=== PATIENT | male | born 1945 | race Caucasian/White ===

== ENCOUNTER 2018-12-15 16:00 | Inpatient (IN) | payer OTHER ==
--- NOTE | 2018-12-15 16:14 | PDOC ---
Rapid Medical Evaluation Chief Complaint: Shortness of Breath Time Seen by Provider: 12/15/18 16:11 Medical Evaluation: Allergies Allergy/AdvReac Type Severity Reaction Status Date / Time No Known Allergies Allergy Verified 03/12/15 18:37 12/15/18 16:11 This patient had a brief in-person evaluation in triage CC: called by pmd for admission and further evaluation PE: appears short of breath decrease lung sound posteriorly o2 via nasal cannula bipedal edema, l>r, + erythematous of left leg orders:ekg, chest xray, labs This patient will proceed to the ED for further evaluation 12/15/18 16:13 Discharge Disposition - Diagnosis Cellulitis of leg - Referrals - Patient Instructions - Post Discharge Activity
[2018-12-15 17:27] LABS: BASO % 0.3 % (0-2.0); EOS % 0.8 % (0-4.5); HEMATOCRIT 36.7 % (35.4-49); LYMPH % 7.2 % (8-40); MCH 33.6 pg (25.7-33.7); MCHC 32.7 g/dl (32.0-35.9); MEAN CELL VOLUME 102.7 fl (80-96); MEAN PLT VOLUME 8.5 fl (7.5-11.1); MONO % 8.8 % (3.8-10.2); NEUT % 82.9 % (42.8-82.8); PLATELET COUNT 190 K/MM3 (134-434); RBC 3.57 M/mm3 (4.00-5.60); RDW 16.1 % (11.9-15.9); WHITE BLOOD COUNT 7.8 K/mm3 (4.0-10.0)
--- NOTE | 2018-12-15 17:47 | PDOC ---
History of Present Illness - General Chief Complaint: Shortness of Breath Stated Complaint: DIFFICULTY BREATHING Time Seen by Provider: 12/15/18 16:11 - History of Present Illness Initial Comments: Thompson Goodman is a 73yo man with a PMH of CHF, pulmonary HTN, severe COPD on home O2 (fev1 at 23% per , 3L at baseline), CAD s/p RCA stent who presents with worsening somnolence, hyoxia w/ increased O2 requirement, and LLE cellulitis. His is at bedside and provides additional evaluation. According to his , Mr Goodman had been doing well at home (recent PFT's, recent cardiac cath showing patent stent) but tripped and cut his left 1st toe about weeks ago. She reports that he was not caring for it very well, and the toe became infected. He went to his PMD and was diagnosed with cellulitis and started on Augmentin a few days ago. The wound continued to worsen, however, and she states that she saw increasing "green pus" draining from the wound, and he went back to the PMD yesterday. He was sent to urgent care for additional management, had cultures sent, and was told he would get new antibiotics when the cultures resulted. Today, he was called by his PMD and told to go to the ED for admission as he would need IV antibiotics. According to Mr Goodman's , he has become increasingly somnolent over the past week, sleeping up to 20 hours a day and falling asleep sitting up. He is normally awake, alert, and oriented; he has no cognitive deficits at baseline but has become confused. She additinoally notes that he has had an increased oxygen requirement, up to 5-6L to maintain sats of 90%. She believes that he was febrile yesterday though does not note fever today. Past History - Past Medical History Allergies/Adverse Reactions: Allergies Allergy/AdvReac Type Severity Reaction Status Date / Time No Known Allergies Allergy Verified 12/15/18 16:12 Home Medications: Ambulatory Orders Advair 500Mcg/50Mcg 01/09/12 Aspirin [ASA] 81 mg PO DAILY 01/09/12 Carvedilol [Coreg] 25 mg PO BID 01/09/12 Clopidogrel Bisulfate [Plavix] 75 mg PO DAILY 01/09/12 Ezetimibe [Zetia] 10 mg PO 01/09/12 Sertraline HCl [Zoloft] 25 mg PO DAILY 01/09/12 Simvastatin [Zocor] 5 mg PO 01/09/12 Asthma: Yes Cardiac Disorders: Yes (STENT) COPD: Yes Hypercholesterolemia: Yes Psychiatric Problems: Yes (DEPRESSION) Other medical history: CAD,PULMUNORY HYPERTESION - Surgical History Cardiac Surgery: Yes (stent) - Suicide/Smoking/Psychosocial Hx Smoking Status: No Smoking History: Never smoked Number of Cigarettes Smoked Daily: 10 Information on smoking cessation initiated: No Hx Alcohol Use: No Drug/Substance Use Hx: No Substance Use Type: None Hx Substance Use Treatment: No Review of Systems - Review of Systems Comments:: General: No fevers, no chills, no weight or appetite change, no malaise HEENT: No changes in vision, no changes in hearing, no congestion, no sore throat CV: No chest pain, no palpitations, +worsening BLE edema Pulm: See HPI - COPD, on home O2 GI: No nausea or vomiting, no change in bowel habits, no melena : No frequency, no urgency, no dysuria Musc: No back pain, no joint swelling, no recent injury Skin: LLE cellulitis, see HPI Endo: No excessive thirst, no heat/cold intolerance Heme: No unusual bruising or bleeding, no swollen glands Neuro: No syncope, no numbness/tingling, no focal weakness Vasc: No claudication Psych: No recent change in mood, no SI or HI *Physical Exam - Vital Signs Last Vital Signs Temp Pulse Resp BP Pulse Ox 98.3 F 75 23 H 105/50 L 83 L 12/15/18 16:05 12/15/18 16:05 12/15/18 16:05 12/15/18 16:05 12/15/18 16:05 - Physical Exam Comments: General: In some distress HEENT: Atraumatic, PERRL, EOMI, MMM, neck w/ full RM Cards: RRR, no murmur appreciated Pulm: Distant breath sounds, very poor air movement, +use of abdominal muscles. No clear wheezing or crackles Abd: Soft, nontender, nondistended Ext: BLE w/ 2-3+ pitting edema. LLE with erythema to anterior conteh with small tense vesicles. Small cut without drainage or bleeding to medial left 1st toe. Sensation to light touch intact over distal foot. Able to move toes. Normal capillary refill Vasc: Extremities WWP. Pedal pulses non-palpable 2/2 edema Skin: Normal color, no rashes or lesions Neuro: Awake, responsive to direct questions but repetitive, forgetful, not able to provide detailed information. CN grossly intact. Motor/sensory grossly intact and symmetric Psych: Mood appropriate to situation ED Treatment Course - LABORATORY CBC & Chemistry Diagram: 12/15/18 17:10 12/15/18 17:10 - ADDITIONAL ORDERS Additional order review: Laboratory Results 12/15/18 12/15/18 17:08 17:02 Anticoagulation Therapy No Result Required. Puncture Site No Result Required. ABG pH 7.33 L ABG pCO2 at Pt Temp 70.0 H ABG pO2 at Pt Temp 56.0 L ABG HCO3 35.5 H ABG O2 Sat (Measured) 86.8 L ABG O2 Content 13.4 L ABG Base Excess 7.8 H Dante Test No Result Required. O2 Delivery Device No Result Required. Oxygen Flow Rate No Result Required. Vent Mode No Result Required. Vent Rate No Result Required. Mechanical Rate No Result Required. Pressure Support Vent No Result Required. Magnesium 2.9 H 12/15/18 17:10 RBC 3.57 L MCV 102.7 H MCHC 32.7 RDW 16.1 H MPV 8.5 Neutrophils % 82.9 H Lymphocytes % 7.2 L D Monocytes % 8.8 Eosinophils % 0.8 Basophils % 0.3 Medical Decision Making - Medical Decision Making 12/15/18 17:46 Thompson Goodman is a 73yo man with a PMH of CHF, pulmonary HTN, severe COPD on home O2 (fev1 at 23% per , 3L at baseline), CAD s/p RCA stent who presents with worsening somnolence and confusion, hypoxia w/ increased O2 requirement, and LLE cellulitis not responsive to outpatient management. - Hypotensive to 96/56 when initially seen, Concern for sepsis secondary to LLE cellulitis. - Sats on 4L in mid 80's, possible CHF or COPD exacerbation, possible hypercapnea. Poor air movement, cannot exclude pneumonia - Septic workup ordered, ABG and BNP added 12/15/18 18:04 - Labs reviewed. Notable for ABG with acidosis to 7.33, hypercapnea to 68, bicarb 35 - c/w respiratory acidosis w/ metabolic compensation - BNP 2865, per was 2400 yesterday - CBC unremarkable - CXR with significant pulmonary edema - Vancomycin, lasix, duonebs, tetanus ordered 12/15/18 19:22 - Spoke to medicine team Dr Leti Crabtree regarding admission. Will be admitted to telemetry on Dr Mckeon's service - Updated pt and regarding results and plan. Both agree w/ admission Discussed with Dr France. Jennifer Livingston PGY2 *DC/Admit/Observation/Transfer Diagnosis at time of Disposition: COPD exacerbation Cellulitis of leg Qualifiers: Laterality: left Qualified Code(s): L03.116 - Cellulitis of left lower limb CHF exacerbation Qualifiers: Heart failure type: unspecified Qualified Code(s): I50.9 - Heart failure, unspecified - Discharge Dispostion Decision to Admit order: Yes - Referrals - Patient Instructions - Post Discharge Activity
[2018-12-15 17:52] LABS: ALBUMIN 3.6 g/dl (3.4-5.0); ALK PHOS 79 U/L (45-117); ANION GAP 1 MMOL/L (8-16); BILIRUBIN,TOTAL 0.7 mg/dL (0.2-1); CALCIUM 8.9 mg/dL (8.5-10.1); CHLORIDE 102 mmol/L (98-107); CO2 38 mmol/L (21-32); GLUCOSE,RANDOM 106 mg/dL (74-106); N-TERMINAL BNP 2865.3 pg/ml (5-125); POTASSIUM 5.1 mmol/L (3.5-5.1); SGOT/AST 29 U/L (15-37); SGPT/ALT 50 U/L (13-61); SODIUM 142 mmol/L (136-145); TOT PROT 7.2 g/dl (6.4-8.2)
[2018-12-15] MEDS ORDERED: DIPHTH,PERTUSS(ACELL),TET 0.5 ML DISP.SYRIN IM ONE ×2 (17:53→18:05)
[2018-12-15] MEDS ORDERED: FUROSEMIDE 40 MG/4 ML INJECTABLE VIAL IVPUSH ONE (17:55)
--- NOTE | 2018-12-15 17:55 | PDOC ---
Documentation entered by Raghu Edmonds SCRIBE, acting as scribe for Nathalia France DO. Nathalia France DO: This documentation has been prepared by the Kendal petty Elijah, SCRIBE, under my direction and personally reviewed by me in its entirety. I confirm that the documentation accurately reflects all work, treatment, procedures, and medical decision making performed by me. Attending Attestation - Resident Resident Name: Jennifer Livingston - ED Attending Attestation I have performed the following: I have examined & evaluated the patient, The case was reviewed & discussed with the resident, I agree w/resident's findings & plan - HPI HPI: 12/15/18 17:07 Patient is a 73 year old male with a significant past medical history of CHF, COPD and pulmonary HTN who presents to the ED with AMS and a wound to the left big toe occurring a week ago. As per at bedside the patient tripped on a chair a scraped his toe along the floor. Since then the patient has not treated the wound until being seen at his PCP at [facility] and was the brought into the ED. Patient denies CP, fever and cough. Allergies: NKA PCP: Dr. Charis Lamas - Physicial Exam PE: 12/15/18 17:12 Constitutional: +Poor Historian. Awake, alert, oriented. Head: Normocephalic. Atraumatic Eyes: PERRL. EOMI. Conjunctivae are not pale. ENT: Mucous membranes are moist and intact. Posterior pharynx without exudates or erythema. Uvula midline. Neck: Supple. Full ROM. No lymphadenopathy. Cardiovascular: Regular rate. Regular rhythm. S1, S2 regular. Distal pulses are 2+ and symmetric. Pulmonary/Chest: +Lungs very diminished with possible rale sounds at base. No wheezing or rhonchi. Abdominal: Soft and non-distended. There is no tenderness. No rebound, guarding or rigidity. No organomegaly. No palpable masses. Good bowel sounds. Back: No CVA tenderness. Musculoskeletal: + 4+ pitting edema to both lower extremities. +Left Big Toe cellulitis. no perineal drainage but warm and redness across forefoot up to tibula with some blistering. Full range of motion in all extremities. Skin: Skin is warm and dry. No petechiae. No purpura. Neurological: Alert and oriented to person, place, and time. Cranial nerves II -XII are grossly intact. Normal speech. Strength is grossly symmetric. No sensory deficits. Psychiatric: Good eye contact. Normal interaction, affect and behavior. - Medical Decision Making 12/15/18 17:51 I, Dr. Nathalia France, DO, attest that this document has been prepared under my direction and personally reviewed by me in its entirety. I further attest, that it accurately reflects all work, treatment, procedures and medical decision -making performed by me. 12/15/18 17:51 a/p: 73yo male with hx of copd/chf with sob and L leg redness and swelling -pt is a poor historian -pt states sob when laying flat, denies cp -denies abd pain -redness and swelling to l leg -b/l pitting edema to LE -low pulse ox upon arrival -concern for copd/chf exacerbation -concern for LE cellulitis from foot wound -will update tetanus -will send labs, ekg, cxr, foot xray, tetanus -cultures -abg -will need admission -PMD [facility] -Cards: Dr. Lawton -pulm at [facility] -recent cath 3 weeks ago R groin that is well healed, no bruit/thrill, minimal ecchymosis 12/15/18 17:57 pt with hypercapnic resp acidosis and also with hypoxia-will dose nebs elevated bnp, sob, orthopnea, LE swelling - will dose lasix 12/15/18 18:36 cxr shows acute pulm edema foot xray does not show signs of osteo on prelim read 12/15/18 18:44 resident discussed the case with KATHY who accepts pt to service Heart Score/ECG Review - ECG Intrepretation Comment:: 12/15/18 17:54 sinus at 75, lvh, t wave inversions with st depression v4-6, i, avl, abnl ekg, pvc
[2018-12-15 17:56] LABS: ARTERIAL BLOOD GAS PCO2 68.3 mmHg (35-45); ARTERIAL BLOOD GAS PO2 64.9 mmHg (80-105)
[2018-12-15] MEDS ORDERED: VANCOMYCIN 1 GM in D5W (PRE-DOCKED) 1,000 MG/250 ML IVPB ONE (17:56)
[2018-12-15] MEDS ORDERED: ALBUTEROL SO4 2.5/IPRATROPIUM 0.5 INH SOL 3 ML VIAL.NEB. NEB ONE ×3 (17:57→18:05)
[2018-12-15 17:58] LABS: ARTERIAL BLD GAS O2 SATURATION 91.6 % (95-98)
[2018-12-15 18:00] LABS: ARTERIAL BLOOD GAS BASE EXCESS 7.5 meq/l (-2-2)
[2018-12-15 18:03] LABS: CARBOXYHEMOGLOBIN 1.9 % (0-2)
[2018-12-15] MEDS ORDERED: VANCOMYCIN 1 GRAM (PRE-DOCKED) 1,000 MG/250 ML BAG IVPB ONE (18:05)
[2018-12-15] MEDS ORDERED: FUROSEMIDE 40 MG/4 ML INJECTABLE VIAL ONE (18:05)
[2018-12-15 18:06] LABS: ARTERIAL BLOOD GAS pH 7.33 (7.35-7.45)
--- NOTE | 2018-12-15 19:18 | HP ---
CHIEF COMPLAINT: weakness and cellulitis PCP: Zoltan cards: Aravind HISTORY OF PRESENT ILLNESS: Mr. Goodman is a 73yo male with COPD, newly diagnosed pulmonary HTN, sleep apnea , NYHA class II CHF, HTN, HLD, CAD s/p RCA stent who presents with weakness that has slowly progressed over the last 2 weeks. His , who was at bedside, reports that since the weather has gotten hotter, he has been worsening. He has become increasingly somnolent and has been sleeping up to 18 hours/day. Yesterday he was sitting at a table at home and got up then fell on the floor. He denies LOC but his reports he did hit his head. She did not witness the fall. He reports recently having a runny nose but no fever, chills, sore throat , or sinus congestion. He denies shortness of breath, cough, and wheezing. He does report chronic pedal edema which has gotten worse in the last week, especially the left foot that was injured. The patient also had a fall 1 week ago that resulted in an abrasion on his left conteh and foot. The leg has since developed vesicles, and his foot has a weeping wound and is more swollen than baseline. He also reports increased pedal edema and mild tenderness of his foot. He began Augmentin 5 days ago and had little improvement, so he went to urgent care yesterday. Cultures were done. He was scheduled to start doxy at home today but was sent by PCP to ED for abx. His reports he was just diagnosed with pulmonary HTN and has not picked up new script yet. She also said he does not allow her to go to doctor's appointments as well. She is concerned for poor medication compliance. He is supposed to use CPAP at night but does she says he does not use it. ER course was notable for: (1) CXR showed vascular congestion (2) 40mg Lasix and dub-neb administered (3) Vancomycin administered, x-ray was unremarkable Recent Travel: no PAST MEDICAL HISTORY: 1. COPD 2. pulm HTN 3. NYHA class II CHF (no recent echo on file) 4. HTN 5. HLD 6. CAD s/p RCA stent PAST SURGICAL HISTORY: knee Social History: Smoking: quit 25 years ago, 1ppd prior Alcohol: socially Drugs: no lives at home with - she reports he does not allow her to go to dr santos and there are concerns for medication compliance as well Family History: father passed from [place] at 76 Allergies No Known Allergies Allergy (Verified 12/15/18 16:12) HOME MEDICATIONS: Home Medications Medication Instructions Recorded Advair 500Mcg/50Mcg 01/09/12 Aspirin [ASA] 81 mg PO DAILY 01/09/12 Carvedilol [Coreg] 25 mg PO BID 01/09/12 Clopidogrel Bisulfate [Plavix] 75 mg PO DAILY 01/09/12 Ezetimibe [Zetia] 10 mg PO 01/09/12 Sertraline HCl [Zoloft] 25 mg PO DAILY 01/09/12 Simvastatin [Zocor] 5 mg PO 01/09/12 REVIEW OF SYSTEMS CONSTITUTIONAL: Present: generalized weakness Absent: fever, chills, diaphoresis, malaise, loss of appetite, weight change HEENT: Present: rhinorrhea Absent: nasal congestion, throat pain, ear pain CARDIOVASCULAR: Present: peripheral edema Absent: chest pain RESPIRATORY: Absent: cough, shortness of breath, dyspnea with exertion, orthopnea, wheezing GASTROINTESTINAL: Absent: abdominal pain, nausea, vomiting, diarrhea GENITOURINARY: Absent: dysuria MUSCULOSKELETAL: Absent: myalgia SKIN: Present: abrasion, blister Absent: rash, itching, pallor HEMATOLOGIC/IMMUNOLOGIC: Absent: easy bleeding, easy bruising, frequent infections ENDOCRINE: Absent: unexplained weight gain, unexplained weight loss, heat intolerance, cold intolerance NEUROLOGIC: Absent: headache, dizziness PSYCHIATRIC: Absent: anxiety, depression, suicidal or homicidal ideation, hallucinations. ROS limited PHYSICAL EXAMINATION Vital Signs - 24 hr 12/15/18 12/15/18 12/15/18 16:05 16:45 19:07 Temperature 98.3 F 97.3 F L Pulse Rate 75 Pulse Rate [ 73 Right Radial] Respiratory 23 H 19 Rate Blood Pressure 105/50 L Blood Pressure 96/56 L [Left Arm] O2 Sat by Pulse 83 L 92 L 93 L Oximetry (%) GENERAL: Awake, alert, and fully oriented, in no acute distress. Pt mildly altered. HEAD: Normal with no signs of trauma. EYES: Pupils equal, round and reactive to light, extraocular movements intact, sclera anicteric, conjunctiva clear. No lid lag. EARS, NOSE, THROAT: Ears normal, nares patent. Moist mucous membranes. NECK: Normal range of motion, supple without lymphadenopathy, JVD, or masses. LUNGS: Crackles heard bilaterally, no wheezing or accessory muscle use, unable to completely inhale HEART: Regular rate and rhythm, systolic murmur ABDOMEN: Soft, nontender, not distended, normoactive bowel sounds, no guarding, no rebound, no masses. MUSCULOSKELETAL: Normal range of motion at all joints. No bony deformities or tenderness. UPPER EXTREMITIES: 2+ pulses, warm, well-perfused. No cyanosis. No clubbing. No peripheral edema. LOWER EXTREMITIES: Dorsalis pulses not appreciated, feet are cold, +1 pitting edema in both feet with left foot sightly more edematous, left steeping press tender to touch. Left dorsal surface small abrasion near base of toes. Lower third of left conteh erythematous with multiple vesicles. NEUROLOGICAL: Cranial nerves II-XII intact. Normal speech. PSYCHIATRIC: Cooperative. Good eye contact. Appropriate mood and affect. SKIN: Warm, dry, normal turgor, no rashes or lesions noted other than listed in LE, normal capillary refill. Laboratory Results - last 24 hr 12/15/18 12/15/18 12/15/18 16:51 17:02 17:08 WBC RBC Hgb Hct MCV MCH MCHC RDW Plt Count MPV Absolute Neuts (auto) Neutrophils % Lymphocytes % Monocytes % Eosinophils % Basophils % Nucleated RBC % Anticoagulation Therapy No Result Required. Puncture Site No Result Required. ABG pH 7.33 L ABG pCO2 at Pt Temp 68.3 H ABG pO2 at Pt Temp 64.9 L ABG HCO3 35.0 H ABG O2 Sat (Measured) 91.6 L ABG O2 Content 14.4 L ABG Base Excess 7.5 H Dante Test No Result Required. Carboxyhemoglobin 1.9 Methemoglobin 0.5 O2 Delivery Device No Result Required. Oxygen Flow Rate No Result Required. Vent Mode No Result Required. Vent Rate No Result Required. Mechanical Rate No Result Required. Pressure Support Vent No Result Required. Sodium Potassium Chloride Carbon Dioxide Anion Gap BUN Creatinine Est GFR (CKD-EPI)AfAm Est GFR (CKD-EPI)NonAf Random Glucose Lactic Acid 2.0 Calcium Magnesium Total Bilirubin AST ALT Alkaline Phosphatase Troponin I B-Natriuretic Peptide Total Protein Albumin 12/15/18 12/15/18 12/15/18 17:08 17:10 17:10 WBC 7.8 RBC 3.57 L Hgb 12.0 Hct 36.7 D MCV 102.7 H MCH 33.6 MCHC 32.7 RDW 16.1 H Plt Count 190 MPV 8.5 Absolute Neuts (auto) 6.4 Neutrophils % 82.9 H Lymphocytes % 7.2 L D Monocytes % 8.8 Eosinophils % 0.8 Basophils % 0.3 Nucleated RBC % 0 Anticoagulation Therapy Puncture Site ABG pH ABG pCO2 at Pt Temp ABG pO2 at Pt Temp ABG HCO3 ABG O2 Sat (Measured) ABG O2 Content ABG Base Excess Dante Test Carboxyhemoglobin Methemoglobin O2 Delivery Device Oxygen Flow Rate Vent Mode Vent Rate Mechanical Rate Pressure Support Vent Sodium 142 Potassium 5.1 Chloride 102 Carbon Dioxide 38 H Anion Gap 1 L BUN 29.0 H Creatinine 1.0 Est GFR (CKD-EPI)AfAm 86.76 Est GFR (CKD-EPI)NonAf 74.86 Random Glucose 106 Lactic Acid Calcium 8.9 Magnesium 2.9 H Total Bilirubin 0.7 AST 29 ALT 50 Alkaline Phosphatase 79 Troponin I < 0.02 B-Natriuretic Peptide 2865.3 H Total Protein 7.2 Albumin 3.6 ASSESSMENT/PLAN: Mr. Goodman is a 73yo male with COPD, newly diagnosed pulmonary HTN, RADHIKA non- compliant on CPAP, NYHA class II CHF, HTN, HLD, CAD s/p RCA stent who presents for gradual increase in weakness over 2 weeks and a fall yesterday. He also has an abrasion from a fall one week ago. 1. weakness 2/2 COPD exacerbation- He denies SOB, but has become increasingly weak over the last couple weeks. Increased O2 at home 3L-->6L. According to his , he may not be compliant on meds. CXR showed vascular congestion which is worse than previous CXR in 2015 on file. UA is negative for infection. Pt is afebrile and has no white count (7.8). Pt BP 107/55. ABG @17:02 pH 7.33, pCO2 68.3. He was on 6L O2 NC in ED sat in low 90s, and received duo-neb. He denies SOB but he is not a good historian. Given the weakness, he likely has a COPD exacerbation. Pt could also have CHF exacerbation vs pulmonary HTN vs unlikely infection. -duo-nebs Q4H PRN SOB -Ventolin 2 puffs Q4H PRN -prednisone 60mg Q daily -BiPAP, but pt may not be compliant -repeat CXR during hospitalization 2. acute on chronic CHF- Pt has increasing weakness and has had recent falls. He is not compliant on meds. CXR showed vascular congestion. BNP 2865 with no comparison on file. Pt BP is 107/55. EKG shows no acute changes. He denies any cardiac or pulmonary symptoms in ROS, so history is limited in diagnosing. He does have crackles bilaterally on auscultation and pitting edema in feet. He does not have an echo on file. This is likely acute on chronic CHF. Per his answers, he is currently NYHA Class II. -Bumex 2mg BID x 1 day, then reevaluate -start home meds- metoprolol succinate, Bumex as above, epilerenone -CXR during hospitalization -CBC -CMP -Mg -telemetry 3. respiratory acidosis- ABG @17:02 pH7.33, pCO2 68.3, pO2 64.9. CMP bicarb 38 so has metabolic compensation. Pt does not use CPAP at home. He does normally use 3L O2 but has been increased in the last couple weeks. -encourage BiPAP use -repeat ABG -repeat CMP 4. left leg cellulitis- Pt had fall with abrasion. He has had erythema, vesicles , and increased edema and tenderness on foot. Augmentin did not improve symptoms. Left foot x-ray is unremarkable. Pt was to start doxy today. He was given Vancomycin 1,000mg in ED. 5. macrocytosis- MCV 102.7. Pt is not anemic (12.0/36.7). -B12 -folate -iron studies 6. hyperlipidemia- no recent lipid panel on file, but pt is on meds at home -ezetimibe and lipitor from home 7. mood disorder- Pt appears to be altered and cannot give good history. He is pleasant during interviewing. He has had suicidal ideations lately though. He likely has bipolar disorder vs MDD vs TARAN. -continue home lamictal, sertraline -psych consult DVT Ppe Lovenox 40mg Q daily FEN PO fluids monitor electrolytes sodium restricted diet Visit type - Emergency Visit Emergency Visit: Yes ED Registration Date: 12/15/18 Care time: The patient presented to the Emergency Department on the above date and was hospitalized for further evaluation of their emergent condition. - New Patient This patient is new to me today: Yes Date on this admission: 12/16/18 - Critical Care Critical Care patient: No ATTENDING PHYSICIAN STATEMENT I saw and evaluated the patient. I reviewed the resident's note and discussed the case with the resident. I agree with the resident's findings and plan as documented. SUBJECTIVE: OBJECTIVE: ASSESSMENT AND PLAN:
--- NOTE | 2018-12-15 20:09 | PN ---
Teaching Attending Note Name of Resident: Pat Yarbrough ATTENDING PHYSICIAN STATEMENT I saw and evaluated the patient. I reviewed the resident's note and discussed the case with the resident. I agree with the resident's findings and plan as documented. Patient presents tot he ER with multiple complaints; LE cellulitis and swelling with elevated BNP with intermittent confusion at home. He is afebrile and hemodynamically stable. 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 He is also noncompliant with CPAP (history of RADHIKA). Some discrepancies between medication lists from pulm and CV med lists. Sounds like he should be on Bumex 2 BID (1:1 IV conversion); given lasix in ER. No prior echoes or BNP in system but recent cath (R and L heart? at [facility] with records pending). Recent in-office spirometry shows diminished FEV1 with some reversibility ( says he actually had asthma hx); scanning into chart. became tearful during our visit and requested social work help due to issues caring for him at home. Foot XR negative for osteo LE venous/arterial dopplers pending ASSESSMENT AND PLAN: Patient with a history of pulmonary HTN (WHO class unknown), COPD/Asthma (with worsening FEV1, on home O2), CHF (LVEF, Diastolic fn unknown but with recent cath/OP studies which are pending); he presents with L-foot wound, intermittent confusion, LE edema (which is somewhat chronic) and noted to have an elevated BNP. tells us he is noncompliant at home and she is requesting psychiatry consult/social work consult. # Chronic Respiratory Acidosis 2/2 Pulmonary HTN/COPD # Toxic Metabolic Encephalopathy 2/2 intermittent CO2 narcosis due to noncompliance # COPD exacerbation # CHF exacerbation (LVEF and type unknown) # Noncompliance # Foot Wound # CKD-III # Depression Patient presents for multiple issues. In terms of the respiratory issues, I believe he is in slight COPD exacerbation and CHF (2/2 pulm HTN? Records pending) exacerbation also due to noncompliance; this combined with his aversion to nightly CPAP is likely contributing to his toxic encephalopathy. We will put him on qHS CPAP, give him his nightly dose of Bumex IV combined with the dose of lasix he got in the ER, and then continue him on 2mg BID ( noncompliance at home so will try with his old home dose with the increased dose given tonight). Obtain OP cath and echo results; can hold off ordering here unless no recent echo. For COPD exacerbation, we will place him on PO prednisone and schedule his duonebs and place him on PRN albuterol. Can consider pulmonary consult. Can also consider CV consult. For his foot, checking ESR and CRP. As no fever or WBC can avoid IV abx for now. Followup blood cultures; wound cultures from a superficial source on the foot are unreliable. Consider wound care. If clinically worsen empiric abx. Given CAD hx is at risk for PAD so will check dopplers. For macrocytosis without anemia, checking B12/Folate and iron studies. Though h/ h wnl, he is chronically hypoxemic which could augment RBC production. Full code
[2018-12-15] MEDS ORDERED: ALBUTEROL SO4 2.5/IPRATROPIUM 0.5 INH SOL 3 ML VIAL.NEB. NEB PRN (20:10)
[2018-12-15] MEDS ORDERED: BUMETANIDE INJECTION 1 MG/4 ML VIAL IVPUSH ONE ×2 (20:54→20:55)
[2018-12-15] MEDS ORDERED: BUMETANIDE 0.25 MG/1 ML INJ. 10ML MULTI-DOSE VIAL IVPUSH ONE (21:00)
[2018-12-15 21:06] LABS: URINE APPEARANCE CLEAR; URINE BILIRUBIN NEGATIVE (NEGATIVE); URINE COLOR YELLOW; URINE GLUCOSE (UA) NEGATIVE (NEGATIVE); URINE KETONE NEGATIVE (NEGATIVE); URINE LEUK ESTERASE NEGATIVE (NEGATIVE); URINE NITRITE NEGATIVE (NEGATIVE); URINE PROTEIN NEGATIVE (NEGATIVE)
[2018-12-15] MEDS: RANOLAZINE E.R. 1,000 MG TABLET (FP) PO SCH (22:37)
[2018-12-15] MEDS: predniSONE 20 MG TABLET (UD) PO SCH (22:37)
[2018-12-15] MEDS: ATORVASTATIN CA 40 MG TABLET (FP) PO SCH (22:37)
[2018-12-15] MEDS: traZODone HCL 50 MG TABLET (FP) PO SCH (22:37)
[2018-12-15] MEDS: ENOXAPARIN NA (PORCINE) 40 MG/0.4 ML DISP.SYRIN SQ SCH (22:47)
[2018-12-16] MEDS: EPLERENONE 25 MG TABLET PO SCH ×2 (05:35→10:40)
[2018-12-16] MEDS ORDERED: BUMETANIDE INJECTION 1 MG/4 ML VIAL IVPUSH SCH (06:00)
[2018-12-16 07:04] LABS: HEMATOCRIT 34.9 % (35.4-49); HEMOGLOBIN 11.3 GM/dL (11.7-16.9); MCH 33.3 pg (25.7-33.7); MCHC 32.5 g/dl (32.0-35.9); MEAN CELL VOLUME 102.6 fl (80-96); MEAN PLT VOLUME 8.9 fl (7.5-11.1); PLATELET COUNT 182 K/MM3 (134-434); RDW 15.6 % (11.9-15.9); WHITE BLOOD COUNT 7.5 K/mm3 (4.0-10.0)
[2018-12-16 07:40] LABS: ALBUMIN 3.3 g/dl (3.4-5.0); BILIRUBIN,TOTAL 0.6 mg/dL (0.2-1); BLOOD UREA NITROGEN 32.5 mg/dL (7-18); CALCIUM 8.3 mg/dL (8.5-10.1); CREATININE 1.1 mg/dL (0.55-1.3); POTASSIUM 5.1 mmol/L (3.5-5.1); TOT PROT 6.4 g/dl (6.4-8.2)
[2018-12-16] MEDS ORDERED: SERTRALINE HCL 25 MG TABLET (FP) PO SCH (10:00)
[2018-12-16] MEDS ORDERED: PT OWN MED DRAWER 7, Y5N ONE ×3 (10:24→22:08)
[2018-12-16] MEDS: ASPIRIN 81 MG CHEWABLE TABLETS PO SCH (10:39)
[2018-12-16] MEDS: predniSONE 20 MG TABLET (UD) PO SCH (10:39)
[2018-12-16] MEDS: RANOLAZINE E.R. 1,000 MG TABLET (FP) PO SCH ×2 (10:40→21:23)
[2018-12-16] MEDS: EZETIMIBE 10 MG TABLET (FP) PO SCH (10:40)
[2018-12-16] MEDS: ENOXAPARIN NA (PORCINE) 40 MG/0.4 ML DISP.SYRIN SQ SCH (10:40)
[2018-12-16] MEDS: lamoTRIgine 25 MG TABLET PO SCH (10:40)
--- NOTE | 2018-12-16 11:33 | CON.CARD ---
Consult Consult Specialty:: Cardiology Referred by:: Hospitalist Medicine Reason for Consultation:: LE edema, MCNAM[place], CAD s/p DAVID, diastolic dysfunction, HTN heart disease, hyperlipidemia, COPD, OSAS and pulm HTN - History of Present Illness Chief Complaint: Confusion and LE edema History of Present Illness: 73 yo male CAD s/p DAVID prox RCA 08/23/2003, DAVID for prox RCA ISR 10/03/2004, POBA prox RCA 12/12/2018, [employer] prox RCA 12/21/2012), diastolic dysfunction with h /o failure, hypertensive cardiovascular disease, hyperlipidemia, COPD on home O2 , OSAS noncompliant with cpap, pulm HTN recent R&LHc 11/12/2018 referred for LE cellulitis and swelling with elevated BNP with intermittent confusion at home. He is afebrile and hemodynamically stable. 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 He is also noncompliant with CPAP (history of RADHIKA). Some discrepancies between medication lists from pulm and CV med lists. Sounds like he should be on Bumex 2 BID (1:1 IV conversion); given lasix in ER. Recent in-office spirometry shows diminished FEV1 with some reversibility ( says he actually had asthma hx); scanning into chart. became tearful during visit and requested social work help due to issues caring for him at home. He continues to report dyspnea with min activity and persistent dependent LE edema, denies chest pain. Foot XR negative for osteo LE venous/arterial dopplers pending - History Source History Provided By: Medical Record Limitations to Obtaining History: Poor Historian - Alcohol/Substance Use Hx Alcohol Use: No - Smoking History Smoking history: Never smoked Aproximately how many cigarettes per day: 10 Home Medications - Allergies Allergies/Adverse Reactions: Allergies Allergy/AdvReac Type Severity Reaction Status Date / Time No Known Allergies Allergy Verified 12/15/18 16:12 - Home Medications Home Medications: Ambulatory Orders Aspirin [ASA] 81 mg PO DAILY 01/09/12 Sertraline HCl [Zoloft] 200 mg PO DAILY 01/09/12 Albuterol Sulfate Inhaler - [Ventolin HFA Inhaler -] 1 - 2 puff IH PRN PRN MDD Q4-6 hours 12/15/18 Atorvastatin Ca [Lipitor] 40 mg PO HS 12/15/18 Bumetanide 2 mg PO BID 12/15/18 Cholecalciferol (Vitamin D3) [Vitamin D3] 1,000 mg PO DAILY 12/15/18 Eplerenone 25 mg PO BID 12/15/18 Ezetimibe 10 mg PO DAILY 12/15/18 Lamotrigine [Lamictal] 25 mg PO DAILY 12/15/18 Metoprolol Succinate [Toprol Xl] 50 mg PO BID 12/15/18 Ranolazine [Ranexa] 1,000 mg PO BID 12/15/18 Umeclidinium [place] [Incruse Ellipta] 1 puff IH DAILY 12/15/18 Review of Systems - Review of Systems Cardiovascular: reports: Edema, Shortness of Breath Respiratory: reports: Exercise Intolerance, SOB on Exertion Vital Signs: Vital Signs Temperature 97.8 F 12/16/18 05:16 Pulse Rate 63 12/16/18 08:44 Respiratory Rate 22 H 12/16/18 08:44 Blood Pressure 107/69 12/16/18 08:44 O2 Sat by Pulse Oximetry (%) 96 12/16/18 08:47 Constitutional: Yes: No Distress, Calm Neck: Yes: Supple Respiratory: Yes: Regular, Diminished, On Nasal O2 Gastrointestinal: Yes: Normal Bowel Sounds, Soft Cardiovascular: Yes: Regular Rate and Rhythm JVD: No Carotid Bruit: No Heart Sounds: Yes: S1, S2 Murmur: Yes: Systolic Murmur, Grade 2 Edema: Yes Edema: LLE: 1+, RLE: 1+ - Other Data Labs, Other Data: CBC, BMP 12/16/18 05:52 12/16/18 05:52 Troponin, BNP 12/15/18 17:10 Troponin I < 0.02 B-Natriuretic Peptide 2865.3 H Troponin, BNP 12/15/18 17:10 Troponin I < 0.02 B-Natriuretic Peptide 2865.3 H 10/25/2018 NSR @ 74 LAD, LVH with repol abnl Ejection Fraction %: LVEF > or = 40 % Imaging - Results Chest X-ray: Report Reviewed (Weak inspratory effort, congestive changes) Problem List - Problems (1) Coronary artery disease Code(s): I25.10 - ATHSCL HEART DISEASE OF [place] CORONARY ARTERY W/O ANG PCTRS Qualifiers: Coronary Disease-Associated Artery/Lesion type: [place] artery [place] vs. transplanted heart: [place] heart Associated angina: without angina Qualified Code(s): I25.10 - Atherosclerotic heart disease of [place] coronary artery without angina pectoris (2) S/P right coronary artery (RCA) stent placement Code(s): Z95.5 - PRESENCE OF CORONARY ANGIOPLASTY IMPLANT AND GRAFT (3) Hyperlipidemia Code(s): E78.5 - HYPERLIPIDEMIA, UNSPECIFIED Qualifiers: Hyperlipidemia type: pure hypercholesterolemia Qualified Code(s): E78.00 - Pure hypercholesterolemia, unspecified; E78.0 - Pure hypercholesterolemia (4) RADHIKA (obstructive sleep apnea) Code(s): G47.33 - OBSTRUCTIVE SLEEP APNEA (ADULT) (PEDIATRIC) (5) Pulmonary hypertension assoc with unclear multi-factorial mechanisms Code(s): I27.29 - OTHER SECONDARY PULMONARY HYPERTENSION (6) Toxic metabolic encephalopathy Code(s): G92 - TOXIC ENCEPHALOPATHY (7) Hypertensive cardiomyopathy Code(s): I11.9 - HYPERTENSIVE HEART DISEASE WITHOUT HEART FAILURE; I43 - CARDIOMYOPATHY IN DISEASES CLASSIFIED ELSEWHERE Qualifiers: Heart failure presence: with heart failure Qualified Code(s): I11.0 - Hypertensive heart disease with heart failure; I43 - Cardiomyopathy in diseases classified elsewhere (8) CHF exacerbation Code(s): I50.9 - HEART FAILURE, UNSPECIFIED Qualifiers: Heart failure type: diastolic Qualified Code(s): I50.33 - Acute on chronic diastolic (congestive) heart failure (9) COPD exacerbation Code(s): J44.1 - CHRONIC OBSTRUCTIVE PULMONARY DISEASE W (ACUTE) EXACERBATION (10) Hypertrophic cardiomyopathy Code(s): I42.2 - OTHER HYPERTROPHIC CARDIOMYOPATHY Assessment/Plan 11/12/2018 R&LHc Elevated right-sided pressures, moderate pulm HTN, normal PVRI , elevated PXWP, elevated LVEDP, decreased cardiac output, 1 vessel CAD with occluded prox RCA filling via bridging collaterals, hyperdynamic systolic function 11/08/2018 Echo: Mod cLVH with normal systolic function LVEF 60-65%, grade II diastolic dysfunction with elevated filling pressures, hyperdynamic mid cavity with obliteration suggestive of mid cavity obstruction, resting left ventricular outflow tract gradient 25 mmHg increasing to 33 mmHg with Valsalva, mild LAE, normal RV size and fxn, mild-mod MR, mild TR RVSP 33 mmHg 09/22/2017 Dobutamine Myoview: Moderate size inferior perfusion defect wth mild ischemia, normal LVEF 88% 1. Acute on chronic hypercapneic, hypoxemic respiratory failure with toxic metabolic encephelopathy and underlying 2. Acute on chronic diastolic heart failure, mod functional MS and mod pulm HTH 3. Acute exacerbation of COPD 4. OSAS not compliant with cpap 5. 1 vessel CAD h/o RCA stents 6. Hypertensive heart disease/HOCM of elderly 7. Hyperlipidemia 8. Abnormal Ha1c P:1. IV diuresis (Bumex 2 bid) with monitor diuretic response, renal fxn and electrolytes 2. BD, steroids, O2 as needed, cpap nightly, observe off abx 3. Cardiac MRI as outpatient to evaluate HOCM of elderly 4. Continue ASA 81 qd, eplerenone 25 bid, Zetia 10 qd, Lipitor 40 qd, Toprol XL 50 bid, Ranexa 1000 bid 5. Check TSH, lipid panel, Ha1c, wound care 6. Thank you for consultative opportunity
--- NOTE | 2018-12-16 14:38 | EKG ---
Test Reason : Blood Pressure : / mmHG Vent. Rate : 075 BPM Atrial Rate : 075 BPM P-R Int : 146 ms QRS Dur : 090 ms QT Int : 406 ms P-R-T Axes : 054 -48 153 degrees QTc Int : 453 ms POOR DATA QUALITY, INTERPRETATION MAY BE ADVERSELY AFFECTED SINUS RHYTHM WITH OCCASIONAL PREMATURE VENTRICULAR COMPLEXES POSSIBLE LEFT ATRIAL ENLARGEMENT LEFT ANTERIOR FASCICULAR BLOCK LEFT VENTRICULAR HYPERTROPHY WITH REPOLARIZATION ABNORMALITY LATERAL INFARCT , AGE UNDETERMINED ABNORMAL ECG WHEN COMPARED WITH ECG OF 12-MAR-2015 18:41, SIGNIFICANT CHANGES HAVE OCCURRED Confirmed by LESLEY ALVAREZ MD ([id number]) on 12/16/2018 2:38:21 PM Referred By: Confirmed By:LESLEY ALVAREZ MD
--- NOTE | 2018-12-16 16:06 | PN ---
Physical Exam: SUBJECTIVE: Patient seen and examined at bedside. pt has no acute complaints. pt denies CP, SOB, palpitations, dizziness. Pt states the redness of his legs is improving since the cellulitis first began OBJECTIVE: Vital Signs Period Temp Pulse Resp BP Sys/Govea Pulse Ox Last 24 Hr 97.3 F-98.6 F 63-73 18-22 90-126/48-69 90-96 GENERAL: The patient is awake, alert, and fully oriented, in no acute distress. HEAD: Normal with no signs of trauma. EYES: PERRL, extraocular movements intact, sclera anicteric, conjunctiva clear. No ptosis. ENT: Ears normal, nares patent, oropharynx clear without exudates, moist mucous membranes. NECK: Trachea midline, full range of motion, supple. LUNGS: Breath sounds equal, clear to auscultation bilaterally, no wheezes, no crackles, no accessory muscle use. HEART: Regular rate and rhythm, S1, S2 without murmur, rub or gallop. ABDOMEN: Soft, nontender, nondistended, normoactive bowel sounds, no guarding, no rebound, no hepatosplenomegaly, no masses. EXTREMITIES: 2+ pulses, warm, well-perfused, no edema. NEUROLOGICAL: Cranial nerves II through XII grossly intact. Normal speech, gait not observed. PSYCH: Normal mood, normal affect. SKIN: Warm, dry, normal turgor, no rashes or lesions noted Laboratory Last Values WBC 7.5 K/mm3 (4.0-10.0) 12/16/18 05:52 RBC 3.40 M/mm3 (4.00-5.60) L 12/16/18 05:52 Hgb 11.3 GM/dL (11.7-16.9) L 12/16/18 05:52 Hct 34.9 % (35.4-49) L 12/16/18 05:52 MCV 102.6 fl (80-96) H 12/16/18 05:52 MCH 33.3 pg (25.7-33.7) 12/16/18 05:52 MCHC 32.5 g/dl (32.0-35.9) 12/16/18 05:52 RDW 15.6 % (11.9-15.9) 12/16/18 05:52 Plt Count 182 K/MM3 (134-434) 12/16/18 05:52 MPV 8.9 fl (7.5-11.1) 12/16/18 05:52 Absolute Neuts (auto) 6.4 K/mm3 (1.5-8.0) 12/15/18 17:10 Neutrophils % 82.9 % (42.8-82.8) H 12/15/18 17:10 Lymphocytes % 7.2 % (8-40) L D 12/15/18 17:10 Monocytes % 8.8 % (3.8-10.2) 12/15/18 17:10 Eosinophils % 0.8 % (0-4.5) 12/15/18 17:10 Basophils % 0.3 % (0-2.0) 12/15/18 17:10 Nucleated RBC % 0 % (0-0) 12/15/18 17:10 ESR 25 mm/hr (0-20) H 12/15/18 21:40 Retic Count 1.69 % (0.5-1.5) H 12/15/18 05:52 Anticoagulation Therapy No Result Required. 12/15/18 17:02 Puncture Site No Result Required. 12/15/18 17:02 ABG pH 7.33 (7.35-7.45) L 12/15/18 17:02 ABG pCO2 at Pt Temp 68.3 mmHg (35-45) H 12/15/18 17:02 ABG pO2 at Pt Temp 64.9 mmHg (80-105) L 12/15/18 17:02 ABG HCO3 35.0 mmol/L (22-27) H 12/15/18 17:02 ABG O2 Sat (Measured) 91.6 % (95-98) L 12/15/18 17:02 ABG O2 Content 14.4 % vol (15-22) L 12/15/18 17:02 ABG Base Excess 7.5 meq/l (-2-2) H 12/15/18 17:02 Dante Test No Result Required. 12/15/18 17:02 Carboxyhemoglobin 1.9 % (0-2) 12/15/18 16:51 Methemoglobin 0.5 % (0-2) 12/15/18 16:51 O2 Delivery Device No Result Required. 12/15/18 17:02 Oxygen Flow Rate No Result Required. 12/15/18 17:02 Vent Mode No Result Required. 12/15/18 17:02 Vent Rate No Result Required. 12/15/18 17:02 Mechanical Rate No Result Required. 12/15/18 17:02 Pressure Support Vent No Result Required. 12/15/18 17:02 Sodium 140 mmol/L (136-145) 12/16/18 05:52 Potassium 5.1 mmol/L (3.5-5.1) 12/16/18 05:52 Chloride 98 mmol/L (98-107) 12/16/18 05:52 Carbon Dioxide 41 mmol/L (21-32) H 12/16/18 05:52 Anion Gap 1 MMOL/L (8-16) L 12/16/18 05:52 BUN 32.5 mg/dL (7-18) H 12/16/18 05:52 Creatinine 1.1 mg/dL (0.55-1.3) 12/16/18 05:52 Est GFR (CKD-EPI)AfAm 77.32 12/16/18 05:52 Est GFR (CKD-EPI)NonAf 66.71 12/16/18 05:52 Random Glucose 156 mg/dL (74-106) H 12/16/18 05:52 Lactic Acid 2.0 mmol/L (0.4-2.0) 12/15/18 17:08 Calcium 8.3 mg/dL (8.5-10.1) L 12/16/18 05:52 Magnesium 3.0 mg/dL (1.8-2.4) H 12/16/18 05:52 Iron 38 ug/dL (50-175) L 12/15/18 21:35 TIBC 359 ug/dL (250-450) 12/15/18 21:35 Iron Saturation 10 % (17.5-39) L 12/15/18 21:35 Unsaturated IBC 321 ug/dL (200-275) H 12/15/18 21:35 Total Bilirubin 0.6 mg/dL (0.2-1) 12/16/18 05:52 AST 23 U/L (15-37) 12/16/18 05:52 ALT 48 U/L (13-61) 12/16/18 05:52 Alkaline Phosphatase 72 U/L (45-117) 12/16/18 05:52 Troponin I < 0.02 ng/ml (0.00-0.05) 12/15/18 17:10 C-Reactive Protein 1.3 MG/DL (0.00-0.3) H 12/15/18 21:35 B-Natriuretic Peptide 2865.3 pg/ml (5-125) H 12/15/18 17:10 Total Protein 6.4 g/dl (6.4-8.2) 12/16/18 05:52 Albumin 3.3 g/dl (3.4-5.0) L 12/16/18 05:52 Vitamin B12 405 pg/ml (193-986) 12/15/18 21:35 Serum Folate 19 ng/mL (3.1-17.5) H 12/15/18 21:35 Urine Color Yellow 12/15/18 20:15 Urine Appearance Clear 12/15/18 20:15 Urine pH 6.0 (5.0-8.0) 12/15/18 20:15 Ur Specific [place] 1.012 (1.010-1.035) 12/15/18 20:15 Urine Protein Negative (NEGATIVE) 12/15/18 20:15 Urine Glucose (UA) Negative (NEGATIVE) 12/15/18 20:15 Urine Ketones Negative (NEGATIVE) 12/15/18 20:15 Urine Blood Negative (NEGATIVE) 12/15/18 20:15 Urine Nitrite Negative (NEGATIVE) 12/15/18 20:15 Urine Bilirubin Negative (NEGATIVE) 12/15/18 20:15 Urine Urobilinogen 1.0 mg/dL (0.2-1.0) 12/15/18 20:15 Ur Leukocyte Esterase Negative (NEGATIVE) 12/15/18 20:15 Current Medications Albuterol Sulfate (Ventolin Hfa Inhaler -) 2 puff IH Q4H PRN PRN Reason: SHORT OF BREATH/WHEEZING Albuterol/Ipratropium (Duoneb -) 1 amp NEB RQID JONH Aspirin (Asa -) 81 mg PO DAILY [facility] Last Admin: 12/16/18 10:39 Dose: 81 mg Atorvastatin Calcium (Lipitor -) 40 mg PO HS [facility] Last Admin: 12/15/18 22:37 Dose: 40 mg Bumetanide (Bumex -) 1 mg PO BIDLASIX [facility] Ezetimibe (Zetia -) 10 mg PO DAILY [facility] Last Admin: 12/16/18 10:40 Dose: 10 mg Enoxaparin Sodium (Lovenox -) 40 mg SQ DAILY [facility] Last Admin: 12/16/18 10:40 Dose: 40 mg Eplerenone (Eplerenone) 25 mg PO BID [facility] Last Admin: 12/16/18 10:40 Dose: 25 mg Ampicillin Sodium/Sulbactam (Sodium 1.5 gm/ Sodium Chloride) 100 mls @ 200 mls/ hr IVPB Q6H-IV JONH Lamotrigine (Lamictal -) 25 mg PO DAILY [facility] Last Admin: 12/16/18 10:40 Dose: 25 mg Metoprolol Succinate (Toprol Xl -) 50 mg PO BID [facility] Last Admin: 12/16/18 10:39 Dose: 50 mg Ranolazine (Ranexa -) 1,000 mg PO BID [facility] Last Admin: 12/16/18 10:40 Dose: 1,000 mg Trazodone HCl (Desyrel -) 50 mg PO HS [facility] Last Admin: 12/15/18 22:37 Dose: 50 mg ASSESSMENT/PLAN: 73 yo M PMH COPD on 4L home O2, pulmonary HTN, RADHIKA, diastolic heart failure, HTN , HLD, CAD s/p RCA DAVID (2003,2004,2018) p/w altered mental status and cellulitis in LLE. Pt was being treated by PMD for cellulitis. Yesterday, pt had claimed suicidal ideation. In ED, pt had ABG showing chronic CO2 retention. Acute Respiratory Failure -possibly 2/2 COPD -ABG showing CO2 retention -pt currently saturating well on 5L O2, titrate down as tolerated -recommending CPAP use -c/w diuresis w/ Bumex po, IV formulation unavailable -cardiology is consulted, they recommend a cardiac MRI as outpt Acute Metabolic encephalopathy -possibly 2/2 hypercapnea -pt Alert and oriented x3 today -denied any thoughts to hurt himself or others. -psych is consulted L LE Cellulitis -XRay negative -pt completed augmentin x5d prior to admission. -start unasyn -Doppler neg for DVT -Doppler indicated B/L arterial pulse Iron def Anemia -no signs of bleeding -iron supplements RADHIKA -recommending CPAP DVT ppx: Lovenox Dispo: monitor on medicine floors Visit type - Emergency Visit Emergency Visit: No - New Patient This patient is new to me today: Yes Date on this admission: 12/16/18 - Critical Care Critical Care patient: No - Discharge Referral Referred to [facility] Med P.C.: No ATTENDING PHYSICIAN STATEMENT I saw and evaluated the patient. I reviewed the resident's note and discussed the case with the resident. I agree with the resident's findings and plan as documented. SUBJECTIVE: OBJECTIVE: ASSESSMENT AND PLAN:
[2018-12-16] MEDS: BUMETANIDE 1 MG TABLET PO SCH (17:28)
[2018-12-16] MEDS: AMPICILLIN NA/SULBACTAM NA 1.5 GM in SODIUM CHLORIDE 100 ML IVPB SCH ×2 (17:28→21:23)
--- NOTE | 2018-12-16 18:20 | PN ---
Teaching Attending Note Name of Resident: Sheron Richey ATTENDING PHYSICIAN STATEMENT I saw and evaluated the patient. I reviewed the resident's note and discussed the case with the resident. I agree with the resident's findings and plan as documented. SUBJECTIVE:states hes feeling fine. denies any symptoms. states his made him come. admits to requiring more home O2 the past few weeks but states he does that on occasion. states his lower extremity cellulitis is much improved. denies any CP, SOB, fever, chills, N/V/C/D, auditory or visual hallucinations. states he had no suicidal ideations and were just being "smart" with the staff yesterday when he stated he wanted to kill himself states dry weight is 202 OBJECTIVE: Last Vital Signs Temp Pulse Resp BP Pulse Ox 98.6 F 73 21 H 90/60 96 12/16/18 14:00 12/16/18 14:00 12/16/18 14:00 12/16/18 14:00 12/16/18 08:47 Intake & Output 12/13/18 12/14/18 12/15/18 12/16/18 23:59 23:59 23:59 23:59 Intake Total 125 450 Balance 125 450 Weight 209 lb 209 lb 5 oz General. mildly dyspnic during conversation CV S1 s2 RRR no murmur/rub/gallop Lungs crackles B/L bases no wheezing Abdomen soft NT/ND Extremities erythema L foot on hallux with skin tear at lateral side. and up on anterior conteh with fluid filled vessicles. area is not tender B/L LE 1+ pitting edema. cool extremities with weak DP pulses in both feet ASSESSMENT AND PLAN: 73yo M wtih PMHG RADHIKA on CPAP, HTN, COPD on 3L Home O2, CHF, CAD s/p stent with current treatment for LE cellulitis brought in by for altered mental status and claimed he had sucidial idealiations 1. acute toxic metabolic encephalopathy- liekly due to hypercapnia. appears more alert and oriented than yesterday however responded to some questioning inappropriately and tangentially. states he does not have any thoughts or plans to hurt himself or others. psych consulted 2. Acute hypoxixc hypercapnic respiratory failure- currently 92% on 4L NC. higher oxygen requirements than baseline. will cont with duiresis. check echo. will d/c steroids as not in COPD exacerbation at this time. cont inhlaers. titrate down oxygen requirement as tolerated. cardio consult. daily weights,. monitor electorlyes. 3. LLE cellulitis- completed augementin x5 days and started on doxy. will start on unasyn at this time. monitor for improvement. doppler neg for DVT. will check arterial dopplers as pulse can not be appreciated which may be from edema. F/u Cx 4. Iron def anemia- no signs of bleeding. no indication for transfusion. start iron supplements 5. RADHIKA on cpap-encourage cpap use 6. CAD s/p stent 7. DVT ppx- lovenox
[2018-12-16] MEDS: ALBUTEROL SO4 2.5/IPRATROPIUM 0.5 INH SOL 3 ML VIAL.NEB. NEB SCH (20:29)
[2018-12-16] MEDS: ATORVASTATIN CA 40 MG TABLET (FP) PO SCH (21:23)
[2018-12-16] MEDS: traZODone HCL 50 MG TABLET (FP) PO SCH (21:23)
[2018-12-17] MEDS: EPLERENONE 25 MG TABLET PO SCH ×3 (00:16→21:09)
[2018-12-17] MEDS: AMPICILLIN NA/SULBACTAM NA 1.5 GM in SODIUM CHLORIDE 100 ML IVPB SCH ×4 (02:00→21:01)
[2018-12-17] MEDS: BUMETANIDE 1 MG TABLET PO SCH (05:55)
[2018-12-17] MEDS: ALBUTEROL SO4 2.5/IPRATROPIUM 0.5 INH SOL 3 ML VIAL.NEB. NEB SCH ×4 (07:40→20:55)
[2018-12-17 08:16] LABS: BLOOD UREA NITROGEN 41.5 mg/dL (7-18); CALCIUM 8.6 mg/dL (8.5-10.1); CREATININE 1.1 mg/dL (0.55-1.3); PHOSPHOROUS 4.3 mg/dL (2.5-4.9); POTASSIUM 5.1 mmol/L (3.5-5.1)
[2018-12-17 08:19] LABS: HEMATOCRIT 33.1 % (35.4-49); MCH 33.7 pg (25.7-33.7); MCHC 33.2 g/dl (32.0-35.9); MEAN CELL VOLUME 101.4 fl (80-96); MEAN PLT VOLUME 9.1 fl (7.5-11.1); PLATELET COUNT 194 K/MM3 (134-434); RBC 3.26 M/mm3 (4.00-5.60); RDW 15.6 % (11.9-15.9); WHITE BLOOD COUNT 9.1 K/mm3 (4.0-10.0)
[2018-12-17] MEDS ORDERED: PT OWN MED DRAWER 7, Y5N ONE (09:18)
[2018-12-17] MEDS ORDERED: AMPICILLIN NA/SULBACTAM NA 1.5 GM VIAL ONE ×3 (09:24→20:31)
[2018-12-17] MEDS ORDERED: SODIUM CHLORIDE 100 ML IVPB ONE ×3 (09:24→20:32)
[2018-12-17] MEDS: FERROUS SO4 325 MG TABLET (FP) PO SCH ×2 (09:28→16:51)
[2018-12-17] MEDS: ASPIRIN 81 MG CHEWABLE TABLETS PO SCH (09:29)
[2018-12-17] MEDS: ENOXAPARIN NA (PORCINE) 40 MG/0.4 ML DISP.SYRIN SQ SCH (09:29)
[2018-12-17] MEDS: EZETIMIBE 10 MG TABLET (FP) PO SCH (09:29)
[2018-12-17] MEDS: RANOLAZINE E.R. 1,000 MG TABLET (FP) PO SCH ×2 (09:30→21:06)
[2018-12-17] MEDS: lamoTRIgine 25 MG TABLET PO SCH (09:30)
--- NOTE | 2018-12-17 12:13 | PN ---
Progress Note, Physician History of Present Illness: Sensorium improved, reports improved [place] and LE edema with diuresis, on bipap overnight. - Current Medication List Current Medications: Active Medications Albuterol Sulfate (Ventolin Hfa Inhaler -) 2 puff IH Q4H PRN PRN Reason: SHORT OF BREATH/WHEEZING Albuterol/Ipratropium (Duoneb -) 1 amp NEB RQID [facility] Last Admin: 12/17/18 11:35 Dose: 1 amp Aspirin (Asa -) 81 mg PO DAILY [facility] Last Admin: 12/17/18 09:29 Dose: 81 mg Atorvastatin Calcium (Lipitor -) 40 mg PO HS [facility] Last Admin: 12/16/18 21:23 Dose: 40 mg Bumetanide (Bumex -) 1 mg PO BIDLASIX [facility] Last Admin: 12/17/18 05:55 Dose: 1 mg Ezetimibe (Zetia -) 10 mg PO DAILY [facility] Last Admin: 12/17/18 09:29 Dose: 10 mg Enoxaparin Sodium (Lovenox -) 40 mg SQ DAILY [facility] Last Admin: 12/17/18 09:29 Dose: 40 mg Eplerenone (Eplerenone) 25 mg PO BID [facility] Last Admin: 12/17/18 09:30 Dose: 25 mg Ferrous Sulfate (Feosol -) 325 mg PO BIDWM [facility] Last Admin: 12/17/18 09:28 Dose: 325 mg Ampicillin Sodium/Sulbactam (Sodium 1.5 gm/ Sodium Chloride) 100 mls @ 200 mls/ hr IVPB Q6H-IV [facility] Last Admin: 12/17/18 09:28 Dose: 200 mls/hr Lamotrigine (Lamictal -) 25 mg PO DAILY [facility] Last Admin: 12/17/18 09:30 Dose: 25 mg Metoprolol Succinate (Toprol Xl -) 50 mg PO BID [facility] Last Admin: 12/17/18 09:29 Dose: 50 mg Ranolazine (Ranexa -) 1,000 mg PO BID [facility] Last Admin: 12/17/18 09:30 Dose: 1,000 mg Trazodone HCl (Desyrel -) 50 mg PO HS [facility] Last Admin: 12/16/18 21:23 Dose: 50 mg - Objective Vital Signs: Vital Signs Temperature 97.6 F 12/17/18 09:27 Pulse Rate 83 12/17/18 09:27 Respiratory Rate 24 H 12/17/18 09:27 Blood Pressure 105/47 L 12/17/18 09:27 O2 Sat by Pulse Oximetry (%) 94 L 12/17/18 09:15 Constitutional: Yes: No Distress, Calm Neck: Yes: Supple Cardiovascular: Yes: Regular Rate and Rhythm Respiratory: Yes: Regular, Diminished, On Nasal O2 Gastrointestinal: Yes: Normal Bowel Sounds, Soft, Abdomen, Obese Extremities: Yes: Erythema Edema: Yes Edema: LLE: 2+, RLE: 2+ Labs: CBC, BMP 12/17/18 05:37 12/17/18 05:37 Problem List - Problems (1) Coronary artery disease Code(s): I25.10 - ATHSCL HEART DISEASE OF [place] CORONARY ARTERY W/O ANG PCTRS Qualifiers: Coronary Disease-Associated Artery/Lesion type: [place] artery [place] vs. transplanted heart: [place] heart Associated angina: without angina Qualified Code(s): I25.10 - Atherosclerotic heart disease of [place] coronary artery without angina pectoris (2) S/P right coronary artery (RCA) stent placement Code(s): Z95.5 - PRESENCE OF CORONARY ANGIOPLASTY IMPLANT AND GRAFT (3) Hyperlipidemia Code(s): E78.5 - HYPERLIPIDEMIA, UNSPECIFIED Qualifiers: Hyperlipidemia type: pure hypercholesterolemia Qualified Code(s): E78.00 - Pure hypercholesterolemia, unspecified; E78.0 - Pure hypercholesterolemia (4) RADHIKA (obstructive sleep apnea) Code(s): G47.33 - OBSTRUCTIVE SLEEP APNEA (ADULT) (PEDIATRIC) (5) Pulmonary hypertension assoc with unclear multi-factorial mechanisms Code(s): I27.29 - OTHER SECONDARY PULMONARY HYPERTENSION (6) Toxic metabolic encephalopathy Code(s): G92 - TOXIC ENCEPHALOPATHY (7) Hypertensive cardiomyopathy Code(s): I11.9 - HYPERTENSIVE HEART DISEASE WITHOUT HEART FAILURE; I43 - CARDIOMYOPATHY IN DISEASES CLASSIFIED ELSEWHERE Qualifiers: Heart failure presence: with heart failure Qualified Code(s): I11.0 - Hypertensive heart disease with heart failure; I43 - Cardiomyopathy in diseases classified elsewhere (8) CHF exacerbation Code(s): I50.9 - HEART FAILURE, UNSPECIFIED Qualifiers: Heart failure type: diastolic Qualified Code(s): I50.33 - Acute on chronic diastolic (congestive) heart failure (9) COPD exacerbation Code(s): J44.1 - CHRONIC OBSTRUCTIVE PULMONARY DISEASE W (ACUTE) EXACERBATION (10) Hypertrophic cardiomyopathy Code(s): I42.2 - OTHER HYPERTROPHIC CARDIOMYOPATHY Assessment/Plan 11/12/2018 R&LHc Elevated right-sided pressures, moderate pulm HTN, normal PVRI , elevated PXWP, elevated LVEDP, decreased cardiac output, 1 vessel CAD with occluded prox RCA filling via bridging collaterals, hyperdynamic systolic function 11/08/2018 Echo: Mod cLVH with normal systolic function LVEF 60-65%, grade II diastolic dysfunction with elevated filling pressures, hyperdynamic mid cavity with obliteration suggestive of mid cavity obstruction, resting left ventricular outflow tract gradient 25 mmHg increasing to 33 mmHg with Valsalva, mild LAE, normal RV size and fxn, mild-mod MR, mild TR RVSP 33 mmHg 09/22/2017 Dobutamine Myoview: Moderate size inferior perfusion defect wth mild ischemia, normal LVEF 88% 12/16/2018 LE US: No DVT bilaterally, moderate atherosclerosis w/o stenosis bilaterally 1. Acute on chronic hypercapneic, hypoxemic respiratory failure with toxic metabolic encephelopathy and underlying 2. Acute on chronic diastolic heart failure, mod functional MS and mod pulm HTH 3. Acute exacerbation of COPD 4. OSAS not compliant with cpap 5. 1 vessel CAD h/o RCA stents 6. Hypertensive heart disease/HOCM of elderly 7. Hyperlipidemia 8. Sick euthyroid 9. LLE cellulitis P:1. Decrease IV diuresis (Bumex 1 bid) with monitor diuretic response, renal fxn and electrolytes 2. BD, steroids, O2 as needed, cpap nightly 3. Cardiac MRI as outpatient to evaluate HOCM of elderly 4. Continue ASA 81 qd, eplerenone 25 bid, Zetia 10 qd, Lipitor 40 qd, Toprol XL 50 bid, Ranexa 1000 bid 5. Wound care, empiric Unasyn course
--- NOTE | 2018-12-17 13:00 | PN ---
Teaching Attending Note Name of Resident: Sheron Richey ATTENDING PHYSICIAN STATEMENT I saw and evaluated the patient. I reviewed the resident's note and discussed the case with the resident. I agree with the resident's findings and plan as documented. SUBJECTIVE:states he feels great. does not understand why he is in the hospital. denies Cp, SOB, fever, chills, cough, N/V/C/D does not like using the cpap machine OBJECTIVE: Last Vital Signs Temp Pulse Resp BP Pulse Ox 97.6 F 83 24 H 105/47 L 94 L 12/17/18 09:27 12/17/18 09:27 12/17/18 09:27 12/17/18 09:27 12/17/18 09:15 Intake & Output 12/14/18 12/15/18 12/16/18 12/17/18 23:59 23:59 23:59 23:59 Intake Total 125 650 400 Balance 125 650 400 Weight 209 lb 209 lb 5 oz 210 lb General. mildly dyspnic during conversation CV S1 s2 RRR no murmur/rub/gallop Lungs diminished B/L bases no wheezing Abdomen soft NT/ND Extremities erythema L foot on hallux with skin tear at lateral side. and up on anterior conteh but appears less red today. vessicles appear more dry. 1+ pitting edema. feet are cool. ASSESSMENT AND PLAN: 73yo M wtih PMH RADHIKA on CPAP, HTN, COPD on 3L Home O2, CHF, CAD s/p stent with current treatment for LE cellulitis brought in by for altered mental status and claimed he had sucidial idealiations 1. acute toxic metabolic encephalopathy- likely due to hypercapnia. remains alert however slightly still confused. as per appears closer to baseline however thought remain tangential and not always responding to questions appropriately which she states he has been progressively doing over the past few months. no suicidal thoughts. psych consulted 2. Acute hypoxixc hypercapnic respiratory failure- due to acute on chronic diastolic CHF. on bumex. monitor I&O. monitor electrolyes. decrease oxygen requirement as tolerated. had recent echo with R&L heart cath earlier this year. will need cardiac MRI as outpatient to further evaluate HOCM. cardio on board 3. LLE cellulitis- failed outpatient therapy. clinically looks improved since yesterday. cont unasyn day 2. arterial u/s negative for acute occlusion. no DVT. Cx pending. 4. Iron def anemia- no signs of bleeding. no indication for transfusion. on iron supplements 5. RADHIKA on cpap-encourage cpap use. discussed in detail benefits of using CPAP machine although not always so apparent right after use. encouraged to use for naps first and once become more accustomed to it can use it for longer stretches overnight 6. CAD s/p stent 7. DVT ppx- lovenox 8. spoke with present at bedside. expressed concern for increasing difficulty to manage him at home. and requesting placement. agree patient would benefit from cardiac rehab. will have PT eval and d/w CM
--- NOTE | 2018-12-17 14:27 | PN ---
Physical Exam: SUBJECTIVE: Patient seen and examined at bedside. pt is not happy about using CPAP machine. pt still demonstrates dyspnea when speaking. states normally he can speak more comfortably, the also states that he is not at baseline for his mental status. OBJECTIVE: Vital Signs Period Temp Pulse Resp BP Sys/Govea Pulse Ox Last 24 Hr 97.5 F-98.3 F 65-83 20-24 105-128/47-83 90-94 GENERAL: The patient is awake, alert, and fully oriented, in no acute distress. LUNGS: Breath sounds equal, b/l crackles, no accessory muscle use. HEART: Regular rate and rhythm, S1, S2 without murmur, rub or gallop. ABDOMEN: Soft, nontender, nondistended, normoactive bowel sounds, no guarding EXTREMITIES:B/L LE cold, edematous. erythema in B/L LE improving PSYCH: tangential thinking. odd thoughts. SKIN: Warm, dry, normal turgor, no rashes or lesions noted Laboratory Results - last 24 hr Laboratory Last Values WBC 9.1 K/mm3 (4.0-10.0) 12/17/18 05:37 RBC 3.26 M/mm3 (4.00-5.60) L 12/17/18 05:37 Hgb 11.0 GM/dL (11.7-16.9) L 12/17/18 05:37 Hct 33.1 % (35.4-49) L 12/17/18 05:37 MCV 101.4 fl (80-96) H 12/17/18 05:37 MCH 33.7 pg (25.7-33.7) 12/17/18 05:37 MCHC 33.2 g/dl (32.0-35.9) 12/17/18 05:37 RDW 15.6 % (11.9-15.9) 12/17/18 05:37 Plt Count 194 K/MM3 (134-434) 12/17/18 05:37 MPV 9.1 fl (7.5-11.1) 12/17/18 05:37 Absolute Neuts (auto) 6.4 K/mm3 (1.5-8.0) 12/15/18 17:10 Neutrophils % 82.9 % (42.8-82.8) H 12/15/18 17:10 Lymphocytes % 7.2 % (8-40) L D 12/15/18 17:10 Monocytes % 8.8 % (3.8-10.2) 12/15/18 17:10 Eosinophils % 0.8 % (0-4.5) 12/15/18 17:10 Basophils % 0.3 % (0-2.0) 12/15/18 17:10 Nucleated RBC % 0 % (0-0) 12/15/18 17:10 ESR 25 mm/hr (0-20) H 12/15/18 21:40 Retic Count 1.69 % (0.5-1.5) H 12/15/18 05:52 Anticoagulation Therapy No Result Required. 12/15/18 17:02 Puncture Site No Result Required. 12/15/18 17:02 ABG pH 7.33 (7.35-7.45) L 12/15/18 17:02 ABG pCO2 at Pt Temp 68.3 mmHg (35-45) H 12/15/18 17:02 ABG pO2 at Pt Temp 64.9 mmHg (80-105) L 12/15/18 17:02 ABG HCO3 35.0 mmol/L (22-27) H 12/15/18 17:02 ABG O2 Sat (Measured) 91.6 % (95-98) L 12/15/18 17:02 ABG O2 Content 14.4 % vol (15-22) L 12/15/18 17:02 ABG Base Excess 7.5 meq/l (-2-2) H 12/15/18 17:02 Dante Test No Result Required. 12/15/18 17:02 Carboxyhemoglobin 1.9 % (0-2) 12/15/18 16:51 Methemoglobin 0.5 % (0-2) 12/15/18 16:51 O2 Delivery Device No Result Required. 12/15/18 17:02 Oxygen Flow Rate No Result Required. 12/15/18 17:02 Vent Mode No Result Required. 12/15/18 17:02 Vent Rate No Result Required. 12/15/18 17:02 Mechanical Rate No Result Required. 12/15/18 17:02 Pressure Support Vent No Result Required. 12/15/18 17:02 Sodium 139 mmol/L (136-145) 12/17/18 05:37 Potassium 5.1 mmol/L (3.5-5.1) 12/17/18 05:37 Chloride 98 mmol/L (98-107) 12/17/18 05:37 Carbon Dioxide 40 mmol/L (21-32) H 12/17/18 05:37 Anion Gap 1 MMOL/L (8-16) L 12/17/18 05:37 BUN 41.5 mg/dL (7-18) H 12/17/18 05:37 Creatinine 1.1 mg/dL (0.55-1.3) 12/17/18 05:37 Est GFR (CKD-EPI)AfAm 77.32 12/17/18 05:37 Est GFR (CKD-EPI)NonAf 66.71 12/17/18 05:37 Random Glucose 124 mg/dL (74-106) H 12/17/18 05:37 Hemoglobin A1c % 4.6 % (4.2-6.3) 12/17/18 07:00 Lactic Acid 2.0 mmol/L (0.4-2.0) 12/15/18 17:08 Calcium 8.6 mg/dL (8.5-10.1) 12/17/18 05:37 Phosphorus 4.3 mg/dL (2.5-4.9) 12/17/18 05:37 Magnesium 3.0 mg/dL (1.8-2.4) H 12/17/18 05:37 Iron 38 ug/dL (50-175) L 12/15/18 21:35 TIBC 359 ug/dL (250-450) 12/15/18 21:35 Iron Saturation 10 % (17.5-39) L 12/15/18 21:35 Unsaturated IBC 321 ug/dL (200-275) H 12/15/18 21:35 Transferrin 256 mg/dL (200-370) 12/15/18 05:52 Total Bilirubin 0.6 mg/dL (0.2-1) 12/16/18 05:52 AST 23 U/L (15-37) 12/16/18 05:52 ALT 48 U/L (13-61) 12/16/18 05:52 Alkaline Phosphatase 72 U/L (45-117) 12/16/18 05:52 Troponin I < 0.02 ng/ml (0.00-0.05) 12/15/18 17:10 C-Reactive Protein 1.3 MG/DL (0.00-0.3) H 12/15/18 21:35 B-Natriuretic Peptide 2865.3 pg/ml (5-125) H 12/15/18 17:10 Total Protein 6.4 g/dl (6.4-8.2) 12/16/18 05:52 Albumin 3.3 g/dl (3.4-5.0) L 12/16/18 05:52 Triglycerides 86 mg/dL (0-150) 12/17/18 05:37 Cholesterol 186 mg/dL (50-200) 12/17/18 05:37 Total LDL Cholesterol 127 mg/dL (5-100) H 12/17/18 05:37 HDL Cholesterol 46 mg/dL (40-60) 12/17/18 05:37 Vitamin B12 405 pg/ml (193-986) 12/15/18 21:35 Serum Folate 19 ng/mL (3.1-17.5) H 12/15/18 21:35 TSH 0.18 uIU/ml (0.358-3.74) L D 12/17/18 05:37 Free T4 0.73 ng/dl (0.76-1.16) L 12/17/18 05:37 Urine Color Yellow 12/15/18 20:15 Urine Appearance Clear 12/15/18 20:15 Urine pH 6.0 (5.0-8.0) 12/15/18 20:15 Ur Specific [place] 1.012 (1.010-1.035) 12/15/18 20:15 Urine Protein Negative (NEGATIVE) 12/15/18 20:15 Urine Glucose (UA) Negative (NEGATIVE) 12/15/18 20:15 Urine Ketones Negative (NEGATIVE) 12/15/18 20:15 Urine Blood Negative (NEGATIVE) 12/15/18 20:15 Urine Nitrite Negative (NEGATIVE) 12/15/18 20:15 Urine Bilirubin Negative (NEGATIVE) 12/15/18 20:15 Urine Urobilinogen 1.0 mg/dL (0.2-1.0) 12/15/18 20:15 Ur Leukocyte Esterase Negative (NEGATIVE) 12/15/18 20:15 Current Medications Albuterol Sulfate (Ventolin Hfa Inhaler -) 2 puff IH Q4H PRN PRN Reason: SHORT OF BREATH/WHEEZING Albuterol/Ipratropium (Duoneb -) 1 amp NEB RQID [facility] Last Admin: 12/17/18 11:35 Dose: 1 amp Aspirin (Asa -) 81 mg PO DAILY [facility] Last Admin: 12/17/18 09:29 Dose: 81 mg Atorvastatin Calcium (Lipitor -) 40 mg PO HS [facility] Last Admin: 12/16/18 21:23 Dose: 40 mg Ezetimibe (Zetia -) 10 mg PO DAILY [facility] Last Admin: 12/17/18 09:29 Dose: 10 mg Enoxaparin Sodium (Lovenox -) 40 mg SQ DAILY [facility] Last Admin: 12/17/18 09:29 Dose: 40 mg Eplerenone (Eplerenone) 25 mg PO BID [facility] Last Admin: 12/17/18 09:30 Dose: 25 mg Ferrous Sulfate (Feosol -) 325 mg PO BIDWM [facility] Last Admin: 12/17/18 09:28 Dose: 325 mg Furosemide (Lasix Injection -) 40 mg IVPUSH BID@0600,1400 [facility] Ampicillin Sodium/Sulbactam (Sodium 1.5 gm/ Sodium Chloride) 100 mls @ 200 mls/ hr IVPB Q6H-IV [facility] Last Admin: 12/17/18 09:28 Dose: 200 mls/hr Lamotrigine (Lamictal -) 25 mg PO DAILY [facility] Last Admin: 12/17/18 09:30 Dose: 25 mg Metoprolol Succinate (Toprol Xl -) 50 mg PO BID [facility] Last Admin: 12/17/18 09:29 Dose: 50 mg Ranolazine (Ranexa -) 1,000 mg PO BID [facility] Last Admin: 12/17/18 09:30 Dose: 1,000 mg Trazodone HCl (Desyrel -) 50 mg PO HS [facility] Last Admin: 12/16/18 21:23 Dose: 50 mg ASSESSMENT/PLAN: 73 yo M PMH COPD on 4L home O2, pulmonary HTN, RADHIKA, diastolic heart failure, HTN , HLD, CAD s/p RCA DAVID (2003,2005,2019) p/w altered mental status and cellulitis in LLE. Pt was being treated by PMD for cellulitis. Yesterday, pt had claimed suicidal ideation. In ED, pt had ABG showing chronic CO2 retention. Acute Respiratory Failure -possibly 2/2 acute on chronic diastolic CHF vs COPD -ABG showing CO2 retention -pt currently saturating well on 5L O2, titrate down as tolerated -recommending CPAP use. Explained that pt should try starting to use it during naps so he can adjust to machine and to use at night. -c/w diuresis w/ IV Lasix 40 BID, no IV Bumex available -cardiology is consulted, they recommend a cardiac MRI as outpt. -Pt had episodes of A.Fib on the tele monitor. Acute Metabolic encephalopathy -possibly 2/2 hypercapnea -recommended use of CPAP at night -pt denied any thoughts to hurt himself or others. -psych is consulted L LE Cellulitis -XRay negative -pt completed augmentin x5d prior to admission. -c/w unasyn (day 2) -erythema improving -Doppler neg for DVT -Doppler indicated B/L arterial pulse Iron def Anemia -no signs of bleeding -iron supplements RADHIKA -recommending CPAP DVT ppx: Lovenox Dispo: monitor on medicine floors until medically optimized. pt may benefit from cardiac rehab Visit type - Emergency Visit Emergency Visit: No - New Patient This patient is new to me today: No - Critical Care Critical Care patient: No - Discharge Referral Referred to [facility] Med [facility].C[facility] No ATTENDING PHYSICIAN STATEMENT I saw and evaluated the patient. I reviewed the resident's note and discussed the case with the resident. I agree with the resident's findings and plan as documented. SUBJECTIVE: OBJECTIVE: ASSESSMENT AND PLAN:
[2018-12-17] MEDS: FUROSEMIDE 40 MG/4 ML INJECTABLE VIAL IVPUSH SCH (14:55)
--- NOTE | 2018-12-17 16:13 | CON.PSY ---
Psychiatry Consult Chief Complaint: 73 Jack old male with significant Cardiac History, s/p cardiac cath about a week ago. apparantly injured his which dot infected. h/o Hypoxia as well. had been on Zoloft 25 mg . on Trazadone 50 mg po hs at this time. Staff report that he has been a bit confused and tends to nake bambastic sratements. reports that there is a change in his behaviour. patient however is agood historian but can be manipulative. Symptoms: reports: Expansive / Elevated Mood, Racing Thoughts - Previous Psychiatric Treatment Outpatient: More than 6 mos ago Inpatient: None - Previous Substance Abuse Treatment Outpatient: None Inpatient: None - Reason for Previous Treatment Reason for Previous Treatment: Major Depression - Current Medications Current Medications: Active Medications Albuterol Sulfate (Ventolin Hfa Inhaler -) 2 puff IH Q4H PRN PRN Reason: SHORT OF BREATH/WHEEZING Albuterol/Ipratropium (Duoneb -) 1 amp NEB RQID [facility] Last Admin: 12/17/18 15:32 Dose: 1 amp Aspirin (Asa -) 81 mg PO DAILY [facility] Last Admin: 12/17/18 09:29 Dose: 81 mg Atorvastatin Calcium (Lipitor -) 40 mg PO HS [facility] Last Admin: 12/16/18 21:23 Dose: 40 mg Ezetimibe (Zetia -) 10 mg PO DAILY [facility] Last Admin: 12/17/18 09:29 Dose: 10 mg Enoxaparin Sodium (Lovenox -) 40 mg SQ DAILY [facility] Last Admin: 12/17/18 09:29 Dose: 40 mg Eplerenone (Eplerenone) 25 mg PO BID [facility] Last Admin: 12/17/18 09:30 Dose: 25 mg Ferrous Sulfate (Feosol -) 325 mg PO BIDWM [facility] Last Admin: 12/17/18 09:28 Dose: 325 mg Furosemide (Lasix Injection -) 40 mg IVPUSH BID@0600,1400 [facility] Last Admin: 12/17/18 14:55 Dose: 40 mg Ampicillin Sodium/Sulbactam (Sodium 1.5 gm/ Sodium Chloride) 100 mls @ 200 mls/ hr IVPB Q6H-IV [facility] Last Admin: 12/17/18 14:55 Dose: 200 mls/hr Lamotrigine (Lamictal -) 25 mg PO DAILY [facility] Last Admin: 12/17/18 09:30 Dose: 25 mg Metoprolol Succinate (Toprol Xl -) 50 mg PO BID [facility] Last Admin: 12/17/18 09:29 Dose: 50 mg Ranolazine (Ranexa -) 1,000 mg PO BID [facility] Last Admin: 12/17/18 09:30 Dose: 1,000 mg Trazodone HCl (Desyrel -) 50 mg PO HS [facility] Last Admin: 12/16/18 21:23 Dose: 50 mg - Allergies Allergies: Allergies Allergy/AdvReac Type Severity Reaction Status Date / Time No Known Allergies Allergy Verified 12/15/18 16:12 - Current Living Status Usual Living Arrangement: With Spouse - Current Mental Status Evaluation Appearance: Well Groomed Attitude: Cooperative - Affect Affect: Expansive - Mood Mood: Irritable - Speech/Language Expressive: Coherent - Psychomotor Activity Psychomotor Activity: Hyperactive - Thought Process Thought Process: Intact - Thought Content Hallucinations: Absent Delusions: Absent - Self Perception Self Perception: No Impairment - Cognition Attention: Alert Orientation: Time Memory, Immediate Recall: Intact Memory, Short Term: 3/3 Memory, Remote with Promptin/3 - Concentration Serial Sevens Intact: Yes Simple Calculations Intact: Yes - Abstraction Proverb Interpretation: Intact Judgement: Minimally Impaired - Insight Insight: Intact - Impulse Control Impulse Control: Minimally Impaired - Suicidal Ideation Suicidal Ideation: No - Homicidal Ideation Homicidal Ideation: No Assessment/Plan 1) d/c Trazadone. 2) Zyprexa 2.5 mg po hs. 3) suggest Neuro Consult.
[2018-12-17] MEDS: OLANZapine 2.5 MG TABLET PO SCH (21:05)
[2018-12-17] MEDS: ATORVASTATIN CA 40 MG TABLET (FP) PO SCH (21:06)
[2018-12-18] MEDS ORDERED: AMPICILLIN NA/SULBACTAM NA 1.5 GM VIAL ONE ×4 (02:38→20:45)
[2018-12-18] MEDS ORDERED: SODIUM CHLORIDE 100 ML IVPB ONE ×4 (02:39→20:45)
[2018-12-18] MEDS: AMPICILLIN NA/SULBACTAM NA 1.5 GM in SODIUM CHLORIDE 100 ML IVPB SCH ×4 (02:43→21:04)
[2018-12-18] MEDS: FUROSEMIDE 40 MG/4 ML INJECTABLE VIAL IVPUSH SCH (06:07)
[2018-12-18 07:02] LABS: BASO % 0.2 % (0-2.0); EOS % 0.3 % (0-4.5); HEMATOCRIT 34.9 % (35.4-49); HEMOGLOBIN 11.5 GM/dL (11.7-16.9); LYMPH % 5.9 % (8-40); MCH 33.3 pg (25.7-33.7); MCHC 32.8 g/dl (32.0-35.9); MEAN CELL VOLUME 101.6 fl (80-96); MONO % 5.8 % (3.8-10.2); NEUT % 87.8 % (42.8-82.8); PLATELET COUNT 204 K/MM3 (134-434); RBC 3.44 M/mm3 (4.00-5.60); RDW 15.7 % (11.9-15.9); WHITE BLOOD COUNT 9.4 K/mm3 (4.0-10.0)
[2018-12-18 07:16] LABS: ALBUMIN 3.5 g/dl (3.4-5.0); BILIRUBIN,TOTAL 0.5 mg/dL (0.2-1); BLOOD UREA NITROGEN 49.8 mg/dL (7-18); CREATININE 1.4 mg/dL (0.55-1.3); MAGNESIUM 2.6 mg/dL (1.8-2.4); PHOSPHOROUS 4.8 mg/dL (2.5-4.9); POTASSIUM 4.9 mmol/L (3.5-5.1); TOT PROT 6.8 g/dl (6.4-8.2)
[2018-12-18] MEDS: ALBUTEROL SO4 2.5/IPRATROPIUM 0.5 INH SOL 3 ML VIAL.NEB. NEB SCH ×4 (08:32→21:30)
[2018-12-18] MEDS: ASPIRIN 81 MG CHEWABLE TABLETS PO SCH (09:34)
[2018-12-18] MEDS: FERROUS SO4 325 MG TABLET (FP) PO SCH ×2 (09:34→16:40)
[2018-12-18] MEDS: EPLERENONE 25 MG TABLET PO SCH ×2 (09:34→21:08)
[2018-12-18] MEDS: lamoTRIgine 25 MG TABLET PO SCH (09:35)
[2018-12-18] MEDS: RANOLAZINE E.R. 1,000 MG TABLET (FP) PO SCH ×2 (09:35→21:08)
[2018-12-18] MEDS: ENOXAPARIN NA (PORCINE) 40 MG/0.4 ML DISP.SYRIN SQ SCH (09:36)
[2018-12-18] MEDS: EZETIMIBE 10 MG TABLET (FP) PO SCH (09:37)
--- NOTE | 2018-12-18 11:46 | CONSULT ---
Consult - text type - Consultation Consultation Note: NEUROLOGY HISTORY OF PRESENT ILLNESS: 73yo male with COPD, newly diagnosed pulmonary HTN, sleep apnea, NYHA class II CHF, HTN, HLD, CAD s/p RCA stent who presented with weakness that has slowly progressed over 2 weeks prior to admission. His , who was at bedside in the ER, reported that since the weather has gotten hotter, he has been worsening. He has become increasingly somnolent and has been sleeping up to 18 hours/day. Day prior to admission, he was sitting at a table at home and got up then fell on the floor. He denied LOC but his reported he did hit his head. She did not witness the fall. He reports recently having a runny nose but no fever, chills, sore throat, or sinus congestion. He denied shortness of breath, cough, and wheezing. He reported chronic pedal edema which has gotten worse in the last week, especially left foot that was injured. The patient also had a fall 1 week ago prior to admission that resulted in an abrasion on his left conteh and foot. The leg has since developed vesicles, and his foot has a weeping wound and is more swollen than baseline. He also reported increased pedal edema and mild tenderness of his foot. His reported he was just diagnosed with pulmonary HTN and has not picked up new script yet. She also said he does not allow her to go to doctor's appointments as well. She is concerned for poor medication compliance. He is supposed to use CPAP at night but does she says he does not use it. During my evaluation, facemask in place and is awake but fatigued appearing. Would benefit from optimization of RADHIKA as this can precipitate his lethargy which likely multifactoral and includes ongoing medical comorbidities described above. Recent Travel: no PAST MEDICAL HISTORY: 1. COPD 2. pulm HTN 3. NYHA class II CHF (no recent echo on file) 4. HTN 5. HLD 6. CAD s/p RCA stent PAST SURGICAL HISTORY: knee Social History: Smoking: quit 25 years ago, 1ppd prior Alcohol: socially Drugs: no lives at home with - she reports he does not allow her to go to dr santos and there are concerns for medication compliance as well Family History: father passed from [place] at 76 Allergies No Known Allergies Allergy (Verified 12/15/18 16:12) Ambulatory Orders Aspirin [ASA] 81 mg PO DAILY 01/09/12 Sertraline HCl [Zoloft] 200 mg PO DAILY 01/09/12 Albuterol Sulfate Inhaler - [Ventolin HFA Inhaler -] 1 - 2 puff IH PRN PRN MDD Q4-6 hours 12/15/18 Atorvastatin Ca [Lipitor] 40 mg PO HS 12/15/18 Bumetanide 2 mg PO BID 12/15/18 Cholecalciferol (Vitamin D3) [Vitamin D3] 1,000 mg PO DAILY 12/15/18 Eplerenone 25 mg PO BID 12/15/18 Ezetimibe 10 mg PO DAILY 12/15/18 Lamotrigine [Lamictal] 25 mg PO DAILY 12/15/18 Metoprolol Succinate [Toprol Xl] 50 mg PO BID 12/15/18 Ranolazine [Ranexa] 1,000 mg PO BID 12/15/18 Umeclidinium Marlette [Incruse Ellipta] 1 puff IH DAILY 12/15/18 Fluticasone/Vilanterol [Breo Ellipta 200-25 Mcg INH] 1 puff IN DAILY 12/16/18 Gabapentin 100 mg PO DAILY 12/16/18 REVIEW OF SYSTEMS CONSTITUTIONAL: Present: generalized weakness Absent: fever, chills, diaphoresis, malaise, loss of appetite, weight change HEENT: Present: rhinorrhea Absent: nasal congestion, throat pain, ear pain CARDIOVASCULAR: Present: peripheral edema Absent: chest pain RESPIRATORY: Absent: cough, shortness of breath, dyspnea with exertion, orthopnea, wheezing GASTROINTESTINAL: Absent: abdominal pain, nausea, vomiting, diarrhea GENITOURINARY: Absent: dysuria MUSCULOSKELETAL: Absent: myalgia SKIN: Present: abrasion, blister Absent: rash, itching, pallor HEMATOLOGIC/IMMUNOLOGIC: Absent: easy bleeding, easy bruising, frequent infections ENDOCRINE: Absent: unexplained weight gain, unexplained weight loss, heat intolerance, cold intolerance NEUROLOGIC: Absent: headache, dizziness PSYCHIATRIC: Absent: anxiety, depression, suicidal or homicidal ideation, hallucinations. ROS limited PHYSICAL EXAMINATION Vital Signs Temperature 98.2 F 12/18/18 05:50 Pulse Rate 63 12/18/18 05:50 Respiratory Rate 21 H 12/18/18 08:06 Blood Pressure 107/52 L 12/18/18 05:50 O2 Sat by Pulse Oximetry (%) 90 L 12/17/18 20:50 GENERAL: Awake, alert, and fully oriented, in no acute distress. Pt mildly altered. HEAD: Normal with no signs of trauma. EYES: Pupils equal, round and reactive to light, extraocular movements intact, sclera anicteric, conjunctiva clear. No lid lag. EARS, NOSE, THROAT: Ears normal, nares patent. Moist mucous membranes. NECK: Normal range of motion, supple without lymphadenopathy, JVD, or masses. LUNGS: Crackles heard bilaterally, no wheezing or accessory muscle use, unable to completely inhale HEART: Regular rate and rhythm, systolic murmur ABDOMEN: Soft, nontender, not distended, normoactive bowel sounds, no guarding, no rebound, no masses. MUSCULOSKELETAL: Normal range of motion at all joints. No bony deformities or tenderness. UPPER EXTREMITIES: 2+ pulses, warm, well-perfused. No cyanosis. No clubbing. No peripheral edema. LOWER EXTREMITIES: Dorsalis pulses not appreciated, feet are cold, +1 pitting edema in both feet with left foot sightly more edematous, left almond cutting machine tender to touch. Left dorsal surface small abrasion near base of toes. Lower third of left conteh erythematous with multiple vesicles. NEUROLOGICAL: Cranial nerves II-XII intact. Normal speech. PSYCHIATRIC: Cooperative. Good eye contact. Appropriate mood and affect. SKIN: Warm, dry, normal turgor, no rashes or lesions noted other than listed in LE, normal capillary refill. CBCD WBC 9.4 K/mm3 (4.0-10.0) 12/18/18 05:38 RBC 3.44 M/mm3 (4.00-5.60) L 12/18/18 05:38 Hgb 11.5 GM/dL (11.7-16.9) L 12/18/18 05:38 Hct 34.9 % (35.4-49) L 12/18/18 05:38 MCV 101.6 fl (80-96) H 12/18/18 05:38 MCHC 32.8 g/dl (32.0-35.9) 12/18/18 05:38 RDW 15.7 % (11.9-15.9) 12/18/18 05:38 Plt Count 204 K/MM3 (134-434) 12/18/18 05:38 MPV 9.0 fl (7.5-11.1) 12/18/18 05:38 CMP Sodium 141 mmol/L (136-145) 12/18/18 05:38 Potassium 4.9 mmol/L (3.5-5.1) 12/18/18 05:38 Chloride 100 mmol/L (98-107) 12/18/18 05:38 Carbon Dioxide 37 mmol/L (21-32) H 12/18/18 05:38 Anion Gap 5 MMOL/L (8-16) L 12/18/18 05:38 BUN 49.8 mg/dL (7-18) H 12/18/18 05:38 Creatinine 1.4 mg/dL (0.55-1.3) H 12/18/18 05:38 Random Glucose 109 mg/dL (74-106) H 12/18/18 05:38 Calcium 9.0 mg/dL (8.5-10.1) 12/18/18 05:38 Total Bilirubin 0.5 mg/dL (0.2-1) 12/18/18 05:38 AST 23 U/L (15-37) 12/18/18 05:38 ALT 53 U/L (13-61) 12/18/18 05:38 Alkaline Phosphatase 72 U/L (45-117) 12/18/18 05:38 Total Protein 6.8 g/dl (6.4-8.2) 12/18/18 05:38 Albumin 3.5 g/dl (3.4-5.0) 12/18/18 05:38 CARDIAC ENZYMES Troponin I < 0.02 ng/ml (0.00-0.05) 12/15/18 17:10 ASSESSMENT/PLAN: 73yo male with COPD, newly diagnosed pulmonary HTN, sleep apnea, NYHA class II CHF, HTN, HLD, CAD s/p RCA stent who presented with weakness that has slowly progressed over 2 weeks prior to admission. His , who was at bedside in the ER, reported that since the weather has gotten hotter, he has been worsening. He has become increasingly somnolent and has been sleeping up to 18 hours/day. Day prior to admission, he was sitting at a table at home and got up then fell on the floor. He denied LOC but his reported he did hit his head. She did not witness the fall. He reports recently having a runny nose but no fever, chills, sore throat, or sinus congestion. He denied shortness of breath, cough, and wheezing. He reported chronic pedal edema which has gotten worse in the last week, especially left foot that was injured. The patient also had a fall 1 week ago prior to admission that resulted in an abrasion on his left conteh and foot. The leg has since developed vesicles, and his foot has a weeping wound and is more swollen than baseline. He also reported increased pedal edema and mild tenderness of his foot. His reported he was just diagnosed with pulmonary HTN and has not picked up new script yet. She also said he does not allow her to go to doctor's appointments as well. She is concerned for poor medication compliance. He is supposed to use CPAP at night but does she says he does not use it. During my evaluation, facemask in place and is awake but fatigued appearing. Would benefit from optimization of RADHIKA as this can precipitate his lethargy which likely multifactoral and includes ongoing medical comorbidities described above. Will order CT head as no imaging on file. Continue treatment for pulmonary etiologies , cardiology follow up. Increased hydration, physical therapy as tolerated. Monitor bp, maintain normotensive range.
--- NOTE | 2018-12-18 13:07 | PN ---
Progress Note (short form) - Note Progress Note: reported by RN that patient fell. got out of bed and felt lightheaded and then slipped reaching for the table currently pt state he has R hip pain. is upset he is unable to get out of bed to ambulate. denies CP, SOB, fever, chills, N/V/C/D Current Medications Generic Name Dose Route Start Last Admin Trade Name Freq PRN Reason Stop Dose Admin Albuterol Sulfate 2 puff 12/15/18 20:10 Ventolin Hfa Inhaler - IH Q4H PRN SHORT OF BREATH/WHEEZING Albuterol/Ipratropium 1 amp 12/16/18 20:30 12/18/18 11:32 Duoneb - NEB 1 amp RQID JONH Administration Aspirin 81 mg 12/16/18 10:00 12/18/18 09:34 Asa - PO 81 mg DAILY JONH Administration Atorvastatin Calcium 40 mg 12/15/18 22:00 12/17/18 21:06 Lipitor - PO 40 mg HS JONH Administration Ezetimibe 10 mg 12/16/18 10:00 12/18/18 09:37 Zetia - PO 10 mg DAILY JONH Administration Enoxaparin Sodium 40 mg 12/15/18 20:15 12/18/18 09:36 Lovenox - SQ 40 mg DAILY JONH Administration Eplerenone 25 mg 12/15/18 22:00 12/18/18 09:34 Eplerenone PO 25 mg BID JONH Administration Ferrous Sulfate 325 mg 12/17/18 08:00 12/18/18 09:34 Feosol - PO 325 mg BIDWM JONH Administration Furosemide 40 mg 12/17/18 14:00 12/18/18 06:07 Lasix Injection - IVPUSH 40 mg BID@0600,1400 JONH Administration Ampicillin Sodium/Sulbactam 100 mls @ 200 mls/hr 12/16/18 15:00 12/18/18 09: 35 Sodium 1.5 gm/ Sodium Chloride IVPB 200 mls/hr Q6H-IV JONH Administration Lamotrigine 25 mg 12/16/18 10:00 12/18/18 09:35 Lamictal - PO 25 mg DAILY JONH Administration Metoprolol Succinate 50 mg 12/15/18 22:00 12/18/18 09:36 Toprol Xl - PO 50 mg BID JONH Administration Olanzapine 2.5 mg 12/17/18 22:00 12/17/18 21:05 Zyprexa - PO 2.5 mg HS JONH Administration Ranolazine 1,000 mg 12/15/18 22:00 12/18/18 09:35 Ranexa - PO 1,000 mg BID JONH Administration Last Vital Signs Temp Pulse Resp BP Pulse Ox 98.1 F 73 20 104/49 L 90 L 12/18/18 11:00 12/18/18 11:00 12/18/18 11:00 12/18/18 11:00 12/17/18 20:50 Intake & Output 12/15/18 12/16/18 12/17/18 12/18/18 23:59 23:59 23:59 23:59 Intake Total 528 840 0387 340 Balance 121 893 7472 340 Weight 209 lb 209 lb 5 oz 210 lb General. mildly dyspnic during conversation CV S1 s2 RRR no murmur/rub/gallop Lungs diminished B/L bases no wheezing Abdomen soft NT/ND Extremities wont allow me to assess the hip. pt laying on R side in the bed CBCD WBC 9.4 K/mm3 (4.0-10.0) 12/18/18 05:38 RBC 3.44 M/mm3 (4.00-5.60) L 12/18/18 05:38 Hgb 11.5 GM/dL (11.7-16.9) L 12/18/18 05:38 Hct 34.9 % (35.4-49) L 12/18/18 05:38 MCV 101.6 fl (80-96) H 12/18/18 05:38 MCHC 32.8 g/dl (32.0-35.9) 12/18/18 05:38 RDW 15.7 % (11.9-15.9) 12/18/18 05:38 Plt Count 204 K/MM3 (134-434) 12/18/18 05:38 MPV 9.0 fl (7.5-11.1) 12/18/18 05:38 CMP Sodium 141 mmol/L (136-145) 12/18/18 05:38 Potassium 4.9 mmol/L (3.5-5.1) 12/18/18 05:38 Chloride 100 mmol/L (98-107) 12/18/18 05:38 Carbon Dioxide 37 mmol/L (21-32) H 12/18/18 05:38 Anion Gap 5 MMOL/L (8-16) L 12/18/18 05:38 BUN 49.8 mg/dL (7-18) H 12/18/18 05:38 Creatinine 1.4 mg/dL (0.55-1.3) H 12/18/18 05:38 Calcium 9.0 mg/dL (8.5-10.1) 12/18/18 05:38 Total Bilirubin 0.5 mg/dL (0.2-1) 12/18/18 05:38 AST 23 U/L (15-37) 12/18/18 05:38 ALT 53 U/L (13-61) 12/18/18 05:38 Alkaline Phosphatase 72 U/L (45-117) 12/18/18 05:38 Total Protein 6.8 g/dl (6.4-8.2) 12/18/18 05:38 Albumin 3.5 g/dl (3.4-5.0) 12/18/18 05:38 Microbiology 12/15/18 17:04 Blood Culture - Preliminary Blood - Peripheral Venous NO GROWTH OBTAINED AFTER 48 HOURS, INCUBATION TO CONTINUE FOR 3 DAYS. 12/15/18 17:04 Blood Culture - Preliminary Blood - Peripheral Venous NO GROWTH OBTAINED AFTER 48 HOURS, INCUBATION TO CONTINUE FOR 3 DAYS. ASSESSMENT AND PLAN: 73yo M [facility] PMH RADHIKA on CPAP, HTN, COPD on 3L Home O2, CHF, CAD s/p stent with current treatment for LE cellulitis brought in by for altered mental status and claimed he had sucidial idealiations 1. acute toxic metabolic encephalopathy- likely due to hypercapnia. remains alert however slightly still confused. will check ABG to assess for CO2. seen by neuro and psych. Head CT ordered. started on zyprexa. as per appears better today then he has for a week now but not at baseline 2. Acute hypoxixc hypercapnic respiratory failure- due to acute on chronic diastolic CHF. still remains volume overloaded however increase in renal function. hold lasix. repeat labs. will restart bumex tomorrow. monitor I&O. monitor electrolyes. decrease oxygen requirement as tolerated. had recent echo with R&L heart cath earlier this year. will need cardiac MRI as outpatient to further evaluate HOCM. cardio on board. would benefit from pulm-cardio rehab 3. LLE cellulitis- failed outpatient therapy. cont unasyn day 3. arterial u/s negative for acute occlusion. no DVT. Cx negative 4. Fall- could be mechanical or in setting of confusion. Head CT was already ordered. will get hip XR as pt wont allow exam at this time. check Co2 4. Iron def anemia- no signs of bleeding. no indication for transfusion. on iron supplements 5. RADHIKA on cpap-encourage cpap use. 6. CAD s/p stent 7. DVT ppx- lovenox 8. spoke with present at bedside. Ambulated only 40Ft. believe patient would benefit from cardio-pulm rehab and strength endurance. in agreement for placement. DESTINY to be sent Visit type - Emergency Visit Emergency Visit: Yes ED Registration Date: 12/15/18 Care time: The patient presented to the Emergency Department on the above date and was hospitalized for further evaluation of their emergent condition. - New Patient This patient is new to me today: No - Critical Care Critical Care patient: No - Discharge Referral Referred to [facility] Med P.C.: No
--- NOTE | 2018-12-18 14:01 | PN ---
Progress Note, Physician History of Present Illness: Sensorium improved, orthopneic while getting left hip xray, placed back on bipap , diuresis resumed. - Current Medication List Current Medications: Active Medications Albuterol Sulfate (Ventolin Hfa Inhaler -) 2 puff IH Q4H PRN PRN Reason: SHORT OF BREATH/WHEEZING Albuterol/Ipratropium (Duoneb -) 1 amp NEB RQID [facility] Last Admin: 12/18/18 11:32 Dose: 1 amp Aspirin (Asa -) 81 mg PO DAILY [facility] Last Admin: 12/18/18 09:34 Dose: 81 mg Atorvastatin Calcium (Lipitor -) 40 mg PO HS [facility] Last Admin: 12/17/18 21:06 Dose: 40 mg Ezetimibe (Zetia -) 10 mg PO DAILY [facility] Last Admin: 12/18/18 09:37 Dose: 10 mg Enoxaparin Sodium (Lovenox -) 40 mg SQ DAILY [facility] Last Admin: 12/18/18 09:36 Dose: 40 mg Eplerenone (Eplerenone) 25 mg PO BID [facility] Last Admin: 12/18/18 09:34 Dose: 25 mg Ferrous Sulfate (Feosol -) 325 mg PO BIDWM [facility] Last Admin: 12/18/18 09:34 Dose: 325 mg Ampicillin Sodium/Sulbactam (Sodium 1.5 gm/ Sodium Chloride) 100 mls @ 200 mls/ hr IVPB Q6H-IV [facility] Last Admin: 12/18/18 09:35 Dose: 200 mls/hr Lamotrigine (Lamictal -) 25 mg PO DAILY [facility] Last Admin: 12/18/18 09:35 Dose: 25 mg Metoprolol Succinate (Toprol Xl -) 50 mg PO BID [facility] Last Admin: 12/18/18 09:36 Dose: 50 mg Olanzapine (Zyprexa -) 2.5 mg PO HS [facility] Last Admin: 12/17/18 21:05 Dose: 2.5 mg Ranolazine (Ranexa -) 1,000 mg PO BID [facility] Last Admin: 12/18/18 09:35 Dose: 1,000 mg - Objective Vital Signs: Vital Signs Temperature 98.1 F 12/18/18 11:00 Pulse Rate 73 12/18/18 11:00 Respiratory Rate 20 12/18/18 11:00 Blood Pressure 104/49 L 12/18/18 11:00 O2 Sat by Pulse Oximetry (%) 90 L 12/17/18 20:50 Constitutional: Yes: No Distress, Calm Neck: Yes: Supple Cardiovascular: Yes: Regular Rate and Rhythm Respiratory: Yes: Regular, Diminished, On BiPap Gastrointestinal: Yes: Normal Bowel Sounds, Soft, Abdomen, Obese Edema: Yes Edema: LLE: 1+, RLE: 1+ Labs: CBC, BMP 12/18/18 05:38 12/18/18 05:38 - ....Imaging Cat Scan: Report Reviewed (HCT Negatove) Problem List - Problems (1) Coronary artery disease Code(s): I25.10 - ATHSCL HEART DISEASE OF [place] CORONARY ARTERY W/O ANG PCTRS Qualifiers: Coronary Disease-Associated Artery/Lesion type: [place] artery [place] vs. transplanted heart: [place] heart Associated angina: without angina Qualified Code(s): I25.10 - Atherosclerotic heart disease of [place] coronary artery without angina pectoris (2) S/P right coronary artery (RCA) stent placement Code(s): Z95.5 - PRESENCE OF CORONARY ANGIOPLASTY IMPLANT AND GRAFT (3) Hyperlipidemia Code(s): E78.5 - HYPERLIPIDEMIA, UNSPECIFIED Qualifiers: Hyperlipidemia type: pure hypercholesterolemia Qualified Code(s): E78.00 - Pure hypercholesterolemia, unspecified; E78.0 - Pure hypercholesterolemia (4) RADHIKA (obstructive sleep apnea) Code(s): G47.33 - OBSTRUCTIVE SLEEP APNEA (ADULT) (PEDIATRIC) (5) Pulmonary hypertension assoc with unclear multi-factorial mechanisms Code(s): I27.29 - OTHER SECONDARY PULMONARY HYPERTENSION (6) Toxic metabolic encephalopathy Code(s): G92 - TOXIC ENCEPHALOPATHY (7) Hypertensive cardiomyopathy Code(s): I11.9 - HYPERTENSIVE HEART DISEASE WITHOUT HEART FAILURE; I43 - CARDIOMYOPATHY IN DISEASES CLASSIFIED ELSEWHERE Qualifiers: Heart failure presence: with heart failure Qualified Code(s): I11.0 - Hypertensive heart disease with heart failure; I43 - Cardiomyopathy in diseases classified elsewhere (8) CHF exacerbation Code(s): I50.9 - HEART FAILURE, UNSPECIFIED Qualifiers: Heart failure type: diastolic Qualified Code(s): I50.33 - Acute on chronic diastolic (congestive) heart failure (9) COPD exacerbation Code(s): J44.1 - CHRONIC OBSTRUCTIVE PULMONARY DISEASE W (ACUTE) EXACERBATION (10) Hypertrophic cardiomyopathy Code(s): I42.2 - OTHER HYPERTROPHIC CARDIOMYOPATHY Assessment/Plan 11/12/2018 R&LHc Elevated right-sided pressures, moderate pulm HTN, normal PVRI , elevated PCWP, elevated LVEDP, decreased cardiac output, 1 vessel CAD with occluded prox RCA filling via bridging collaterals, hyperdynamic systolic function 11/08/2018 Echo: Mod cLVH with normal systolic function LVEF 60-65%, grade II diastolic dysfunction with elevated filling pressures, hyperdynamic mid cavity with obliteration suggestive of mid cavity obstruction, resting left ventricular outflow tract gradient 25 mmHg increasing to 33 mmHg with Valsalva, mild LAE, normal RV size and fxn, mild-mod MR, mild TR RVSP 33 mmHg 09/22/2017 Dobutamine Myoview: Moderate size inferior perfusion defect wth mild ischemia, normal LVEF 88% 12/16/2018 LE US: No DVT bilaterally, moderate atherosclerosis w/o stenosis bilaterally 12/18/2018 HCT: No acute changes 1. Acute on chronic hypercapneic, hypoxemic respiratory failure with toxic metabolic encephelopathy and underlying 2. Acute on chronic diastolic heart failure, mod functional MS and mod pulm HTH 3. Acute exacerbation of COPD 4. OSAS not compliant with cpap 5. 1 vessel CAD h/o RCA stents 6. Hypertensive heart disease/HOCM of elderly 7. Hyperlipidemia 8. Sick euthyroid 9. LLE cellulitis 10. CANDY P:1. Resume IV diuresis with monitor diuretic response, renal fxn and electrolytes 2. BD, steroids, O2 as needed, cpap nightly 3. Cardiac MRI as outpatient to evaluate HOCM of elderly 4. Continue ASA 81 qd, eplerenone 25 bid, Zetia 10 qd, Lipitor 40 qd, Toprol XL 50 bid, Ranexa 1000 bid 5. Wound care, empiric Unasyn course 6. PT->SNF
--- NOTE | 2018-12-18 14:46 | RAPID ---
Physical Examination Vital Signs: Vital Signs Temperature 98.1 F 12/18/18 11:00 Pulse Rate 73 12/18/18 11:00 Respiratory Rate 20 12/18/18 11:00 Blood Pressure 104/49 L 12/18/18 11:00 O2 Sat by Pulse Oximetry (%) 90 L 12/17/18 20:50 Findings/Remarks: Rapid response called for SOB while patient was in radiology to get a left hip X ray done. Symptoms began after he was laid flat, and subsided once he was placed upright. Spoke with patient and after a few minutes of rest he reported feeling better. At that point, we decided to transport the patient back to his room. He was told to remain in an upright position. O2 89% General: Pale, no acute distress Lungs: No accessory muscle use, some crackles at base B/L Plan: - Reschedule X Ray - Keep patient upright in bed with O2 - Will discuss with primary care team. Labs: CBC, BMP 12/18/18 05:38 12/18/18 05:38
[2018-12-18 14:56] LABS: ARTERIAL BLD GAS O2 SATURATION 82.9 % (95-98); ARTERIAL BLOOD GAS PCO2 69.8 mmHg (35-45); ARTERIAL BLOOD GAS PO2 50.5 mmHg (80-105); ARTERIAL BLOOD GAS pH 7.34 (7.35-7.45)
[2018-12-18 14:58] LABS: ALLENS TEST POSITIVE
[2018-12-18] MEDS ORDERED: FUROSEMIDE 40 MG/4 ML INJECTABLE VIAL IVPUSH ONE (15:46)
[2018-12-18] MEDS: ATORVASTATIN CA 40 MG TABLET (FP) PO SCH (21:08)
[2018-12-18] MEDS: OLANZapine 2.5 MG TABLET PO SCH (21:08)
[2018-12-19 00:43] LABS: ALLENS TEST POSITIVE
[2018-12-19 00:47] LABS: ARTERIAL BLD GAS O2 SATURATION 87.8 % (95-98); ARTERIAL BLOOD GAS BASE EXCESS 12.1 meq/l (-2-2); ARTERIAL BLOOD GAS PO2 56.9 mmHg (80-105); ARTERIAL BLOOD GAS pH 7.36 (7.35-7.45)
[2018-12-19 00:51] LABS: ARTERIAL BLOOD GAS PCO2 71.1 mmHg (35-45)
[2018-12-19] MEDS ORDERED: SODIUM CHLORIDE 100 ML IVPB ONE ×4 (02:31→22:12)
[2018-12-19] MEDS ORDERED: AMPICILLIN NA/SULBACTAM NA 1.5 GM VIAL ONE ×4 (02:31→22:12)
[2018-12-19] MEDS: AMPICILLIN NA/SULBACTAM NA 1.5 GM in SODIUM CHLORIDE 100 ML IVPB SCH ×4 (02:33→22:41)
[2018-12-19 07:22] LABS: BLOOD UREA NITROGEN 45.5 mg/dL (7-18); CALCIUM 9.1 mg/dL (8.5-10.1); CREATININE 1.3 mg/dL (0.55-1.3); MAGNESIUM 2.7 mg/dL (1.8-2.4)
[2018-12-19] MEDS: ALBUTEROL SO4 2.5/IPRATROPIUM 0.5 INH SOL 3 ML VIAL.NEB. NEB SCH ×4 (07:30→20:25)
[2018-12-19 07:44] LABS: POTASSIUM 4.7 mmol/L (3.5-5.1)
[2018-12-19] MEDS ORDERED: FUROSEMIDE 40 MG/4 ML INJECTABLE VIAL IVPUSH ONE (07:49)
[2018-12-19] MEDS: ASPIRIN 81 MG CHEWABLE TABLETS PO SCH (10:13)
[2018-12-19] MEDS: FERROUS SO4 325 MG TABLET (FP) PO SCH ×2 (10:13→17:41)
[2018-12-19] MEDS: EPLERENONE 25 MG TABLET PO SCH ×2 (10:14→22:48)
[2018-12-19] MEDS: EZETIMIBE 10 MG TABLET (FP) PO SCH (10:15)
[2018-12-19] MEDS: RANOLAZINE E.R. 1,000 MG TABLET (FP) PO SCH (10:15)
[2018-12-19] MEDS: lamoTRIgine 25 MG TABLET PO SCH (10:18)
[2018-12-19] MEDS: ENOXAPARIN NA (PORCINE) 40 MG/0.4 ML DISP.SYRIN SQ SCH (10:18)
--- NOTE | 2018-12-19 10:34 | EKG ---
Test Reason : Blood Pressure : / mmHG Vent. Rate : 069 BPM Atrial Rate : 276 BPM P-R Int : 000 ms QRS Dur : 094 ms QT Int : 428 ms P-R-T Axes : 230 -49 196 degrees QTc Int : 458 ms ATRIAL FLUTTER WITH 4:1 A-V CONDUCTION LEFT ANTERIOR FASCICULAR BLOCK LEFT VENTRICULAR HYPERTROPHY WITH REPOLARIZATION ABNORMALITY ABNORMAL ECG WHEN COMPARED WITH ECG OF 15-DEC-2018 15:57, ATRIAL FLUTTER HAS REPLACED SINUS RHYTHM Confirmed by MC WESTON MD ([id number]) on 12/19/2018 10:34:11 AM Referred By: Daphne CAMACHO Confirmed By:MC WESTON MD
--- NOTE | 2018-12-19 10:46 | PN ---
Progress Note (short form) - Note Progress Note: NEUROLOGY HISTORY OF PRESENT ILLNESS: 73yo male with COPD, newly diagnosed pulmonary HTN, sleep apnea, NYHA class II CHF, HTN, HLD, CAD s/p RCA stent who presented with weakness that has slowly progressed over 2 weeks prior to admission. His , who was at bedside in the ER, reported that since the weather has gotten hotter, he has been worsening. He has become increasingly somnolent and has been sleeping up to 18 hours/day. Day prior to admission, he was sitting at a table at home and got up then fell on the floor. He denied LOC but his reported he did hit his head. She did not witness the fall. He reports recently having a runny nose but no fever, chills, sore throat, or sinus congestion. He denied shortness of breath, cough, and wheezing. He reported chronic pedal edema which has gotten worse in the last week, especially left foot that was injured. The patient also had a fall 1 week ago prior to admission that resulted in an abrasion on his left conteh and foot. The leg has since developed vesicles, and his foot has a weeping wound and is more swollen than baseline. He also reported increased pedal edema and mild tenderness of his foot. His reported he was just diagnosed with pulmonary HTN and has not picked up new script yet. She also said he does not allow her to go to doctor's appointments as well. She is concerned for poor medication compliance. He is supposed to use CPAP at night but does she says he does not use it. During my evaluation, facemask in place and is awake but fatigued appearing. Would benefit from optimization of RADHIKA as this can precipitate his lethargy which likely multifactoral and includes ongoing medical comorbidities described above. Head CT completed, with no acute changes. Discussed this with the patient and he verbalized hypertension. Is getting ongoing respiratory management and neurologically with no deficits or complaints. Active Medications Albuterol Sulfate (Ventolin Hfa Inhaler -) 2 puff IH Q4H PRN PRN Reason: SHORT OF BREATH/WHEEZING Albuterol/Ipratropium (Duoneb -) 1 amp NEB RQID [facility] Last Admin: 12/19/18 07:30 Dose: 1 amp Aspirin (Asa -) 81 mg PO DAILY [facility] Last Admin: 12/19/18 10:13 Dose: 81 mg Atorvastatin Calcium (Lipitor -) 40 mg PO HS [facility] Last Admin: 12/18/18 21:08 Dose: 40 mg Ezetimibe (Zetia -) 10 mg PO DAILY [facility] Last Admin: 12/19/18 10:15 Dose: 10 mg Enoxaparin Sodium (Lovenox -) 40 mg SQ DAILY [facility] Last Admin: 12/19/18 10:18 Dose: 40 mg Eplerenone (Eplerenone) 25 mg PO BID [facility] Last Admin: 12/19/18 10:14 Dose: 25 mg Ferrous Sulfate (Feosol -) 325 mg PO BIDWM [facility] Last Admin: 12/19/18 10:13 Dose: 325 mg Furosemide (Lasix Injection -) 40 mg IVPUSH BID@0600,1400 [facility] Ampicillin Sodium/Sulbactam (Sodium 1.5 gm/ Sodium Chloride) 100 mls @ 200 mls/ hr IVPB Q6H-IV [facility] Last Admin: 12/19/18 10:13 Dose: 200 mls/hr Lamotrigine (Lamictal -) 25 mg PO DAILY [facility] Last Admin: 12/19/18 10:18 Dose: Not Given Metoprolol Succinate (Toprol Xl -) 50 mg PO BID [facility] Last Admin: 12/19/18 10:15 Dose: 50 mg Olanzapine (Zyprexa -) 2.5 mg PO HS [facility] Last Admin: 12/18/18 21:08 Dose: 2.5 mg Ranolazine (Ranexa -) 1,000 mg PO BID [facility] Last Admin: 12/19/18 10:15 Dose: 1,000 mg PHYSICAL EXAMINATION Vital Signs Temperature 97.9 F 12/19/18 05:21 Pulse Rate 69 12/19/18 05:21 Respiratory Rate 20 12/19/18 07:40 Blood Pressure 137/57 L 12/19/18 05:21 O2 Sat by Pulse Oximetry (%) 94 L 12/19/18 07:39 GENERAL: Awake, alert, and fully oriented, in no acute distress. Pt mildly altered. HEAD: Normal with no signs of trauma. EYES: Pupils equal, round and reactive to light, extraocular movements intact, sclera anicteric, conjunctiva clear. No lid lag. EARS, NOSE, THROAT: Ears normal, nares patent. Moist mucous membranes. NECK: Normal range of motion, supple without lymphadenopathy, JVD, or masses. LUNGS: Crackles heard bilaterally, no wheezing or accessory muscle use, unable to completely inhale HEART: Regular rate and rhythm, systolic murmur ABDOMEN: Soft, nontender, not distended, normoactive bowel sounds, no guarding, no rebound, no masses. MUSCULOSKELETAL: Normal range of motion at all joints. No bony deformities or tenderness. UPPER EXTREMITIES: 2+ pulses, warm, well-perfused. No cyanosis. No clubbing. No peripheral edema. LOWER EXTREMITIES: Dorsalis pulses not appreciated, feet are cold, +1 pitting edema in both feet with left foot sightly more edematous, left paper machine backtender to touch. Left dorsal surface small abrasion near base of toes. Lower third of left conteh erythematous with multiple vesicles. NEUROLOGICAL: Cranial nerves II-XII intact. Normal speech. PSYCHIATRIC: Cooperative. Good eye contact. Appropriate mood and affect. SKIN: Warm, dry, normal turgor, no rashes or lesions noted other than listed in LE, normal capillary refill. CBCD WBC 9.4 K/mm3 (4.0-10.0) 12/18/18 05:38 RBC 3.44 M/mm3 (4.00-5.60) L 12/18/18 05:38 Hgb 11.5 GM/dL (11.7-16.9) L 12/18/18 05:38 Hct 34.9 % (35.4-49) L 12/18/18 05:38 MCV 101.6 fl (80-96) H 12/18/18 05:38 MCHC 32.8 g/dl (32.0-35.9) 12/18/18 05:38 RDW 15.7 % (11.9-15.9) 12/18/18 05:38 Plt Count 204 K/MM3 (134-434) 12/18/18 05:38 MPV 9.0 fl (7.5-11.1) 12/18/18 05:38 CMP Sodium 141 mmol/L (136-145) 12/19/18 05:23 Potassium 4.7 mmol/L (3.5-5.1) 12/19/18 05:23 Chloride 95 mmol/L (98-107) L 12/19/18 05:23 Carbon Dioxide 43 mmol/L (21-32) H 12/19/18 05:23 Anion Gap 2 MMOL/L (8-16) L 12/19/18 05:23 BUN 45.5 mg/dL (7-18) H 12/19/18 05:23 Creatinine 1.3 mg/dL (0.55-1.3) 12/19/18 05:23 Random Glucose 146 mg/dL (74-106) H 12/19/18 05:23 Calcium 9.1 mg/dL (8.5-10.1) 12/19/18 05:23 Total Bilirubin 0.5 mg/dL (0.2-1) 12/18/18 05:38 AST 23 U/L (15-37) 12/18/18 05:38 ALT 53 U/L (13-61) 12/18/18 05:38 Alkaline Phosphatase 72 U/L (45-117) 12/18/18 05:38 Total Protein 6.8 g/dl (6.4-8.2) 12/18/18 05:38 Albumin 3.5 g/dl (3.4-5.0) 12/18/18 05:38 CARDIAC ENZYMES Troponin I < 0.02 ng/ml (0.00-0.05) 12/15/18 17:10 DIAGNOSTICS: Head CT - completed, no acute changes ASSESSMENT/PLAN: 73yo male with COPD, newly diagnosed pulmonary HTN, sleep apnea, NYHA class II CHF, HTN, HLD, CAD s/p RCA stent who presented with weakness that has slowly progressed over 2 weeks prior to admission. His , who was at bedside in the ER, reported that since the weather has gotten hotter, he has been worsening. He has become increasingly somnolent and has been sleeping up to 18 hours/day. Day prior to admission, he was sitting at a table at home and got up then fell on the floor. He denied LOC but his reported he did hit his head. She did not witness the fall. He reports recently having a runny nose but no fever, chills, sore throat, or sinus congestion. He denied shortness of breath, cough, and wheezing. He reported chronic pedal edema which has gotten worse in the last week, especially left foot that was injured. The patient also had a fall 1 week ago prior to admission that resulted in an abrasion on his left conteh and foot. The leg has since developed vesicles, and his foot has a weeping wound and is more swollen than baseline. He also reported increased pedal edema and mild tenderness of his foot. His reported he was just diagnosed with pulmonary HTN and has not picked up new script yet. She also said he does not allow her to go to doctor's appointments as well. She is concerned for poor medication compliance. He is supposed to use CPAP at night but does she says he does not use it. During my evaluation, facemask in place and is awake but fatigued appearing. Would benefit from optimization of RADHIKA as this can precipitate his lethargy which likely multifactoral and includes ongoing medical comorbidities described above. Head CT completed, with no acute changes. Continue treatment for pulmonary etiologies, cardiology follow up. Increased hydration, physical therapy as tolerated. Monitor bp, maintain normotensive range. Call back as needed, neurologically no further recommendations at this time
--- NOTE | 2018-12-19 11:17 | PN ---
Teaching Attending Note Name of Resident: Zoila Mallory ATTENDING PHYSICIAN STATEMENT I saw and evaluated the patient. I reviewed the resident's note and discussed the case with the resident. I agree with the resident's findings and plan as documented. SUBJECTIVE:c/o about being on the bipap. does not want to use it. denies Cp, SOB , fever, chills, cough, [employer] called yesterday for dyspnea when pt went to lie down for XR. was given lasix 40mg x1 with improvement OBJECTIVE: Last Vital Signs Temp Pulse Resp BP Pulse Ox 97.9 F 69 20 137/57 L 94 L 12/19/18 05:21 12/19/18 05:21 12/19/18 07:40 12/19/18 05:21 12/19/18 07:39 Intake & Output 12/16/18 12/17/18 12/18/18 12/19/18 23:59 23:59 23:59 23:59 Intake Total 650 1710 940 520 Output Total 1000 400 Balance 650 1710 -60 120 Weight 209 lb 5 oz 210 lb 213 lb General NAD, speech is tangential CV S1 S2 + Lungs crackles R base >L Extremities 1 + pitting edema B/L LE, erthema to L hallux with skin abrasion. no active oozing. erythema on conteh resolved ASSESSMENT AND PLAN: 73yo M wtih PMH RADHIKA on CPAP, HTN, COPD on 3L Home O2, CHF, CAD s/p stent with current treatment for LE cellulitis brought in by for altered mental status and claimed he had sucidial idealiations 1. acute toxic metabolic encephalopathy- likely due to hypercapnia. remains alert however slightly still confused. still retaining and patient is refusing to wear bipap. encouraged use. will repeat ABG. pulmonary consult. Head CT negative. seen by psych and neuro. started on zyprexa. 2. Acute hypoxixc hypercapnic respiratory failure- due to acute on chronic diastolic CHF. cont lasix 40mg IVP BID. monitor I&O. monitor electrolyes. decrease oxygen requirement as tolerated. had recent echo with R&L heart cath earlier this year. will need cardiac MRI as outpatient to further evaluate HOCM. cardio on board. would benefit from pulm-cardio rehab 3. LLE cellulitis- failed outpatient therapy. clinically improved. cont unasyn day 4. arterial u/s negative for acute occlusion. no DVT. Cx negative 4. Fall- could be mechanical or in setting of confusion. no repeat episode. unable to get hip XR due to [employer]. doesnot seem to have pain. will hold off as pt can not lie flat for imaging. 4. Iron def anemia- no signs of bleeding. no indication for transfusion. on iron supplements 5. RADHIKA on cpap-encourage cpap use. 6. CAD s/p stent 7. DVT ppx- lovenox 8. would benefit from pulm-cardiac rehab when medically optimized
--- NOTE | 2018-12-19 13:01 | PN ---
Progress Note, Physician History of Present Illness: Sensorium improved, dyspnea and orthopnea improved once diuresis resumed, declines bipap assistance. Now in rate-controlled aflutter. - Current Medication List Current Medications: Active Medications Albuterol Sulfate (Ventolin Hfa Inhaler -) 2 puff IH Q4H PRN PRN Reason: SHORT OF BREATH/WHEEZING Albuterol/Ipratropium (Duoneb -) 1 amp NEB RQID [facility] Last Admin: 12/19/18 12:13 Dose: 1 amp Aspirin (Asa -) 81 mg PO DAILY [facility] Last Admin: 12/19/18 10:13 Dose: 81 mg Atorvastatin Calcium (Lipitor -) 40 mg PO HS [facility] Last Admin: 12/18/18 21:08 Dose: 40 mg Ezetimibe (Zetia -) 10 mg PO DAILY [facility] Last Admin: 12/19/18 10:15 Dose: 10 mg Enoxaparin Sodium (Lovenox -) 40 mg SQ DAILY [facility] Last Admin: 12/19/18 10:18 Dose: 40 mg Eplerenone (Eplerenone) 25 mg PO BID [facility] Last Admin: 12/19/18 10:14 Dose: 25 mg Ferrous Sulfate (Feosol -) 325 mg PO BIDWM [facility] Last Admin: 12/19/18 10:13 Dose: 325 mg Furosemide (Lasix Injection -) 40 mg IVPUSH BID@0600,1400 [facility] Ampicillin Sodium/Sulbactam (Sodium 1.5 gm/ Sodium Chloride) 100 mls @ 200 mls/ hr IVPB Q6H-IV [facility] Last Admin: 12/19/18 10:13 Dose: 200 mls/hr Lamotrigine (Lamictal -) 25 mg PO DAILY [facility] Last Admin: 12/19/18 10:18 Dose: Not Given Metoprolol Succinate (Toprol Xl -) 50 mg PO BID [facility] Last Admin: 12/19/18 10:15 Dose: 50 mg Olanzapine (Zyprexa -) 2.5 mg PO HS [facility] Last Admin: 12/18/18 21:08 Dose: 2.5 mg Ranolazine (Ranexa -) 1,000 mg PO BID [facility] Last Admin: 12/19/18 10:15 Dose: 1,000 mg - Objective Vital Signs: Vital Signs Temperature 97.9 F 12/19/18 05:21 Pulse Rate 69 12/19/18 05:21 Respiratory Rate 20 12/19/18 07:40 Blood Pressure 137/57 L 12/19/18 05:21 O2 Sat by Pulse Oximetry (%) 97 12/19/18 12:13 Constitutional: Yes: No Distress, Calm Neck: Yes: Supple Cardiovascular: Yes: Regular Rate and Rhythm Respiratory: Yes: Regular, Diminished, On Nasal O2 Gastrointestinal: Yes: Normal Bowel Sounds, Soft Edema: Yes Edema: LLE: 1+, RLE: 1+ Labs: CBC, BMP 12/18/18 05:38 12/19/18 05:23 - ....Imaging EKG: Report Reviewed (Aflutter 4:1 @ 69 LVH with repol abnl, LAD) Problem List - Problems (1) Coronary artery disease Code(s): I25.10 - ATHSCL HEART DISEASE OF [place] CORONARY ARTERY W/O ANG PCTRS Qualifiers: Coronary Disease-Associated Artery/Lesion type: [place] artery [place] vs. transplanted heart: [place] heart Associated angina: without angina Qualified Code(s): I25.10 - Atherosclerotic heart disease of [place] coronary artery without angina pectoris (2) S/P right coronary artery (RCA) stent placement Code(s): Z95.5 - PRESENCE OF CORONARY ANGIOPLASTY IMPLANT AND GRAFT (3) Hyperlipidemia Code(s): E78.5 - HYPERLIPIDEMIA, UNSPECIFIED Qualifiers: Hyperlipidemia type: pure hypercholesterolemia Qualified Code(s): E78.00 - Pure hypercholesterolemia, unspecified; E78.0 - Pure hypercholesterolemia (4) RADHIKA (obstructive sleep apnea) Code(s): G47.33 - OBSTRUCTIVE SLEEP APNEA (ADULT) (PEDIATRIC) (5) Pulmonary hypertension assoc with unclear multi-factorial mechanisms Code(s): I27.29 - OTHER SECONDARY PULMONARY HYPERTENSION (6) Toxic metabolic encephalopathy Code(s): G92 - TOXIC ENCEPHALOPATHY (7) Hypertensive cardiomyopathy Code(s): I11.9 - HYPERTENSIVE HEART DISEASE WITHOUT HEART FAILURE; I43 - CARDIOMYOPATHY IN DISEASES CLASSIFIED ELSEWHERE Qualifiers: Heart failure presence: with heart failure Qualified Code(s): I11.0 - Hypertensive heart disease with heart failure; I43 - Cardiomyopathy in diseases classified elsewhere (8) CHF exacerbation Code(s): I50.9 - HEART FAILURE, UNSPECIFIED Qualifiers: Heart failure type: diastolic Qualified Code(s): I50.33 - Acute on chronic diastolic (congestive) heart failure (9) COPD exacerbation Code(s): J44.1 - CHRONIC OBSTRUCTIVE PULMONARY DISEASE W (ACUTE) EXACERBATION (10) Hypertrophic cardiomyopathy Code(s): I42.2 - OTHER HYPERTROPHIC CARDIOMYOPATHY (11) Atrial flutter with controlled response Code(s): I48.92 - UNSPECIFIED ATRIAL FLUTTER Assessment/Plan 11/12/2018 R&LHc Elevated right-sided pressures, moderate pulm HTN, normal PVRI , elevated PCWP, elevated LVEDP, decreased cardiac output, 1 vessel CAD with occluded prox RCA filling via bridging collaterals, hyperdynamic systolic function 11/08/2018 Echo: Mod cLVH with normal systolic function LVEF 60-65%, grade II diastolic dysfunction with elevated filling pressures, hyperdynamic mid cavity with obliteration suggestive of mid cavity obstruction, resting left ventricular outflow tract gradient 25 mmHg increasing to 33 mmHg with Valsalva, mild LAE, normal RV size and fxn, mild-mod MR, mild TR RVSP 33 mmHg 09/22/2017 Dobutamine Myoview: Moderate size inferior perfusion defect wth mild ischemia, normal LVEF 88% 12/16/2018 LE US: No DVT bilaterally, moderate atherosclerosis w/o stenosis bilaterally 12/18/2018 HCT: No acute changes 1. Acute on chronic hypercapneic, hypoxemic respiratory failure with toxic metabolic encephelopathy and underlying 2. Acute on chronic diastolic heart failure, mod functional MS and mod pulm HTH 3. Acute exacerbation of COPD 4. OSAS not compliant with cpap 5. 1 vessel CAD h/o RCA stents 6. Hypertensive heart disease/HOCM of elderly 7. Paroxysmal atrial flutter ([id number]) 8. Hyperlipidemia 9. Sick euthyroid 10. LLE cellulitis 11. CANDY improving P:1. Resumed IV diuresis with monitor diuretic response, renal fxn and electrolytes 2. BD, steroids, O2 as needed, bipap nightly if patient allows 3. Cardiac MRI as outpatient to evaluate HOCM of elderly 4. Change ASA 81 qd to Eliquis 5 bid, d/c Lovenox, continue eplerenone 25 bid, Zetia 10 qd, Lipitor 40 qd, Toprol XL 50 bid, Ranexa 1000 bid, recheck ECG 5. Consider cardioversion if compliance with Eliquis is assured, although cpap noncompliance can make it difficult to maintain SR 6. Wound care, empiric Unasyn course 7. PT->SNF
[2018-12-19] MEDS: FUROSEMIDE 40 MG/4 ML INJECTABLE VIAL IVPUSH SCH (14:26)
--- NOTE | 2018-12-19 14:57 | PN ---
Physical Exam: SUBJECTIVE: Patient seen and examined at bedside. Resistant towards using BiPAP overnight. "I don't need to use it, I'm not in extremus." This AM, requesting to go home. OBJECTIVE: Vital Signs Period Temp Pulse Resp BP Sys/Govea Pulse Ox Last 24 Hr 97.1 F-98.8 F 69-81 20-22 101-137/45-60 89-97 GENERAL: The patient is AAO x 3. on 3L NC HEAD: Normal with no signs of trauma. EYES: PERRL, extraocular movements intact, sclera anicteric, conjunctiva clear. NECK: Trachea midline, supple. LUNGS: +bibasilar crackles. HEART: Regular rate and rhythm, S1, S2 without murmur, rub or gallop. ABDOMEN: Soft, nontender, nondistended EXTREMITIES: 2+ pt pulses, warm. +LLE: 1+ pitting edema, with erythema dorsum of foot. +RLE 1 + pitting edema NEUROLOGICAL: Cranial nerves II through XII grossly intact. PSYCH: Normal mood, normal affect. Laboratory Results 12/18/18 12/19/18 12/19/18 14:31 00:40 05:23 Anticoagulation Therapy No Result Required. No Result Required. Puncture Site Left radial Left radial ABG pH 7.34 L 7.36 ABG pCO2 at Pt Temp 69.8 H 71.1 H* ABG pO2 at Pt Temp 50.5 L 56.9 L ABG HCO3 36.5 H 39.5 H ABG O2 Sat (Measured) 82.9 L 87.8 L ABG O2 Content 12.7 L 12.6 L ABG Base Excess 9.0 H 12.1 H Dante Test Positive Positive O2 Delivery Device No Result Required. Bipap Oxygen Flow Rate Yes 40% Vent Mode No Result Required. S/t Vent Rate No Result Required. 12 Mechanical Rate No Result Required. Bipap Pressure Support Vent No Result Required. 10/5 Sodium 141 Potassium 4.7 Chloride 95 L Carbon Dioxide 43 H Anion Gap 2 L BUN 45.5 H Creatinine 1.3 Est GFR (CKD-EPI)AfAm 63.18 Est GFR (CKD-EPI)NonAf 54.51 Random Glucose 146 H Calcium 9.1 Magnesium 2.7 H TSH 0.71 D ASSESSMENT/PLAN: 73 y/o M with PMH RADHIKA on CPAP, HTN, COPD on 3L Home O2, CHF, CAD s/p stent on current treatment for LE cellulitis who was brought in by his for altered mental status and claimed he had suicidal ideation. #Acute toxic metabolic encephalopathy likely 2/2 hypercapnia #Acute hypoxic hypercapnic RF 2/2 acute on chronic diastolic CHF -refusing BiPAP; explained risks of not using, expressed verbal understanding -f/u repeat ABG -c/w lasix IVP 40 BID, eplerenone -wts, i/o -c/w nebs -will need cardio-pulm rehab #paraoxysmal aflutter -started on eliquis 5 mg BID . changed from asa -can consider cardioversion if compliant w eliquis -seen by cardio #HOCM -outpatient cardiac MRI #LLE cellulitis -improving. with decreased edema, erythema -ucx, blood cx (-) -c/w unasyn (Day 4) #s/p fall -without complaint; cannot lay flat for imaging #SHERIDAN -c/w fe sulfate #HTN-controlled -c/w toprol #CAD s/p RCA stents -c/w ranexa, zetia lipitor, toprol #F/E/N no need for IVF at this time continue to follow lytes, zain as restarted diuresis chol/fat/na restricted diet #PPX on eliquis lovenox, asa have been d/c #dispo cont'd monitoring on tele Visit type - Emergency Visit Emergency Visit: No - New Patient This patient is new to me today: Yes Date on this admission: 12/19/18 - Critical Care Critical Care patient: No
[2018-12-19 17:03] LABS: ARTERIAL BLD GAS O2 SATURATION 93.4 % (95-98); ARTERIAL BLOOD GAS BASE EXCESS 12.7 meq/l (-2-2); ARTERIAL BLOOD GAS PO2 73.2 mmHg (80-105); ARTERIAL BLOOD GAS pH 7.35 (7.35-7.45)
[2018-12-19 17:05] LABS: ALLENS TEST POSITIVE; ARTERIAL BLOOD GAS PCO2 75.4 mmHg (35-45)
[2018-12-19] MEDS ORDERED: PROPOFOL 1,000,000 MCG/100 ML VIAL ONE ×2 (18:31→20:02)
[2018-12-19] MEDS: PROPOFOL 1,000,000 MCG/100 ML VIAL IVPB SCH (19:00)
--- NOTE | 2018-12-19 19:41 | RAPID ---
Physical Examination Vital Signs: Vital Signs Temperature 98.4 F 12/19/18 18:15 Pulse Rate 89 12/19/18 18:55 Respiratory Rate 14 12/19/18 18:55 Blood Pressure 126/83 12/19/18 18:15 O2 Sat by Pulse Oximetry (%) 96 12/19/18 18:55 Labs: CBC, BMP 12/18/18 05:38 12/19/18 05:23 Rapid Response - Rapid Response Assessment: Rapid response paged overhead at 6:00PM. Patient was unresponsive. Patient did not have a pulse. ACLS protocol was initiated and followed. Please see code sheet in chart for details. ROSC was achieved. Pt was moved to ICU. Last Vital Signs Temp Pulse Resp BP Pulse Ox 98.4 F 89 14 126/83 96 12/19/18 18:15 12/19/18 18:55 12/19/18 18:55 12/19/18 18:15 12/19/18 18:55
[2018-12-19] MEDS ORDERED: NOREPINEPHRINE BITARTRATE 4 MG/4 ML ML IV ONE (20:01)
--- NOTE | 2018-12-19 20:06 | CONSULT ---
Consultation: CONSULT REQUEST: We have been asked to medically evaluate this patient for s/p cardiac arrest HISTORY OF PRESENT ILLNESS: 73 year old male with a medical history of COPD (on home O2), pulmonary hypertension, sleep apnea, CHFpEF (60-65%), hypertension, hyperlipidemia, CAD s/ p right coronary artery stent presented for weakness and somnolence. Per primary team, reported that he is not compliant with medication and medical recommendation and does not use CPAP at night. He was admitted for the treatment of acute on chronic hypercapnic respiratory failure secondary to combination of COPD and CHF exacerbation. He was treated with steroids, O2, CPAP and diuresis during the early course of his hospitalization. Developed toxic metabolic encephalopathy a couple of days into the admission attributed to hypoxemic/hypercapnic respiratory failure, and patient also developed paroxysmal atrial flutter, for which his aspirin was switched to eliquis 5mg BID. Brandan, a code 99 was called for cardiac arrest. Patient reportedly was given 2 rounds of epinephrine and ROSC was achieved after around 10 minutes. He was intubated and brought to the ICU. A subclavian central venous catheter was placed during the day shift. Patient was noted to be hypotensive with MAPs to the 50s, which improved after 1 fluid bolus. Per day team, patient was responding meaningfully with arms/legs and decision was made not to begin targeted temperature management. REVIEW OF SYSTEMS: Unable to obtain due to mental status. PHYSICAL EXAMINATION Vital Signs - 24 hr 12/18/18 12/18/18 12/18/18 21:00 21:21 21:40 Temperature 98.2 F 98.2 F Pulse Rate 72 72 Respiratory 22 H 22 H Rate Blood Pressure 103/45 L 103/45 L O2 Sat by Pulse 89 L Oximetry (%) 12/18/18 12/18/18 12/19/18 21:45 23:21 00:58 Temperature Pulse Rate 70 Respiratory 21 H Rate Blood Pressure 106/52 L O2 Sat by Pulse 94 L 94 L Oximetry (%) 12/19/18 12/19/18 12/19/18 01:21 02:00 05:21 Temperature 97.9 F Pulse Rate 69 69 69 Respiratory 20 20 21 H Rate Blood Pressure 101/53 L 101/53 L 137/57 L O2 Sat by Pulse Oximetry (%) 12/19/18 12/19/18 12/19/18 07:39 07:40 11:00 Temperature 97.9 F Pulse Rate 83 Respiratory 20 20 Rate Blood Pressure 106/64 O2 Sat by Pulse 94 L Oximetry (%) 12/19/18 12/19/18 12/19/18 12:13 16:29 17:21 Temperature 98.4 F Pulse Rate 66 Respiratory Rate Blood Pressure 97/50 L O2 Sat by Pulse 97 97 Oximetry (%) 12/19/18 12/19/18 18:15 18:55 Temperature 98.4 F Pulse Rate 80 89 Respiratory 16 14 Rate Blood Pressure 126/83 O2 Sat by Pulse 96 Oximetry (%) GENERAL: A&Ox0, intubated and sedated, responds to pain EYES: PERRLA, unable to assess extraoccular eye muscles ENT: Moist mucus membranes NECK: No JVD noted LUNGS: intubated, mechanically ventilated and has mechanical breath sounds HEART: irregularly irregular, soft systolic murmur noted on exam, L sided subclavian central line in place ABDOMEN: Soft, nontender, BS present MUSCULOSKELETAL: No CVA Tenderness EXTREMITIES: 2+ pulses, 2+ pitting edema noted NEUROLOGICAL: Unable to assess based on mental status Laboratory Results - last 24 hr 12/19/18 12/19/18 12/19/18 00:40 05:23 16:51 Anticoagulation Therapy No Result Required. No Result Required. Puncture Site Left radial Left radial ABG pH 7.36 7.35 ABG pCO2 at Pt Temp 71.1 H* 75.4 H* ABG pO2 at Pt Temp 56.9 L 73.2 L ABG HCO3 39.5 H 40.5 H ABG O2 Sat (Measured) 87.8 L 93.4 L ABG O2 Content 12.6 L 13.7 L ABG Base Excess 12.1 H 12.7 H Dante Test Positive Positive O2 Delivery Device Bipap Bipap Oxygen Flow Rate 40% No Result Required. Vent Mode S/t No Result Required. Vent Rate 12 16 Mechanical Rate Bipap No Result Required. Pressure Support Vent 10/5 10/5 Sodium 141 Potassium 4.7 Chloride 95 L Carbon Dioxide 43 H Anion Gap 2 L BUN 45.5 H Creatinine 1.3 Est GFR (CKD-EPI)AfAm 63.18 Est GFR (CKD-EPI)NonAf 54.51 Random Glucose 146 H Calcium 9.1 Magnesium 2.7 H TSH 0.71 D Active Medications Generic Name Dose Route Start Last Admin Trade Name Freq PRN Reason Stop Dose Admin Albuterol Sulfate 2 puff 12/15/18 20:10 Ventolin Hfa Inhaler - IH Q4H PRN SHORT OF BREATH/WHEEZING Albuterol/Ipratropium 1 amp 12/16/18 20:30 12/19/18 16:28 Duoneb - NEB 1 amp RQID JONH Administration Apixaban 5 mg 12/19/18 22:00 Eliquis - PO BID JONH Atorvastatin Calcium 40 mg 12/15/18 22:00 12/18/18 21:08 Lipitor - PO 40 mg HS JONH Administration Ezetimibe 10 mg 12/16/18 10:00 12/19/18 10:15 Zetia - PO 10 mg DAILY JONH Administration Eplerenone 25 mg 12/15/18 22:00 12/19/18 10:14 Eplerenone PO 25 mg BID JONH Administration Ferrous Sulfate 325 mg 12/17/18 08:00 12/19/18 17:41 Feosol - PO 325 mg BIDWM JONH Administration Furosemide 40 mg 12/19/18 14:00 12/19/18 14:26 Lasix Injection - IVPUSH 40 mg BID@0600,1400 JONH Administration Ampicillin Sodium/Sulbactam 100 mls @ 200 mls/hr 12/16/18 15:00 12/19/18 14: 28 Sodium 1.5 gm/ Sodium Chloride IVPB 200 mls/hr Q6H-IV JONH Administration Lamotrigine 25 mg 12/16/18 10:00 12/19/18 10:18 Lamictal - PO Not Given DAILY JONH Metoprolol Succinate 50 mg 12/15/18 22:00 12/19/18 10:15 Toprol Xl - PO 50 mg BID JONH Administration Olanzapine 2.5 mg 12/17/18 22:00 12/18/18 21:08 Zyprexa - PO 2.5 mg HS JONH Administration Ranolazine 1,000 mg 12/15/18 22:00 12/19/18 10:15 Ranexa - PO 1,000 mg BID JONH Administration ASSESSMENT/PLAN: 73 year old male with a medical history of COPD (on home O2), pulmonary hypertension, sleep apnea, CHFpEF (60-65%), hypertension, hyperlipidemia, CAD s/ p right coronary artery stent presented for weakness and somnolence, admitted for treatment of hypoxic, hypercapnic respiratory failure 2/2 COPD/CHF exacerbation is transferred to ICU s/p cardiac arrest Assessments #S/P Cardiac Arrest #COPD exacerbation #CHF exacerbation #Pulmonary hypertension #Sleep Apnea #Hypertension #Hyperlipidemia #CAD #LLE cellulitis Plan Neurological -intubated and sedated on propofol, responds to pain, almost meaningfully - decision was made not to start targeted temperature management -OG tube was inserted -continue zyprexa Cardiovascular -Cardiac Arrest: regained ROSC after 10 minutes and 2 rounds of epinephrine. Most likely cause of arrest is hypoxia/hypercapnia due to non-compliance with non-invasive O2 delivery, however we will evaluate for alternative causes of arrest -chest X ray ordered -post arrest labs ordered, CBC, CMP, mag, phos, trop, lactic acid -EKG ordered - afib with no new ischemic changes from prior EKG -post-arrest ABG ordered -after patient arrested, he became hypotensive with a MAP trough of 50, improved after 1L of normal saline bolus to a MAP of 75 -subclavian line was placed -norepinephrine drip ordered and put on hold in case patient requires pressors -can continue to diurese with lasix/eplerenone as patient's pressure is stabilized and he is fluid overloaded -continue ranolazine -continue ezetimibe and atorvastatin -patient appears to be currently in atrial fibrillation on monitor, will confirm on repeat EKG -continue eliquis -continue beta beatriz in AM if BP is amenable -troponinemia likely 2/2 cardiac arrest and hypoxia -> will trend Pulmonary -intubated and sedated; ventilator settings as follows: TV 500, RR 14, FiO2 100% , PEEP 5 -post arrest ABG ordered -will alter vent settings based on ABG Gastrointestinal -no acute abnormalities Renal -will assess post-arrest renal function on repeat BMP Infectious Diseases -LLE cellulitis, continue unasyn day 4 FEN -s/p 1 L NS, will give maintenance fluids -repeat labs pending -NPO while intubated Prophylaxis -on eliquis Disposition -monitor in ICU ATTENDING PHYSICIAN STATEMENT I saw and evaluated the patient. I reviewed the resident's note and discussed the case with the resident. I agree with the resident's findings and plan as documented. SUBJECTIVE: OBJECTIVE: ASSESSMENT AND PLAN:
[2018-12-19] MEDS ORDERED: PROPOFOL 200 MG/20 ML VIAL IVPUSH STA ×2 (20:09→20:12)
[2018-12-19] MEDS ORDERED: PROPOFOL 200 MG/20 ML VIAL IVPUSH ONE (20:11)
--- NOTE | 2018-12-19 20:13 | PROC ---
Central Line Insertion Indication: CVP Monitoring, Vasopressor Risks and Benefits Explained: Yes Consent on Chart: Yes Central Line: Triple Lumen Catheter Anesthesia: 1% Lidocaine Sterile Technique: Yes Ultrasound Guided Assistance: No Position: Left Subclavian Post Insertion: Yes: Bilateral Breath Sounds, Bilateral Chest Expansion, Chest X-Ray Ordered Sterile Dressing Applied: Yes Remarks: REQUIRED EXPERIENCED ICU PROVIDER.
[2018-12-19] MEDS ORDERED: SODIUM CHLORIDE 1,000 ML IV STA (20:59)
[2018-12-19] MEDS ORDERED: SODIUM CHLORIDE 1,000 ML IV SCH (21:00)
[2018-12-19] MEDS ORDERED: PT OWN MED DRAWER 7, Y5N ONE (22:12)
[2018-12-19 22:55] LABS: ARTERIAL BLD GAS O2 SATURATION 38.8 % (95-98); ARTERIAL BLOOD GAS BASE EXCESS 12.6 meq/l (-2-2); ARTERIAL BLOOD GAS pH 7.33 (7.35-7.45)
[2018-12-19 22:55] LABS: HEMOGLOBIN 9.8 GM/dL (11.7-16.9); MCH 32.9 pg (25.7-33.7); MCHC 32.8 g/dl (32.0-35.9); MEAN CELL VOLUME 100.4 fl (80-96); PLATELET COUNT 151 K/MM3 (134-434); RBC 2.99 M/mm3 (4.00-5.60); RDW 15.7 % (11.9-15.9); WHITE BLOOD COUNT 8.1 K/mm3 (4.0-10.0)
[2018-12-19 22:57] LABS: ALLENS TEST POSITIVE
[2018-12-19 23:01] LABS: ARTERIAL BLOOD GAS PCO2 78.8 mmHg (35-45); ARTERIAL BLOOD GAS PO2 27.4 mmHg (80-105)
[2018-12-19 23:08] LABS: INR 1.21 (0.83-1.09); PROTHROMBIN TIME (PATIENT) 14.3 SEC (9.7-13.0)
[2018-12-19 23:56] LABS: BILIRUBIN,TOTAL 0.6 mg/dL (0.2-1); BLOOD UREA NITROGEN 47.1 mg/dL (7-18); CALCIUM 8.1 mg/dL (8.5-10.1); CREATININE 1.4 mg/dL (0.55-1.3); MAGNESIUM 2.3 mg/dL (1.8-2.4); POTASSIUM 4.4 mmol/L (3.5-5.1); TOT PROT 5.6 g/dl (6.4-8.2)
[2018-12-20] MEDS: ATORVASTATIN CA 40 MG TABLET (FP) PO SCH ×2 (00:53→22:16)
[2018-12-20] MEDS: OLANZapine 2.5 MG TABLET PO SCH ×2 (00:53→22:17)
[2018-12-20] MEDS: APIXABAN 5 MG TABLET PO SCH ×3 (00:53→22:16)
[2018-12-20] MEDS: RANOLAZINE E.R. 1,000 MG TABLET (FP) PO SCH ×3 (00:53→22:17)
[2018-12-20] MEDS: NOREPINEPHRINE BITARTRATE 8,000 MCG in DEXTROSE 5%-WATER - 492 ML IV SCH ×2 (00:55→02:49)
[2018-12-20] MEDS ORDERED: SODIUM CHLORIDE 100 ML IVPB ONE ×4 (03:38→22:10)
[2018-12-20] MEDS ORDERED: AMPICILLIN NA/SULBACTAM NA 1.5 GM VIAL ONE ×4 (03:38→22:10)
[2018-12-20] MEDS: AMPICILLIN NA/SULBACTAM NA 1.5 GM in SODIUM CHLORIDE 100 ML IVPB SCH ×4 (03:42→22:16)
[2018-12-20 04:40] LABS: ALBUMIN 2.9 g/dl (3.4-5.0); BILIRUBIN,TOTAL 0.8 mg/dL (0.2-1); BLOOD UREA NITROGEN 45.3 mg/dL (7-18); CALCIUM 8.2 mg/dL (8.5-10.1); CREATININE 1.2 mg/dL (0.55-1.3); POTASSIUM 4.5 mmol/L (3.5-5.1); TOT PROT 5.5 g/dl (6.4-8.2)
[2018-12-20] MEDS: FUROSEMIDE 40 MG/4 ML INJECTABLE VIAL IVPUSH SCH ×2 (05:53→13:53)
[2018-12-20] MEDS: PROPOFOL 1,000,000 MCG/100 ML VIAL IVPB SCH ×2 (05:55→22:30)
[2018-12-20 06:26] LABS: HEMATOCRIT 28.6 % (35.4-49); HEMOGLOBIN 9.6 GM/dL (11.7-16.9); MCH 33.4 pg (25.7-33.7); MCHC 33.4 g/dl (32.0-35.9); MEAN PLT VOLUME 8.9 fl (7.5-11.1); PLATELET COUNT 164 K/MM3 (134-434); RBC 2.86 M/mm3 (4.00-5.60); RDW 15.6 % (11.9-15.9); WHITE BLOOD COUNT 8.3 K/mm3 (4.0-10.0)
[2018-12-20 07:05] LABS: ARTERIAL BLD GAS O2 SATURATION 96.4 % (95-98); ARTERIAL BLOOD GAS BASE EXCESS 13.9 meq/l (-2-2); ARTERIAL BLOOD GAS PCO2 52.9 mmHg (35-45); ARTERIAL BLOOD GAS PO2 78.1 mmHg (80-105); ARTERIAL BLOOD GAS pH 7.48 (7.35-7.45)
[2018-12-20 07:11] LABS: ALLENS TEST POSITIVE
[2018-12-20] MEDS: ALBUTEROL SO4 2.5/IPRATROPIUM 0.5 INH SOL 3 ML VIAL.NEB. NEB SCH ×4 (07:30→20:49)
[2018-12-20] MEDS: FERROUS SO4 325 MG TABLET (FP) PO SCH ×2 (08:01→17:11)
--- NOTE | 2018-12-20 09:34 | PN ---
Progress Note, Physician History of Present Illness: Overnight events noted, sustained PEA arrest due to hypercapneic, hypoxemic respiratory failure, 10 min ROSC. Now in rate-controlled afib. - Current Medication List Current Medications: Active Medications Albuterol Sulfate (Ventolin Hfa Inhaler -) 2 puff IH Q4H PRN PRN Reason: SHORT OF BREATH/WHEEZING Albuterol/Ipratropium (Duoneb -) 1 amp NEB RQID [facility] Last Admin: 12/20/18 07:30 Dose: 1 amp Apixaban (Eliquis -) 5 mg PO BID [facility] Last Admin: 12/20/18 00:53 Dose: 5 mg Atorvastatin Calcium (Lipitor -) 40 mg PO HS [facility] Last Admin: 12/20/18 00:53 Dose: 40 mg Ezetimibe (Zetia -) 10 mg PO DAILY [facility] Last Admin: 12/19/18 10:15 Dose: 10 mg Eplerenone (Eplerenone) 25 mg PO BID [facility] Last Admin: 12/19/18 22:48 Dose: Not Given Ferrous Sulfate (Feosol -) 325 mg PO BIDWM [facility] Last Admin: 12/20/18 08:01 Dose: 325 mg Furosemide (Lasix Injection -) 40 mg IVPUSH BID@0600,1400 [facility] Last Admin: 12/20/18 05:53 Dose: 40 mg Ampicillin Sodium/Sulbactam (Sodium 1.5 gm/ Sodium Chloride) 100 mls @ 200 mls/ hr IVPB Q6H-IV [facility] Last Admin: 12/20/18 08:01 Dose: 200 mls/hr Norepinephrine Bitartrate 8, (000 mcg/ Dextrose) 500 mls @ 10.84 mls/hr IV ASDIR [facility]; Protocol Last Titration: 12/20/18 06:00 Dose: 0.03 mcg/kg/min, 10.84 mls/hr Propofol (Diprivan -) 1,000,000 mcg in 100 mls @ 2.892 mls/hr IVPB TITR [facility]; Protocol Last Admin: 12/20/18 05:55 Dose: 20 mcg/kg/min, 11.568 mls/hr Lamotrigine (Lamictal -) 25 mg PO DAILY [facility] Last Admin: 12/19/18 10:18 Dose: Not Given Metoprolol Succinate (Toprol Xl -) 50 mg PO BID [facility] Last Admin: 12/19/18 22:47 Dose: Not Given Olanzapine (Zyprexa -) 2.5 mg PO HS [facility] Last Admin: 12/20/18 00:53 Dose: 2.5 mg Ranolazine (Ranexa -) 1,000 mg PO BID [facility] Last Admin: 12/20/18 00:53 Dose: 1,000 mg - Objective Vital Signs: Vital Signs Temperature 98.2 F 12/20/18 06:00 Pulse Rate 73 12/20/18 08:19 Respiratory Rate 23 H 12/20/18 08:19 Blood Pressure 104/64 12/20/18 06:00 O2 Sat by Pulse Oximetry (%) 100 12/20/18 08:19 Constitutional: Yes: No Distress, Calm Neck: Yes: Supple Cardiovascular: Yes: Pulse Irregular Respiratory: Yes: Intubated, Mechanically Ventilated, Rhonchi, SOB Gastrointestinal: Yes: Soft, Hypoactive Bowel Sounds Edema: Yes Edema: LLE: Trace, RLE: Trace Labs: CBC, BMP 12/20/18 05:54 12/20/18 03:50 INR, PTT INR 1.21 (0.83-1.09) H 12/19/18 22:23 - ....Imaging Chest X-ray: Report Reviewed (Congestion with bibasilar effusion, ATX) EKG: Report Reviewed (Afib @ 63 LVH, LAD) Problem List - Problems (1) Coronary artery disease Code(s): I25.10 - ATHSCL HEART DISEASE OF [place] CORONARY ARTERY W/O ANG PCTRS Qualifiers: Coronary Disease-Associated Artery/Lesion type: [place] artery [place] vs. transplanted heart: [place] heart Associated angina: without angina Qualified Code(s): I25.10 - Atherosclerotic heart disease of [place] coronary artery without angina pectoris (2) S/P right coronary artery (RCA) stent placement Code(s): Z95.5 - PRESENCE OF CORONARY ANGIOPLASTY IMPLANT AND GRAFT (3) Hyperlipidemia Code(s): E78.5 - HYPERLIPIDEMIA, UNSPECIFIED Qualifiers: Hyperlipidemia type: pure hypercholesterolemia Qualified Code(s): E78.00 - Pure hypercholesterolemia, unspecified; E78.0 - Pure hypercholesterolemia (4) RADHIKA (obstructive sleep apnea) Code(s): G47.33 - OBSTRUCTIVE SLEEP APNEA (ADULT) (PEDIATRIC) (5) Pulmonary hypertension assoc with unclear multi-factorial mechanisms Code(s): I27.29 - OTHER SECONDARY PULMONARY HYPERTENSION (6) Toxic metabolic encephalopathy Code(s): G92 - TOXIC ENCEPHALOPATHY (7) Hypertensive cardiomyopathy Code(s): I11.9 - HYPERTENSIVE HEART DISEASE WITHOUT HEART FAILURE; I43 - CARDIOMYOPATHY IN DISEASES CLASSIFIED ELSEWHERE Qualifiers: Heart failure presence: with heart failure Qualified Code(s): I11.0 - Hypertensive heart disease with heart failure; I43 - Cardiomyopathy in diseases classified elsewhere (8) CHF exacerbation Code(s): I50.9 - HEART FAILURE, UNSPECIFIED Qualifiers: Heart failure type: diastolic Qualified Code(s): I50.33 - Acute on chronic diastolic (congestive) heart failure (9) COPD exacerbation Code(s): J44.1 - CHRONIC OBSTRUCTIVE PULMONARY DISEASE W (ACUTE) EXACERBATION (10) Hypertrophic cardiomyopathy Code(s): I42.2 - OTHER HYPERTROPHIC CARDIOMYOPATHY (11) Atrial flutter with controlled response Code(s): I48.92 - UNSPECIFIED ATRIAL FLUTTER Assessment/Plan 11/12/2018 R&LHc Elevated right-sided pressures, moderate pulm HTN, normal PVRI , elevated PCWP, elevated LVEDP, decreased cardiac output, 1 vessel CAD with occluded prox RCA filling via bridging collaterals, hyperdynamic systolic function 11/08/2018 Echo: Mod cLVH with normal systolic function LVEF 60-65%, grade II diastolic dysfunction with elevated filling pressures, hyperdynamic mid cavity with obliteration suggestive of mid cavity obstruction, resting left ventricular outflow tract gradient 25 mmHg increasing to 33 mmHg with Valsalva, mild LAE, normal RV size and fxn, mild-mod MR, mild TR RVSP 33 mmHg 09/22/2017 Dobutamine Myoview: Moderate size inferior perfusion defect wth mild ischemia, normal LVEF 88% 12/16/2018 LE US: No DVT bilaterally, moderate atherosclerosis w/o stenosis bilaterally 12/18/2018 HCT: No acute changes 1. s/p PEA arrest referable to 2. Acute on chronic hypercapneic, hypoxemic respiratory failure with toxic metabolic encephelopathy and underlying 3. Acute on chronic diastolic heart failure, mod functional MS and mod pulm HTH 4. Acute exacerbation of COPD 5. OSAS not compliant with cpap 6. 1 vessel CAD h/o RCA stents with demand ischemia 7. Hypertensive heart disease/HOCM of elderly 8. Paroxysmal atrial fib/flutter ([id number]) 9. Hyperlipidemia 10. Sick euthyroid 11. LLE cellulitis 12. CANDY improving P:1. Continue IV diuresis with monitor diuretic response, renal fxn and electrolytes, trops downtrending 2. Vent management per ABG, BD, FIO2 as needed 3. Cardiac MRI as outpatient to evaluate HOCM of elderly 4. Continue Eliquis 5 bid, wean off Levophed for MAP>65 mmHg, resume eplerenone 25 bid, Zetia 10 qd, Lipitor 40 qd, Toprol XL 50 bid, Ranexa 1000 bid, once hemodynamics stabilize 5. Consider cardioversion if compliance with Eliquis is assured, although cpap noncompliance can make it difficult to maintain SR 6. Wound care, empiric Unasyn course
[2018-12-20] MEDS ORDERED: PT OWN MED DRAWER 7, Y5N ONE ×3 (09:57→22:11)
[2018-12-20] MEDS: EPLERENONE 25 MG TABLET PO SCH ×2 (09:57→22:16)
[2018-12-20] MEDS: EZETIMIBE 10 MG TABLET (FP) PO SCH (09:57)
[2018-12-20] MEDS: lamoTRIgine 25 MG TABLET PO SCH (09:58)
--- NOTE | 2018-12-20 10:06 | EKG ---
Test Reason : Blood Pressure : / mmHG Vent. Rate : 062 BPM Atrial Rate : 357 BPM P-R Int : 000 ms QRS Dur : 102 ms QT Int : 454 ms P-R-T Axes : 000 -44 161 degrees QTc Int : 460 ms ATRIAL FIBRILLATION VS, ATRIAL FLUTTER LEFT AXIS DEVIATION VOLTAGE CRITERIA FOR LEFT VENTRICULAR HYPERTROPHY PROLONGED QT ABNORMAL ECG WHEN COMPARED WITH ECG OF 18-DEC-2018 15:20, Confirmed by BRIAN DONG, NETTIE ([id number]) on 12/20/2018 10:06:35 AM Referred By: JEFFREY Confirmed By:NETTIE TORRES MD
--- NOTE | 2018-12-20 10:14 | EKG ---
Test Reason : Blood Pressure : / mmHG Vent. Rate : 073 BPM Atrial Rate : 178 BPM P-R Int : 000 ms QRS Dur : 126 ms QT Int : 454 ms P-R-T Axes : 000 -52 117 degrees QTc Int : 500 ms ATRIAL FIBRILLATION RIGHT BUNDLE BRANCH BLOCK LEFT ANTERIOR FASCICULAR BLOCK BIFASCICULAR BLOCK MINIMAL VOLTAGE CRITERIA FOR LVH, MAY BE NORMAL VARIANT ABNORMAL ECG WHEN COMPARED WITH ECG OF 20-DEC-2018 00:17, (RBBB AND LEFT ANTERIOR FASCICULAR BLOCK) IS NOW PRESENT Confirmed by NETTIE TORRES MD ([id number]) on 12/20/2018 10:14:28 AM [facility] Confirmed By:NETTIE TORRES MD
--- NOTE | 2018-12-20 11:55 | PN ---
Teaching Attending Note Name of Resident: Sheron Richey ATTENDING PHYSICIAN STATEMENT I saw and evaluated the patient. I reviewed the resident's note and discussed the case with the resident. I agree with the resident's findings and plan as documented. SUBJECTIVE:Code 99 called last night. ROSC achieved after 10 mins. was noted to have slow aflutter on monitor prior to code and PEA during the ode. currently intubated OBJECTIVE: Last Vital Signs Temp Pulse Resp BP Pulse Ox 98.2 F 73 16 104/64 100 12/20/18 06:00 12/20/18 08:19 12/20/18 11:42 12/20/18 06:00 12/20/18 08:19 General intubated/sedated, sluggish pupils, +gag reflex CV S1 S2 + Lungs crackles coarse breath sounds anteriorly Abdomen soft NT/ND Extremities 1 + pitting edema B/L LE, erthema to L hallux with skin abrasion. no active oozing. erythema on conteh resolved ASSESSMENT AND PLAN: 73yo M wtih PMH RADHIKA on CPAP, HTN, COPD on 3L Home O2, CHF, CAD s/p stent with current treatment for LE cellulitis brought in by for altered mental status and claimed he had sucidial idealiations. s/p Cardiac arrest and intubated 1. S/p Cardiac arrest- likely results of hypoxia and hypercapnia then cardiac cause. Trop peaked 0.19 after the event. on cardiac monitorin. cardio on board 2. Acute hypoxic hypercapnic respiratory failure- s/p intubation. CO2 now improved. has known severe pulmonary HTN and being treated for acute on chronic diastolic CHF exacerbation. will cont with diuresis. vent management per ICU team. was supposed to start new medication for severe pulm HTN as outpatient. unsure if option at this time during this acute illness. pulmonary on board 3. acute toxic metabolic encephalopathy- likely due to hypercapnia. currently intubated and sedated. 4. Acute on chronic diastolic CHF- remains volume overlaoded. cont with diuresis. monitor electrolytes. keep K >4.5 and Mg >2.5. strict I&O, daily weights. would benefit from cardiac MRI for evaluation of HOCM. cont heart failure regimen 5. LLE cellulitis- failed outpatient therapy. clinically improved. cont unasyn day 5. arterial u/s negative for acute occlusion. no DVT. Cx negative 6. Fall- could be mechanical or in setting of confusion. no repeat episode. 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 doesnot seem to have pain. will hold off as pt can not lie flat for imaging. 7. CANDY- likely pre-renal. improving with diuresis. cont to monitor. avoid nephrotoxic agents 8. afib- currently in aflutter. rate controlled. on eliquis 9. Iron def anemia- no signs of bleeding. no indication for transfusion. on iron supplements 10. RADHIKA on cpap-not compliant at home 11. CAD s/p stent 12. DVT ppx- elqiuis 13. MICU monitoring. spoke with yesterday who wants full code at this time until daughter can arrive from [place]. States her did not want to live on a respirator long term care phlebotomist and interested in trial at this time but does not want trach. will come today to sign MOLST forms The care of this patient involved high complexity decision making to prevent further life threatening deterioration of the patient's condition and/or to evaluate & treat vital organ system(s) failure or risk of failure. 45 mins
--- NOTE | 2018-12-20 13:26 | PN ---
Teaching Attending Note Name of Resident: Ileana Hebert ATTENDING PHYSICIAN STATEMENT I saw and evaluated the patient. I reviewed the resident's note and discussed the case with the resident. I agree with the resident's findings and plan as documented. SUBJECTIVE: Patient seen and examined in the ICU. Intubated and sedated on 100% FiO2. 10mcq NE for hemodynamic support. Intake & Output 12/17/18 12/18/18 12/19/18 12/20/18 23:59 23:59 23:59 23:59 Intake Total 4049 341 3974 Output Total 1000 400 Balance 1710 -60 1420 Weight 210 lb 212 lb 8.41 oz 216 lb 0.848 oz Last Vital Signs Temp Pulse Resp BP Pulse Ox 98.1 F 71 15 89/60 L 100 12/20/18 10:00 12/20/18 12:00 12/20/18 12:00 12/20/18 12:00 12/20/18 08:19 Active Medications Albuterol Sulfate (Ventolin Hfa Inhaler -) 2 puff IH Q4H PRN PRN Reason: SHORT OF BREATH/WHEEZING Albuterol/Ipratropium (Duoneb -) 1 amp NEB RQID [facility] Last Admin: 12/20/18 11:43 Dose: 1 amp Apixaban (Eliquis -) 5 mg PO BID [facility] Last Admin: 12/20/18 09:54 Dose: 5 mg Atorvastatin Calcium (Lipitor -) 40 mg PO HS [facility] Last Admin: 12/20/18 00:53 Dose: 40 mg Ezetimibe (Zetia -) 10 mg PO DAILY [facility] Last Admin: 12/20/18 09:57 Dose: 10 mg Eplerenone (Eplerenone) 25 mg PO BID [facility] Last Admin: 12/20/18 09:57 Dose: 25 mg Ferrous Sulfate (Feosol -) 325 mg PO BIDWM [facility] Last Admin: 12/20/18 08:01 Dose: 325 mg Furosemide (Lasix Injection -) 40 mg IVPUSH BID@0600,1400 [facility] Last Admin: 12/20/18 05:53 Dose: 40 mg Ampicillin Sodium/Sulbactam (Sodium 1.5 gm/ Sodium Chloride) 100 mls @ 200 mls/ hr IVPB Q6H-IV [facility] Last Admin: 12/20/18 08:01 Dose: 200 mls/hr Norepinephrine Bitartrate 8, (000 mcg/ Dextrose) 500 mls @ 10.84 mls/hr IV ASDIR [facility]; Protocol Last Titration: 12/20/18 06:00 Dose: 0.03 mcg/kg/min, 10.84 mls/hr Propofol (Diprivan -) 1,000,000 mcg in 100 mls @ 2.892 mls/hr IVPB TITR [facility]ON[facility]; Protocol Last Admin: 12/20/18 05:55 Dose: 20 mcg/kg/min, 11.568 mls/hr Lamotrigine (Lamictal -) 25 mg PO DAILY [facility] Last Admin: 12/20/18 09:58 Dose: 25 mg Metoprolol Succinate (Toprol Xl -) 50 mg PO BID [facility] Last Admin: 12/20/18 09:54 Dose: 50 mg Olanzapine (Zyprexa -) 2.5 mg PO HS [facility] Last Admin: 12/20/18 00:53 Dose: 2.5 mg Ranolazine (Ranexa -) 1,000 mg PO BID [facility] Last Admin: 12/20/18 09:54 Dose: 1,000 mg GENERAL: A&Ox0, intubated and sedated EYES: PERRLA, (-) Pallor (-) Icterus ENT: Moist mucus membranes NECK: No JVD noted LUNGS: intubated, mechanically ventilated, few rhonchi HEART: irregularly irregular, soft systolic murmur noted on exam, L sided subclavian central line in place ABDOMEN: Soft, nontender, BS present MUSCULOSKELETAL: No CVA Tenderness EXTREMITIES: 2+ pulses, 2+ pitting edema noted NEUROLOGICAL: Sedated Laboratory Results - last 24 hr 12/19/18 12/19/18 12/19/18 16:51 22:23 22:23 WBC 8.1 RBC 2.99 L Hgb 9.8 L Hct 30.0 L MCV 100.4 H MCH 32.9 MCHC 32.8 RDW 15.7 Plt Count 151 D MPV 9.0 PT with INR INR Anticoagulation Therapy No Result Required. Puncture Site Left radial ABG pH 7.35 ABG pCO2 at Pt Temp 75.4 H* ABG pO2 at Pt Temp 73.2 L ABG HCO3 40.5 H ABG O2 Sat (Measured) 93.4 L ABG O2 Content 13.7 L ABG Base Excess 12.7 H Dante Test Positive O2 Delivery Device Bipap Oxygen Flow Rate No Result Required. Vent Mode No Result Required. Vent Rate 16 Mechanical Rate No Result Required. PEEP Pressure Support Vent 10/5 Sodium 142 Potassium 4.4 Chloride 98 Carbon Dioxide 40 H Anion Gap 4 L BUN 47.1 H Creatinine 1.4 H Est GFR (CKD-EPI)AfAm 57.76 Est GFR (CKD-EPI)NonAf 49.84 Random Glucose 118 H Lactic Acid Calcium 8.1 L Phosphorus 3.0 Magnesium 2.3 Total Bilirubin 0.6 AST 34 ALT 56 Alkaline Phosphatase 60 Creatine Kinase 76 Troponin I 0.19 H Total Protein 5.6 L Albumin 3.0 L 12/19/18 12/19/18 12/19/18 22:23 22:23 22:35 WBC RBC Hgb Hct MCV MCH MCHC RDW Plt Count MPV PT with INR 14.30 H INR 1.21 H Anticoagulation Therapy No Result Required. Puncture Site Right radial ABG pH 7.33 L ABG pCO2 at Pt Temp 78.8 H* ABG pO2 at Pt Temp 27.4 L* ABG HCO3 40.7 H ABG O2 Sat (Measured) 38.8 L ABG O2 Content 5.5 L* ABG Base Excess 12.6 H Dante Test Positive O2 Delivery Device Vent Oxygen Flow Rate 100 Vent Mode A/c Vent Rate 14 Mechanical Rate 100 PEEP 5.0 Pressure Support Vent No Result Required. Sodium Potassium Chloride Carbon Dioxide Anion Gap BUN Creatinine Est GFR (CKD-EPI)AfAm Est GFR (CKD-EPI)NonAf Random Glucose Lactic Acid 0.9 Calcium Phosphorus Magnesium Total Bilirubin AST ALT Alkaline Phosphatase Creatine Kinase Troponin I Total Protein Albumin 12/20/18 12/20/18 12/20/18 03:50 05:54 06:30 WBC 8.3 RBC 2.86 L Hgb 9.6 L Hct 28.6 L MCV 100.0 H MCH 33.4 MCHC 33.4 RDW 15.6 Plt Count 164 MPV 8.9 PT with INR INR Anticoagulation Therapy Puncture Site Left brachial ABG pH 7.48 H ABG pCO2 at Pt Temp 52.9 H ABG pO2 at Pt Temp 78.1 L ABG HCO3 39.2 H ABG O2 Sat (Measured) 96.4 ABG O2 Content 13.7 L ABG Base Excess 13.9 H Dante Test Positive O2 Delivery Device Vent Oxygen Flow Rate 60% Vent Mode A/c Vent Rate 16 Mechanical Rate Yes PEEP Pressure Support Vent 500 Sodium 142 Potassium 4.5 Chloride 98 Carbon Dioxide 41 H Anion Gap 3 L BUN 45.3 H Creatinine 1.2 Est GFR (CKD-EPI)AfAm 69.60 Est GFR (CKD-EPI)NonAf 60.05 Random Glucose 111 H Lactic Acid Calcium 8.2 L Phosphorus Magnesium Total Bilirubin 0.8 AST 31 ALT 51 Alkaline Phosphatase 59 Creatine Kinase Troponin I 0.17 H Total Protein 5.5 L Albumin 2.9 L ASSESSMENT/PLAN: Acute CP arrest R/O ROBERT O2 dependent COPD Pulmonary hypertension Sleep apnea CHFpEF (60-65%) Hypertension Hyperlipidemia CAD s/p right coronary artery stent Acute exacerbation of COPD Decompensated CHF LE cellulitis Increase PEEP to 7 cm H2O Wean FiO2 ARDS vent strategy D/C IVF Diuresis with Lasix BID Strict I & O BD TX ECHO Monitor off systemic steroids for now Daily weights Daily sedation vacation to assess mental status Start enteral feeds Requires ICU monitoring Dr Gaming Critical care time spent in reviewing chart, evaluating patient and formulating plan - 36 minutes.
--- NOTE | 2018-12-20 13:41 | PN ---
Physical Exam: SUBJECTIVE: Patient seen and examined at bedside. Overnight the patient had sustained PEA arrest due to hypercapneic, hypoxemic respiratory failure, 10 min ROSC with 2 doses of epinephrine administered. Now in rate-controlled afib. He was intubated and brought to the ICU. A subclavian central venous catheter was placed early this morning. Patient was noted to be hypotensive with MAPs to the 50s, which improved after 1 fluid bolus. Per day team, patient was responding meaningfully with arms/legs and decision was made not to begin targeted temperature management. OBJECTIVE: Vital Signs Period Temp Pulse Resp BP Sys/Govea Pulse Ox Last 24 Hr 98.1 F-98.4 F 56-89 14-25 64-126/41-83 96-100 GENERAL: A&Ox0, intubated and sedated, responds to pain HEAD: Normal with no signs of trauma. EYES: PERRL, unable to assess extraoccular eye movement, sclera anicteric, conjunctiva clear. ENT: moist mucous membranes. NECK: Trachea midline, +gag reflex LUNGS: intubated, mechanically ventilated and has mechanical breath sounds HEART: irregularly irregular rate and rhythm, S1, S2 without murmur, rub or gallop, L sided subclavian central line in place ABDOMEN: Soft, nontender, BS present EXTREMITIES: 2+ pulses, 1 + pitting edema bilateral LE NEUROLOGICAL: unable to assess Laboratory Results - last 24 hr 12/19/18 12/19/18 12/19/18 16:51 22:23 22:23 WBC 8.1 RBC 2.99 L Hgb 9.8 L Hct 30.0 L MCV 100.4 H MCH 32.9 MCHC 32.8 RDW 15.7 Plt Count 151 D MPV 9.0 PT with INR INR Anticoagulation Therapy No Result Required. Puncture Site Left radial ABG pH 7.35 ABG pCO2 at Pt Temp 75.4 H* ABG pO2 at Pt Temp 73.2 L ABG HCO3 40.5 H ABG O2 Sat (Measured) 93.4 L ABG O2 Content 13.7 L ABG Base Excess 12.7 H Dante Test Positive O2 Delivery Device Bipap Oxygen Flow Rate No Result Required. Vent Mode No Result Required. Vent Rate 16 Mechanical Rate No Result Required. PEEP Pressure Support Vent 10/5 Sodium 142 Potassium 4.4 Chloride 98 Carbon Dioxide 40 H Anion Gap 4 L BUN 47.1 H Creatinine 1.4 H Est GFR (CKD-EPI)AfAm 57.76 Est GFR (CKD-EPI)NonAf 49.84 Random Glucose 118 H Lactic Acid Calcium 8.1 L Phosphorus 3.0 Magnesium 2.3 Total Bilirubin 0.6 AST 34 ALT 56 Alkaline Phosphatase 60 Creatine Kinase 76 Troponin I 0.19 H Total Protein 5.6 L Albumin 3.0 L 12/19/18 12/19/18 12/19/18 22:23 22:23 22:35 WBC RBC Hgb Hct MCV MCH MCHC RDW Plt Count MPV PT with INR 14.30 H INR 1.21 H Anticoagulation Therapy No Result Required. Puncture Site Right radial ABG pH 7.33 L ABG pCO2 at Pt Temp 78.8 H* ABG pO2 at Pt Temp 27.4 L* ABG HCO3 40.7 H ABG O2 Sat (Measured) 38.8 L ABG O2 Content 5.5 L* ABG Base Excess 12.6 H Dante Test Positive O2 Delivery Device Vent Oxygen Flow Rate 100 Vent Mode A/c Vent Rate 14 Mechanical Rate 100 PEEP 5.0 Pressure Support Vent No Result Required. Sodium Potassium Chloride Carbon Dioxide Anion Gap BUN Creatinine Est GFR (CKD-EPI)AfAm Est GFR (CKD-EPI)NonAf Random Glucose Lactic Acid 0.9 Calcium Phosphorus Magnesium Total Bilirubin AST ALT Alkaline Phosphatase Creatine Kinase Troponin I Total Protein Albumin 12/20/18 12/20/18 12/20/18 03:50 05:54 06:30 WBC 8.3 RBC 2.86 L Hgb 9.6 L Hct 28.6 L MCV 100.0 H MCH 33.4 MCHC 33.4 RDW 15.6 Plt Count 164 MPV 8.9 PT with INR INR Anticoagulation Therapy Puncture Site Left brachial ABG pH 7.48 H ABG pCO2 at Pt Temp 52.9 H ABG pO2 at Pt Temp 78.1 L ABG HCO3 39.2 H ABG O2 Sat (Measured) 96.4 ABG O2 Content 13.7 L ABG Base Excess 13.9 H Dante Test Positive O2 Delivery Device Vent Oxygen Flow Rate 60% Vent Mode A/c Vent Rate 16 Mechanical Rate Yes PEEP Pressure Support Vent 500 Sodium 142 Potassium 4.5 Chloride 98 Carbon Dioxide 41 H Anion Gap 3 L BUN 45.3 H Creatinine 1.2 Est GFR (CKD-EPI)AfAm 69.60 Est GFR (CKD-EPI)NonAf 60.05 Random Glucose 111 H Lactic Acid Calcium 8.2 L Phosphorus Magnesium Total Bilirubin 0.8 AST 31 ALT 51 Alkaline Phosphatase 59 Creatine Kinase Troponin I 0.17 H Total Protein 5.5 L Albumin 2.9 L Active Medications Generic Name Dose Route Start Last Admin Trade Name Freq PRN Reason Stop Dose Admin Albuterol Sulfate 2 puff 12/15/18 20:10 Ventolin Hfa Inhaler - IH Q4H PRN SHORT OF BREATH/WHEEZING Albuterol/Ipratropium 1 amp 12/16/18 20:30 12/20/18 11:43 Duoneb - NEB 1 amp RQID [facility]ON[facility] Administration Apixaban 5 mg 12/19/18 22:00 12/20/18 09:54 Eliquis - PO 5 mg BID [facility]ON[facility] Administration Atorvastatin Calcium 40 mg 12/15/18 22:00 12/20/18 00:53 Lipitor - PO 40 mg HS [facility]ON[facility] Administration Ezetimibe 10 mg 12/16/18 10:00 12/20/18 09:57 Zetia - PO 10 mg DAILY [facility]ON[facility] Administration Eplerenone 25 mg 12/15/18 22:00 12/20/18 09:57 Eplerenone PO 25 mg BID [facility]ON[facility] Administration Ferrous Sulfate 325 mg 12/17/18 08:00 12/20/18 08:01 Feosol - PO 325 mg BIDWM [facility]ON[facility] Administration Furosemide 40 mg 12/19/18 14:00 12/20/18 05:53 Lasix Injection - IVPUSH 40 mg BID@0600,1400 [facility] Administration Ampicillin Sodium/Sulbactam 100 mls @ 200 mls/hr 12/16/18 15:00 12/20/18 08: 01 Sodium 1.5 gm/ Sodium Chloride IVPB 200 mls/hr Q6H-IV [facility] Administration Norepinephrine Bitartrate 8, 500 mls @ 10.84 mls/hr 12/19/18 21:00 12/20/18 06:00 000 mcg/ Dextrose IV 0.03 mcg/kg/min ASDIR [facility]ON[facility] 10.84 mls/hr Titration Protocol 0.03 MCG/KG/MIN Propofol 1,000,000 mcg in 100 mls @ 2.892 mls/hr 12/19/18 23:30 12/20/18 05: 55 Diprivan - IVPB 20 mcg/kg/min TITR JONH 11.568 mls/hr Administration Protocol 5 MCG/KG/MIN Lamotrigine 25 mg 12/16/18 10:00 12/20/18 09:58 Lamictal - PO 25 mg DAILY [facility]ON[facility] Administration Metoprolol Succinate 50 mg 12/15/18 22:00 12/20/18 09:54 Toprol Xl - PO 50 mg BID [facility]ON[facility] Administration Olanzapine 2.5 mg 12/17/18 22:00 12/20/18 00:53 Zyprexa - PO 2.5 mg HS [facility]ON[facility] Administration Ranolazine 1,000 mg 12/15/18 22:00 12/20/18 09:54 Ranexa - PO 1,000 mg BID [facility]ON[facility] Administration ASSESSMENT/PLAN: 73 year old male with a medical history of COPD (on home O2), pulmonary hypertension, sleep apnea, CHFpEF (60-65%), hypertension, hyperlipidemia, CAD s/ p right coronary artery stent presented for weakness and somnolence, admitted for treatment of hypoxic, hypercapnic respiratory failure 2/2 COPD/CHF exacerbation is transferred to ICU s/p cardiac arrest. Neurological -intubated and sedated on propofol, responds to pain -OG tube was inserted -continue zyprexa -Will attempt to wean sedation to assess mental status today Cardiovascular -Cardiac Arrest: regained ROSC after 10 minutes and 2 rounds of epinephrine. Most likely cause of arrest is hypoxia/hypercapnia due to non-compliance with non-invasive O2 delivery, however we will evaluate for alternative causes of arrest -chest X ray showing congestive changes/ atelectasis -EKG ordered - afib with no new ischemic changes from prior EKG -subclavian line was placed -On norepinephrine drip (10.8) continue to try and wean -Keep MAPS > 65 -continue to diurese with lasix/eplerenone monitor diuretic response, renal fxn and electrolytes -Repeat Echo ordered -continue ranolazine -continue ezetimibe and atorvastatin -patient appears to be currently in atrial fibrillation on monitor, will confirm on repeat EKG -continue eliquis 5 bid -resume eplerenone 25 bid, Zetia 10 qd, Lipitor 40 qd, Toprol XL 50 bid, Ranexa 1000 bid, once hemodynamics stabilize -troponinemia likely 2/2 cardiac arrest and hypoxia -> now down trending -strict I&O -daily weights. -Per Dr. Garvin; Consider cardioversion if compliance with Eliquis is assured, although cpap noncompliance can make it difficult to maintain SR -Dr. Garvin following, appreciate recommendations Pulmonary -intubated and sedated; ventilator settings as follows: TV 500, RR 14, FiO2 100% , PEEP 5 -increased PEEP to 7 -will decrease FiO2 to 44% -F/U CVP -Will wean sedation to assess mental status today Gastrointestinal -no acute changes -stable Renal -CANDY improving -avoid nephrotoxic agents Infectious Diseases -LLE cellulitis, continue unasyn day 5 Wound care FEN -s/p 1 L NS, will give maintenance fluids -replete prn keep K >4.5 and Mg >2.5. -NPO while intubated Prophylaxis -on eliquis Disposition -monitor in ICU Per Dr. Griffin' note, the patient's was spoken to and stated she wants the patient to be full code until her daughter can arrive from [place]. States her did not want to live on a respirator mcc and interested in trial at this time but does not want trach. will sign MOLST forms Visit type - Emergency Visit Emergency Visit: Yes ED Registration Date: 12/15/18 Care time: The patient presented to the Emergency Department on the above date and was hospitalized for further evaluation of their emergent condition. - New Patient This patient is new to me today: Yes Date on this admission: 12/20/18 - Critical Care Critical Care patient: Yes Total Critical Care Time (in minutes): 40 Critical Care Statement: The care of this patient involved high complexity decision making to prevent further life threatening deterioration of the patient 's condition and/or to evaluate & treat vital organ system(s) failure or risk of failure. ATTENDING PHYSICIAN STATEMENT I saw and evaluated the patient. I reviewed the resident's note and discussed the case with the resident. I agree with the resident's findings and plan as documented. SUBJECTIVE: OBJECTIVE: ASSESSMENT AND PLAN:
--- NOTE | 2018-12-20 15:31 | ECHO ---
Name: TRISTA HOOVER Exam:Adult Echocardiogram Study Date: 12/20/2018 01:56 PM Age: 73 yrs Reason For Study: CHF Height: 68 in Weight: 216 lb BSA: 2.1 m2 MMode/2D Measurements & Calculations IVSd: 0.94 cm Ao root diam: 2.5 cm LVIDd: 3.3 cm LA dimension: 3.9 cm LVIDs: 1.8 cm LVPWd: 0.95 cm EDV(Teich): 45.0 ml LVOT diam: 2.0 cm ESV(Teich): 9.7 ml LAV (MOD-bp): 105.0 ml Doppler Measurements & Calculations MV E max aj: 181.0 cm/sec Ao V2 max: 214.0 cm/sec MV A max aj: 41.3 cm/sec Ao max P.3 mmHg MV E/A: 4.4 Ao V2 mean: 145.0 cm/sec MV dec time: 0.35 sec Ao mean P.0 mmHg Ao V2 VTI: 41.5 cm AI P1/2t: 224.4 msec MICHAEL(V,D): 3.0 cm2 AI max aj: 140.0 cm/sec LV V1 max P.8 mmHg AI max P.8 mmHg LV V1 max: 198.5 cm/sec AI dec slope: 182.0 cm/sec2 MR max aj: 491.0 cm/sec PA V2 max: 107.0 cm/sec MR max P.4 mmHg PA max P.6 mmHg Med Peak E' Aj: 3.9 cm/sec PI Vmax: 118.0 cm/sec Med E/e': 46.2 Lat Peak E' Aj: 3.9 cm/sec Lat E/e': 46.2 Procedure A complete two-dimensional transthoracic echocardiogram was performed (2D, M-mode, Doppler and color flow Doppler). Technically limited study. Left Ventricle The left ventricle is normal in size. Mid cavity obliteration is seen. Gradient was not obtained. Lef t ventricular systolic function is normal. Ejection Fraction = 60-65%. No regional wall motion abnormal ities noted. Right Ventricle The right ventricle is normal size. The right ventricular systolic function is normal. Atria The left atrium is severely dilated. LA volume index is 50 ml/m2. Right atrial size is normal. Mitral Valve There is severe mitral annular calcification. There is mild mitral regurgitation. Tricuspid Valve The tricuspid valve is normal in structure and function. There is mild tricuspid regurgitation. Aortic Valve There is moderate aortic sclerosis.;. No aortic regurgitation is present. Pulmonic Valve The pulmonic valve is not well visualized. Great Vessels The aortic root is normal size. Pericardium/Pleura There is no pericardial effusion. Interpretation Summary Technically limited study The left ventricle is normal in size. Left ventricular systolic function is normal. No regional wall motion abnormalities noted. Ejection Fraction = 60-65%. Mid cavity obliteration is seen. Gradient was not obtained The right ventricular systolic function is normal. The left atrium is severely dilated. LA volume index is 50 ml/m2 Right atrial size is normal. There is severe mitral annular calcification. There is mild mitral regurgitation. There is mild tricuspid regurgitation. There is moderate aortic sclerosis.; No aortic regurgitation is present. There is no pericardial effusion. Meliton Garcia MD 12/20/2018 03:31 PM
--- NOTE | 2018-12-20 15:49 | PN ---
Physical Exam: SUBJECTIVE: Patient seen and examined at bedside. pt is intubated and sedated. OBJECTIVE: Vital Signs Period Temp Pulse Resp BP Sys/Govea Pulse Ox Last 24 Hr 98.1 F-98.4 F 56-89 14-25 64-126/41-83 96-100 GENERAL: The patient is intubated and sedated EYES:Pupils reactive to light LUNGS: vent sounds equal b/l HEART: S1, S2 without murmur, rub or gallop. ABDOMEN: Soft, nontender, nondistended, normoactive bowel sounds EXTREMITIES: 2+ pulses, warm, well-perfused, + B/L edema, L LE erythema improving Laboratory Last Values WBC 8.3 K/mm3 (4.0-10.0) 12/20/18 05:54 RBC 2.86 M/mm3 (4.00-5.60) L 12/20/18 05:54 Hgb 9.6 GM/dL (11.7-16.9) L 12/20/18 05:54 Hct 28.6 % (35.4-49) L 12/20/18 05:54 MCV 100.0 fl (80-96) H 12/20/18 05:54 MCH 33.4 pg (25.7-33.7) 12/20/18 05:54 MCHC 33.4 g/dl (32.0-35.9) 12/20/18 05:54 RDW 15.6 % (11.9-15.9) 12/20/18 05:54 Plt Count 164 K/MM3 (134-434) 12/20/18 05:54 MPV 8.9 fl (7.5-11.1) 12/20/18 05:54 Absolute Neuts (auto) 8.2 K/mm3 (1.5-8.0) H 12/18/18 05:38 Neutrophils % 87.8 % (42.8-82.8) H 12/18/18 05:38 Lymphocytes % 5.9 % (8-40) L 12/18/18 05:38 Monocytes % 5.8 % (3.8-10.2) 12/18/18 05:38 Eosinophils % 0.3 % (0-4.5) 12/18/18 05:38 Basophils % 0.2 % (0-2.0) 12/18/18 05:38 Nucleated RBC % 0 % (0-0) 12/18/18 05:38 ESR 25 mm/hr (0-20) H 12/15/18 21:40 Retic Count 1.69 % (0.5-1.5) H 12/15/18 05:52 PT with INR 14.30 SEC (9.7-13.0) H 12/19/18 22:23 INR 1.21 (0.83-1.09) H 12/19/18 22:23 Anticoagulation Therapy No Result Required. 12/19/18 22:35 Puncture Site Left brachial 12/20/18 06:30 ABG pH 7.48 (7.35-7.45) H 12/20/18 06:30 ABG pCO2 at Pt Temp 52.9 mmHg (35-45) H 12/20/18 06:30 ABG pO2 at Pt Temp 78.1 mmHg (80-105) L 12/20/18 06:30 ABG HCO3 39.2 mmol/L (22-27) H 12/20/18 06:30 ABG O2 Sat (Measured) 96.4 % (95-98) 12/20/18 06:30 ABG O2 Content 13.7 % vol (15-22) L 12/20/18 06:30 ABG Base Excess 13.9 meq/l (-2-2) H 12/20/18 06:30 Dante Test Positive 12/20/18 06:30 Carboxyhemoglobin 1.9 % (0-2) 12/15/18 16:51 Methemoglobin 0.5 % (0-2) 12/15/18 16:51 O2 Delivery Device Vent 12/20/18 06:30 Oxygen Flow Rate 60% 12/20/18 06:30 Vent Mode A/c 12/20/18 06:30 Vent Rate 16 12/20/18 06:30 Mechanical Rate Yes 12/20/18 06:30 PEEP 5.0 cmH2O 12/19/18 22:35 Pressure Support Vent 500 12/20/18 06:30 Sodium 142 mmol/L (136-145) 12/20/18 03:50 Potassium 4.5 mmol/L (3.5-5.1) 12/20/18 03:50 Chloride 98 mmol/L (98-107) 12/20/18 03:50 Carbon Dioxide 41 mmol/L (21-32) H 12/20/18 03:50 Anion Gap 3 MMOL/L (8-16) L 12/20/18 03:50 BUN 45.3 mg/dL (7-18) H 12/20/18 03:50 Creatinine 1.2 mg/dL (0.55-1.3) 12/20/18 03:50 Est GFR (CKD-EPI)AfAm 69.60 12/20/18 03:50 Est GFR (CKD-EPI)NonAf 60.05 12/20/18 03:50 Random Glucose 111 mg/dL (74-106) H 12/20/18 03:50 Hemoglobin A1c % 4.6 % (4.2-6.3) 12/17/18 07:00 Lactic Acid 0.9 mmol/L (0.4-2.0) 12/19/18 22:23 Calcium 8.2 mg/dL (8.5-10.1) L 12/20/18 03:50 Phosphorus 3.0 mg/dL (2.5-4.9) 12/19/18 22:23 Magnesium 2.3 mg/dL (1.8-2.4) 12/19/18 22:23 Iron 38 ug/dL (50-175) L 12/15/18 21:35 TIBC 359 ug/dL (250-450) 12/15/18 21:35 Iron Saturation 10 % (17.5-39) L 12/15/18 21:35 Unsaturated IBC 321 ug/dL (200-275) H 12/15/18 21:35 Transferrin 256 mg/dL (200-370) 12/15/18 05:52 Total Bilirubin 0.8 mg/dL (0.2-1) 12/20/18 03:50 AST 31 U/L (15-37) 12/20/18 03:50 ALT 51 U/L (13-61) 12/20/18 03:50 Alkaline Phosphatase 59 U/L (45-117) 12/20/18 03:50 Creatine Kinase 76 U/L (26-308) 12/19/18 22:23 Troponin I 0.17 ng/ml (0.00-0.05) H 12/20/18 03:50 C-Reactive Protein 1.3 MG/DL (0.00-0.3) H 12/15/18 21:35 B-Natriuretic Peptide 2865.3 pg/ml (5-125) H 12/15/18 17:10 Total Protein 5.5 g/dl (6.4-8.2) L 12/20/18 03:50 Albumin 2.9 g/dl (3.4-5.0) L 12/20/18 03:50 Triglycerides 86 mg/dL (0-150) 12/17/18 05:37 Cholesterol 186 mg/dL (50-200) 12/17/18 05:37 Total LDL Cholesterol 127 mg/dL (5-100) H 12/17/18 05:37 HDL Cholesterol 46 mg/dL (40-60) 12/17/18 05:37 Vitamin B12 405 pg/ml (193-986) 12/15/18 21:35 Serum Folate 19 ng/mL (3.1-17.5) H 12/15/18 21:35 TSH 0.71 uIU/ml (0.358-3.74) D 12/19/18 05:23 Free T4 0.73 ng/dl (0.76-1.16) L 12/17/18 05:37 Total T3 52.00 ng/dl (71-180) L 12/17/18 09:00 Urine Color Yellow 12/15/18 20:15 Urine Appearance Clear 12/15/18 20:15 Urine pH 6.0 (5.0-8.0) 12/15/18 20:15 Ur Specific [place] 1.012 (1.010-1.035) 12/15/18 20:15 Urine Protein Negative (NEGATIVE) 12/15/18 20:15 Urine Glucose (UA) Negative (NEGATIVE) 12/15/18 20:15 Urine Ketones Negative (NEGATIVE) 12/15/18 20:15 Urine Blood Negative (NEGATIVE) 12/15/18 20:15 Urine Nitrite Negative (NEGATIVE) 12/15/18 20:15 Urine Bilirubin Negative (NEGATIVE) 12/15/18 20:15 Urine Urobilinogen 1.0 mg/dL (0.2-1.0) 12/15/18 20:15 Ur Leukocyte Esterase Negative (NEGATIVE) 12/15/18 20:15 Active Medications Albuterol Sulfate (Ventolin Hfa Inhaler -) 2 puff IH Q4H PRN PRN Reason: SHORT OF BREATH/WHEEZING Albuterol/Ipratropium (Duoneb -) 1 amp NEB RQID [facility] Last Admin: 12/20/18 11:43 Dose: 1 amp Apixaban (Eliquis -) 5 mg PO BID [facility] Last Admin: 12/20/18 09:54 Dose: 5 mg Atorvastatin Calcium (Lipitor -) 40 mg PO HS [facility] Last Admin: 12/20/18 00:53 Dose: 40 mg Ezetimibe (Zetia -) 10 mg PO DAILY [facility] Last Admin: 12/20/18 09:57 Dose: 10 mg Eplerenone (Eplerenone) 25 mg PO BID [facility] Last Admin: 12/20/18 09:57 Dose: 25 mg Ferrous Sulfate (Feosol -) 325 mg PO BIDWM [facility] Last Admin: 12/20/18 08:01 Dose: 325 mg Furosemide (Lasix Injection -) 40 mg IVPUSH BID@0600,1400 [facility] Last Admin: 12/20/18 13:53 Dose: 40 mg Ampicillin Sodium/Sulbactam (Sodium 1.5 gm/ Sodium Chloride) 100 mls @ 200 mls/ hr IVPB Q6H-IV [facility] Last Admin: 12/20/18 14:06 Dose: 200 mls/hr Norepinephrine Bitartrate 8, (000 mcg/ Dextrose) 500 mls @ 10.84 mls/hr IV ASDIR [facility]; Protocol Last Titration: 12/20/18 06:00 Dose: 0.03 mcg/kg/min, 10.84 mls/hr Propofol (Diprivan -) 1,000,000 mcg in 100 mls @ 2.892 mls/hr IVPB TITR [facility]; Protocol Last Admin: 12/20/18 05:55 Dose: 20 mcg/kg/min, 11.568 mls/hr Lamotrigine (Lamictal -) 25 mg PO DAILY [facility] Last Admin: 12/20/18 09:58 Dose: 25 mg Metoprolol Succinate (Toprol Xl -) 50 mg PO BID [facility] Last Admin: 12/20/18 09:54 Dose: 50 mg Olanzapine (Zyprexa -) 2.5 mg PO HS [facility] Last Admin: 12/20/18 00:53 Dose: 2.5 mg Ranolazine (Ranexa -) 1,000 mg PO BID [facility] Last Admin: 12/20/18 09:54 Dose: 1,000 mg ASSESSMENT/PLAN: 73 yo M PMH COPD on 4L home O2, pulmonary HTN, RADHIKA, diastolic heart failure, HTN , HLD, CAD s/p RCA DAVID (2003,2004,2019) p/w altered mental status and cellulitis in LLE. Pt was being treated by PMD for cellulitis. During the hospital course, pt had claimed suicidal ideation. In ED, pt had ABG showing chronic CO2 retention. Yesterday, code 99 was called. pt was in cardiac arrest for around 10 min x 2 Epi. ROSC was achieved. Pt is now intubated and sedated s/p cardiac arrest -possibly 2/2 acute on chronic diastolic CHF vs COPD -Trop peak to 0.19 -Pt had episodes of A.Fib & a. flutter on the tele monitor. Acute Hypoxic Hypercapmic Respiratory Failure - pt with known severe pulm htn -ABG showing CO2 retention, CO2 improving -pt currently Intubated -Increase PEEP to 7 cm H2O , Wean FiO2 as per ICU recs Acute on chronic heart failure with preserved EF -fluid overload -c/w lasix BID -ECHO : preserved EF, severely dilated LA, severe mitral annular calcification, moderate -monitor I/Os -Daily Weights AFib/ Aflutter - on eliquis -cardio following the case L LE Cellulitis -XRay negative -pt completed augmentin x5d prior to admission. -c/w unasyn (day 5) -erythema improving -Doppler neg for DVT -Doppler indicated B/L arterial pulse Iron def Anemia -no signs of bleeding -iron supplements RADHIKA -recommending CPAP, pt was not compliant at home Acute Metabolic encephalopathy -pt currently sedated -possibly 2/2 hypercapnea -recommended use of CPAP at night -pt denied any thoughts to hurt himself or others. -psych is consulted DVT ppx: Eliquis Dispo: continue ICU monitoring , pt Full Code Visit type - Emergency Visit Emergency Visit: No - New Patient This patient is new to me today: No - Critical Care Critical Care patient: Yes Total Critical Care Time (in minutes): 36 Critical Care Statement: The care of this patient involved high complexity decision making to prevent further life threatening deterioration of the patient 's condition and/or to evaluate & treat vital organ system(s) failure or risk of failure. - Discharge Referral Referred to [facility] Med [facility].: No ATTENDING PHYSICIAN STATEMENT I saw and evaluated the patient. I reviewed the resident's note and discussed the case with the resident. I agree with the resident's findings and plan as documented. SUBJECTIVE: OBJECTIVE: ASSESSMENT AND PLAN:
[2018-12-21] MEDS ORDERED: SODIUM CHLORIDE 100 ML IVPB ONE ×4 (02:37→21:23)
[2018-12-21] MEDS ORDERED: AMPICILLIN NA/SULBACTAM NA 1.5 GM VIAL ONE ×4 (02:37→21:23)
[2018-12-21] MEDS: AMPICILLIN NA/SULBACTAM NA 1.5 GM in SODIUM CHLORIDE 100 ML IVPB SCH ×4 (02:49→21:50)
[2018-12-21] MEDS: FUROSEMIDE 40 MG/4 ML INJECTABLE VIAL IVPUSH SCH ×2 (06:01→13:04)
[2018-12-21] MEDS: PROPOFOL 1,000,000 MCG/100 ML VIAL IVPB SCH (06:15)
[2018-12-21] MEDS ORDERED: PT OWN MED DRAWER 7, Y5N ONE (07:18)
[2018-12-21 07:32] LABS: HEMATOCRIT 30.5 % (35.4-49); HEMOGLOBIN 10.3 GM/dL (11.7-16.9); MCH 33.4 pg (25.7-33.7); MCHC 33.9 g/dl (32.0-35.9); MEAN CELL VOLUME 98.7 fl (80-96); MEAN PLT VOLUME 9.3 fl (7.5-11.1); PLATELET COUNT 179 K/MM3 (134-434); RBC 3.08 M/mm3 (4.00-5.60); RDW 15.8 % (11.9-15.9); WHITE BLOOD COUNT 8.3 K/mm3 (4.0-10.0)
[2018-12-21 07:55] LABS: BILIRUBIN,TOTAL 0.9 mg/dL (0.2-1); BLOOD UREA NITROGEN 33.5 mg/dL (7-18); CALCIUM 8.2 mg/dL (8.5-10.1); CREATININE 1.2 mg/dL (0.55-1.3); MAGNESIUM 2.4 mg/dL (1.8-2.4); PHOSPHOROUS 2.5 mg/dL (2.5-4.9); POTASSIUM 3.6 mmol/L (3.5-5.1); TOT PROT 5.6 g/dl (6.4-8.2)
[2018-12-21] MEDS: FERROUS SO4 325 MG TABLET (FP) PO SCH ×2 (08:01→16:39)
[2018-12-21] MEDS: ALBUTEROL SO4 2.5/IPRATROPIUM 0.5 INH SOL 3 ML VIAL.NEB. NEB SCH ×4 (08:17→20:04)
[2018-12-21] MEDS: lamoTRIgine 25 MG TABLET PO SCH (08:59)
[2018-12-21] MEDS: RANOLAZINE E.R. 1,000 MG TABLET (FP) PO SCH ×2 (08:59→22:50)
[2018-12-21] MEDS: EZETIMIBE 10 MG TABLET (FP) PO SCH (09:00)
[2018-12-21] MEDS: EPLERENONE 25 MG TABLET PO SCH ×2 (09:00→21:52)
[2018-12-21] MEDS: APIXABAN 5 MG TABLET PO SCH ×2 (09:08→21:51)
[2018-12-21] MEDS ORDERED: FUROSEMIDE 40 MG/4 ML INJECTABLE VIAL IVPUSH ONE (10:15)
--- NOTE | 2018-12-21 11:41 | PN ---
Progress Note, Physician Chief Complaint: Events noted Remains intubated Awake History of Present Illness: Patient was seen and examined. Awake. Chart was reviewed Mechanical ventilator await extubation - Current Medication List Current Medications: Active Medications Albuterol Sulfate (Ventolin Hfa Inhaler -) 2 puff IH Q4H PRN PRN Reason: SHORT OF BREATH/WHEEZING Albuterol/Ipratropium (Duoneb -) 1 amp NEB RQID [facility] Last Admin: 12/21/18 08:17 Dose: 1 amp Apixaban (Eliquis -) 5 mg PO BID [facility] Last Admin: 12/21/18 09:08 Dose: 5 mg Atorvastatin Calcium (Lipitor -) 40 mg PO HS [facility] Last Admin: 12/20/18 22:16 Dose: 40 mg Ezetimibe (Zetia -) 10 mg PO DAILY [facility] Last Admin: 12/21/18 09:00 Dose: 10 mg Eplerenone (Eplerenone) 25 mg PO BID [facility] Last Admin: 12/21/18 09:00 Dose: 25 mg Ferrous Sulfate (Feosol -) 325 mg PO BIDWM [facility] Last Admin: 12/21/18 08:01 Dose: 325 mg Furosemide (Lasix Injection -) 40 mg IVPUSH BID@0600,1400 [facility] Last Admin: 12/21/18 06:01 Dose: 40 mg Ampicillin Sodium/Sulbactam (Sodium 1.5 gm/ Sodium Chloride) 100 mls @ 200 mls/ hr IVPB Q6H-IV [facility] Last Admin: 12/21/18 08:01 Dose: 200 mls/hr Norepinephrine Bitartrate 8, (000 mcg/ Dextrose) 500 mls @ 10.84 mls/hr IV ASDIR [facility]; Protocol Last Titration: 12/20/18 06:00 Dose: 0.03 mcg/kg/min, 10.84 mls/hr Propofol (Diprivan -) 1,000,000 mcg in 100 mls @ 2.892 mls/hr IVPB TITR [facility]; Protocol Last Admin: 12/21/18 06:15 Dose: 30 mcg/kg/min, 17.352 mls/hr Lamotrigine (Lamictal -) 25 mg PO DAILY [facility] Last Admin: 12/21/18 08:59 Dose: 25 mg Metoprolol Succinate (Toprol Xl -) 50 mg PO BID [facility] Last Admin: 12/21/18 08:59 Dose: 50 mg Olanzapine (Zyprexa -) 2.5 mg PO HS [facility] Last Admin: 12/20/18 22:17 Dose: 2.5 mg Ranolazine (Ranexa -) 1,000 mg PO BID [facility] Last Admin: 12/21/18 08:59 Dose: 1,000 mg - Objective Vital Signs: Vital Signs Temperature 98.4 F 12/21/18 10:00 Pulse Rate 72 12/21/18 10:00 Respiratory Rate 18 12/21/18 10:00 Blood Pressure 115/57 L 12/21/18 10:00 O2 Sat by Pulse Oximetry (%) 97 12/21/18 09:00 Eyes: Yes: PERRL HENT: Yes: Atraumatic Neck: Yes: Supple Cardiovascular: Yes: Pulse Irregular, S1, S2 Respiratory: Yes: Diminished, Mechanically Ventilated Gastrointestinal: Yes: Normal Bowel Sounds, Soft. No: Tenderness Edema: Yes Edema: LLE: Trace, RLE: Trace Labs: CBC, BMP 12/21/18 05:40 12/21/18 05:40 INR, PTT INR 1.21 (0.83-1.09) H 12/19/18 22:23 Problem List - Problems (1) Atrial flutter with controlled response Code(s): I48.92 - UNSPECIFIED ATRIAL FLUTTER (2) CHF exacerbation Code(s): I50.9 - HEART FAILURE, UNSPECIFIED Qualifiers: Heart failure type: diastolic Qualified Code(s): I50.33 - Acute on chronic diastolic (congestive) heart failure (3) COPD exacerbation Code(s): J44.1 - CHRONIC OBSTRUCTIVE PULMONARY DISEASE W (ACUTE) EXACERBATION (4) Coronary artery disease Code(s): I25.10 - ATHSCL HEART DISEASE OF [place] CORONARY ARTERY W/O ANG PCTRS Qualifiers: Coronary Disease-Associated Artery/Lesion type: [place] artery [place] vs. transplanted heart: [place] heart Associated angina: without angina Qualified Code(s): I25.10 - Atherosclerotic heart disease of [place] coronary artery without angina pectoris (5) Hyperlipidemia Code(s): E78.5 - HYPERLIPIDEMIA, UNSPECIFIED Qualifiers: Hyperlipidemia type: pure hypercholesterolemia Qualified Code(s): E78.00 - Pure hypercholesterolemia, unspecified; E78.0 - Pure hypercholesterolemia (6) Hypertensive cardiomyopathy Code(s): I11.9 - HYPERTENSIVE HEART DISEASE WITHOUT HEART FAILURE; I43 - CARDIOMYOPATHY IN DISEASES CLASSIFIED ELSEWHERE Qualifiers: Heart failure presence: with heart failure Qualified Code(s): I11.0 - Hypertensive heart disease with heart failure; I43 - Cardiomyopathy in diseases classified elsewhere (7) Hypertrophic cardiomyopathy Code(s): I42.2 - OTHER HYPERTROPHIC CARDIOMYOPATHY (8) RADHIKA (obstructive sleep apnea) Code(s): G47.33 - OBSTRUCTIVE SLEEP APNEA (ADULT) (PEDIATRIC) (9) Pulmonary hypertension assoc with unclear multi-factorial mechanisms Code(s): I27.29 - OTHER SECONDARY PULMONARY HYPERTENSION (10) S/P right coronary artery (RCA) stent placement Code(s): Z95.5 - PRESENCE OF CORONARY ANGIOPLASTY IMPLANT AND GRAFT Assessment/Plan 1. Post PEA arrest 2. Acute on chronic hypercapneic, hypoxemic respiratory failure with toxic metabolic encephalopathy 3. Acute on chronic diastolic heart failure, moderate functional MS and moderate pulmonary HTN 4. Acute exacerbation of COPD 5. OSAS 6. 1 vessel CAD h/o RCA stent with demand ischemia 7. Hypertensive heart disease/HOCM of elderly 8. Paroxysmal AF/flutter ([id number]) 9. Hyperlipidemia 10. Sick euthyroid syndrome 11. LLE cellulitis 12. CANDY improving PLAN: 1. Continue IV diuresis with monitoring renal function and electrolytes 2. Trend troponin 3. Vent management and expect extubation 4. Cardiac MRI as outpatient to evaluate HOCM of elderly 5. Continue Eliquis 5 mg BID and wean off Levophed for MAP>65 mmHg, resume Eplerenone 25 BID, Zetia 10 mg QD, Lipitor 40 mg QD, Toprol XL 50 mg BID and Ranexa 1000 mg BID as tolerated 6. Consider cardioversion if compliance with Eliquis is assured and if AF persists 7. Wound care and empiric antibiotic course Meliton Garcia MD
--- NOTE | 2018-12-21 11:52 | PN ---
Physical Exam: SUBJECTIVE: Patient seen and examined at bedside. Awake, intubated and following commands. Pressors turned off at 7am, patients BPs/MAPs remained stable during the morning. Patient has active gag reflex and tolerated CPAP well. Plan to extubate to high flow today. OBJECTIVE: Vital Signs Period Temp Pulse Resp BP Sys/Govea Pulse Ox Last 24 Hr 97.8 F-99.0 F 63-73 14-18 89-159/51-76 97-98 GENERAL: Alert and following commands, able to nod head yes and no, intubated, denies any pain HEAD: Normal with no signs of trauma. EYES: PERRL, EOMI bilaterally, sclera anicteric, conjunctiva clear. ENT: moist mucous membranes. NECK: Trachea midline, +gag reflex LUNGS: intubated, on CPAP and has coarse breath sounds HEART: irregularly irregular rate and rhythm, S1, S2 without murmur, rub or gallop, L sided subclavian central line in place ABDOMEN: Soft, nontender, BS present EXTREMITIES: 2+ pulses, 2+ pitting edema bilateral LE Laboratory Results - last 24 hr 12/21/18 12/21/18 12/21/18 05:40 05:40 05:40 WBC 8.3 RBC 3.08 L Hgb 10.3 L Hct 30.5 L MCV 98.7 H MCH 33.4 MCHC 33.9 RDW 15.8 Plt Count 179 MPV 9.3 Sodium 142 Potassium 3.6 Chloride 99 Carbon Dioxide 38 H Anion Gap 5 L BUN 33.5 H Creatinine 1.2 Est GFR (CKD-EPI)AfAm 69.60 Est GFR (CKD-EPI)NonAf 60.05 Random Glucose 127 H Calcium 8.2 L Phosphorus 2.5 Magnesium 2.4 Total Bilirubin 0.9 AST 24 ALT 44 Alkaline Phosphatase 65 Troponin I 0.09 H Total Protein 5.6 L Albumin 3.0 L Active Medications Generic Name Dose Route Start Last Admin Trade Name Freq PRN Reason Stop Dose Admin Albuterol Sulfate 2 puff 12/15/18 20:10 Ventolin Hfa Inhaler - IH Q4H PRN SHORT OF BREATH/WHEEZING Albuterol/Ipratropium 1 amp 12/16/18 20:30 12/21/18 08:17 Duoneb - NEB 1 amp RQID [facility] Administration Apixaban 5 mg 12/19/18 22:00 12/21/18 09:08 Eliquis - PO 5 mg BID [facility] Administration Atorvastatin Calcium 40 mg 12/15/18 22:00 12/20/18 22:16 Lipitor - PO 40 mg HS [facility] Administration Ezetimibe 10 mg 12/16/18 10:00 12/21/18 09:00 Zetia - PO 10 mg DAILY [facility] Administration Eplerenone 25 mg 12/15/18 22:00 12/21/18 09:00 Eplerenone PO 25 mg BID [facility] Administration Ferrous Sulfate 325 mg 12/17/18 08:00 12/21/18 08:01 Feosol - PO 325 mg BIDWM [facility] Administration Furosemide 40 mg 12/19/18 14:00 12/21/18 06:01 Lasix Injection - IVPUSH 40 mg BID@0600,1400 [facility] Administration Ampicillin Sodium/Sulbactam 100 mls @ 200 mls/hr 12/16/18 15:00 12/21/18 08: 01 Sodium 1.5 gm/ Sodium Chloride IVPB 200 mls/hr Q6H-IV [facility] Administration Norepinephrine Bitartrate 8, 500 mls @ 10.84 mls/hr 12/19/18 21:00 12/20/18 06:00 000 mcg/ Dextrose IV 0.03 mcg/kg/min ASDIR [facility] 10.84 mls/hr Titration Protocol 0.03 MCG/KG/MIN Propofol 1,000,000 mcg in 100 mls @ 2.892 mls/hr 12/19/18 23:30 12/21/18 06: 15 Diprivan - IVPB 30 mcg/kg/min TITR [facility] 17.352 mls/hr Administration Protocol 5 MCG/KG/MIN Lamotrigine 25 mg 12/16/18 10:00 12/21/18 08:59 Lamictal - PO 25 mg DAILY [facility] Administration Metoprolol Succinate 50 mg 12/15/18 22:00 12/21/18 08:59 Toprol Xl - PO 50 mg BID [facility] Administration Olanzapine 2.5 mg 12/17/18 22:00 12/20/18 22:17 Zyprexa - PO 2.5 mg HS [facility] Administration Ranolazine 1,000 mg 12/15/18 22:00 12/21/18 08:59 Ranexa - PO 1,000 mg BID [facility] Administration ASSESSMENT/PLAN: 73 year old male with a medical history of COPD (on home O2), pulmonary hypertension, sleep apnea, CHFpEF (60-65%), hypertension, hyperlipidemia, CAD s/ p right coronary artery stent presented for weakness and somnolence, admitted for treatment of hypoxic, hypercapnic respiratory failure 2/2 COPD/CHF exacerbation is transferred to ICU s/p cardiac arrest. Neurological -intubated no sedated, +gag, tolerating CPAP, off pressors, following commands -Plan to extubate to HFNC today (40lpm/40%FiO2) -continue zyprexa Cardiovascular -Cardiac Arrest: regained ROSC after 10 minutes and 2 rounds of epinephrine. Most likely cause of arrest is hypoxia/hypercapnia due to non-compliance with non-invasive O2 delivery, however we will evaluate for alternative causes of arrest -chest X ray showing congestive changes/ atelectasis -EKG ordered - afib with no new ischemic changes from prior EKG -subclavian line was placed -d/c'd norepinephrine drip at 7am this morning, patient's BPs remained stable -Keep MAPS > 65 -continue to diurese with lasix 40mg IVpush BID -Echo showing no wall motion abnormality, EF 60-65%, LA severely dilated -continue ranolazine -continue ezetimibe and atorvastatin -continue eliquis 5 bid -Per Dr. Garcia/Bharathi, consider cardioversion if compliance with Eliquis is assured and if AF persists -resume eplerenone 25 bid, Zetia 10 qd, Lipitor 40 qd, Toprol XL 50 bid, Ranexa 1000 bid, once hemodynamics stabilize -troponinemia likely 2/2 cardiac arrest and hypoxia -> now down trending -strict I&O -daily weights. -Per Dr. Garcia/ Bharathi cardiac MRI as outpatient to evaluate HOCM of elderly -Dr. Garcia/Bharathi following appreciate recommendations Pulmonary -intubated tolerating CPAP, plan to extubate to HFNC (40Lpm/ 40%FiO2) today -F/U CVP Gastrointestinal -no acute changes -stable Renal -CANDY improving -avoid nephrotoxic agents Infectious Diseases -LLE cellulitis, continue unasyn day 6 Wound care FEN -currently diuresing -replete prn keep K >4.5 and Mg >2.5. -NPO for 24h after extubation,PO meds crushed in apple sauce. Speech/swallow eval and appreciate diet recommendations Prophylaxis -on eliquis Disposition -monitor in ICU Per Dr. Griffin' note, the patient's was spoken to and stated she wants the patient to be full code until her daughter can arrive from [place]. States her did not want to live on a respirator residential and interested in trial at this time but does not want trach. will sign MOLST forms. Will continue to monitor in ICU. Visit type - Emergency Visit Emergency Visit: Yes ED Registration Date: 12/15/18 Care time: The patient presented to the Emergency Department on the above date and was hospitalized for further evaluation of their emergent condition. - New Patient This patient is new to me today: No - Critical Care Critical Care patient: Yes Total Critical Care Time (in minutes): 40 Critical Care Statement: The care of this patient involved high complexity decision making to prevent further life threatening deterioration of the patient 's condition and/or to evaluate & treat vital organ system(s) failure or risk of failure. ATTENDING PHYSICIAN STATEMENT I saw and evaluated the patient. I reviewed the resident's note and discussed the case with the resident. I agree with the resident's findings and plan as documented. SUBJECTIVE: OBJECTIVE: ASSESSMENT AND PLAN:
--- NOTE | 2018-12-21 12:37 | CONSULT ---
Admitting History and Physical - Admission History of Present Illness: Per EMR- 73 year old male with a medical history of COPD (on home O2), pulmonary hypertension, sleep apnea, CHFpEF (60-65%), hypertension, hyperlipidemia, CAD s/ p right coronary artery stent presented for weakness and somnolence. Per primary team, reported that he is not compliant with medication and medical recommendation and does not use CPAP at night. He was admitted for the treatment of acute on chronic hypercapnic respiratory failure secondary to combination of COPD and CHF exacerbation. He was treated with steroids, O2, CPAP and diuresis during the early course of his hospitalization. Developed toxic metabolic encephalopathy a couple of days into the admission attributed to hypoxemic/hypercapnic respiratory failure, and patient also developed paroxysmal atrial flutter, for which his aspirin was switched to eliquis 5mg BID. Brandan, a code 99 was called for cardiac arrest. Patient reportedly was given 2 rounds of epinephrine and ROSC was achieved after around 10 minutes. He was intubated and brought to the ICU. A subclavian central venous catheter was placed during the day shift. Patient was noted to be hypotensive with MAPs to the 50s, which improved after 1 fluid bolus. Per day team, patient was responding meaningfully with arms/legs and decision was made not to begin targeted temperature management. Self extubated this am. Extubation was planned. On highflo. Selected Entries 12/17/18 12/17/18 12/18/18 11:56 20:46 11:48 Breakfast 100% 100% Diet Tolerated Well Fair Well Supper 50% 12/18/18 12/19/18 20:58 11:59 Breakfast 75% Diet Tolerated Fair Well Supper 50% Laboratory Tests 12/18/18 12/19/18 12/20/18 05:38 22:23 05:54 WBC 9.4 8.1 8.3 12/21/18 05:40 WBC 8.3 History Source: Medical Record Limitations to Obtaining History: Clinical Condition - Smoking History Smoking history: Never smoked Aproximately how many cigarettes per day: 10 - Alcohol/Substance Use Hx Alcohol Use: No History - Admission Reason For Visit: ACUTE ON CHRONIC CONGESTIVE HEART FAILURE - Diagnostics X-ray: Report Reviewed - General Mental Status: Alert and Oriented, Awake and Alert, Able to Follow Commands, Forgetful Attention: Intact Ability to Follow Directions: Good Head/Neck Control: Fair - Hearing Hearing: Normal Hearing Aide: No With Patient: No Speech Evaluation - Communication Primary Language: PORTUGUESE Oral Expression Ability: Yes: Mild Impairment - Speech Production Able to Make Needs Known: Yes: WNL Intelligibility: Yes: Mildly Impaired - Speech Characteristics Voice Loudness: Mildly Soft/Quiet Voice Pitch: Yes: Normal Voice Phonatory-based Quality: Yes: Hoarse, Dysphonia Speech Clarity: < 100% Nasal Resonance: Normal Articulation: Yes: Precise Rate of Speech: Intact - Language/Verbal Expression Able to Respond to Simple Queries: Yes: WNL Able to Communicate Wants and Needs: Yes: WNL Functional Communication Status: Yes: WNL - Swallow Evaluation/Bedside Assessment Current Nutritional Intake: NPO Oral Secretions: Yes: WFL Dentition: Yes: Adequate Facial Symmetry on Retraction: Symmetrical Against Resistance Opening: Normal Against Resistance Closing: Normal Pucker Lips: Normal Smile: Normal Lingual Movement: Normal, Symmetric Lingual Speed of Movement: Normal Lingual Movement Strgth Against Opposition: Normal Lingual Movement Characteristics: Normal Laryngeal Movement: Labored,delay initiation Bolus Size: WFL Labial Seal: WFL Chewing: WFL Oral Prep Time: WFL A-P Transit: WFL Pocketing: None Coughing/Throat Clear: Yes (sip of water) Recommendations - Speech Evaluation, Impression/Plan Impression: Extubated this am. Dysphonia/dysphagia post extubated. Cough response elicited with small sips. - Dysphagia Impressions/Plan Swallowing Skills: Impaired Dysphagia Impressions: Suspect Aspiration *Silent aspiration: cannot be R/O at bedside Recommendations: Other (to follow/reassess as vocal quality improves) - Recommendations Diet Consistency: NPO Medication Administration: Crushed with applesauce Liquids: NPO
--- NOTE | 2018-12-21 13:06 | PN ---
Teaching Attending Note Name of Resident: Ileana Hebert ATTENDING PHYSICIAN STATEMENT I saw and evaluated the patient. I reviewed the resident's note and discussed the case with the resident. I agree with the resident's findings and plan as documented. SUBJECTIVE: [facility] *LIVE* Teaching Attending Note Patient Name: TRISTA HOOVER Date of : 1945 Patient Status: Inpatient Attending Provider: Marko Dietrich Date: 12/20/18 13:17 Initialization Date: 12/20/18 13:17 Teaching Attending Note Name of Resident: Ileana Hebert ATTENDING PHYSICIAN STATEMENT I saw and evaluated the patient. I reviewed the resident's note and discussed the case with the resident. I agree with the resident's findings and plan as documented. SUBJECTIVE: Patient seen and examined in the ICU. Intubated and awake on AC Mode of vent. Able to follow all commands. Pressors were stopped this AM. Intake & Output 12/18/18 12/19/18 12/20/18 12/21/18 23:59 23:59 23:59 23:59 Intake Total 940 1820 1266.4 335 Output Total 1000 400 Balance -60 1420 1266.4 335 Weight 212 lb 8.41 oz 216 lb 216 lb 7.903 oz Last Vital Signs Temp Pulse Resp BP Pulse Ox 98.4 F 74 22 H 109/54 L 97 12/21/18 12:00 12/21/18 12:00 12/21/18 12:00 12/21/18 12:00 12/21/18 09:00 Active Medications Albuterol Sulfate (Ventolin Hfa Inhaler -) 2 puff IH Q4H PRN PRN Reason: SHORT OF BREATH/WHEEZING Albuterol/Ipratropium (Duoneb -) 1 amp NEB RQID JON[facility] Last Admin: 12/21/18 12:10 Dose: 1 amp Apixaban (Eliquis -) 5 mg PO BID JON[facility] Last Admin: 12/21/18 09:08 Dose: 5 mg Atorvastatin Calcium (Lipitor -) 40 mg PO HS [facility] Last Admin: 12/20/18 22:16 Dose: 40 mg Ezetimibe (Zetia -) 10 mg PO DAILY [facility] Last Admin: 12/21/18 09:00 Dose: 10 mg Eplerenone (Eplerenone) 25 mg PO BID [facility] Last Admin: 12/21/18 09:00 Dose: 25 mg Ferrous Sulfate (Feosol -) 325 mg PO BIDWM [facility] Last Admin: 12/21/18 08:01 Dose: 325 mg Furosemide (Lasix Injection -) 40 mg IVPUSH BID@0600,1400 [facility] Last Admin: 12/21/18 06:01 Dose: 40 mg Ampicillin Sodium/Sulbactam (Sodium 1.5 gm/ Sodium Chloride) 100 mls @ 200 mls/ hr IVPB Q6H-IV [facility]ON[facility] Last Admin: 12/21/18 08:01 Dose: 200 mls/hr Norepinephrine Bitartrate 8, (000 mcg/ Dextrose) 500 mls @ 10.84 mls/hr IV ASDIR [facility]; Protocol Last Titration: 12/20/18 06:00 Dose: 0.03 mcg/kg/min, 10.84 mls/hr Propofol (Diprivan -) 1,000,000 mcg in 100 mls @ 2.892 mls/hr IVPB TITR [facility]; Protocol Last Admin: 12/21/18 06:15 Dose: 30 mcg/kg/min, 17.352 mls/hr Lamotrigine (Lamictal -) 25 mg PO DAILY [facility] Last Admin: 12/21/18 08:59 Dose: 25 mg Metoprolol Succinate (Toprol Xl -) 50 mg PO BID [facility] Last Admin: 12/21/18 08:59 Dose: 50 mg Olanzapine (Zyprexa -) 2.5 mg PO HS [facility] Last Admin: 12/20/18 22:17 Dose: 2.5 mg Ranolazine (Ranexa -) 1,000 mg PO BID [facility] Last Admin: 12/21/18 08:59 Dose: 1,000 mg GENERAL: Intubated, awake and alert, able to follow commands EYES: PERRLA, (-) Pallor (-) Icterus ENT: Moist mucus membranes NECK: No JVD noted LUNGS: intubated, mechanically ventilated, few rhonchi HEART: irregularly irregular, soft systolic murmur noted on exam, L sided subclavian central line in place ABDOMEN: Soft, nontender, BS present MUSCULOSKELETAL: No CVA Tenderness EXTREMITIES: 2+ pulses, 2+ pitting edema noted NEUROLOGICAL: Awake and alert, non-focal Laboratory Results - last 24 hr 12/21/18 12/21/18 12/21/18 05:40 05:40 05:40 WBC 8.3 RBC 3.08 L Hgb 10.3 L Hct 30.5 L MCV 98.7 H MCH 33.4 MCHC 33.9 RDW 15.8 Plt Count 179 MPV 9.3 Sodium 142 Potassium 3.6 Chloride 99 Carbon Dioxide 38 H Anion Gap 5 L BUN 33.5 H Creatinine 1.2 Est GFR (CKD-EPI)AfAm 69.60 Est GFR (CKD-EPI)NonAf 60.05 Random Glucose 127 H Calcium 8.2 L Phosphorus 2.5 Magnesium 2.4 Total Bilirubin 0.9 AST 24 ALT 44 Alkaline Phosphatase 65 Troponin I 0.09 H Total Protein 5.6 L Albumin 3.0 L ASSESSMENT/PLAN: Acute CP arrest R/O ROBERT O2 dependent COPD Pulmonary hypertension Sleep apnea CHFpEF (60-65%) Hypertension Hyperlipidemia CAD s/p right coronary artery stent Acute exacerbation of COPD Decompensated CHF LE cellulitis Wean with trial of extubation to HFOT Monitor off IVF Diuresis with Lasix BID Strict I & O BD TX Monitor off systemic steroids Daily weights ABX coverage Requires ICU monitoring Dr Gaming Critical care time spent in reviewing chart, evaluating patient and formulating plan - 36 minutes.
--- NOTE | 2018-12-21 16:38 | PN ---
Physical Exam: SUBJECTIVE: Patient seen and examined at bedside. pt extubated today. spoke with pt and his daughter at length about his medical conditions and explained that he had a cardiac arrest. OBJECTIVE: Vital Signs Period Temp Pulse Resp BP Sys/Govea Pulse Ox Last 24 Hr 97.8 F-99.0 F 63-76 14-27 106-159/54-76 97-98 GENERAL: The patient is awake, alert, and oriented, in no acute distress. pt on HFOT LUNGS: anteriorr breath sounds equal, clear to auscultation bilaterally, no accessory muscle use. HEART: irregular rate and rhythm, S1, S2 without murmur, rub or gallop. ABDOMEN: Soft, nontender, nondistended, normoactive bowel sounds, no guarding EXTREMITIES: 2+ pulses, warm, well-perfused, B/L LE edema. SKIN: Warm, dry, normal turgor, no rashes or lesions noted Laboratory Results - last 24 hr 12/21/18 12/21/18 12/21/18 05:40 05:40 05:40 WBC 8.3 RBC 3.08 L Hgb 10.3 L Hct 30.5 L MCV 98.7 H MCH 33.4 MCHC 33.9 RDW 15.8 Plt Count 179 MPV 9.3 Sodium 142 Potassium 3.6 Chloride 99 Carbon Dioxide 38 H Anion Gap 5 L BUN 33.5 H Creatinine 1.2 Est GFR (CKD-EPI)AfAm 69.60 Est GFR (CKD-EPI)NonAf 60.05 Random Glucose 127 H Calcium 8.2 L Phosphorus 2.5 Magnesium 2.4 Total Bilirubin 0.9 AST 24 ALT 44 Alkaline Phosphatase 65 Troponin I 0.09 H Total Protein 5.6 L Albumin 3.0 L Current Medications Albuterol Sulfate (Ventolin Hfa Inhaler -) 2 puff IH Q4H PRN PRN Reason: SHORT OF BREATH/WHEEZING Albuterol/Ipratropium (Duoneb -) 1 amp NEB RQID [facility] Last Admin: 12/21/18 16:31 Dose: 1 amp Apixaban (Eliquis -) 5 mg PO BID [facility] Last Admin: 12/21/18 09:08 Dose: 5 mg Atorvastatin Calcium (Lipitor -) 40 mg PO HS [facility] Last Admin: 12/20/18 22:16 Dose: 40 mg Ezetimibe (Zetia -) 10 mg PO DAILY [facility] Last Admin: 12/21/18 09:00 Dose: 10 mg Eplerenone (Eplerenone) 25 mg PO BID [facility] Last Admin: 12/21/18 09:00 Dose: 25 mg Ferrous Sulfate (Feosol -) 325 mg PO BIDWM [facility] Last Admin: 12/21/18 08:01 Dose: 325 mg Furosemide (Lasix Injection -) 40 mg IVPUSH BID@0600,1400 [facility] Last Admin: 12/21/18 13:04 Dose: Not Given Ampicillin Sodium/Sulbactam (Sodium 1.5 gm/ Sodium Chloride) 100 mls @ 200 mls/ hr IVPB Q6H-IV [facility] Last Admin: 12/21/18 15:20 Dose: 200 mls/hr Norepinephrine Bitartrate 8, (000 mcg/ Dextrose) 500 mls @ 10.84 mls/hr IV ASDIR [facility]; Protocol Last Titration: 12/20/18 06:00 Dose: 0.03 mcg/kg/min, 10.84 mls/hr Propofol (Diprivan -) 1,000,000 mcg in 100 mls @ 2.892 mls/hr IVPB TITR [facility]; Protocol Last Admin: 12/21/18 06:15 Dose: 30 mcg/kg/min, 17.352 mls/hr Lamotrigine (Lamictal -) 25 mg PO DAILY [facility] Last Admin: 12/21/18 08:59 Dose: 25 mg Metoprolol Succinate (Toprol Xl -) 50 mg PO BID [facility] Last Admin: 12/21/18 08:59 Dose: 50 mg Olanzapine (Zyprexa -) 2.5 mg PO HS [facility] Last Admin: 12/20/18 22:17 Dose: 2.5 mg Ranolazine (Ranexa -) 1,000 mg PO BID [facility] Last Admin: 12/21/18 08:59 Dose: 1,000 mg ASSESSMENT/PLAN: 73 yo M PMH COPD on 4L home O2, pulmonary HTN, RADHIKA, diastolic heart failure, HTN , HLD, CAD s/p RCA DAVID (2003,2004,2018) p/w altered mental status and cellulitis in LLE. Pt was being treated by PMD for cellulitis. During the hospital course, pt had claimed suicidal ideation. In ED, pt had ABG showing chronic CO2 retention. Yesterday, code 99 was called. pt was in cardiac arrest for around 10 min x 2 Epi. ROSC was achieved. pt is s/p extubation today. Pt is now awake and oriented. pt is on HFOT. s/p cardiac arrest -possibly 2/2 acute on chronic diastolic CHF vs COPD -Trop peak to 0.19-->0.09 -Pt had episodes of A.Fib & a. flutter on the tele monitor. Acute Hypoxic Hypercapmic Respiratory Failure - pt with known severe pulm htn -ABG showing CO2 retention, CO2 improving -pt currently HFOT saturating well Acute on chronic heart failure with preserved EF -fluid overloaded -c/w lasix BID -ECHO : preserved EF, severely dilated LA, severe mitral annular calcification, moderate -monitor I/Os -Daily Weights Paroxysmal AFib/ Aflutter -new -on eliquis as per cardio recs -cardio following the case L LE Cellulitis -XRay negative -pt completed augmentin x5d prior to admission. -c/w unasyn (day 5) -erythema improving -Doppler neg for DVT -Doppler indicated B/L arterial pulse Iron def Anemia -no signs of bleeding -iron supplements RADHIKA -recommending CPAP, pt was not compliant at home Acute Metabolic encephalopathy -pt currently awake, alert and oriented -possibly 2/2 hypercapnea -recommended use of CPAP at night -pt denied any thoughts to hurt himself or others. -psych is consulted DVT ppx: Eliquis Dispo: continue ICU monitoring , pt Full Code Visit type - Emergency Visit Emergency Visit: No - New Patient This patient is new to me today: No - Critical Care Critical Care patient: Yes Total Critical Care Time (in minutes): 36 Critical Care Statement: The care of this patient involved high complexity decision making to prevent further life threatening deterioration of the patient 's condition and/or to evaluate & treat vital organ system(s) failure or risk of failure. - Discharge Referral Referred to [facility] No ATTENDING PHYSICIAN STATEMENT I saw and evaluated the patient. I reviewed the resident's note and discussed the case with the resident. I agree with the resident's findings and plan as documented. SUBJECTIVE: OBJECTIVE: ASSESSMENT AND PLAN:
--- NOTE | 2018-12-21 19:28 | PN ---
Teaching Attending Note Name of Resident: Sheron Richey ATTENDING PHYSICIAN STATEMENT I saw and evaluated the patient. I reviewed the resident's note and discussed the case with the resident. I agree with the resident's findings and plan as documented. SUBJECTIVE: Day 2 s/p PEA arrest, extubated, feeling well, no complaints. OBJECTIVE: Afebrile, hemodynamically Stable. AAO x 3. S/P Extubation Last Vital Signs Temp Pulse Resp BP Pulse Ox 98.2 F 80 24 H 115/57 L 97 12/21/18 16:00 12/21/18 18:00 12/21/18 18:00 12/21/18 18:00 12/21/18 09:00 HEENT - Atraumatic, Normocephalic Heart - S1, S2, SM Lungs - few basal crackles Abdomen- Soft, non-tender. Extremities - LLE cellulitis much improved, no further erythema/tenderness. Neuro - AAO x 3. Tone/Power normal all 4 extremities. Laboratory Results - last 24 hr 12/21/18 12/21/18 12/21/18 05:40 05:40 05:40 WBC 8.3 RBC 3.08 L Hgb 10.3 L Hct 30.5 L MCV 98.7 H MCH 33.4 MCHC 33.9 RDW 15.8 Plt Count 179 MPV 9.3 Sodium 142 Potassium 3.6 Chloride 99 Carbon Dioxide 38 H Anion Gap 5 L BUN 33.5 H Creatinine 1.2 Est GFR (CKD-EPI)AfAm 69.60 Est GFR (CKD-EPI)NonAf 60.05 Random Glucose 127 H Calcium 8.2 L Phosphorus 2.5 Magnesium 2.4 Total Bilirubin 0.9 AST 24 ALT 44 Alkaline Phosphatase 65 Troponin I 0.09 H Total Protein 5.6 L Albumin 3.0 L Current Medications Generic Name Dose Route Start Last Admin Trade Name Freq PRN Reason Stop Dose Admin Albuterol Sulfate 2 puff 12/15/18 20:10 Ventolin Hfa Inhaler - IH Q4H PRN SHORT OF BREATH/WHEEZING Albuterol/Ipratropium 1 amp 12/16/18 20:30 12/21/18 16:31 Duoneb - NEB 1 amp RQID JONH Administration Apixaban 5 mg 12/19/18 22:00 12/21/18 09:08 Eliquis - PO 5 mg BID JONH Administration Atorvastatin Calcium 40 mg 12/15/18 22:00 12/20/18 22:16 Lipitor - PO 40 mg HS JONH Administration Ezetimibe 10 mg 12/16/18 10:00 12/21/18 09:00 Zetia - PO 10 mg DAILY [facility]ONH Administration Eplerenone 25 mg 12/15/18 22:00 12/21/18 09:00 Eplerenone PO 25 mg BID JONH Administration Ferrous Sulfate 325 mg 12/17/18 08:00 12/21/18 16:39 Feosol - PO Not Given BIDWM [facility]ONH Furosemide 40 mg 12/19/18 14:00 12/21/18 13:04 Lasix Injection - IVPUSH Not Given BID@0600,1400 [facility] Ampicillin Sodium/Sulbactam 100 mls @ 200 mls/hr 12/16/18 15:00 12/21/18 15: 20 Sodium 1.5 gm/ Sodium Chloride IVPB 200 mls/hr Q6H-IV [facility] Administration Norepinephrine Bitartrate 8, 500 mls @ 10.84 mls/hr 12/19/18 21:00 12/20/18 06:00 000 mcg/ Dextrose IV 0.03 mcg/kg/min ASDIR [facility] 10.84 mls/hr Titration Protocol 0.03 MCG/KG/MIN Propofol 1,000,000 mcg in 100 mls @ 2.892 mls/hr 12/19/18 23:30 12/21/18 06: 15 Diprivan - IVPB 30 mcg/kg/min TITR [facility]ON[facility] 17.352 mls/hr Administration Protocol 5 MCG/KG/MIN Lamotrigine 25 mg 12/16/18 10:00 12/21/18 08:59 Lamictal - PO 25 mg DAILY [facility]ON[facility] Administration Metoprolol Succinate 50 mg 12/15/18 22:00 12/21/18 08:59 Toprol Xl - PO 50 mg BID JONH Administration Olanzapine 2.5 mg 12/17/18 22:00 12/20/18 22:17 Zyprexa - PO 2.5 mg HS JONH Administration Ranolazine 1,000 mg 12/15/18 22:00 12/21/18 08:59 Ranexa - PO 1,000 mg BID [facility]ON[facility] Administration Home Medications Medication Instructions Recorded Aspirin [ASA] 81 mg PO DAILY 01/09/12 Sertraline HCl [Zoloft] 200 mg PO DAILY 01/09/12 Albuterol Sulfate Inhaler - 1 - 2 puff IH PRN PRN MDD Q4-6 12/15/18 [Ventolin HFA Inhaler -] hours Atorvastatin Ca [Lipitor] 40 mg PO HS 12/15/18 Bumetanide 2 mg PO BID 12/15/18 Cholecalciferol (Vitamin D3) 1,000 mg PO DAILY 12/15/18 [Vitamin D3] Eplerenone 25 mg PO BID 12/15/18 Ezetimibe 10 mg PO DAILY 12/15/18 Lamotrigine [Lamictal] 25 mg PO DAILY 12/15/18 Metoprolol Succinate [Toprol Xl] 50 mg PO BID 12/15/18 Ranolazine [Ranexa] 1,000 mg PO BID 12/15/18 Umeclidinium [place] [Incruse 1 puff IH DAILY 12/15/18 Ellipta] Fluticasone/Vilanterol [Breo 1 puff IN DAILY 12/16/18 Ellipta 200-25 Mcg INH] Gabapentin 100 mg PO DAILY 12/16/18 ASSESSMENT AND PLAN: 73 year old male with history of RADHIKA on CPAP, HTN, CRF sec to COPD on 3L Home O2 , Pulmonary HTN, CHF, CAD s/p stent, admitted with LLE Cellulitis and AMS, sustained PEA arrest with hypoxic and hypercapneic respiratory failure. 1. S/p PEA Cardiac arrest secondary to Hypoxia and Hypercapnia - Intubated/ Extubated. TropI peaked 0.19. Cardiology following. 2. Acute Hypoxic Hypercapnic respiratory failure - resolved, s/p intubation/ extubation 12/21/18. Now AAO x 3, breathing spontaneously on 50% via NC. 3. Acute on chronic Diastolic CHF- Continue IV Lasix diuresis. monitor electrolytes. I/Os. Daily Weights. 4. LLE cellulitis - failed outpatient therapy. Improving on Unasyn (Day 6). 5. CANDY - improving. 6. Parox Atrial fibrillation/flutter - new - started on Eliquis. Continue Metoprolol. 7. Iron def anemia - no signs of bleeding. Iron supplementation. Work-up as out- patient. 8. CRF sec to COPD - On Home O2 (4-6L via NC), RADHIKA on CPAP - not compliant with BiPAP at home 9. CAD s/p PCI/Stent - demand ischemia and s/p arrest. Continue BB, Statin, Ranexa. Further recommendations as per Cardiology. 10. HTN/HOCM of Elderly - Continue Eplerenone, Toprol XL. For out-patient Cardiac MRI. DVT Px- on Eliquis
[2018-12-21] MEDS: ATORVASTATIN CA 40 MG TABLET (FP) PO SCH (21:52)
[2018-12-21] MEDS: OLANZapine 2.5 MG TABLET PO SCH (21:53)
[2018-12-22] MEDS ORDERED: AMPICILLIN NA/SULBACTAM NA 1.5 GM VIAL ONE ×4 (03:04→20:56)
[2018-12-22] MEDS ORDERED: SODIUM CHLORIDE 100 ML IVPB ONE ×4 (03:04→20:56)
[2018-12-22] MEDS: AMPICILLIN NA/SULBACTAM NA 1.5 GM in SODIUM CHLORIDE 100 ML IVPB SCH ×4 (03:15→21:12)
[2018-12-22] MEDS: FUROSEMIDE 40 MG/4 ML INJECTABLE VIAL IVPUSH SCH ×2 (06:43→14:32)
[2018-12-22 06:49] LABS: HEMATOCRIT 32.4 % (35.4-49); HEMOGLOBIN 10.9 GM/dL (11.7-16.9); MCH 33.3 pg (25.7-33.7); MCHC 33.5 g/dl (32.0-35.9); MEAN CELL VOLUME 99.5 fl (80-96); MEAN PLT VOLUME 9.1 fl (7.5-11.1); PLATELET COUNT 171 K/MM3 (134-434); RBC 3.26 M/mm3 (4.00-5.60); RDW 15.6 % (11.9-15.9)
[2018-12-22 07:28] LABS: BILIRUBIN,TOTAL 0.8 mg/dL (0.2-1); CALCIUM 8.6 mg/dL (8.5-10.1); CREATININE 0.9 mg/dL (0.55-1.3); MAGNESIUM 2.5 mg/dL (1.8-2.4); PHOSPHOROUS 3.1 mg/dL (2.5-4.9); POTASSIUM 3.6 mmol/L (3.5-5.1)
[2018-12-22] MEDS ORDERED: PT OWN MED DRAWER 7, Y5N ONE ×4 (08:35→20:55)
[2018-12-22] MEDS: FERROUS SO4 325 MG TABLET (FP) PO SCH ×2 (08:59→17:58)
[2018-12-22] MEDS: APIXABAN 5 MG TABLET PO SCH ×2 (09:03→21:12)
[2018-12-22] MEDS: EZETIMIBE 10 MG TABLET (FP) PO SCH (09:04)
[2018-12-22] MEDS: EPLERENONE 25 MG TABLET PO SCH ×2 (09:38→22:40)
[2018-12-22] MEDS: lamoTRIgine 25 MG TABLET PO SCH (09:41)
--- NOTE | 2018-12-22 10:50 | PN ---
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 Able to retain "November" after 5 minutes with distraction. Voice improving, less Dysphonic, now Mild to Moderate. Swallow is improving, still reduced in rate and range of laryngeal excursion. Denies stasis. No overt changes in voice or cough response. Silent aspiration can not be r/o at bedside. Still on Highflo. Tongue with thick white patches. Mouth care/r/o thrush Rec: r/o thrush Medication crushed per manufacturers guidelines, given in applesauce Mouth care TID trial of soft, moist, east to chew diet and single sip[s of thin liquids, no straws. If fever, increased congestion or increased effort with respiration, downgrade to nectar/dys chopped and suggest MBS for better reliability to r/o silent aspiration/stasis.
--- NOTE | 2018-12-22 13:41 | PN ---
Progress Note, Physician History of Present Illness: Extubated on HFO2, back in NSR. - Current Medication List Current Medications: Active Medications Albuterol Sulfate (Ventolin Hfa Inhaler -) 2 puff IH Q4H PRN PRN Reason: SHORT OF BREATH/WHEEZING Apixaban (Eliquis -) 5 mg PO BID [facility] Last Admin: 12/22/18 09:03 Dose: 5 mg Atorvastatin Calcium (Lipitor -) 40 mg PO HS [facility] Last Admin: 12/21/18 21:52 Dose: 40 mg Ezetimibe (Zetia -) 10 mg PO DAILY [facility] Last Admin: 12/22/18 09:04 Dose: 10 mg Eplerenone (Eplerenone) 25 mg PO BID [facility] Last Admin: 12/22/18 09:38 Dose: 25 mg Ferrous Sulfate (Feosol -) 325 mg PO BIDWM [facility] Last Admin: 12/22/18 08:59 Dose: 325 mg Furosemide (Lasix Injection -) 40 mg IVPUSH BID@0600,1400 [facility] Last Admin: 12/22/18 06:43 Dose: 40 mg Ampicillin Sodium/Sulbactam (Sodium 1.5 gm/ Sodium Chloride) 100 mls @ 200 mls/ hr IVPB Q6H-IV [facility] Last Admin: 12/22/18 09:37 Dose: 200 mls/hr Norepinephrine Bitartrate 8, (000 mcg/ Dextrose) 500 mls @ 10.84 mls/hr IV ASDIR [facility]; Protocol Last Titration: 12/20/18 06:00 Dose: 0.03 mcg/kg/min, 10.84 mls/hr Propofol (Diprivan -) 1,000,000 mcg in 100 mls @ 2.892 mls/hr IVPB TITR [facility]; Protocol Last Admin: 12/21/18 06:15 Dose: 30 mcg/kg/min, 17.352 mls/hr Lamotrigine (Lamictal -) 25 mg PO DAILY [facility] Last Admin: 12/22/18 09:41 Dose: 25 mg Metoprolol Succinate (Toprol Xl -) 50 mg PO BID [facility] Last Admin: 12/22/18 09:02 Dose: 50 mg Olanzapine (Zyprexa -) 2.5 mg PO HS [facility] Last Admin: 12/21/18 21:53 Dose: 2.5 mg Ranolazine (Ranexa -) 1,000 mg PO BID [facility] Last Admin: 12/21/18 22:50 Dose: 1,000 mg - Objective Vital Signs: Vital Signs Temperature 98.6 F 12/22/18 10:00 Pulse Rate 78 12/22/18 12:00 Respiratory Rate 22 H 12/22/18 12:00 Blood Pressure 143/56 L 12/22/18 12:00 O2 Sat by Pulse Oximetry (%) 93 L 12/22/18 09:00 Constitutional: Yes: No Distress, Calm Neck: Yes: Supple Cardiovascular: Yes: Regular Rate and Rhythm Respiratory: Yes: Regular, Diminished, On Nasal O2 Gastrointestinal: Yes: Soft, Hypoactive Bowel Sounds Edema: Yes Edema: LLE: Trace, RLE: Trace Labs: CBC, BMP 12/22/18 06:00 12/22/18 06:00 INR, PTT INR 1.21 (0.83-1.09) H 12/19/18 22:23 - ....Imaging Chest X-ray: Report Reviewed (Congestion with pleural effusion improving) EKG: Report Reviewed (Tele: PAF->SR) Problem List - Problems (1) Coronary artery disease Code(s): I25.10 - ATHSCL HEART DISEASE OF [place] CORONARY ARTERY W/O ANG PCTRS Qualifiers: Coronary Disease-Associated Artery/Lesion type: [place] artery [place] vs. transplanted heart: [place] heart Associated angina: without angina Qualified Code(s): I25.10 - Atherosclerotic heart disease of [place] coronary artery without angina pectoris (2) S/P right coronary artery (RCA) stent placement Code(s): Z95.5 - PRESENCE OF CORONARY ANGIOPLASTY IMPLANT AND GRAFT (3) Hyperlipidemia Code(s): E78.5 - HYPERLIPIDEMIA, UNSPECIFIED Qualifiers: Hyperlipidemia type: pure hypercholesterolemia Qualified Code(s): E78.00 - Pure hypercholesterolemia, unspecified; E78.0 - Pure hypercholesterolemia (4) RADHIKA (obstructive sleep apnea) Code(s): G47.33 - OBSTRUCTIVE SLEEP APNEA (ADULT) (PEDIATRIC) (5) Pulmonary hypertension assoc with unclear multi-factorial mechanisms Code(s): I27.29 - OTHER SECONDARY PULMONARY HYPERTENSION (6) Toxic metabolic encephalopathy Code(s): G92 - TOXIC ENCEPHALOPATHY (7) Hypertensive cardiomyopathy Code(s): I11.9 - HYPERTENSIVE HEART DISEASE WITHOUT HEART FAILURE; I43 - CARDIOMYOPATHY IN DISEASES CLASSIFIED ELSEWHERE Qualifiers: Heart failure presence: with heart failure Qualified Code(s): I11.0 - Hypertensive heart disease with heart failure; I43 - Cardiomyopathy in diseases classified elsewhere (8) CHF exacerbation Code(s): I50.9 - HEART FAILURE, UNSPECIFIED Qualifiers: Heart failure type: diastolic Qualified Code(s): I50.33 - Acute on chronic diastolic (congestive) heart failure (9) COPD exacerbation Code(s): J44.1 - CHRONIC OBSTRUCTIVE PULMONARY DISEASE W (ACUTE) EXACERBATION (10) Hypertrophic cardiomyopathy Code(s): I42.2 - OTHER HYPERTROPHIC CARDIOMYOPATHY (11) Atrial flutter with controlled response Code(s): I48.92 - UNSPECIFIED ATRIAL FLUTTER Assessment/Plan 11/12/2018 R&LHc Elevated right-sided pressures, moderate pulm HTN, normal PVRI , elevated PCWP, elevated LVEDP, decreased cardiac output, 1 vessel CAD with occluded prox RCA filling via bridging collaterals, hyperdynamic systolic function 11/08/2018 Echo: Mod cLVH with normal systolic function LVEF 60-65%, grade II diastolic dysfunction with elevated filling pressures, hyperdynamic mid cavity with obliteration suggestive of mid cavity obstruction, resting left ventricular outflow tract gradient 25 mmHg increasing to 33 mmHg with Valsalva, mild LAE, normal RV size and fxn, mild-mod MR, mild TR RVSP 33 mmHg 09/22/2017 Dobutamine Myoview: Moderate size inferior perfusion defect wth mild ischemia, normal LVEF 88% 12/16/2018 LE US: No DVT bilaterally, moderate atherosclerosis w/o stenosis bilaterally 12/18/2018 HCT: No acute changes 1. Post PEA arrest 2. Acute on chronic hypercapneic, hypoxemic respiratory failure with toxic metabolic encephalopathy 3. Acute on chronic diastolic heart failure, moderate functional MS and moderate pulmonary HTN 4. Acute exacerbation of COPD 5. OSAS 6. 1 vessel CAD h/o RCA stent with demand ischemia 7. Hypertensive heart disease/HOCM of elderly 8. Paroxysmal AF/flutter->NSR ([id number]) 9. Hyperlipidemia 10. Sick euthyroid syndrome 11. LLE cellulitis 12. CANDY improving PLAN: 1. Continue IV diuresis with monitoring renal function and electrolytes 2. Troponin downtrending 3. Wean FIO2 as tolerated 4. Cardiac MRI as outpatient to evaluate HOCM of elderly 5. Continue Eliquis 5 mg BID, Eplerenone 25 BID, Zetia 10 mg QD, Lipitor 40 mg QD, Toprol XL 50 mg BID and Ranexa 1000 mg BID as tolerated 6. Wound care and empiric antibiotic course
--- NOTE | 2018-12-22 14:01 | PN ---
Physical Exam: SUBJECTIVE: Patient seen and examined at bedside. Pt has no acute complaints. Pt wants to start walking to use the bathroom. OBJECTIVE: Vital Signs Period Temp Pulse Resp BP Sys/Govea Pulse Ox Last 24 Hr 98.2 F-98.6 F 74-80 20-27 109-143/43-84 93-93 GENERAL: The patient is awake, alert, and fully oriented, in no acute distress. LUNGS: Breath sounds equal, clear to auscultation bilaterally, no accessory muscle use. HEART: irregular rate and rhythm, S1, S2 without murmur, rub or gallop. ABDOMEN: Soft, nontender, nondistended, normoactive bowel sounds, no guarding EXTREMITIES: 2+ pulses, warm, well-perfused, B/L LE edema. SKIN: Warm, dry, normal turgor, no rashes or lesions noted Laboratory Results - last 24 hr 12/22/18 12/22/18 06:00 06:00 WBC 8.0 RBC 3.26 L Hgb 10.9 L Hct 32.4 L MCV 99.5 H MCH 33.3 MCHC 33.5 RDW 15.6 Plt Count 171 MPV 9.1 Sodium 143 Potassium 3.6 Chloride 102 Carbon Dioxide 37 H Anion Gap 5 L BUN 24.0 H Creatinine 0.9 Est GFR (CKD-EPI)AfAm 98.55 Est GFR (CKD-EPI)NonAf 85.03 Random Glucose 98 Calcium 8.6 Phosphorus 3.1 Magnesium 2.5 H Total Bilirubin 0.8 AST 26 ALT 42 Alkaline Phosphatase 71 Total Protein 6.0 L Albumin 3.0 L Current Medications Albuterol Sulfate (Ventolin Hfa Inhaler -) 2 puff IH Q4H PRN PRN Reason: SHORT OF BREATH/WHEEZING Apixaban (Eliquis -) 5 mg PO BID [facility] Last Admin: 12/22/18 09:03 Dose: 5 mg Atorvastatin Calcium (Lipitor -) 40 mg PO HS [facility] Last Admin: 12/21/18 21:52 Dose: 40 mg Ezetimibe (Zetia -) 10 mg PO DAILY [facility] Last Admin: 12/22/18 09:04 Dose: 10 mg Eplerenone (Eplerenone) 25 mg PO BID [facility] Last Admin: 12/22/18 09:38 Dose: 25 mg Ferrous Sulfate (Feosol -) 325 mg PO BIDWM [facility] Last Admin: 12/22/18 08:59 Dose: 325 mg Furosemide (Lasix Injection -) 40 mg IVPUSH BID@0600,1400 [facility] Last Admin: 12/22/18 06:43 Dose: 40 mg Ampicillin Sodium/Sulbactam (Sodium 1.5 gm/ Sodium Chloride) 100 mls @ 200 mls/ hr IVPB Q6H-IV [facility] Last Admin: 12/22/18 09:37 Dose: 200 mls/hr Norepinephrine Bitartrate 8, (000 mcg/ Dextrose) 500 mls @ 10.84 mls/hr IV ASDIR [facility]; Protocol Last Titration: 12/20/18 06:00 Dose: 0.03 mcg/kg/min, 10.84 mls/hr Propofol (Diprivan -) 1,000,000 mcg in 100 mls @ 2.892 mls/hr IVPB TITR [facility]; Protocol Last Admin: 12/21/18 06:15 Dose: 30 mcg/kg/min, 17.352 mls/hr Lamotrigine (Lamictal -) 25 mg PO DAILY [facility] Last Admin: 12/22/18 09:41 Dose: 25 mg Metoprolol Succinate (Toprol Xl -) 50 mg PO BID [facility] Last Admin: 12/22/18 09:02 Dose: 50 mg Olanzapine (Zyprexa -) 2.5 mg PO HS [facility] Last Admin: 12/21/18 21:53 Dose: 2.5 mg Ranolazine (Ranexa -) 1,000 mg PO BID [facility] Last Admin: 12/21/18 22:50 Dose: 1,000 mg ASSESSMENT/PLAN: 73 yo M PMH COPD on 4L home O2, pulmonary HTN, RADHIKA, diastolic heart failure, HTN , HLD, CAD s/p RCA DAVID (2003,2004,2018) p/w altered mental status and cellulitis in LLE. Pt was being treated by PMD for cellulitis. During the hospital course, pt had claimed suicidal ideation. In ED, pt had ABG showing chronic CO2 retention. Yesterday, code 99 was called. pt was in cardiac arrest for around 10 min x 2 Epi. ROSC was achieved. pt is s/p extubation yesterday. Pt is now awake and oriented. pt is on HFOT. s/p cardiac arrest -possibly 2/2 acute on chronic diastolic CHF vs COPD -Trop peak to 0.19-->0.09 -Pt had episodes of A.Fib & a. flutter on the tele monitor. Acute Hypoxic Hypercapmic Respiratory Failure - pt with known severe pulm htn -ABG showing CO2 retention, CO2 improving -pt currently HFOT saturating well , wean off back to home O2 ( 4-5 L NC) as tolerated Acute on chronic heart failure with preserved EF -fluid overloaded -c/w lasix BID -ECHO : preserved EF, severely dilated LA, severe mitral annular calcification, moderate -monitor I/Os -Daily Weights Paroxysmal AFib/ Aflutter -new -on eliquis as per cardio recs -cardio following the case L LE Cellulitis -XRay negative -pt completed augmentin x5d prior to admission. -c/w unasyn (day 6) -erythema improving -Doppler neg for DVT -Doppler indicated B/L arterial pulse Iron def Anemia -no signs of bleeding -iron supplements RADHIKA -recommending CPAP, pt was not compliant at home Acute Metabolic encephalopathy -pt currently awake, alert and oriented -possibly 2/2 hypercapnea -recommended use of CPAP at night -pt denied any thoughts to hurt himself or others. -psych is consulted -pt has a hx of depression ( on zoloft from PMD), zoloft has been held -c/w zyprexa as per psych recs F/E/N: -pt advanced to soft diet DVT ppx: Eliquis Dispo: continue ICU monitoring , pt Full Code Visit type - Emergency Visit Emergency Visit: No - New Patient This patient is new to me today: No - Critical Care Critical Care patient: Yes Total Critical Care Time (in minutes): 36 Critical Care Statement: The care of this patient involved high complexity decision making to prevent further life threatening deterioration of the patient 's condition and/or to evaluate & treat vital organ system(s) failure or risk of failure. - Discharge Referral Referred to [facility] Med [facility] No ATTENDING PHYSICIAN STATEMENT I saw and evaluated the patient. I reviewed the resident's note and discussed the case with the resident. I agree with the resident's findings and plan as documented. SUBJECTIVE: OBJECTIVE: ASSESSMENT AND PLAN:
[2018-12-22] MEDS: RANOLAZINE E.R. 1,000 MG TABLET (FP) PO SCH ×2 (14:31→21:12)
--- NOTE | 2018-12-22 14:47 | PN ---
Teaching Attending Note Name of Resident: Ileana Hebert ATTENDING PHYSICIAN STATEMENT I saw and evaluated the patient. I reviewed the resident's note and discussed the case with the resident. I agree with the resident's findings and plan as documented. SUBJECTIVE: Pt seen and examined in the ICU. Remains on HFOT. Denies shortness of breath. Mental status appears to be at baseline. OBJECTIVE: Vital Signs Period Temp Pulse Resp BP Sys/Govea Pulse Ox Last 24 Hr 98.2 F-98.6 F 74-80 20-26 109-143/43-84 93-93 Intake & Output 12/19/18 12/20/18 12/21/18 12/22/18 23:59 23:59 23:59 23:59 Intake Total 1820 1266.4 535 100 Output Total 400 Balance 1420 1266.4 535 100 Weight 96.4 kg 97.976 kg 98.2 kg 91.2 kg Gen: NAD on HFOT Heart: RRR Lung: decreased breath sounds at the bases Abd: soft, nontender Ext: trace edema CBC, BMP 12/22/18 06:00 12/22/18 06:00 Active Medications Albuterol Sulfate (Ventolin Hfa Inhaler -) 2 puff IH Q4H PRN PRN Reason: SHORT OF BREATH/WHEEZING Apixaban (Eliquis -) 5 mg PO BID [facility] Last Admin: 12/22/18 09:03 Dose: 5 mg Atorvastatin Calcium (Lipitor -) 40 mg PO HS [facility] Last Admin: 12/21/18 21:52 Dose: 40 mg Ezetimibe (Zetia -) 10 mg PO DAILY [facility] Last Admin: 12/22/18 09:04 Dose: 10 mg Eplerenone (Eplerenone) 25 mg PO BID [facility] Last Admin: 12/22/18 09:38 Dose: 25 mg Ferrous Sulfate (Feosol -) 325 mg PO BIDWM [facility] Last Admin: 12/22/18 08:59 Dose: 325 mg Furosemide (Lasix Injection -) 40 mg IVPUSH BID@0600,1400 [facility] Last Admin: 12/22/18 14:32 Dose: 40 mg Ampicillin Sodium/Sulbactam (Sodium 1.5 gm/ Sodium Chloride) 100 mls @ 200 mls/ hr IVPB Q6H-IV [facility] Last Admin: 12/22/18 14:38 Dose: 200 mls/hr Norepinephrine Bitartrate 8, (000 mcg/ Dextrose) 500 mls @ 10.84 mls/hr IV ASDIR [facility]; Protocol Last Titration: 12/20/18 06:00 Dose: 0.03 mcg/kg/min, 10.84 mls/hr Propofol (Diprivan -) 1,000,000 mcg in 100 mls @ 2.892 mls/hr IVPB TITR [facility]; Protocol Last Admin: 12/21/18 06:15 Dose: 30 mcg/kg/min, 17.352 mls/hr Lamotrigine (Lamictal -) 25 mg PO DAILY [facility] Last Admin: 12/22/18 09:41 Dose: 25 mg Metoprolol Succinate (Toprol Xl -) 50 mg PO BID [facility] Last Admin: 12/22/18 09:02 Dose: 50 mg Olanzapine (Zyprexa -) 2.5 mg PO HS [facility] Last Admin: 12/21/18 21:53 Dose: 2.5 mg Ranolazine (Ranexa -) 1,000 mg PO BID [facility] Last Admin: 12/22/18 14:31 Dose: 1,000 mg ASSESSMENT AND PLAN: s/p Cardiopulmonary Arrest Acute on Chronic Hypoxic and Hypercapneic Respiratory Failure Acute COPD Exacerbation Acute on Chronic Diastolic Heart Failure Pulmonary HTN CAD Paroxysmal Atrial Fibrillation HTN Cellulitis - continue antibiotics - continue lasix - monitor urine output, creatinine - rate control - continue anticoagulation - transition to nasal cannula - PO as tolerated - can monitor on telemetry if tolerating nasal cannula critical care time spent in reviewing chart, evaluating patient and formulating plan 35 min
--- NOTE | 2018-12-22 15:14 | PN ---
Physical Exam: SUBJECTIVE: Patient seen and examined at bedside. No acute events overnight. Still on HFNC, plan to wean down to home O2. OBJECTIVE: Vital Signs Period Temp Pulse Resp BP Sys/Govea Pulse Ox Last 24 Hr 98.2 F-98.6 F 74-80 20-26 109-143/43-84 93-93 GENERAL: The patient is awake, alert, and fully oriented, in no acute distress. LUNGS: Breath sounds equal, clear to auscultation bilaterally, no accessory muscle use. HEART: irregular rate and rhythm, S1, S2 without murmur, rub or gallop. ABDOMEN: Soft, nontender, nondistended, normoactive bowel sounds, no guarding EXTREMITIES: 2+ pulses, warm, well-perfused, 2+ B/L LE edema. SKIN: Warm, dry, normal turgor, no rashes or lesions noted Laboratory Results - last 24 hr 12/22/18 12/22/18 06:00 06:00 WBC 8.0 RBC 3.26 L Hgb 10.9 L Hct 32.4 L MCV 99.5 H MCH 33.3 MCHC 33.5 RDW 15.6 Plt Count 171 MPV 9.1 Sodium 143 Potassium 3.6 Chloride 102 Carbon Dioxide 37 H Anion Gap 5 L BUN 24.0 H Creatinine 0.9 Est GFR (CKD-EPI)AfAm 98.55 Est GFR (CKD-EPI)NonAf 85.03 Random Glucose 98 Calcium 8.6 Phosphorus 3.1 Magnesium 2.5 H Total Bilirubin 0.8 AST 26 ALT 42 Alkaline Phosphatase 71 Total Protein 6.0 L Albumin 3.0 L Active Medications Generic Name Dose Route Start Last Admin Trade Name Freq PRN Reason Stop Dose Admin Albuterol Sulfate 2 puff 12/15/18 20:10 Ventolin Hfa Inhaler - IH Q4H PRN SHORT OF BREATH/WHEEZING Apixaban 5 mg 12/19/18 22:00 12/22/18 09:03 Eliquis - PO 5 mg BID [facility] Administration Atorvastatin Calcium 40 mg 12/15/18 22:00 12/21/18 21:52 Lipitor - PO 40 mg HS [facility] Administration Ezetimibe 10 mg 12/16/18 10:00 12/22/18 09:04 Zetia - PO 10 mg DAILY [facility] Administration Eplerenone 25 mg 12/15/18 22:00 12/22/18 09:38 Eplerenone PO 25 mg BID [facility] Administration Ferrous Sulfate 325 mg 12/17/18 08:00 12/22/18 08:59 Feosol - PO 325 mg BIDWM [facility] Administration Furosemide 40 mg 12/19/18 14:00 12/22/18 14:32 Lasix Injection - IVPUSH 40 mg BID@0600,1400 [facility] Administration Ampicillin Sodium/Sulbactam 100 mls @ 200 mls/hr 12/16/18 15:00 12/22/18 14: 38 Sodium 1.5 gm/ Sodium Chloride IVPB 200 mls/hr Q6H-IV [facility] Administration Norepinephrine Bitartrate 8, 500 mls @ 10.84 mls/hr 12/19/18 21:00 12/20/18 06:00 000 mcg/ Dextrose IV 0.03 mcg/kg/min ASDIR [facility] 10.84 mls/hr Titration Protocol 0.03 MCG/KG/MIN Propofol 1,000,000 mcg in 100 mls @ 2.892 mls/hr 12/19/18 23:30 12/21/18 06: 15 Diprivan - IVPB 30 mcg/kg/min TITR [facility] 17.352 mls/hr Administration Protocol 5 MCG/KG/MIN Lamotrigine 25 mg 12/16/18 10:00 12/22/18 09:41 Lamictal - PO 25 mg DAILY [facility] Administration Metoprolol Succinate 50 mg 12/15/18 22:00 12/22/18 09:02 Toprol Xl - PO 50 mg BID [facility] Administration Olanzapine 2.5 mg 12/17/18 22:00 12/21/18 21:53 Zyprexa - PO 2.5 mg HS [facility] Administration Ranolazine 1,000 mg 12/15/18 22:00 12/22/18 14:31 Ranexa - PO 1,000 mg BID [facility] Administration ASSESSMENT/PLAN: 73 year old male with a medical history of COPD (on home O2), pulmonary hypertension, sleep apnea, CHFpEF (60-65%), hypertension, hyperlipidemia, CAD s/ p right coronary artery stent presented for weakness and somnolence, admitted for treatment of hypoxic, hypercapnic respiratory failure 2/2 COPD/CHF exacerbation is transferred to ICU s/p cardiac arrest. Neurological/MSK -AO to self and location. Patient confused about why he is in the hospital and how long he has been here. -continue zyprexa -Patient up and out of bed, physical therapy today Cardiovascular -Cardiac Arrest: regained ROSC after 10 minutes and 2 rounds of epinephrine. Most likely cause of arrest is hypoxia/hypercapnia due to non-compliance with non-invasive O2 delivery, however we will evaluate for alternative causes of arrest -chest X ray showing congestive changes/ atelectasis -EKG ordered - afib with no new ischemic changes from prior EKG -Echo showing no wall motion abnormality, EF 60-65%, LA severely dilated -troponinemia likely 2/2 cardiac arrest and hypoxia -> now down trending -subclavian line was placed> plan to remove today -continue to diurese with lasix 40mg IVpush BID -continue eliquis 5 bid -Per Dr. Garcia/Bharathi, consider cardioversion if compliance with Eliquis is assured and if AF persists -continue eplerenone 25 bid, Zetia 10 qd, Lipitor 40 qd, Toprol XL 50 bid, Ranexa 1000 bid -strict I&O -daily weights. -Per Dr. Garcia/ Bharathi cardiac MRI as outpatient to evaluate HOCM of elderly -Dr. Garcia/Bharathi following appreciate recommendations Pulmonary -HFNC (40Lpm/ 40%FiO2), wean to NC as tolerated Gastrointestinal -no acute changes -stable Renal -CANDY improving -avoid nephrotoxic agents Infectious Diseases -LLE cellulitis, continue unasyn day 6 Wound care FEN -currently diuresing -replete prn keep K >4.5 and Mg >2.5. -Soft/moist/ easy to chew diet Prophylaxis -on eliquis Disposition -monitor in ICU once HFNC weaned off patient can be transferred to telemetry. Visit type - Emergency Visit Emergency Visit: Yes ED Registration Date: 12/15/18 Care time: The patient presented to the Emergency Department on the above date and was hospitalized for further evaluation of their emergent condition. - New Patient This patient is new to me today: No - Critical Care Critical Care patient: Yes Total Critical Care Time (in minutes): 40 Critical Care Statement: The care of this patient involved high complexity decision making to prevent further life threatening deterioration of the patient 's condition and/or to evaluate & treat vital organ system(s) failure or risk of failure. ATTENDING PHYSICIAN STATEMENT I saw and evaluated the patient. I reviewed the resident's note and discussed the case with the resident. I agree with the resident's findings and plan as documented. SUBJECTIVE: OBJECTIVE: ASSESSMENT AND PLAN:
--- NOTE | 2018-12-22 15:47 | PN ---
Teaching Attending Note Name of Resident: Sheron Richey ATTENDING PHYSICIAN STATEMENT I saw and evaluated the patient. I reviewed the resident's note and discussed the case with the resident. I agree with the resident's findings and plan as documented. SUBJECTIVE: Day 3 s/p PEA arrest, extubated, feeling well, no complaints. OBJECTIVE: Afebrile, hemodynamically Stable. AAO x 3. S/P Extubation - on high flow oxygen therapy via NC Last Vital Signs Temp Pulse Resp BP Pulse Ox 98.6 F 78 22 H 143/56 L 93 L 12/22/18 10:00 12/22/18 12:00 12/22/18 12:00 12/22/18 12:00 12/22/18 09:00 Heart - S1, S2, SM Lungs - few basal crackles Abdomen- Soft, non-tender. Extremities - LLE cellulitis much improved, no further erythema/tenderness. Neuro - AAO x 3. Tone/Power normal all 4 extremities. Laboratory Results - last 24 hr 12/22/18 12/22/18 06:00 06:00 WBC 8.0 RBC 3.26 L Hgb 10.9 L Hct 32.4 L MCV 99.5 H MCH 33.3 MCHC 33.5 RDW 15.6 Plt Count 171 MPV 9.1 Sodium 143 Potassium 3.6 Chloride 102 Carbon Dioxide 37 H Anion Gap 5 L BUN 24.0 H Creatinine 0.9 Est GFR (CKD-EPI)AfAm 98.55 Est GFR (CKD-EPI)NonAf 85.03 Random Glucose 98 Calcium 8.6 Phosphorus 3.1 Magnesium 2.5 H Total Bilirubin 0.8 AST 26 ALT 42 Alkaline Phosphatase 71 Total Protein 6.0 L Albumin 3.0 L Current Medications Generic Name Dose Route Start Last Admin Trade Name Freq PRN Reason Stop Dose Admin Albuterol Sulfate 2 puff 12/15/18 20:10 Ventolin Hfa Inhaler - IH Q4H PRN SHORT OF BREATH/WHEEZING Apixaban 5 mg 12/19/18 22:00 12/22/18 09:03 Eliquis - PO 5 mg BID JONH Administration Atorvastatin Calcium 40 mg 12/15/18 22:00 12/21/18 21:52 Lipitor - PO 40 mg HS JONH Administration Ezetimibe 10 mg 12/16/18 10:00 12/22/18 09:04 Zetia - PO 10 mg DAILY JONH Administration Eplerenone 25 mg 12/15/18 22:00 12/22/18 09:38 Eplerenone PO 25 mg BID JONH Administration Ferrous Sulfate 325 mg 12/17/18 08:00 12/22/18 08:59 Feosol - PO 325 mg BIDWM JONH Administration Furosemide 40 mg 12/19/18 14:00 12/22/18 14:32 Lasix Injection - IVPUSH 40 mg BID@0600,1400 JONH Administration Ampicillin Sodium/Sulbactam 100 mls @ 200 mls/hr 12/16/18 15:00 12/22/18 14: 38 Sodium 1.5 gm/ Sodium Chloride IVPB 200 mls/hr Q6H-IV JONH Administration Norepinephrine Bitartrate 8, 500 mls @ 10.84 mls/hr 12/19/18 21:00 12/20/18 06:00 000 mcg/ Dextrose IV 0.03 mcg/kg/min ASDIR JONH 10.84 mls/hr Titration Protocol 0.03 MCG/KG/MIN Propofol 1,000,000 mcg in 100 mls @ 2.892 mls/hr 12/19/18 23:30 12/21/18 06: 15 Diprivan - IVPB 30 mcg/kg/min TITR JONH 17.352 mls/hr Administration Protocol 5 MCG/KG/MIN Lamotrigine 25 mg 12/16/18 10:00 12/22/18 09:41 Lamictal - PO 25 mg DAILY JONH Administration Metoprolol Succinate 50 mg 12/15/18 22:00 12/22/18 09:02 Toprol Xl - PO 50 mg BID JONH Administration Olanzapine 2.5 mg 12/17/18 22:00 12/21/18 21:53 Zyprexa - PO 2.5 mg HS JONH Administration Ranolazine 1,000 mg 12/15/18 22:00 12/22/18 14:31 Ranexa - PO 1,000 mg BID JONH Administration Home Medications Medication Instructions Recorded Aspirin [ASA] 81 mg PO DAILY 01/09/12 Sertraline HCl [Zoloft] 200 mg PO DAILY 01/09/12 Albuterol Sulfate Inhaler - 1 - 2 puff IH PRN PRN MDD Q4-6 12/15/18 [Ventolin HFA Inhaler -] hours Atorvastatin Ca [Lipitor] 40 mg PO HS 12/15/18 Bumetanide 2 mg PO BID 12/15/18 Cholecalciferol (Vitamin D3) 1,000 mg PO DAILY 12/15/18 [Vitamin D3] Eplerenone 25 mg PO BID 12/15/18 Ezetimibe 10 mg PO DAILY 12/15/18 Lamotrigine [Lamictal] 25 mg PO DAILY 12/15/18 Metoprolol Succinate [Toprol Xl] 50 mg PO BID 12/15/18 Ranolazine [Ranexa] 1,000 mg PO BID 12/15/18 Umeclidinium [place] [Incruse 1 puff IH DAILY 12/15/18 Ellipta] Fluticasone/Vilanterol [Breo 1 puff IN DAILY 12/16/18 Ellipta 200-25 Mcg INH] Gabapentin 100 mg PO DAILY 12/16/18 ASSESSMENT AND PLAN: 73 year old male with history of RADHIKA on CPAP, HTN, CRF sec to COPD on 3L Home O2 , Pulmonary HTN, CHF, CAD s/p stent, admitted with LLE Cellulitis and AMS, sustained PEA arrest with hypoxic and hypercapneic respiratory failure. 1. S/p PEA Cardiac arrest secondary to Hypoxia and Hypercapnia - Intubated/ Extubated. TropI peaked 0.19. Cardiology following. 2. Acute Hypoxic Hypercapnic respiratory failure - resolved, s/p intubation/ extubation 12/21/18. Now AAO x 3, breathing spontaneously on 50% via NC. for weaning to NC 4-6L. 3. Acute on chronic Diastolic CHF - CXR - congestive changes with pleural fluid/ atelectasis at bases. Continue IV Lasix diuresis. Monitor electrolytes. I/Os. Daily Weights. 4. LLE cellulitis - failed outpatient therapy. Improving on Unasyn (Day 7). 5. CANDY - improving. 6. Parox Atrial fibrillation/flutter - new - started on Eliquis. Continue Metoprolol. 7. Iron def anemia - no signs of bleeding. Iron supplementation. Work-up as out- patient. 8. CRF sec to COPD/Pulmonary HTN - On Home O2 (4-6L via NC), RADHIKA on CPAP - not compliant with BiPAP at home 9. CAD s/p PCI/Stent - demand ischemia and s/p arrest. Continue BB, Statin, Ranexa. Further recommendations as per Cardiology. 10. HTN - Continue Eplerenone, Toprol XL. For out-patient Cardiac MRI for HOCM of Elderly. 11. Depression/Anxiety - Continue Zyprexa DVT Px - on Eliquis
[2018-12-22] MEDS ORDERED: SODIUM CHLORIDE 1,000 ML IV STA (16:07)
[2018-12-22] MEDS: ALBUTEROL SO4 8 GM HFA INHALER IH PRN (19:57)
[2018-12-22] MEDS: ATORVASTATIN CA 40 MG TABLET (FP) PO SCH (21:12)
[2018-12-22] MEDS: OLANZapine 2.5 MG TABLET PO SCH (21:12)
[2018-12-23] MEDS ORDERED: SODIUM CHLORIDE 100 ML IVPB ONE ×4 (02:53→21:30)
[2018-12-23] MEDS ORDERED: AMPICILLIN NA/SULBACTAM NA 1.5 GM VIAL ONE ×4 (02:53→21:29)
[2018-12-23] MEDS: AMPICILLIN NA/SULBACTAM NA 1.5 GM in SODIUM CHLORIDE 100 ML IVPB SCH ×4 (03:01→21:42)
[2018-12-23] MEDS: FUROSEMIDE 40 MG/4 ML INJECTABLE VIAL IVPUSH SCH ×2 (06:24→13:44)
[2018-12-23 06:54] LABS: HEMATOCRIT 32.9 % (35.4-49); HEMOGLOBIN 10.9 GM/dL (11.7-16.9); MCH 33.3 pg (25.7-33.7); MCHC 33.2 g/dl (32.0-35.9); MEAN CELL VOLUME 100.2 fl (80-96); PLATELET COUNT 181 K/MM3 (134-434); RBC 3.28 M/mm3 (4.00-5.60); RDW 15.2 % (11.9-15.9); WHITE BLOOD COUNT 9.6 K/mm3 (4.0-10.0)
[2018-12-23 07:05] LABS: CALCIUM 8.2 mg/dL (8.5-10.1); CREATININE 0.9 mg/dL (0.55-1.3); MAGNESIUM 2.4 mg/dL (1.8-2.4); PHOSPHOROUS 3.9 mg/dL (2.5-4.9); POTASSIUM 3.7 mmol/L (3.5-5.1)
[2018-12-23] MEDS: FERROUS SO4 325 MG TABLET (FP) PO SCH ×2 (08:46→17:27)
[2018-12-23] MEDS: EZETIMIBE 10 MG TABLET (FP) PO SCH (09:27)
[2018-12-23] MEDS: EPLERENONE 25 MG TABLET PO SCH ×2 (09:27→21:44)
[2018-12-23] MEDS: RANOLAZINE E.R. 1,000 MG TABLET (FP) PO SCH ×2 (09:27→21:42)
[2018-12-23] MEDS: lamoTRIgine 25 MG TABLET PO SCH (09:27)
[2018-12-23] MEDS: APIXABAN 5 MG TABLET PO SCH ×2 (09:27→21:42)
[2018-12-23] MEDS: ALBUTEROL SO4 8 GM HFA INHALER IH PRN (09:48)
--- NOTE | 2018-12-23 10:41 | PN ---
Progress Note, Physician History of Present Illness: Remains on HFO2, remains in NSR. - Current Medication List Current Medications: Active Medications Albuterol Sulfate (Ventolin Hfa Inhaler -) 2 puff IH Q4H PRN PRN Reason: SHORT OF BREATH/WHEEZING Last Admin: 12/23/18 09:48 Dose: 2 puff Apixaban (Eliquis -) 5 mg PO BID [facility] Last Admin: 12/23/18 09:27 Dose: 5 mg Atorvastatin Calcium (Lipitor -) 40 mg PO HS [facility] Last Admin: 12/22/18 21:12 Dose: 40 mg Budesonide/Formoterol Fumarate (Symbicort 80/4.5mcg -) 2 puff IH DAILY [facility] Ezetimibe (Zetia -) 10 mg PO DAILY [facility] Last Admin: 12/23/18 09:27 Dose: 10 mg Eplerenone (Eplerenone) 25 mg PO BID [facility] Last Admin: 12/23/18 09:27 Dose: 25 mg Ferrous Sulfate (Feosol -) 325 mg PO BIDWM [facility] Last Admin: 12/23/18 08:46 Dose: 325 mg Furosemide (Lasix Injection -) 40 mg IVPUSH BID@0600,1400 [facility] Last Admin: 12/23/18 06:24 Dose: 40 mg Ampicillin Sodium/Sulbactam (Sodium 1.5 gm/ Sodium Chloride) 100 mls @ 200 mls/ hr IVPB Q6H-IV [facility] Last Admin: 12/23/18 08:56 Dose: 200 mls/hr Lamotrigine (Lamictal -) 25 mg PO DAILY [facility] Last Admin: 12/23/18 09:27 Dose: 25 mg Metoprolol Succinate (Toprol Xl -) 50 mg PO BID [facility] Last Admin: 12/23/18 09:27 Dose: 50 mg Olanzapine (Zyprexa -) 2.5 mg PO HS [facility] Last Admin: 12/22/18 21:12 Dose: 2.5 mg Ranolazine (Ranexa -) 1,000 mg PO BID [facility] Last Admin: 12/23/18 09:27 Dose: 1,000 mg - Objective Vital Signs: Vital Signs Temperature 98.4 F 12/23/18 10:21 Pulse Rate 75 12/23/18 10:00 Respiratory Rate 27 H 12/23/18 10:00 Blood Pressure 102/68 12/23/18 10:00 O2 Sat by Pulse Oximetry (%) 96 12/23/18 08:49 Constitutional: Yes: No Distress, Calm Neck: Yes: Supple Cardiovascular: Yes: Regular Rate and Rhythm Respiratory: Yes: Regular, Diminished, Other (HFO2) Gastrointestinal: Yes: Normal Bowel Sounds, Soft, Abdomen, Obese Edema: Yes Edema: LLE: 2+, RLE: 2+ Labs: CBC, BMP 12/23/18 05:30 12/23/18 05:30 INR, PTT INR 1.21 (0.83-1.09) H 12/19/18 22:23 - ....Imaging Chest X-ray: Report Reviewed (Congestion and pleural effusions improving) EKG: Report Reviewed (Tele: NSR, no PAF recurrence) Problem List - Problems (1) Coronary artery disease Code(s): I25.10 - ATHSCL HEART DISEASE OF [place] CORONARY ARTERY W/O ANG PCTRS Qualifiers: Coronary Disease-Associated Artery/Lesion type: [place] artery [place] vs. transplanted heart: [place] heart Associated angina: without angina Qualified Code(s): I25.10 - Atherosclerotic heart disease of [place] coronary artery without angina pectoris (2) S/P right coronary artery (RCA) stent placement Code(s): Z95.5 - PRESENCE OF CORONARY ANGIOPLASTY IMPLANT AND GRAFT (3) Hyperlipidemia Code(s): E78.5 - HYPERLIPIDEMIA, UNSPECIFIED Qualifiers: Hyperlipidemia type: pure hypercholesterolemia Qualified Code(s): E78.00 - Pure hypercholesterolemia, unspecified; E78.0 - Pure hypercholesterolemia (4) RADHIKA (obstructive sleep apnea) Code(s): G47.33 - OBSTRUCTIVE SLEEP APNEA (ADULT) (PEDIATRIC) (5) Pulmonary hypertension assoc with unclear multi-factorial mechanisms Code(s): I27.29 - OTHER SECONDARY PULMONARY HYPERTENSION (6) Toxic metabolic encephalopathy Code(s): G92 - TOXIC ENCEPHALOPATHY (7) Hypertensive cardiomyopathy Code(s): I11.9 - HYPERTENSIVE HEART DISEASE WITHOUT HEART FAILURE; I43 - CARDIOMYOPATHY IN DISEASES CLASSIFIED ELSEWHERE Qualifiers: Heart failure presence: with heart failure Qualified Code(s): I11.0 - Hypertensive heart disease with heart failure; I43 - Cardiomyopathy in diseases classified elsewhere (8) CHF exacerbation Code(s): I50.9 - HEART FAILURE, UNSPECIFIED Qualifiers: Heart failure type: diastolic Qualified Code(s): I50.33 - Acute on chronic diastolic (congestive) heart failure (9) COPD exacerbation Code(s): J44.1 - CHRONIC OBSTRUCTIVE PULMONARY DISEASE W (ACUTE) EXACERBATION (10) Hypertrophic cardiomyopathy Code(s): I42.2 - OTHER HYPERTROPHIC CARDIOMYOPATHY (11) Atrial flutter with controlled response Code(s): I48.92 - UNSPECIFIED ATRIAL FLUTTER Assessment/Plan 11/12/2018 R&LHc Elevated right-sided pressures, moderate pulm HTN, normal PVRI , elevated PCWP, elevated LVEDP, decreased cardiac output, 1 vessel CAD with occluded prox RCA filling via bridging collaterals, hyperdynamic systolic function 11/08/2018 Echo: Mod cLVH with normal systolic function LVEF 60-65%, grade II diastolic dysfunction with elevated filling pressures, hyperdynamic mid cavity with obliteration suggestive of mid cavity obstruction, resting left ventricular outflow tract gradient 25 mmHg increasing to 33 mmHg with Valsalva, mild LAE, normal RV size and fxn, mild-mod MR, mild TR RVSP 33 mmHg 09/22/2017 Dobutamine Myoview: Moderate size inferior perfusion defect wth mild ischemia, normal LVEF 88% 12/16/2018 LE US: No DVT bilaterally, moderate atherosclerosis w/o stenosis bilaterally 12/18/2018 HCT: No acute changes 1. Post PEA arrest 2. Acute on chronic hypercapneic, hypoxemic respiratory failure with toxic metabolic encephalopathy 3. Acute on chronic diastolic heart failure, moderate functional MS and moderate pulmonary HTN 4. Acute exacerbation of COPD 5. OSAS 6. 1 vessel CAD h/o RCA stent with demand ischemia 7. Hypertensive heart disease/HOCM of elderly 8. Paroxysmal AF/flutter->NSR ([id number]) 9. Hyperlipidemia 10. Sick euthyroid syndrome 11. LLE cellulitis 12. CANDY improving PLAN: 1. Continue IV diuresis with monitoring renal function and electrolytes 2. Troponin downtrending 3. Wean FIO2 as tolerated, BD as needed 4. Cardiac MRI as outpatient to evaluate HOCM of elderly 5. Continue Eliquis 5 mg BID, Eplerenone 25 BID, Zetia 10 mg QD, Lipitor 40 mg QD, Toprol XL 50 mg BID and Ranexa 1000 mg BID as tolerated 6. Wound care and empiric antibiotic course
--- NOTE | 2018-12-23 10:45 | PN ---
Progress Note, RO[facility] - Note Progress Note: Selected Entries 12/22/18 12/23/18 12/23/18 10:17 02:00 06:00 Breakfast Lunch NPO Temperature 98.2 F 98.7 F 12/23/18 12/23/18 08:00 10:21 Breakfast 100% Lunch Temperature 98.1 F 98.4 F Laboratory Tests 12/23/18 05:30 WBC 9.6 Started on soft diet/thin liquids yesterday with reported good tolerance and fair appetite. On [place]. OOB.Drinking sips of water without overt difficulty. Voice still dysphonic. Still forgetful. No signs of white patches on tongue today. Monitor for signs/symptoms of aspiration post extubation with Dysphonia.
[2018-12-23] MEDS: BUDESONIDE/FORMETEROL FUMARATE 80/4.5 mcg INHALER IH SCH (10:49)
[2018-12-23 11:52] VITALS: BMI 30.5
--- NOTE | 2018-12-23 12:19 | PN ---
Teaching Attending Note Name of Resident: Sheron Richey ATTENDING PHYSICIAN STATEMENT I saw and evaluated the patient. I reviewed the resident's note and discussed the case with the resident. I agree with the resident's findings and plan as documented. SUBJECTIVE: Day 4 s/p PEA arrest, extubated, feeling well, no complaints. OBJECTIVE: Afebrile, hemodynamically Stable. AAO x 3. S/P Extubation - on high flow oxygen therapy via NC FiO2 50% Last Vital Signs Temp Pulse Resp BP Pulse Ox 98.4 F 75 25 H 102/68 96 12/23/18 10:21 12/23/18 10:00 12/23/18 11:54 12/23/18 11:54 12/23/18 08:49 Heart - S1, S2, SM Lungs - few basal crackles Abdomen- Soft, non-tender. Extremities - LLE cellulitis much improved, no further erythema/tenderness. Neuro - AAO x 3. Tone/Power normal all 4 extremities. Laboratory Results - last 24 hr 12/23/18 12/23/18 05:30 05:30 WBC 9.6 RBC 3.28 L Hgb 10.9 L Hct 32.9 L MCV 100.2 H MCH 33.3 MCHC 33.2 RDW 15.2 Plt Count 181 MPV 9.0 Sodium 143 Potassium 3.7 Chloride 101 Carbon Dioxide 37 H Anion Gap 5 L BUN 27.0 H Creatinine 0.9 Est GFR (CKD-EPI)AfAm 98.55 Est GFR (CKD-EPI)NonAf 85.03 Random Glucose 101 Calcium 8.2 L Phosphorus 3.9 Magnesium 2.4 Current Medications Generic Name Dose Route Start Last Admin Trade Name Freq PRN Reason Stop Dose Admin Albuterol Sulfate 2 puff 12/15/18 20:10 12/23/18 09:48 Ventolin Hfa Inhaler - IH 2 puff Q4H PRN Administration SHORT OF BREATH/WHEEZING Apixaban 5 mg 12/19/18 22:00 12/23/18 09:27 Eliquis - PO 5 mg BID JONH Administration Atorvastatin Calcium 40 mg 12/15/18 22:00 12/22/18 21:12 Lipitor - PO 40 mg HS JONH Administration Budesonide/Formoterol Fumarate 2 puff 12/23/18 10:00 12/23/18 10:49 Symbicort 80/4.5mcg - IH 2 puff DAILY JONH Administration Ezetimibe 10 mg 12/16/18 10:00 12/23/18 09:27 Zetia - PO 10 mg DAILY JONH Administration Eplerenone 25 mg 12/15/18 22:00 12/23/18 09:27 Eplerenone PO 25 mg BID JONH Administration Ferrous Sulfate 325 mg 12/17/18 08:00 12/23/18 08:46 Feosol - PO 325 mg BIDWM JONH Administration Furosemide 40 mg 12/19/18 14:00 12/23/18 06:24 Lasix Injection - IVPUSH 40 mg BID@0600,1400 JONH Administration Ampicillin Sodium/Sulbactam 100 mls @ 200 mls/hr 12/16/18 15:00 12/23/18 08: 56 Sodium 1.5 gm/ Sodium Chloride IVPB 200 mls/hr Q6H-IV JONH Administration Lamotrigine 25 mg 12/16/18 10:00 12/23/18 09:27 Lamictal - PO 25 mg DAILY JONH Administration Metoprolol Succinate 50 mg 12/15/18 22:00 12/23/18 09:27 Toprol Xl - PO 50 mg BID JONH Administration Olanzapine 2.5 mg 12/17/18 22:00 12/22/18 21:12 Zyprexa - PO 2.5 mg HS JONH Administration Ranolazine 1,000 mg 12/15/18 22:00 12/23/18 09:27 Ranexa - PO 1,000 mg BID JONH Administration ASSESSMENT AND PLAN: 73 year old male with history of RADHIKA on CPAP, HTN, CRF sec to COPD on 3L Home O2 , Pulmonary HTN, CHF, CAD s/p stent, admitted with LLE Cellulitis and AMS, sustained PEA arrest with hypoxic and hypercapneic respiratory failure. 1. Acute Hypoxic Hypercapnic respiratory failure s/p PEA Cardiac arrest secondary to Hypoxia and Hypercapnia - resolved, s/p intubation/extubation . Now AAO x 3, breathing spontaneously on 50% via NC. for weaning to NC 4-6L. 2. Acute on Chronic Diastolic CHF - CXR - congestive changes with pleural fluid/ atelectasis at bases. Continue IV Lasix diuresis. Monitor electrolytes. I/Os. Daily Weights. 3. LLE cellulitis - failed outpatient therapy. Improving on Unasyn (Day 8). To complete 10 day course. 4. CANDY - improved. 5. Parox Atrial fibrillation/flutter - new - started on Eliquis. Continue Metoprolol. Cardiology following. 6. Iron def anemia - no signs of bleeding. Iron supplementation. Work-up as out- patient. 7. CRF sec to COPD/Pulmonary HTN - On Home O2 (4-6L via NC), RADHIKA on CPAP - not compliant with BiPAP at home 8. CAD s/p PCI/Stent - demand ischemia and s/p arrest with mild TropI rise. Continue BB, Statin, Ranexa. Further recommendations as per Cardiology. 9. HTN - Continue Eplerenone, Toprol XL. For out-patient Cardiac MRI for HOCM of Elderly as per Cardio. 10. Depression/Anxiety - Continue Zyprexa. For re-eval by Psychiatry as patient wants to revert to home med Zoloft. Denies suicidal ideation. DVT Px - on Eliquis
--- NOTE | 2018-12-23 12:36 | PN ---
Physical Exam: SUBJECTIVE: Patient seen and examined at bedside. pt has no acute complaints. OBJECTIVE: Vital Signs Period Temp Pulse Resp BP Sys/[place] Pulse Ox Last 24 Hr 98.1 F-98.7 F 68-81 17-27 99-123/47-68 92-96 GENERAL: The patient is awake, alert, and fully oriented, in no acute distress. LUNGS: Breath sounds equal, clear to auscultation bilaterally, no wheezes, no crackles, no accessory muscle use. HEART: irregular rate and rhythm, S1, S2 without murmur, rub or gallop. ABDOMEN: Soft, nontender, nondistended, normoactive bowel sounds, no guarding EXTREMITIES: 2+ pulses, warm, well-perfused, b/l LE edema. SKIN: Warm, dry, normal turgor, no rashes or lesions noted Laboratory Results - last 24 hr 12/23/18 12/23/18 05:30 05:30 WBC 9.6 RBC 3.28 L Hgb 10.9 L Hct 32.9 L MCV 100.2 H MCH 33.3 MCHC 33.2 RDW 15.2 Plt Count 181 MPV 9.0 Sodium 143 Potassium 3.7 Chloride 101 Carbon Dioxide 37 H Anion Gap 5 L BUN 27.0 H Creatinine 0.9 Est GFR (CKD-EPI)AfAm 98.55 Est GFR (CKD-EPI)NonAf 85.03 Random Glucose 101 Calcium 8.2 L Phosphorus 3.9 Magnesium 2.4 Current Medications Albuterol Sulfate (Ventolin Hfa Inhaler -) 2 puff IH Q4H PRN PRN Reason: SHORT OF BREATH/WHEEZING Last Admin: 12/23/18 09:48 Dose: 2 puff Apixaban (Eliquis -) 5 mg PO BID [facility] Last Admin: 12/23/18 09:27 Dose: 5 mg Atorvastatin Calcium (Lipitor -) 40 mg PO HS [facility] Last Admin: 12/22/18 21:12 Dose: 40 mg Budesonide/Formoterol Fumarate (Symbicort 80/4.5mcg -) 2 puff IH DAILY [facility] Last Admin: 12/23/18 10:49 Dose: 2 puff Ezetimibe (Zetia -) 10 mg PO DAILY [facility] Last Admin: 12/23/18 09:27 Dose: 10 mg Eplerenone (Eplerenone) 25 mg PO BID [facility] Last Admin: 12/23/18 09:27 Dose: 25 mg Ferrous Sulfate (Feosol -) 325 mg PO BIDWM [facility] Last Admin: 12/23/18 08:46 Dose: 325 mg Furosemide (Lasix Injection -) 40 mg IVPUSH BID@0600,1400 [facility] Last Admin: 12/23/18 06:24 Dose: 40 mg Ampicillin Sodium/Sulbactam (Sodium 1.5 gm/ Sodium Chloride) 100 mls @ 200 mls/ hr IVPB Q6H-IV [facility] Last Admin: 12/23/18 08:56 Dose: 200 mls/hr Lamotrigine (Lamictal -) 25 mg PO DAILY [facility] Last Admin: 12/23/18 09:27 Dose: 25 mg Metoprolol Succinate (Toprol Xl -) 50 mg PO BID [facility] Last Admin: 12/23/18 09:27 Dose: 50 mg Olanzapine (Zyprexa -) 2.5 mg PO HS [facility] Last Admin: 12/22/18 21:12 Dose: 2.5 mg Ranolazine (Ranexa -) 1,000 mg PO BID [facility] Last Admin: 12/23/18 09:27 Dose: 1,000 mg ASSESSMENT/PLAN: 73 yo M PMH COPD on 4L home O2, pulmonary HTN, RADHIKA, diastolic heart failure, HTN , HLD, CAD s/p RCA DAVID (2003,2004,2018) p/w altered mental status and cellulitis in LLE. Pt was being treated by PMD for cellulitis. During the hospital course, pt had claimed suicidal ideation. In ED, pt had ABG showing chronic CO2 retention. Yesterday, code 99 was called. pt was in cardiac arrest for around 10 min x 2 Epi. ROSC was achieved. pt is s/p intubation and extubation. Pt is now awake and oriented. pt is on HFOT. s/p cardiac arrest -possibly 2/2 acute on chronic diastolic CHF vs COPD -Trop peak to 0.19-->0.09 -Pt had episodes of A.Fib & a. flutter on the tele monitor. Acute Hypoxic Hypercapmic Respiratory Failure - pt with known severe pulm htn -ABG showing CO2 retention, CO2 improving -pt currently HFOT saturating well , wean off back to home O2 ( 4-5 L NC) as tolerated Acute on chronic heart failure with preserved EF -fluid overloaded -c/w lasix BID -ECHO : preserved EF, severely dilated LA, severe mitral annular calcification, moderate -monitor I/Os -Daily Weights Paroxysmal AFib/ Aflutter -new -on eliquis as per cardio recs -cardio following the case -pt is now rate controlled L LE Cellulitis -XRay negative -pt completed augmentin x5d prior to admission. -c/w unasyn (day 6) -erythema improving -Doppler neg for DVT -Doppler indicated B/L arterial pulse Iron def Anemia -no signs of bleeding -iron supplements RADHIKA -recommending CPAP, pt was not compliant at home Acute Metabolic encephalopathy -pt currently awake, alert and oriented -possibly 2/2 hypercapnea -recommended use of CPAP at night -pt denied any thoughts to hurt himself or others. -psych is consulted -pt has a hx of mood disorder ( on zoloft from PMD), zoloft has been held -c/w zyprexa as per psych recs F/E/N: -pt advanced to soft diet DVT ppx: Eliquis Dispo: continue ICU monitoring , pt Full Code Visit type - Emergency Visit Emergency Visit: No - New Patient This patient is new to me today: No - Critical Care Critical Care patient: Yes Total Critical Care Time (in minutes): 36 Critical Care Statement: The care of this patient involved high complexity decision making to prevent further life threatening deterioration of the patient 's condition and/or to evaluate & treat vital organ system(s) failure or risk of failure. - Discharge Referral Referred to [facility] Med P.C.: No ATTENDING PHYSICIAN STATEMENT I saw and evaluated the patient. I reviewed the resident's note and discussed the case with the resident. I agree with the resident's findings and plan as documented. SUBJECTIVE: OBJECTIVE: ASSESSMENT AND PLAN:
--- NOTE | 2018-12-23 15:06 | PN ---
Teaching Attending Note Name of Resident: Thompson Cruz ATTENDING PHYSICIAN STATEMENT I saw and evaluated the patient. I reviewed the resident's note and discussed the case with the resident. I agree with the resident's findings and plan as documented. SUBJECTIVE: Patient seen and examined in the ICU. Remains on HFOT. Wean support is weaned he develops significant hypoxemia. Reports breathing is overall better. No CP. Intake & Output 12/20/18 12/21/18 12/22/18 12/23/18 23:59 23:59 23:59 23:59 Intake Total 1266.4 535 360 500 Output Total 1100 925 Balance 1266.4 535 -740 -425 Weight 216 lb 216 lb 7.903 oz 201 lb 0.985 oz 201 lb 8.04 oz Last Vital Signs Temp Pulse Resp BP Pulse Ox 98.3 F 77 26 H 117/59 L 96 12/23/18 13:44 12/23/18 14:02 12/23/18 14:02 12/23/18 14:02 12/23/18 08:49 Active Medications Albuterol Sulfate (Ventolin Hfa Inhaler -) 2 puff IH Q4H PRN PRN Reason: SHORT OF BREATH/WHEEZING Last Admin: 12/23/18 09:48 Dose: 2 puff Apixaban (Eliquis -) 5 mg PO BID [facility] Last Admin: 12/23/18 09:27 Dose: 5 mg Atorvastatin Calcium (Lipitor -) 40 mg PO HS [facility] Last Admin: 12/22/18 21:12 Dose: 40 mg Budesonide/Formoterol Fumarate (Symbicort 80/4.5mcg -) 2 puff IH DAILY [facility] Last Admin: 12/23/18 10:49 Dose: 2 puff Ezetimibe (Zetia -) 10 mg PO DAILY [facility] Last Admin: 12/23/18 09:27 Dose: 10 mg Eplerenone (Eplerenone) 25 mg PO BID [facility] Last Admin: 12/23/18 09:27 Dose: 25 mg Ferrous Sulfate (Feosol -) 325 mg PO BIDWM [facility] Last Admin: 12/23/18 08:46 Dose: 325 mg Furosemide (Lasix Injection -) 40 mg IVPUSH BID@0600,1400 [facility] Last Admin: 12/23/18 13:44 Dose: 40 mg Ampicillin Sodium/Sulbactam (Sodium 1.5 gm/ Sodium Chloride) 100 mls @ 200 mls/ hr IVPB Q6H-IV [facility] Last Admin: 12/23/18 14:07 Dose: 200 mls/hr Lamotrigine (Lamictal -) 25 mg PO DAILY [facility] Last Admin: 12/23/18 09:27 Dose: 25 mg Metoprolol Succinate (Toprol Xl -) 50 mg PO BID [facility] Last Admin: 12/23/18 09:27 Dose: 50 mg Olanzapine (Zyprexa -) 2.5 mg PO [facility] Last Admin: 12/22/18 21:12 Dose: 2.5 mg Ranolazine (Ranexa -) 1,000 mg PO BID [facility] Last Admin: 12/23/18 09:27 Dose: 1,000 mg Gen: NAD on HFOT Heart: RRR Lung: decreased breath sounds at the bases Abd: soft, nontender Ext: trace edema Intake & Output 12/20/18 12/21/18 12/22/18 12/23/18 23:59 23:59 23:59 23:59 Intake Total 1266.4 535 360 500 Output Total 1100 925 Balance 1266.4 535 -740 -425 Weight 216 lb 216 lb 7.903 oz 201 lb 0.985 oz 201 lb 8.04 oz Last Vital Signs Temp Pulse Resp BP Pulse Ox 98.3 F 77 26 H 117/59 L 96 12/23/18 13:44 12/23/18 14:02 12/23/18 14:02 12/23/18 14:02 12/23/18 08:49 Active Medications Albuterol Sulfate (Ventolin Hfa Inhaler -) 2 puff IH Q4H PRN PRN Reason: SHORT OF BREATH/WHEEZING Last Admin: 12/23/18 09:48 Dose: 2 puff Apixaban (Eliquis -) 5 mg PO BID [facility] Last Admin: 12/23/18 09:27 Dose: 5 mg Atorvastatin Calcium (Lipitor -) 40 mg PO [facility] Last Admin: 12/22/18 21:12 Dose: 40 mg Budesonide/Formoterol Fumarate (Symbicort 80/4.5mcg -) 2 puff IH DAILY [facility] Last Admin: 12/23/18 10:49 Dose: 2 puff Ezetimibe (Zetia -) 10 mg PO DAILY [facility] Last Admin: 12/23/18 09:27 Dose: 10 mg Eplerenone (Eplerenone) 25 mg PO BID [facility] Last Admin: 12/23/18 09:27 Dose: 25 mg Ferrous Sulfate (Feosol -) 325 mg PO BIDWM [facility] Last Admin: 12/23/18 08:46 Dose: 325 mg Furosemide (Lasix Injection -) 40 mg IVPUSH BID@0600,1400 [facility] Last Admin: 12/23/18 13:44 Dose: 40 mg Ampicillin Sodium/Sulbactam (Sodium 1.5 gm/ Sodium Chloride) 100 mls @ 200 mls/ hr IVPB Q6H-IV [facility] Last Admin: 12/23/18 14:07 Dose: 200 mls/hr Lamotrigine (Lamictal -) 25 mg PO DAILY [facility] Last Admin: 12/23/18 09:27 Dose: 25 mg Metoprolol Succinate (Toprol Xl -) 50 mg PO BID [facility] Last Admin: 12/23/18 09:27 Dose: 50 mg Olanzapine (Zyprexa -) 2.5 mg PO HS [facility] Last Admin: 12/22/18 21:12 Dose: 2.5 mg Ranolazine (Ranexa -) 1,000 mg PO BID [facility] Last Admin: 12/23/18 09:27 Dose: 1,000 mg Laboratory Results - last 24 hr 12/23/18 12/23/18 05:30 05:30 WBC 9.6 RBC 3.28 L Hgb 10.9 L Hct 32.9 L MCV 100.2 H MCH 33.3 MCHC 33.2 RDW 15.2 Plt Count 181 MPV 9.0 Sodium 143 Potassium 3.7 Chloride 101 Carbon Dioxide 37 H Anion Gap 5 L BUN 27.0 H Creatinine 0.9 Est GFR (CKD-EPI)AfAm 98.55 Est GFR (CKD-EPI)NonAf 85.03 Random Glucose 101 Calcium 8.2 L Phosphorus 3.9 Magnesium 2.4 ASSESSMENT AND PLAN: s/p Cardiopulmonary Arrest Acute on Chronic Hypoxic and Hypercapneic Respiratory Failure Acute COPD Exacerbation Acute on Chronic Diastolic Heart Failure Pulmonary HTN CAD Paroxysmal Atrial Fibrillation HTN Cellulitis - ABX - continue lasix - monitor urine output, creatinine - rate control - continue anticoagulation - PO as tolerated - Wean O2 support as tolerated, can attempt trial of NIPPV if transfer to [facility] is anticipated Dr Gaming Critical care time spent in reviewing chart, evaluating patient and formulating plan 35 min
--- NOTE | 2018-12-23 16:38 | PN ---
Progress Note (short form) - Note Progress Note: Psych follow up: patient seen for Psych re dereck. Spoke to his who is a Physician and obtained Psych History. patient had seen a Psych for some time and been on Zoloft up to 200mg per day since 2012. No reports of any suicidal behaviour from Depression or from Zoloft. reports along with Patient tha5t ZOloft has been helpful for his mood. Patient is not Psychotic or suicidal at this time. Cognition intact. REC: will restart Zoloft 100mg po od. 2) Patient will follow up with his PVT PHYsician.
--- NOTE | 2018-12-23 17:08 | PN ---
Physical Exam: SUBJECTIVE: Patient seen and examined at the bedside. Patient doing well, denies any cp, sob, abd pain, n/v, dizziness, lightheadedness, numbness, tingling, weakness. States that his breathing is good on the hiflow. Was asking to eat. Family was spoken to at bedside and stated that once insurance issues are resolved, patient will be transfered to [facility] under the care of Dr. Palencia specializing in pulmonary HTN. Patient weaning down off hiflow and if stable can be trialed on Venti-mask. Questions of family were answered at bedside. OBJECTIVE: Vital Signs Period Temp Pulse Resp BP Sys/Govea Pulse Ox Last 24 Hr 98.1 F-98.7 F 68-81 17-27 99-123/43-68 92-96 GENERAL: The patient is awake, alert, and fully oriented, in no acute distress. HEAD: Normal with no signs of trauma. EYES: PERRL, extraocular movements intact, sclera anicteric, conjunctiva clear. NECK: Trachea midline, full range of motion, supple. LUNGS: Breath sounds equal, clear to auscultation bilaterally, decreased breath sounds at the bases bilaterally. HEART: Regular rate and rhythm, S1, S2 without murmur, rub or gallop. ABDOMEN: Soft, nontender, nondistended, normoactive bowel sounds, no guarding, no rebound, no masses. EXTREMITIES: 1+ pulses, warm, well-perfused, 1+ edema. NEUROLOGICAL: Cranial nerves II through XII grossly intact. 5/5 muscle strength bilaterally upper and lower extremities. PSYCH: Normal mood, normal affect. SKIN: Warm, dry, normal turgor, no rashes or lesions noted Laboratory Results - last 24 hr 12/23/18 12/23/18 05:30 05:30 WBC 9.6 RBC 3.28 L Hgb 10.9 L Hct 32.9 L MCV 100.2 H MCH 33.3 MCHC 33.2 RDW 15.2 Plt Count 181 MPV 9.0 Sodium 143 Potassium 3.7 Chloride 101 Carbon Dioxide 37 H Anion Gap 5 L BUN 27.0 H Creatinine 0.9 Est GFR (CKD-EPI)AfAm 98.55 Est GFR (CKD-EPI)NonAf 85.03 Random Glucose 101 Calcium 8.2 L Phosphorus 3.9 Magnesium 2.4 Active Medications Generic Name Dose Route Start Last Admin Trade Name Freq PRN Reason Stop Dose Admin Albuterol Sulfate 2 puff 12/15/18 20:10 12/23/18 09:48 Ventolin Hfa Inhaler - IH 2 puff Q4H PRN Administration SHORT OF BREATH/WHEEZING Apixaban 5 mg 12/19/18 22:00 12/23/18 09:27 Eliquis - PO 5 mg BID [facility] Administration Atorvastatin Calcium 40 mg 12/15/18 22:00 12/22/18 21:12 Lipitor - PO 40 mg HS [facility] Administration Budesonide/Formoterol Fumarate 2 puff 12/23/18 10:00 12/23/18 10:49 Symbicort 80/4.5mcg - IH 2 puff DAILY [facility] Administration Ezetimibe 10 mg 12/16/18 10:00 12/23/18 09:27 Zetia - PO 10 mg DAILY [facility] Administration Eplerenone 25 mg 12/15/18 22:00 12/23/18 09:27 Eplerenone PO 25 mg BID [facility] Administration Ferrous Sulfate 325 mg 12/17/18 08:00 12/23/18 08:46 Feosol - PO 325 mg BIDWM [facility] Administration Furosemide 40 mg 12/19/18 14:00 12/23/18 13:44 Lasix Injection - IVPUSH 40 mg BID@0600,1400 [facility] Administration Ampicillin Sodium/Sulbactam 100 mls @ 200 mls/hr 12/16/18 15:00 12/23/18 14: 07 Sodium 1.5 gm/ Sodium Chloride IVPB 200 mls/hr Q6H-IV [facility] Administration Lamotrigine 25 mg 12/16/18 10:00 12/23/18 09:27 Lamictal - PO 25 mg DAILY [facility] Administration Metoprolol Succinate 50 mg 12/15/18 22:00 12/23/18 09:27 Toprol Xl - PO 50 mg BID [facility] Administration Ranolazine 1,000 mg 12/15/18 22:00 12/23/18 09:27 Ranexa - PO 1,000 mg BID [facility] Administration Sertraline HCl 100 mg 12/24/18 10:00 Zoloft - PO DAILY [facility] ASSESSMENT/PLAN: 73 year old male with a medical history of COPD (on home O2), pulmonary hypertension, sleep apnea, CHFpEF (60-65%), hypertension, hyperlipidemia, CAD s/ p right coronary artery stent presented for weakness and somnolence, admitted for treatment of hypoxic, hypercapnic respiratory failure 2/2 COPD/CHF exacerbation is transferred to ICU s/p cardiac arrest. Neurological/MSK -AO to self and location, aware of current medical situation. -continue zyprexa -Patient up and out of bed, physical therapy today, encouraged to continue with PT -Dr. Jackson consulted, recs appreciated Cardiovascular -Cardiac Arrest: regained ROSC after 10 minutes and 2 rounds of epinephrine. Most likely cause of arrest is hypoxia/hypercapnia due to non-compliance with non-invasive O2 delivery, however we will evaluate for alternative causes of arrest -chest X ray showing congestive changes/ atelectasis -EKG ordered - afib with no new ischemic changes from prior EKG -Echo showing no wall motion abnormality, EF 60-65%, LA severely dilated -troponinemia likely 2/2 cardiac arrest and hypoxia -> now down trending -continue to diurese with lasix 40mg IVpush BID -continue eliquis 5 bid -Per Dr. Garcia/Bharathi, consider cardioversion if compliance with Eliquis is assured and if AF persists -continue eplerenone 25 bid, Zetia 10 qd, Lipitor 40 qd, Toprol XL 50 bid, Ranexa 1000 bid -strict I&O -daily weights. -Per Dr. Garcia/ Bharathi cardiac MRI as outpatient to evaluate HOCM of elderly -Dr. Garcia/Bharathi following appreciate recommendations Pulmonary -HFNC (40Lpm/30%FiO2), wean to NC or Venti-mask as tolerated - hx of pulmonary HTN, transfer to [facility] when insurance issues resolved to the service of Dr. Palencia Gastrointestinal -no acute changes Renal -CANDY improving, CRE 0.9 today -avoid nephrotoxic agents -Lasix drip 5mls/hr Infectious Diseases -LLE cellulitis, continue unasyn day 8 -Wound care FEN -no standing fluids -continue to monitor electrolytes and replete as necessary -Soft diet Prophylaxis -on eliquis Disposition -monitor in ICU once HFNC weaned off patient can be transferred to telemetry. -once insurance issues resolved, may transfer to [facility] Visit type - Emergency Visit Emergency Visit: No - New Patient This patient is new to me today: Yes Date on this admission: 12/23/18 - Critical Care Critical Care patient: Yes Total Critical Care Time (in minutes): 35 Critical Care Statement: The care of this patient involved high complexity decision making to prevent further life threatening deterioration of the patient 's condition and/or to evaluate & treat vital organ system(s) failure or risk of failure.
[2018-12-23] MEDS ORDERED: PT OWN MED DRAWER 7, Y5N ONE ×2 (18:28→22:37)
[2018-12-23] MEDS: FUROSEMIDE INJECTION 100 MG in DEXTROSE 5%-WATER - 90 ML IVPB SCH (20:01)
[2018-12-23] MEDS: ATORVASTATIN CA 40 MG TABLET (FP) PO SCH (21:42)
[2018-12-23] MEDS: INCRUSE ELLIPTA 62.5 MCG PO SCH (22:36)
[2018-12-24] MEDS ORDERED: SODIUM CHLORIDE 100 ML IVPB ONE ×3 (02:44→15:11)
[2018-12-24] MEDS ORDERED: AMPICILLIN NA/SULBACTAM NA 1.5 GM VIAL ONE ×3 (02:44→15:11)
[2018-12-24] MEDS: AMPICILLIN NA/SULBACTAM NA 1.5 GM in SODIUM CHLORIDE 100 ML IVPB SCH ×3 (02:56→15:13)
[2018-12-24 06:32] LABS: CALCIUM 7.9 mg/dL (8.5-10.1); CREATININE 1.2 mg/dL (0.55-1.3); MAGNESIUM 2.4 mg/dL (1.8-2.4); PHOSPHOROUS 3.9 mg/dL (2.5-4.9); POTASSIUM 3.7 mmol/L (3.5-5.1)
[2018-12-24 06:50] LABS: HEMATOCRIT 32.1 % (35.4-49); HEMOGLOBIN 10.8 GM/dL (11.7-16.9); MCH 33.1 pg (25.7-33.7); MCHC 33.6 g/dl (32.0-35.9); MEAN CELL VOLUME 98.5 fl (80-96); MEAN PLT VOLUME 8.7 fl (7.5-11.1); RBC 3.26 M/mm3 (4.00-5.60); WHITE BLOOD COUNT 8.8 K/mm3 (4.0-10.0)
[2018-12-24] MEDS: FERROUS SO4 325 MG TABLET (FP) PO SCH ×2 (08:39→17:49)
[2018-12-24 08:56] LABS: PLATELET COUNT 177 K/MM3 (134-434)
--- NOTE | 2018-12-24 09:57 | PN ---
Progress Note, Physician History of Present Illness: Remains on HFO2, remains in NSR, placed on Lasix gtt to facilitate diuresis. - Current Medication List Current Medications: Active Medications Albuterol Sulfate (Ventolin Hfa Inhaler -) 2 puff IH Q4H PRN PRN Reason: SHORT OF BREATH/WHEEZING Last Admin: 12/23/18 09:48 Dose: 2 puff Apixaban (Eliquis -) 5 mg PO BID [facility] Last Admin: 12/23/18 21:42 Dose: 5 mg Atorvastatin Calcium (Lipitor -) 40 mg PO HS [facility] Last Admin: 12/23/18 21:42 Dose: 40 mg Budesonide/Formoterol Fumarate (Symbicort 80/4.5mcg -) 2 puff IH DAILY [facility] Last Admin: 12/23/18 10:49 Dose: 2 puff Ezetimibe (Zetia -) 10 mg PO DAILY [facility] Last Admin: 12/23/18 09:27 Dose: 10 mg Eplerenone (Eplerenone) 25 mg PO BID [facility] Last Admin: 12/23/18 21:44 Dose: 25 mg Ferrous Sulfate (Feosol -) 325 mg PO BIDWM [facility] Last Admin: 12/24/18 08:39 Dose: 325 mg Ampicillin Sodium/Sulbactam (Sodium 1.5 gm/ Sodium Chloride) 100 mls @ 200 mls/ hr IVPB Q6H-IV [facility] Last Admin: 12/24/18 08:39 Dose: 200 mls/hr Furosemide 100 mg/ Dextrose 100 mls @ 5 mls/hr IVPB TITR [facility]; Protocol Last Admin: 12/23/18 20:01 Dose: 5 mg/hr, 5 mls/hr Lamotrigine (Lamictal -) 25 mg PO DAILY [facility] Last Admin: 12/23/18 09:27 Dose: 25 mg Metoprolol Succinate (Toprol Xl -) 50 mg PO BID [facility] Last Admin: 12/23/18 21:42 Dose: 50 mg Patient's Own Med( Incruse Ellipta 62.5 Mcg) 1 each PO DAILY [facility] Last Admin: 12/23/18 22:36 Dose: Not Given Ranolazine (Ranexa -) 1,000 mg PO BID [facility] Last Admin: 12/23/18 21:42 Dose: 1,000 mg Sertraline HCl (Zoloft -) 100 mg PO DAILY [facility] - Objective Vital Signs: Vital Signs Temperature 99.3 F 12/24/18 02:00 Pulse Rate 67 12/24/18 08:00 Respiratory Rate 22 H 12/24/18 08:00 Blood Pressure 99/47 L 12/24/18 08:00 O2 Sat by Pulse Oximetry (%) 94 L 12/24/18 09:00 Constitutional: Yes: No Distress, Calm Neck: Yes: Supple Cardiovascular: Yes: Regular Rate and Rhythm Respiratory: Yes: Regular, Diminished, Other (HFO2) Gastrointestinal: Yes: Soft, Hypoactive Bowel Sounds Edema: Yes Edema: LLE: 1+, RLE: 1+ Labs: CBC, BMP 12/24/18 05:10 12/24/18 05:10 INR, PTT INR 1.21 (0.83-1.09) H 12/19/18 22:23 - ....Imaging Chest X-ray: Report Reviewed (Congestion and bilateral pleural effusion) EKG: Report Reviewed (Tele: NSR) Problem List - Problems (1) Coronary artery disease Code(s): I25.10 - ATHSCL HEART DISEASE OF [place] CORONARY ARTERY W/O ANG PCTRS Qualifiers: Coronary Disease-Associated Artery/Lesion type: [place] artery [place] vs. transplanted heart: [place] heart Associated angina: without angina Qualified Code(s): I25.10 - Atherosclerotic heart disease of [place] coronary artery without angina pectoris (2) S/P right coronary artery (RCA) stent placement Code(s): Z95.5 - PRESENCE OF CORONARY ANGIOPLASTY IMPLANT AND GRAFT (3) Hyperlipidemia Code(s): E78.5 - HYPERLIPIDEMIA, UNSPECIFIED Qualifiers: Hyperlipidemia type: pure hypercholesterolemia Qualified Code(s): E78.00 - Pure hypercholesterolemia, unspecified; E78.0 - Pure hypercholesterolemia (4) RADHIKA (obstructive sleep apnea) Code(s): G47.33 - OBSTRUCTIVE SLEEP APNEA (ADULT) (PEDIATRIC) (5) Pulmonary hypertension assoc with unclear multi-factorial mechanisms Code(s): I27.29 - OTHER SECONDARY PULMONARY HYPERTENSION (6) Toxic metabolic encephalopathy Code(s): G92 - TOXIC ENCEPHALOPATHY (7) Hypertensive cardiomyopathy Code(s): I11.9 - HYPERTENSIVE HEART DISEASE WITHOUT HEART FAILURE; I43 - CARDIOMYOPATHY IN DISEASES CLASSIFIED ELSEWHERE Qualifiers: Heart failure presence: with heart failure Qualified Code(s): I11.0 - Hypertensive heart disease with heart failure; I43 - Cardiomyopathy in diseases classified elsewhere (8) CHF exacerbation Code(s): I50.9 - HEART FAILURE, UNSPECIFIED Qualifiers: Heart failure type: diastolic Qualified Code(s): I50.33 - Acute on chronic diastolic (congestive) heart failure (9) COPD exacerbation Code(s): J44.1 - CHRONIC OBSTRUCTIVE PULMONARY DISEASE W (ACUTE) EXACERBATION (10) Hypertrophic cardiomyopathy Code(s): I42.2 - OTHER HYPERTROPHIC CARDIOMYOPATHY (11) Atrial flutter with controlled response Code(s): I48.92 - UNSPECIFIED ATRIAL FLUTTER Assessment/Plan 11/12/2018 R&LHc Elevated right-sided pressures, moderate pulm HTN, normal PVRI , elevated PCWP, elevated LVEDP, decreased cardiac output, 1 vessel CAD with occluded prox RCA filling via bridging collaterals, hyperdynamic systolic function 11/08/2018 Echo: Mod cLVH with normal systolic function LVEF 60-65%, grade II diastolic dysfunction with elevated filling pressures, hyperdynamic mid cavity with obliteration suggestive of mid cavity obstruction, resting left ventricular outflow tract gradient 25 mmHg increasing to 33 mmHg with Valsalva, mild LAE, normal RV size and fxn, mild-mod MR, mild TR RVSP 33 mmHg 09/22/2017 Dobutamine Myoview: Moderate size inferior perfusion defect wth mild ischemia, normal LVEF 88% 12/16/2018 LE US: No DVT bilaterally, moderate atherosclerosis w/o stenosis bilaterally 12/18/2018 HCT: No acute changes 1. Post PEA arrest 2. Acute on chronic hypercapneic, hypoxemic respiratory failure with toxic metabolic encephalopathy 3. Acute on chronic diastolic heart failure, moderate functional MS and moderate pulmonary HTN 4. Acute exacerbation of COPD 5. OSAS 6. 1 vessel CAD h/o RCA stent with demand ischemia 7. Hypertensive heart disease/HOCM of elderly 8. Paroxysmal AF/flutter->NSR ([id number]) on Eliquis 9. Hyperlipidemia 10. Sick euthyroid syndrome 11. LLE cellulitis 12. CANDY improving PLAN: 1. Continue Lasix gtt with monitoring diuretic response, renal function and electrolytes 2. Troponin downtrending 3. Wean FIO2 as tolerated, BD as needed 4. Cardiac MRI as outpatient to evaluate HOCM of elderly 5. Continue Eliquis 5 mg BID, Eplerenone 25 BID, Zetia 10 mg QD, Lipitor 40 mg QD, Toprol XL 50 mg BID and Ranexa 1000 mg BID as tolerated 6. Wound care and empiric antibiotic course 7. Awaiting transfer to [facility] once FIO2 requirements decrease
[2018-12-24] MEDS ORDERED: SERTRALINE HCL 50 MG TABLET (FP) PO SCH (10:00)
[2018-12-24] MEDS: EZETIMIBE 10 MG TABLET (FP) PO SCH (10:39)
[2018-12-24] MEDS: APIXABAN 5 MG TABLET PO SCH (10:39)
[2018-12-24] MEDS: RANOLAZINE E.R. 1,000 MG TABLET (FP) PO SCH (10:39)
[2018-12-24] MEDS: EPLERENONE 25 MG TABLET PO SCH (10:40)
[2018-12-24] MEDS: lamoTRIgine 25 MG TABLET PO SCH (10:40)
[2018-12-24] MEDS: INCRUSE ELLIPTA 62.5 MCG PO SCH (10:44)
[2018-12-24] MEDS: BUDESONIDE/FORMETEROL FUMARATE 80/4.5 mcg INHALER IH SCH (10:45)
--- NOTE | 2018-12-24 11:25 | PN ---
Physical Exam: SUBJECTIVE: Patient seen and examined at the bedside. Attempted to wean off the high flow but was unsuccessful. Patient expressed that he still had some discomfort in his ribs from CPR but overall felt he was doing better. The patient stated he wanted to be transferred to [place] as soon as possible. Plan for today is to trial the patient on BiPAP to make sure his oxygen saturations remain stable during transport. Spoke with Mr. Goodman's Kinza today who was concerned about errors in the medical record affecting his future care. On admission notes it stated that the patient was non-compliant with his home medications and BiPAP. The patient's wanted to clarify that his has been fully compliant with his medications since 2012 however he does, on the rare occasion, drop his pills which she finds later. She states that he has also been fully compliant with his nasal oxygen and that he has not had a BiPAP at home for 5 years. The patient's clarified that the reason the patient does not have a BiPAP at home is because he used to get recurrent sinus infections when he used it which worsened his COPD, additionally she stated that he often would pull off the BiPAP in his sleep. OBJECTIVE: Vital Signs Period Temp Pulse Resp BP Sys/Govea Pulse Ox Last 24 Hr 98.0 F-99.3 F 66-77 14-26 81-121/37-73 93-97 GENERAL: The patient is awake, alert, and fully oriented, in no acute distress. HEAD: Normal with no signs of trauma. EYES: PERRL, extraocular movements intact, sclera anicteric, conjunctiva clear. NECK: Trachea midline, full range of motion, supple. LUNGS: Breath sounds equal, clear to auscultation bilaterally, decreased breath sounds at the bases bilaterally. HEART: Regular rate and rhythm, S1, S2 without murmur, rub or gallop. ABDOMEN: Soft, nontender, nondistended, normoactive bowel sounds, no guarding, no rebound, no masses. EXTREMITIES: 1+ pulses, warm, well-perfused, 1+ edema. NEUROLOGICAL: Cranial nerves II through XII grossly intact. 5/5 muscle strength bilaterally upper and lower extremities. PSYCH: Normal mood, normal affect. SKIN: Warm, dry, normal turgor, no rashes or lesions noted Laboratory Results - last 24 hr 12/24/18 12/24/18 05:10 05:10 WBC 8.8 RBC 3.26 L Hgb 10.8 L Hct 32.1 L MCV 98.5 H MCH 33.1 MCHC 33.6 RDW 15.0 Plt Count 177 MPV 8.7 Sodium 142 Potassium 3.7 Chloride 98 Carbon Dioxide 41 H Anion Gap 4 L BUN 31.0 H Creatinine 1.2 Est GFR (CKD-EPI)AfAm 69.60 Est GFR (CKD-EPI)NonAf 60.05 Random Glucose 100 Calcium 7.9 L Phosphorus 3.9 Magnesium 2.4 Active Medications Generic Name Dose Route Start Last Admin Trade Name Freq PRN Reason Stop Dose Admin Albuterol Sulfate 2 puff 12/15/18 20:10 12/23/18 09:48 Ventolin Hfa Inhaler - IH 2 puff Q4H PRN Administration SHORT OF BREATH/WHEEZING Apixaban 5 mg 12/19/18 22:00 12/24/18 10:39 Eliquis - PO 5 mg BID JONH Administration Atorvastatin Calcium 40 mg 12/15/18 22:00 12/23/18 21:42 Lipitor - PO 40 mg HS JONH Administration Budesonide/Formoterol Fumarate 2 puff 12/23/18 10:00 12/24/18 10:45 Symbicort 80/4.5mcg - IH 2 puff DAILY JONH Administration Ezetimibe 10 mg 12/16/18 10:00 12/24/18 10:39 Zetia - PO 10 mg DAILY JONH Administration Eplerenone 25 mg 12/15/18 22:00 12/24/18 10:40 Eplerenone PO 25 mg BID JONH Administration Ferrous Sulfate 325 mg 12/17/18 08:00 12/24/18 08:39 Feosol - PO 325 mg BIDWM JONH Administration Ampicillin Sodium/Sulbactam 100 mls @ 200 mls/hr 12/16/18 15:00 12/24/18 08: 39 Sodium 1.5 gm/ Sodium Chloride IVPB 200 mls/hr Q6H-IV JONH Administration Furosemide 100 mg/ Dextrose 100 mls @ 5 mls/hr 12/23/18 17:15 12/23/18 20:01 IVPB 5 mg/hr TITR JONH 5 mls/hr Administration Protocol 5 MG/HR Lamotrigine 25 mg 12/16/18 10:00 12/24/18 10:40 Lamictal - PO 25 mg DAILY JONH Administration Metoprolol Succinate 50 mg 12/15/18 22:00 12/24/18 10:44 Toprol Xl - PO 50 mg BID JONH Administration Patient's Own Med( 1 each 12/23/18 21:30 12/24/18 10:44 Incruse Ellipta 62.5 PO Not Given Mcg) DAILY JONH Ranolazine 1,000 mg 12/15/18 22:00 12/24/18 10:39 Ranexa - PO 1,000 mg BID JONH Administration Sertraline HCl 100 mg 12/24/18 10:00 12/24/18 10:36 Zoloft - PO 100 mg DAILY JONH Administration ASSESSMENT/PLAN: 73 year old male with a medical history of COPD (on home O2), pulmonary hypertension, sleep apnea, CHFpEF (60-65%), hypertension, hyperlipidemia, CAD s/ p right coronary artery stent presented for weakness and somnolence, admitted for treatment of hypoxic, hypercapnic respiratory failure 2/2 COPD/CHF exacerbation is transferred to ICU s/p cardiac arrest. Neurological/MSK -AO to self and location, aware of current medical situation. -continue zyprexa -Patient up and out of bed encouraged to continue with PT -Dr. Jackson consulted, recs appreciated Cardiovascular -Cardiac Arrest: regained ROSC after 10 minutes and 2 rounds of epinephrine. Most likely cause of arrest is hypoxia/hypercapnia due to non-compliance with non-invasive O2 delivery, however we will evaluate for alternative causes of arrest -chest X ray showing congestive changes/ atelectasis -EKG ordered - afib with no new ischemic changes from prior EKG -Echo showing no wall motion abnormality, EF 60-65%, LA severely dilated -troponinemia likely 2/2 cardiac arrest and hypoxia -> now down trending -continue to diurese with lasix 40mg IVpush BID -continue eliquis 5 bid -Per Dr. Garcia/Bharathi, consider cardioversion if compliance with Eliquis is assured and if AF persists -continue eplerenone 25 bid, Zetia 10 qd, Lipitor 40 qd, Toprol XL 50 bid, Ranexa 1000 bid -strict I&O -daily weights. -Per Dr. Garcia/ Bharathi cardiac MRI as outpatient to evaluate HOCM of elderly -Dr. Garcia/Bharathi following appreciate recommendations Pulmonary -BiPAP / - hx of pulmonary HTN, transfer to [facility] to the service of Dr. Palencia Gastrointestinal -no acute changes Renal -CANDY improving, CRE 1.2 today -avoid nephrotoxic agents -Lasix drip 5mls/hr Infectious Diseases -LLE cellulitis, continue unasyn day 9 -Wound care FEN -no standing fluids, actively diuresing -continue to monitor electrolytes and replete as necessary -Soft diet Prophylaxis -on eliquis Disposition -Off HFNC, patient can be transferred to telemetry if he continues to tolerate his BiPAP well and no loner requires HFNC. -Will contact Dr. Palencia to coordinate transfer to [facility] Visit type - Emergency Visit Emergency Visit: Yes ED Registration Date: 12/15/18 Care time: The patient presented to the Emergency Department on the above date and was hospitalized for further evaluation of their emergent condition. - New Patient This patient is new to me today: No - Critical Care Critical Care patient: Yes Total Critical Care Time (in minutes): 40 Critical Care Statement: The care of this patient involved high complexity decision making to prevent further life threatening deterioration of the patient 's condition and/or to evaluate & treat vital organ system(s) failure or risk of failure. ATTENDING PHYSICIAN STATEMENT I saw and evaluated the patient. I reviewed the resident's note and discussed the case with the resident. I agree with the resident's findings and plan as documented. SUBJECTIVE: OBJECTIVE: ASSESSMENT AND PLAN:
[2018-12-24] MEDS ORDERED: FUROSEMIDE 40 MG/4 ML INJECTABLE VIAL ONE (11:37)
--- NOTE | 2018-12-24 12:41 | PN ---
Teaching Attending Note Name of Resident: Ileana Hebert ATTENDING PHYSICIAN STATEMENT I saw and evaluated the patient. I reviewed the resident's note and discussed the case with the resident. I agree with the resident's findings and plan as documented. SUBJECTIVE: Patient seen and examined in the ICU. Remains on HFOT. Reports breathing is overall better. No CP. Intake & Output 12/21/18 12/22/18 12/23/18 12/24/18 23:59 23:59 23:59 23:59 Intake Total 716 201 4455 295 Output Total 1100 2025 400 Balance 535 -740 -750 -105 Weight 216 lb 7.903 oz 201 lb 0.985 oz 201 lb 8.04 oz 200 lb 9.93 oz Last Vital Signs Temp Pulse Resp BP Pulse Ox 99 F 67 20 101/56 L 97 12/24/18 10:00 12/24/18 11:00 12/24/18 11:00 12/24/18 11:00 12/24/18 10:00 Active Medications Albuterol Sulfate (Ventolin Hfa Inhaler -) 2 puff IH Q4H PRN PRN Reason: SHORT OF BREATH/WHEEZING Last Admin: 12/23/18 09:48 Dose: 2 puff Apixaban (Eliquis -) 5 mg PO BID [facility] Last Admin: 12/24/18 10:39 Dose: 5 mg Atorvastatin Calcium (Lipitor -) 40 mg PO HS [facility] Last Admin: 12/23/18 21:42 Dose: 40 mg Budesonide/Formoterol Fumarate (Symbicort 80/4.5mcg -) 2 puff IH DAILY [facility] Last Admin: 12/24/18 10:45 Dose: 2 puff Ezetimibe (Zetia -) 10 mg PO DAILY [facility] Last Admin: 12/24/18 10:39 Dose: 10 mg Eplerenone (Eplerenone) 25 mg PO BID [facility] Last Admin: 12/24/18 10:40 Dose: 25 mg Ferrous Sulfate (Feosol -) 325 mg PO BIDWM [facility] Last Admin: 12/24/18 08:39 Dose: 325 mg Ampicillin Sodium/Sulbactam (Sodium 1.5 gm/ Sodium Chloride) 100 mls @ 200 mls/ hr IVPB Q6H-IV JONH Last Admin: 12/24/18 08:39 Dose: 200 mls/hr Furosemide 100 mg/ Dextrose 100 mls @ 5 mls/hr IVPB TITR [facility]; Protocol Last Admin: 12/23/18 20:01 Dose: 5 mg/hr, 5 mls/hr Lamotrigine (Lamictal -) 25 mg PO DAILY [facility] Last Admin: 12/24/18 10:40 Dose: 25 mg Metoprolol Succinate (Toprol Xl -) 50 mg PO BID [facility] Last Admin: 12/24/18 10:44 Dose: 50 mg Patient's Own Med( Incruse Ellipta 62.5 Mcg) 1 each PO DAILY [facility] Last Admin: 12/24/18 10:44 Dose: Not Given Ranolazine (Ranexa -) 1,000 mg PO BID [facility] Last Admin: 12/24/18 10:39 Dose: 1,000 mg Sertraline HCl (Zoloft -) 100 mg PO DAILY [facility] Last Admin: 12/24/18 10:36 Dose: 100 mg Gen: NAD on HFOT Heart: RRR Lung: decreased breath sounds at the bases Abd: soft, nontender Ext: trace edema ASSESSMENT AND PLAN: s/p Cardiopulmonary Arrest Acute on Chronic Hypoxic and Hypercapneic Respiratory Failure Acute COPD Exacerbation Acute on Chronic Diastolic Heart Failure Pulmonary HTN CAD Paroxysmal Atrial Fibrillation HTN Cellulitis Laboratory Results - last 24 hr 12/24/18 12/24/18 05:10 05:10 WBC 8.8 RBC 3.26 L Hgb 10.8 L Hct 32.1 L MCV 98.5 H MCH 33.1 MCHC 33.6 RDW 15.0 Plt Count 177 MPV 8.7 Sodium 142 Potassium 3.7 Chloride 98 Carbon Dioxide 41 H Anion Gap 4 L BUN 31.0 H Creatinine 1.2 Est GFR (CKD-EPI)AfAm 69.60 Est GFR (CKD-EPI)NonAf 60.05 Random Glucose 100 Calcium 7.9 L Phosphorus 3.9 Magnesium 2.4 - Trial of NIPPV support - ABX - continue lasix - monitor urine output, creatinine - rate control - continue anticoagulation - PO as tolerated - For transfer to [facility] for further cardiac / pulmonary Dr Gaming Critical care time spent in reviewing chart, evaluating patient and formulating plan 35 min
--- NOTE | 2018-12-24 15:05 | PN ---
Progress Note, [employer] - Note Progress Note: CXR noted. Pending transfer to [facility] once stable on BIPAP. Reportedly tolerated lunch. Monitor PO tolerance.
--- NOTE | 2018-12-24 16:21 | PN ---
Teaching Attending Note Name of Resident: Sheron Richey ATTENDING PHYSICIAN STATEMENT I saw and evaluated the patient. I reviewed the resident's note and discussed the case with the resident. I agree with the resident's findings and plan as documented. SUBJECTIVE: Day 5 s/p PEA arrest, extubated, feeling okay, still on high flow via nasal prongs. OBJECTIVE: Afebrile, hemodynamically Stable. AAO x 3. S/P Extubation - on high flow oxygen therapy via NC FiO2 50% Last Vital Signs Temp Pulse Resp BP Pulse Ox 97.6 F 63 20 136/96 97 12/24/18 13:00 12/24/18 14:00 12/24/18 14:00 12/24/18 14:00 12/24/18 13:00 Heart - S1, S2, SM Lungs - basal crackles, L SC line. Abdomen - Soft, non-tender. Extremities - LLE cellulitis much improved, no further erythema/tenderness. Neuro - AAO x 3. Tone/Power normal all 4 extremities. Laboratory Results - last 24 hr 12/24/18 12/24/18 05:10 05:10 WBC 8.8 RBC 3.26 L Hgb 10.8 L Hct 32.1 L MCV 98.5 H MCH 33.1 MCHC 33.6 RDW 15.0 Plt Count 177 MPV 8.7 Sodium 142 Potassium 3.7 Chloride 98 Carbon Dioxide 41 H Anion Gap 4 L BUN 31.0 H Creatinine 1.2 Est GFR (CKD-EPI)AfAm 69.60 Est GFR (CKD-EPI)NonAf 60.05 Random Glucose 100 Calcium 7.9 L Phosphorus 3.9 Magnesium 2.4 Current Medications Generic Name Dose Route Start Last Admin Trade Name Freq PRN Reason Stop Dose Admin Albuterol Sulfate 2 puff 12/15/18 20:10 12/23/18 09:48 Ventolin Hfa Inhaler - IH 2 puff Q4H PRN Administration SHORT OF BREATH/WHEEZING Apixaban 5 mg 12/19/18 22:00 12/24/18 10:39 Eliquis - PO 5 mg BID JONH Administration Atorvastatin Calcium 40 mg 12/15/18 22:00 12/23/18 21:42 Lipitor - PO 40 mg HS JONH Administration Budesonide/Formoterol Fumarate 2 puff 12/23/18 10:00 12/24/18 10:45 Symbicort 80/4.5mcg - IH 2 puff DAILY JONH Administration Ezetimibe 10 mg 12/16/18 10:00 12/24/18 10:39 Zetia - PO 10 mg DAILY JONH Administration Eplerenone 25 mg 12/15/18 22:00 12/24/18 10:40 Eplerenone PO 25 mg BID JONH Administration Ferrous Sulfate 325 mg 12/17/18 08:00 12/24/18 08:39 Feosol - PO 325 mg BIDWM JONH Administration Ampicillin Sodium/Sulbactam 100 mls @ 200 mls/hr 12/16/18 15:00 12/24/18 15: 13 Sodium 1.5 gm/ Sodium Chloride IVPB 200 mls/hr Q6H-IV JONH Administration Furosemide 100 mg/ Dextrose 100 mls @ 5 mls/hr 12/23/18 17:15 12/23/18 20:01 IVPB 5 mg/hr TITR JONH 5 mls/hr Administration Protocol 5 MG/HR Lamotrigine 25 mg 12/16/18 10:00 12/24/18 10:40 Lamictal - PO 25 mg DAILY JONH Administration Metoprolol Succinate 50 mg 12/15/18 22:00 12/24/18 10:44 Toprol Xl - PO 50 mg BID JONH Administration Patient's Own Med( 1 each 12/23/18 21:30 12/24/18 10:44 Incruse Ellipta 62.5 PO Not Given Mcg) DAILY [facility] Ranolazine 1,000 mg 12/15/18 22:00 12/24/18 10:39 Ranexa - PO 1,000 mg BID JONH Administration Sertraline HCl 100 mg 12/24/18 10:00 12/24/18 10:36 Zoloft - PO 100 mg DAILY JONH Administration Home Medications Medication Instructions Recorded Aspirin [ASA] 81 mg PO DAILY 01/09/12 Sertraline HCl [Zoloft] 200 mg PO DAILY 01/09/12 Albuterol Sulfate Inhaler - 1 - 2 puff IH PRN PRN MDD Q4-6 12/15/18 [Ventolin HFA Inhaler -] hours Atorvastatin Ca [Lipitor] 40 mg PO HS 12/15/18 Bumetanide 2 mg PO BID 12/15/18 Cholecalciferol (Vitamin D3) 1,000 mg PO DAILY 12/15/18 [Vitamin D3] Eplerenone 25 mg PO BID 12/15/18 Ezetimibe 10 mg PO DAILY 12/15/18 Lamotrigine [Lamictal] 25 mg PO DAILY 12/15/18 Metoprolol Succinate [Toprol Xl] 50 mg PO BID 12/15/18 Ranolazine [Ranexa] 1,000 mg PO BID 12/15/18 Umeclidinium [place] [Incruse 1 puff IH DAILY 12/15/18 Ellipta] Fluticasone/Vilanterol [Breo 1 puff IN DAILY 12/16/18 Ellipta 200-25 Mcg INH] Gabapentin 100 mg PO DAILY 12/16/18 ASSESSMENT AND PLAN: 73 year old male with history of RADHIKA on CPAP, HTN, CRF sec to COPD on 3L Home O2 , Pulmonary HTN, CHF, CAD s/p stent, admitted with LLE Cellulitis and AMS, sustained PEA arrest with hypoxic and hypercapneic respiratory failure. 1. Acute on Chronic Hypoxic Hypercapnic respiratory failure s/p PEA Cardiac arrest secondary to Hypoxia and Hypercapnia - resolved, s/p intubation/ extubation 12/21/18. Now AAO x 3, breathing spontaneously on 50% via NC. For continued attempts at weaning to NC 4-6L. 2. Acute on Chronic Diastolic CHF - CXR - congestive changes with pleural fluid/ atelectasis at bases. Transitioned to lasix drip. Monitor electrolytes. I/Os. Daily Weights. 3. LLE cellulitis - failed outpatient therapy. Improving on Unasyn (Day 9). To complete 10 day course. 4. CANDY - improved. Creatinine trending back up - will monitor zain given Lasix drip. 5. Parox Atrial fibrillation/flutter - new - started on Eliquis. Continue Metoprolol. Cardiology following. 6. Iron def anemia - no signs of bleeding. Iron supplementation. Work-up as out- patient. 7. CRF sec to COPD/Pulmonary HTN - On Home O2 (4-6L via NC), RADHIKA on CPAP - not compliant with BiPAP at home 8. CAD s/p PCI/Stent - demand ischemia and s/p arrest with mild TropI rise. Continue BB, Statin, Ranexa. Further recommendations as per Cardiology. 9. HTN - Continue Eplerenone, Toprol XL. For out-patient Cardiac MRI for HOCM of Elderly as per Cardio. 10. Depression/Anxiety - Zyprexa re-transitioned back to Zoloft. Denies suicidal ideation. 11. Pulmonary HTN - follows with specialist at [facility], currently awaiting transfer to [facility] as per patient request. DVT Px - on Eliquis
--- NOTE | 2018-12-24 16:30 | PN ---
Physical Exam: SUBJECTIVE: Patient seen and examined at bedside. pt has no acute complaints. Pt states he would like to be transferred to another facility. OBJECTIVE: Vital Signs Period Temp Pulse Resp BP Sys/Govea Pulse Ox Last 24 Hr 97.6 F-99.3 F 63-73 14-24 81-136/37-96 93-97 GENERAL: The patient is awake, alert, and fully oriented, in no acute distress. LUNGS: Breath sounds equal, clear to auscultation bilaterally, no wheezes, no crackles, no accessory muscle use. HEART: irregular rate and rhythm, S1, S2 without murmur, rub or gallop. ABDOMEN: Soft, nontender, nondistended, normoactive bowel sounds, no guarding EXTREMITIES: 2+ pulses, warm, well-perfused, no edema. SKIN: Warm, dry, normal turgor, no rashes or lesions noted Laboratory Results - last 24 hr 12/24/18 12/24/18 05:10 05:10 WBC 8.8 RBC 3.26 L Hgb 10.8 L Hct 32.1 L MCV 98.5 H MCH 33.1 MCHC 33.6 RDW 15.0 Plt Count 177 MPV 8.7 Sodium 142 Potassium 3.7 Chloride 98 Carbon Dioxide 41 H Anion Gap 4 L BUN 31.0 H Creatinine 1.2 Est GFR (CKD-EPI)AfAm 69.60 Est GFR (CKD-EPI)NonAf 60.05 Random Glucose 100 Calcium 7.9 L Phosphorus 3.9 Magnesium 2.4 Current Medications Albuterol Sulfate (Ventolin Hfa Inhaler -) 2 puff IH Q4H PRN PRN Reason: SHORT OF BREATH/WHEEZING Last Admin: 12/23/18 09:48 Dose: 2 puff Apixaban (Eliquis -) 5 mg PO BID [facility] Last Admin: 12/24/18 10:39 Dose: 5 mg Atorvastatin Calcium (Lipitor -) 40 mg PO HS [facility] Last Admin: 12/23/18 21:42 Dose: 40 mg Budesonide/Formoterol Fumarate (Symbicort 80/4.5mcg -) 2 puff IH DAILY [facility] Last Admin: 12/24/18 10:45 Dose: 2 puff Ezetimibe (Zetia -) 10 mg PO DAILY [facility] Last Admin: 12/24/18 10:39 Dose: 10 mg Eplerenone (Eplerenone) 25 mg PO BID [facility] Last Admin: 12/24/18 10:40 Dose: 25 mg Ferrous Sulfate (Feosol -) 325 mg PO BIDWM [facility] Last Admin: 12/24/18 08:39 Dose: 325 mg Ampicillin Sodium/Sulbactam (Sodium 1.5 gm/ Sodium Chloride) 100 mls @ 200 mls/ hr IVPB Q6H-IV [facility] Last Admin: 12/24/18 15:13 Dose: 200 mls/hr Furosemide 100 mg/ Dextrose 100 mls @ 5 mls/hr IVPB TITR [facility]; Protocol Last Admin: 12/23/18 20:01 Dose: 5 mg/hr, 5 mls/hr Lamotrigine (Lamictal -) 25 mg PO DAILY [facility] Last Admin: 12/24/18 10:40 Dose: 25 mg Metoprolol Succinate (Toprol Xl -) 50 mg PO BID [facility] Last Admin: 12/24/18 10:44 Dose: 50 mg Patient's Own Med( Incruse Ellipta 62.5 Mcg) 1 each PO DAILY [facility] Last Admin: 12/24/18 10:44 Dose: Not Given Ranolazine (Ranexa -) 1,000 mg PO BID [facility] Last Admin: 12/24/18 10:39 Dose: 1,000 mg Sertraline HCl (Zoloft -) 100 mg PO DAILY [facility] Last Admin: 12/24/18 10:36 Dose: 100 mg ASSESSMENT/PLAN: 73 yo M PMH COPD on 4L home O2, pulmonary HTN, RADHIKA, diastolic heart failure, HTN , HLD, CAD s/p RCA DAVID (2003,2004,2018) p/w altered mental status and cellulitis in LLE. Pt was being treated by PMD for cellulitis. During the hospital course, pt had claimed suicidal ideation. In ED, pt had ABG showing chronic CO2 retention. during the hospital course, pt had a cardiac arrest for around 10 min x 2 Epi. ROSC was achieved. pt is s/p intubation and extubation. Pt is now awake and oriented. pt is on HFOT. s/p cardiac arrest -possibly 2/2 acute on chronic diastolic CHF vs COPD -Trop peak to 0.19-->0.09 -Pt had episodes of A.Fib & a. flutter on the tele monitor. Acute Hypoxic Hypercapmic Respiratory Failure - pt with known severe pulm htn -ABG showing CO2 retention, CO2 improving -pt currently HFOT saturating well , wean off back to home O2 ( 4-5 L NC) as tolerated -pt keeps desaturating when HFOT is reduced. Acute on chronic heart failure with preserved EF -fluid overloaded -c/w lasix BID -ECHO : preserved EF, severely dilated LA, severe mitral annular calcification, moderate -monitor I/Os -Daily Weights Paroxysmal AFib/ Aflutter -new -on eliquis as per cardio recs -cardio following the case -pt is now rate controlled L LE Cellulitis -XRay negative -pt completed augmentin x5d prior to admission. -c/w unasyn (day 6) -erythema improving -Doppler neg for DVT -Doppler indicated B/L arterial pulse Iron def Anemia -no signs of bleeding -iron supplements RADHIKA -recommending CPAP, pt was not compliant at home Acute Metabolic encephalopathy -pt currently awake, alert and oriented -possibly 2/2 hypercapnea -recommended use of CPAP at night -pt denied any thoughts to hurt himself or others. -psych is consulted -pt has a hx of mood disorder ( on zoloft from PMD) -zyprexa was discontinued and zoloft restarted as per psych F/E/N: -pt advanced to soft diet DVT ppx: Eliquis DISPO: continued ICU monitoring , possible transfer to [facility] Visit type - Emergency Visit Emergency Visit: No - New Patient This patient is new to me today: No - Critical Care Critical Care patient: Yes Total Critical Care Time (in minutes): 36 Critical Care Statement: The care of this patient involved high complexity decision making to prevent further life threatening deterioration of the patient 's condition and/or to evaluate & treat vital organ system(s) failure or risk of failure. - Discharge Referral Referred to [facility] Med [facility] No ATTENDING PHYSICIAN STATEMENT I saw and evaluated the patient. I reviewed the resident's note and discussed the case with the resident. I agree with the resident's findings and plan as documented. SUBJECTIVE: OBJECTIVE: ASSESSMENT AND PLAN:
--- NOTE | 2018-12-24 16:40 | PN ---
Progress Note (short form) - Note Progress Note: 16:30 PM, nurse found patient down on the ground on his knees with small amount of blood coming from an IV site that was pulled out. Patient stated that he was reaching down to plug in his electronics into the socket when he tripped and fell down. Denies any prodromal events, dizziness, lightheadedness, palpitations , chest pain, shortness of breath, nausea, vomiting. Stated did not lose consciousness. He denies any head hit. Currently denies any pain. No events noted on the monitor. Currently normotensive, regular rate, sinus rhythm, saturating well. Patent placed back into bed from floor and remains comfortable. Head CT, EKG ordered. On continuous cardiac monitoring. EKG unchanged from previous EKG, now in sinus rhythm. Patient is refusing head CT, risks and benefits explained especially in context of patient transfer to [facility]. Patient understanding of risks of not receiving head CT including head bleed which may lead to further decompensation. Patient continued to refuse and acknowledged risks. Physical Exam: General: alert, awake and oriented x3 Neuro: CN II-XII intact, muscle strength 5/5 equal bilaterally upper and lower extremities. Heel to conteh intact, finger to nose intact. No focal neurological deficits. Cardiac: regular rate and rhythm, S1, S2, no murmurs or rubs appreciated Respiratory: Decreased breath sounds at bases, no wheezes appreciated. Skin: bleeding noted on IV site that was pulled from arm
[2018-12-24] MEDS: FUROSEMIDE INJECTION 100 MG in DEXTROSE 5%-WATER - 90 ML IVPB SCH (17:48)
[2018-12-24 20:21] VITALS: BP 108/54; PULSE 71
[2018-12-24 21:57] VITALS: TEMP 98.3
--- NOTE | 2018-12-25 08:52 | DS ---
Physical Exam: SUBJECTIVE: Patient discharged yesterday. pt states he has some superficial sternal pain. pt states he is improving. OBJECTIVE: Vital Signs Period Temp Pulse Resp BP Sys/Govea Pulse Ox Last 24 Hr 97.6 F-99 F 63-71 15-24 81-136/36-96 94-97 PHYSICAL EXAM 12/24/18 GENERAL: The patient is awake, alert, and fully oriented, in no acute distress. LUNGS: Breath sounds equal, clear to auscultation bilaterally, no wheezes, no crackles, no accessory muscle use. pt on HFOT HEART: irregular rate and rhythm, S1, S2 without murmur, rub or gallop. ABDOMEN: Soft, nontender, nondistended, normoactive bowel sounds, no guarding, no rebound EXTREMITIES: 2+ pulses, warm, well-perfused, no edema. SKIN: Warm, dry, normal turgor, no rashes or lesions noted. LABS Laboratory Results - last 24 hr 12/24/18 05:10 WBC 8.8 RBC 3.26 L Hgb 10.8 L Hct 32.1 L MCV 98.5 H MCH 33.1 MCHC 33.6 RDW 15.0 Plt Count 177 MPV 8.7 HOSPITAL COURSE: Date of Admission:12/15/18 73 yo M PMH COPD on 4L home O2, pulmonary HTN, RADHIKA, diastolic heart failure, HTN , HLD, CAD s/p RCA DAVID (2003,2004,2018) p/w altered mental status and cellulitis in LLE. Pt was being treated by PMD for cellulitis. In ED, pt had ABG showing chronic CO2 retention. during the hospital course, pt had episodes of new paroxysmal Afib. Pt had episode of Afib/ Aflutter and then noted to have a cardiac arrest for around 10 min x 2 Epi on 12/18. ROSC was achieved. pt is s/p intubation and extubation. Pt is now awake and oriented. pt is on HFOT. The likely cause of cardiac arrest is likely hypoxic and hypercapnic respiratory failure. Throughout the hospital course, pt would not use BIPAP, PCO2 on ABG was elevated, but trended down once pt was on HFOT. Echo was performed showing preserved EF, severely dilated LA, severe mitral annular calcification, moderate . The pt was recieving Lasix for fluid overload 2/2 HFpEF. Cardiology evaluated the pt and added Eliquis for new Afib. pt was continued on HF regimen. Pt O2 saturation kept decreasing when attempted to wean down from HFOT. For the cellulitis the pt is continued on unasyn, cellulitis improved and was less erythematous. Pt was seen by psych while inpatient. Pt was discontinued from zoloft bc of suicidal ideations and switched to zyprexa. Pt transferred to [facility]. Date of Discharge: 12/25/18 Minutes to complete discharge: 37 Discharge Summary Reason For Visit: ACUTE ON CHRONIC CONGESTIVE HEART FAILURE Condition: Stable - Instructions Diet, Activity, Other Instructions: 73M admitted and treated for pulmonary HTN. Per family, pt requesting to be transferred to [facility] for higher level of care. Transfer initiated by pt's family and accepted by physician at facility. Please continue all meds as directed per tertiary facility. Disposition: TRANSFER ACUTE CARE/OTHER HOSP - Home Medications Comprehensive Discharge Medication List: Ambulatory Orders Aspirin [ASA] 81 mg PO DAILY 01/09/12 Sertraline HCl [Zoloft] 200 mg PO DAILY 01/09/12 Albuterol Sulfate Inhaler - [Ventolin HFA Inhaler -] 1 - 2 puff IH PRN PRN MDD Q4-6 hours 12/15/18 Atorvastatin Ca [Lipitor] 40 mg PO HS 12/15/18 Bumetanide 2 mg PO BID 12/15/18 Cholecalciferol (Vitamin D3) [Vitamin D3] 1,000 mg PO DAILY 12/15/18 Eplerenone 25 mg PO BID 12/15/18 Ezetimibe 10 mg PO DAILY 12/15/18 Lamotrigine [Lamictal] 25 mg PO DAILY 12/15/18 Metoprolol Succinate [Toprol Xl] 50 mg PO BID 12/15/18 Ranolazine [Ranexa] 1,000 mg PO BID 12/15/18 Umeclidinium [place] [Incruse Ellipta] 1 puff IH DAILY 12/15/18 Fluticasone/Vilanterol [Breo Ellipta 200-25 Mcg INH] 1 puff IN DAILY 12/16/18 Gabapentin 100 mg PO DAILY 12/16/18 This patient is new to me today: No Emergency Visit: No Critical Care patient: No - Discharge Referral Referred to [facility] No ATTENDING PHYSICIAN STATEMENT I saw and evaluated the patient. I reviewed the resident's note and discussed the case with the resident. I agree with the resident's findings and plan as documented. SUBJECTIVE: OBJECTIVE: ASSESSMENT AND PLAN:
--- NOTE | 2018-12-26 09:11 | EKG ---
Test Reason : Blood Pressure : / mmHG Vent. Rate : 066 BPM Atrial Rate : 066 BPM P-R Int : 176 ms QRS Dur : 132 ms QT Int : 492 ms P-R-T Axes : 043 -61 102 degrees QTc Int : 515 ms NORMAL SINUS RHYTHM POSSIBLE LEFT ATRIAL ENLARGEMENT RIGHT BUNDLE BRANCH BLOCK LEFT ANTERIOR FASCICULAR BLOCK BIFASCICULAR BLOCK LEFT VENTRICULAR HYPERTROPHY WITH REPOLARIZATION ABNORMALITY LATERAL INFARCT , AGE UNDETERMINED ABNORMAL ECG WHEN COMPARED WITH ECG OF 20-DEC-2018 09:45, SINUS RHYTHM HAS REPLACED ATRIAL FIBRILLATION Confirmed by MC WESTON MD ([id number]) on 12/26/2018 9:11:02 AM Referred By: Confirmed By:MC WESTON MD
== END 2018-12-24 22:19 | disposition short-term general hospital (02) | DRG 208 ==
LOC: JER 16:00 → JERBED 18:40 → J4W 21:02 → JICU 12-19 18:45
PROVIDERS: ADMIT Internal Medicine
PROC: 05H633Z Insertion of Infusion Device into Left Subclavian Vein, Percutaneous Approach (ICD-10-PCS; principal; 2018-12-19)
PROC: 5A1935Z Respiratory Ventilation, Less than 24 Consecutive Hours (ICD-10-PCS; 2018-12-19)
PROC: B517ZZA Fluoroscopy of Left Subclavian Vein, Guidance (ICD-10-PCS; 2018-12-19)
PROC: 0BH17EZ Insertion of Endotracheal Airway into Trachea, Via Natural or Artificial Opening (ICD-10-PCS; 2018-12-19)
DX: J96.02 Acute respiratory failure with hypercapnia (principal); G93.41 Metabolic encephalopathy; I50.33 Acute on chronic diastolic (congestive) heart failure; I46.9 Cardiac arrest, cause unspecified; L03.116 Cellulitis of left lower limb; R45.851 Suicidal ideations; I48.92 Unspecified atrial flutter; J44.1 Chronic obstructive pulmonary disease with (acute) exacerbation; E87.2 Acidosis; I13.0 Hypertensive heart and chronic kidney disease with heart failure and stage 1 through stage 4 chronic kidney disease, or unspecified chronic kidney disease; I43 Cardiomyopathy in diseases classified elsewhere; N17.9 Acute kidney failure, unspecified; J98.11 Atelectasis; I48.0 Paroxysmal atrial fibrillation; J44.9 Chronic obstructive pulmonary disease, unspecified; I27.20 Pulmonary hypertension, unspecified; I25.10 Atherosclerotic heart disease of native coronary artery without angina pectoris; E78.5 Hyperlipidemia, unspecified; F32.9 Major depressive disorder, single episode, unspecified; D50.9 Iron deficiency anemia, unspecified; G47.33 Obstructive sleep apnea (adult) (pediatric); D75.89 Other specified diseases of blood and blood-forming organs; F39 Unspecified mood [affective] disorder; N18.3 Chronic kidney disease, stage 3 (moderate); W18.39XA Other fall on same level, initial encounter; Y92.238 Other place in hospital as the place of occurrence of the external cause; Z87.891 Personal history of nicotine dependence; Z91.14 Patient's other noncompliance with medication regimen; Z99.81 Dependence on supplemental oxygen; Z95.5 Presence of coronary angioplasty implant and graft; Z72.89 Other problems related to lifestyle
CPT/HCPCS: 31500; 36415; 36600; 70450-TC; 71045-TC-FY; 73502-TC-RT-FY; 73630-TC-LT; 80048; 80053; 80061; 81003; 82375; 82550; 82607; 82746; 82803; 83036; 83050; 83540; 83550; 83605; 83721; 83735; 83880; 84100; 84439; 84443; 84466; 84480; 84484; 85025; 85027; 85044; 85610; 85651; 86140; 87040; 87086; 90715; 93005; 93010; 93306-TC; 93925-TC; 93970-TC; 94002; 94640; 94660; 97116-GP; 97161-GP; 99283-25; J7030

== ENCOUNTER 2019-05-29 11:04 | Emergency (ER) | payer OTHER ==
[2019-05-29 11:13] VITALS: BMI 25.4
[2019-05-29 12:45] VITALS: PULSE 66
[2019-05-29 13:02] LABS: BASO % 0.8 % (0-2.0); EOS % 3.6 % (0-4.5); HEMATOCRIT 35.5 % (35.4-49); HEMOGLOBIN 11.5 GM/dL (11.7-16.9); LYMPH % 8.1 % (8-40); MCHC 32.3 g/dl (32.0-35.9); MEAN CELL VOLUME 95.9 fl (80-96); MEAN PLT VOLUME 8.3 fl (7.5-11.1); MONO % 8.5 % (3.8-10.2); PLATELET COUNT 238 K/MM3 (134-434); RDW 14.5 % (11.9-15.9); WHITE BLOOD COUNT 7.4 K/mm3 (4.0-10.0)
[2019-05-29 13:08] LABS: PH,URINE 7.5 (5.0-8.0); URINE APPEARANCE CLEAR; URINE BILIRUBIN NEGATIVE (NEGATIVE); URINE COLOR YELLOW; URINE GLUCOSE (UA) NEGATIVE (NEGATIVE); URINE KETONE NEGATIVE (NEGATIVE); URINE LEUK ESTERASE NEGATIVE (NEGATIVE); URINE NITRITE NEGATIVE (NEGATIVE); URINE PROTEIN NEGATIVE (NEGATIVE); URINE UROBILINOGEN 0.2 mg/dL (0.2-1.0)
[2019-05-29 13:16] LABS: INR 1.59 (0.83-1.09); PROTHROMBIN TIME (PATIENT) 18.8 SEC (9.7-13.0)
--- NOTE | 2019-05-29 13:17 | PDOC ---
History of Present Illness - General Chief Complaint: Pain Stated Complaint: SENT BY PCP Time Seen by Provider: 05/29/19 11:17 History Source: Patient Exam Limitations: No Limitations - History of Present Illness Initial Comments: 05/29/19 13:07 73M with a PMH of COPD on 4L home O2, pulmonary HTN, RADHIKA, diastolic heart failure, HTN, HLD, CAD s/p RCA DAVID (2003,2004,2018) who presents to the ER from for evaluation of pain. The patient states that he's had 1-2 weeks of worsening, atraumatic, RUQ and R lower back pain which radiates to his groin. Denies testicular pain or discharge but admits to "some" dysuria. Denies fever, chills, nausea, vomiting, diarrhea, hematuria, hematochezia, h/o nephrolithiasis. Pt states he was sent by his PCP to "get labs". Past History - Past Medical History Allergies/Adverse Reactions: Allergies Allergy/AdvReac Type Severity Reaction Status Date / Time No Known Allergies Allergy Verified 05/29/19 11:12 Home Medications: Ambulatory Orders Sertraline HCl [Zoloft] 100 mg PO DAILY 01/09/12 Albuterol Sulfate Inhaler - [Ventolin HFA Inhaler -] 1 - 2 puff IH PRN PRN MDD Q4-6 hours 12/15/18 Atorvastatin Ca [Lipitor] 40 mg PO HS 12/15/18 Eplerenone 25 mg PO DAILY 12/15/18 Ezetimibe 10 mg PO DAILY 12/15/18 Lamotrigine [Lamictal] 25 mg PO DAILY 12/15/18 Metoprolol Succinate [Toprol Xl] 12.5 mg PO BID 12/15/18 Ranolazine [Ranexa] 1,000 mg PO BID 12/15/18 Fluticasone/Vilanterol [Breo Ellipta 200-25 Mcg INH] 1 puff IN DAILY 12/16/18 Amiodarone HCl 200 mg PO DAILY 05/29/19 Apixaban [Eliquis] 5 mg PO BID 05/29/19 Bumetanide [Bumex -] 1 mg PO BID 05/29/19 Asthma: Yes Cardiac Disorders: Yes (stent, pulmonary HTN, s/p RCA stent) COPD: Yes (home o2) CHF: Yes HTN: Yes Hypercholesterolemia: Yes Psychiatric Problems: Yes (DEPRESSION) - Surgical History Cardiac Surgery: Yes (stent) - Psycho Social/Smoking Cessation Hx Smoking Status: No Smoking History: Former smoker Have you smoked in the past 12 months: No Number of Cigarettes Smoked Daily: 10 Information on smoking cessation initiated: No Hx Alcohol Use: No Drug/Substance Use Hx: No Substance Use Type: None Hx Substance Use Treatment: No Review of Systems - Review of Systems Able to Perform ROS?: Yes Comments:: 05/29/19 13:40 GENERAL/CONSTITUTIONAL: No fever or chills. No weakness. HEAD, EYES, EARS, NOSE AND THROAT: No change in vision. No ear pain or discharge. No sore throat. CARDIOVASCULAR: No chest pain, palpitations, or lightheadedness. RESPIRATORY: No cough, wheezing, shortness of breath, or hemoptysis. GASTROINTESTINAL: + for abdominal pain. No nausea, vomiting, diarrhea, or constipation. GENITOURINARY: + for groin pain. No dysuria, frequency, hematuria, or change in urination. MUSCULOSKELETAL: + for low back pain. No joint or muscle swelling or pain. No neck pain. SKIN: No rash or lesions. NEUROLOGIC: No headache, numbness, tingling, focal weakness, loss of consciousness, or change in strength/sensation. Is the patient limited Gabonese proficient: No *Physical Exam - Vital Signs Last Vital Signs Temp Pulse Resp BP Pulse Ox 97.6 F 66 18 114/46 L 100 05/29/19 12:45 05/29/19 12:45 05/29/19 12:45 05/29/19 11:08 05/29/19 12:45 - Physical Exam 05/29/19 13:41 GENERAL: Well developed, well nourished. Awake and alert. No acute distress. HEENT: Normocephalic, atraumatic. Abrasion on forehead. Hearing grossly normal. Moist mucous membranes. PERRLA, EOMI. No conjunctival pallor. Sclera are non- icteric. NECK: Supple. Full ROM. No JVD. CARDIOVASCULAR: Regular rate and rhythm. No murmurs, rubs, or gallops. Distal pulses are 2+ and symmetric. PULMONARY: No evidence of respiratory distress. Lungs clear to auscultation bilaterally. No wheezing, rales or rhonchi. ABDOMINAL: Soft. TTP on R side. + Tobar's. Non-distended. No rebound or guarding. GENITOURINARY: No CVA tenderness bilaterally. No testicular tenderness. No inguinal hernia noted. MUSCULOSKELETAL: Abrasion on L elbow. Normal range of motion at all joints. No bony deformities or tenderness. EXTREMITIES: No cyanosis. No clubbing. No edema. No calf tenderness or swelling. SKIN: Warm and dry. Normal capillary refill. No rashes. No jaundice. NEUROLOGICAL: Alert, awake, appropriate. Cranial nerves 2-12 grossly intact. Normal speech. Gait is normal without ataxia. PSYCHIATRIC: Cooperative. Good eye contact. Appropriate mood and affect. ED Treatment Course - LABORATORY CBC & Chemistry Diagram: 05/29/19 12:30 05/29/19 12:30 - RADIOLOGY Radiology Studies Ordered: Category Date Time Status CHEST X-RAY PORTABLE* [RAD] Stat Radiology 05/29/19 11:34 Completed Medical Decision Making - Medical Decision Making 05/29/19 13:42 73M with MMP who presents for evaluation of 2 weeks of abdominal pain radiating to his back and groin. Pt states he had an US 2 days ago that showed a gallstone. POCUS reveals possible AGBW thickening. Will obtain formal US and CTAP to evaluate for abd pain. 05/29/19 13:44 No WBC. Hgb WNL. Cr 1.0. UA negative. Pt not complaining of pain at the present time but states that the pain is exacerbated when he sits up. 05/29/19 14:34 Right upper abdomen ultrasound. The liver measures 12 cm in sagittal length with a slightly coarse and dense echotexture. Gallbladder is adequately distended without intraluminal stones or thickening of its wall. No intra or extrahepatic bile duct dilatation is seen. The right kidney measures 10 cm sagittal length and appears unremarkable. Visualized portion of the pancreatic head and body appear unremarkable. Visualized portion of the proximal abdominal aorta and inferior vena cava appear unremarkable. Normal flow in the main portal vein. IMPRESSION: Mild fatty infiltration of the liver versus hepatocellular disease. No gallstones are identified. Discharge - Follow up/Referral Referrals: Charis Robles [Primary Care Provider] - - Patient Discharge Instructions - Post Discharge Activity
[2019-05-29 13:27] LABS: ALBUMIN 3.5 g/dl (3.4-5.0); BILIRUBIN,TOTAL 0.6 mg/dL (0.2-1); BLOOD UREA NITROGEN 26.6 mg/dL (7-18); CALCIUM 9.2 mg/dL (8.5-10.1); POTASSIUM 4.6 mmol/L (3.5-5.1); TOT PROT 7.8 g/dl (6.4-8.2)
[2019-05-29 16:03] VITALS: BP 106/52; TEMP 97.8
--- NOTE | 2019-05-29 16:57 | EKG ---
Test Reason : Blood Pressure : / mmHG Vent. Rate : 064 BPM Atrial Rate : 064 BPM P-R Int : 180 ms QRS Dur : 138 ms QT Int : 502 ms P-R-T Axes : 046 -62 084 degrees QTc Int : 517 ms NORMAL SINUS RHYTHM POSSIBLE LEFT ATRIAL ENLARGEMENT RIGHT BUNDLE BRANCH BLOCK LEFT ANTERIOR FASCICULAR BLOCK BIFASCICULAR BLOCK LEFT VENTRICULAR HYPERTROPHY CANNOT RULE OUT SEPTAL INFARCT , AGE UNDETERMINED LATERAL INFARCT (CITED ON OR BEFORE 24-DEC-2018) ABNORMAL ECG WHEN COMPARED WITH ECG OF 24-DEC-2018 16:49, NO SIGNIFICANT CHANGE WAS FOUND Confirmed by BRIAN DONG, NETTIE ([id number]) on 05/29/2019 4:56:51 PM Referred By: Confirmed By:NETTIE TORRES MD
--- NOTE | 2019-05-29 17:05 | PDOC ---
Documentation entered by Mariama Zazueta SCRIBE, acting as scribe for Shelia Nicholas MD. Shelia Nicholas MD: This documentation has been prepared by the Marbin petty Joy, SCRIBE, under my direction and personally reviewed by me in its entirety. I confirm that the documentation accurately reflects all work, treatment, procedures, and medical decision making performed by me. Attending Attestation - Resident Resident Name: TimValdemar - ED Attending Attestation I have performed the following: I have examined & evaluated the patient, The case was reviewed & discussed with the resident, I agree w/resident's findings & plan, Exceptions are as noted - HPI HPI: 05/29/19 15:44 The patient is a 73 year old male with significant past medical history of COPD on 4L home O2, pulmonary HTN, RADHIKA, diastolic heart failure, HTN, HLD, CAD s/p RCA DAVID (2003,2004,2018) who presents to the ED with RUQ, R lower back pain, radiating around to RLQ for 2 weeks. As per patient, he describes his pain as sharp and sore, is associated with dysuria, and states it is very positional, worse with moving or sitting up straight. Pt saw his PMD for the sxs on Thursday, had an US that may have shown a gallstone but he does not recall. He also adds he was advised by his PMD to get labs for which he presented to urgent care today and was advised to come to the ED for further evaluation. Denies associated fevers, chills, dizziness, headache, focal weakness/numbness, N/V, CP /SOB, LE edema, testicular or penile pain. Denies change in food intake and is currently hungry. He does report some constipation for the last 2 weeks, reports last BM was 2 days ago. He has been drinking prune juice for this. The patient denies urinary frequency, urgency and hematuria. Denies dark or bloody stools. Denies any other symptoms. Allergies: NKA \ - Physicial Exam PE: 05/29/19 12:16 GENERAL: Awake, alert, and fully oriented, in no acute distress. Very pleasant. EYES: PERRLA, EOMI, sclera anicteric, conjunctiva clear ENT: Auricles normal inspection, hearing grossly normal, nasal cannula in place , oropharynx clear without exudates. Moist mucosa NECK: Normal ROM, supple, no lymphadenopathy, JVD, or masses LUNGS: Breath sounds equal, clear to auscultation bilaterally. No wheezes, and no crackles HEART: Regular rate and rhythm, normal S1 and S2, no murmurs, rubs or gallops ABDOMEN: Soft, +RUQ ttp with no murphys sign, normoactive bowel sounds. No guarding, no rebound. No masses EXTREMITIES: Normal range of motion, no edema. No clubbing or cyanosis. No cords , erythema, or tenderness. WWP. 2+ peripheral pulses x4 BACK: No midline spinal tenderness in cervical/thoracic/lumbar region. No paraspinal ttp. No CVAT. NEUROLOGICAL: Normal speech, cranial nerves intact, equal strength and sensation b/l SKIN: Warm, Dry, normal turgor, no rashes or lesions noted. - Medical Decision Making 05/29/19 16:59 73-year-old male presents emergency department with 2 weeks of right upper quadrant pain radiating to the right lower quadrant as well as to the right flank. Differential includes cholecystitis versus biliary colic versus colitis versus enteritis versus renal colic versus musculoskeletal pain versus renal artery/ aortic dissection. Labs are unremarkable. Urinalysis is unremarkable. Right upper quadrant ultrasound is negative for acute pathology. CT scan of the abdomen and pelvis reveals COPD changes in the lungs as well as constipation. Patient was offered a rectal exam by Dr. Dumont to rule out fecal impaction but declined. Patient symptoms are likely musculoskeletal (positional, intermittent) versus due to constipation. Unlikely renal artery or aortic dissection given normal caliber of the aorta on the ultrasound as well as a CAT scan. Furthermore the patient's intermittent positional pain speaks against this, as well as his normal vitals and equal pulses in all extremities. Patient is well-appearing and clinically stable for discharge home. All reports and labs have been explained to and provided to patient. He will follow -up tomorrow with his primary care doctor at [facility]. Return precautions have been discussed. I discussed the physical exam findings, ancillary test results and final diagnoses with the patient. I answered all of the patient's questions. The patient was satisfied with the care received and felt comfortable with the discharge plan and treatment plan. The patient will call their primary care physician within 24 hours to arrange follow-up and will return to the Emergency Department with any new, persistent or worsening symptoms. Discharge - Discharge Information Problems reviewed: Yes Clinical Impression/Diagnosis: Flank pain, RUQ pain, Abdominal pain Condition: Stable Disposition: HOME - Follow up/Referral Referrals: Charis Robles [Primary Care Provider] - - Patient Discharge Instructions Patient Printed Discharge Instructions: DI for Abdominal Pain-Adult Additional Instructions: Follow up with Dr. Robles tomorrow as scheduled. Please take the provided reports and lab results tomorrow to the appointment. Take over the counter magnesium citrate to help move your bowels as you appeared constipated on the CT scan. Return to the emergency department if you have any new, worsening, or concerning symptoms. It was a pleasure to take care of you today, we hope you feel better soon! Dr. Nicholas and Dr. Dumont - Post Discharge Activity Heart Score/ECG Review #1 05/29/19 17:02 Twelve-lead EKG was performed and reviewed by me. Normal sinus rhythm, rate 64. Left axis deviation. Bifascicular block. No ST elevations.
== END 2019-05-29 16:27 | disposition home or self-care (01) ==
LOC: JER 11:04
DX: R10.9 Unspecified abdominal pain (principal); I25.10 Atherosclerotic heart disease of native coronary artery without angina pectoris; I11.0 Hypertensive heart disease with heart failure; Z95.5 Presence of coronary angioplasty implant and graft; I50.30 Unspecified diastolic (congestive) heart failure; I27.29 Other secondary pulmonary hypertension; E78.5 Hyperlipidemia, unspecified; J44.9 Chronic obstructive pulmonary disease, unspecified; Z99.81 Dependence on supplemental oxygen; G47.33 Obstructive sleep apnea (adult) (pediatric); F32.9 Major depressive disorder, single episode, unspecified; Z79.01 Long term (current) use of anticoagulants
CPT/HCPCS: 36415; 71045-TC-FY; 74177-TC; 76705-TC; 80053; 81003; 82550; 83690; 84484; 85025; 85610; 87086; 93005; 93010; 99283-25

== ENCOUNTER 2019-07-15 00:34 | Inpatient (IN) | payer OTHER ==
[2019-07-15] MEDS ORDERED: SODIUM BICARBONATE 4.2% 5 MEQ/10 ML DISP.SYRIN IVPUSH ONE (00:44)
[2019-07-15] MEDS: NOREPINEPHRINE BITARTRATE 8,000 MCG in DEXTROSE 5%-WATER - 492 ML IV SCH (00:57)
[2019-07-15] MEDS: AMIODARONE IN DEXTROSE,ISO-OSM 360 MG/200 ML BAG IVPB SCH ×2 (01:03→14:19)
[2019-07-15] MEDS ORDERED: AMIODARONE HCL 150 MG/3 ML VIAL ONE (01:04)
[2019-07-15] MEDS ORDERED: MAGNESIUM SULF 50% (8.12 MEQ/2 ML-1 GM VIAL) IVPB ONE (01:08)
[2019-07-15] MEDS ORDERED: AMIODARONE IN DEXTROSE,ISO-OSM 150 MG/100 ML BAG IVPB ONE (01:08)
[2019-07-15] MEDS ORDERED: AMIODARONE IN DEXTROSE,ISO-OSM 360 MG/200 ML BAG ONE (01:09)
--- NOTE | 2019-07-15 01:52 | PDOC ---
History of Present Illness <Chacho Smith - Last Filed: 07/15/19 10:28> - General History Source: Family () Exam Limitations: Intubated - History of Present Illness Initial Comments: 07/15/19 02:46 74 yo male pmh COPD on 4L home O2, pulmonary HTN, RADHIKA, diastolic heart failure, HTN, HLD, CAD s/p RCA DAVID (2003,2004,2019) on blood thinners presents to the ED in cardiac arrest. EMS report 3 pushes of EPI with continuos CPR on the TRACY, L tibial IO placed, attempted intubation but were unsuccessful. Total down time unknown, (HCP) states she heard a loud bang, found her face down on the floor unconscious, called EMS and initially told EMS pt is DNR/DNI but later changed her mind and ACLS was started. <Polo Song - Last Filed: 07/20/19 13:50> - General Chief Complaint: Cardiac Arrest Stated Complaint: CARDIAC ARREST Past History <Chacho Smith - Last Filed: 07/15/19 10:28> - Past Medical History Asthma: Yes Cardiac Disorders: Yes (stent, pulmonary HTN, s/p RCA stent) COPD: Yes (home o2) CHF: Yes HTN: Yes Hypercholesterolemia: Yes Psychiatric Problems: Yes (DEPRESSION) - Surgical History Cardiac Surgery: Yes (stent) - Psycho Social/Smoking Cessation Hx Smoking Status: No Smoking History: Former smoker Have you smoked in the past 12 months: No Number of Cigarettes Smoked Daily: 10 Hx Alcohol Use: No Drug/Substance Use Hx: No Substance Use Type: None Hx Substance Use Treatment: No <Polo Song - Last Filed: 07/20/19 13:50> - Past Medical History Allergies/Adverse Reactions: Allergies Allergy/AdvReac Type Severity Reaction Status Date / Time No Known Allergies Allergy Verified 05/29/19 11:12 Home Medications: Ambulatory Orders Sertraline HCl [Zoloft] 100 mg PO DAILY 01/09/12 Albuterol Sulfate Inhaler - [Ventolin HFA Inhaler -] 1 - 2 puff IH PRN PRN MDD Q4-6 hours 12/15/18 Atorvastatin Ca [Lipitor] 40 mg PO HS 12/15/18 Eplerenone 25 mg PO DAILY 12/15/18 Ezetimibe 10 mg PO DAILY 12/15/18 Lamotrigine [Lamictal] 25 mg PO DAILY 12/15/18 Metoprolol Succinate [Toprol Xl] 12.5 mg PO BID 12/15/18 Ranolazine [Ranexa] 1,000 mg PO BID 12/15/18 Fluticasone/Vilanterol [Breo Ellipta 200-25 Mcg INH] 1 puff IN DAILY 12/16/18 Amiodarone HCl 200 mg PO DAILY 05/29/19 Apixaban [Eliquis] 5 mg PO BID 05/29/19 Bumetanide [Bumex -] 1 mg PO BID 05/29/19 Review of Systems - Review of Systems Able to Perform ROS?: No (unresponsive) <Polo Song - Last Filed: 07/20/19 13:50> *Physical Exam - Vital Signs Last Vital Signs Temp Pulse Resp BP Pulse Ox 99.4 F 54 L 18 120/54 L 100 07/15/19 09:50 07/15/19 09:50 07/15/19 09:50 07/15/19 09:50 07/15/19 09:27 <Chacho Smith - Last Filed: 07/15/19 10:28> - Vital Signs Last Vital Signs Temp Pulse Resp BP Pulse Ox 13 07/15/19 01:10 - Physical Exam General Appearance: Yes: Severe Distress HEENT: positive: Other (pt intubated). negative: EOMI, NANCI Neck: negative: Carotid bruit Respiratory/Chest: negative: Crackles, Rales, Rhonchi, Stridor, Wheezing Cardiovascular: positive: Regular Rhythm, Bradycardia Vascular Pulses: Femoral (R): 3+, Femoral (L): 3+, Dorsalis-Pedis (R): 2+, Doralis-Pedis (L): 2+ Gastrointestinal/Abdominal: positive: Flat, Soft. negative: Pulsatile Mass Musculoskeletal: positive: Other (no vertebral step offs ) Extremity: positive: Normal Capillary Refill, Normal Inspection, Normal Range of Motion Integumentary: positive: Normal Color Neurologic: positive: Other (no blink to threat reflex, pupils respon sluggishly ). negative: monitor technician II-XII NML intact <Polo Song - Last Filed: 07/20/19 13:50> Procedures - Central Line Central Line Lumen: triple Central Line Position: femoral (R) Anesthesia: 1% Lidocaine Amount of anesthesia (ccs): 1 Complications: none Post Central Line Insertion: sutured, good blood return Progress: crash femoral line for resuscitation efforts due to unstable hemodynamics. <Chacho Smith - Last Filed: 07/15/19 10:28> ED Treatment Course - LABORATORY CBC & Chemistry Diagram: 07/15/19 01:20 07/15/19 01:20 - ADDITIONAL ORDERS Additional order review: Laboratory Results 07/15/19 07/15/19 07/15/19 01:20 01:20 01:20 PT with INR 19.30 H INR 1.63 H PTT (Actin FS) VBG pH 7.08 L* POC VBG pCO2 98.9 H* POC VBG pO2 < 49 H VBG HCO3 28.0 VBG O2 Sat (Roya) 46.7 L VBG Base Excess -2.7 L Sodium Potassium Chloride Carbon Dioxide Anion Gap BUN Creatinine Est GFR (CKD-EPI)AfAm Est GFR (CKD-EPI)NonAf Random Glucose Lactic Acid Calcium Magnesium Total Bilirubin AST ALT Alkaline Phosphatase Creatine Kinase Creatine Kinase Index CK-MB (CK-2) Troponin I B-Natriuretic Peptide 1166.3 H Total Protein Albumin 07/15/19 07/15/19 07/15/19 01:20 01:20 01:20 PT with INR INR PTT (Actin FS) 32.5 VBG pH POC VBG pCO2 POC VBG pO2 VBG HCO3 VBG O2 Sat (Roya) VBG Base Excess Sodium 135 L Potassium 4.5 Chloride 94 L Carbon Dioxide 29 Anion Gap 12 BUN 38.3 H Creatinine 1.6 H Est GFR (CKD-EPI)AfAm 48.81 Est GFR (CKD-EPI)NonAf 42.11 Random Glucose 333 H Lactic Acid 8.3 H* Calcium 9.0 Magnesium 6.2 H Total Bilirubin 0.7 AST 167 H ALT 117 H Alkaline Phosphatase 169 H Creatine Kinase 154 Creatine Kinase Index 2.7 CK-MB (CK-2) 4.3 H Troponin I < 0.02 B-Natriuretic Peptide Total Protein 6.1 L Albumin 2.7 L 07/15/19 01:20 RBC 2.63 L MCV 102.9 H MCHC 30.9 L RDW 15.8 MPV 8.7 Neutrophils % 69.8 Lymphocytes % 21.1 D Monocytes % 5.5 Eosinophils % 2.5 Basophils % 1.1 - Medications Given in the ED: ED Medications Discontinued Medications Generic Name Dose Route Start Last Admin Trade Name Skylar PRN Reason Stop Dose Admin Amiodarone HCl/Dextrose 150 mg in 100 mls @ 600 mls/hr 07/15/19 01:08 01:03 Nexterone 150 Mg/100 Ml Bag IVPB 07/15/19 01:17 600 mls/hr ONCE ONE Administration Protocol Propofol 1,000,000 mcg in 100 mls @ 4.763 mls/hr 07/15/19 03:30 07/15/19 04: 07 Diprivan - IVPB Not Given TITR JONH Protocol 10 MCG/KG/MIN Cefepime HCl 2 gm in 50 mls @ 100 mls/hr 07/15/19 04:03 07/15/19 05:15 Maxipime 2gm Ivpb (Premix) IVPB 07/15/19 04:32 100 mls/hr ONCE ONE Administration Protocol Sodium Chloride 1,000 mls @ 1,000 mls/hr 07/15/19 06:09 07/15/19 08:08 Normal Saline - IV 07/15/19 07:08 1,000 mls/hr ASDIR STA Administration Magnesium Sulfate 1 gm 07/15/19 01:08 07/15/19 01:04 Magnesium Sulfate IVPB 07/15/19 01:09 1 gm ONCE ONE Administration Midazolam HCl 2 mg 07/15/19 03:55 07/15/19 04:00 Versed - IVPUSH 2 mg Q2H PRN Administration SHIVERING Midazolam HCl 5 mg 07/15/19 08:09 07/15/19 08:05 Versed - IVPUSH 07/15/19 08:10 5 mg ONCE ONE Administration Vancomycin HCl 1,000 mg 07/15/19 04:02 07/15/19 05:15 Vancomycin (Pre-Docked) IVPB 07/15/19 04:03 1,000 mg ONCE ONE Administration Protocol <Chacho Smiht - Last Filed: 07/15/19 10:28> - LABORATORY CBC & Chemistry Diagram: 07/20/19 05:00 07/20/19 05:00 <Polo Song - Last Filed: 07/20/19 13:50> Medical Decision Making - Medical Decision Making 07/15/19 02:46 74 yo male pmh COPD on 4L home O2, pulmonary HTN, RADHIKA, diastolic heart failure, HTN, HLD, CAD s/p RCA DAVID (2003,2004,2018) on blood thinners presents to the ED in cardiac arrest. EMS report 3 pushes of EPI with continuos CPR on the TRACY, L tibial IO placed, attempted intubation but were unsuccessful. Total down time unknown, (HCP) states she heard a loud bang, found her face down on the floor unconscious, called EMS and initially told EMS pt is DNR/DNI but later changed her mind and ACLS was started. Continued to run ACLS as pt arrived, after total of 5 epi pushes and continued CPR with intubation, pt attained ROSC. Pt given calcium, bicarb. Atropine ( bradicardic) and an amio drip and Nor epi drip after crash femoral line placed FAST neg Organized contractility noted on bedside echo Rectal temp after ROSC 95, retal thermometer placed and will monitor for target cooling states until pt daughter arrives, he will be full code ICU and hospitalist consulted and accept pt, no ICU beds currently available Pt stable vitals for approx 1.5 hours, head CT done, no acute changes noted ED day team will continue to monitor pt until transported to ICU <Polo Song - Last Filed: 07/20/19 13:50> Discharge <Chacho Smith - Last Filed: 07/15/19 10:28> - Discharge Information Problems reviewed: Yes - Admission Yes <Polo Song - Last Filed: 07/20/19 13:50> - Discharge Information Clinical Impression/Diagnosis: Cardiac arrest Condition: Critical
[2019-07-15 02:08] LABS: VENOUS PO2 < 49 mmHg (28-48)
[2019-07-15 02:12] LABS: VENOUS PC02 98.9 mmHg (38-52); VENOUS PH 7.08 (7.31-7.41)
[2019-07-15 02:14] LABS: BASO % 1.1 % (0-2.0); EOS % 2.5 % (0-4.5); HEMATOCRIT 27.1 % (35.4-49); HEMOGLOBIN 8.4 GM/dL (11.7-16.9); LYMPH % 21.1 % (8-40); MCH 31.8 pg (25.7-33.7); MCHC 30.9 g/dl (32.0-35.9); MEAN CELL VOLUME 102.9 fl (80-96); MEAN PLT VOLUME 8.7 fl (7.5-11.1); MONO % 5.5 % (3.8-10.2); NEUT % 69.8 % (42.8-82.8); PLATELET COUNT 206 K/MM3 (134-434); RBC 2.63 M/mm3 (4.00-5.60); RDW 15.8 % (11.9-15.9); WHITE BLOOD COUNT 4.4 K/mm3 (4.0-10.0)
[2019-07-15 02:24] LABS: INR 1.63 (0.83-1.09); PROTHROMBIN TIME (PATIENT) 19.3 SEC (9.7-13.0)
[2019-07-15 02:44] LABS: ALBUMIN 2.7 g/dl (3.4-5.0); ALK PHOS 169 U/L (45-117); ANION GAP 12 MMOL/L (8-16); BILIRUBIN,TOTAL 0.7 mg/dL (0.2-1); BLOOD UREA NITROGEN 38.3 mg/dL (7-18); CHLORIDE 94 mmol/L (98-107); CO2 29 mmol/L (21-32); CREATININE 1.6 mg/dL (0.55-1.3); GLUCOSE,RANDOM 333 mg/dL (74-106); MAGNESIUM 6.2 mg/dL (1.8-2.4); POTASSIUM 4.5 mmol/L (3.5-5.1); SGOT/AST 167 U/L (15-37); SGPT/ALT 117 U/L (13-61); SODIUM 135 mmol/L (136-145); TOT PROT 6.1 g/dl (6.4-8.2)
[2019-07-15] MEDS ORDERED: PROPOFOL 0 MCG/0 ML VIAL ONE (03:14)
[2019-07-15] MEDS ORDERED: PROPOFOL 1,000,000 MCG/100 ML VIAL IVPB SCH (03:30)
--- NOTE | 2019-07-15 03:34 | CONSULT ---
Consultation: REQUESTING PROVIDER: CONSULT REQUEST: We have been asked to medically evaluate this patient for care s/p cardiac arrest in the field. HISTORY OF PRESENT ILLNESS: 73 yo M PMH COPD(4L O2), pulmonary HTN, RADHIKA, HFpEF(LVEF 60-65%, 12/20/18), moderate Aortic Stenosis, HTN, HLD, CAD s/p RCA DAVID (2003,2004,2018), pAFib(Eliquis), cardiac arrest(, November 2018) BIBA after being found down and pulseless in his home. Pts heard a loud thump and found her facedown, blood pooling from head, absence of palpable pulse. EMS arrived in ~10mins. was equivocal about resuscitation but ultimately decided to pursue it. EMS was unsuccessful at intubation in the field. Started LUCUS compression system. Upon [facility]-ED arrival, pt was found to be in asystole then PEA. ED sp Epi x5, bicarb; achieved ROSC. Intubated, Right Fem line placed. Started Levophed gtt, amiodarone gtt, MgSO4. at bedside is the HCP, states that she would like to learn about the [facility] results before making a decision on making the patient DNR. She expresses interest in obtaining a meaningful recovery REVIEW OF SYSTEMS: unable to obtain as pt is intubated and not responding to questioning PHYSICAL EXAMINATION Vital Signs - 24 hr 07/15/19 07/15/19 07/15/19 00:40 00:57 01:10 Temperature 95.3 F L Pulse Rate 0 L 34 L Respiratory 0 L 13 Rate Blood Pressure 79/66 L 77/47 L O2 Sat by Pulse 70 L Oximetry (%) 07/15/19 01:57 Temperature Pulse Rate 56 L Respiratory Rate Blood Pressure 78/47 L O2 Sat by Pulse Oximetry (%) GENERAL: not following commands. Intubated, not sedated HEAD: NC. Left periorbital soft tissue swelling w/ ecchymosis, no active bleeding EYES: Pupils ~3mm, nonreactive to light, sclera anicteric, conjunctiva clear. EARS, NOSE, THROAT: Ears normal, nares patent. NECK: supple without lymphadenopathy, JVD, or masses. LUNGS: Mild coarse BS bilaterally. Vent 500, 12, 5, 100%. ETT @24cm at the lips HEART: Regular rate and rhythm, normal S1 and S2 without murmur, rub or gallop. ABDOMEN: Soft, nontender, not distended, normoactive bowel sounds, no guarding, no rebound. MUSCULOSKELETAL: No bony deformities UPPER EXTREMITIES: 2+ pulses, cool, well-perfused. No cyanosis. No clubbing. LOWER EXTREMITIES: 2+ pulses, cool, well-perfused. No calf tenderness. No peripheral edema. NEUROLOGICAL: Not responding to questioning or sternal rub. Pupils are fixed at ~3mm SKIN: cool, dry, normal turgor, no rashes or lesions noted. Laboratory Results - last 24 hr 07/15/19 07/15/19 07/15/19 01:20 01:20 01:20 WBC 4.4 RBC 2.63 L Hgb 8.4 L Hct 27.1 L D MCV 102.9 H MCH 31.8 MCHC 30.9 L RDW 15.8 Plt Count 206 MPV 8.7 Absolute Neuts (auto) 3.0 Neutrophils % 69.8 Lymphocytes % 21.1 D Monocytes % 5.5 Eosinophils % 2.5 Basophils % 1.1 Nucleated RBC % 0 PT with INR INR PTT (Actin FS) 32.5 VBG pH POC VBG pCO2 POC VBG pO2 VBG HCO3 VBG O2 Sat (Roya) VBG Base Excess Sodium 135 L Potassium 4.5 Chloride 94 L Carbon Dioxide 29 Anion Gap 12 BUN 38.3 H Creatinine 1.6 H Est GFR (CKD-EPI)AfAm 48.81 Est GFR (CKD-EPI)NonAf 42.11 Random Glucose 333 H Calcium 9.0 Magnesium 6.2 H Total Bilirubin 0.7 AST 167 H ALT 117 H Alkaline Phosphatase 169 H Creatine Kinase 154 Creatine Kinase Index 2.7 CK-MB (CK-2) 4.3 H Troponin I < 0.02 B-Natriuretic Peptide Total Protein 6.1 L Albumin 2.7 L 07/15/19 07/15/19 07/15/19 01:20 01:20 01:20 WBC RBC Hgb Hct MCV MCH MCHC RDW Plt Count MPV Absolute Neuts (auto) Neutrophils % Lymphocytes % Monocytes % Eosinophils % Basophils % Nucleated RBC % PT with INR 19.30 H INR 1.63 H PTT (Actin FS) VBG pH 7.08 L* POC VBG pCO2 98.9 H* POC VBG pO2 < 49 H VBG HCO3 28.0 VBG O2 Sat (Roya) 46.7 L VBG Base Excess -2.7 L Sodium Potassium Chloride Carbon Dioxide Anion Gap BUN Creatinine Est GFR (CKD-EPI)AfAm Est GFR (CKD-EPI)NonAf Random Glucose Calcium Magnesium Total Bilirubin AST ALT Alkaline Phosphatase Creatine Kinase Creatine Kinase Index CK-MB (CK-2) Troponin I B-Natriuretic Peptide 1166.3 H Total Protein Albumin Active Medications Generic Name Dose Route Start Last Admin Trade Name Freq PRN Reason Stop Dose Admin Chlorhexidine Gluconate 1 applic 07/15/19 22:00 Hibiclens For Decolonization - TP HS JONH Heparin Sodium (Porcine) 5,000 unit 07/15/19 10:00 Heparin - SQ Q8H-IV JONH Norepinephrine Bitartrate 8, 500 mls @ 18.75 mls/hr 07/15/19 01:15 07/15/19 01:57 000 mcg/ Dextrose IV 10 mcg/min TITR JONH 37.5 mls/hr Titration Protocol 5 MCG/MIN Amiodarone HCl/Dextrose 360 mg in 200 mls @ 16.667 mls/hr 07/15/19 01:30 01:03 Nexterone 360 Mg/200 Ml Bag IVPB 16.667 mls/hr ASDIR JONH Administration Protocol 0.5 MG/MIN Propofol 1,000,000 mcg in 100 mls @ 4.763 mls/hr 07/15/19 03:30 Diprivan - IVPB TITR JONH Protocol 10 MCG/KG/MIN Sodium Chloride 1,000 mls @ 83 mls/hr 07/15/19 03:15 Normal Saline - IV ASDIR JONH Insulin Aspart 0 vial 07/15/19 07:00 Novolog Vial Sliding Scale - SQ ACHS JONH Protocol Mupirocin 1 applic 07/15/19 10:00 Bactroban Ointment (For Decolonization) - NS 07/20/19 09:59 BID JONH ASSESSMENT/PLAN: 73 yo M PMH COPD(4L O2), pulmonary HTN, RADHIKA, HFpEF(LVEF 60-65%, 12/20/18), moderate Aortic Stenosis, HTN, HLD, CAD s/p RCA DAVID (2003,2004,2018), pAFib(Eliquis), cardiac arrest(hn, November 2018) BIBA after being found down and pulseless in his home. Upon [facility]-ED arrival, pt was found to be in asystole then PEA. ED sp Epi x5, bicarb; achieved ROSC. Intubated, Right Fem line placed. Started Levophed gtt, amiodarone gtt, MgSO4. Admitted to ICU for oqtr-[id number]-bkmhwu care. NEURO # metabolic encephalopathy --possibly 2/2 in-field hypoxia > CTH(07/15/19): IMAGING PROGRAMMER -- neg intracranial abn; no hemorrhage, no infarct, no fx. Left frontal/periorbital scalp injury -not on sedation, pt unable to participate on neuro exam -nonresponsive pupils RESPIR # Respiratory Failure --now intubated # chronic COPD > VBG(07/15/19): 7.08/98.9/<49/28.0/46.7 > CXR --fu read -rpt ABG -holding home Trelegy Ellipta CARDIO # Post-Cardiac Arrest(ROSC after epi x5, bicarb) # hypotension # chronic pAF # chronic dyslipidemia # CAD > troponin neg x1, fu repeats > BNP 1166 -Targeted Temperature Mgmt: goal Temp <36C for at least 24hs --ice packs and cooling blanket PRN -Pressors: Levophed -Sedation: propfol -amiodarone gtt -MAP goal >65 -HOLD home Eliquis, Bumex, Metoprolol, Amiodarone PO, Eplerenone, Ezetimibe, Atorvastatin -fu repeat troponin GI # transaminitis --likely 2/2 to shock -OGT in place -NPO -trend LFTs RENAL # CANDY --2/2 to hypotension # lactic acidemia > lactic acid: 8.3 > Cr(baseline ~1.0): 1.6 > UA: neg LE, neg nitrite -gentle IVF -fu repeat lactic acid HEME/ID # macrocytic anemia -monitor H/H > UCX --pending > BCX --pending FEN -NS @83 -NPO PPX -SQH LINES -ETT @24cm -OGT -R Femoral line -Shah CODE STATUS: FULL CODE, to be further discussed with patients and patients daughter. Now DNR Dispo: We will continue to follow the patient. Thank you for this consultative opportunity. Visit type - Emergency Visit Emergency Visit: Yes ED Registration Date: 07/15/19 Care time: The patient presented to the Emergency Department on the above date and was hospitalized for further evaluation of their emergent condition. - New Patient This patient is new to me today: Yes Date on this admission: 07/15/19 - Critical Care Critical Care patient: Yes Total Critical Care Time (in minutes): 36 Critical Care Statement: The care of this patient involved high complexity decision making to prevent further life threatening deterioration of the patient's condition and/or to evaluate & treat vital organ system(s) failure or risk of failure. ATTENDING PHYSICIAN STATEMENT I saw and evaluated the patient. I reviewed the resident's note and discussed the case with the resident. I agree with the resident's findings and plan as documented. SUBJECTIVE: OBJECTIVE: ASSESSMENT AND PLAN:
[2019-07-15] MEDS ORDERED: MIDAZOLAM HCL 2 MG/2 ML SINGLE DOSE VIAL IVPUSH PRN (03:55)
[2019-07-15] MEDS ORDERED: MIDAZOLAM HCL 2 MG/2 ML SINGLE DOSE VIAL ONE ×3 (03:56→08:13)
--- NOTE | 2019-07-15 04:00 | HP ---
CHIEF COMPLAINT: cardiac arrest PCP: dr. rodriguez HISTORY OF PRESENT ILLNESS: 74 y.o. M PMH prior cardiac arrest 11/2018, COPD on 4L home o2, a-flutter, pulm HTN, RADHIKA, HFpEF, HTN, HLD, CAD s/p RCA stent, medication noncompliance presenting for cardiac arrest. According to , present at bedside, the patient was found down at home in a small pool of blood. is a doctor, noted the patient did not have a pulse and called EMS. EMS arrived within 10 mins and began resuscitative efforts w/ TRACY system but could not intubate in the field. On arrival to patient was in asystole, then PEA; patient received a total of 5 pushes epi, 1 x bicarb, ROSC achieved. Patient was hypotensive in ED, fem line placed, levo & amio gtt initiated. Intubated in ED. Spoke with patients regarding future resuscitative efforts, now signed DNR paperwork, in chart. ER course was notable for: (1) cardiac arrest-- acls protocol-- rosc achieved (2) levo. amio gtt initiated (3) CT head done pending final read Recent Travel: no PAST MEDICAL HISTORY: as per hpi PAST SURGICAL HISTORY: Social History: Smoking: quit 25 yrs ago Alcohol: social Drugs: no Allergies No Known Allergies Allergy (Verified 05/29/19 11:12) HOME MEDICATIONS: Home Medications Medication Instructions Recorded Sertraline HCl [Zoloft] 100 mg PO DAILY 01/09/12 Albuterol Sulfate Inhaler - 1 - 2 puff IH PRN PRN MDD Q4-6 12/15/18 [Ventolin HFA Inhaler -] hours Atorvastatin Ca [Lipitor] 40 mg PO HS 12/15/18 Eplerenone 25 mg PO DAILY 12/15/18 Ezetimibe 10 mg PO DAILY 12/15/18 Lamotrigine [Lamictal] 25 mg PO DAILY 12/15/18 Metoprolol Succinate [Toprol Xl] 12.5 mg PO BID 12/15/18 Ranolazine [Ranexa] 1,000 mg PO BID 12/15/18 Fluticasone/Vilanterol [Breo 1 puff IN DAILY 12/16/18 Ellipta 200-25 Mcg INH] Amiodarone HCl 200 mg PO DAILY 05/29/19 Apixaban [Eliquis] 5 mg PO BID 05/29/19 Bumetanide [Bumex -] 1 mg PO BID 05/29/19 PHYSICAL EXAMINATION Vital Signs - 24 hr 07/15/19 07/15/19 07/15/19 00:40 00:57 01:10 Temperature 95.3 F L Pulse Rate 0 L 34 L Respiratory 0 L 13 Rate Blood Pressure 79/66 L 77/47 L O2 Sat by Pulse 70 L Oximetry (%) 07/15/19 07/15/19 07/15/19 01:57 03:10 03:20 Temperature Pulse Rate 56 L 47 L 50 L Respiratory Rate Blood Pressure 78/47 L 55/40 L 87/47 L O2 Sat by Pulse Oximetry (%) GENERAL: intubated HEENT: Pupils ~2mm, fixed b/l. LUNGS: + vent sounds b/l HEART: RRR S1S2 no murmurs ABDOMEN: Soft NTND +BS. R fem line in place EXTREMITIES: 1+ radial & DP pulses palpated b/l. Left IO line in place. No peripheral edema. NEUROLOGICAL: + myoclonal jerking Laboratory Results - last 24 hr Laboratory Last Values WBC 4.4 K/mm3 (4.0-10.0) 07/15/19 01:20 RBC 2.63 M/mm3 (4.00-5.60) L 07/15/19 01:20 Hgb 8.4 GM/dL (11.7-16.9) L 07/15/19 01:20 Hct 27.1 % (35.4-49) L D 07/15/19 01:20 MCV 102.9 fl (80-96) H 07/15/19 01:20 MCH 31.8 pg (25.7-33.7) 07/15/19 01:20 MCHC 30.9 g/dl (32.0-35.9) L 07/15/19 01:20 RDW 15.8 % (11.9-15.9) 07/15/19 01:20 Plt Count 206 K/MM3 (134-434) 07/15/19 01:20 MPV 8.7 fl (7.5-11.1) 07/15/19 01:20 Absolute Neuts (auto) 3.0 K/mm3 (1.5-8.0) 02/21/20 01:20 Neutrophils % 69.8 % (42.8-82.8) 07/15/19 01:20 Lymphocytes % 21.1 % (8-40) D 07/15/19 01:20 Monocytes % 5.5 % (3.8-10.2) 07/15/19 01:20 Eosinophils % 2.5 % (0-4.5) 07/15/19 01:20 Basophils % 1.1 % (0-2.0) 07/15/19 01:20 Nucleated RBC % 0 % (0-0) 07/15/19 01:20 PT with INR 19.30 SEC (9.7-13.0) H 07/15/19 01:20 INR 1.63 (0.83-1.09) H 07/15/19 01:20 PTT (Actin FS) 32.5 SECONDS (25.2-36.5) 07/15/19 01:20 VBG pH 7.08 (7.31-7.41) L* 07/15/19 01:20 POC VBG pCO2 98.9 mmHg (38-52) H* 07/15/19 01:20 POC VBG pO2 < 49 mmHg (28-48) H 07/15/19 01:20 VBG HCO3 28.0 mmol/L (23-29) 07/15/19 01:20 VBG O2 Sat (Roya) 46.7 % (70-80) L 07/15/19 01:20 VBG Base Excess -2.7 meq/l (-2-2) L 07/15/19 01:20 Sodium 135 mmol/L (136-145) L 07/15/19 01:20 Potassium 4.5 mmol/L (3.5-5.1) 07/15/19 01:20 Chloride 94 mmol/L (98-107) L 07/15/19 01:20 Carbon Dioxide 29 mmol/L (21-32) 07/15/19 01:20 Anion Gap 12 MMOL/L (8-16) 07/15/19 01:20 BUN 38.3 mg/dL (7-18) H 07/15/19 01:20 Creatinine 1.6 mg/dL (0.55-1.3) H 07/15/19 01:20 Est GFR (CKD-EPI)AfAm 48.81 07/15/19 01:20 Est GFR (CKD-EPI)NonAf 42.11 07/15/19 01:20 Random Glucose 333 mg/dL (74-106) H 07/15/19 01:20 Calcium 9.0 mg/dL (8.5-10.1) 07/15/19 01:20 Magnesium 6.2 mg/dL (1.8-2.4) H 07/15/19 01:20 Total Bilirubin 0.7 mg/dL (0.2-1) 07/15/19 01:20 AST 167 U/L (15-37) H 07/15/19 01:20 ALT 117 U/L (13-61) H 07/15/19 01:20 Alkaline Phosphatase 169 U/L (45-117) H 07/15/19 01:20 Creatine Kinase 154 U/L (26-308) 07/15/19 01:20 Creatine Kinase Index 2.7 % (0.0-5.0) 07/15/19 01:20 CK-MB (CK-2) 4.3 ng/mL (0.5-3.6) H 07/15/19 01:20 Troponin I < 0.02 ng/ml (0.00-0.05) 07/15/19 01:20 B-Natriuretic Peptide 1166.3 pg/ml (5-125) H 07/15/19 01:20 Total Protein 6.1 g/dl (6.4-8.2) L 07/15/19 01:20 Albumin 2.7 g/dl (3.4-5.0) L 07/15/19 01:20 ASSESSMENT/PLAN: 74 y.o. M PMH prior cardiac arrest 11/2018, a-flutter on eliquis, COPD on 4L home o2, pulm HTN, RADHIKA, HFpEF, HTN, HLD, CAD s/p RCA stent, medication noncompliance presenting for cardiac arrest. #Cardiac arrest -ROSC achieved s/p 5x epi, 1x bicarb -EKG on arrival showing junctional bradycardia -soft BPs & HR holding home anti htn meds -on amio, levo gtt -trop negative x1; f/u repeat -f/u ABG, echo -targeted temperature management initiated; maintain temp <36C -CT head; imaging software validation engineer report showing no acute IC abnormalities, no hemorrhage, no visible infarct or mass. L frontal/ periorbital scalp injury -giving 1 dose vanc, cefepime -f/u blood, urine cx's, UA #Myoclonal jerks -holding sedative drips 2/2 hypotension/ bradycardia -giving 2mg IV push versed -continue to monitor #Hx a-flutter -holding eliquis in setting of acute blood loss -f/u ct head final read -f/u repeat ekg #Acute blood loss anemia -hgb drop from 11.5 to 8.4 on this visit -f/u ct head final read -macrocytosis -f/u AM cbc #CANDY -Cr 1.6 -trend renal labs -continue IVF -f/u UA #Transaminitis -shock liver -trend lft's -continue to monitor #Hyperglycemia -no hx of diabetes -continue BGMs -may initate insulin ss if glucose remains uncontrolled #FENLTD -hydrating w/ NS @75mL/hr -hypermagnesemia-- f/u AM mag -npo -R femoral line, left IO -rosenberg in place -OGT, ETT in place #PPX -DVT: hold eliquis in setting of bleeding; scds -GI: protonix 40mg IV daily #Dispo ICU Visit type - Emergency Visit Emergency Visit: Yes ED Registration Date: 07/15/19 Care time: The patient presented to the Emergency Department on the above date and was hospitalized for further evaluation of their emergent condition. - New Patient This patient is new to me today: Yes Date on this admission: 07/15/19 - Critical Care Critical Care patient: Yes Total Critical Care Time (in minutes): 45 Critical Care Statement: The care of this patient involved high complexity decision making to prevent further life threatening deterioration of the patient 's condition and/or to evaluate & treat vital organ system(s) failure or risk of failure. ATTENDING PHYSICIAN STATEMENT I saw and evaluated the patient. I reviewed the resident's note and discussed the case with the resident. I agree with the resident's findings and plan as documented. SUBJECTIVE: OBJECTIVE: ASSESSMENT AND PLAN:
[2019-07-15] MEDS ORDERED: VANCOMYCIN 1 GM in D5W (PRE-DOCKED) 1,000 MG/250 ML IVPB ONE (04:02)
[2019-07-15] MEDS ORDERED: CEFEPIME HCL/D5W 2 GM/50 ML BAG IVPB ONE (04:03)
--- NOTE | 2019-07-15 04:11 | PDOC ---
Attending Attestation - Resident Resident Name: NohemiPolo - ED Attending Attestation I have performed the following: I have examined & evaluated the patient, The case was reviewed & discussed with the resident, I agree w/resident's findings & plan, Exceptions are as noted - HPI HPI: 07/21/19 22:06 See resident HPI - Physicial Exam PE: 07/21/19 22:06 Agree with documented exam - Medical Decision Making 07/21/19 22:06 74M HTN, HLD, COPD, dCHF, CAD s/p RCA mayte, on AC presented in cardiact arrest ROSC in ED, intubated, femoral CVC placed, on amio and levo gtt admit to icu
[2019-07-15] MEDS ORDERED: VANCOMYCIN 1 GRAM (PRE-DOCKED) 1,000 MG/250 ML BAG IVPB ONE (04:59)
[2019-07-15] MEDS ORDERED: CEFEPIME 2 GM/100 ML BAG IVPB ONE (05:00)
[2019-07-15] MEDS: SODIUM CHLORIDE 1,000 ML IV SCH ×2 (05:29→18:03)
[2019-07-15 05:36] LABS: EPI CELLS 6.3 /HPF (0-5/HPF); HYALINE CASTS 34 /lpf (0-8); PH,URINE 6.5 (5.0-8.0); URINE APPEARANCE CLOUDY; URINE BACTERIA 64.5 /hpf (NEGATIVE); URINE BILIRUBIN NEGATIVE (NEGATIVE); URINE COLOR YELLOW; URINE GLUCOSE (UA) NEGATIVE (NEGATIVE); URINE KETONE NEGATIVE (NEGATIVE); URINE LEUK ESTERASE NEGATIVE (NEGATIVE); URINE NITRITE NEGATIVE (NEGATIVE); URINE PROTEIN 2+ (NEGATIVE); URINE RBC 2 /hpf (0-4)
--- NOTE | 2019-07-15 05:48 | PN ---
Teaching Attending Note Name of Resident: Niki Alva ATTENDING PHYSICIAN STATEMENT I saw and evaluated the patient. I reviewed the resident's note and discussed the case with the resident. I agree with the resident's findings and plan as documented. SUBJECTIVE: 74-year-old male status post cardiac arrest on 12/10, COPD, a flutter, pulmonary hypertension, CAD status post stent presenting status post cardiac arrest just prior to arrival to the emergency room. heard patient fall to the ground and was unresponsive, EMS was summoned and patient was brought in immediately. Patient was initially in asystole, Rosc was achieved after uncertain time. Right groin central line was placed, patient was intubated in the emergency room. Norepinephrine and amiodarone drip were initiated in the emergency room. As per discussion with patient's , she agrees for patient to be DNR. OBJECTIVE: Last Vital Signs Temp Pulse Resp BP Pulse Ox 96.2 F L 44 L 16 104/58 L 100 07/15/19 04:50 07/15/19 04:50 07/15/19 05:15 07/15/19 04:50 07/15/19 04:50 Patient is intubated, pupils are mid dilated and very sluggish to light bilaterally, minimal corneal reflex, ET tube in place, NG tube in place bilateral air entry sounds, mechanical ventilation sounds appreciated. Abdomen is soft, nontender. No rashes appreciated right groin central line, Shah catheter inplace putting out copious urine Abnormal Lab Results 07/15/19 07/15/19 07/15/19 01:20 01:20 01:20 RBC 2.63 L Hgb 8.4 L Hct 27.1 L D MCV 102.9 H MCHC 30.9 L PT with INR INR VBG pH POC VBG pCO2 POC VBG pO2 VBG O2 Sat (Roya) VBG Base Excess Sodium 135 L Chloride 94 L BUN 38.3 H Creatinine 1.6 H Random Glucose 333 H Lactic Acid 8.3 H* Magnesium 6.2 H AST 167 H ALT 117 H Alkaline Phosphatase 169 H CK-MB (CK-2) 4.3 H B-Natriuretic Peptide Total Protein 6.1 L Albumin 2.7 L Urine Protein 07/15/19 07/15/19 07/15/19 01:20 01:20 01:20 RBC Hgb Hct MCV MCHC PT with INR 19.30 H INR 1.63 H VBG pH 7.08 L* POC VBG pCO2 98.9 H* POC VBG pO2 < 49 H VBG O2 Sat (Roya) 46.7 L VBG Base Excess -2.7 L Sodium Chloride BUN Creatinine Random Glucose Lactic Acid Magnesium AST ALT Alkaline Phosphatase CK-MB (CK-2) B-Natriuretic Peptide 1166.3 H Total Protein Albumin Urine Protein 07/15/19 05:00 RBC Hgb Hct MCV MCHC PT with INR INR VBG pH POC VBG pCO2 POC VBG pO2 VBG O2 Sat (Roya) VBG Base Excess Sodium Chloride BUN Creatinine Random Glucose Lactic Acid Magnesium AST ALT Alkaline Phosphatase CK-MB (CK-2) B-Natriuretic Peptide Total Protein Albumin Urine Protein 2+ H Imaging studies reviewed ASSESSMENT AND PLAN: Critically ill 74-year-old male status post cardiac arrest with ROSC after uncertain time. Appears to be in shocklikely cardiogenic versus septic as patient had infiltrates on his chest x-ray and cannot rule out underlying pneumonia. High anion gap metabolic acidosis, severe lactic acidosis, multiorgan dysfunction, respiratory failure, possible sepsis, hypoalbuminemia, Admit to ICU Continue mechanical ventilation Obtain arterial blood gas and adjust vent settings accordingly BGM's Once NG tube is confirmed on chest x-ray may start feedings Repeat chemistry Check electrolytes and replete PRN Transthoracic echo Continue with vasopressors for hemodynamic support Avoid antihypertensive medications at this time Blood cultures x2 Infectious disease consultation Vancomycin and cefepime empirically Trend lactic acid Continue with Shah catheter and monitor urine output closely Avoid nephrotoxic medications Protonix IV for GI prophylaxis Critical care follow-up DVT prophylaxis with heparin subcutaneously Poor prognosis 40 minutes spent evaluating and treating for this critically ill patient
[2019-07-15] MEDS ORDERED: SODIUM CHLORIDE 1,000 ML IV STA (06:09)
[2019-07-15 06:24] LABS: URINE WBC 1.5 /hpf (0-5)
[2019-07-15] MEDS ORDERED: MIDAZOLAM HCL 5 MG/1 ML Single Dose Vial IVPUSH ONE (08:09)
[2019-07-15] MEDS: MIDAZOLAM 100 MG in SODIUM CHLORIDE 100 ML IVPB SCH (08:30)
[2019-07-15 09:09] LABS: ANISOCYTOSIS 1+; MACROCYTOSIS 1+; PLATELET ESTIMATE NORMAL
--- NOTE | 2019-07-15 09:16 | CON.CARD ---
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 PEA arrest from hypoxic and hypercapnic respiratory failure, noncompliant with BIPAP , PCO2 on ABG was elevated, but trended down once pt was on HFOT. Echo was performed showing preserved EF, severely dilated LA, severe mitral annular calcification, moderate . The pt was recieving Lasix for fluid overload 2/2 HFpEF. Cardiology evaluated the pt and added Eliquis for new Afib. pt was continued on HF regimen, weaning FIO2 and transferred to [facility]. Last office visit with Dr. Nguyen 06/07/2019. He presents again status post cardiac arrest just prior to arrival to the emergency room. heard patient fall to the ground and was unresponsive, EMS was summoned and patient was brought in immediately. Patient was initially in asystole, prolonged ROSC time (estimated at 30 minutes). Right groin central line was placed, patient was intubated in the emergency room and placed on cooling blanket. Norepinephrine and amiodarone drip were initiated in the emergency room. As per discussion with patient's , she agrees for patient to be DNR, currently sedated and intubated. - History Source History Provided By: Medical Record Limitations to Obtaining History: Clinical Condition - Alcohol/Substance Use Hx Alcohol Use: No - Smoking History Smoking history: Former smoker Have you smoked in the past 12 months: No Aproximately how many cigarettes per day: 10 - Social History Usual Living Arrangement: With Spouse Home Medications - Allergies Allergies/Adverse Reactions: Allergies Allergy/AdvReac Type Severity Reaction Status Date / Time No Known Allergies Allergy Verified 05/29/19 11:12 - Home Medications Home Medications: Ambulatory Orders Sertraline HCl [Zoloft] 100 mg PO DAILY 01/09/12 Albuterol Sulfate Inhaler - [Ventolin HFA Inhaler -] 1 - 2 puff IH PRN PRN MDD Q4-6 hours 12/15/18 Atorvastatin Ca [Lipitor] 40 mg PO HS 12/15/18 Eplerenone 25 mg PO DAILY 12/15/18 Ezetimibe 10 mg PO DAILY 12/15/18 Lamotrigine [Lamictal] 25 mg PO DAILY 12/15/18 Metoprolol Succinate [Toprol Xl] 12.5 mg PO BID 12/15/18 Ranolazine [Ranexa] 1,000 mg PO BID 12/15/18 Fluticasone/Vilanterol [Breo Ellipta 200-25 Mcg INH] 1 puff IN DAILY 12/16/18 Amiodarone HCl 200 mg PO DAILY 05/29/19 Apixaban [Eliquis] 5 mg PO BID 05/29/19 Bumetanide [Bumex -] 1 mg PO BID 05/29/19 Review of Systems Unable to obtain ROS, reason: Clinical condition post a Vital Signs: Vital Signs Temperature 99.4 F 07/15/19 08:30 Pulse Rate 50 L 07/15/19 09:13 Respiratory Rate 18 07/15/19 08:09 Blood Pressure 122/50 L 07/15/19 09:13 O2 Sat by Pulse Oximetry (%) 100 07/15/19 08:30 Neck: Yes: Supple Respiratory: Yes: Intubated, Mechanically Ventilated, Rhonchi Gastrointestinal: Yes: Soft, Hypoactive Bowel Sounds Cardiovascular: Yes: Regular Rate and Rhythm JVD: No Carotid Bruit: No Heart Sounds: Yes: S1, S2 Murmur: Yes: Systolic Murmur, Grade 2 Edema: Yes Edema: LLE: Trace, RLE: Trace - Other Data Labs, Other Data: CBC, BMP 07/15/19 01:20 07/15/19 01:20 INR, PTT INR 1.63 (0.83-1.09) H 07/15/19 01:20 Troponin, BNP 07/15/19 07/15/19 01:20 01:20 Troponin I < 0.02 B-Natriuretic Peptide 1166.3 H Troponin, BNP 07/15/19 07/15/19 01:20 01:20 Troponin I < 0.02 B-Natriuretic Peptide 1166.3 H Slow afib @ 49 PVC IRBBB Ejection Fraction %: LVEF > or = 40 % Imaging - Results Chest X-ray: Report Reviewed (Weak inspiratory effort) Cat Scan: Report Reviewed (HCT: No acute stroke or bleed) Problem List - Problems (1) Cardiac arrest Code(s): I46.9 - CARDIAC ARREST, CAUSE UNSPECIFIED (2) CHF exacerbation Code(s): I50.9 - HEART FAILURE, UNSPECIFIED Qualifiers: Heart failure type: diastolic Qualified Code(s): I50.33 - Acute on chronic diastolic (congestive) heart failure (3) Coronary artery disease Code(s): I25.10 - ATHSCL HEART DISEASE OF [place] CORONARY ARTERY W/O ANG PCTRS Qualifiers: Coronary Disease-Associated Artery/Lesion type: [place] artery [place] vs. transplanted heart: [place] heart Associated angina: without angina Qualified Code(s): I25.10 - Atherosclerotic heart disease of [place] coronary artery without angina pectoris (4) Hypertrophic cardiomyopathy Code(s): I42.2 - OTHER HYPERTROPHIC CARDIOMYOPATHY (5) RADHIKA (obstructive sleep apnea) Code(s): G47.33 - OBSTRUCTIVE SLEEP APNEA (ADULT) (PEDIATRIC) (6) Pulmonary hypertension assoc with unclear multi-factorial mechanisms Code(s): I27.29 - OTHER SECONDARY PULMONARY HYPERTENSION (7) S/P right coronary artery (RCA) stent placement Code(s): Z95.5 - PRESENCE OF CORONARY ANGIOPLASTY IMPLANT AND GRAFT Assessment/Plan 07/15/2019 EchoL Normal LV sie with mild cLVG and normal LV fxn LVEF 60-65%, Grade I diastolic dysfunction, mid cavity obliteration w/o gradient, functional MS 2.2 MAD, mild MR, TR, MG 11 mmHg, no pericardial effusion 12/20/2018 Normal LV size and fn LVEF 60-65%, mid cavity obliteration with no gradient obtained, normal RV size and fxn, severe LAE, mild MR, TR 11/12/2018 R&LHc Elevated right-sided pressures, moderate pulm HTN, normal PVRI , elevated PCWP, elevated LVEDP, decreased cardiac output, 1 vessel CAD with occluded prox RCA filling via bridging collaterals, hyperdynamic systolic function 11/08/2018 Echo: Mod cLVH with normal systolic function LVEF 60-65%, grade II diastolic dysfunction with elevated filling pressures, hyperdynamic mid cavity with obliteration suggestive of mid cavity obstruction, resting left ventricular outflow tract gradient 25 mmHg increasing to 33 mmHg with Valsalva, mild LAE, normal RV size and fxn, mild-mod MR, mild TR RVSP 33 mmHg 09/22/2017 Dobutamine Myoview: Moderate size inferior perfusion defect wth mild ischemia, normal LVEF 88% 12/16/2018 LE US: No DVT bilaterally, moderate atherosclerosis w/o stenosis bilaterally 12/18/2018 HCT: No acute changes 1. Post asystolic arrest, previous h/o PEA arrest 2. Acute on chronic hypercapneic, hypoxemic respiratory failure with toxic metabolic encephalopathy 3. Acute on chronic diastolic heart failure, moderate functional MS and moderate pulmonary HTN 4. COPD on home O2 5. OSAS noncompliant with cpap 6. 1 vessel CAD h/o RCA stent with h/o demand ischemia 7. Hypertensive heart disease/HOCM of elderly 8. Paroxysmal AF/flutter->NSR ([id number]) on Eliquis 9. Hyperlipidemia 10. Sick euthyroid syndrome 11. CANDY 12. Abnl LFTs 2/2 shock liver 13. R/o anoxic encephelopathy PLAN: 1. Ventilator support per ABG, BD as needed, hypothermia protocol 2. Wean pressors to maintain MAP>65 mmHg, amio gtt with monitor LFTs 3. Observe off empiric abx course 4. Hold Bumex. Eplerenone, Toprol XL, Lipitor pending hemodynamic, renal fxn and LFT stability 5. Troponin negative for [place] 6. AC held for possible UGI bleed, stress-induced ulcers place on empiric IV PPI , observe for neurologic recovery 7. Thank you for consultative opportunity
[2019-07-15] MEDS: INSULIN SLIDING SCALE (NOVOLOG) 1 VIAL SQ SCH ×2 (09:22→17:03)
[2019-07-15] MEDS ORDERED: NOREPINEPHRINE BITARTRATE 4 MG/4 ML ML IV ONE (10:57)
[2019-07-15] MEDS: PANTOPRAZOLE SODIUM 40 MG VIAL IVPUSH SCH (11:00)
--- NOTE | 2019-07-15 11:00 | EKG ---
Test Reason : Blood Pressure : / mmHG Vent. Rate : 049 BPM Atrial Rate : 023 BPM P-R Int : 000 ms QRS Dur : 128 ms QT Int : 558 ms P-R-T Axes : 000 -54 108 degrees QTc Int : 504 ms ATRIAL FIBRILLATION WITH SLOW VENTRICULAR RESPONSE WITH PREMATURE VENTRICULAR OR ABERRANTLY CONDUCTED COMPLEXES LEFT AXIS DEVIATION NON-SPECIFIC INTRA-VENTRICULAR CONDUCTION BLOCK LATERAL INFARCT (CITED ON OR BEFORE 24-DEC-2018) NONSPECIFIC ST ABNORMALITY ABNORMAL ECG WHEN COMPARED WITH ECG OF 29-MAY-2019 13:12, ATRIAL FIBRILLATION HAS REPLACED SINUS RHYTHM Confirmed by SAMMY SAAVEDRA MD ([id number]) on 07/15/2019 11:00:29 AM Referred By: Confirmed By:SAMMY SAAVEDRA MD
[2019-07-15] MEDS: HEPARIN NA (PORCINE) 5,000 UNITS/ML 1ML VIAL SQ SCH ×2 (11:23→13:40)
[2019-07-15] MEDS ORDERED: PANTOPRAZOLE SODIUM 40 MG VIAL ONE ×2 (11:32→11:33)
[2019-07-15] MEDS ORDERED: PT OWN MED DRAWER 7, Y5N ONE (11:32)
--- NOTE | 2019-07-15 11:37 | PN ---
Physical Exam: SUBJECTIVE: Patient seen and examined at bedside. Intubated and sedated. OBJECTIVE: Vital Signs Period Temp Pulse Resp BP Sys/[place] Pulse Ox Last 24 Hr 95 F-99.5 F 0-56 0-52 55-133/30-66 70-100 GENERAL: Intubated and sedated. Patient having rhythmic twitching of arms, head and eyes on tactile or auditory stimulation HEAD: Normal with no signs of trauma. EYES: Pupils equal, sluggishly reactive to light b/l NECK: Trachea midline, full range of motion, supple. LUNGS: Breath sounds equal, clear to auscultation bilaterally, no wheezes, no crackles, no accessory muscle use. HEART: Regular rate and rhythm, S1, S2 without murmur, rub or gallop. ABDOMEN: Soft, nontender, nondistended, normoactive bowel sounds, no guarding, no rebound, no hepatosplenomegaly, no masses. EXTREMITIES: 2+ pulses, warm, well-perfused, no edema. Contusions noted on the knees bilaterally. NEUROLOGICAL: Unable to perform as patient sedated Laboratory Results - last 24 hr 07/15/19 07/15/19 07/15/19 01:20 01:20 01:20 WBC 4.4 RBC 2.63 L Hgb 8.4 L Hct 27.1 L D MCV 102.9 H MCH 31.8 MCHC 30.9 L RDW 15.8 Plt Count 206 MPV 8.7 Absolute Neuts (auto) 3.0 Neutrophils % 69.8 Neutrophils % (Manual) 67.3 Band Neutrophils % 2.0 Lymphocytes % 21.1 D Lymphocytes % (Manual) 22.8 Monocytes % 5.5 Monocytes % (Manual) 3 L Eosinophils % 2.5 Eosinophils % (Manual) 2.0 Basophils % 1.1 Basophils % (Manual) 0.0 Myelocytes % (Man) 1 Promyelocytes % (Man) 0 Blast Cells % (Manual) 0 Nucleated RBC % 0 Metamyelocytes 2 Hypochromia 0 Platelet Estimate Normal Polychromasia 1+ Poikilocytosis 0 Anisocytosis 1+ Microcytosis 0 Macrocytosis 1+ PT with INR INR PTT (Actin FS) 32.5 VBG pH POC VBG pCO2 POC VBG pO2 VBG HCO3 VBG O2 Sat (Roya) VBG Base Excess Sodium 135 L Potassium 4.5 Chloride 94 L Carbon Dioxide 29 Anion Gap 12 BUN 38.3 H Creatinine 1.6 H Est GFR (CKD-EPI)AfAm 48.81 Est GFR (CKD-EPI)NonAf 42.11 POC Glucometer Random Glucose 333 H Lactic Acid Calcium 9.0 Magnesium 6.2 H Total Bilirubin 0.7 AST 167 H ALT 117 H Alkaline Phosphatase 169 H Creatine Kinase 154 Creatine Kinase Index 2.7 CK-MB (CK-2) 4.3 H Troponin I < 0.02 B-Natriuretic Peptide Total Protein 6.1 L Albumin 2.7 L Urine Color Urine Appearance Urine pH Ur Specific [place] Urine Protein Urine Glucose (UA) Urine Ketones Urine Blood Urine Nitrite Urine Bilirubin Urine Urobilinogen Ur Leukocyte Esterase Urine WBC (Auto) Urine RBC (Auto) Urine Casts (Auto) U Pathogenic Cast Auto U Epithel Cells (Auto) Urine Bacteria (Auto) Blood Type Antibody Screen 07/15/19 07/15/19 07/15/19 01:20 01:20 01:20 WBC RBC Hgb Hct MCV MCH MCHC RDW Plt Count MPV Absolute Neuts (auto) Neutrophils % Neutrophils % (Manual) Band Neutrophils % Lymphocytes % Lymphocytes % (Manual) Monocytes % Monocytes % (Manual) Eosinophils % Eosinophils % (Manual) Basophils % Basophils % (Manual) Myelocytes % (Man) Promyelocytes % (Man) Blast Cells % (Manual) Nucleated RBC % Metamyelocytes Hypochromia Platelet Estimate Polychromasia Poikilocytosis Anisocytosis Microcytosis Macrocytosis PT with INR 19.30 H INR 1.63 H PTT (Actin FS) VBG pH POC VBG pCO2 POC VBG pO2 VBG HCO3 VBG O2 Sat (Roya) VBG Base Excess Sodium Potassium Chloride Carbon Dioxide Anion Gap BUN Creatinine Est GFR (CKD-EPI)AfAm Est GFR (CKD-EPI)NonAf POC Glucometer Random Glucose Lactic Acid 8.3 H* Calcium Magnesium Total Bilirubin AST ALT Alkaline Phosphatase Creatine Kinase Creatine Kinase Index CK-MB (CK-2) Troponin I B-Natriuretic Peptide 1166.3 H Total Protein Albumin Urine Color Urine Appearance Urine pH Ur Specific [place] Urine Protein Urine Glucose (UA) Urine Ketones Urine Blood Urine Nitrite Urine Bilirubin Urine Urobilinogen Ur Leukocyte Esterase Urine WBC (Auto) Urine RBC (Auto) Urine Casts (Auto) U Pathogenic Cast Auto U Epithel Cells (Auto) Urine Bacteria (Auto) Blood Type Antibody Screen 07/15/19 07/15/19 07/15/19 01:20 05:00 05:40 WBC RBC Hgb Hct MCV MCH MCHC RDW Plt Count MPV Absolute Neuts (auto) Neutrophils % Neutrophils % (Manual) Band Neutrophils % Lymphocytes % Lymphocytes % (Manual) Monocytes % Monocytes % (Manual) Eosinophils % Eosinophils % (Manual) Basophils % Basophils % (Manual) Myelocytes % (Man) Promyelocytes % (Man) Blast Cells % (Manual) Nucleated RBC % Metamyelocytes Hypochromia Platelet Estimate Polychromasia Poikilocytosis Anisocytosis Microcytosis Macrocytosis PT with INR INR PTT (Actin FS) VBG pH 7.08 L* POC VBG pCO2 98.9 H* POC VBG pO2 < 49 H VBG HCO3 28.0 VBG O2 Sat (Roya) 46.7 L VBG Base Excess -2.7 L Sodium Potassium Chloride Carbon Dioxide Anion Gap BUN Creatinine Est GFR (CKD-EPI)AfAm Est GFR (CKD-EPI)NonAf POC Glucometer Random Glucose Lactic Acid Calcium Magnesium Total Bilirubin AST ALT Alkaline Phosphatase Creatine Kinase Creatine Kinase Index CK-MB (CK-2) Troponin I B-Natriuretic Peptide Total Protein Albumin Urine Color Yellow Urine Appearance Cloudy Urine pH 6.5 Ur Specific [place] 1.010 Urine Protein 2+ H Urine Glucose (UA) Negative Urine Ketones Negative Urine Blood Trace Urine Nitrite Negative Urine Bilirubin Negative Urine Urobilinogen 1.0 Ur Leukocyte Esterase Negative Urine WBC (Auto) 1.5 Urine RBC (Auto) 2 Urine Casts (Auto) 34 U Pathogenic Cast Auto None seen U Epithel Cells (Auto) 6.3 Urine Bacteria (Auto) 64.5 Blood Type A POSITIVE Antibody Screen Negative 07/15/19 07/15/19 07/15/19 06:00 06:10 09:12 WBC RBC Hgb Hct MCV MCH MCHC RDW Plt Count MPV Absolute Neuts (auto) Neutrophils % Neutrophils % (Manual) Band Neutrophils % Lymphocytes % Lymphocytes % (Manual) Monocytes % Monocytes % (Manual) Eosinophils % Eosinophils % (Manual) Basophils % Basophils % (Manual) Myelocytes % (Man) Promyelocytes % (Man) Blast Cells % (Manual) Nucleated RBC % Metamyelocytes Hypochromia Platelet Estimate Polychromasia Poikilocytosis Anisocytosis Microcytosis Macrocytosis PT with INR INR PTT (Actin FS) VBG pH POC VBG pCO2 POC VBG pO2 VBG HCO3 VBG O2 Sat (Roya) VBG Base Excess Sodium Potassium Chloride Carbon Dioxide Anion Gap BUN Creatinine Est GFR (CKD-EPI)AfAm Est GFR (CKD-EPI)NonAf POC Glucometer 117 Random Glucose Lactic Acid 2.9 H* Calcium Magnesium Total Bilirubin AST ALT Alkaline Phosphatase Creatine Kinase Creatine Kinase Index CK-MB (CK-2) Troponin I 0.03 B-Natriuretic Peptide Total Protein Albumin Urine Color Urine Appearance Urine pH Ur Specific [place] Urine Protein Urine Glucose (UA) Urine Ketones Urine Blood Urine Nitrite Urine Bilirubin Urine Urobilinogen Ur Leukocyte Esterase Urine WBC (Auto) Urine RBC (Auto) Urine Casts (Auto) U Pathogenic Cast Auto U Epithel Cells (Auto) Urine Bacteria (Auto) Blood Type Antibody Screen Active Medications Generic Name Dose Route Start Last Admin Trade Name Freq PRN Reason Stop Dose Admin Chlorhexidine Gluconate 1 applic 07/15/19 22:00 Hibiclens For Decolonization - TP HS JONH Heparin Sodium (Porcine) 5,000 unit 07/15/19 06:00 07/15/19 11:23 Heparin - SQ 5,000 unit TID JONH Administration Norepinephrine Bitartrate 8, 500 mls @ 18.75 mls/hr 07/15/19 01:15 07/15/19 09:13 000 mcg/ Dextrose IV 12 mcg/min TITR JONH 45 mls/hr Titration Protocol 5 MCG/MIN Amiodarone HCl/Dextrose 360 mg in 200 mls @ 16.667 mls/hr 07/15/19 01:30 01:03 Nexterone 360 Mg/200 Ml Bag IVPB 16.667 mls/hr ASDIR JONH Administration Protocol 0.5 MG/MIN Sodium Chloride 1,000 mls @ 83 mls/hr 07/15/19 03:15 07/15/19 05:29 Normal Saline - IV 83 mls/hr ASDIR JONH Administration Midazolam HCl 100 mg/ Sodium 100 mls @ 1 mls/hr 07/15/19 08:00 07/15/19 09:50 Chloride IVPB 2 mg/hr TITR JONH 2 mls/hr Titration Protocol 1 MG/HR Insulin Aspart 1 vial 07/15/19 07:00 07/15/19 09:22 Novolog Vial Sliding Scale - SQ Not Given ACHS JONH Protocol Mupirocin 1 applic 07/15/19 10:00 Bactroban Ointment (For Decolonization) - NS 07/20/19 09:59 BID JONH Pantoprazole Sodium 40 mg 07/15/19 10:00 Protonix Iv IVPUSH DAILY JONH ASSESSMENT/PLAN: 74 y.o. M PMH prior cardiac arrest 11/2018, COPD on 4L home o2, a-flutter, pulm HTN, RADHIKA, HFpEF, HTN, HLD, CAD s/p RCA stent, medication noncompliance presenting for cardiac arrest. #Neuro -sedated on versed GTT -pupils reactive to light -Patient having myoclonic jerks on stimulation; likely 2/2 anoxic brain injury -Neuro following #cardiac -BP supported on levophed GTT -s/p cardiac arrest; down time ~30-40mins -targeted temperature management initiated -cardiology following -EKG w/ junctional bradycardia; patient had bifascicular block on previous EKGs -holding home AC -Amiodarone GTT after PEA arrest #Pulmonary -intubated & sedated #renal -lactic acidosis trending down #GI -elevated transaminases likely 2/2 hypotension #FEN -NS @ 83 -replete lytes PRN -NPO #Prophy -holding AC while on TTM -protonix 40 daily IV #dispo -admit ICU -DNR per patient's Visit type - Emergency Visit Emergency Visit: Yes ED Registration Date: 07/15/19 Care time: The patient presented to the Emergency Department on the above date and was hospitalized for further evaluation of their emergent condition. - New Patient This patient is new to me today: Yes Date on this admission: 07/15/19 - Critical Care Critical Care patient: Yes Total Critical Care Time (in minutes): 50 Critical Care Statement: The care of this patient involved high complexity decision making to prevent further life threatening deterioration of the patient 's condition and/or to evaluate & treat vital organ system(s) failure or risk of failure. ATTENDING PHYSICIAN STATEMENT I saw and evaluated the patient. I reviewed the resident's note and discussed the case with the resident. I agree with the resident's findings and plan as documented. SUBJECTIVE: OBJECTIVE: ASSESSMENT AND PLAN:
[2019-07-15] MEDS ORDERED: PNEUMOC 13-VAL CONJ-DIP CRM/PF 0.5 ML DISP.SYRIN IM ONE (13:30)
[2019-07-15 13:50] LABS: BASO % 0.4 % (0-2.0); EOS % 0.1 % (0-4.5); HEMATOCRIT 27.4 % (35.4-49); LYMPH % 4.6 % (8-40); MCH 31.7 pg (25.7-33.7); MCHC 32.9 g/dl (32.0-35.9); MEAN CELL VOLUME 96.4 fl (80-96); MONO % 8.7 % (3.8-10.2); NEUT % 86.2 % (42.8-82.8); PLATELET COUNT 233 K/MM3 (134-434); RBC 2.84 M/mm3 (4.00-5.60); RDW 15.4 % (11.9-15.9); WHITE BLOOD COUNT 10.8 K/mm3 (4.0-10.0)
[2019-07-15 14:04] LABS: INR 1.67 (0.83-1.09); PROTHROMBIN TIME (PATIENT) 19.8 SEC (9.7-13.0)
--- NOTE | 2019-07-15 14:07 | PN ---
Physical Exam: SUBJECTIVE: Patient seen and examined at bedside, moving limbs/opening eyes spontaneously not exhibiting any meaningful movements, ?myoclonic jerks/ posturing. AC held due to drop in H/H and suspected GIB. Patient made DNR by . OBJECTIVE: Vital Signs Period Temp Pulse Resp BP Sys/[place] Pulse Ox Last 24 Hr 95 F-99.5 F 0-60 0-52 55-133/30-68 70-100 GA intubated and mechanically ventilated, sedated but occasionally/ spontaneously jerking upper limbs and twitching his eyes, not tracking, not following commands, no cough/gag appreciated. HEENT NC, L eye hematoma from fall, L pupil reactive but sluggish, R pupil moderately dilated and non-reactive to light, neck supple, no midline masses, dark/?bloody secretions expressing from NGT Chest coarse b/l BS CVS S1, S2+, RRR Abd soft, decreased BS, ND Ext No LE edema, spontaneously moves UE no babinski appreciated on stroking soles, pedal pulses non-palpable Neuro: doesnt follow commands, no cough or gag appreciated, sluggish L pupil, no meaningful pupil reaction on R side, ?myoclonic jerks/posturing seen at bedside by myself and staff software engineer. Laboratory Results - last 24 hr 07/15/19 07/15/19 07/15/19 01:20 01:20 01:20 WBC 4.4 RBC 2.63 L Hgb 8.4 L Hct 27.1 L D MCV 102.9 H MCH 31.8 MCHC 30.9 L RDW 15.8 Plt Count 206 MPV 8.7 Absolute Neuts (auto) 3.0 Neutrophils % 69.8 Neutrophils % (Manual) 67.3 Band Neutrophils % 2.0 Lymphocytes % 21.1 D Lymphocytes % (Manual) 22.8 Monocytes % 5.5 Monocytes % (Manual) 3 L Eosinophils % 2.5 Eosinophils % (Manual) 2.0 Basophils % 1.1 Basophils % (Manual) 0.0 Myelocytes % (Man) 1 Promyelocytes % (Man) 0 Blast Cells % (Manual) 0 Nucleated RBC % 0 Metamyelocytes 2 Hypochromia 0 Platelet Estimate Normal Polychromasia 1+ Poikilocytosis 0 Anisocytosis 1+ Microcytosis 0 Macrocytosis 1+ PT with INR INR PTT (Actin FS) 32.5 VBG pH POC VBG pCO2 POC VBG pO2 VBG HCO3 VBG O2 Sat (Roya) VBG Base Excess Sodium 135 L Potassium 4.5 Chloride 94 L Carbon Dioxide 29 Anion Gap 12 BUN 38.3 H Creatinine 1.6 H Est GFR (CKD-EPI)AfAm 48.81 Est GFR (CKD-EPI)NonAf 42.11 POC Glucometer Random Glucose 333 H Lactic Acid Calcium 9.0 Magnesium 6.2 H Total Bilirubin 0.7 AST 167 H ALT 117 H Alkaline Phosphatase 169 H Creatine Kinase 154 Creatine Kinase Index 2.7 CK-MB (CK-2) 4.3 H Troponin I < 0.02 B-Natriuretic Peptide Total Protein 6.1 L Albumin 2.7 L Urine Color Urine Appearance Urine pH Ur Specific [place] Urine Protein Urine Glucose (UA) Urine Ketones Urine Blood Urine Nitrite Urine Bilirubin Urine Urobilinogen Ur Leukocyte Esterase Urine WBC (Auto) Urine RBC (Auto) Urine Casts (Auto) U Pathogenic Cast Auto U Epithel Cells (Auto) Urine Bacteria (Auto) Blood Type Antibody Screen 07/15/19 07/15/19 07/15/19 01:20 01:20 01:20 WBC RBC Hgb Hct MCV MCH MCHC RDW Plt Count MPV Absolute Neuts (auto) Neutrophils % Neutrophils % (Manual) Band Neutrophils % Lymphocytes % Lymphocytes % (Manual) Monocytes % Monocytes % (Manual) Eosinophils % Eosinophils % (Manual) Basophils % Basophils % (Manual) Myelocytes % (Man) Promyelocytes % (Man) Blast Cells % (Manual) Nucleated RBC % Metamyelocytes Hypochromia Platelet Estimate Polychromasia Poikilocytosis Anisocytosis Microcytosis Macrocytosis PT with INR 19.30 H INR 1.63 H PTT (Actin FS) VBG pH POC VBG pCO2 POC VBG pO2 VBG HCO3 VBG O2 Sat (Roya) VBG Base Excess Sodium Potassium Chloride Carbon Dioxide Anion Gap BUN Creatinine Est GFR (CKD-EPI)AfAm Est GFR (CKD-EPI)NonAf POC Glucometer Random Glucose Lactic Acid 8.3 H* Calcium Magnesium Total Bilirubin AST ALT Alkaline Phosphatase Creatine Kinase Creatine Kinase Index CK-MB (CK-2) Troponin I B-Natriuretic Peptide 1166.3 H Total Protein Albumin Urine Color Urine Appearance Urine pH Ur Specific [place] Urine Protein Urine Glucose (UA) Urine Ketones Urine Blood Urine Nitrite Urine Bilirubin Urine Urobilinogen Ur Leukocyte Esterase Urine WBC (Auto) Urine RBC (Auto) Urine Casts (Auto) U Pathogenic Cast Auto U Epithel Cells (Auto) Urine Bacteria (Auto) Blood Type Antibody Screen 07/15/19 07/15/19 07/15/19 01:20 05:00 05:40 WBC RBC Hgb Hct MCV MCH MCHC RDW Plt Count MPV Absolute Neuts (auto) Neutrophils % Neutrophils % (Manual) Band Neutrophils % Lymphocytes % Lymphocytes % (Manual) Monocytes % Monocytes % (Manual) Eosinophils % Eosinophils % (Manual) Basophils % Basophils % (Manual) Myelocytes % (Man) Promyelocytes % (Man) Blast Cells % (Manual) Nucleated RBC % Metamyelocytes Hypochromia Platelet Estimate Polychromasia Poikilocytosis Anisocytosis Microcytosis Macrocytosis PT with INR INR PTT (Actin FS) VBG pH 7.08 L* POC VBG pCO2 98.9 H* POC VBG pO2 < 49 H VBG HCO3 28.0 VBG O2 Sat (Roya) 46.7 L VBG Base Excess -2.7 L Sodium Potassium Chloride Carbon Dioxide Anion Gap BUN Creatinine Est GFR (CKD-EPI)AfAm Est GFR (CKD-EPI)NonAf POC Glucometer Random Glucose Lactic Acid Calcium Magnesium Total Bilirubin AST ALT Alkaline Phosphatase Creatine Kinase Creatine Kinase Index CK-MB (CK-2) Troponin I B-Natriuretic Peptide Total Protein Albumin Urine Color Yellow Urine Appearance Cloudy Urine pH 6.5 Ur Specific [place] 1.010 Urine Protein 2+ H Urine Glucose (UA) Negative Urine Ketones Negative Urine Blood Trace Urine Nitrite Negative Urine Bilirubin Negative Urine Urobilinogen 1.0 Ur Leukocyte Esterase Negative Urine WBC (Auto) 1.5 Urine RBC (Auto) 2 Urine Casts (Auto) 34 U Pathogenic Cast Auto None seen U Epithel Cells (Auto) 6.3 Urine Bacteria (Auto) 64.5 Blood Type A POSITIVE Antibody Screen Negative 07/15/19 07/15/19 07/15/19 06:00 06:10 09:12 WBC RBC Hgb Hct MCV MCH MCHC RDW Plt Count MPV Absolute Neuts (auto) Neutrophils % Neutrophils % (Manual) Band Neutrophils % Lymphocytes % Lymphocytes % (Manual) Monocytes % Monocytes % (Manual) Eosinophils % Eosinophils % (Manual) Basophils % Basophils % (Manual) Myelocytes % (Man) Promyelocytes % (Man) Blast Cells % (Manual) Nucleated RBC % Metamyelocytes Hypochromia Platelet Estimate Polychromasia Poikilocytosis Anisocytosis Microcytosis Macrocytosis PT with INR INR PTT (Actin FS) VBG pH POC VBG pCO2 POC VBG pO2 VBG HCO3 VBG O2 Sat (Roya) VBG Base Excess Sodium Potassium Chloride Carbon Dioxide Anion Gap BUN Creatinine Est GFR (CKD-EPI)AfAm Est GFR (CKD-EPI)NonAf POC Glucometer 117 Random Glucose Lactic Acid 2.9 H* Calcium Magnesium Total Bilirubin AST ALT Alkaline Phosphatase Creatine Kinase Creatine Kinase Index CK-MB (CK-2) Troponin I 0.03 B-Natriuretic Peptide Total Protein Albumin Urine Color Urine Appearance Urine pH Ur Specific [place] Urine Protein Urine Glucose (UA) Urine Ketones Urine Blood Urine Nitrite Urine Bilirubin Urine Urobilinogen Ur Leukocyte Esterase Urine WBC (Auto) Urine RBC (Auto) Urine Casts (Auto) U Pathogenic Cast Auto U Epithel Cells (Auto) Urine Bacteria (Auto) Blood Type Antibody Screen 07/15/19 13:18 WBC RBC Hgb Hct MCV MCH MCHC RDW Plt Count MPV Absolute Neuts (auto) Neutrophils % Neutrophils % (Manual) Band Neutrophils % Lymphocytes % Lymphocytes % (Manual) Monocytes % Monocytes % (Manual) Eosinophils % Eosinophils % (Manual) Basophils % Basophils % (Manual) Myelocytes % (Man) Promyelocytes % (Man) Blast Cells % (Manual) Nucleated RBC % Metamyelocytes Hypochromia Platelet Estimate Polychromasia Poikilocytosis Anisocytosis Microcytosis Macrocytosis PT with INR INR PTT (Actin FS) VBG pH POC VBG pCO2 POC VBG pO2 VBG HCO3 VBG O2 Sat (Roya) VBG Base Excess Sodium Potassium Chloride Carbon Dioxide Anion Gap BUN Creatinine Est GFR (CKD-EPI)AfAm Est GFR (CKD-EPI)NonAf POC Glucometer 105 Random Glucose Lactic Acid Calcium Magnesium Total Bilirubin AST ALT Alkaline Phosphatase Creatine Kinase Creatine Kinase Index CK-MB (CK-2) Troponin I B-Natriuretic Peptide Total Protein Albumin Urine Color Urine Appearance Urine pH Ur Specific [place] Urine Protein Urine Glucose (UA) Urine Ketones Urine Blood Urine Nitrite Urine Bilirubin Urine Urobilinogen Ur Leukocyte Esterase Urine WBC (Auto) Urine RBC (Auto) Urine Casts (Auto) U Pathogenic Cast Auto U Epithel Cells (Auto) Urine Bacteria (Auto) Blood Type Antibody Screen Active Medications Generic Name Dose Route Start Last Admin Trade Name Freq PRN Reason Stop Dose Admin Chlorhexidine Gluconate 1 applic 07/15/19 22:00 Hibiclens For Decolonization - TP HS JONH Heparin Sodium (Porcine) 5,000 unit 07/15/19 06:00 07/15/19 13:40 Heparin - SQ Not Given TID JONH Norepinephrine Bitartrate 8, 500 mls @ 18.75 mls/hr 07/15/19 01:15 07/15/19 09:13 000 mcg/ Dextrose IV 12 mcg/min TITR JONH 45 mls/hr Titration Protocol 5 MCG/MIN Amiodarone HCl/Dextrose 360 mg in 200 mls @ 16.667 mls/hr 07/15/19 01:30 01:03 Nexterone 360 Mg/200 Ml Bag IVPB 16.667 mls/hr ASDIR JONH Administration Protocol 0.5 MG/MIN Sodium Chloride 1,000 mls @ 83 mls/hr 07/15/19 03:15 07/15/19 05:29 Normal Saline - IV 83 mls/hr ASDIR JONH Administration Midazolam HCl 100 mg/ Sodium 100 mls @ 1 mls/hr 07/15/19 08:00 07/15/19 09:50 Chloride IVPB 2 mg/hr TITR JONH 2 mls/hr Titration Protocol 1 MG/HR Insulin Aspart 1 vial 07/15/19 07:00 07/15/19 09:22 Novolog Vial Sliding Scale - SQ Not Given [facility] Protocol Mupirocin 1 applic 07/15/19 22:00 Bactroban Ointment (For Decolonization) - NS 07/20/19 21:59 BID JONH Pantoprazole Sodium 40 mg 07/15/19 10:00 07/15/19 11:00 Protonix Iv IVPUSH 40 mg DAILY JONH Administration ASSESSMENT/PLAN: 74 M h/o multiple cardiac arrests, Afib on AC, HTn, CAD, HLD, T2DM, obesity, depression presents s/p cardiac arrest with unknown downtime, currently being cooled as per hypothermia protocol. Patient made DNR, overall prognosis poor. CAD s/p cardiac arrest w/ unknown downtime, asystole on initial evaluation Afib on Eliquis HTN HLD DM Obesity Depression history of cardiac arrest Plan: Continue mechanical ventilation, decrease sedation to assess mental status, would recommend Neurology evaluation to assess degree of possible brain damage as if outcome is poor hypothermia protocol should be terminated Continue pressors to target MAP >65 IV PPI GI ppx Hold AC in view of suspected GIB? drop in H/H noted, dark secretions in NGT, send for FOBT, obtain T/S, CBC, transfuse PRN overall prognosis poor DNR Visit type - Emergency Visit Emergency Visit: Yes ED Registration Date: 07/15/19 Care time: The patient presented to the Emergency Department on the above date and was hospitalized for further evaluation of their emergent condition. - New Patient This patient is new to me today: Yes Date on this admission: 07/15/19 - Critical Care Critical Care patient: Yes Total Critical Care Time (in minutes): 40 Critical Care Statement: The care of this patient involved high complexity decision making to prevent further life threatening deterioration of the patient 's condition and/or to evaluate & treat vital organ system(s) failure or risk of failure. - Discharge Referral Referred to [facility] No
[2019-07-15 14:26] LABS: ALBUMIN 2.9 g/dl (3.4-5.0); BLOOD UREA NITROGEN 41.2 mg/dL (7-18); CALCIUM 8.1 mg/dL (8.5-10.1); CREATININE 1.5 mg/dL (0.55-1.3); MAGNESIUM 2.3 mg/dL (1.8-2.4); PHOSPHOROUS 2.8 mg/dL (2.5-4.9); POTASSIUM 4.9 mmol/L (3.5-5.1); TOT PROT 6.3 g/dl (6.4-8.2)
--- NOTE | 2019-07-15 15:47 | ECHO ---
Name: TRISTA HOOVER Exam:Adult Echocardiogram Study Date: 07/15/2019 02:33 PM Age: 74 yrs Height: 68 in Weight: 175 lb BSA: 1.9 m2 MMode/2D Measurements & Calculations LVOT diam: 2.0 cm LVLd ap4: 7.2 cm EDV(MOD-sp4): 67.7 ml LVLs ap4: 7.4 cm ESV(MOD-sp4): 30.1 ml SV(MOD-sp4): 37.6 ml RV S Aj: 11.6 cm/sec Doppler Measurements & Calculations MV E max aj: 181.0 cm/sec MVA(VTI): 1.4 cm2 MV A max aj: 143.8 cm/sec MV V2 max: 185.4 cm/sec MV E/A: 1.3 MV max P.0 mmHg MV dec time: 0.27 sec MV V2 mean: 110.8 cm/sec MV mean P.9 mmHg MV V2 VTI: 75.0 cm Ao V2 max: 215.3 cm/sec LV V1 max P.6 mmHg Ao max P.7 mmHg LV V1 mean P.8 mmHg Ao V2 mean: 150.3 cm/sec LV V1 max: 154.9 cm/sec Ao mean P.6 mmHg LV V1 mean: 111.1 cm/sec Ao V2 VTI: 48.5 cm LV V1 VTI: 33.6 cm MICHAEL(I,D): 2.2 cm2 MICHAEL(V,D): 2.3 cm2 MR max aj: 467.8 cm/sec SV(LVOT): 107.4 ml MR max P.5 mmHg Med Peak E' Aj: 4.8 cm/sec Med E/e': 37.8 Lat Peak E' Aj: 5.2 cm/sec Lat E/e': 34.7 Left Ventricle There is mild concentric left ventricular hypertrophy. As on the previous study, mid LV cavity oblite ration is noted. No significant gradient is obtained. Left ventricular systolic function is normal. Ejection Fr action = 60-65%. The transmitral spectral Doppler flow pattern is suggestive of pseudonormalization. Right Ventricle The right ventricle is normal in size and function. Atria The left atrium is severely dilated. Right atrial size is normal. Mitral Valve There is severe mitral annular calcification. 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 Ther e is mild mitral regurgitation. Tricuspid Valve The tricuspid valve is normal in structure and function. There is mild tricuspid regurgitation. Aortic Valve There is moderate to severe aortic valve thickening. Mild valvular aortic stenosis. No aortic regurgi tation is present. Pulmonic Valve The pulmonic valve is not well seen, but is grossly normal. There is no pulmonic valvular stenosis. T here is no pulmonic valvular regurgitation. Great Vessels The aortic root is not well visualized. Pericardium/Pleura There is no pericardial effusion. Interpretation Summary There is mild concentric left ventricular hypertrophy. The transmitral spectral Doppler flow pattern is suggestive of pseudonormalization. Left ventricular systolic function is normal. Ejection Fraction = 60-65%. The left atrium is severely dilated. There is severe mitral annular calcification. 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 There is mild tricuspid regurgitation. Mild valvular aortic stenosis. MD Flores *Otto 07/15/2019 03:46 PM
--- NOTE | 2019-07-15 15:55 | PN ---
Teaching Attending Note Name of Resident: Herbie Hansen ATTENDING PHYSICIAN STATEMENT I saw and evaluated the patient. I reviewed the resident's note and discussed the case with the resident. I agree with the resident's findings and plan as documented. SUBJECTIVE: 73 M, CAD, diastolic dysfunction, CHF, hypertensive cardiovascular disease, hyperlipidemia, previous CP arrest 12/2018, chronic hypercapneic respiratory failure due to COPD on home 4L O2, OSAS noncompliant with CPAP, Pulmonary HTN, Paroxysmal Afib on Eliquis. Admitted via the ER due to cardiac arrest at home. Rhythm on initial presentation was asystole. Appears to have a Prolonged ROSC time (estimated at 30 minutes). Emergency TLC inserted for access in the right femoral vein. Placed on norepinephrine and amiodarone drips. His has made him DNR. Intake & Output 07/12/19 07/13/19 07/14/19 07/15/19 23:59 23:59 23:59 23:59 Intake Total 731 Output Total 550 Balance 181 Weight 189 lb 9.561 oz Last Vital Signs Temp Pulse Resp BP Pulse Ox 92.2 F L 54 L 27 H 125/41 L 100 07/15/19 15:36 07/15/19 15:37 07/15/19 15:37 07/15/19 15:35 07/15/19 12:28 Active Medications Chlorhexidine Gluconate (Hibiclens For Decolonization -) 1 applic TP HS JONH Norepinephrine Bitartrate 8, (000 mcg/ Dextrose) 500 mls @ 18.75 mls/hr IV TITR JONH; Protocol Last Titration: 07/15/19 15:35 Dose: 10 mcg/min, 37.5 mls/hr Amiodarone HCl/Dextrose (Nexterone 360 Mg/200 Ml Bag) 360 mg in 200 mls @ 16.667 mls/hr IVPB ASDIR JONH; Protocol Last Admin: 07/15/19 14:19 Dose: 16.667 mls/hr Sodium Chloride (Normal Saline -) 1,000 mls @ 83 mls/hr IV ASDIR JONH Last Admin: 07/15/19 05:29 Dose: 83 mls/hr Midazolam HCl 100 mg/ Sodium (Chloride) 100 mls @ 1 mls/hr IVPB TITR JONH; Protocol Last Titration: 07/15/19 09:50 Dose: 2 mg/hr, 2 mls/hr Insulin Aspart (Novolog Vial Sliding Scale -) 1 vial SQ ACHS PENDING SALE TO [facility]; Protocol Last Admin: 07/15/19 09:22 Dose: Not Given Mupirocin (Bactroban Ointment (For Decolonization) -) 1 applic NS BID PENDING SALE TO [facility] Stop: 07/20/19 21:59 Pantoprazole Sodium (Protonix Iv) 40 mg IVPUSH DAILY PENDING SALE TO [facility] Last Admin: 07/15/19 11:00 Dose: 40 mg Gen: Intubated and sedated Neck: Yes: Supple Respiratory: Yes: Intubated, Mechanically Ventilated Gastrointestinal: Yes: Soft, Hypoactive Bowel Sounds Cardiovascular: Yes: S1S2, Bradycardia JVD: No Carotid Bruit: No Heart Sounds: Yes: S1, S2 Edema: No Laboratory Results - last 24 hr 07/15/19 07/15/19 07/15/19 01:20 01:20 01:20 WBC 4.4 RBC 2.63 L Hgb 8.4 L Hct 27.1 L D MCV 102.9 H MCH 31.8 MCHC 30.9 L RDW 15.8 Plt Count 206 MPV 8.7 Absolute Neuts (auto) 3.0 Neutrophils % 69.8 Neutrophils % (Manual) 67.3 Band Neutrophils % 2.0 Lymphocytes % 21.1 D Lymphocytes % (Manual) 22.8 Monocytes % 5.5 Monocytes % (Manual) 3 L Eosinophils % 2.5 Eosinophils % (Manual) 2.0 Basophils % 1.1 Basophils % (Manual) 0.0 Myelocytes % (Man) 1 Promyelocytes % (Man) 0 Blast Cells % (Manual) 0 Nucleated RBC % 0 Metamyelocytes 2 Hypochromia 0 Platelet Estimate Normal Polychromasia 1+ Poikilocytosis 0 Anisocytosis 1+ Microcytosis 0 Macrocytosis 1+ PT with INR INR PTT (Actin FS) 32.5 VBG pH POC VBG pCO2 POC VBG pO2 VBG HCO3 VBG O2 Sat (Roya) VBG Base Excess Sodium 135 L Potassium 4.5 Chloride 94 L Carbon Dioxide 29 Anion Gap 12 BUN 38.3 H Creatinine 1.6 H Est GFR (CKD-EPI)AfAm 48.81 Est GFR (CKD-EPI)NonAf 42.11 POC Glucometer Random Glucose 333 H Lactic Acid Calcium 9.0 Phosphorus Magnesium 6.2 H Total Bilirubin 0.7 AST 167 H ALT 117 H Alkaline Phosphatase 169 H Creatine Kinase 154 Creatine Kinase Index 2.7 CK-MB (CK-2) 4.3 H Troponin I < 0.02 B-Natriuretic Peptide Total Protein 6.1 L Albumin 2.7 L Urine Color Urine Appearance Urine pH Ur Specific [place] Urine Protein Urine Glucose (UA) Urine Ketones Urine Blood Urine Nitrite Urine Bilirubin Urine Urobilinogen Ur Leukocyte Esterase Urine WBC (Auto) Urine RBC (Auto) Urine Casts (Auto) U Pathogenic Cast Auto U Epithel Cells (Auto) Urine Bacteria (Auto) Blood Type Antibody Screen 07/15/19 07/15/19 07/15/19 01:20 01:20 01:20 WBC RBC Hgb Hct MCV MCH MCHC RDW Plt Count MPV Absolute Neuts (auto) Neutrophils % Neutrophils % (Manual) Band Neutrophils % Lymphocytes % Lymphocytes % (Manual) Monocytes % Monocytes % (Manual) Eosinophils % Eosinophils % (Manual) Basophils % Basophils % (Manual) Myelocytes % (Man) Promyelocytes % (Man) Blast Cells % (Manual) Nucleated RBC % Metamyelocytes Hypochromia Platelet Estimate Polychromasia Poikilocytosis Anisocytosis Microcytosis Macrocytosis PT with INR 19.30 H INR 1.63 H PTT (Actin FS) VBG pH POC VBG pCO2 POC VBG pO2 VBG HCO3 VBG O2 Sat (Roya) VBG Base Excess Sodium Potassium Chloride Carbon Dioxide Anion Gap BUN Creatinine Est GFR (CKD-EPI)AfAm Est GFR (CKD-EPI)NonAf POC Glucometer Random Glucose Lactic Acid 8.3 H* Calcium Phosphorus Magnesium Total Bilirubin AST ALT Alkaline Phosphatase Creatine Kinase Creatine Kinase Index CK-MB (CK-2) Troponin I B-Natriuretic Peptide 1166.3 H Total Protein Albumin Urine Color Urine Appearance Urine pH Ur Specific [place] Urine Protein Urine Glucose (UA) Urine Ketones Urine Blood Urine Nitrite Urine Bilirubin Urine Urobilinogen Ur Leukocyte Esterase Urine WBC (Auto) Urine RBC (Auto) Urine Casts (Auto) U Pathogenic Cast Auto U Epithel Cells (Auto) Urine Bacteria (Auto) Blood Type Antibody Screen 07/15/19 07/15/19 07/15/19 01:20 05:00 05:40 WBC RBC Hgb Hct MCV MCH MCHC RDW Plt Count MPV Absolute Neuts (auto) Neutrophils % Neutrophils % (Manual) Band Neutrophils % Lymphocytes % Lymphocytes % (Manual) Monocytes % Monocytes % (Manual) Eosinophils % Eosinophils % (Manual) Basophils % Basophils % (Manual) Myelocytes % (Man) Promyelocytes % (Man) Blast Cells % (Manual) Nucleated RBC % Metamyelocytes Hypochromia Platelet Estimate Polychromasia Poikilocytosis Anisocytosis Microcytosis Macrocytosis PT with INR INR PTT (Actin FS) VBG pH 7.08 L* POC VBG pCO2 98.9 H* POC VBG pO2 < 49 H VBG HCO3 28.0 VBG O2 Sat (Roya) 46.7 L VBG Base Excess -2.7 L Sodium Potassium Chloride Carbon Dioxide Anion Gap BUN Creatinine Est GFR (CKD-EPI)AfAm Est GFR (CKD-EPI)NonAf POC Glucometer Random Glucose Lactic Acid Calcium Phosphorus Magnesium Total Bilirubin AST ALT Alkaline Phosphatase Creatine Kinase Creatine Kinase Index CK-MB (CK-2) Troponin I B-Natriuretic Peptide Total Protein Albumin Urine Color Yellow Urine Appearance Cloudy Urine pH 6.5 Ur Specific [place] 1.010 Urine Protein 2+ H Urine Glucose (UA) Negative Urine Ketones Negative Urine Blood Trace Urine Nitrite Negative Urine Bilirubin Negative Urine Urobilinogen 1.0 Ur Leukocyte Esterase Negative Urine WBC (Auto) 1.5 Urine RBC (Auto) 2 Urine Casts (Auto) 34 U Pathogenic Cast Auto None seen U Epithel Cells (Auto) 6.3 Urine Bacteria (Auto) 64.5 Blood Type A POSITIVE Antibody Screen Negative 07/15/19 07/15/19 07/15/19 06:00 06:10 09:12 WBC RBC Hgb Hct MCV MCH MCHC RDW Plt Count MPV Absolute Neuts (auto) Neutrophils % Neutrophils % (Manual) Band Neutrophils % Lymphocytes % Lymphocytes % (Manual) Monocytes % Monocytes % (Manual) Eosinophils % Eosinophils % (Manual) Basophils % Basophils % (Manual) Myelocytes % (Man) Promyelocytes % (Man) Blast Cells % (Manual) Nucleated RBC % Metamyelocytes Hypochromia Platelet Estimate Polychromasia Poikilocytosis Anisocytosis Microcytosis Macrocytosis PT with INR INR PTT (Actin FS) VBG pH POC VBG pCO2 POC VBG pO2 VBG HCO3 VBG O2 Sat (Roya) VBG Base Excess Sodium Potassium Chloride Carbon Dioxide Anion Gap BUN Creatinine Est GFR (CKD-EPI)AfAm Est GFR (CKD-EPI)NonAf POC Glucometer 117 Random Glucose Lactic Acid 2.9 H* Calcium Phosphorus Magnesium Total Bilirubin AST ALT Alkaline Phosphatase Creatine Kinase Creatine Kinase Index CK-MB (CK-2) Troponin I 0.03 B-Natriuretic Peptide Total Protein Albumin Urine Color Urine Appearance Urine pH Ur Specific [place] Urine Protein Urine Glucose (UA) Urine Ketones Urine Blood Urine Nitrite Urine Bilirubin Urine Urobilinogen Ur Leukocyte Esterase Urine WBC (Auto) Urine RBC (Auto) Urine Casts (Auto) U Pathogenic Cast Auto U Epithel Cells (Auto) Urine Bacteria (Auto) Blood Type Antibody Screen 07/15/19 07/15/19 07/15/19 13:18 13:36 13:36 WBC 10.8 H RBC 2.84 L Hgb 9.0 L Hct 27.4 L MCV 96.4 H D MCH 31.7 MCHC 32.9 RDW 15.4 Plt Count 233 MPV 8.0 Absolute Neuts (auto) 9.3 H Neutrophils % 86.2 H D Neutrophils % (Manual) Band Neutrophils % Lymphocytes % 4.6 L D Lymphocytes % (Manual) Monocytes % 8.7 Monocytes % (Manual) Eosinophils % 0.1 D Eosinophils % (Manual) Basophils % 0.4 Basophils % (Manual) Myelocytes % (Man) Promyelocytes % (Man) Blast Cells % (Manual) Nucleated RBC % 0 Metamyelocytes Hypochromia Platelet Estimate Polychromasia Poikilocytosis Anisocytosis Microcytosis Macrocytosis PT with INR 19.80 H INR 1.67 H PTT (Actin FS) VBG pH POC VBG pCO2 POC VBG pO2 VBG HCO3 VBG O2 Sat (Roya) VBG Base Excess Sodium Potassium Chloride Carbon Dioxide Anion Gap BUN Creatinine Est GFR (CKD-EPI)AfAm Est GFR (CKD-EPI)NonAf POC Glucometer 105 Random Glucose Lactic Acid Calcium Phosphorus Magnesium Total Bilirubin AST ALT Alkaline Phosphatase Creatine Kinase Creatine Kinase Index CK-MB (CK-2) Troponin I B-Natriuretic Peptide Total Protein Albumin Urine Color Urine Appearance Urine pH Ur Specific [place] Urine Protein Urine Glucose (UA) Urine Ketones Urine Blood Urine Nitrite Urine Bilirubin Urine Urobilinogen Ur Leukocyte Esterase Urine WBC (Auto) Urine RBC (Auto) Urine Casts (Auto) U Pathogenic Cast Auto U Epithel Cells (Auto) Urine Bacteria (Auto) Blood Type Antibody Screen 07/15/19 07/15/19 13:36 13:36 WBC RBC Hgb Hct MCV MCH MCHC RDW Plt Count MPV Absolute Neuts (auto) Neutrophils % Neutrophils % (Manual) Band Neutrophils % Lymphocytes % Lymphocytes % (Manual) Monocytes % Monocytes % (Manual) Eosinophils % Eosinophils % (Manual) Basophils % Basophils % (Manual) Myelocytes % (Man) Promyelocytes % (Man) Blast Cells % (Manual) Nucleated RBC % Metamyelocytes Hypochromia Platelet Estimate Polychromasia Poikilocytosis Anisocytosis Microcytosis Macrocytosis PT with INR INR PTT (Actin FS) VBG pH POC VBG pCO2 POC VBG pO2 VBG HCO3 VBG O2 Sat (Roya) VBG Base Excess Sodium 135 L Potassium 4.9 Chloride 98 Carbon Dioxide 34 H Anion Gap 3 L BUN 41.2 H Creatinine 1.5 H Est GFR (CKD-EPI)AfAm 52.77 Est GFR (CKD-EPI)NonAf 45.53 POC Glucometer Random Glucose 161 H Lactic Acid Calcium 8.1 L Phosphorus 2.8 Magnesium 2.3 Total Bilirubin 1.0 AST 192 H ALT 179 H Alkaline Phosphatase 177 H Creatine Kinase Creatine Kinase Index CK-MB (CK-2) Troponin I B-Natriuretic Peptide Total Protein 6.3 L Albumin 2.9 L Urine Color Urine Appearance Urine pH Ur Specific [place] Urine Protein Urine Glucose (UA) Urine Ketones Urine Blood Urine Nitrite Urine Bilirubin Urine Urobilinogen Ur Leukocyte Esterase Urine WBC (Auto) Urine RBC (Auto) Urine Casts (Auto) U Pathogenic Cast Auto U Epithel Cells (Auto) Urine Bacteria (Auto) Blood Type A POSITIVE Antibody Screen Negative Imaging - Results Chest X-ray: Report Reviewed (Weak inspiratory effort/increased lung markings) Cat Scan: Report Reviewed (HCT: No acute stroke or bleed) Assessment/Plan S/P CP Arrest with likely ROBERT Previous history of PEA arrest Acute on chronic hypercapneic and hypoxemic respiratory failure Acute on chronic diastolic heart failure COPD OSAS CAD Paroxysmal AF/flutter HPL CANDY AC Mode of vent Pressors to maintain MAP > 65 Empiric ABX Panculture Check ABG Follow CXR Strict I & O IVF resuscitation VTE prophylaxis BD TX PRN Would monitor off systemic steroids DNR Requires ICU monitoring Dr Gaming Critical care time spent in reviewing chart, evaluating patient and formulating plan - 36 minutes.
[2019-07-15 16:31] LABS: ARTERIAL BLD GAS O2 SATURATION 86.8 % (95-98); ARTERIAL BLOOD GAS BASE EXCESS 2.9 meq/l (-2-2); ARTERIAL BLOOD GAS PCO2 62.6 mmHg (35-45); ARTERIAL BLOOD GAS PO2 62.4 mmHg (80-100); ARTERIAL BLOOD GAS pH 7.31 (7.35-7.45)
[2019-07-15 16:40] LABS: ALLENS TEST POSITIVE
[2019-07-15 18:11] LABS: ARTERIAL BLD GAS O2 SATURATION 90.3 % (95-98); ARTERIAL BLOOD GAS BASE EXCESS 3.9 meq/l (-2-2); ARTERIAL BLOOD GAS PCO2 53.8 mmHg (35-45); ARTERIAL BLOOD GAS PO2 63.9 mmHg (80-100); ARTERIAL BLOOD GAS pH 7.36 (7.35-7.45)
[2019-07-15 18:14] LABS: ALLENS TEST POSITIVE
--- NOTE | 2019-07-15 20:17 | CONSULT ---
Consult - text type - Consultation Consultation Note: NEUROLOGY CONSULTATION is greatly appreciated: Events reviewed and discussed with ICU residents. Patient examined. This 74 yo man with h/o HTN, Chol, COPD, and severe ASHD is s/p Multiple stents. CHF and AFib. Maintained on: Sertraline 100; Albuterol; Atorvastatin; Eplerenone; Ezetimibe; Lamotrigine 25; Metoprolol 12.5 mg PO BID; ranexa; Fluticasone/Vilanterol; Amiodarone HCl 200 mg PO; Apixaban 5 mg PO BID; and Bumetanide 1 mg PO BID. Today, was alerted by crash and found patient face down, unresponsive and pulseless. He could not be intubated by EMS due to facial trauma. Intubated in ED and resuscitated. Approx downtime 30-[address] of head (reviewed): Mild atrophy and microvascular changes. Now: Intubated in ICU. On Versed, cooling blanket. Off Propofol. SANDY: Orbital ecchymoses (L>R). B/L Knee abrasions. Intubated. + Shah. Cor reg ( ?). Chest burn. NEURO: No response to name. Possible decorticate posturing to sternal pressure Robust spontaneous respirations. Both pupils react. + Horizontal Doll's head Corneals - OD, trace OS Spontaneous chewing mandibular mov'ts Spontaneous decorticate posturing R arm > Left but also: episodic tonic and Clonic mov'ts of right arm or both arms (synchronously) Areflexic. Plantars silent No response to pinch all 4's. IMP: Severe, B/L cerebral dysfunction c/w anoxic encephalopathy. Exam limited by Midazolam infusion. However, spontaneous limb and facial mov'ts are more suggestive of seizures than decorticate posturing. SUGGEST: Continue current Rx. Load with levetircetam 1000 mg IV over 1 hr and observe the spontaneous arm movements. Then continue levetiracetam 500 mg q 12 hrs. Can also increase midazolam drip if seizures continue. Thank you very much, Kelton Moreno MD
[2019-07-15] MEDS ORDERED: levETIRAcetam 500 MG/5 ML INJECTION VIAL IVPB ONE (20:18)
[2019-07-15] MEDS: MUPIROCIN 2% TOPICAL OINTMENT FOR DECOLONIZATION NS SCH (21:46)
[2019-07-15] MEDS: CHLORHEXIDINE GLUCONATE 4% CLEANSER FOR DECOLONIZATION TP SCH (21:49)
[2019-07-16] MEDS: NOREPINEPHRINE BITARTRATE 8,000 MCG in DEXTROSE 5%-WATER - 492 ML IV SCH (00:55)
[2019-07-16] MEDS: AMIODARONE IN DEXTROSE,ISO-OSM 360 MG/200 ML BAG IVPB SCH ×2 (05:24→19:00)
[2019-07-16] MEDS: levETIRAcetam 500 MG/5 ML INJECTION VIAL IVPB SCH ×2 (06:12→18:07)
[2019-07-16 06:43] LABS: BASO % 0.3 % (0-2.0); EOS % 0.1 % (0-4.5); HEMATOCRIT 27.4 % (35.4-49); HEMOGLOBIN 9.1 GM/dL (11.7-16.9); LYMPH % 5.2 % (8-40); MCH 31.5 pg (25.7-33.7); MEAN CELL VOLUME 95.2 fl (80-96); MEAN PLT VOLUME 8.4 fl (7.5-11.1); MONO % 7.3 % (3.8-10.2); NEUT % 87.1 % (42.8-82.8); PLATELET COUNT 231 K/MM3 (134-434); RBC 2.88 M/mm3 (4.00-5.60); RDW 15.5 % (11.9-15.9); WHITE BLOOD COUNT 11.3 K/mm3 (4.0-10.0)
[2019-07-16 06:57] LABS: INR 1.56 (0.83-1.09); PROTHROMBIN TIME (PATIENT) 18.5 SEC (9.7-13.0)
[2019-07-16 06:59] LABS: ACTIVATED PTT 40.2 SECONDS (25.2-36.5)
[2019-07-16 07:20] LABS: ALLENS TEST POSITIVE; ARTERIAL BLD GAS O2 SATURATION 92.6 % (95-98); ARTERIAL BLOOD GAS BASE EXCESS 3.1 meq/l (-2-2); ARTERIAL BLOOD GAS PCO2 50.4 mmHg (35-45); ARTERIAL BLOOD GAS PO2 70.2 mmHg (80-100); ARTERIAL BLOOD GAS pH 7.37 (7.35-7.45)
[2019-07-16 07:48] LABS: ALBUMIN 2.9 g/dl (3.4-5.0); ALK PHOS 165 U/L (45-117); ANION GAP 6 MMOL/L (8-16); BILIRUBIN,TOTAL 0.8 mg/dL (0.2-1); BLOOD UREA NITROGEN 42.6 mg/dL (7-18); CALCIUM 8.4 mg/dL (8.5-10.1); CHLORIDE 97 mmol/L (98-107); CO2 30 mmol/L (21-32); CREATININE 1.4 mg/dL (0.55-1.3); GLUCOSE,RANDOM 122 mg/dL (74-106); MAGNESIUM 2.4 mg/dL (1.8-2.4); POTASSIUM 4.3 mmol/L (3.5-5.1); SGOT/AST 164 U/L (15-37); SGPT/ALT 156 U/L (13-61); SODIUM 133 mmol/L (136-145); TOT PROT 6.2 g/dl (6.4-8.2)
[2019-07-16] MEDS: INSULIN SLIDING SCALE (NOVOLOG) 1 VIAL SQ SCH ×4 (07:55→17:19)
--- NOTE | 2019-07-16 08:56 | PN ---
Progress Note (short form) - Note Progress Note: Pulm/CCM Pt seen and examined in ICU 24HR: -loaded with keppra by neuro -on midaz gtt, still with some jerking mvt, no overt sz, possibly decorticate -s/p hypothermia, rewarming on going -GPC in blood 1/2 Current Medications Chlorhexidine Gluconate (Hibiclens For Decolonization -) 1 applic TP HS JONH Last Admin: 07/15/19 21:49 Dose: 1 applic Norepinephrine Bitartrate 8, (000 mcg/ Dextrose) 500 mls @ 18.75 mls/hr IV TITR JONH; Protocol Last Admin: 07/16/19 00:55 Dose: 9 mcg/min, 33.75 mls/hr Amiodarone HCl/Dextrose (Nexterone 360 Mg/200 Ml Bag) 360 mg in 200 mls @ 16.667 mls/hr IVPB ASDIR JONH; Protocol Last Admin: 07/16/19 05:24 Dose: 16.667 mls/hr Sodium Chloride (Normal Saline -) 1,000 mls @ 83 mls/hr IV ASDIR JONH Last Admin: 07/15/19 18:03 Dose: 83 mls/hr Midazolam HCl 100 mg/ Sodium (Chloride) 100 mls @ 1 mls/hr IVPB TITR JONH; Protocol Last Titration: 07/16/19 06:12 Dose: 3 mg/hr, 3 mls/hr Insulin Aspart (Novolog Vial Sliding Scale -) 1 vial SQ TIDAC JONH; Protocol Last Admin: 07/16/19 07:55 Dose: Not Given Levetiracetam (Keppra Injection -) 500 mg IVPB 0600,[facility] Last Admin: 07/16/19 06:12 Dose: 500 mg Mupirocin (Bactroban Ointment (For Decolonization) -) 1 applic NS BID JONH Stop: 07/20/19 21:59 Last Admin: 07/15/19 21:46 Dose: 1 applic Pantoprazole Sodium (Protonix Iv) 40 mg IVPUSH DAILY JONH Last Admin: 07/15/19 11:00 Dose: 40 mg Vital Signs Temp 92.3 F L 07/16/19 07:50 Pulse 54 L 07/16/19 08:26 Resp 30 H 07/16/19 08:26 BP 135/53 L 07/16/19 07:50 Pulse Ox 95 07/16/19 08:26 Intake & Output 07/15/19 07/15/19 07/16/19 11:59 23:59 11:59 Intake Total 1273 949 Output Total 150 400 350 Balance -150 873 599 Weight 79.379 kg 86 kg 84.867 kg Intake: IV 1156 949 Normal Saline - 1,000 ml 1134 935 @ 1000 mls/hr IV ASDIR STA Rx#:[id number] Versed - 100 mg In Normal 22 14 Saline - 100 ml @ 1 MG/ HR 1 mls/hr IVPB TITR JONH Rx#:[id number] IVPB 117 Output: Urine 150 400 350 Shah 150 400 350 Other: Voiding Method Indwelling Catheter Indwelling Catheter Indwelling Catheter Bowel Movement No No Height 5 ft 8 in 5 ft 8 in Body Mass Index (BMI) 26.6 28.8 Weight Measurement Method Built in [facility] Weight Measurement Method Estimated by Staff CBC, BMP 07/16/19 05:15 07/16/19 05:15 Microbiology 07/15/19 01:20 Blood - Arterial Blood Culture - Preliminary Pending Organism---GPC 07/15/19 01:20 Blood - Arterial Blood Culture - Preliminary NO GROWTH OBTAINED AFTER 24 HOURS, INCUBATION TO CONTINUE FOR 4 DAYS. CXR with worsening L basilar infiltrate PE: Gen: Intubated and sedated Neck: Yes: Supple Head: ecchymosis L>R orbit Respiratory: Yes: Intubated, Mechanically Ventilated, coarse bilat Gastrointestinal: Yes: Soft, Hypoactive Bowel Sounds Cardiovascular: Yes: S1S2, Bradycardia JVD: No Heart Sounds: Yes: S1, S2, reg Edema: No ext: distal mottling, 1+ DP pulses Neuro: possible decort posturing with sternal rub, pupils reactive at 4mm bilaterally S/P CP Arrest with likely ROBERT Previous history of PEA arrest Acute on chronic hypercapneic and hypoxemic respiratory failure Acute on chronic diastolic heart failure Anoxic encephalopathy, s/p therapeutic hypothermia COPD OSAS CAD Paroxysmal AF/flutter HPL CANDY AC Mode of vent Pressors to maintain MAP > 65 Broad coverage, repeat bcxl today Panculture Follow CXR Strict I & O IVF resuscitation VTE prophylaxis BD TX PRN Would monitor off systemic steroids DNR Requires ICU monitoring [place] ACNP
[2019-07-16] MEDS ORDERED: VANCOMYCIN 1 GRAM (PRE-DOCKED) 1,000 MG/250 ML BAG IVPB ONE (09:23)
[2019-07-16] MEDS ORDERED: cefTRIAXone SODIUM 1 GM VIAL ONE (09:42)
[2019-07-16] MEDS ORDERED: DEXTROSE 5%-WATER - 50 ML IVPB ONE (09:42)
[2019-07-16] MEDS: SODIUM CHLORIDE 1,000 ML IV SCH ×2 (09:48→22:00)
[2019-07-16] MEDS: MIDAZOLAM 100 MG in SODIUM CHLORIDE 100 ML IVPB SCH ×2 (09:49→12:31)
[2019-07-16] MEDS: CEFTRIAXONE 1 GM in DEXTROSE 5%-WATER - 50 ML IVPB SCH (09:54)
[2019-07-16] MEDS: PANTOPRAZOLE SODIUM 40 MG VIAL IVPUSH SCH (09:54)
[2019-07-16] MEDS: MUPIROCIN 2% TOPICAL OINTMENT FOR DECOLONIZATION NS SCH ×2 (10:20→21:25)
--- NOTE | 2019-07-16 10:29 | PN ---
Progress Note, Physician Chief Complaint: Events noted Remains intubated Made DNR by family yesterday History of Present Illness: Patient seen in ICU. Chart was reviewed Mechanical ventilator Unresponsive post cardiac arrest - Current Medication List Current Medications: Active Medications Chlorhexidine Gluconate (Hibiclens For Decolonization -) 1 applic TP HS JONH Last Admin: 07/15/19 21:49 Dose: 1 applic Norepinephrine Bitartrate 8, (000 mcg/ Dextrose) 500 mls @ 18.75 mls/hr IV TITR JONH; Protocol Last Admin: 07/16/19 00:55 Dose: 9 mcg/min, 33.75 mls/hr Amiodarone HCl/Dextrose (Nexterone 360 Mg/200 Ml Bag) 360 mg in 200 mls @ 16.667 mls/hr IVPB ASDIR JONH; Protocol Last Admin: 07/16/19 05:24 Dose: 16.667 mls/hr Sodium Chloride (Normal Saline -) 1,000 mls @ 83 mls/hr IV ASDIR JONH Last Admin: 07/16/19 09:48 Dose: Not Given Midazolam HCl 100 mg/ Sodium (Chloride) 100 mls @ 1 mls/hr IVPB TITR JONH; Protocol Last Admin: 07/16/19 09:49 Dose: Not Given Ceftriaxone Sodium 1 gm/ (Dextrose) 50 mls @ 100 mls/hr IVPB DAILY JONH; Protocol Last Admin: 07/16/19 09:54 Dose: 100 mls/hr Vancomycin HCl (Vancomycin (Pre-Docked)) 1,000 mg in 250 mls @ 166.667 mls/hr IVPB ONCE ONE; Protocol Stop: 07/16/19 10:52 Last Admin: 07/16/19 09:53 Dose: 166.667 mls/hr Insulin Aspart (Novolog Vial Sliding Scale -) 1 vial SQ TIDAC JONH; Protocol Last Admin: 07/16/19 07:55 Dose: Not Given Levetiracetam (Keppra Injection -) 500 mg IVPB 0600,1800 [facility] Last Admin: 07/16/19 06:12 Dose: 500 mg Mupirocin (Bactroban Ointment (For Decolonization) -) 1 applic NS BID JONH Stop: 07/20/19 21:59 Last Admin: 07/16/19 10:20 Dose: 1 applic Pantoprazole Sodium (Protonix Iv) 40 mg IVPUSH DAILY JONH Last Admin: 07/16/19 09:54 Dose: 40 mg - Objective Vital Signs: Vital Signs Temperature 94.4 F L 07/16/19 09:00 Pulse Rate 55 L 07/16/19 09:00 Respiratory Rate 28 H 07/16/19 09:00 Blood Pressure 145/50 L 07/16/19 09:00 O2 Sat by Pulse Oximetry (%) 95 07/16/19 08:26 Cardiovascular: Yes: Regular Rate and Rhythm, Murmur (2/6 SM), S1, S2 Respiratory: Yes: Diminished, Mechanically Ventilated Gastrointestinal: Yes: Normal Bowel Sounds, Soft. No: Tenderness Edema: Yes Edema: LLE: Trace, RLE: Trace Labs: CBC, BMP 07/16/19 05:15 07/16/19 05:15 INR, PTT INR 1.56 (0.83-1.09) H 07/16/19 05:15 Problem List - Problems (1) Cardiac arrest Code(s): I46.9 - CARDIAC ARREST, CAUSE UNSPECIFIED (2) Atrial flutter with controlled response Code(s): I48.92 - UNSPECIFIED ATRIAL FLUTTER (3) Coronary artery disease Code(s): I25.10 - ATHSCL HEART DISEASE OF [place] CORONARY ARTERY W/O ANG PCTRS Qualifiers: Coronary Disease-Associated Artery/Lesion type: [place] artery [place] vs. transplanted heart: [place] heart Associated angina: without angina Qualified Code(s): I25.10 - Atherosclerotic heart disease of [place] coronary artery without angina pectoris (4) Hyperlipidemia Code(s): E78.5 - HYPERLIPIDEMIA, UNSPECIFIED Qualifiers: Hyperlipidemia type: pure hypercholesterolemia Qualified Code(s): E78.00 - Pure hypercholesterolemia, unspecified; E78.0 - Pure hypercholesterolemia (5) Hypertensive cardiomyopathy Code(s): I11.9 - HYPERTENSIVE HEART DISEASE WITHOUT HEART FAILURE; I43 - CARDIOMYOPATHY IN DISEASES CLASSIFIED ELSEWHERE Qualifiers: Heart failure presence: with heart failure Qualified Code(s): I11.0 - Hypertensive heart disease with heart failure; I43 - Cardiomyopathy in diseases classified elsewhere (6) Hypertrophic cardiomyopathy Code(s): I42.2 - OTHER HYPERTROPHIC CARDIOMYOPATHY (7) RADHIKA (obstructive sleep apnea) Code(s): G47.33 - OBSTRUCTIVE SLEEP APNEA (ADULT) (PEDIATRIC) (8) Pulmonary hypertension assoc with unclear multi-factorial mechanisms Code(s): I27.29 - OTHER SECONDARY PULMONARY HYPERTENSION (9) S/P right coronary artery (RCA) stent placement Code(s): Z95.5 - PRESENCE OF CORONARY ANGIOPLASTY IMPLANT AND GRAFT (10) Toxic metabolic encephalopathy Code(s): G92 - TOXIC ENCEPHALOPATHY Assessment/Plan 1. Post asystolic arrest, previous h/o PEA arrest currently on mechanical ventilator 2. Acute on chronic hypercapneic, hypoxemic respiratory failure with toxic metabolic encephalopathy 3. Acute on chronic diastolic heart failure, moderate functional MS and moderate pulmonary HTN 4. COPD on home O2 5. OSAS noncompliant with CPAP 6. 1 vessel CAD history of RCA stent with h/o demand ischemia 7. Hypertensive heart disease/HOCM of elderly 8. Paroxysmal AF/flutter ([id number]) on Eliquis 9. Hyperlipidemia 10. Sick euthyroid syndrome 11. CANDY 12. Abnl LFTs 2/2 shock liver 13. Rule out anoxic encephalopathy PLAN: 1. Ventilator support per ABG and hypothermia protocol 2. Wean pressors to maintain MAP>65 mmHg and Amiodarone gtt with monitor LFTs 3. Hold Bumex. Eplerenone, Toprol XL, Lipitor pending hemodynamic, renal function and LFT stability 4. Anticoagulation held until when able to be restarted. 5. Empiric IV PPI (GI prophylaxis) 6. Observe for neurologic recovery Meliton Garcia MD
[2019-07-16] MEDS ORDERED: MIDAZOLAM IN 0.9 % SOD.CHLORID 1 MG/1 ML PLAST..BAG ONE (12:28)
--- NOTE | 2019-07-16 15:11 | PN ---
Physical Exam: SUBJECTIVE: Patient seen and examined; reaching out to family Cannot obtain ROS due to clinical picture OBJECTIVE: Vital Signs Period Temp Pulse Resp BP Sys/[place] Pulse Ox Last 24 Hr 92.2 F-94.5 F 50-69 24-31 96-145/36-107 95-99 Intubated and sedated Decorticate posturing Vent associared breath sounds, NT ND ET Tube in place IV access in place as documented CN2-12 wnl, +reflexes Laboratory Results - last 24 hr 07/15/19 07/15/19 07/15/19 15:59 17:01 17:50 WBC RBC Hgb Hct MCV MCH MCHC RDW Plt Count MPV Absolute Neuts (auto) Neutrophils % Lymphocytes % Monocytes % Eosinophils % Basophils % Nucleated RBC % PT with INR INR PTT (Actin FS) Anticoagulation Therapy No Result Required. No Result Required. Puncture Site Right brachial Left radial ABG pH 7.31 L 7.36 ABG pCO2 at Pt Temp 62.6 H 53.8 H ABG pO2 at Pt Temp 62.4 L 63.9 L ABG HCO3 30.2 H 29.7 H ABG O2 Sat (Measured) 86.8 L 90.3 L ABG O2 Content 15.1 13.3 ABG Base Excess 2.9 H 3.9 H Dante Test Positive Positive O2 Delivery Device No Result Required. No Result Required. Oxygen Flow Rate Yes Yes Vent Mode No Result Required. No Result Required. Vent Rate No Result Required. No Result Required. Mechanical Rate No Result Required. No Result Required. PEEP 5.0 5.0 Pressure Support Vent No Result Required. No Result Required. Sodium Potassium Chloride Carbon Dioxide Anion Gap BUN Creatinine Est GFR (CKD-EPI)AfAm Est GFR (CKD-EPI)NonAf POC Glucometer 126 Random Glucose Calcium Phosphorus Magnesium Total Bilirubin AST ALT Alkaline Phosphatase Creatine Kinase Creatine Kinase Index CK-MB (CK-2) Troponin I Total Protein Albumin 07/16/19 07/16/19 07/16/19 05:15 05:15 05:15 WBC 11.3 H RBC 2.88 L Hgb 9.1 L Hct 27.4 L MCV 95.2 MCH 31.5 MCHC 33.0 RDW 15.5 Plt Count 231 MPV 8.4 Absolute Neuts (auto) 9.8 H Neutrophils % 87.1 H Lymphocytes % 5.2 L Monocytes % 7.3 Eosinophils % 0.1 Basophils % 0.3 Nucleated RBC % 0 PT with INR 18.50 H INR 1.56 H PTT (Actin FS) 40.2 H Anticoagulation Therapy Puncture Site ABG pH ABG pCO2 at Pt Temp ABG pO2 at Pt Temp ABG HCO3 ABG O2 Sat (Measured) ABG O2 Content ABG Base Excess Dante Test O2 Delivery Device Oxygen Flow Rate Vent Mode Vent Rate Mechanical Rate PEEP Pressure Support Vent Sodium 133 L Potassium 4.3 Chloride 97 L Carbon Dioxide 30 Anion Gap 6 L BUN 42.6 H Creatinine 1.4 H Est GFR (CKD-EPI)AfAm 57.36 Est GFR (CKD-EPI)NonAf 49.49 POC Glucometer Random Glucose 122 H Calcium 8.4 L Phosphorus 3.0 Magnesium 2.4 Total Bilirubin 0.8 AST 164 H ALT 156 H Alkaline Phosphatase 165 H Creatine Kinase 363 H Creatine Kinase Index 3.0 CK-MB (CK-2) 11.1 H Troponin I < 0.02 Total Protein 6.2 L Albumin 2.9 L 07/16/19 07/16/19 07:02 10:27 WBC RBC Hgb Hct MCV MCH MCHC RDW Plt Count MPV Absolute Neuts (auto) Neutrophils % Lymphocytes % Monocytes % Eosinophils % Basophils % Nucleated RBC % PT with INR INR PTT (Actin FS) Anticoagulation Therapy No Result Required. Puncture Site Left radial ABG pH 7.37 ABG pCO2 at Pt Temp 50.4 H ABG pO2 at Pt Temp 70.2 L ABG HCO3 28.4 H ABG O2 Sat (Measured) 92.6 L ABG O2 Content 11.7 ABG Base Excess 3.1 H Dante Test Positive O2 Delivery Device No Result Required. Oxygen Flow Rate 80 Vent Mode No Result Required. Vent Rate No Result Required. Mechanical Rate No Result Required. PEEP 5.0 Pressure Support Vent 500 Sodium Potassium Chloride Carbon Dioxide Anion Gap BUN Creatinine Est GFR (CKD-EPI)AfAm Est GFR (CKD-EPI)NonAf POC Glucometer 113 Random Glucose Calcium Phosphorus Magnesium Total Bilirubin AST ALT Alkaline Phosphatase Creatine Kinase Creatine Kinase Index CK-MB (CK-2) Troponin I Total Protein Albumin Active Medications Generic Name Dose Route Start Last Admin Trade Name Freq PRN Reason Stop Dose Admin Chlorhexidine Gluconate 1 applic 07/15/19 22:00 07/15/19 21:49 Hibiclens For Decolonization - TP 1 applic HS JONH Administration Norepinephrine Bitartrate 8, 500 mls @ 18.75 mls/hr 07/15/19 01:15 07/16/19 00:55 000 mcg/ Dextrose IV 9 mcg/min TITR JONH 33.75 mls/hr Administration Protocol 5 MCG/MIN Amiodarone HCl/Dextrose 360 mg in 200 mls @ 16.667 mls/hr 07/15/19 01:30 05:24 Nexterone 360 Mg/200 Ml Bag IVPB 16.667 mls/hr ASDIR JONH Administration Protocol 0.5 MG/MIN Sodium Chloride 1,000 mls @ 83 mls/hr 07/15/19 03:15 07/16/19 09:48 Normal Saline - IV Not Given ASDIR JONH Midazolam HCl 100 mg/ Sodium 100 mls @ 1 mls/hr 07/15/19 08:00 07/16/19 12:31 Chloride IVPB 4 mg/hr TITR JONH 4 mls/hr Administration Protocol 1 MG/HR Ceftriaxone Sodium 1 gm/ 50 mls @ 100 mls/hr 07/16/19 10:00 07/16/19 09:54 Dextrose IVPB 100 mls/hr DAILY JONH Administration Protocol Insulin Aspart 1 vial 07/16/19 07:00 07/16/19 11:32 Novolog Vial Sliding Scale - SQ Not Given TIDAC JONH Protocol Levetiracetam 500 mg 07/16/19 06:00 07/16/19 06:12 Keppra Injection - IVPB 500 mg 0600,1800 JONH Administration Mupirocin 1 applic 07/15/19 22:00 07/16/19 10:20 Bactroban Ointment (For Decolonization) - NS 07/20/19 21:59 1 applic BID JONH Administration Pantoprazole Sodium 40 mg 07/15/19 10:00 07/16/19 09:54 Protonix Iv IVPUSH 40 mg DAILY JONH Administration ASSESSMENT/PLAN: Critical prognosis; in ICU s/p arrest -S/P cardiac arrest (asystole, PEA) -Acute on chronic resp failure (COPD, CHF) -Diastolic CHF, likely acute on chronic -RADHIKA/likely [place] with noncompliance -CANDY on CKD -R/O anoxic brain injury -Hx CAD -Hx HTN -Hx HLD -Hx Hypothyroid -Shock liver Critical prognosis. Limited role of hospital medicine in management. Defer to ICU team and subspecialists. Reaching out to family, confirming home meds. Visit type - Emergency Visit Emergency Visit: Yes ED Registration Date: 07/15/19 Care time: The patient presented to the Emergency Department on the above date and was hospitalized for further evaluation of their emergent condition. - New Patient This patient is new to me today: Yes Date on this admission: 07/15/19 - Critical Care Critical Care patient: No
[2019-07-16] MEDS ORDERED: SUCCINYLCHOLINE CHLORIDE 200 MG/10 ML SYRINGE ONE (17:38)
[2019-07-16] MEDS ORDERED: NOREPINEPHRINE BITARTRATE 4 MG/4 ML ML IV ONE (17:44)
[2019-07-16] MEDS ORDERED: SUCCINYLCHOLINE CHLORIDE 200 MG/10 ML VIAL IVPUSH ONE (17:49)
[2019-07-16] MEDS: CHLORHEXIDINE GLUCONATE 4% CLEANSER FOR DECOLONIZATION TP SCH (21:24)
[2019-07-17] MEDS: NOREPINEPHRINE BITARTRATE 8,000 MCG in DEXTROSE 5%-WATER - 492 ML IV SCH ×2 (03:03→18:25)
[2019-07-17] MEDS: levETIRAcetam 500 MG/5 ML INJECTION VIAL IVPB SCH ×2 (05:50→17:55)
[2019-07-17] MEDS: SODIUM CHLORIDE 1,000 ML IV SCH ×3 (06:05→22:07)
[2019-07-17] MEDS: AMIODARONE IN DEXTROSE,ISO-OSM 360 MG/200 ML BAG IVPB SCH ×2 (06:05→10:07)
[2019-07-17] MEDS: INSULIN SLIDING SCALE (NOVOLOG) 1 VIAL SQ SCH ×3 (06:06→17:49)
[2019-07-17 07:55] LABS: HEMATOCRIT 24.3 % (35.4-49); HEMOGLOBIN 8.2 GM/dL (11.7-16.9); MCH 31.8 pg (25.7-33.7); MCHC 33.8 g/dl (32.0-35.9); MEAN PLT VOLUME 8.3 fl (7.5-11.1); PLATELET COUNT 186 K/MM3 (134-434); RBC 2.59 M/mm3 (4.00-5.60); RDW 15.4 % (11.9-15.9); WHITE BLOOD COUNT 6.2 K/mm3 (4.0-10.0)
[2019-07-17 08:00] LABS: ALBUMIN 2.3 g/dl (3.4-5.0); BILIRUBIN,TOTAL 0.6 mg/dL (0.2-1); BLOOD UREA NITROGEN 29.7 mg/dL (7-18); CALCIUM 8.1 mg/dL (8.5-10.1); CREATININE 0.9 mg/dL (0.55-1.3); POTASSIUM 3.7 mmol/L (3.5-5.1); TOT PROT 5.2 g/dl (6.4-8.2)
--- NOTE | 2019-07-17 09:02 | PN ---
Progress Note (short form) - Note Progress Note: Pulm/CCM Pt seen and examined in ICU 24HR: -loaded with keppra by neuro -on midaz gtt, still with some jerking mvt, no overt sz, possibly decorticate -s/p hypothermia, rewarming on going -GPC in blood 1/2 Current Medications Chlorhexidine Gluconate (Hibiclens For Decolonization -) 1 applic TP HS JONH Last Admin: 07/15/19 21:49 Dose: 1 applic Norepinephrine Bitartrate 8, (000 mcg/ Dextrose) 500 mls @ 18.75 mls/hr IV TITR JONH; Protocol Last Admin: 07/16/19 00:55 Dose: 9 mcg/min, 33.75 mls/hr Amiodarone HCl/Dextrose (Nexterone 360 Mg/200 Ml Bag) 360 mg in 200 mls @ 16.667 mls/hr IVPB ASDIR JONH; Protocol Last Admin: 07/16/19 05:24 Dose: 16.667 mls/hr Sodium Chloride (Normal Saline -) 1,000 mls @ 83 mls/hr IV ASDIR JONH Last Admin: 07/15/19 18:03 Dose: 83 mls/hr Midazolam HCl 100 mg/ Sodium (Chloride) 100 mls @ 1 mls/hr IVPB TITR JONH; Protocol Last Titration: 07/16/19 06:12 Dose: 3 mg/hr, 3 mls/hr Insulin Aspart (Novolog Vial Sliding Scale -) 1 vial SQ TIDAC JONH; Protocol Last Admin: 07/16/19 07:55 Dose: Not Given Levetiracetam (Keppra Injection -) 500 mg IVPB 0600,1800 [facility] Last Admin: 07/16/19 06:12 Dose: 500 mg Mupirocin (Bactroban Ointment (For Decolonization) -) 1 applic NS BID JONH Stop: 07/20/19 21:59 Last Admin: 07/15/19 21:46 Dose: 1 applic Pantoprazole Sodium (Protonix Iv) 40 mg IVPUSH DAILY JONH Last Admin: 07/15/19 11:00 Dose: 40 mg Vital Signs Temp 92.3 F L 07/16/19 07:50 Pulse 54 L 07/16/19 08:26 Resp 30 H 07/16/19 08:26 BP 135/53 L 07/16/19 07:50 Pulse Ox 95 07/16/19 08:26 Intake & Output 07/15/19 07/15/19 07/16/19 11:59 23:59 11:59 Intake Total 1273 949 Output Total 150 400 350 Balance -150 873 599 Weight 79.379 kg 86 kg 84.867 kg Intake: IV 1156 949 Normal Saline - 1,000 ml 1134 935 @ 1000 mls/hr IV ASDIR STA Rx#:[id number] Versed - 100 mg In Normal 22 14 Saline - 100 ml @ 1 MG/ HR 1 mls/hr IVPB TITR JONH Rx#:[id number] IVPB 117 Output: Urine 150 400 350 Shah 150 400 350 Other: Voiding Method Indwelling Catheter Indwelling Catheter Indwelling Catheter Bowel Movement No No Height 5 ft 8 in 5 ft 8 in Body Mass Index (BMI) 26.6 28.8 Weight Measurement Method Built in [facility] Weight Measurement Method Estimated by Staff RUBINA, BERT 07/17/19 07:00 07/17/19 07:00 PE: Gen: Intubated and sedated Neck: Yes: Supple Head: ecchymosis L>R orbit Respiratory: Yes: Intubated, Mechanically Ventilated, coarse bilat Gastrointestinal: Yes: Soft, Hypoactive Bowel Sounds Cardiovascular: Yes: S1S2, Bradycardia JVD: No Heart Sounds: Yes: S1, S2, reg Edema: No ext: distal mottling, 1+ DP pulses Neuro: pupils equal reactive, overbreathing vent, slight decort posturing to noxious stimuli S/P CP Arrest with likely ROBERT Previous history of PEA arrest Acute on chronic hypercapneic and hypoxemic respiratory failure Acute on chronic diastolic heart failure Anoxic encephalopathy, s/p therapeutic hypothermia COPD OSAS CAD Paroxysmal AF/flutter HPL CANDY AC Mode of vent Pressors to maintain MAP > 65 hold sedation now continue AE's, monitor for sz activity Panculture , blcxl with coag neg staff, stop vanco Strict I & O VTE prophylaxis BD TX PRN DNR , ongoing discussions with and family Requires ICU monitoring [place] ACNP
[2019-07-17] MEDS: MIDAZOLAM 100 MG in SODIUM CHLORIDE 100 ML IVPB SCH ×2 (09:47→18:23)
[2019-07-17] MEDS ORDERED: cefTRIAXone SODIUM 1 GM VIAL ONE (09:48)
[2019-07-17] MEDS ORDERED: DEXTROSE 5%-WATER - 50 ML IVPB ONE (09:49)
[2019-07-17] MEDS: CEFTRIAXONE 1 GM in DEXTROSE 5%-WATER - 50 ML IVPB SCH (09:50)
[2019-07-17] MEDS: PANTOPRAZOLE SODIUM 40 MG VIAL IVPUSH SCH (09:52)
[2019-07-17] MEDS: MUPIROCIN 2% TOPICAL OINTMENT FOR DECOLONIZATION NS SCH ×2 (09:54→22:00)
--- NOTE | 2019-07-17 10:04 | PN ---
Progress Note, Physician Chief Complaint: Events noted Remains intubated Sedated History of Present Illness: Patient seen in ICU. Chart was reviewed Mechanical ventilator Post cardiac arrest - Current Medication List Current Medications: Active Medications Chlorhexidine Gluconate (Hibiclens For Decolonization -) 1 applic TP HS JONH Last Admin: 07/16/19 21:24 Dose: 1 applic Norepinephrine Bitartrate 8, (000 mcg/ Dextrose) 500 mls @ 18.75 mls/hr IV TITR JONH; Protocol Last Titration: 07/17/19 09:55 Dose: 4 mcg/min, 15 mls/hr Amiodarone HCl/Dextrose (Nexterone 360 Mg/200 Ml Bag) 360 mg in 200 mls @ 16.667 mls/hr IVPB ASDIR JONH; Protocol Last Admin: 07/17/19 06:05 Dose: Not Given Sodium Chloride (Normal Saline -) 1,000 mls @ 83 mls/hr IV ASDIR JONH Last Admin: 07/17/19 09:41 Dose: 83 mls/hr Midazolam HCl 100 mg/ Sodium (Chloride) 100 mls @ 1 mls/hr IVPB TITR JONH; Protocol Last Admin: 07/17/19 09:47 Dose: Not Given Ceftriaxone Sodium 1 gm/ (Dextrose) 50 mls @ 100 mls/hr IVPB DAILY JONH; Protocol Last Admin: 07/17/19 09:50 Dose: 100 mls/hr Insulin Aspart (Novolog Vial Sliding Scale -) 1 vial SQ TIDAC JONH; Protocol Last Admin: 07/17/19 06:06 Dose: Not Given Levetiracetam (Keppra Injection -) 500 mg IVPB 0600,1800 JONH Last Admin: 07/17/19 05:50 Dose: 500 mg Mupirocin (Bactroban Ointment (For Decolonization) -) 1 applic NS BID JONH Stop: 07/20/19 21:59 Last Admin: 07/17/19 09:54 Dose: 1 applic Pantoprazole Sodium (Protonix Iv) 40 mg IVPUSH DAILY JONH Last Admin: 07/17/19 09:52 Dose: 40 mg - Objective Vital Signs: Vital Signs Temperature 96.3 F L 07/17/19 06:00 Pulse Rate 76 07/17/19 09:55 Respiratory Rate 18 07/17/19 08:38 Blood Pressure 166/55 L 07/17/19 09:55 O2 Sat by Pulse Oximetry (%) 100 07/17/19 08:21 Neck: Yes: Supple Cardiovascular: Yes: Regular Rate and Rhythm, Murmur (SM), S1, S2 Respiratory: Yes: Intubated, Mechanically Ventilated Gastrointestinal: Yes: Normal Bowel Sounds, Soft. No: Tenderness Edema: No Labs: CBC, BMP 07/17/19 07:00 07/17/19 07:00 INR, PTT INR 1.56 (0.83-1.09) H 07/16/19 05:15 Problem List - Problems (1) Cardiac arrest Code(s): I46.9 - CARDIAC ARREST, CAUSE UNSPECIFIED (2) Atrial flutter with controlled response Code(s): I48.92 - UNSPECIFIED ATRIAL FLUTTER (3) Coronary artery disease Code(s): I25.10 - ATHSCL HEART DISEASE OF [place] CORONARY ARTERY W/O ANG PCTRS Qualifiers: Coronary Disease-Associated Artery/Lesion type: [place] artery [place] vs. transplanted heart: [place] heart Associated angina: without angina Qualified Code(s): I25.10 - Atherosclerotic heart disease of [place] coronary artery without angina pectoris (4) Hyperlipidemia Code(s): E78.5 - HYPERLIPIDEMIA, UNSPECIFIED Qualifiers: Hyperlipidemia type: pure hypercholesterolemia Qualified Code(s): E78.00 - Pure hypercholesterolemia, unspecified; E78.0 - Pure hypercholesterolemia (5) Hypertensive cardiomyopathy Code(s): I11.9 - HYPERTENSIVE HEART DISEASE WITHOUT HEART FAILURE; I43 - CARDIOMYOPATHY IN DISEASES CLASSIFIED ELSEWHERE Qualifiers: Heart failure presence: with heart failure Qualified Code(s): I11.0 - Hypertensive heart disease with heart failure; I43 - Cardiomyopathy in diseases classified elsewhere (6) Hypertrophic cardiomyopathy Code(s): I42.2 - OTHER HYPERTROPHIC CARDIOMYOPATHY (7) RADHIKA (obstructive sleep apnea) Code(s): G47.33 - OBSTRUCTIVE SLEEP APNEA (ADULT) (PEDIATRIC) (8) Pulmonary hypertension assoc with unclear multi-factorial mechanisms Code(s): I27.29 - OTHER SECONDARY PULMONARY HYPERTENSION (9) S/P right coronary artery (RCA) stent placement Code(s): Z95.5 - PRESENCE OF CORONARY ANGIOPLASTY IMPLANT AND GRAFT (10) Toxic metabolic encephalopathy Code(s): G92 - TOXIC ENCEPHALOPATHY Assessment/Plan 1. Post asystolic arrest, previous h/o PEA arrest currently on mechanical ventilator 2. Acute on chronic hypercapneic, hypoxemic respiratory failure with toxic metabolic encephalopathy 3. Acute on chronic diastolic heart failure, moderate functional MS and moderate pulmonary HTN 4. COPD on home O2 5. OSAS noncompliant with CPAP 6. 1 vessel CAD history of RCA stent with h/o demand ischemia 7. Hypertensive heart disease/HOCM of elderly 8. Paroxysmal AF/flutter ([id number]) on Eliquis 9. Hyperlipidemia 10. Sick euthyroid syndrome 11. CANDY 12. Abnl LFTs 2/2 shock liver 13. Rule out anoxic encephalopathy PLAN: 1. Ventilator support 2. Wean pressors to maintain MAP>65 mmHg and Amiodarone gtt with monitor LFTs 3. Hold Bumex. Eplerenone, Toprol XL, Lipitor pending hemodynamic, renal function and LFT stability 4. Anticoagulation held until when able to be restarted. 5. Empiric IV PPI (GI prophylaxis) 6. Monitor Neuro status Meliton Garcia MD
[2019-07-17] MEDS ORDERED: PT OWN MED DRAWER 7, Y5N ONE (15:03)
--- NOTE | 2019-07-17 17:19 | PROC ---
Central Line Insertion Indication: Poor Venous Access, Sepsis, Vasopressor Risks and Benefits Explained: Yes Consent on Chart: Yes Central Line: Triple Lumen Catheter Anesthesia: 1% Lidocaine Sterile Technique: Yes Ultrasound Guided Assistance: Yes Position: Right Internal Jugular Post Insertion: Yes: Bilateral Breath Sounds, Bilateral Chest Expansion, Chest X-Ray Ordered Sterile Dressing Applied: Yes
[2019-07-17] MEDS: ACETAMINOPHEN 650 MG/20.3 ML ORAL SOLUTION (CUPS) GT PRN (17:22)
[2019-07-17] MEDS ORDERED: MIDAZOLAM IN 0.9 % SOD.CHLORID 1 MG/1 ML PLAST..BAG ONE (18:16)
--- NOTE | 2019-07-17 19:30 | PN ---
Physical Exam: SUBJECTIVE: Patient seen and examined. Intubated, taken off sedation this morning. OBJECTIVE: Vital Signs Temperature 99.3 F 07/18/19 06:00 Pulse Rate 81 07/18/19 08:04 Respiratory Rate 22 H 07/18/19 08:04 Blood Pressure 111/59 L 07/18/19 06:00 O2 Sat by Pulse Oximetry (%) 98 07/18/19 08:04 GENERAL: Intubated, sedated. Does not withdraw to pain. HEAD: Normal with no signs of trauma. EYES: L eye hematoma from fall, L pupil reactive but sluggish, R pupil moderately dilated and non-reactive to light LUNGS: COarse breath sound bilaterally HEART: Regular rate and rhythm, S1, S2 ABDOMEN: Soft, decreased bowel sounds, nondistended. EXTREMITIES: No LE edema, spontaneously moves UE no babinski appreciated on stroking soles, pedal pulses non-palpable NEURO: Intubated, sedated. Does not withdraw to pain.no cough or gag appreciated Laboratory Results - last 24 hr 07/17/19 07/17/19 07/17/19 06:04 07:00 07:00 WBC 6.2 RBC 2.59 L Hgb 8.2 L Hct 24.3 L MCV 94.0 MCH 31.8 MCHC 33.8 RDW 15.4 Plt Count 186 MPV 8.3 Sodium 134 L Potassium 3.7 Chloride 100 Carbon Dioxide 30 Anion Gap 5 L BUN 29.7 H Creatinine 0.9 Est GFR (CKD-EPI)AfAm 97.86 Est GFR (CKD-EPI)NonAf 84.43 POC Glucometer 97 Random Glucose 116 H Calcium 8.1 L Total Bilirubin 0.6 AST 144 H ALT 130 H Alkaline Phosphatase 135 H Total Protein 5.2 L Albumin 2.3 L 07/17/19 07/17/19 11:48 17:44 WBC RBC Hgb Hct MCV MCH MCHC RDW Plt Count MPV Sodium Potassium Chloride Carbon Dioxide Anion Gap BUN Creatinine Est GFR (CKD-EPI)AfAm Est GFR (CKD-EPI)NonAf POC Glucometer 98 145 Random Glucose Calcium Total Bilirubin AST ALT Alkaline Phosphatase Total Protein Albumin Active Medications Generic Name Dose Route Start Last Admin Trade Name Freq PRN Reason Stop Dose Admin Acetaminophen 650 mg 07/17/19 17:04 07/17/19 17:22 Tylenol Oral Solution - GT 650 mg Q6H PRN Administration FEVER Chlorhexidine Gluconate 15 ml 07/17/19 22:00 Peridex - MM BID JONH Norepinephrine Bitartrate 8, 500 mls @ 18.75 mls/hr 07/15/19 01:15 07/17/19 18:25 000 mcg/ Dextrose IV 4 mcg/min TITR JONH 15 mls/hr Administration Protocol 5 MCG/MIN Amiodarone HCl/Dextrose 360 mg in 200 mls @ 16.667 mls/hr 07/15/19 01:30 10:07 Nexterone 360 Mg/200 Ml Bag IVPB 16.667 mls/hr ASDIR JONH Administration Protocol 0.5 MG/MIN Sodium Chloride 1,000 mls @ 83 mls/hr 07/15/19 03:15 07/17/19 09:41 Normal Saline - IV 83 mls/hr ASDIR JONH Administration Midazolam HCl 100 mg/ Sodium 100 mls @ 1 mls/hr 07/15/19 08:00 07/17/19 18:23 Chloride IVPB 2 mg/hr TITR JONH 2 mls/hr Administration Protocol 1 MG/HR Ceftriaxone Sodium 1 gm/ 50 mls @ 100 mls/hr 07/16/19 10:00 07/17/19 09:50 Dextrose IVPB 100 mls/hr DAILY JONH Administration Protocol Insulin Aspart 1 vial 07/16/19 07:00 07/17/19 17:49 Novolog Vial Sliding Scale - SQ Not Given TIDAC JONH Protocol Levetiracetam 500 mg 07/16/19 06:00 07/17/19 17:55 Keppra Injection - IVPB 500 mg 0600,1800 JONH Administration Mupirocin 1 applic 07/15/19 22:00 07/17/19 09:54 Bactroban Ointment (For Decolonization) - NS 07/20/19 21:59 1 applic BID JONH Administration Pantoprazole Sodium 40 mg 07/15/19 10:00 07/17/19 09:52 Protonix Iv IVPUSH 40 mg DAILY JONH Administration ASSESSMENT/PLAN: 74 y.o. M PMH prior cardiac arrest 11/2018, a-flutter on eliquis, COPD on 4L home o2, pulm HTN, RADHIKA, HFpEF, HTN, HLD, CAD s/p RCA stent, medication noncompliance presenting for cardiac arrest. #s/p Cardiac arrest -s/p targeted temperature management -on pressors to maintain MAP >65 -AC mode of vent -Blood cultures growing Staph coag neg -repeat blood cultures pending -On Ceftriaxone 1 g daily -IVF -I&O #Anoxic encephalopathy -Neuro consulted. Recommendations appreciated -Load Levetircetam 1000 mg IV over 1 hr and observe the spontaneous arm movements. -Then continue levetiracetam 500 mg q 12 hrs. -Can also increase midazolam drip if seizures continue. #Hx a-flutter -holding eliquis in setting of acute blood loss -on amiodarone drip #Anemia #CANDY -now resolved #Transaminitis -likely shock liver -LFTs trending down -continue to monitor #Hyperglycemia -no hx of diabetes -continue BGMs -Insulin sliding scale implemented #FEN -IV NS @83cc/hr -routine bmp monitoring -NPO #PPX -DVT: SCDs -GI: protonix 40mg IV daily #Dispo -ICU -DNR Visit type - Emergency Visit Emergency Visit: Yes ED Registration Date: 07/15/19 Care time: The patient presented to the Emergency Department on the above date and was hospitalized for further evaluation of their emergent condition. - New Patient This patient is new to me today: Yes Date on this admission: 07/17/19 - Critical Care Critical Care patient: Yes Total Critical Care Time (in minutes): 35 Critical Care Statement: The care of this patient involved high complexity decision making to prevent further life threatening deterioration of the patient 's condition and/or to evaluate & treat vital organ system(s) failure or risk of failure. ATTENDING PHYSICIAN STATEMENT I saw and evaluated the patient. I reviewed the resident's note and discussed the case with the resident. I agree with the resident's findings and plan as documented. SUBJECTIVE: OBJECTIVE: ASSESSMENT AND PLAN:
[2019-07-17] MEDS: CHLORHEXIDINE GLUCONATE 0.12% 15ML CUP MM SCH (22:00)
[2019-07-18] MEDS: AMIODARONE IN DEXTROSE,ISO-OSM 360 MG/200 ML BAG IVPB SCH ×2 (03:39→16:22)
[2019-07-18] MEDS ORDERED: CEFTRIAXONE 1,000 MG in DEXTROSE 5%-WATER - 50 ML IVPB ONE (05:33)
[2019-07-18] MEDS: HEPARIN NA (PORCINE) 5,000 UNITS/ML 1ML VIAL SQ SCH ×3 (06:07→22:16)
[2019-07-18] MEDS: levETIRAcetam 500 MG/5 ML INJECTION VIAL IVPB SCH ×2 (06:07→18:00)
[2019-07-18] MEDS: INSULIN SLIDING SCALE (NOVOLOG) 1 VIAL SQ SCH ×3 (06:11→18:14)
[2019-07-18 07:15] LABS: BASO % 0.5 % (0-2.0); EOS % 1.6 % (0-4.5); HEMATOCRIT 23.5 % (35.4-49); HEMOGLOBIN 7.8 GM/dL (11.7-16.9); LYMPH % 5.9 % (8-40); MCH 31.6 pg (25.7-33.7); MCHC 33.3 g/dl (32.0-35.9); MEAN CELL VOLUME 94.9 fl (80-96); MEAN PLT VOLUME 8.1 fl (7.5-11.1); MONO % 8.3 % (3.8-10.2); NEUT % 83.7 % (42.8-82.8); PLATELET COUNT 192 K/MM3 (134-434); RBC 2.48 M/mm3 (4.00-5.60); RDW 15.7 % (11.9-15.9); WHITE BLOOD COUNT 5.6 K/mm3 (4.0-10.0)
[2019-07-18 07:42] LABS: ALBUMIN 2.1 g/dl (3.4-5.0); BILIRUBIN,TOTAL 0.4 mg/dL (0.2-1); CALCIUM 7.8 mg/dL (8.5-10.1); CREATININE 0.9 mg/dL (0.55-1.3); MAGNESIUM 2.3 mg/dL (1.8-2.4); POTASSIUM 3.8 mmol/L (3.5-5.1); TOT PROT 5.1 g/dl (6.4-8.2)
[2019-07-18] MEDS: MIDAZOLAM 100 MG in SODIUM CHLORIDE 100 ML IVPB SCH (08:30)
--- NOTE | 2019-07-18 08:54 | CONSULT ---
Consult - text type - Consultation Consultation Note: Neurology CHIEF COMPLAINT: cardiac arrest PCP: dr. rodriguez HISTORY OF PRESENT ILLNESS: 74 y.o. M PMH prior cardiac arrest 11/2018, COPD on 4L home o2, a-flutter, pulm HTN, RADHIKA, HFpEF, HTN, HLD, CAD s/p RCA stent, medication noncompliance presented for cardiac arrest. According to , present at bedside, the patient was found down at home in a small pool of blood. is a doctor, noted the patient did not have a pulse and called EMS. EMS arrived within 10 mins and began resuscitative efforts w/ TRACY system but could not intubate in the field. On arrival to patient was in asystole, then PEA; patient received a total of 5 pushes epi, 1 x bicarb, ROSC achieved. Patient was hypotensive in ED, fem line placed, levo & amio gtt initiated. Intubated in ED. Spoke with patient's regarding future resuscitative efforts, now signed DNR paperwork , in chart. Head CT reviewed and showed no acute pathology. Neurology consulted due to concern regarding abnormal movements and possible decorticate positioning. Appreciate initial evaluation by Dr. Moreno, note reviewed. Patient remains on Keppra 500mg twice daily. During my evaluation, patient does demonstrate brainstem reflexes including pupillary response and per nurse is overbreathing the vent, on nailbed pressure movement is more consistent with withdrawal to painful stimuli, no abnormal movements noted during my evaluation. Discussed case with the resident and recommended repeat noncontrast head CT to evaluate for evidence of anoxic brain injury. Recent Travel: no PAST MEDICAL HISTORY: as per hpi Family History: HTN Social History: Smoking: quit 25 yrs ago Alcohol: social Drugs: no REVIEW OF SYSTEMS CONSTITUTIONAL: Absent: fever, chills, diaphoresis, + generalized weakness, malaise HEENT: Absent: rhinorrhea, nasal congestion, throat pain, throat swelling, difficulty swallowing, mouth swelling, ear pain, eye pain, visual changes CARDIOVASCULAR: Absent: chest pain, syncope, palpitations, irregular heart rate, lightheadedness , peripheral edema RESPIRATORY: Absent: cough, shortness of breath, dyspnea with exertion, orthopnea, wheezing, stridor, hemoptysis GASTROINTESTINAL: Absent: abdominal pain, abdominal distension, nausea GENITOURINARY: Absent: dysuria, frequency, urgency, MUSCULOSKELETAL: Absent: myalgia, SKIN: Absent: rash, itching, pallor HEMATOLOGIC/IMMUNOLOGIC: Absent: easy bleeding, easy bruising, lymphadenopathy, frequent infections ENDOCRINE: Absent: unexplained weight gain, unexplained weight loss, heat intolerance, cold intolerance NEUROLOGIC: Absent: headache, focal weakness or paresthesias, dizziness, seizure, PSYCHIATRIC: Absent: anxiety, depression, suicidal or homicidal ideation, hallucinations. Allergies No Known Allergies Allergy (Verified 05/29/19 11:12) HOME MEDICATIONS: Home Medications Medication Instructions Recorded Sertraline HCl [Zoloft] 100 mg PO DAILY 01/09/12 Albuterol Sulfate Inhaler - 1 - 2 puff IH PRN PRN MDD Q4-6 12/15/18 [Ventolin HFA Inhaler -] hours Atorvastatin Ca [Lipitor] 40 mg PO HS 12/15/18 Eplerenone 25 mg PO DAILY 12/15/18 Ezetimibe 10 mg PO DAILY 12/15/18 Lamotrigine [Lamictal] 25 mg PO DAILY 12/15/18 Metoprolol Succinate [Toprol Xl] 12.5 mg PO BID 12/15/18 Ranolazine [Ranexa] 1,000 mg PO BID 12/15/18 Fluticasone/Vilanterol [Breo 1 puff IN DAILY 12/16/18 Ellipta 200-25 Mcg INH] Amiodarone HCl 200 mg PO DAILY 05/29/19 Apixaban [Eliquis] 5 mg PO BID 05/29/19 Bumetanide [Bumex -] 1 mg PO BID 05/29/19 Active Medications Acetaminophen (Tylenol Oral Solution -) 650 mg GT Q6H PRN PRN Reason: FEVER Last Admin: 07/17/19 17:22 Dose: 650 mg Chlorhexidine Gluconate (Peridex -) 15 ml MM BID JONH Last Admin: 07/17/19 22:00 Dose: 15 ml Heparin Sodium (Porcine) (Heparin -) 5,000 unit SQ TID JONH Last Admin: 07/18/19 06:07 Dose: 5,000 unit Norepinephrine Bitartrate 8, (000 mcg/ Dextrose) 500 mls @ 18.75 mls/hr IV TITR JONH; Protocol Last Admin: 07/17/19 18:25 Dose: 4 mcg/min, 15 mls/hr Amiodarone HCl/Dextrose (Nexterone 360 Mg/200 Ml Bag) 360 mg in 200 mls @ 16.667 mls/hr IVPB ASDIR JONH; Protocol Last Admin: 07/18/19 03:39 Dose: 16.667 mls/hr Sodium Chloride (Normal Saline -) 1,000 mls @ 83 mls/hr IV ASDIR JONH Last Admin: 07/17/19 22:07 Dose: 83 mls/hr Midazolam HCl 100 mg/ Sodium (Chloride) 100 mls @ 1 mls/hr IVPB TITR JONH; Protocol Last Titration: 07/18/19 08:30 Dose: 0 mg/hr, 0 mls/hr Ceftriaxone Sodium 1 gm/ (Dextrose) 50 mls @ 100 mls/hr IVPB DAILY JONH; Protocol Last Admin: 07/17/19 09:50 Dose: 100 mls/hr Insulin Aspart (Novolog Vial Sliding Scale -) 1 vial SQ TIDAC JONH; Protocol Last Admin: 07/18/19 06:11 Dose: Not Given Levetiracetam (Keppra Injection -) 500 mg IVPB 0600,1800 JONH Last Admin: 07/18/19 06:07 Dose: 500 mg Mupirocin (Bactroban Ointment (For Decolonization) -) 1 applic NS BID JONH Stop: 07/20/19 21:59 Last Admin: 07/17/19 22:00 Dose: 1 applic Pantoprazole Sodium (Protonix Iv) 40 mg IVPUSH DAILY JONH Last Admin: 07/17/19 09:52 Dose: 40 mg PHYSICAL EXAMINATION Vital Signs Period Temp Pulse Resp BP Sys/Govea Pulse Ox Last 24 Hr 97.4 F-99.8 F 71-88 16-32 101-166/46-60 98-100 GENERAL: intubated HEENT: Pupils ~2mm,rresponsive LUNGS: + vent sounds b/l HEART: RRR S1S2 no murmurs ABDOMEN: Soft NTND +BS. R fem line in place EXTREMITIES: 1+ radial & DP pulses palpated b/l. Left IO line in place. No peripheral edema. NEUROLOGICAL: Not arousable, pupils responsive to light with constriction equal and symmetric, response to painful stimuli,, no abnormal movements noted CBCD WBC 5.6 K/mm3 (4.0-10.0) 07/18/19 06:28 RBC 2.48 M/mm3 (4.00-5.60) L 07/18/19 06:28 Hgb 7.8 GM/dL (11.7-16.9) L 07/18/19 06:28 Hct 23.5 % (35.4-49) L 07/18/19 06:28 MCV 94.9 fl (80-96) 07/18/19 06:28 MCHC 33.3 g/dl (32.0-35.9) 07/18/19 06:28 RDW 15.7 % (11.9-15.9) 07/18/19 06:28 Plt Count 192 K/MM3 (134-434) 07/18/19 06:28 MPV 8.1 fl (7.5-11.1) 07/18/19 06:28 CMP Sodium 135 mmol/L (136-145) L 07/18/19 06:28 Potassium 3.8 mmol/L (3.5-5.1) 07/18/19 06:28 Chloride 103 mmol/L (98-107) 07/18/19 06:28 Carbon Dioxide 28 mmol/L (21-32) 07/18/19 06:28 Anion Gap 4 MMOL/L (8-16) L 07/18/19 06:28 BUN 25.0 mg/dL (7-18) H 07/18/19 06:28 Creatinine 0.9 mg/dL (0.55-1.3) 07/18/19 06:28 Random Glucose 104 mg/dL (74-106) 07/18/19 06:28 Calcium 7.8 mg/dL (8.5-10.1) L 07/18/19 06:28 Total Bilirubin 0.4 mg/dL (0.2-1) 07/18/19 06:28 AST 120 U/L (15-37) H 07/18/19 06:28 ALT 86 U/L (13-61) H 07/18/19 06:28 Alkaline Phosphatase 115 U/L (45-117) 07/18/19 06:28 Total Protein 5.1 g/dl (6.4-8.2) L 07/18/19 06:28 Albumin 2.1 g/dl (3.4-5.0) L 07/18/19 06:28 CARDIAC ENZYMES Creatine Kinase 363 U/L (26-308) H 07/16/19 05:15 Troponin I < 0.02 ng/ml (0.00-0.05) 07/16/19 05:15 ASSESSMENT/PLAN: 74 y.o. M PMH prior cardiac arrest 11/2018, COPD on 4L home o2, a-flutter, pulm HTN, RADHIKA, HFpEF, HTN, HLD, CAD s/p RCA stent, medication noncompliance presented for cardiac arrest. According to , present at bedside, the patient was found down at home in a small pool of blood. is a doctor, noted the patient did not have a pulse and called EMS. EMS arrived within 10 mins and began resuscitative efforts w/ TRACY system but could not intubate in the field. On arrival to patient was in asystole, then PEA; patient received a total of 5 pushes epi, 1 x bicarb, ROSC achieved. Patient was hypotensive in ED, fem line placed, levo & amio gtt initiated. Intubated in ED. Spoke with patient's regarding future resuscitative efforts, now signed DNR paperwork , in chart. Head CT reviewed and showed no acute pathology. Neurology consulted due to concern regarding abnormal movements and possible decorticate positioning. Appreciate initial evaluation by Dr. Moreno, note reviewed. Patient remains on Keppra 500mg twice daily. During my evaluation, patient does demonstrate brainstem reflexes including pupillary response and per nurse is overbreathing the vent, on nailbed pressure movement is more consistent with withdrawal to painful stimuli, no abnormal movements noted during my evaluation. Discussed case with the resident and recommended repeat noncontrast head CT to evaluate for evidence of anoxic brain injury. Wean went as able, continued close monitoring in ICU. Neuro checks should be continued. Monitor cardiac status, remains on pressors. Critical care time 35 mins.
[2019-07-18] MEDS: SODIUM CHLORIDE 1,000 ML IV SCH (09:33)
--- NOTE | 2019-07-18 09:41 | PN ---
Progress Note, Physician Chief Complaint: Events noted Remains intubated History of Present Illness: Patient seen in ICU. Chart was reviewed Mechanical ventilator Post cardiac arrest - Current Medication List Current Medications: Active Medications Acetaminophen (Tylenol Oral Solution -) 650 mg GT Q6H PRN PRN Reason: FEVER Last Admin: 07/17/19 17:22 Dose: 650 mg Chlorhexidine Gluconate (Peridex -) 15 ml MM BID JONH Last Admin: 07/17/19 22:00 Dose: 15 ml Heparin Sodium (Porcine) (Heparin -) 5,000 unit SQ TID JONH Last Admin: 07/18/19 06:07 Dose: 5,000 unit Norepinephrine Bitartrate 8, (000 mcg/ Dextrose) 500 mls @ 18.75 mls/hr IV TITR JONH; Protocol Last Admin: 07/17/19 18:25 Dose: 4 mcg/min, 15 mls/hr Amiodarone HCl/Dextrose (Nexterone 360 Mg/200 Ml Bag) 360 mg in 200 mls @ 16.667 mls/hr IVPB ASDIR JONH; Protocol Last Admin: 07/18/19 03:39 Dose: 16.667 mls/hr Sodium Chloride (Normal Saline -) 1,000 mls @ 83 mls/hr IV ASDIR JONH Last Admin: 07/18/19 09:33 Dose: 83 mls/hr Midazolam HCl 100 mg/ Sodium (Chloride) 100 mls @ 1 mls/hr IVPB TITR JONH; Protocol Last Titration: 07/18/19 08:30 Dose: 0 mg/hr, 0 mls/hr Ceftriaxone Sodium 1 gm/ (Dextrose) 50 mls @ 100 mls/hr IVPB DAILY JONH; Protocol Last Admin: 07/17/19 09:50 Dose: 100 mls/hr Insulin Aspart (Novolog Vial Sliding Scale -) 1 vial SQ TIDAC JONH; Protocol Last Admin: 07/18/19 06:11 Dose: Not Given Levetiracetam (Keppra Injection -) 500 mg IVPB 0600,1800 JONH Last Admin: 07/18/19 06:07 Dose: 500 mg Mupirocin (Bactroban Ointment (For Decolonization) -) 1 applic NS BID JONH Stop: 07/20/19 21:59 Last Admin: 07/17/19 22:00 Dose: 1 applic Pantoprazole Sodium (Protonix Iv) 40 mg IVPUSH DAILY JONH Last Admin: 07/17/19 09:52 Dose: 40 mg - Objective Vital Signs: Vital Signs Temperature 99.2 F 07/18/19 09:00 Pulse Rate 76 07/18/19 09:00 Respiratory Rate 18 07/18/19 09:00 Blood Pressure 117/53 L 07/18/19 09:00 O2 Sat by Pulse Oximetry (%) 98 07/18/19 08:04 Cardiovascular: Yes: Regular Rate and Rhythm, Murmur (SM), S1, S2 Respiratory: Yes: Intubated, Mechanically Ventilated Gastrointestinal: Yes: Normal Bowel Sounds, Soft. No: Tenderness Edema: Yes Edema: LLE: Trace, RLE: Trace Labs: CBC, BMP 07/18/19 06:28 07/18/19 06:28 INR, PTT INR 1.56 (0.83-1.09) H 07/16/19 05:15 Problem List - Problems (1) Cardiac arrest Code(s): I46.9 - CARDIAC ARREST, CAUSE UNSPECIFIED (2) Atrial flutter with controlled response Code(s): I48.92 - UNSPECIFIED ATRIAL FLUTTER (3) Coronary artery disease Code(s): I25.10 - ATHSCL HEART DISEASE OF [place] CORONARY ARTERY W/O ANG PCTRS Qualifiers: Qualified Code(s): I25.10 - Atherosclerotic heart disease of [place] coronary artery without angina pectoris (4) Hyperlipidemia Code(s): E78.5 - HYPERLIPIDEMIA, UNSPECIFIED Qualifiers: Qualified Code(s): E78.00 - Pure hypercholesterolemia, unspecified; E78.0 - Pure hypercholesterolemia (5) Hypertensive cardiomyopathy Code(s): I11.9 - HYPERTENSIVE HEART DISEASE WITHOUT HEART FAILURE; I43 - CARDIOMYOPATHY IN DISEASES CLASSIFIED ELSEWHERE Qualifiers: Qualified Code(s): I11.0 - Hypertensive heart disease with heart failure; I43 - Cardiomyopathy in diseases classified elsewhere (6) Hypertrophic cardiomyopathy Code(s): I42.2 - OTHER HYPERTROPHIC CARDIOMYOPATHY (7) RADHIKA (obstructive sleep apnea) Code(s): G47.33 - OBSTRUCTIVE SLEEP APNEA (ADULT) (PEDIATRIC) (8) Pulmonary hypertension assoc with unclear multi-factorial mechanisms Code(s): I27.29 - OTHER SECONDARY PULMONARY HYPERTENSION (9) S/P right coronary artery (RCA) stent placement Code(s): Z95.5 - PRESENCE OF CORONARY ANGIOPLASTY IMPLANT AND GRAFT (10) Toxic metabolic encephalopathy Code(s): G92 - TOXIC ENCEPHALOPATHY Assessment/Plan 1. Post asystolic arrest, previous h/o PEA arrest currently on mechanical ventilator 2. Acute on chronic hypercapneic, hypoxemic respiratory failure with toxic metabolic encephalopathy 3. Acute on chronic diastolic heart failure, moderate functional MS and moderate pulmonary HTN 4. COPD on home O2 5. OSAS noncompliant with CPAP 6. 1 vessel CAD history of RCA stent with h/o demand ischemia 7. Hypertensive heart disease/HOCM of elderly 8. Paroxysmal AF/flutter ([id number]) on Eliquis 9. Hyperlipidemia 10. Sick euthyroid syndrome 11. CANDY 12. Abnl LFTs 2/2 shock liver 13. Rule out anoxic encephalopathy PLAN: 1. Ventilator support 2. Wean pressors to maintain MAP>65 mmHg and Amiodarone gtt with monitor LFTs 3. Hold Bumex. Eplerenone, Toprol XL, Lipitor pending hemodynamic, renal function and LFT stability 4. Anticoagulation held until when able to be restarted. 5. Empiric IV PPI (GI prophylaxis). DVT prophylaxis 6. Monitor Neuro status. Neuro input noted [id number] supportive care Meliton Garcia MD
[2019-07-18] MEDS ORDERED: cefTRIAXone SODIUM 1 GM VIAL ONE (10:11)
[2019-07-18] MEDS ORDERED: DEXTROSE 5%-WATER - 50 ML IVPB ONE (10:11)
[2019-07-18] MEDS: NOREPINEPHRINE BITARTRATE 8,000 MCG in DEXTROSE 5%-WATER - 492 ML IV SCH (10:14)
[2019-07-18] MEDS: CEFTRIAXONE 1 GM in DEXTROSE 5%-WATER - 50 ML IVPB SCH (10:15)
[2019-07-18] MEDS: PANTOPRAZOLE SODIUM 40 MG VIAL IVPUSH SCH (10:15)
[2019-07-18] MEDS: CHLORHEXIDINE GLUCONATE 0.12% 15ML CUP MM SCH ×2 (10:16→22:16)
[2019-07-18] MEDS: MUPIROCIN 2% TOPICAL OINTMENT FOR DECOLONIZATION NS SCH ×2 (10:17→22:16)
--- NOTE | 2019-07-18 12:46 | PN ---
Teaching Attending Note Name of Resident: Luis Daniel Hayward ATTENDING PHYSICIAN STATEMENT I saw and evaluated the patient. I reviewed the resident's note and discussed the case with the resident. I agree with the resident's findings and plan as documented. SUBJECTIVE: Patient seen and examined in the ICU. Poorly responsive off sedation. Posturing. AC Mode of vent. CT Head: cerebral edema. Gen: Intubated, minimally responsive Neck: Yes: Supple Respiratory: Yes: Intubated, Mechanically Ventilated Gastrointestinal: Yes: Soft, Hypoactive Bowel Sounds Cardiovascular: Yes: S1S2 JVD: No Carotid Bruit: No Heart Sounds: Yes: S1, S2 Edema: No Laboratory Results - last 24 hr 07/17/19 07/18/19 07/18/19 17:44 06:10 06:28 WBC 5.6 RBC 2.48 L Hgb 7.8 L Hct 23.5 L MCV 94.9 MCH 31.6 MCHC 33.3 RDW 15.7 Plt Count 192 MPV 8.1 Absolute Neuts (auto) 4.7 Neutrophils % 83.7 H Lymphocytes % 5.9 L Monocytes % 8.3 Eosinophils % 1.6 D Basophils % 0.5 Nucleated RBC % 0 Sodium Potassium Chloride Carbon Dioxide Anion Gap BUN Creatinine Est GFR (CKD-EPI)AfAm Est GFR (CKD-EPI)NonAf POC Glucometer 145 98 Random Glucose Calcium Magnesium Total Bilirubin AST ALT Alkaline Phosphatase Total Protein Albumin 07/18/19 06:28 WBC RBC Hgb Hct MCV MCH MCHC RDW Plt Count MPV Absolute Neuts (auto) Neutrophils % Lymphocytes % Monocytes % Eosinophils % Basophils % Nucleated RBC % Sodium 135 L Potassium 3.8 Chloride 103 Carbon Dioxide 28 Anion Gap 4 L BUN 25.0 H Creatinine 0.9 Est GFR (CKD-EPI)AfAm 97.86 Est GFR (CKD-EPI)NonAf 84.43 POC Glucometer Random Glucose 104 Calcium 7.8 L Magnesium 2.3 Total Bilirubin 0.4 AST 120 H ALT 86 H Alkaline Phosphatase 115 Total Protein 5.1 L Albumin 2.1 L Assessment/Plan S/P CP Arrest with ROBERT Previous history of PEA arrest Acute on chronic hypercapneic and hypoxemic respiratory failure Acute on chronic diastolic heart failure COPD OSAS CAD Paroxysmal AF/flutter HPL CANDY AC Mode of vent ABX Follow CXR Strict I & O VTE prophylaxis BD TX PRN Monitor off systemic steroids DNR Requires ICU monitoring Family discussions for further GOC Dr Gaming Critical care time spent in reviewing chart, evaluating patient and formulating plan - 36 minutes.
--- NOTE | 2019-07-18 13:09 | PN ---
Physical Exam: SUBJECTIVE: Patient seen and examined O/N: low grade fever(Tmax 99) prompted cooling blanket Tends to have myoclonic jerks off sedation OBJECTIVE: Vital Signs Period Temp Pulse Resp BP Sys/Govea Pulse Ox Last 24 Hr 97.4 F-99.8 F 71-88 16-32 101-141/46-60 98-100 GENERAL: not following commands. Intubated, not sedated HEAD: NC. Left periorbital soft tissue swelling w/ ecchymosis, no active bleeding EYES: Pupils ~3mm, sluggish accomodation to light of Right pupil, sclera anicteric, conjunctiva clear. EARS, NOSE, THROAT: Ears normal, nares patent. NECK: supple without lymphadenopathy, JVD, or masses. LUNGS: Mild coarse BS bilaterally. Vent 500, 16, 5, 60% HEART: Regular rate and rhythm, normal S1 and S2 without murmur, rub or gallop. ABDOMEN: Soft, nontender, not distended, normoactive bowel sounds, no guarding, no rebound. MUSCULOSKELETAL: No bony deformities UPPER EXTREMITIES: 2+ pulses, cool, well-perfused. No cyanosis. No clubbing. LOWER EXTREMITIES: 2+ pulses, cool, well-perfused. No calf tenderness. No peripheral edema. NEUROLOGICAL: Not responding to questioning or sternal rub. BUE posturing with pinching SKIN: cool, dry, normal turgor, no rashes or lesions noted. Laboratory Results - last 24 hr 07/17/19 07/18/19 07/18/19 17:44 06:10 06:28 WBC 5.6 RBC 2.48 L Hgb 7.8 L Hct 23.5 L MCV 94.9 MCH 31.6 MCHC 33.3 RDW 15.7 Plt Count 192 MPV 8.1 Absolute Neuts (auto) 4.7 Neutrophils % 83.7 H Lymphocytes % 5.9 L Monocytes % 8.3 Eosinophils % 1.6 D Basophils % 0.5 Nucleated RBC % 0 Sodium Potassium Chloride Carbon Dioxide Anion Gap BUN Creatinine Est GFR (CKD-EPI)AfAm Est GFR (CKD-EPI)NonAf POC Glucometer 145 98 Random Glucose Calcium Magnesium Total Bilirubin AST ALT Alkaline Phosphatase Total Protein Albumin 07/18/19 06:28 WBC RBC Hgb Hct MCV MCH MCHC RDW Plt Count MPV Absolute Neuts (auto) Neutrophils % Lymphocytes % Monocytes % Eosinophils % Basophils % Nucleated RBC % Sodium 135 L Potassium 3.8 Chloride 103 Carbon Dioxide 28 Anion Gap 4 L BUN 25.0 H Creatinine 0.9 Est GFR (CKD-EPI)AfAm 97.86 Est GFR (CKD-EPI)NonAf 84.43 POC Glucometer Random Glucose 104 Calcium 7.8 L Magnesium 2.3 Total Bilirubin 0.4 AST 120 H ALT 86 H Alkaline Phosphatase 115 Total Protein 5.1 L Albumin 2.1 L Active Medications Generic Name Dose Route Start Last Admin Trade Name Freq PRN Reason Stop Dose Admin Acetaminophen 650 mg 07/17/19 17:04 07/17/19 17:22 Tylenol Oral Solution - GT 650 mg Q6H PRN Administration FEVER Chlorhexidine Gluconate 15 ml 07/17/19 22:00 07/18/19 10:16 Peridex - MM 15 ml BID JONH Administration Heparin Sodium (Porcine) 5,000 unit 07/18/19 06:00 07/18/19 06:07 Heparin - SQ 5,000 unit TID JONH Administration Norepinephrine Bitartrate 8, 500 mls @ 18.75 mls/hr 07/15/19 01:15 07/18/19 10:14 000 mcg/ Dextrose IV Not Given TITR JONH Protocol 5 MCG/MIN Amiodarone HCl/Dextrose 360 mg in 200 mls @ 16.667 mls/hr 07/15/19 01:30 03:39 Nexterone 360 Mg/200 Ml Bag IVPB 16.667 mls/hr ASDIR JONH Administration Protocol 0.5 MG/MIN Sodium Chloride 1,000 mls @ 83 mls/hr 07/15/19 03:15 07/18/19 09:33 Normal Saline - IV 83 mls/hr ASDIR JONH Administration Midazolam HCl 100 mg/ Sodium 100 mls @ 1 mls/hr 07/15/19 08:00 07/18/19 08:30 Chloride IVPB 0 mg/hr TITR JONH 0 mls/hr Titration Protocol 1 MG/HR Ceftriaxone Sodium 1 gm/ 50 mls @ 100 mls/hr 07/16/19 10:00 07/18/19 10:15 Dextrose IVPB 100 mls/hr DAILY JONH Administration Protocol Insulin Aspart 1 vial 07/16/19 07:00 07/18/19 06:11 Novolog Vial Sliding Scale - SQ Not Given TIDAC JONH Protocol Levetiracetam 500 mg 07/16/19 06:00 07/18/19 06:07 Keppra Injection - IVPB 500 mg 0600,1800 JONH Administration Mupirocin 1 applic 07/15/19 22:00 07/18/19 10:17 Bactroban Ointment (For Decolonization) - NS 07/20/19 21:59 1 applic BID JONH Administration Pantoprazole Sodium 40 mg 07/15/19 10:00 07/18/19 10:15 Protonix Iv IVPUSH 40 mg DAILY JONH Administration ASSESSMENT/PLAN: 73 yo M PMH COPD(4L O2), pulmonary HTN, RADHIKA, HFpEF(LVEF 60-65%, 12/20/18), moderate Aortic Stenosis, HTN, HLD, CAD s/p RCA DAVID (2003,2004,2018), pAFib( Eliquis), cardiac arrest([facility], November 2018) BIBA after being found down and pulseless in his home. Upon [facility]-ED arrival, pt was found to be in asystole then PEA. ED sp Epi x5, bicarb; achieved ROSC. Intubated. Getting Levophed gtt, amiodarone gtt, MgSO4. Admitted to ICU for [id number] care. NEURO # metabolic encephalopathy --possibly 2/2 in-field hypoxia > CTH(07/15/19): neg intracranial abn; no hemorrhage, no infarct, no fx. Left frontal/periorbital scalp injury > CTH(07/18/19): brain edema w/o herniation. Left forehead w/ scalp hematoma - not on sedation, pt unable to participate on neuro exam - Neuro(Eloina) consult: --rpt CTH to eval for anoxic brain injury --keppra --mannitol to reduce brain edema --fu PM electrolyte shifts RESPIR # Respiratory Failure --intubated # chronic COPD > VBG(07/15/19): 7.08/98.9/<49/28.0/46.7 > CXR(07/18/19): prominent mediastinum w/ enlarged heart. Left lung bas w/ infiltrate vs atelectasis - cw ventilator - daily sedation vacations CARDIO # Post-Cardiac Arrest(ROSC after epi x5, bicarb) # hypotension # chronic pAF # chronic dyslipidemia # CAD > troponin neg x1, fu repeats > BNP 1166 -Targeted Temperature Mgmt: goal Temp <36C for at least 24hs and to keep pt afeb --ice packs and cooling blanket PRN -Pressors: Levophed -Sedation: midazolam -amiodarone gtt -MAP goal >65 -HOLD home Eliquis, Bumex, Metoprolol, Amiodarone PO, Eplerenone, Ezetimibe, Atorvastatin GI # transaminitis --likely 2/2 to shock ---improving > 144/130 -->120/86 -OGT in place -NPO -trend LFTs RENAL # CANDY --2/2 to hypotension ---resolved # lactic acidemia ---resolved > lactic acid: 8.3 -->2.9 > Cr(baseline ~1.0): 1.6 --> 0.9 > UA: neg LE, neg nitrite -gentle IVF HEME/ID # macrocytic anemia -monitor H/H > UCX --pending > BCX(07/15/19): 1 of 2 bottle growing staphylococus Simulans > BCX(07/18/19) --pending - ID(Hernando) consult: --BCX likley contaminant --cw empiric ceftriaxone --start vancomycin FEN -NS @83 -NPO PPX -SQH LINES -ETT -OGT -SHERLEY -Pablo CODE STATUS: DNR Dispo: We will continue to follow the patient. Thank you for this consultative opportunity. Visit type - Emergency Visit Emergency Visit: No - New Patient This patient is new to me today: No - Critical Care Critical Care patient: Yes Total Critical Care Time (in minutes): 35 Critical Care Statement: The care of this patient involved high complexity decision making to prevent further life threatening deterioration of the patient 's condition and/or to evaluate & treat vital organ system(s) failure or risk of failure. ATTENDING PHYSICIAN STATEMENT I saw and evaluated the patient. I reviewed the resident's note and discussed the case with the resident. I agree with the resident's findings and plan as documented. SUBJECTIVE: OBJECTIVE: ASSESSMENT AND PLAN:
[2019-07-18] MEDS ORDERED: POTASSIUM CHLORIDE 20 MEQ PREMIX IVPB 100 ML IVPB SCH (13:15)
[2019-07-18] MEDS ORDERED: POTASSIUM CHLORIDE 20 MEQ PREMIX IVPB 100 ML IVPB ONE (13:30)
--- NOTE | 2019-07-18 15:17 | PN ---
Physical Exam: SUBJECTIVE: Patient seen and examined. Pt Intubated, sedated. Does not withdraw to pain. Unresponsive, currently on pressors. Afebrile. OBJECTIVE: Vital Signs Period Temp Pulse Resp BP Sys/Govea Pulse Ox Last 24 Hr 97.4 F-99.8 F 71-88 16-32 101-137/46-60 98-100 GENERAL: Intubated, sedated. Does not withdraw to pain. Unresponsive, currently on pressors HEAD: Normal with no signs of trauma. EYES: L eye hematoma from fall, L pupil reactive but sluggish, R pupil reactive but sluggish LUNGS: Coarse breath sound bilaterally, ET intact + ventilated HEART: Regular rate and rhythm, S1, S2 ABDOMEN: Soft, decreased bowel sounds, nondistended. EXTREMITIES: No LE edema, NEURO: Intubated, sedated. Does not withdraw to pain. no cough or gag appreciated Laboratory Results - last 24 hr 07/17/19 07/18/19 07/18/19 17:44 06:10 06:28 WBC 5.6 RBC 2.48 L Hgb 7.8 L Hct 23.5 L MCV 94.9 MCH 31.6 MCHC 33.3 RDW 15.7 Plt Count 192 MPV 8.1 Absolute Neuts (auto) 4.7 Neutrophils % 83.7 H Lymphocytes % 5.9 L Monocytes % 8.3 Eosinophils % 1.6 D Basophils % 0.5 Nucleated RBC % 0 Sodium Potassium Chloride Carbon Dioxide Anion Gap BUN Creatinine Est GFR (CKD-EPI)AfAm Est GFR (CKD-EPI)NonAf POC Glucometer 145 98 Random Glucose Calcium Magnesium Total Bilirubin AST ALT Alkaline Phosphatase Total Protein Albumin 07/18/19 07/18/19 06:28 14:51 WBC RBC Hgb Hct MCV MCH MCHC RDW Plt Count MPV Absolute Neuts (auto) Neutrophils % Lymphocytes % Monocytes % Eosinophils % Basophils % Nucleated RBC % Sodium 135 L Potassium 3.8 Chloride 103 Carbon Dioxide 28 Anion Gap 4 L BUN 25.0 H Creatinine 0.9 Est GFR (CKD-EPI)AfAm 97.86 Est GFR (CKD-EPI)NonAf 84.43 POC Glucometer 101 Random Glucose 104 Calcium 7.8 L Magnesium 2.3 Total Bilirubin 0.4 AST 120 H ALT 86 H Alkaline Phosphatase 115 Total Protein 5.1 L Albumin 2.1 L Active Medications Generic Name Dose Route Start Last Admin Trade Name Freq PRN Reason Stop Dose Admin Acetaminophen 650 mg 07/17/19 17:04 07/17/19 17:22 Tylenol Oral Solution - GT 650 mg Q6H PRN Administration FEVER Chlorhexidine Gluconate 15 ml 07/17/19 22:00 07/18/19 10:16 Peridex - MM 15 ml BID JONH Administration Heparin Sodium (Porcine) 5,000 unit 07/18/19 06:00 07/18/19 06:07 Heparin - SQ 5,000 unit TID JONH Administration Norepinephrine Bitartrate 8, 500 mls @ 18.75 mls/hr 07/15/19 01:15 07/18/19 10:14 000 mcg/ Dextrose IV Not Given TITR JONH Protocol 5 MCG/MIN Amiodarone HCl/Dextrose 360 mg in 200 mls @ 16.667 mls/hr 07/15/19 01:30 03:39 Nexterone 360 Mg/200 Ml Bag IVPB 16.667 mls/hr ASDIR JONH Administration Protocol 0.5 MG/MIN Sodium Chloride 1,000 mls @ 83 mls/hr 07/15/19 03:15 07/18/19 09:33 Normal Saline - IV 83 mls/hr ASDIR JONH Administration Midazolam HCl 100 mg/ Sodium 100 mls @ 1 mls/hr 07/15/19 08:00 07/18/19 08:30 Chloride IVPB 0 mg/hr TITR JONH 0 mls/hr Titration Protocol 1 MG/HR Ceftriaxone Sodium 1 gm/ 50 mls @ 100 mls/hr 07/16/19 10:00 07/18/19 10:15 Dextrose IVPB 100 mls/hr DAILY JONH Administration Protocol Insulin Aspart 1 vial 07/16/19 07:00 07/18/19 15:00 Novolog Vial Sliding Scale - SQ Not Given TIDAC JONH Protocol Levetiracetam 500 mg 07/16/19 06:00 07/18/19 06:07 Keppra Injection - IVPB 500 mg 0600,1800 JONH Administration Mupirocin 1 applic 07/15/19 22:00 07/18/19 10:17 Bactroban Ointment (For Decolonization) - NS 07/20/19 21:59 1 applic BID JONH Administration Pantoprazole Sodium 40 mg 07/15/19 10:00 07/18/19 10:15 Protonix Iv IVPUSH 40 mg DAILY JONH Administration ASSESSMENT/PLAN: 74 y/o M PMH cardiac arrest 11/2018, a-flutter on eliquis, COPD on 4L home o2, pulm HTN, RADHIKA, HFpEF, HTN, HLD, CAD s/p RCA stent, medication noncompliance presented s/p cardiac arrest #s/p Cardiac arrest s/p targeted temperature management on pressors to maintain MAP >65 AC mode of vent Blood cultures growing Staph coag neg repeat blood cultures pending Ceftriaxone 1 g IVF I&O Pt is DNR #Anoxic encephalopathy Then continue levetiracetam 500 mg q 12 hrs. Midazolam drip NE 8000mcg CT head for evaluation of anoxic Brain injury- brain edema w/out evidence of subfalcine or inferior herniation, no intracranial hemorrhage or gross focal acute infract, no shift of midline structure. Residual mild soft tissue swelling /hematoma of the scalp over the left forehead. #Hx a-flutter holding eliquis in setting of acute blood loss on amiodarone drip Hold Bumetanide, Eplerenone, Toprol XL, Lipitor pending renal function and LFT stability #Anemia cont to monitor #CANDY now resolved #Transaminitis likely shock liver LFTs trending down continue to monitor #Hyperglycemia now resolved continue BGMs Insulin sliding scale #FEN IV NS @83cc/hr monitor lytes NPO #DVT ppx SCDs #GI ppx Protonix 40mg IV daily #Dispo: Pending Neuro recom, Pending family decision on compassionate extubation , will f/u Visit type - Emergency Visit Emergency Visit: Yes ED Registration Date: 07/15/19 Care time: The patient presented to the Emergency Department on the above date and was hospitalized for further evaluation of their emergent condition. - New Patient This patient is new to me today: Yes Date on this admission: 07/18/19 - Critical Care Critical Care patient: No - Discharge Referral Referred to [facility] Med P.C.: No ATTENDING PHYSICIAN STATEMENT I saw and evaluated the patient. I reviewed the resident's note and discussed the case with the resident. I agree with the resident's findings and plan as documented. SUBJECTIVE: OBJECTIVE: ASSESSMENT AND PLAN:
--- NOTE | 2019-07-18 16:21 | PN ---
Progress Note (short form) - Note Progress Note: id consult dictated imp/reccd 74 yo man found unresponsive by his at home- no pulse, ems arrived , brought to ED, was asystolic , intubated and resuscitated in ED rosc estimated at 30 minutes now unresponsive intubated s/p arrest history of prior arrest in November 2018 bacteremia asked to see for bacteremia staph simulans one bottle, now second blood culture positive and repeat blood cultures pending suspect blood culture isolate is contaminant but would continue vancomycin until cultures are back continue rocephin for possible pneumonia ocverall prognosis is guarded Problem List - Problems (1) Cardiac arrest Code(s): I46.9 - CARDIAC ARREST, CAUSE UNSPECIFIED (2) Bacteremia Code(s): R78.81 - BACTEREMIA
[2019-07-18] MEDS ORDERED: PT OWN MED DRAWER 7, Y5N ONE (16:27)
[2019-07-18] MEDS ORDERED: MANNITOL 25% 12.5 GM/50 ML VIAL IVPB ONE (17:00)
--- NOTE | 2019-07-18 17:11 | CONS ---
DATE OF CONSULTATION: 07/18/2019 INFECTIOUS DISEASE CONSULTATION HISTORY OF PRESENT ILLNESS: This is a 73-year-old man who presents status post cardiac arrest. He was and the heard a thump. She found the patient on the floor. He was head down in a small pool of blood and unresponsive. EMS was summoned. He was brought to the emergency room. They were unable to intubate him in the field due to facial trauma. He was initially asystolic in the ER. He had an estimated ROSC time of 30 minutes. He was intubated and placed on a cooling protocol. This all happened on July 15. He was placed on a cooling blanket. He was started on pressors for blood pressure support and amiodarone. PAST MEDICAL HISTORY: Significant for coronary artery disease. He has a history of prior PEA arrest in November 2018. Per the chart, the patient was independent well prior to this. There was no history of any prior fevers or chills. His past medical history is notable for coronary artery disease. He had multiple stents. He has diastolic dysfunction with history of heart failure, hypertensive cardiovascular disease, hyperlipidemia, chronic hypercapnic respiratory failure. He is supposed to be on 4 L oxygen at home, obstructive sleep apnea, supposed to be on CPAP at home, pulmonary hypertension. He has a history of left lower extremity cellulitis, paroxysmal atrial fibrillation on Eliquis, the PEA arrest. SOCIAL HISTORY: He stopped smoking 25 years ago. Social alcohol. No substance use. He lives with his . ALLERGIES: No known drug allergies. MEDICATION: His medications at home include sertraline, Ranexa, metoprolol, Lamictal, fluticasone, Vilanterol inhaler, Zetia, , Bumex, Lipitor, Eliquis, amiodarone, and . He is followed by Dr. Nguyen as an outpatient for cardiology. REVIEW OF SYSTEMS: Not obtainable. PHYSICAL EXAMINATION: General: He is unresponsive on the ventilator. Vital Signs: Temperature is 99.7 rectally. He is intubated. His blood pressure is 116/50, respiratory rate 27, he is saturating 100% on 60%. He is no longer on any pressors, but he remains on amiodarone. HEENT: He has roving eye movements. He is orally intubated. Lungs: Diminished breath sounds at the bases. Heart: Regular rate and rhythm. Abdomen: Soft, nontender. Extremities: Warm without edema. Chest: His chest, his area of superficial skin breakdown probably at the site of his chest compressions. Skin: He has no sacral ulcers or skin breakdown or heel breakdown. LABORATORY: His white count is 5.6, on admission it was 4.4 and then 10.8. Hemoglobin is 7.8. BUN and creatinine are 25 and 0.9. LFTs have improved. AST is 120 today with ALT of 86, alkaline phosphatase of 115. His blood cultures, 1 bottle from July 15 is growing Staphylococcus simulans, a 2nd bottle has just turned positive today from a different set that has grown positive cocci in clusters, and urine culture is negative with repeat blood cultures sent this morning. Chest x-ray reveals congestion. Head CT reveals diffuse brain edema without any shift. IMPRESSION: In summary, this is a 74-year-old man admitted status post cardiac arrest, a history of prior arrest in November. I am asked to see him for bacteremia, gram positive, suspect contamination but would continue vancomycin until the other cultures are back. Would continue Rocephin for possible pneumonia. Overall prognosis is quite guarded given the prolonged ROSC time and his current mental status. FRANSISCO GALLAGHER M.D. [id number]
[2019-07-18] MEDS: ACETAMINOPHEN 650 MG/20.3 ML ORAL SOLUTION (CUPS) GT PRN (18:00)
[2019-07-18] MEDS: VANCOMYCIN 1 GRAM (PRE-DOCKED) 1,000 MG/250 ML BAG IVPB SCH (18:02)
--- NOTE | 2019-07-18 19:14 | PN ---
Teaching Attending Note Name of Resident: Taz Hernández ATTENDING PHYSICIAN STATEMENT I saw and evaluated the patient. I reviewed the resident's note and discussed the case with the resident. I agree with the resident's findings and plan as documented. SUBJECTIVE: Patient unresponsive on vent. OBJECTIVE: Vital Signs Period Temp Pulse Resp BP Sys/Govea Pulse Ox Last 24 Hr 97.4 F-99.7 F 71-82 16-32 101-127/46-59 98-100 GENERAL: Intubated, unresponsive HEART: S1S2, RRR LUNGS: Ventilated BS ABDOMEN: Soft, non-distended, hypoactive BS EXTREMITIES: No edema Laboratory Results - last 24 hr 07/18/19 07/18/19 07/18/19 06:10 06:28 06:28 WBC 5.6 RBC 2.48 L Hgb 7.8 L Hct 23.5 L MCV 94.9 MCH 31.6 MCHC 33.3 RDW 15.7 Plt Count 192 MPV 8.1 Absolute Neuts (auto) 4.7 Neutrophils % 83.7 H Lymphocytes % 5.9 L Monocytes % 8.3 Eosinophils % 1.6 D Basophils % 0.5 Nucleated RBC % 0 Sodium 135 L Potassium 3.8 Chloride 103 Carbon Dioxide 28 Anion Gap 4 L BUN 25.0 H Creatinine 0.9 Est GFR (CKD-EPI)AfAm 97.86 Est GFR (CKD-EPI)NonAf 84.43 POC Glucometer 98 Random Glucose 104 Calcium 7.8 L Magnesium 2.3 Total Bilirubin 0.4 AST 120 H ALT 86 H Alkaline Phosphatase 115 Total Protein 5.1 L Albumin 2.1 L 07/18/19 07/18/19 14:51 18:12 WBC RBC Hgb Hct MCV MCH MCHC RDW Plt Count MPV Absolute Neuts (auto) Neutrophils % Lymphocytes % Monocytes % Eosinophils % Basophils % Nucleated RBC % Sodium Potassium Chloride Carbon Dioxide Anion Gap BUN Creatinine Est GFR (CKD-EPI)AfAm Est GFR (CKD-EPI)NonAf POC Glucometer 101 108 Random Glucose Calcium Magnesium Total Bilirubin AST ALT Alkaline Phosphatase Total Protein Albumin Current Medications Generic Name Dose Route Start Last Admin Trade Name Freq PRN Reason Stop Dose Admin Acetaminophen 650 mg 07/17/19 17:04 07/18/19 18:00 Tylenol Oral Solution - GT 650 mg Q6H PRN Administration FEVER Chlorhexidine Gluconate 15 ml 07/17/19 22:00 07/18/19 10:16 Peridex - MM 15 ml BID JONH Administration Heparin Sodium (Porcine) 5,000 unit 07/18/19 06:00 07/18/19 15:05 Heparin - SQ 5,000 unit TID JONH Administration Norepinephrine Bitartrate 8, 500 mls @ 18.75 mls/hr 07/15/19 01:15 07/18/19 10:14 000 mcg/ Dextrose IV Not Given TITR JONH Protocol 5 MCG/MIN Amiodarone HCl/Dextrose 360 mg in 200 mls @ 16.667 mls/hr 07/15/19 01:30 16:22 Nexterone 360 Mg/200 Ml Bag IVPB 16.667 mls/hr ASDIR JONH Administration Protocol 0.5 MG/MIN Sodium Chloride 1,000 mls @ 83 mls/hr 07/15/19 03:15 07/18/19 09:33 Normal Saline - IV 83 mls/hr ASDIR JONH Administration Midazolam HCl 100 mg/ Sodium 100 mls @ 1 mls/hr 07/15/19 08:00 07/18/19 08:30 Chloride IVPB 0 mg/hr TITR JONH 0 mls/hr Titration Protocol 1 MG/HR Ceftriaxone Sodium 1 gm/ 50 mls @ 100 mls/hr 07/16/19 10:00 07/18/19 10:15 Dextrose IVPB 100 mls/hr DAILY JONH Administration Protocol Vancomycin HCl 1,000 mg in 250 mls @ 166.667 mls/hr 07/18/19 17:00 07/18/19 18:02 Vancomycin (Pre-Docked) IVPB 166.667 mls/hr Q12H JONH Administration Protocol Insulin Aspart 1 vial 07/16/19 07:00 07/18/19 18:14 Novolog Vial Sliding Scale - SQ Not Given TIDAC JONH Protocol Levetiracetam 500 mg 07/16/19 06:00 07/18/19 18:00 Keppra Injection - IVPB 500 mg 0600,1800 JONH Administration Mupirocin 1 applic 07/15/19 22:00 07/18/19 10:17 Bactroban Ointment (For Decolonization) - NS 07/20/19 21:59 1 applic BID JONH Administration Pantoprazole Sodium 40 mg 07/15/19 10:00 07/18/19 10:15 Protonix Iv IVPUSH 40 mg DAILY JONH Administration ASSESSMENT AND PLAN: This is a 74 year old man with a history of HTN, hyperlipidemia, cardiac arrest , CAD with stent, atrial flutter, chronic diastolic heart failure, chronic hypoxic respiratory failure, COPD, pulm HTN, RADHIKA who presented to the ED after a cardiac arrest at home. 1. s/p cardiac arrest 2. Acute on chronic hypoxic and hypercapneic respiratory failure - Vent management as per ICU team - Continue Levophed for BP support - Continue Versed for sedation 3. Possible pneumonia, Staph bacteremia - Continue ceftriaxone, vancomycin - Blood cultures growing Staph simulans in 1 bottle, pending organism in 1 bottle - Repeat blood cultures pending 4. Possible anoxic encephalopathy 5. Possible seizures - Continue Keppra - On Versed 6. Acute on chronic diastolic heart failure - Diuretics held secondary to hypotension 7. Paroxysmal atrial flutter - Continue amiodarone - Anticoagulation held secondary to anemia 8. HTN - Antihypertensives held secondary to hypotension 9. Hyperlipidemia 10. CAD 11. Anemia - Continue to monitor hgb 12. Acute kidney injury - Improved 13. Hepatic transaminitis - Secondary to hypotension, congestion - AST, ALT improving 14. COPD 15. Pulmonary HTN 16. RADHIKA 17. DVT prophylaxis - Continue heparin subq 18. Stress ulcer prophylaxis - Continue Protonix 19. Disposition - Family aware of grave prognosis, considering terminal extubation
[2019-07-18] MEDS ORDERED: ACETAMINOPHEN 1000 MG/100 ML VIAL (NON FORMULARY) IVPB ONE (19:40)
[2019-07-18 22:04] LABS: BLOOD UREA NITROGEN 19.6 mg/dL (7-18); CALCIUM 7.7 mg/dL (8.5-10.1); MAGNESIUM 2.3 mg/dL (1.8-2.4); PHOSPHOROUS 2.7 mg/dL (2.5-4.9); POTASSIUM 3.9 mmol/L (3.5-5.1)
[2019-07-19] MEDS: SODIUM CHLORIDE 1,000 ML IV SCH ×2 (01:39→05:26)
[2019-07-19] MEDS: AMIODARONE IN DEXTROSE,ISO-OSM 360 MG/200 ML BAG IVPB SCH ×2 (01:39→17:56)
[2019-07-19] MEDS: NOREPINEPHRINE BITARTRATE 8,000 MCG in DEXTROSE 5%-WATER - 492 ML IV SCH (01:41)
[2019-07-19] MEDS ORDERED: ACETAMINOPHEN 1000 MG/100 ML VIAL (NON FORMULARY) IVPB ONE ×2 (04:45→11:59)
[2019-07-19] MEDS: levETIRAcetam 500 MG/5 ML INJECTION VIAL IVPB SCH ×2 (06:08→17:56)
[2019-07-19] MEDS: VANCOMYCIN 1 GRAM (PRE-DOCKED) 1,000 MG/250 ML BAG IVPB SCH (06:08)
[2019-07-19] MEDS: HEPARIN NA (PORCINE) 5,000 UNITS/ML 1ML VIAL SQ SCH ×3 (06:08→21:20)
[2019-07-19 06:14] LABS: ALLENS TEST POSITIVE
[2019-07-19 06:20] LABS: ARTERIAL BLD GAS O2 SATURATION 98.8 % (95-98); ARTERIAL BLOOD GAS BASE EXCESS 1.3 meq/l (-2-2); ARTERIAL BLOOD GAS PO2 138 mmHg (80-100); ARTERIAL BLOOD GAS pH 7.36 (7.35-7.45)
[2019-07-19] MEDS: INSULIN SLIDING SCALE (NOVOLOG) 1 VIAL SQ SCH ×3 (06:21→16:51)
--- NOTE | 2019-07-19 06:34 | PN ---
Progress Note (short form) - Note Progress Note: Chief Complaint: Events noted, notes reviewed, off of sedation remains unresponsive and intubated, on pressors and Amiodarone drip but no A/C History of Present Illness: Seen and examined in the ICU. Events noted, notes reviewed, off of sedation remains unresponsive and intubated, on pressors and Amiodarone drip but no A/C - Current Medication List Current Medications Acetaminophen (Tylenol Oral Solution -) 650 mg GT Q6H PRN PRN Reason: FEVER Last Admin: 07/18/19 18:00 Dose: 650 mg Chlorhexidine Gluconate (Peridex -) 15 ml MM BID JONH Last Admin: 07/18/19 22:16 Dose: 15 ml Heparin Sodium (Porcine) (Heparin -) 5,000 unit SQ TID JONH Last Admin: 07/19/19 06:08 Dose: 5,000 unit Norepinephrine Bitartrate 8, (000 mcg/ Dextrose) 500 mls @ 18.75 mls/hr IV TITR JONH; Protocol Last Titration: 07/19/19 06:22 Dose: 5 mcg/min, 18.75 mls/hr Amiodarone HCl/Dextrose (Nexterone 360 Mg/200 Ml Bag) 360 mg in 200 mls @ 16.667 mls/hr IVPB ASDIR JONH; Protocol Last Admin: 07/19/19 01:39 Dose: 16.667 mls/hr Sodium Chloride (Normal Saline -) 1,000 mls @ 83 mls/hr IV ASDIR JONH Last Admin: 07/19/19 05:26 Dose: Not Given Ceftriaxone Sodium 1 gm/ (Dextrose) 50 mls @ 100 mls/hr IVPB DAILY JONH; Protocol Last Admin: 07/18/19 10:15 Dose: 100 mls/hr Vancomycin HCl (Vancomycin (Pre-Docked)) 1,000 mg in 250 mls @ 166.667 mls/hr IVPB Q12H JONH; Protocol Last Admin: 07/19/19 06:08 Dose: 166.667 mls/hr Insulin Aspart (Novolog Vial Sliding Scale -) 1 vial SQ TIDAC JONH; Protocol Last Admin: 07/19/19 06:21 Dose: Not Given Levetiracetam (Keppra Injection -) 500 mg IVPB 0600,1800 JONH Last Admin: 07/19/19 06:08 Dose: 500 mg Mupirocin (Bactroban Ointment (For Decolonization) -) 1 applic NS BID JONH Stop: 07/20/19 21:59 Last Admin: 07/18/19 22:16 Dose: 1 applic Pantoprazole Sodium (Protonix Iv) 40 mg IVPUSH DAILY [facility] Last Admin: 07/18/19 10:15 Dose: 40 mg Review of Systems Unable to obtain - Objective Vital Signs: Last Vital Signs Temp Pulse Resp BP Pulse Ox 100.3 F H 74 24 H 126/51 L 100 07/19/19 05:18 07/19/19 05:18 07/19/19 05:18 07/19/19 05:18 07/18/19 21:29 Intake & Output 07/16/19 07/17/19 07/18/19 07/19/19 23:59 23:59 23:59 23:59 Intake Total 2257 2796.6 3580 1464 Output Total 791 248 0636 700 Balance 1632 2626.6 1530 764 Weight 187 lb 1.6 oz 185 lb 193 lb 11.2 oz 196 lb 3.2 oz Neck: Supple Negative JVD No Bruit Respiratory: Scattered Rhonchi Bilaterally Cardiovascular: S1 S2 Regular Rate Rhythm Gastrointestinal: Soft Benign Normal Bowel Sounds Ext: Edema Labs: CBC, BMP 07/19/19 05:55 07/19/19 05:55 Hepatic Panel Total Bilirubin 0.4 mg/dL (0.2-1) 07/19/19 05:55 AST 98 U/L (15-37) H 07/19/19 05:55 ALT 68 U/L (13-61) H 07/19/19 05:55 Alkaline Phosphatase 122 U/L (45-117) H 07/19/19 05:55 Albumin 2.0 g/dl (3.4-5.0) L 07/19/19 05:55 INR, PTT INR 1.56 (0.83-1.09) H 07/16/19 05:15 ABG Results ABG pH 7.36 (7.35-7.45) 07/19/19 06:00 ABG pCO2 at Pt Temp 48.0 mmHg (35-45) H 07/19/19 06:00 ABG pO2 at Pt Temp 138 mmHg (80-100) H 07/19/19 06:00 ABG HCO3 26.1 mmol/L (22-27) 07/19/19 06:00 ABG O2 Sat (Measured) 98.8 % (95-98) H 07/19/19 06:00 ABG O2 Content 10.7 % vol 07/19/19 06:00 ABG Base Excess 1.3 meq/l (-2-2) 07/19/19 06:00 Assessment/Plan ASSESSMENT: 1. Post asystolic cardiac arrest/prior history of PEA arrest- respiratory arrest currently on mechanical ventilator 2. Acute respiratory failure related to above- with probable toxic metabolic encephalopathy- highly suspected 3. CAD post PCI/stent/[employer] RCA with evidence of demand ischemia angina pectoris 4. Chronic class I-II NYHA classification diastolic heart failure with moderate to severe pulmonary HTN 5. Paroxysmal atrial fibrillation/paroxysmal atrial flutter [id number] score of 4 currently off of A/C was on on Eliquis therapy 6. Hypertrophic cardiomypathy of the elderly with no evidence of outflow tract obstruction 7. HTN 8. Hypercholesterolemia 9. Sick euthyroid syndrome 10. Advanced COPD on home O2 11. OSAS 12. Acute on chronic renal insufficiency 13. Abnormal LFT's/shock liver, resolving 14. Anemia PLAN: 1. Ventilator management as per the ICU team 2. Attempt to wean off pressors titrate to maintain MAP>65 mmHg 3. Continue Amiodarone drip but once oral intake switch to Amiodarone 200 mg daily 4. Resume Bumex and Eplerenone as need hemodynamics permitting 5. Resume B-Blockers, hemodynamics permitting 6. Recommend resumption of anticoagulation considering the above noted [id number] score of 4 unless it is absolutely contraindicated with close monitoring of Hg level maintaining Hg equal or > 8.0 7. Neurology F/U Nilton Nguyen M.D.
[2019-07-19 06:35] LABS: HEMATOCRIT 23.6 % (35.4-49); HEMOGLOBIN 7.8 GM/dL (11.7-16.9); MCH 31.8 pg (25.7-33.7); MCHC 33.3 g/dl (32.0-35.9); MEAN CELL VOLUME 95.4 fl (80-96); MEAN PLT VOLUME 7.7 fl (7.5-11.1); PLATELET COUNT 221 K/MM3 (134-434); RBC 2.47 M/mm3 (4.00-5.60); RDW 15.4 % (11.9-15.9)
[2019-07-19 06:44] LABS: BILIRUBIN,TOTAL 0.4 mg/dL (0.2-1); BLOOD UREA NITROGEN 20.1 mg/dL (7-18); CALCIUM 8.1 mg/dL (8.5-10.1); CREATININE 0.9 mg/dL (0.55-1.3); POTASSIUM 3.6 mmol/L (3.5-5.1); TOT PROT 5.4 g/dl (6.4-8.2)
--- NOTE | 2019-07-19 08:37 | PN ---
Progress Note (short form) - Note Progress Note: Neurology CHIEF COMPLAINT: cardiac arrest PCP: dr. rodriguez HISTORY OF PRESENT ILLNESS: 74 y.o. M PMH prior cardiac arrest 11/2018, COPD on 4L home o2, a-flutter, pulm HTN, RADHIKA, HFpEF, HTN, HLD, CAD s/p RCA stent, medication noncompliance presented for cardiac arrest. According to , present at bedside, the patient was found down at home in a small pool of blood. is a doctor, noted the patient did not have a pulse and called EMS. EMS arrived within 10 mins and began resuscitative efforts w/ TRACY system but could not intubate in the field. On arrival to patient was in asystole, then PEA; patient received a total of 5 pushes epi, 1 x bicarb, ROSC achieved. Patient was hypotensive in ED, fem line placed, levo & amio gtt initiated. Intubated in ED. Spoke with patient's regarding future resuscitative efforts, now signed DNR paperwork , in chart. Head CT completed and showed no acute pathology. Neurology consulted due to concern regarding abnormal movements and possible decorticate positioning. Appreciate initial evaluation by Dr. Moreno, note reviewed. Patient remains on Keppra 500mg twice daily. During my evaluation, not on sedation, patient does demonstrate brainstem reflexes including pupillary response and per nurse is overbreathing the vent, on nailbed pressure movement is more consistent with withdrawal to painful stimuli, no abnormal movements noted during my evaluation. Repeated Head CT reviewed and demonstrated brain edema w/o evidence of subfalcine or inferior herniation. No hemorrhage or gross focal acute infarct. Residual mild soft tissue swelling/hematoma of scalp over L. forehead. Mentioned to resident possibility of mannitol, ordered entered but then discontinued. Active Medications Acetaminophen (Tylenol Oral Solution -) 650 mg GT Q6H PRN PRN Reason: FEVER Last Admin: 07/18/19 18:00 Dose: 650 mg Chlorhexidine Gluconate (Peridex -) 15 ml MM BID [facility] Last Admin: 07/18/19 22:16 Dose: 15 ml Heparin Sodium (Porcine) (Heparin -) 5,000 unit SQ TID [facility] Last Admin: 07/19/19 06:08 Dose: 5,000 unit Norepinephrine Bitartrate 8, (000 mcg/ Dextrose) 500 mls @ 18.75 mls/hr IV TITR JONH; Protocol Last Titration: 07/19/19 06:22 Dose: 5 mcg/min, 18.75 mls/hr Amiodarone HCl/Dextrose (Nexterone 360 Mg/200 Ml Bag) 360 mg in 200 mls @ 16.667 mls/hr IVPB ASDIR JONH; Protocol Last Admin: 07/19/19 01:39 Dose: 16.667 mls/hr Sodium Chloride (Normal Saline -) 1,000 mls @ 83 mls/hr IV ASDIR JONH Last Admin: 07/19/19 05:26 Dose: Not Given Midazolam HCl 100 mg/ Sodium (Chloride) 100 mls @ 1 mls/hr IVPB TITR JONH; Protocol Last Titration: 07/18/19 08:30 Dose: 0 mg/hr, 0 mls/hr Ceftriaxone Sodium 1 gm/ (Dextrose) 50 mls @ 100 mls/hr IVPB DAILY JONH; Protocol Last Admin: 07/18/19 10:15 Dose: 100 mls/hr Vancomycin HCl (Vancomycin (Pre-Docked)) 1,000 mg in 250 mls @ 166.667 mls/hr IVPB Q12H JONH; Protocol Last Admin: 07/19/19 06:08 Dose: 166.667 mls/hr Insulin Aspart (Novolog Vial Sliding Scale -) 1 vial SQ TIDAC JONH; Protocol Last Admin: 07/19/19 06:21 Dose: Not Given Levetiracetam (Keppra Injection -) 500 mg IVPB 0600,1800 JONH Last Admin: 07/19/19 06:08 Dose: 500 mg Mupirocin (Bactroban Ointment (For Decolonization) -) 1 applic NS BID JONH Stop: 07/20/19 21:59 Last Admin: 07/18/19 22:16 Dose: 1 applic Pantoprazole Sodium (Protonix Iv) 40 mg IVPUSH DAILY JONH Last Admin: 07/18/19 10:15 Dose: 40 mg PHYSICAL EXAMINATION Vital Signs Period Temp Pulse Resp BP Sys/Govea Pulse Ox Last 24 Hr 98.7 F-100.5 F 71-80 16-29 96-129/42-53 100-100 GENERAL: intubated HEENT: Pupils ~2mm,rresponsive LUNGS: + vent sounds b/l HEART: RRR S1S2 no murmurs ABDOMEN: Soft NTND +BS. R fem line in place EXTREMITIES: 1+ radial & DP pulses palpated b/l. Left IO line in place. No peripheral edema. NEUROLOGICAL: Not arousable, pupils responsive to light with constriction equal and symmetric, response to painful stimuli,, no abnormal movements noted CBCD WBC 6.0 K/mm3 (4.0-10.0) 07/19/19 05:55 RBC 2.47 M/mm3 (4.00-5.60) L 07/19/19 05:55 Hgb 7.8 GM/dL (11.7-16.9) L 07/19/19 05:55 Hct 23.6 % (35.4-49) L 07/19/19 05:55 MCV 95.4 fl (80-96) 07/19/19 05:55 MCHC 33.3 g/dl (32.0-35.9) 07/19/19 05:55 RDW 15.4 % (11.9-15.9) 07/19/19 05:55 Plt Count 221 K/MM3 (134-434) 07/19/19 05:55 MPV 7.7 fl (7.5-11.1) 07/19/19 05:55 CMP Sodium 135 mmol/L (136-145) L 07/19/19 05:55 Potassium 3.6 mmol/L (3.5-5.1) 07/19/19 05:55 Chloride 103 mmol/L (98-107) 07/19/19 05:55 Carbon Dioxide 27 mmol/L (21-32) 07/19/19 05:55 Anion Gap 5 MMOL/L (8-16) L 07/19/19 05:55 BUN 20.1 mg/dL (7-18) H 07/19/19 05:55 Creatinine 0.9 mg/dL (0.55-1.3) 07/19/19 05:55 Random Glucose 115 mg/dL (74-106) H 07/19/19 05:55 Calcium 8.1 mg/dL (8.5-10.1) L 07/19/19 05:55 Total Bilirubin 0.4 mg/dL (0.2-1) 07/19/19 05:55 AST 98 U/L (15-37) H 07/19/19 05:55 ALT 68 U/L (13-61) H 07/19/19 05:55 Alkaline Phosphatase 122 U/L (45-117) H 07/19/19 05:55 Total Protein 5.4 g/dl (6.4-8.2) L 07/19/19 05:55 Albumin 2.0 g/dl (3.4-5.0) L 07/19/19 05:55 CARDIAC ENZYMES Creatine Kinase 363 U/L (26-308) H 07/16/19 05:15 Troponin I < 0.02 ng/ml (0.00-0.05) 07/16/19 05:15 ASSESSMENT/PLAN: 74 y.o. M PMH prior cardiac arrest 11/2018, COPD on 4L home o2, a-flutter, pulm HTN, RADHIKA, HFpEF, HTN, HLD, CAD s/p RCA stent, medication noncompliance presented for cardiac arrest. According to , present at bedside, the patient was found down at home in a small pool of blood. is a doctor, noted the patient did not have a pulse and called EMS. EMS arrived within 10 mins and began resuscitative efforts w/ TRACY system but could not intubate in the field. On arrival to patient was in asystole, then PEA; patient received a total of 5 pushes epi, 1 x bicarb, ROSC achieved. Patient was hypotensive in ED, fem line placed, levo & amio gtt initiated. Intubated in ED. Spoke with patient's regarding future resuscitative efforts, now signed DNR paperwork , in chart. Head CT reviewed and showed no acute pathology. Neurology consulted due to concern regarding abnormal movements and possible decorticate positioning. Appreciate initial evaluation by Dr. Moreno, note reviewed. Patient remains on Keppra 500mg twice daily. During my evaluation, not on sedation, patient does demonstrate brainstem reflexes including pupillary response and per nurse is overbreathing the vent, on nailbed pressure movement is more consistent with withdrawal to painful stimuli, no abnormal movements noted during my evaluation. Repeated Head CT reviewed and demonstrated brain edema w/o evidence of subfalcine or inferior herniation. No hemorrhage or gross focal acute infarct. Residual mild soft tissue swelling/hematoma of scalp over L. forehead. Mentioned to resident possibility of mannitol, ordered entered but then discontinued. Not on sedation but still not making spontaneous or purposeful movements at this time. Wean went if able, continued. Neurologically without significant improvement thus far. Continued close monitoring in ICU. Neuro checks should be continued. Monitor cardiac status, remains on pressors. Critical care time 35 mins.
[2019-07-19] MEDS: KCL 10 MEQ IVPB 10 MEQ/100 ML INFUS.BAG IVPB SCH ×3 (08:52→11:25)
[2019-07-19] MEDS: MIDAZOLAM 100 MG in SODIUM CHLORIDE 100 ML IVPB SCH (08:53)
[2019-07-19] MEDS ORDERED: cefTRIAXone SODIUM 1 GM VIAL ONE (09:19)
[2019-07-19] MEDS ORDERED: DEXTROSE 5%-WATER - 50 ML IVPB ONE (09:19)
[2019-07-19] MEDS: PANTOPRAZOLE SODIUM 40 MG VIAL IVPUSH SCH (09:21)
[2019-07-19] MEDS: CHLORHEXIDINE GLUCONATE 0.12% 15ML CUP MM SCH ×2 (09:21→21:20)
[2019-07-19] MEDS: CEFTRIAXONE 1 GM in DEXTROSE 5%-WATER - 50 ML IVPB SCH (09:21)
[2019-07-19] MEDS: MUPIROCIN 2% TOPICAL OINTMENT FOR DECOLONIZATION NS SCH ×2 (09:21→21:20)
[2019-07-19] MEDS ORDERED: MANNITOL 25% 12.5 GM/50 ML VIAL IVPB ONE (10:47)
[2019-07-19 10:51] LABS: MAGNESIUM 2.4 mg/dL (1.8-2.4); PHOSPHOROUS 2.5 mg/dL (2.5-4.9)
[2019-07-19] MEDS ORDERED: MANNITOL 25% 12.5 GM/50 ML VIAL IVPB SCH (11:14)
--- NOTE | 2019-07-19 11:21 | PN ---
Physical Exam: SUBJECTIVE: Patient seen and examined O/N: Tmax 100.3F, no cx done b/c recent BCX drawn -off sedation, not moving spontaneously OBJECTIVE: Vital Signs Period Temp Pulse Resp BP Sys/Govea Pulse Ox Last 24 Hr 98.7 F-100.8 F 71-80 16-28 96-132/42-53 100-100 GENERAL: not following commands. Intubated, not sedated HEAD: NC. Left periorbital soft tissue swelling w/ ecchymosis, no active bleeding EYES: Pupils ~3mm, sluggish accomodation to light of Right pupil, slow horizontal nystagmus, sclera anicteric, conjunctiva clear. EARS, NOSE, THROAT: Ears normal, nares patent. NECK: supple without lymphadenopathy, JVD, or masses. LUNGS: Mild coarse BS bilaterally. Vent 500, 16, 5, 50% HEART: Regular rate and rhythm, normal S1 and S2 without murmur, rub or gallop. ABDOMEN: Soft, nontender, not distended, normoactive bowel sounds, no guarding, no rebound. MUSCULOSKELETAL: No bony deformities UPPER EXTREMITIES: 2+ pulses, cool, well-perfused. No cyanosis. No clubbing. LOWER EXTREMITIES: 2+ pulses, cool, well-perfused. No calf tenderness. No peripheral edema. NEUROLOGICAL: Not responding to questioning or sternal rub. BUE posturing with pinching. Up-going toes with sharp stroking to plantar surfaces SKIN: cool, dry, normal turgor, no rashes or lesions noted. Laboratory Results - last 24 hr 07/18/19 07/18/19 07/18/19 14:51 18:12 21:00 WBC RBC Hgb Hct MCV MCH MCHC RDW Plt Count MPV Anticoagulation Therapy Puncture Site Patient Temperature ABG pH ABG pCO2 at Pt Temp ABG pO2 at Pt Temp ABG HCO3 ABG O2 Sat (Measured) ABG O2 Content ABG Base Excess Dante Test O2 Delivery Device Oxygen Flow Rate Vent Mode Vent Rate Mechanical Rate PEEP Pressure Support Vent Sodium 134 L Potassium 3.9 Chloride 101 Carbon Dioxide 29 Anion Gap 4 L BUN 19.6 H Creatinine 1.0 Est GFR (CKD-EPI)AfAm 86.15 Est GFR (CKD-EPI)NonAf 74.34 POC Glucometer 101 108 Random Glucose 127 H Calcium 7.7 L Phosphorus 2.7 Magnesium 2.3 Total Bilirubin AST ALT Alkaline Phosphatase Total Protein Albumin 07/19/19 07/19/19 07/19/19 05:55 05:55 06:00 WBC 6.0 RBC 2.47 L Hgb 7.8 L Hct 23.6 L MCV 95.4 MCH 31.8 MCHC 33.3 RDW 15.4 Plt Count 221 MPV 7.7 Anticoagulation Therapy No Result Required. Puncture Site Right radial Patient Temperature 100.4 ABG pH 7.36 ABG pCO2 at Pt Temp 48.0 H ABG pO2 at Pt Temp 138 H ABG HCO3 26.1 ABG O2 Sat (Measured) 98.8 H ABG O2 Content 10.7 ABG Base Excess 1.3 Dante Test Positive O2 Delivery Device Vent Oxygen Flow Rate 60% Vent Mode A/c Vent Rate 16 Mechanical Rate Yes PEEP 5.0 Pressure Support Vent 500 Sodium 135 L Potassium 3.6 Chloride 103 Carbon Dioxide 27 Anion Gap 5 L BUN 20.1 H Creatinine 0.9 Est GFR (CKD-EPI)AfAm 97.86 Est GFR (CKD-EPI)NonAf 84.43 POC Glucometer Random Glucose 115 H Calcium 8.1 L Phosphorus 2.5 Magnesium 2.4 Total Bilirubin 0.4 AST 98 H ALT 68 H Alkaline Phosphatase 122 H Total Protein 5.4 L Albumin 2.0 L 07/19/19 06:20 WBC RBC Hgb Hct MCV MCH MCHC RDW Plt Count MPV Anticoagulation Therapy Puncture Site Patient Temperature ABG pH ABG pCO2 at Pt Temp ABG pO2 at Pt Temp ABG HCO3 ABG O2 Sat (Measured) ABG O2 Content ABG Base Excess Dante Test O2 Delivery Device Oxygen Flow Rate Vent Mode Vent Rate Mechanical Rate PEEP Pressure Support Vent Sodium Potassium Chloride Carbon Dioxide Anion Gap BUN Creatinine Est GFR (CKD-EPI)AfAm Est GFR (CKD-EPI)NonAf POC Glucometer 120 Random Glucose Calcium Phosphorus Magnesium Total Bilirubin AST ALT Alkaline Phosphatase Total Protein Albumin Active Medications Generic Name Dose Route Start Last Admin Trade Name Freq PRN Reason Stop Dose Admin Acetaminophen 650 mg 07/17/19 17:04 07/18/19 18:00 Tylenol Oral Solution - GT 650 mg Q6H PRN Administration FEVER Chlorhexidine Gluconate 15 ml 07/17/19 22:00 07/19/19 09:21 Peridex - MM 15 ml BID JONH Administration Heparin Sodium (Porcine) 5,000 unit 07/18/19 06:00 07/19/19 06:08 Heparin - SQ 5,000 unit TID JONH Administration Norepinephrine Bitartrate 8, 500 mls @ 18.75 mls/hr 07/15/19 01:15 07/19/19 09:15 000 mcg/ Dextrose IV 5 mcg/min TITR JONH 18.75 mls/hr Titration Protocol 5 MCG/MIN Amiodarone HCl/Dextrose 360 mg in 200 mls @ 16.667 mls/hr 07/15/19 01:30 01:39 Nexterone 360 Mg/200 Ml Bag IVPB 16.667 mls/hr ASDIR JONH Administration Protocol 0.5 MG/MIN Sodium Chloride 1,000 mls @ 83 mls/hr 07/15/19 03:15 07/19/19 05:26 Normal Saline - IV Not Given ASDIR JONH Midazolam HCl 100 mg/ Sodium 100 mls @ 1 mls/hr 07/15/19 08:00 07/19/19 08:53 Chloride IVPB Not Given TITR JONH Protocol 1 MG/HR Ceftriaxone Sodium 1 gm/ 50 mls @ 100 mls/hr 07/16/19 10:00 07/19/19 09:21 Dextrose IVPB 100 mls/hr DAILY JONH Administration Protocol Vancomycin HCl 1,000 mg in 250 mls @ 166.667 mls/hr 07/18/19 17:00 07/19/19 06:08 Vancomycin (Pre-Docked) IVPB 166.667 mls/hr Q12H JONH Administration Protocol Potassium Chloride 10 meq in 100 mls @ 100 mls/hr 07/19/19 08:45 07/19/19 10: 00 Potassium Chloride 10 Meq Premix Ivpb - IVPB 07/19/19 11:44 100 mls/hr Q60M JONH Administration Insulin Aspart 1 vial 07/16/19 07:00 07/19/19 06:21 Novolog Vial Sliding Scale - SQ Not Given TIDAC JONH Protocol Levetiracetam 500 mg 07/16/19 06:00 07/19/19 06:08 Keppra Injection - IVPB 500 mg 0600,1800 JONH Administration Mannitol 50 gm 07/19/19 11:14 Osmitrol - IVPB Q8H-IV JONH Mupirocin 1 applic 07/15/19 22:00 07/19/19 09:21 Bactroban Ointment (For Decolonization) - NS 07/20/19 21:59 1 applic BID JONH Administration Pantoprazole Sodium 40 mg 07/15/19 10:00 07/19/19 09:21 Protonix Iv IVPUSH 40 mg DAILY JONH Administration ASSESSMENT/PLAN: 73 yo M PMH COPD(4L O2), pulmonary HTN, RADHIKA, HFpEF(LVEF 60-65%, 12/20/18), moderate Aortic Stenosis, HTN, HLD, CAD s/p RCA DAVID (2003,2004,2018), pAFib( Eliquis), cardiac arrest([facility], November 2018) BIBA after being found down and pulseless in his home. Upon [facility]-ED arrival, pt was found to be in asystole then PEA. ED sp Epi x5, bicarb; achieved ROSC. Intubated. Getting Levophed gtt, amiodarone gtt, MgSO4. Admitted to ICU for [id number]-[id number] care. NEURO # metabolic encephalopathy --possibly 2/2 in-field hypoxia # possible anoxic brain injury > CTH(07/15/19): neg intracranial abn; no hemorrhage, no infarct, no fx. Left frontal/periorbital scalp injury > CTH(07/18/19): brain edema w/o herniation. Left forehead w/ scalp hematoma - not on sedation, pt unable to participate on neuro exam - Neuro(Jennini) consult: --rpt CTH notable for brain edema --keppra --mannitol to reduce brain edema --fu PM electrolyte shifts RESPIR # Respiratory Failure --intubated # chronic COPD > VBG(07/15/19): 7.08/98.9/<49/28.0/46.7 > CXR(07/18/19): prominent mediastinum w/ enlarged heart. Left lung base w/ infiltrate vs atelectasis - cw ventilator - holding sedation CARDIO # Post-Cardiac Arrest(ROSC after epi x5, bicarb) # hypotension # chronic pAF # chronic dyslipidemia # CAD > troponin neg x1, fu repeats > BNP 1166 -Targeted Temperature Mgmt: goal Temp <36C for at least 24hs and to keep pt afeb --ice packs and cooling blanket PRN -Pressors: Levophed -Sedation: midazolam -amiodarone gtt -MAP goal >65 -HOLD home Eliquis, Bumex, Metoprolol, Amiodarone PO, Eplerenone, Ezetimibe, Atorvastatin GI # transaminitis --likely 2/2 to shock ---improving > AST/ALT: 144/130 -->98/68 -OGT in place -Tube feeds -NPO -trend LFTs RENAL # CANDY --2/2 to hypotension ---resolved # lactic acidemia ---resolving > lactic acid: 8.3 -->2.9 > Cr(baseline ~1.0): 1.6 --> 0.9 > UA: neg LE, neg nitrite -gentle IVF HEME/ID # macrocytic anemia -monitor H/H > UCX(07/15/19): NGTD > BCX(07/15/19): 1 of 2 bottle growing staphylococus Simulans > BCX(07/18/19) --pending - ID(Hernando) consult: --BCX likley contaminant --cw empiric ceftriaxone --stopped vancomycin --possibly neurogenic fevers FEN -NS @83 -TF: Osmolit PPX -SQH LINES -ETT -OGT -RIJ -Shah CODE STATUS: DNR Dispo: We will continue to follow the patient. Thank you for this consultative opportunity. Visit type - Emergency Visit Emergency Visit: No - New Patient This patient is new to me today: No - Critical Care Critical Care patient: Yes Total Critical Care Time (in minutes): 36 Critical Care Statement: The care of this patient involved high complexity decision making to prevent further life threatening deterioration of the patient 's condition and/or to evaluate & treat vital organ system(s) failure or risk of failure. ATTENDING PHYSICIAN STATEMENT I saw and evaluated the patient. I reviewed the resident's note and discussed the case with the resident. I agree with the resident's findings and plan as documented. SUBJECTIVE: OBJECTIVE: ASSESSMENT AND PLAN:
--- NOTE | 2019-07-19 11:54 | PN ---
Teaching Attending Note Name of Resident: Luis Daniel Hayward ATTENDING PHYSICIAN STATEMENT I saw and evaluated the patient. I reviewed the resident's note and discussed the case with the resident. I agree with the resident's findings and plan as documented. SUBJECTIVE: Patient seen and examined in the ICU. Remains poorly responsive off sedation. AC Mode of vent. No gross changein Neuro exam. Intake & Output 07/16/19 07/17/19 07/18/19 07/19/19 23:59 23:59 23:59 23:59 Intake Total 2257 2796.6 3580 1464 Output Total 029 089 4549 700 Balance 1632 2626.6 1530 764 Weight 187 lb 1.6 oz 185 lb 193 lb 11.2 oz 196 lb 3.2 oz Last Vital Signs Temp Pulse Resp BP Pulse Ox 100.8 F H 73 25 H 125/49 L 100 07/19/19 10:00 07/19/19 10:00 07/19/19 10:00 07/19/19 10:00 07/19/19 08:24 Active Medications Acetaminophen (Tylenol Oral Solution -) 650 mg GT Q6H PRN PRN Reason: FEVER Last Admin: 07/18/19 18:00 Dose: 650 mg Chlorhexidine Gluconate (Peridex -) 15 ml MM BID JONH Last Admin: 07/19/19 09:21 Dose: 15 ml Heparin Sodium (Porcine) (Heparin -) 5,000 unit SQ TID JONH Last Admin: 07/19/19 06:08 Dose: 5,000 unit Norepinephrine Bitartrate 8, (000 mcg/ Dextrose) 500 mls @ 18.75 mls/hr IV TITR JONH; Protocol Last Titration: 07/19/19 09:15 Dose: 5 mcg/min, 18.75 mls/hr Amiodarone HCl/Dextrose (Nexterone 360 Mg/200 Ml Bag) 360 mg in 200 mls @ 16.667 mls/hr IVPB ASDIR JONH; Protocol Last Admin: 07/19/19 01:39 Dose: 16.667 mls/hr Sodium Chloride (Normal Saline -) 1,000 mls @ 83 mls/hr IV ASDIR JONH Last Admin: 07/19/19 05:26 Dose: Not Given Midazolam HCl 100 mg/ Sodium (Chloride) 100 mls @ 1 mls/hr IVPB TITR JONH; Protocol Last Admin: 07/19/19 08:53 Dose: Not Given Ceftriaxone Sodium 1 gm/ (Dextrose) 50 mls @ 100 mls/hr IVPB DAILY JONH; Protocol Last Admin: 07/19/19 09:21 Dose: 100 mls/hr Vancomycin HCl (Vancomycin (Pre-Docked)) 1,000 mg in 250 mls @ 166.667 mls/hr IVPB Q12H JONH; Protocol Last Admin: 07/19/19 06:08 Dose: 166.667 mls/hr Mannitol 50 gm/ Dextrose 333 mls @ 333 mls/hr IVPB Q8H-IV JONH Insulin Aspart (Novolog Vial Sliding Scale -) 1 vial SQ TIDAC [facility]; Protocol Last Admin: 07/19/19 11:43 Dose: Not Given Levetiracetam (Keppra Injection -) 500 mg IVPB 0600,1800 [facility] Last Admin: 07/19/19 06:08 Dose: 500 mg Mupirocin (Bactroban Ointment (For Decolonization) -) 1 applic NS BID [facility] Stop: 07/20/19 21:59 Last Admin: 07/19/19 09:21 Dose: 1 applic Pantoprazole Sodium (Protonix Iv) 40 mg IVPUSH DAILY [facility] Last Admin: 07/19/19 09:21 Dose: 40 mg Gen: Intubated, minimally responsive Neck: Yes: Supple Respiratory: Yes: Intubated, Mechanically Ventilated Gastrointestinal: Yes: Soft, Hypoactive Bowel Sounds Cardiovascular: Yes: S1S2 JVD: No Carotid Bruit: No Heart Sounds: Yes: S1, S2 Edema: No Laboratory Results - last 24 hr 07/18/19 07/18/19 07/18/19 14:51 18:12 21:00 WBC RBC Hgb Hct MCV MCH MCHC RDW Plt Count MPV Anticoagulation Therapy Puncture Site Patient Temperature ABG pH ABG pCO2 at Pt Temp ABG pO2 at Pt Temp ABG HCO3 ABG O2 Sat (Measured) ABG O2 Content ABG Base Excess Dante Test O2 Delivery Device Oxygen Flow Rate Vent Mode Vent Rate Mechanical Rate PEEP Pressure Support Vent Sodium 134 L Potassium 3.9 Chloride 101 Carbon Dioxide 29 Anion Gap 4 L BUN 19.6 H Creatinine 1.0 Est GFR (CKD-EPI)AfAm 86.15 Est GFR (CKD-EPI)NonAf 74.34 POC Glucometer 101 108 Random Glucose 127 H Calcium 7.7 L Phosphorus 2.7 Magnesium 2.3 Total Bilirubin AST ALT Alkaline Phosphatase Total Protein Albumin 07/19/19 07/19/19 07/19/19 05:55 05:55 06:00 WBC 6.0 RBC 2.47 L Hgb 7.8 L Hct 23.6 L MCV 95.4 MCH 31.8 MCHC 33.3 RDW 15.4 Plt Count 221 MPV 7.7 Anticoagulation Therapy No Result Required. Puncture Site Right radial Patient Temperature 100.4 ABG pH 7.36 ABG pCO2 at Pt Temp 48.0 H ABG pO2 at Pt Temp 138 H ABG HCO3 26.1 ABG O2 Sat (Measured) 98.8 H ABG O2 Content 10.7 ABG Base Excess 1.3 Dante Test Positive O2 Delivery Device Vent Oxygen Flow Rate 60% Vent Mode A/c Vent Rate 16 Mechanical Rate Yes PEEP 5.0 Pressure Support Vent 500 Sodium 135 L Potassium 3.6 Chloride 103 Carbon Dioxide 27 Anion Gap 5 L BUN 20.1 H Creatinine 0.9 Est GFR (CKD-EPI)AfAm 97.86 Est GFR (CKD-EPI)NonAf 84.43 POC Glucometer Random Glucose 115 H Calcium 8.1 L Phosphorus 2.5 Magnesium 2.4 Total Bilirubin 0.4 AST 98 H ALT 68 H Alkaline Phosphatase 122 H Total Protein 5.4 L Albumin 2.0 L 07/19/19 07/19/19 06:20 11:41 WBC RBC Hgb Hct MCV MCH MCHC RDW Plt Count MPV Anticoagulation Therapy Puncture Site Patient Temperature ABG pH ABG pCO2 at Pt Temp ABG pO2 at Pt Temp ABG HCO3 ABG O2 Sat (Measured) ABG O2 Content ABG Base Excess Dante Test O2 Delivery Device Oxygen Flow Rate Vent Mode Vent Rate Mechanical Rate PEEP Pressure Support Vent Sodium Potassium Chloride Carbon Dioxide Anion Gap BUN Creatinine Est GFR (CKD-EPI)AfAm Est GFR (CKD-EPI)NonAf POC Glucometer 120 122 Random Glucose Calcium Phosphorus Magnesium Total Bilirubin AST ALT Alkaline Phosphatase Total Protein Albumin Assessment/Plan S/P CP Arrest with ROBERT Previous history of PEA arrest Acute on chronic hypercapneic and hypoxemic respiratory failure Acute on chronic diastolic heart failure COPD OSAS CAD Paroxysmal AF/flutter HPL CANDY AC Mode of vent ABX Strict I & O VTE prophylaxis BD TX PRN Monitor off systemic steroids DNR Requires ICU monitoring Family discussions for further GOC Dr Gaming Critical care time spent in reviewing chart, evaluating patient and formulating plan - 36 minutes.
--- NOTE | 2019-07-19 12:05 | PN ---
Physical Exam: SUBJECTIVE: Patient seen and examined. Pt Intubated, sedated. Does withdraw to pain. Unresponsive, currently on pressors. Afebrile. OBJECTIVE: Vital Signs Period Temp Pulse Resp BP Sys/Govea Pulse Ox Last 24 Hr 99.7 F-100.8 F 71-80 16-27 96-132/42-53 100-100 GENERAL: Intubated, sedated. Does withdraw to pain. Unresponsive, currently on pressors HEAD: Normal with no signs of trauma. EYES: L eye hematoma from fall, L pupil reactive but sluggish, R pupil reactive but sluggish. Horizontal nystagmus seen LUNGS: Coarse breath sound bilaterally, ET intact + ventilated HEART: Regular rate and rhythm, S1, S2 ABDOMEN: Soft, decreased bowel sounds, nondistended. EXTREMITIES: No LE edema, Babinski sign positive b/l LE NEURO: Intubated, sedated. Does withdraw to pain. no cough or gag appreciated Laboratory Results - last 24 hr 07/18/19 07/18/19 07/18/19 14:51 18:12 21:00 WBC RBC Hgb Hct MCV MCH MCHC RDW Plt Count MPV Anticoagulation Therapy Puncture Site Patient Temperature ABG pH ABG pCO2 at Pt Temp ABG pO2 at Pt Temp ABG HCO3 ABG O2 Sat (Measured) ABG O2 Content ABG Base Excess Dante Test O2 Delivery Device Oxygen Flow Rate Vent Mode Vent Rate Mechanical Rate PEEP Pressure Support Vent Sodium 134 L Potassium 3.9 Chloride 101 Carbon Dioxide 29 Anion Gap 4 L BUN 19.6 H Creatinine 1.0 Est GFR (CKD-EPI)AfAm 86.15 Est GFR (CKD-EPI)NonAf 74.34 POC Glucometer 101 108 Random Glucose 127 H Calcium 7.7 L Phosphorus 2.7 Magnesium 2.3 Total Bilirubin AST ALT Alkaline Phosphatase Total Protein Albumin 07/19/19 07/19/19 07/19/19 05:55 05:55 06:00 WBC 6.0 RBC 2.47 L Hgb 7.8 L Hct 23.6 L MCV 95.4 MCH 31.8 MCHC 33.3 RDW 15.4 Plt Count 221 MPV 7.7 Anticoagulation Therapy No Result Required. Puncture Site Right radial Patient Temperature 100.4 ABG pH 7.36 ABG pCO2 at Pt Temp 48.0 H ABG pO2 at Pt Temp 138 H ABG HCO3 26.1 ABG O2 Sat (Measured) 98.8 H ABG O2 Content 10.7 ABG Base Excess 1.3 Dante Test Positive O2 Delivery Device Vent Oxygen Flow Rate 60% Vent Mode A/c Vent Rate 16 Mechanical Rate Yes PEEP 5.0 Pressure Support Vent 500 Sodium 135 L Potassium 3.6 Chloride 103 Carbon Dioxide 27 Anion Gap 5 L BUN 20.1 H Creatinine 0.9 Est GFR (CKD-EPI)AfAm 97.86 Est GFR (CKD-EPI)NonAf 84.43 POC Glucometer Random Glucose 115 H Calcium 8.1 L Phosphorus 2.5 Magnesium 2.4 Total Bilirubin 0.4 AST 98 H ALT 68 H Alkaline Phosphatase 122 H Total Protein 5.4 L Albumin 2.0 L 07/19/19 07/19/19 06:20 11:41 WBC RBC Hgb Hct MCV MCH MCHC RDW Plt Count MPV Anticoagulation Therapy Puncture Site Patient Temperature ABG pH ABG pCO2 at Pt Temp ABG pO2 at Pt Temp ABG HCO3 ABG O2 Sat (Measured) ABG O2 Content ABG Base Excess Dante Test O2 Delivery Device Oxygen Flow Rate Vent Mode Vent Rate Mechanical Rate PEEP Pressure Support Vent Sodium Potassium Chloride Carbon Dioxide Anion Gap BUN Creatinine Est GFR (CKD-EPI)AfAm Est GFR (CKD-EPI)NonAf POC Glucometer 120 122 Random Glucose Calcium Phosphorus Magnesium Total Bilirubin AST ALT Alkaline Phosphatase Total Protein Albumin Active Medications Current Medications Acetaminophen (Tylenol Oral Solution -) 650 mg GT Q6H PRN PRN Reason: FEVER Last Admin: 07/18/19 18:00 Dose: 650 mg Chlorhexidine Gluconate (Peridex -) 15 ml MM BID JONH Last Admin: 07/19/19 09:21 Dose: 15 ml Heparin Sodium (Porcine) (Heparin -) 5,000 unit SQ TID JONH Last Admin: 07/19/19 06:08 Dose: 5,000 unit Norepinephrine Bitartrate 8, (000 mcg/ Dextrose) 500 mls @ 18.75 mls/hr IV TITR [facility]; Protocol Last Titration: 07/19/19 09:15 Dose: 5 mcg/min, 18.75 mls/hr Amiodarone HCl/Dextrose (Nexterone 360 Mg/200 Ml Bag) 360 mg in 200 mls @ 16.667 mls/hr IVPB ASDIR [facility]; Protocol Last Admin: 07/19/19 01:39 Dose: 16.667 mls/hr Sodium Chloride (Normal Saline -) 1,000 mls @ 83 mls/hr IV ASDIR JONH Last Admin: 07/19/19 05:26 Dose: Not Given Midazolam HCl 100 mg/ Sodium (Chloride) 100 mls @ 1 mls/hr IVPB TITR JONH; Protocol Last Admin: 07/19/19 08:53 Dose: Not Given Ceftriaxone Sodium 1 gm/ (Dextrose) 50 mls @ 100 mls/hr IVPB DAILY JONH; Protocol Last Admin: 07/19/19 09:21 Dose: 100 mls/hr Vancomycin HCl (Vancomycin (Pre-Docked)) 1,000 mg in 250 mls @ 166.667 mls/hr IVPB Q12H [facility]; Protocol Last Admin: 07/19/19 06:08 Dose: 166.667 mls/hr Mannitol 50 gm/ Dextrose 333 mls @ 333 mls/hr IVPB Q8H-IV JONH Insulin Aspart (Novolog Vial Sliding Scale -) 1 vial SQ TIDAC [facility]; Protocol Last Admin: 07/19/19 11:43 Dose: Not Given Levetiracetam (Keppra Injection -) 500 mg IVPB 0600,1800 [facility] Last Admin: 07/19/19 06:08 Dose: 500 mg Mupirocin (Bactroban Ointment (For Decolonization) -) 1 applic NS BID [facility] Stop: 07/20/19 21:59 Last Admin: 07/19/19 09:21 Dose: 1 applic Pantoprazole Sodium (Protonix Iv) 40 mg IVPUSH DAILY [facility] Last Admin: 07/19/19 09:21 Dose: 40 mg Home Medications Medication Instructions Recorded Sertraline HCl [Zoloft] 100 mg PO DAILY 01/09/12 Albuterol Sulfate Inhaler - 1 - 2 puff IH PRN PRN MDD Q4-6 12/15/18 [Ventolin HFA Inhaler -] hours Atorvastatin Ca [Lipitor] 40 mg PO HS 12/15/18 Eplerenone 25 mg PO DAILY 12/15/18 Ezetimibe 10 mg PO DAILY 12/15/18 Lamotrigine [Lamictal] 25 mg PO DAILY 12/15/18 Metoprolol Succinate [Toprol Xl] 12.5 mg PO BID 12/15/18 Ranolazine [Ranexa] 1,000 mg PO BID 12/15/18 Fluticasone/Vilanterol [Breo 1 puff IN DAILY 12/16/18 Ellipta 200-25 Mcg INH] Amiodarone HCl 200 mg PO DAILY 05/29/19 Apixaban [Eliquis] 5 mg PO BID 05/29/19 Bumetanide [Bumex -] 1 mg PO BID 05/29/19 Microbiology 07/15/19 01:20 Blood - Arterial Blood Culture - Final Staphylococcus Coagulase Neg 07/18/19 05:34 Blood - Peripheral Venous Blood Culture - Preliminary NO GROWTH OBTAINED AFTER 24 HOURS, INCUBATION TO CONTINUE FOR 4 DAYS. 07/18/19 06:45 Blood - Peripheral Venous Blood Culture - Preliminary NO GROWTH OBTAINED AFTER 24 HOURS, INCUBATION TO CONTINUE FOR 4 DAYS. 07/15/19 01:20 Blood - Arterial Blood Culture - Final Staphylococcus Simulans 07/15/19 05:00 Urine - Urine Shah Urine Culture - Final NO GROWTH OBTAINED ASSESSMENT/PLAN: 74 y/o M PMH cardiac arrest 11/2018, a-flutter on eliquis, COPD on 4L home o2, pulm HTN, RADHIKA, HFpEF, HTN, HLD, CAD s/p RCA stent, medication noncompliance presented s/p cardiac arrest #s/p Cardiac arrest s/p targeted temperature management on pressors to maintain MAP >65 AC mode of vent Blood cultures growing Staph coag neg- could be contaminated- pending r/p Cx Ceftriaxone 1 g IVF I&O Pt is DNR Pending Family to make decision #Anoxic encephalopathy Then continue levetiracetam 500 mg q 12 hrs. Midazolam d/just[place] 8000mcg CT head for evaluation of anoxic Brain injury- brain edema w/out evidence of subfalcine or inferior herniation, no intracranial hemorrhage or gross focal acute infract, no shift of midline structure. Residual mild soft tissue swelling /hematoma of the scalp over the left forehead. Mannitol administered #Hx a-flutter holding eliquis in setting of acute blood loss- Cardio recom to cont eliquis/AC on amiodarone drip Cardio recom to continue Bumetanide, Eplerenone, Toprol XL, Lipitor #Anemia cont to monitor #CANDY now resolved #Transaminitis likely shock liver LFTs trending down continue to monitor #Hyperglycemia now resolved continue BGMs Insulin sliding scale #FEN IV NS @83cc/hr monitor lytes NPO #DVT ppx SCDs #GI ppx Protonix 40mg IV daily #Dispo: Pending family decision on compassionate extubation, will f/u Visit type - Emergency Visit Emergency Visit: Yes ED Registration Date: 07/15/19 Care time: The patient presented to the Emergency Department on the above date and was hospitalized for further evaluation of their emergent condition. - New Patient This patient is new to me today: Yes Date on this admission: 07/20/19 - Critical Care Critical Care patient: No - Discharge Referral Referred to [facility] No ATTENDING PHYSICIAN STATEMENT I saw and evaluated the patient. I reviewed the resident's note and discussed the case with the resident. I agree with the resident's findings and plan as documented. SUBJECTIVE: OBJECTIVE: ASSESSMENT AND PLAN:
[2019-07-19] MEDS: WATER IVPB SCH ×2 (12:31→21:20)
[2019-07-19] MEDS: MANNITOL IVPB SCH ×2 (12:31→21:20)
[2019-07-19] MEDS: DEXTROSE 5% IVPB SCH ×2 (12:31→21:20)
[2019-07-19] MEDS ORDERED: WATER IVPB SCH (13:00)
[2019-07-19] MEDS ORDERED: DEXTROSE 5% IVPB SCH (13:00)
[2019-07-19] MEDS ORDERED: MANNITOL IVPB SCH (13:00)
--- NOTE | 2019-07-19 15:00 | PN ---
Progress Note (short form) - Note Progress Note: remains unresponsive off sedation Vital Signs Period Temp Pulse Resp BP Sys/Govea Pulse Ox Last 24 Hr 99.7 F-100.9 F 71-80 16-27 96-132/42-53 100-100 cor-rrr lungs decreased bs at bases abd soft,nt ext no edema CBC, BMP 07/19/19 05:55 07/19/19 05:55 Microbiology 07/15/19 01:20 Blood - Arterial Blood Culture - Final Staphylococcus Coagulase Neg 07/18/19 05:34 Blood - Peripheral Venous Blood Culture - Preliminary NO GROWTH OBTAINED AFTER 24 HOURS, INCUBATION TO CONTINUE FOR 4 DAYS. 07/18/19 06:45 Blood - Peripheral Venous Blood Culture - Preliminary NO GROWTH OBTAINED AFTER 24 HOURS, INCUBATION TO CONTINUE FOR 4 DAYS. 07/15/19 01:20 Blood - Arterial Blood Culture - Final Staphylococcus Simulans 07/15/19 05:00 Urine - Urine Shah Urine Culture - Final NO GROWTH OBTAINED a/p s/p arrest history of prior arrest in November 2018 bacteremia d/c vancomycin continue rocephin, ?pneumonia suspect low grade temps in the setting of normal wbc may represent central fevers Problem List - Problems (1) Cardiac arrest Code(s): I46.9 - CARDIAC ARREST, CAUSE UNSPECIFIED (2) Bacteremia Code(s): R78.81 - BACTEREMIA
[2019-07-19] MEDS ORDERED: BENZOIN/ALOE VERA/STORAX/TOLU 58 ML BOTTLE ONE (16:59)
--- NOTE | 2019-07-19 17:11 | PN ---
Teaching Attending Note Name of Resident: Taz Hernández ATTENDING PHYSICIAN STATEMENT I saw and evaluated the patient. I reviewed the resident's note and discussed the case with the resident. I agree with the resident's findings and plan as documented. SUBJECTIVE: Intubated/Mechanically Ventilated, unable to participate in medical interview. No fever/chills. OBJECTIVE: Febrile, BP maintained on Levophed. Off versed for now. Poorly responsive, withdraws from pain. NANCI. Last Vital Signs Temp Pulse Resp BP Pulse Ox 100.4 F H 75 26 H 126/49 L 100 07/19/19 14:00 07/19/19 16:00 07/19/19 16:00 07/19/19 16:00 07/19/19 08:24 HEART: S1S2, RRR LUNGS: Intubated/Ventilated - good air entry bilaterally ABDOMEN: Soft, non-distended, hypoactive BS EXTREMITIES: Trace edema Laboratory Results - last 24 hr 07/18/19 07/18/19 07/19/19 18:12 21:00 05:55 WBC 6.0 RBC 2.47 L Hgb 7.8 L Hct 23.6 L MCV 95.4 MCH 31.8 MCHC 33.3 RDW 15.4 Plt Count 221 MPV 7.7 Anticoagulation Therapy Puncture Site Patient Temperature ABG pH ABG pCO2 at Pt Temp ABG pO2 at Pt Temp ABG HCO3 ABG O2 Sat (Measured) ABG O2 Content ABG Base Excess Dante Test O2 Delivery Device Oxygen Flow Rate Vent Mode Vent Rate Mechanical Rate PEEP Pressure Support Vent Sodium 134 L Potassium 3.9 Chloride 101 Carbon Dioxide 29 Anion Gap 4 L BUN 19.6 H Creatinine 1.0 Est GFR (CKD-EPI)AfAm 86.15 Est GFR (CKD-EPI)NonAf 74.34 POC Glucometer 108 Random Glucose 127 H Calcium 7.7 L Phosphorus 2.7 Magnesium 2.3 Total Bilirubin AST ALT Alkaline Phosphatase Total Protein Albumin 07/19/19 07/19/19 07/19/19 05:55 06:00 06:20 WBC RBC Hgb Hct MCV MCH MCHC RDW Plt Count MPV Anticoagulation Therapy No Result Required. Puncture Site Right radial Patient Temperature 100.4 ABG pH 7.36 ABG pCO2 at Pt Temp 48.0 H ABG pO2 at Pt Temp 138 H ABG HCO3 26.1 ABG O2 Sat (Measured) 98.8 H ABG O2 Content 10.7 ABG Base Excess 1.3 Dante Test Positive O2 Delivery Device Vent Oxygen Flow Rate 60% Vent Mode A/c Vent Rate 16 Mechanical Rate Yes PEEP 5.0 Pressure Support Vent 500 Sodium 135 L Potassium 3.6 Chloride 103 Carbon Dioxide 27 Anion Gap 5 L BUN 20.1 H Creatinine 0.9 Est GFR (CKD-EPI)AfAm 97.86 Est GFR (CKD-EPI)NonAf 84.43 POC Glucometer 120 Random Glucose 115 H Calcium 8.1 L Phosphorus 2.5 Magnesium 2.4 Total Bilirubin 0.4 AST 98 H ALT 68 H Alkaline Phosphatase 122 H Total Protein 5.4 L Albumin 2.0 L 07/19/19 07/19/19 11:41 16:48 WBC RBC Hgb Hct MCV MCH MCHC RDW Plt Count MPV Anticoagulation Therapy Puncture Site Patient Temperature ABG pH ABG pCO2 at Pt Temp ABG pO2 at Pt Temp ABG HCO3 ABG O2 Sat (Measured) ABG O2 Content ABG Base Excess Dante Test O2 Delivery Device Oxygen Flow Rate Vent Mode Vent Rate Mechanical Rate PEEP Pressure Support Vent Sodium Potassium Chloride Carbon Dioxide Anion Gap BUN Creatinine Est GFR (CKD-EPI)AfAm Est GFR (CKD-EPI)NonAf POC Glucometer 122 118 Random Glucose Calcium Phosphorus Magnesium Total Bilirubin AST ALT Alkaline Phosphatase Total Protein Albumin Current Medications Generic Name Dose Route Start Last Admin Trade Name Freq PRN Reason Stop Dose Admin Acetaminophen 650 mg 07/17/19 17:04 07/18/19 18:00 Tylenol Oral Solution - GT 650 mg Q6H PRN Administration FEVER Chlorhexidine Gluconate 15 ml 07/17/19 22:00 07/19/19 09:21 Peridex - MM 15 ml BID JONH Administration Heparin Sodium (Porcine) 5,000 unit 07/18/19 06:00 07/19/19 15:30 Heparin - SQ 5,000 unit TID JONH Administration Norepinephrine Bitartrate 8, 500 mls @ 18.75 mls/hr 07/15/19 01:15 07/19/19 09:15 000 mcg/ Dextrose IV 5 mcg/min TITR JONH 18.75 mls/hr Titration Protocol 5 MCG/MIN Amiodarone HCl/Dextrose 360 mg in 200 mls @ 16.667 mls/hr 07/15/19 01:30 01:39 Nexterone 360 Mg/200 Ml Bag IVPB 16.667 mls/hr ASDIR JONH Administration Protocol 0.5 MG/MIN Sodium Chloride 1,000 mls @ 83 mls/hr 07/15/19 03:15 07/19/19 05:26 Normal Saline - IV Not Given ASDIR JONH Midazolam HCl 100 mg/ Sodium 100 mls @ 1 mls/hr 07/15/19 08:00 07/19/19 08:53 Chloride IVPB Not Given TITR JONH Protocol 1 MG/HR Ceftriaxone Sodium 1 gm/ 50 mls @ 100 mls/hr 07/16/19 10:00 07/19/19 09:21 Dextrose IVPB 100 mls/hr DAILY JONH Administration Protocol Mannitol 50 gm/ Dextrose 333 mls @ 333 mls/hr 07/19/19 12:00 07/19/19 12:31 IVPB 333 mls/hr Q8H-IV JONH Administration Insulin Aspart 1 vial 07/16/19 07:00 07/19/19 16:51 Novolog Vial Sliding Scale - SQ Not Given TIDAC [facility] Protocol Levetiracetam 500 mg 07/16/19 06:00 07/19/19 06:08 Keppra Injection - IVPB 500 mg 0600,1800 JONH Administration Mupirocin 1 applic 07/15/19 22:00 07/19/19 09:21 Bactroban Ointment (For Decolonization) - NS 07/20/19 21:59 1 applic BID JONH Administration Pantoprazole Sodium 40 mg 07/15/19 10:00 07/19/19 09:21 Protonix Iv IVPUSH 40 mg DAILY JONH Administration Home Medications Medication Instructions Recorded Sertraline HCl [Zoloft] 100 mg PO DAILY 01/09/12 Albuterol Sulfate Inhaler - 1 - 2 puff IH PRN PRN MDD Q4-6 12/15/18 [Ventolin HFA Inhaler -] hours Atorvastatin Ca [Lipitor] 40 mg PO HS 12/15/18 Eplerenone 25 mg PO DAILY 12/15/18 Ezetimibe 10 mg PO DAILY 12/15/18 Lamotrigine [Lamictal] 25 mg PO DAILY 12/15/18 Metoprolol Succinate [Toprol Xl] 12.5 mg PO BID 12/15/18 Ranolazine [Ranexa] 1,000 mg PO BID 12/15/18 Fluticasone/Vilanterol [Breo 1 puff IN DAILY 12/16/18 Ellipta 200-25 Mcg INH] Amiodarone HCl 200 mg PO DAILY 05/29/19 Apixaban [Eliquis] 5 mg PO BID 05/29/19 Bumetanide [Bumex -] 1 mg PO BID 05/29/19 ASSESSMENT AND PLAN: 74 year old male with history of HTN, HLD, s/p cardiac arrest, CAD with stent, Atrial Flutter, chronic diastolic heart failure, chronic hypoxic respiratory failure, COPD, pulm HTN, RADHIKA who was brought to the ED after a cardiac arrest at home. 1. Acute on chronic hypoxic and hypercapneic respiratory failure s/p Cardiac Arrest with prolonged down-time Intubated/Ventilated. Management as per Marketing Sales Manager. Hx of PEA arrest. 2. Septic ? Cardiogenic Shock s/p arrest Sec to Pneumonia, Staph simulans bacteremia Repeat Blood Cx pending. Vancomycin stopped. Continue Ceftriaxone. ID following. Ongoing fevers possibly central. 3. Acute Anoxic Encephalopathy, possible, with Seizures Poorly responsive off Versed Sedation Appears to withdraw to painful stimuli LEs. Started on Keppra. 4. Paroxysmal atrial flutter - Continue Amiodarone drip. Anticoagulation held secondary to anemia. Previously on Eliquis. 5. HTN - Antihypertensives held secondary to shock. On Levophed. 6. Hx CAD s/p PCI/stent/[employer] RCA 7. CANDY - improved. 8. Hepatic Transaminitis - secondary to shock, improving. 9. CRF sec to COPD/Pul HTN - continue mechanical ventilation - no evidence of acute exacerbation COPD. DVT Px - Heparin SQ GI Px - PPI Family aware of poor prognosis, consideration being given to terminal extubation. Currently DNR.
[2019-07-19] MEDS ORDERED: PT OWN MED DRAWER 7, Y5N ONE (18:36)
[2019-07-20] MEDS: ACETAMINOPHEN 650 MG/20.3 ML ORAL SOLUTION (CUPS) GT PRN (01:43)
[2019-07-20] MEDS: AMIODARONE IN DEXTROSE,ISO-OSM 360 MG/200 ML BAG IVPB SCH ×2 (02:08→16:57)
[2019-07-20] MEDS: HEPARIN NA (PORCINE) 5,000 UNITS/ML 1ML VIAL SQ SCH ×3 (05:37→21:16)
[2019-07-20] MEDS: levETIRAcetam 500 MG/5 ML INJECTION VIAL IVPB SCH ×2 (05:37→17:02)
[2019-07-20] MEDS: SODIUM CHLORIDE 1,000 ML IV SCH ×2 (05:38→13:23)
[2019-07-20] MEDS: NOREPINEPHRINE BITARTRATE 8,000 MCG in DEXTROSE 5%-WATER - 492 ML IV SCH ×2 (05:38→13:53)
[2019-07-20 05:54] LABS: HEMATOCRIT 22.6 % (35.4-49); HEMOGLOBIN 7.6 GM/dL (11.7-16.9); MCH 31.8 pg (25.7-33.7); MCHC 33.4 g/dl (32.0-35.9); MEAN CELL VOLUME 95.3 fl (80-96); MEAN PLT VOLUME 7.6 fl (7.5-11.1); PLATELET COUNT 205 K/MM3 (134-434); RBC 2.37 M/mm3 (4.00-5.60); RDW 15.7 % (11.9-15.9); WHITE BLOOD COUNT 6.1 K/mm3 (4.0-10.0)
[2019-07-20] MEDS ORDERED: ACETAMINOPHEN 1000 MG/100 ML VIAL (NON FORMULARY) IVPB ONE (06:00)
[2019-07-20] MEDS: INSULIN SLIDING SCALE (NOVOLOG) 1 VIAL SQ SCH ×3 (06:02→17:08)
[2019-07-20] MEDS: MANNITOL IVPB SCH ×3 (06:03→18:17)
[2019-07-20] MEDS: DEXTROSE 5% IVPB SCH ×3 (06:03→18:17)
[2019-07-20] MEDS: WATER IVPB SCH ×3 (06:03→18:17)
[2019-07-20 06:43] LABS: ALBUMIN 1.9 g/dl (3.4-5.0); BILIRUBIN,TOTAL 0.4 mg/dL (0.2-1); CALCIUM 7.7 mg/dL (8.5-10.1); CREATININE 0.9 mg/dL (0.55-1.3); MAGNESIUM 2.2 mg/dL (1.8-2.4); POTASSIUM 3.8 mmol/L (3.5-5.1); TOT PROT 5.1 g/dl (6.4-8.2)
[2019-07-20] MEDS ORDERED: cefTRIAXone SODIUM 1 GM VIAL ONE (07:49)
[2019-07-20] MEDS ORDERED: DEXTROSE 5%-WATER - 50 ML IVPB ONE (07:50)
[2019-07-20] MEDS: MIDAZOLAM 100 MG in SODIUM CHLORIDE 100 ML IVPB SCH ×2 (08:00→23:00)
--- NOTE | 2019-07-20 08:31 | PN ---
Progress Note (short form) - Note Progress Note: Neurology CHIEF COMPLAINT: cardiac arrest PCP: dr. rodriguez HISTORY OF PRESENT ILLNESS: 74 y.o. M PMH prior cardiac arrest 11/2018, COPD on 4L home o2, a-flutter, pulm HTN, RADHIKA, HFpEF, HTN, HLD, CAD s/p RCA stent, medication noncompliance presented for cardiac arrest. According to , present at bedside, the patient was found down at home in a small pool of blood. is a doctor, noted the patient did not have a pulse and called EMS. EMS arrived within 10 mins and began resuscitative efforts w/ TRACY system but could not intubate in the field. On arrival to patient was in asystole, then PEA; patient received a total of 5 pushes epi, 1 x bicarb, ROSC achieved. Patient was hypotensive in ED, fem line placed, levo & amio gtt initiated. Intubated in ED. Spoke with patient's regarding future resuscitative efforts, now signed DNR paperwork , in chart. Head CT completed and showed no acute pathology. Neurology consulted due to concern regarding abnormal movements and possible decorticate positioning. Appreciate initial evaluation by Dr. Moreno, note reviewed. Patient remains on Keppra 500mg twice daily. During my evaluation, not on sedation, patient does demonstrate brainstem reflexes including pupillary response and per nurse is overbreathing the vent, no abnormal movements noted during my evaluation, not following commands or performing any purposeful movements. Repeated Head CT reviewed and demonstrated brain edema w/o evidence of subfalcine or inferior herniation. No hemorrhage or gross focal acute infarct. Residual mild soft tissue swelling/ hematoma of scalp over L. forehead. Mentioned to resident possibility of mannitol, restarted. neurologically, no significant improvement thus far and not able to be extubated as of yet. If this continues, prognosis would be poor but will need to continue evaluate for the next few days. Active Medications Acetaminophen (Tylenol Oral Solution -) 650 mg GT Q6H PRN PRN Reason: FEVER Last Admin: 07/20/19 01:43 Dose: 650 mg Chlorhexidine Gluconate (Peridex -) 15 ml MM BID [facility] Last Admin: 07/19/19 21:20 Dose: 15 ml Heparin Sodium (Porcine) (Heparin -) 5,000 unit SQ TID [facility] Last Admin: 07/20/19 05:37 Dose: 5,000 unit Norepinephrine Bitartrate 8, (000 mcg/ Dextrose) 500 mls @ 18.75 mls/hr IV TITR JONH; Protocol Last Admin: 07/20/19 05:38 Dose: 3 mcg/min, 11.25 mls/hr Amiodarone HCl/Dextrose (Nexterone 360 Mg/200 Ml Bag) 360 mg in 200 mls @ 16.667 mls/hr IVPB ASDIR JON[facility]; Protocol Last Admin: 07/20/19 02:08 Dose: 16.667 mls/hr Sodium Chloride (Normal Saline -) 1,000 mls @ 83 mls/hr IV ASDIR JONH Last Admin: 07/20/19 05:38 Dose: 83 mls/hr Midazolam HCl 100 mg/ Sodium (Chloride) 100 mls @ 1 mls/hr IVPB TITR JONH; Protocol Last Admin: 07/19/19 08:53 Dose: Not Given Ceftriaxone Sodium 1 gm/ (Dextrose) 50 mls @ 100 mls/hr IVPB DAILY JON[facility]; Protocol Last Admin: 07/19/19 09:21 Dose: 100 mls/hr Mannitol 50 gm/ Dextrose 333 mls @ 333 mls/hr IVPB Q8H-IV [facility]ON[facility] Last Admin: 07/20/19 06:03 Dose: 333 mls/hr Sodium Phosphate 15 mm/ Sodium (Chloride) 255 mls @ 62.5 mls/hr IVPB ONCE ONE Stop: 07/20/19 13:34 Insulin Aspart (Novolog Vial Sliding Scale -) 1 vial SQ TIDAC [facility]; Protocol Last Admin: 07/20/19 06:02 Dose: Not Given Levetiracetam (Keppra Injection -) 500 mg IVPB 0600,1800 [facility] Last Admin: 07/20/19 05:37 Dose: 500 mg Mupirocin (Bactroban Ointment (For Decolonization) -) 1 applic NS BID JONH Stop: 07/20/19 21:59 Last Admin: 07/19/19 21:20 Dose: 1 applic Pantoprazole Sodium (Protonix Iv) 40 mg IVPUSH DAILY JONH Last Admin: 07/19/19 09:21 Dose: 40 mg PHYSICAL EXAMINATION Vital Signs Period Temp Pulse Resp BP Sys/Govea Pulse Ox Last 24 Hr 99.8 F-101.2 F 68-75 17-29 114-147/48-56 99-100 GENERAL: intubated HEENT: Pupils ~2mm,rresponsive LUNGS: + vent sounds b/l HEART: RRR S1S2 no murmurs ABDOMEN: Soft NTND +BS. R fem line in place EXTREMITIES: 1+ radial & DP pulses palpated b/l. Left IO line in place. No peripheral edema. NEUROLOGICAL: Not arousable, pupils responsive to light with constriction equal and symmetric, response to painful stimuli,, no abnormal movements noted CBCD WBC 6.1 K/mm3 (4.0-10.0) 07/20/19 05:00 RBC 2.37 M/mm3 (4.00-5.60) L 07/20/19 05:00 Hgb 7.6 GM/dL (11.7-16.9) L 07/20/19 05:00 Hct 22.6 % (35.4-49) L 07/20/19 05:00 MCV 95.3 fl (80-96) 07/20/19 05:00 MCHC 33.4 g/dl (32.0-35.9) 07/20/19 05:00 RDW 15.7 % (11.9-15.9) 07/20/19 05:00 Plt Count 205 K/MM3 (134-434) 07/20/19 05:00 MPV 7.6 fl (7.5-11.1) 07/20/19 05:00 CMP Sodium 137 mmol/L (136-145) 07/20/19 05:00 Potassium 3.8 mmol/L (3.5-5.1) 07/20/19 05:00 Chloride 104 mmol/L (98-107) 07/20/19 05:00 Carbon Dioxide 27 mmol/L (21-32) 07/20/19 05:00 Anion Gap 5 MMOL/L (8-16) L 07/20/19 05:00 BUN 17.0 mg/dL (7-18) 07/20/19 05:00 Creatinine 0.9 mg/dL (0.55-1.3) 07/20/19 05:00 Random Glucose 127 mg/dL (74-106) H 07/20/19 05:00 Calcium 7.7 mg/dL (8.5-10.1) L 07/20/19 05:00 Total Bilirubin 0.4 mg/dL (0.2-1) 07/20/19 05:00 AST 76 U/L (15-37) H 07/20/19 05:00 ALT 52 U/L (13-61) 07/20/19 05:00 Alkaline Phosphatase 133 U/L (45-117) H 07/20/19 05:00 Total Protein 5.1 g/dl (6.4-8.2) L 07/20/19 05:00 Albumin 1.9 g/dl (3.4-5.0) L 07/20/19 05:00 CARDIAC ENZYMES Creatine Kinase 363 U/L (26-308) H 07/16/19 05:15 Troponin I < 0.02 ng/ml (0.00-0.05) 07/16/19 05:15 ASSESSMENT/PLAN: 74 y.o. M PMH prior cardiac arrest 11/2018, COPD on 4L home o2, a-flutter, pulm HTN, RADHIKA, HFpEF, HTN, HLD, CAD s/p RCA stent, medication noncompliance presented for cardiac arrest. According to , present at bedside, the patient was found down at home in a small pool of blood. is a doctor, noted the patient did not have a pulse and called EMS. EMS arrived within 10 mins and began resuscitative efforts w/ TRACY system but could not intubate in the field. On arrival to patient was in asystole, then PEA; patient received a total of 5 pushes epi, 1 x bicarb, ROSC achieved. Patient was hypotensive in ED, fem line placed, levo & amio gtt initiated. Intubated in ED. Spoke with patient's regarding future resuscitative efforts, now signed DNR paperwork , in chart. Head CT reviewed and showed no acute pathology. Neurology consulted due to concern regarding abnormal movements and possible decorticate positioning. Appreciate initial evaluation by Dr. Moreno, note reviewed. Patient remains on Keppra 500mg twice daily. During my evaluation, not on sedation, patient does demonstrate brainstem reflexes including pupillary response and per nurse is overbreathing the vent, on nailbed pressure movement is more consistent with withdrawal to painful stimuli, no abnormal movements noted during my evaluation. Repeated Head CT reviewed and demonstrated brain edema w/o evidence of subfalcine or inferior herniation. No hemorrhage or gross focal acute infarct. Residual mild soft tissue swelling/hematoma of scalp over L. forehead. Mentioned to resident possibility of mannitol, restarted. neurologically, no significant improvement thus far and not able to be extubated as of yet. If this continues, prognosis would be poor but will need to continue evaluate for the next few days. Wean went if able, continued. Neurologically without significant improvement thus far. Continued close monitoring in ICU. Neuro checks should be continued. Monitor cardiac status, remains on pressors, reduce as able. Critical care time 35 mins.
[2019-07-20] MEDS: PANTOPRAZOLE SODIUM 40 MG VIAL IVPUSH SCH (09:16)
[2019-07-20] MEDS: CEFTRIAXONE 1 GM in DEXTROSE 5%-WATER - 50 ML IVPB SCH (09:16)
[2019-07-20] MEDS: MUPIROCIN 2% TOPICAL OINTMENT FOR DECOLONIZATION NS SCH (09:17)
[2019-07-20] MEDS ORDERED: PT OWN MED DRAWER 7, Y5N ONE ×4 (09:27→20:57)
[2019-07-20] MEDS: CHLORHEXIDINE GLUCONATE 0.12% 15ML CUP MM SCH ×2 (09:28→21:16)
[2019-07-20] MEDS ORDERED: SODIUM PHOSPHATE - 15 MM in SODIUM CHLORIDE 250 ML IVPB ONE (09:30)
--- NOTE | 2019-07-20 12:34 | PN ---
Teaching Attending Note Name of Resident: Elsie Marinelli ATTENDING PHYSICIAN STATEMENT I saw and evaluated the patient. I reviewed the resident's note and discussed the case with the resident. I agree with the resident's findings and plan as documented. SUBJECTIVE: Pt seen and examined in the ICU. Remains intubated, unresponsive off sedation. On levophed and amiodarone gtts. Taking spontaneous breaths. Febrile overnight. Postures with noxious stimuli. OBJECTIVE: Vital Signs Period Temp Pulse Resp BP Sys/Govea Pulse Ox Last 24 Hr 99.8 F-101.2 F 68-75 17-29 114-147/48-60 99-100 Intake & Output 07/17/19 07/18/19 07/19/19 07/20/19 23:59 23:59 23:59 23:59 Intake Total 2796.6 3580 3075.2 1266 Output Total 170 2050 1400 1400 Balance 2626.6 1530 1675.2 -134 Weight 83.915 kg 87.861 kg 88.995 kg 88.768 kg Gen: intubated, unresponsive Heart: RRR Lung: decreased breath sounds at the bases Abd: soft, nontender Ext: no edema CBC, BMP 07/20/19 05:00 07/20/19 05:00 ABG Results ABG pH 7.36 (7.35-7.45) 07/19/19 06:00 ABG pCO2 at Pt Temp 48.0 mmHg (35-45) H 07/19/19 06:00 ABG pO2 at Pt Temp 138 mmHg (80-100) H 07/19/19 06:00 ABG HCO3 26.1 mmol/L (22-27) 07/19/19 06:00 ABG O2 Sat (Measured) 98.8 % (95-98) H 07/19/19 06:00 ABG O2 Content 10.7 % vol 07/19/19 06:00 ABG Base Excess 1.3 meq/l (-2-2) 07/19/19 06:00 Hepatic Panel Total Bilirubin 0.4 mg/dL (0.2-1) 07/20/19 05:00 AST 76 U/L (15-37) H 07/20/19 05:00 ALT 52 U/L (13-61) 07/20/19 05:00 Alkaline Phosphatase 133 U/L (45-117) H 07/20/19 05:00 Albumin 1.9 g/dl (3.4-5.0) L 07/20/19 05:00 Active Medications Acetaminophen (Tylenol Oral Solution -) 650 mg GT Q6H PRN PRN Reason: FEVER Last Admin: 07/20/19 01:43 Dose: 650 mg Chlorhexidine Gluconate (Peridex -) 15 ml MM BID JONH Last Admin: 07/20/19 09:28 Dose: 15 ml Heparin Sodium (Porcine) (Heparin -) 5,000 unit SQ TID JONH Last Admin: 07/20/19 05:37 Dose: 5,000 unit Norepinephrine Bitartrate 8, (000 mcg/ Dextrose) 500 mls @ 18.75 mls/hr IV TITR JONH; Protocol Last Admin: 07/20/19 05:38 Dose: 3 mcg/min, 11.25 mls/hr Amiodarone HCl/Dextrose (Nexterone 360 Mg/200 Ml Bag) 360 mg in 200 mls @ 16.667 mls/hr IVPB ASDIR JONH; Protocol Last Admin: 07/20/19 02:08 Dose: 16.667 mls/hr Sodium Chloride (Normal Saline -) 1,000 mls @ 83 mls/hr IV ASDIR JONH Last Admin: 07/20/19 05:38 Dose: 83 mls/hr Midazolam HCl 100 mg/ Sodium (Chloride) 100 mls @ 1 mls/hr IVPB TITR JONH; Protocol Last Admin: 07/20/19 08:00 Dose: Not Given Ceftriaxone Sodium 1 gm/ (Dextrose) 50 mls @ 100 mls/hr IVPB DAILY JONH; Protocol Last Admin: 07/20/19 09:16 Dose: 100 mls/hr Mannitol 50 gm/ Dextrose 333 mls @ 333 mls/hr IVPB Q8H-IV JONH Last Admin: 07/20/19 11:03 Dose: 333 mls/hr Sodium Phosphate 15 mm/ Sodium (Chloride) 255 mls @ 62.5 mls/hr IVPB ONCE ONE Stop: 07/20/19 13:34 Last Admin: 07/20/19 09:28 Dose: 62.5 mls/hr Insulin Aspart (Novolog Vial Sliding Scale -) 1 vial SQ TIDAC JONH; Protocol Last Admin: 07/20/19 11:03 Dose: Not Given Levetiracetam (Keppra Injection -) 500 mg IVPB 0600,1800 [facility] Last Admin: 07/20/19 05:37 Dose: 500 mg Mupirocin (Bactroban Ointment (For Decolonization) -) 1 applic NS BID [facility] Stop: 07/20/19 21:59 Last Admin: 07/20/19 09:17 Dose: 1 applic Pantoprazole Sodium (Protonix Iv) 40 mg IVPUSH DAILY [facility] Last Admin: 07/20/19 09:16 Dose: 40 mg ASSESSMENT AND PLAN: s/p Cardiopulmonary Arrest Likely Anoxic Encephalopathy Shock - r/o Septic r/o Pneumonia Bacteremia CAD LV Diastolic Dysfunction Pulmonary HTN Paroxysmal Atrial Fibrilation COPD Chronic Hypoxic Respiratory Failure HTN Hypercholesterolemia Obstructive Sleep Apnea Anemia - continue antibiotics - f/u cultures - hold all sedation to assess mental status - monitor neuro exam - continue amiodarone gtt - taper pressors to maintain MAP >65 - continue empiric antieplieptics - IVF - trend LFTs - enteral feeds - DVT/GI prophylaxis - prognosis guarded critical care time spent in reviewing chart, evaluating patient and formulating plan 35 min
--- NOTE | 2019-07-20 12:42 | PN ---
Progress Note, Physician History of Present Illness: Remains intubated, unresponsive off sedation. On levophed and amiodarone gtts remains in NSR. Taking spontaneous breaths. Febrile overnight. Postures with noxious stimuli. Started on mannitol. FIO2 50% PEEP 5. - Current Medication List Current Medications: Active Medications Acetaminophen (Tylenol Oral Solution -) 650 mg GT Q6H PRN PRN Reason: FEVER Last Admin: 07/20/19 01:43 Dose: 650 mg Chlorhexidine Gluconate (Peridex -) 15 ml MM BID JONH Last Admin: 07/20/19 09:28 Dose: 15 ml Heparin Sodium (Porcine) (Heparin -) 5,000 unit SQ TID JONH Last Admin: 07/20/19 05:37 Dose: 5,000 unit Norepinephrine Bitartrate 8, (000 mcg/ Dextrose) 500 mls @ 18.75 mls/hr IV TITR JONH; Protocol Last Admin: 07/20/19 05:38 Dose: 3 mcg/min, 11.25 mls/hr Amiodarone HCl/Dextrose (Nexterone 360 Mg/200 Ml Bag) 360 mg in 200 mls @ 16.667 mls/hr IVPB ASDIR JONH; Protocol Last Admin: 07/20/19 02:08 Dose: 16.667 mls/hr Sodium Chloride (Normal Saline -) 1,000 mls @ 83 mls/hr IV ASDIR JONH Last Admin: 07/20/19 05:38 Dose: 83 mls/hr Midazolam HCl 100 mg/ Sodium (Chloride) 100 mls @ 1 mls/hr IVPB TITR JONH; Protocol Last Admin: 07/20/19 08:00 Dose: Not Given Ceftriaxone Sodium 1 gm/ (Dextrose) 50 mls @ 100 mls/hr IVPB DAILY JONH; Protocol Last Admin: 07/20/19 09:16 Dose: 100 mls/hr Mannitol 50 gm/ Dextrose 333 mls @ 333 mls/hr IVPB Q8H-IV JONH Last Admin: 07/20/19 11:03 Dose: 333 mls/hr Sodium Phosphate 15 mm/ Sodium (Chloride) 255 mls @ 62.5 mls/hr IVPB ONCE ONE Stop: 07/20/19 13:34 Last Admin: 07/20/19 09:28 Dose: 62.5 mls/hr Insulin Aspart (Novolog Vial Sliding Scale -) 1 vial SQ TIDAC [facility]; Protocol Last Admin: 07/20/19 11:03 Dose: Not Given Levetiracetam (Keppra Injection -) 500 mg IVPB 0600,1800 [facility] Last Admin: 07/20/19 05:37 Dose: 500 mg Mupirocin (Bactroban Ointment (For Decolonization) -) 1 applic NS BID [facility] Stop: 07/20/19 21:59 Last Admin: 07/20/19 09:17 Dose: 1 applic Pantoprazole Sodium (Protonix Iv) 40 mg IVPUSH DAILY [facility] Last Admin: 07/20/19 09:16 Dose: 40 mg - Objective Vital Signs: Vital Signs Temperature 99.8 F H 07/20/19 12:00 Pulse Rate 69 07/20/19 12:00 Respiratory Rate 07/20/19 12:27 Blood Pressure 121/51 L 07/20/19 12:00 O2 Sat by Pulse Oximetry (%) 99 07/20/19 08:00 Cardiovascular: Yes: Regular Rate and Rhythm Respiratory: Yes: Mechanically Ventilated, Rhonchi Gastrointestinal: Yes: Normal Bowel Sounds, Soft, Abdomen, Obese Genitourinary: Yes: Shah Present Edema: Yes Edema: LLE: Trace, RLE: Trace Labs: CBC, BMP 07/20/19 05:00 07/20/19 05:00 INR, PTT INR 1.56 (0.83-1.09) H 07/16/19 05:15 - ....Imaging Chest X-ray: Report Reviewed (Increased congestion and effusions) Problem List - Problems (1) Cardiac arrest Code(s): I46.9 - CARDIAC ARREST, CAUSE UNSPECIFIED (2) CHF exacerbation Code(s): I50.9 - HEART FAILURE, UNSPECIFIED Qualifiers: Heart failure type: diastolic Qualified Code(s): I50.33 - Acute on chronic diastolic (congestive) heart failure (3) Coronary artery disease Code(s): I25.10 - ATHSCL HEART DISEASE OF [place] CORONARY ARTERY W/O ANG PCTRS Qualifiers: Coronary Disease-Associated Artery/Lesion type: redding artery [place] vs. transplanted heart: redding heart Associated angina: without angina Qualified Code(s): I25.10 - Atherosclerotic heart disease of [place] coronary artery without angina pectoris (4) Hypertrophic cardiomyopathy Code(s): I42.2 - OTHER HYPERTROPHIC CARDIOMYOPATHY (5) RADHIKA (obstructive sleep apnea) Code(s): G47.33 - OBSTRUCTIVE SLEEP APNEA (ADULT) (PEDIATRIC) (6) Pulmonary hypertension assoc with unclear multi-factorial mechanisms Code(s): I27.29 - OTHER SECONDARY PULMONARY HYPERTENSION (7) S/P right coronary artery (RCA) stent placement Code(s): Z95.5 - PRESENCE OF CORONARY ANGIOPLASTY IMPLANT AND GRAFT Assessment/Plan 07/15/2019 EchoL Normal LV sie with mild cLVG and normal LV fxn LVEF 60-65%, Grade I diastolic dysfunction, mid cavity obliteration w/o gradient, functional MS 2.2 MAD, mild MR, TR, MG 11 mmHg, no pericardial effusion 12/20/2018 Normal LV size and fn LVEF 60-65%, mid cavity obliteration with no gradient obtained, normal RV size and fxn, severe LAE, mild MR, TR 11/12/2018 R&LHc Elevated right-sided pressures, moderate pulm HTN, normal PVRI , elevated PCWP, elevated LVEDP, decreased cardiac output, 1 vessel CAD with occluded prox RCA filling via bridging collaterals, hyperdynamic systolic function 11/08/2018 Echo: Mod cLVH with normal systolic function LVEF 60-65%, grade II diastolic dysfunction with elevated filling pressures, hyperdynamic mid cavity with obliteration suggestive of mid cavity obstruction, resting left ventricular outflow tract gradient 25 mmHg increasing to 33 mmHg with Valsalva, mild LAE, normal RV size and fxn, mild-mod MR, mild TR RVSP 33 mmHg 09/22/2017 Dobutamine Myoview: Moderate size inferior perfusion defect wth mild ischemia, normal LVEF 88% 12/16/2018 LE US: No DVT bilaterally, moderate atherosclerosis w/o stenosis bilaterally 12/18/2018 HCT: No acute changes 1. Post asystolic arrest, previous h/o PEA arrest 2. Acute on chronic hypercapneic, hypoxemic respiratory failure with toxic metabolic encephalopathy 3. Acute on chronic diastolic heart failure, moderate functional MS and moderate pulmonary HTN 4. COPD on home O2 5. OSAS noncompliant with cpap 6. 1 vessel CAD h/o RCA stent with h/o demand ischemia 7. Hypertensive heart disease/HOCM of elderly 8. Paroxysmal AF/flutter->NSR ([id number]) off Eliquis 9. Hyperlipidemia 10. Sick euthyroid syndrome 11. CANDY resolved 12. Abnl LFTs 2/2 shock liver improved 13. R/o anoxic encephelopathy 14. Anemia PLAN: 1. Ventilator support per ABG, BD as needed, observe for neurologic recovery 2. Wean pressors to maintain MAP>65 mmHg, amio gtt with monitor LFTs 3. Empiric abx course f/u C&S 4. Diuresis as needed. Eplerenone, Toprol XL, Bumex, Lipitor pending hemodynamic and LFT stability 5. AC held for possible UGI bleed, stress-induced ulcers place on empiric IV PPI , enteral feeds
--- NOTE | 2019-07-20 12:48 | PN ---
Physical Exam: SUBJECTIVE: Patient seen and examined. No acute events overnight. OBJECTIVE: Vital Signs Period Temp Pulse Resp BP Sys/Govea Pulse Ox Last 24 Hr 99.8 F-101.2 F 68-75 17-29 114-147/48-60 99-100 GENERAL: not following commands. Intubated, not sedated HEAD: NC. Left periorbital soft tissue swelling w/ ecchymosis, no active bleeding EYES: Pupils ~3mm, sluggish accomodation to light of Right pupil, slow horizontal nystagmus, sclera anicteric, conjunctiva clear. EARS, NOSE, THROAT: Ears normal, nares patent. NECK: supple without lymphadenopathy, JVD, or masses. LUNGS: Mild coarse BS bilaterally. Vent 500, 16, 5, 50% HEART: Regular rate and rhythm, normal S1 and S2 without murmur, rub or gallop. ABDOMEN: Soft, nontender, not distended, normoactive bowel sounds, no guarding, no rebound. MUSCULOSKELETAL: No bony deformities UPPER EXTREMITIES: 2+ pulses, cool, well-perfused. No cyanosis. No clubbing. LOWER EXTREMITIES: 2+ pulses, cool, well-perfused. No calf tenderness. No peripheral edema. NEUROLOGICAL: Not responding to questioning or sternal rub. BUE posturing with pinching. Up-going toes with sharp stroking to plantar surfaces SKIN: cool, dry, normal turgor, no rashes or lesions noted. Laboratory Results - last 24 hr CBC, BMP 07/20/19 05:00 07/20/19 05:00 Active Medications Acetaminophen (Tylenol Oral Solution -) 650 mg GT Q6H PRN PRN Reason: FEVER Last Admin: 07/20/19 01:43 Dose: 650 mg Chlorhexidine Gluconate (Peridex -) 15 ml MM BID JONH Last Admin: 07/20/19 09:28 Dose: 15 ml Heparin Sodium (Porcine) (Heparin -) 5,000 unit SQ TID JONH Last Admin: 07/20/19 05:37 Dose: 5,000 unit Norepinephrine Bitartrate 8, (000 mcg/ Dextrose) 500 mls @ 18.75 mls/hr IV TITR JONH; Protocol Last Admin: 07/20/19 05:38 Dose: 3 mcg/min, 11.25 mls/hr Amiodarone HCl/Dextrose (Nexterone 360 Mg/200 Ml Bag) 360 mg in 200 mls @ 16.667 mls/hr IVPB ASDIR JON[facility]; Protocol Last Admin: 07/20/19 02:08 Dose: 16.667 mls/hr Sodium Chloride (Normal Saline -) 1,000 mls @ 83 mls/hr IV ASDIR JONH Last Admin: 07/20/19 05:38 Dose: 83 mls/hr Midazolam HCl 100 mg/ Sodium (Chloride) 100 mls @ 1 mls/hr IVPB TITR JONH; Protocol Last Admin: 07/20/19 08:00 Dose: Not Given Ceftriaxone Sodium 1 gm/ (Dextrose) 50 mls @ 100 mls/hr IVPB DAILY [facility]ON[facility]; Protocol Last Admin: 07/20/19 09:16 Dose: 100 mls/hr Mannitol 50 gm/ Dextrose 333 mls @ 333 mls/hr IVPB Q8H-IV JONH Last Admin: 07/20/19 11:03 Dose: 333 mls/hr Sodium Phosphate 15 mm/ Sodium (Chloride) 255 mls @ 62.5 mls/hr IVPB ONCE ONE Stop: 07/20/19 13:34 Last Admin: 07/20/19 09:28 Dose: 62.5 mls/hr Insulin Aspart (Novolog Vial Sliding Scale -) 1 vial SQ TIDAC [facility]; Protocol Last Admin: 07/20/19 11:03 Dose: Not Given Levetiracetam (Keppra Injection -) 500 mg IVPB 0600,1800 [facility] Last Admin: 07/20/19 05:37 Dose: 500 mg Mupirocin (Bactroban Ointment (For Decolonization) -) 1 applic NS BID [facility] Stop: 07/20/19 21:59 Last Admin: 07/20/19 09:17 Dose: 1 applic Pantoprazole Sodium (Protonix Iv) 40 mg IVPUSH DAILY [facility] Last Admin: 07/20/19 09:16 Dose: 40 mg ASSESSMENT/PLAN: Patient is a 73 year old M with PMH of COPD (4L O2), pulmonary HTN, RADHIKA, HFpEF(LVEF 60-65%, 12/20/18), moderate Aortic Stenosis, HTN, HLD, CAD s/p RCA DAVID (2003,2004,2018), pAFib(Eliquis), cardiac arrest(, November 2018) BIBA after being found down and pulseless in his home. Upon [facility]ED arrival, pt was found to be in asystole then PEA. ED sp Epi x5, bicarb; achieved ROSC. Intubated. Getting Levophed gtt, amiodarone gtt, MgSO4. Admitted to ICU for [id number]-[id number] care. Neuro -Metabolic encephalopathy --possibly 2/2 in-field hypoxia -Possible anoxic brain injury -CT Head (07/18/19): brain edema w/o herniation. Left forehead w/ scalp hematoma -Off sedation, pt unable to participate on neuro exam -Neuro (Dr. Duvall) consult: -Keppra BID -Mannitol to reduce brain edema Pulmonary -Respiratory Failure -- intubated -Chronic COPD -VBG (07/15/19): 7.08/98.9/<49/28.0/46.7 -CXR (07/18/19): progressive pulmonary and congestive findings -IV lasix 40mg once and decrease fluids Cardiovascular -Post-Cardiac Arrest(ROSC after epi x5, bicarb) -Troponin neg x1, fu repeats -BNP 1166 -Targeted Temperature Mgmt: goal Temp <36C for at least 24hs and to keep pt afeb -ice packs and cooling blanket PRN -Pressors: Levophed 3mg -Amiodarone gtt -Off sedation -MAP goal >65 -HOLD home Eliquis, Bumex, Metoprolol, Amiodarone PO, Eplerenone, Ezetimibe, Atorvastatin GI -Transaminitis --likely 2/2 to shock ---improving -AST/ALT: 144/130 -->98/68 -OGT in place -Tube feeds -NPO -Trend LFTs Renal -CANDY --2/2 to hypotension, resolved -Lactic acidemia, resolving -UA: neg LE, neg nitrite -Gentle IVF Heme/ID -Macrocytic anemia -Monitor H/H -Urine cx (07/15/19): NGTD -Blood cx (07/15/19): 1 of 2 bottle growing staphylococus Simulans -Blood cx (07/18/19): NGTD -ID([place]) consult: --First blood cx likley contaminant --cont empiric ceftriaxone --D/c'ed vancomycin --Likely neurogenic fevers FEN -NS @ 42ml/hr -TF: Osmolit DVT ppx -SQH LINES -ETT -OGT -RIJ -Shah CODE STATUS: DNR Dispo: We will continue to follow the patient. Thank you for this consultative opportunity. Visit type - Emergency Visit Emergency Visit: No - New Patient This patient is new to me today: No - Critical Care Critical Care patient: Yes Total Critical Care Time (in minutes): 45 Critical Care Statement: The care of this patient involved high complexity decision making to prevent further life threatening deterioration of the patient's condition and/or to evaluate & treat vital organ system(s) failure or risk of failure. ATTENDING PHYSICIAN STATEMENT I saw and evaluated the patient. I reviewed the resident's note and discussed the case with the resident. I agree with the resident's findings and plan as documented. SUBJECTIVE: OBJECTIVE: ASSESSMENT AND PLAN:
[2019-07-20] MEDS ORDERED: FUROSEMIDE 40 MG/4 ML INJECTABLE VIAL IVPUSH ONE (13:22)
[2019-07-20] MEDS ORDERED: FUROSEMIDE 40 MG/4 ML INJECTABLE VIAL ONE (13:25)
--- NOTE | 2019-07-20 14:28 | PN ---
Physical Exam: SUBJECTIVE: Patient seen and examined. Pt Intubated, sedated. Does withdraw to pain. Unresponsive, currently on pressors. Afebrile. OBJECTIVE: Vital Signs Period Temp Pulse Resp BP Sys/Govea Pulse Ox Last 24 Hr 99.6 F-101.2 F 68-75 17-29 114-147/48-60 99-100 GENERAL: Intubated, sedated. Does withdraw to pain. Unresponsive, currently on pressors HEAD: Normal with no signs of trauma. EYES: L eye hematoma from fall, L pupil reactive but sluggish, R pupil reactive but sluggish. Horizontal nystagmus seen LUNGS: Coarse breath sound bilaterally, ET intact + ventilated HEART: Regular rate and rhythm, S1, S2 ABDOMEN: Soft, decreased bowel sounds, nondistended. EXTREMITIES: No LE edema, Babinski sign positive b/l LE NEURO: Intubated, sedated. Does withdraw to pain. no cough or gag appreciated Laboratory Results - last 24 hr 07/19/19 07/20/19 07/20/19 16:48 05:00 05:00 WBC 6.1 RBC 2.37 L Hgb 7.6 L Hct 22.6 L MCV 95.3 MCH 31.8 MCHC 33.4 RDW 15.7 Plt Count 205 MPV 7.6 Sodium 137 Potassium 3.8 Chloride 104 Carbon Dioxide 27 Anion Gap 5 L BUN 17.0 Creatinine 0.9 Est GFR (CKD-EPI)AfAm 97.86 Est GFR (CKD-EPI)NonAf 84.43 POC Glucometer 118 Random Glucose 127 H Calcium 7.7 L Phosphorus 2.0 L Magnesium 2.2 Total Bilirubin 0.4 AST 76 H ALT 52 Alkaline Phosphatase 133 H Total Protein 5.1 L Albumin 1.9 L 07/20/19 07/20/19 05:54 11:01 WBC RBC Hgb Hct MCV MCH MCHC RDW Plt Count MPV Sodium Potassium Chloride Carbon Dioxide Anion Gap BUN Creatinine Est GFR (CKD-EPI)AfAm Est GFR (CKD-EPI)NonAf POC Glucometer 127 134 Random Glucose Calcium Phosphorus Magnesium Total Bilirubin AST ALT Alkaline Phosphatase Total Protein Albumin Active Medications Generic Name Dose Route Start Last Admin Trade Name Freq PRN Reason Stop Dose Admin Acetaminophen 650 mg 07/17/19 17:04 07/20/19 01:43 Tylenol Oral Solution - GT 650 mg Q6H PRN Administration FEVER Chlorhexidine Gluconate 15 ml 07/17/19 22:00 07/20/19 09:28 Peridex - MM 15 ml BID JONH Administration Heparin Sodium (Porcine) 5,000 unit 07/18/19 06:00 07/20/19 13:28 Heparin - SQ 5,000 unit TID JONH Administration Norepinephrine Bitartrate 8, 500 mls @ 18.75 mls/hr 07/15/19 01:15 07/20/19 13:53 000 mcg/ Dextrose IV 3 mcg/min TITR JONH 11.25 mls/hr Administration Protocol 5 MCG/MIN Amiodarone HCl/Dextrose 360 mg in 200 mls @ 16.667 mls/hr 07/15/19 01:30 02:08 Nexterone 360 Mg/200 Ml Bag IVPB 16.667 mls/hr ASDIR JONH Administration Protocol 0.5 MG/MIN Midazolam HCl 100 mg/ Sodium 100 mls @ 1 mls/hr 07/15/19 08:00 07/20/19 08:00 Chloride IVPB Not Given TITR JONH Protocol 1 MG/HR Ceftriaxone Sodium 1 gm/ 50 mls @ 100 mls/hr 07/16/19 10:00 07/20/19 09:16 Dextrose IVPB 100 mls/hr DAILY JONH Administration Protocol Mannitol 50 gm/ Dextrose 333 mls @ 333 mls/hr 07/20/19 05:00 07/20/19 11:03 IVPB 333 mls/hr Q8H-IV JONH Administration Sodium Chloride 1,000 mls @ 42 mls/hr 07/20/19 13:20 07/20/19 13:23 Normal Saline - IV 42 mls/hr ASDIR JONH Administration Insulin Aspart 1 vial 07/16/19 07:00 07/20/19 11:03 Novolog Vial Sliding Scale - SQ Not Given TIDAC JONH Protocol Levetiracetam 500 mg 07/16/19 06:00 07/20/19 05:37 Keppra Injection - IVPB 500 mg 0600,1800 JONH Administration Mupirocin 1 applic 07/15/19 22:00 07/20/19 09:17 Bactroban Ointment (For Decolonization) - NS 07/20/19 21:59 1 applic BID JONH Administration Pantoprazole Sodium 40 mg 07/15/19 10:00 07/20/19 09:16 Protonix Iv IVPUSH 40 mg DAILY JONH Administration ASSESSMENT/PLAN: 74 y/o M PMH cardiac arrest 11/2018, a-flutter on eliquis, COPD on 4L home o2, pulm HTN, RADHIKA, HFpEF, HTN, HLD, CAD s/p RCA stent, medication noncompliance presented s/p cardiac arrest #s/p Cardiac arrest s/p targeted temperature management on pressors to maintain MAP >65 AC mode of vent Blood cultures growing Staph coag neg- could be contaminated- pending r/p Cx Ceftriaxone 1 g Versed d/justen- all sedation held- to assess for mental status Extubated + on mannitol, if continues like this, prognosis is poor as per neuro Eliquis held due to suspected UGIB, stress ulcer ppx with PPI On Jevity enteral feeds Phosphorus repletion pending IVF I&O Pt is DNR Pending Family to make decision #Anoxic encephalopathy Then continue levetiracetam 500 mg q [address] [place] [address] CT head for evaluation of anoxic Brain injury- brain edema w/out evidence of subfalcine or inferior herniation, no intracranial hemorrhage or gross focal acute infract, no shift of midline structure. Residual mild soft tissue swelling /hematoma of the scalp over the left forehead. #Hx a-flutter on amiodarone drip Cardio recom holding Bumetanide, Eplerenone, Toprol XL, Lipitor #Anemia cont to monitor #CANDY now resolved #Transaminitis likely shock liver LFTs trending down continue to monitor #Hyperglycemia now resolved continue BGMs Insulin sliding scale #FEN IV NS @83cc/hr monitor lytes NPO #DVT ppx SCDs #GI ppx Protonix 40mg IV daily #Dispo: Pending family decision on compassionate extubation, will f/u Visit type - Emergency Visit Emergency Visit: Yes ED Registration Date: 07/15/19 Care time: The patient presented to the Emergency Department on the above date and was hospitalized for further evaluation of their emergent condition. - New Patient This patient is new to me today: Yes Date on this admission: 07/21/19 - Critical Care Critical Care patient: No - Discharge Referral Referred to [facility] Med [facility] No ATTENDING PHYSICIAN STATEMENT I saw and evaluated the patient. I reviewed the resident's note and discussed the case with the resident. I agree with the resident's findings and plan as documented. SUBJECTIVE: OBJECTIVE: ASSESSMENT AND PLAN:
--- NOTE | 2019-07-20 16:15 | PN ---
Teaching Attending Note Name of Resident: Taz Hernández ATTENDING PHYSICIAN STATEMENT I saw and evaluated the patient. I reviewed the resident's note and discussed the case with the resident. I agree with the resident's findings and plan as documented. SUBJECTIVE: Intubated/Mechanically Ventilated, unable to participate in medical interview. No fever/chills. OBJECTIVE: Still Febrile, BP maintained on Levophed. Off versed for now. Poorly responsive, withdraws from pain. Pupils equal and reactive but sluggish. Last Vital Signs Temp Pulse Resp BP Pulse Ox 99.6 F 69 24 H 130/55 L 99 07/20/19 14:00 07/20/19 14:00 07/20/19 14:00 07/20/19 14:00 07/20/19 08:00 HEART: S1, S2, RRR LUNGS: Intubated/Ventilated - good air entry bilaterally ABDOMEN: Soft, non-distended, hypoactive BS EXTREMITIES: Mild edema Laboratory Results - last 24 hr 07/19/19 07/20/19 07/20/19 16:48 05:00 05:00 WBC 6.1 RBC 2.37 L Hgb 7.6 L Hct 22.6 L MCV 95.3 MCH 31.8 MCHC 33.4 RDW 15.7 Plt Count 205 MPV 7.6 Sodium 137 Potassium 3.8 Chloride 104 Carbon Dioxide 27 Anion Gap 5 L BUN 17.0 Creatinine 0.9 Est GFR (CKD-EPI)AfAm 97.86 Est GFR (CKD-EPI)NonAf 84.43 POC Glucometer 118 Random Glucose 127 H Calcium 7.7 L Phosphorus 2.0 L Magnesium 2.2 Total Bilirubin 0.4 AST 76 H ALT 52 Alkaline Phosphatase 133 H Total Protein 5.1 L Albumin 1.9 L 07/20/19 07/20/19 05:54 11:01 WBC RBC Hgb Hct MCV MCH MCHC RDW Plt Count MPV Sodium Potassium Chloride Carbon Dioxide Anion Gap BUN Creatinine Est GFR (CKD-EPI)AfAm Est GFR (CKD-EPI)NonAf POC Glucometer 127 134 Random Glucose Calcium Phosphorus Magnesium Total Bilirubin AST ALT Alkaline Phosphatase Total Protein Albumin Current Medications Generic Name Dose Route Start Last Admin Trade Name Freq PRN Reason Stop Dose Admin Acetaminophen 650 mg 07/17/19 17:04 07/20/19 01:43 Tylenol Oral Solution - GT 650 mg Q6H PRN Administration FEVER Chlorhexidine Gluconate 15 ml 07/17/19 22:00 07/20/19 09:28 Peridex - MM 15 ml BID JONH Administration Heparin Sodium (Porcine) 5,000 unit 07/18/19 06:00 07/20/19 13:28 Heparin - SQ 5,000 unit TID JONH Administration Norepinephrine Bitartrate 8, 500 mls @ 18.75 mls/hr 07/15/19 01:15 07/20/19 13:53 000 mcg/ Dextrose IV 3 mcg/min TITR JONH 11.25 mls/hr Administration Protocol 5 MCG/MIN Amiodarone HCl/Dextrose 360 mg in 200 mls @ 16.667 mls/hr 07/15/19 01:30 02:08 Nexterone 360 Mg/200 Ml Bag IVPB 16.667 mls/hr ASDIR JONH Administration Protocol 0.5 MG/MIN Midazolam HCl 100 mg/ Sodium 100 mls @ 1 mls/hr 07/15/19 08:00 07/20/19 08:00 Chloride IVPB Not Given TITR JONH Protocol 1 MG/HR Ceftriaxone Sodium 1 gm/ 50 mls @ 100 mls/hr 07/16/19 10:00 07/20/19 09:16 Dextrose IVPB 100 mls/hr DAILY JONH Administration Protocol Mannitol 50 gm/ Dextrose 333 mls @ 333 mls/hr 07/20/19 05:00 07/20/19 11:03 IVPB 333 mls/hr Q8H-IV JONH Administration Sodium Chloride 1,000 mls @ 42 mls/hr 07/20/19 13:20 07/20/19 13:23 Normal Saline - IV 42 mls/hr ASDIR JONH Administration Insulin Aspart 1 vial 07/16/19 07:00 07/20/19 11:03 Novolog Vial Sliding Scale - SQ Not Given TIDAC JONH Protocol Levetiracetam 500 mg 07/16/19 06:00 07/20/19 05:37 Keppra Injection - IVPB 500 mg 0600,1800 JONH Administration Mupirocin 1 applic 07/15/19 22:00 07/20/19 09:17 Bactroban Ointment (For Decolonization) - NS 07/20/19 21:59 1 applic BID JONH Administration Pantoprazole Sodium 40 mg 07/15/19 10:00 07/20/19 09:16 Protonix Iv IVPUSH 40 mg DAILY JONH Administration Home Medications Medication Instructions Recorded Sertraline HCl [Zoloft] 100 mg PO DAILY 01/09/12 Albuterol Sulfate Inhaler - 1 - 2 puff IH PRN PRN MDD Q4-6 12/15/18 [Ventolin HFA Inhaler -] hours Atorvastatin Ca [Lipitor] 40 mg PO HS 12/15/18 Eplerenone 25 mg PO DAILY 12/15/18 Ezetimibe 10 mg PO DAILY 12/15/18 Lamotrigine [Lamictal] 25 mg PO DAILY 12/15/18 Metoprolol Succinate [Toprol Xl] 12.5 mg PO BID 12/15/18 Ranolazine [Ranexa] 1,000 mg PO BID 12/15/18 Fluticasone/Vilanterol [Breo 1 puff IN DAILY 12/16/18 Ellipta 200-25 Mcg INH] Amiodarone HCl 200 mg PO DAILY 05/29/19 Apixaban [Eliquis] 5 mg PO BID 05/29/19 Bumetanide [Bumex -] 1 mg PO BID 05/29/19 ASSESSMENT AND PLAN: 74 year old male with history of HTN, HLD, s/p cardiac arrest, CAD with stent, Atrial Flutter, chronic diastolic heart failure, chronic hypoxic respiratory failure, COPD, pulm HTN, RADHIKA who was brought to the ED after a cardiac arrest at home. 1. Acute on chronic hypoxic and hypercapneic respiratory failure s/p Cardiac Arrest with prolonged down-time Intubated/Ventilated. Management as per Head Silverman. Hx of PEA arrest. Unable to wean/extubate. 2. Septic ? Cardiogenic Shock s/p arrest Sec to Pneumonia, Staph simulans bacteremia Repeat Blood Cx negative. Vancomycin stopped. Continue Ceftriaxone. ID following. Ongoing fevers, possibly central. 3. Acute Anoxic Encephalopathy Poorly responsive off Versed Sedation Appears to withdraw to painful stimuli LEs. Cerebral edema on brain imaging, on Mannitol. Started on Keppra for seizure prophylaxis. 4. Paroxysmal atrial flutter - Continue Amiodarone drip. Anticoagulation held secondary to anemia. Previously on Eliquis. 5. HTN - Antihypertensives held secondary to shock. On Levophed. 6. Hx CAD s/p PCI/stent 7. CANDY - improved. 8. Hepatic Transaminitis - secondary to shock, improving. 9. CRF sec to COPD/Pul HTN - continue mechanical ventilation - no evidence of acute exacerbation COPD. 10. Hypophosphatemia - repleted. DVT Px - Heparin SQ GI Px - PPI Family aware of poor prognosis, consideration being given to terminal extubation. Currently DNR.
[2019-07-20] MEDS ORDERED: MIDAZOLAM IN 0.9 % SOD.CHLORID 1 MG/1 ML PLAST..BAG ONE (23:00)
[2019-07-21] MEDS: NOREPINEPHRINE BITARTRATE 8,000 MCG in DEXTROSE 5%-WATER - 492 ML IV SCH (01:50)
[2019-07-21] MEDS: MANNITOL IVPB SCH ×2 (01:50→10:54)
[2019-07-21] MEDS: WATER IVPB SCH ×2 (01:50→10:54)
[2019-07-21] MEDS: AMIODARONE IN DEXTROSE,ISO-OSM 360 MG/200 ML BAG IVPB SCH (01:50)
[2019-07-21] MEDS: DEXTROSE 5% IVPB SCH ×2 (01:50→10:54)
[2019-07-21] MEDS: HEPARIN NA (PORCINE) 5,000 UNITS/ML 1ML VIAL SQ SCH ×3 (05:22→22:04)
[2019-07-21] MEDS: levETIRAcetam 500 MG/5 ML INJECTION VIAL IVPB SCH ×2 (05:22→17:00)
[2019-07-21] MEDS: INSULIN SLIDING SCALE (NOVOLOG) 1 VIAL SQ SCH ×3 (06:03→16:49)
[2019-07-21 06:55] LABS: HEMATOCRIT 24.1 % (35.4-49); MCH 31.9 pg (25.7-33.7); MCHC 33.3 g/dl (32.0-35.9); MEAN CELL VOLUME 95.7 fl (80-96); MEAN PLT VOLUME 7.4 fl (7.5-11.1); PLATELET COUNT 200 K/MM3 (134-434); RBC 2.52 M/mm3 (4.00-5.60); WHITE BLOOD COUNT 7.9 K/mm3 (4.0-10.0)
[2019-07-21 07:57] LABS: ALBUMIN 1.9 g/dl (3.4-5.0); BILIRUBIN,TOTAL 0.5 mg/dL (0.2-1); BLOOD UREA NITROGEN 21.5 mg/dL (7-18); CALCIUM 7.9 mg/dL (8.5-10.1); CREATININE 1.2 mg/dL (0.55-1.3); MAGNESIUM 2.2 mg/dL (1.8-2.4); PHOSPHOROUS 3.2 mg/dL (2.5-4.9); POTASSIUM 3.9 mmol/L (3.5-5.1); TOT PROT 5.4 g/dl (6.4-8.2)
[2019-07-21] MEDS: MIDAZOLAM 100 MG in SODIUM CHLORIDE 100 ML IVPB SCH (08:00)
[2019-07-21] MEDS ORDERED: cefTRIAXone SODIUM 1 GM VIAL ONE (08:04)
[2019-07-21] MEDS ORDERED: DEXTROSE 5%-WATER - 50 ML IVPB ONE (08:04)
--- NOTE | 2019-07-21 08:22 | PN ---
Progress Note (short form) - Note Progress Note: Neurology CHIEF COMPLAINT: cardiac arrest PCP: dr. rodriguez HISTORY OF PRESENT ILLNESS: 74 y.o. M PMH prior cardiac arrest 11/2018, COPD on 4L home o2, a-flutter, pulm HTN, RADHIKA, HFpEF, HTN, HLD, CAD s/p RCA stent, medication noncompliance presented for cardiac arrest. According to , present at bedside, the patient was found down at home in a small pool of blood. is a doctor, noted the patient did not have a pulse and called EMS. EMS arrived within 10 mins and began resuscitative efforts w/ TRACY system but could not intubate in the field. On arrival to patient was in asystole, then PEA; patient received a total of 5 pushes epi, 1 x bicarb, ROSC achieved. Patient was hypotensive in ED, fem line placed, levo & amio gtt initiated. Intubated in ED. Spoke with patient's regarding future resuscitative efforts, now signed DNR paperwork , in chart. Head CT completed and showed no acute pathology. Neurology consulted due to concern regarding abnormal movements and possible decorticate positioning. Appreciate initial evaluation by Dr. Moreno, note reviewed. Patient remains on Keppra 500mg twice daily. During my evaluation, not on sedation, patient does demonstrate brainstem reflexes including pupillary response and per nurse is overbreathing the vent, no abnormal movements noted during my evaluation, not following commands or performing any purposeful movements. Repeated Head CT reviewed and demonstrated brain edema w/o evidence of subfalcine or inferior herniation. No hemorrhage or gross focal acute infarct. Residual mild soft tissue swelling/ hematoma of scalp over L. forehead. Mentioned to resident possibility of mannitol, restarted. neurologically, no significant improvement thus far and not able to be extubated as of yet. Discused with ICU attending who spoke with family and likely for compassionate extubation given lack of improvement or progress. Patient with previous cardiac arrest but this event was prolonged and seems devastating. Active Medications Acetaminophen (Tylenol Oral Solution -) 650 mg GT Q6H PRN PRN Reason: FEVER Last Admin: 07/20/19 01:43 Dose: 650 mg Chlorhexidine Gluconate (Peridex -) 15 ml MM BID JONH Last Admin: 07/20/19 21:16 Dose: 15 ml Heparin Sodium (Porcine) (Heparin -) 5,000 unit SQ TID JONH Last Admin: 07/21/19 05:22 Dose: 5,000 unit Norepinephrine Bitartrate 8, (000 mcg/ Dextrose) 500 mls @ 18.75 mls/hr IV TITR JONH; Protocol Last Titration: 07/21/19 06:20 Dose: 0 mcg/min, 0 mls/hr Amiodarone HCl/Dextrose (Nexterone 360 Mg/200 Ml Bag) 360 mg in 200 mls @ 16.667 mls/hr IVPB ASDIR JONH; Protocol Last Admin: 07/21/19 01:50 Dose: Not Given Midazolam HCl 100 mg/ Sodium (Chloride) 100 mls @ 1 mls/hr IVPB TITR JONH; Protocol Last Admin: 07/20/19 23:00 Dose: 2 mg/hr, 2 mls/hr Ceftriaxone Sodium 1 gm/ (Dextrose) 50 mls @ 100 mls/hr IVPB DAILY JONH; Protocol Last Admin: 07/20/19 09:16 Dose: 100 mls/hr Mannitol 50 gm/ Dextrose 333 mls @ 333 mls/hr IVPB Q8H-IV JONH Last Admin: 07/21/19 01:50 Dose: 333 mls/hr Sodium Chloride (Normal Saline -) 1,000 mls @ 42 mls/hr IV ASDIR JONH Last Admin: 07/21/19 00:00 Dose: 42 mls/hr Insulin Aspart (Novolog Vial Sliding Scale -) 1 vial SQ TIDAC JONH; Protocol Last Admin: 07/21/19 06:03 Dose: Not Given Levetiracetam (Keppra Injection -) 500 mg IVPB 0600,1800 JONH Last Admin: 07/21/19 05:22 Dose: 500 mg Pantoprazole Sodium (Protonix Iv) 40 mg IVPUSH DAILY JONH Last Admin: 07/20/19 09:16 Dose: 40 mg PHYSICAL EXAMINATION Vital Signs Period Temp Pulse Resp BP Sys/Govea Pulse Ox Last 24 Hr 98.5 F-100.2 F 69-75 13-25 121-148/51-70 92-95 GENERAL: intubated HEENT: Pupils ~2mm,rresponsive LUNGS: + vent sounds b/l HEART: RRR S1S2 no murmurs ABDOMEN: Soft NTND +BS. R fem line in place EXTREMITIES: 1+ radial & DP pulses palpated b/l. Left IO line in place. No peripheral edema. NEUROLOGICAL: Not arousable, pupils responsive to light with constriction equal and symmetric, response to painful stimuli,, no abnormal movements noted CBCD WBC 7.9 K/mm3 (4.0-10.0) 07/21/19 05:00 RBC 2.52 M/mm3 (4.00-5.60) L 07/21/19 05:00 Hgb 8.0 GM/dL (11.7-16.9) L 07/21/19 05:00 Hct 24.1 % (35.4-49) L 07/21/19 05:00 MCV 95.7 fl (80-96) 07/21/19 05:00 MCHC 33.3 g/dl (32.0-35.9) 07/21/19 05:00 RDW 16.0 % (11.9-15.9) H 07/21/19 05:00 Plt Count 200 K/MM3 (134-434) 07/21/19 05:00 MPV 7.4 fl (7.5-11.1) L 07/21/19 05:00 CMP Sodium 135 mmol/L (136-145) L 07/21/19 05:00 Potassium 3.9 mmol/L (3.5-5.1) 07/21/19 05:00 Chloride 102 mmol/L (98-107) 07/21/19 05:00 Carbon Dioxide 24 mmol/L (21-32) 07/21/19 05:00 Anion Gap 8 MMOL/L (8-16) 07/21/19 05:00 BUN 21.5 mg/dL (7-18) H 07/21/19 05:00 Creatinine 1.2 mg/dL (0.55-1.3) 07/21/19 05:00 Random Glucose 162 mg/dL (74-106) H 07/21/19 05:00 Calcium 7.9 mg/dL (8.5-10.1) L 07/21/19 05:00 Total Bilirubin 0.5 mg/dL (0.2-1) 07/21/19 05:00 AST 54 U/L (15-37) H 07/21/19 05:00 ALT 47 U/L (13-61) 07/21/19 05:00 Alkaline Phosphatase 164 U/L (45-117) H 07/21/19 05:00 Total Protein 5.4 g/dl (6.4-8.2) L 07/21/19 05:00 Albumin 1.9 g/dl (3.4-5.0) L 07/21/19 05:00 CARDIAC ENZYMES Creatine Kinase 363 U/L (26-308) H 07/16/19 05:15 Troponin I < 0.02 ng/ml (0.00-0.05) 07/16/19 05:15 ASSESSMENT/PLAN: 74 y.o. M PMH prior cardiac arrest 11/2018, COPD on 4L home o2, a-flutter, pulm HTN, RADHIKA, HFpEF, HTN, HLD, CAD s/p RCA stent, medication noncompliance presented for cardiac arrest. According to , present at bedside, the patient was found down at home in a small pool of blood. is a doctor, noted the patient did not have a pulse and called EMS. EMS arrived within 10 mins and began resuscitative efforts w/ TRACY system but could not intubate in the field. On arrival to patient was in asystole, then PEA; patient received a total of 5 pushes epi, 1 x bicarb, ROSC achieved. Patient was hypotensive in ED, fem line placed, levo & amio gtt initiated. Intubated in ED. Spoke with patient's regarding future resuscitative efforts, now signed DNR paperwork , in chart. Head CT reviewed and showed no acute pathology. Neurology consulted due to concern regarding abnormal movements and possible decorticate positioning. Appreciate initial evaluation by Dr. Moreno, note reviewed. Patient remains on Keppra 500mg twice daily. During my evaluation, not on sedation, patient does demonstrate brainstem reflexes including pupillary response and per nurse is overbreathing the vent, on nailbed pressure movement is more consistent with withdrawal to painful stimuli, no abnormal movements noted during my evaluation. Repeated Head CT reviewed and demonstrated brain edema w/o evidence of subfalcine or inferior herniation. No hemorrhage or gross focal acute infarct. Residual mild soft tissue swelling/hematoma of scalp over L. forehead. Mentioned to resident possibility of mannitol, restarted. neurologically, no significant improvement thus far and not able to be extubated as of yet. Discused with ICU attending who spoke with family and likely for compassionate extubation given lack of improvement or progress. Patient with previous cardiac arrest but this event was prolonged and seems devastating. Continued close monitoring in ICU. Neuro checks should be continued. Monitor cardiac status, remains on pressors, reduce as able. No objection to compassionate extubation if family decides this. Critical care time 35 mins.
[2019-07-21] MEDS: PANTOPRAZOLE SODIUM 40 MG VIAL IVPUSH SCH (09:18)
[2019-07-21] MEDS: CEFTRIAXONE 1 GM in DEXTROSE 5%-WATER - 50 ML IVPB SCH (09:18)
[2019-07-21] MEDS ORDERED: PT OWN MED DRAWER 7, Y5N ONE ×3 (09:42→22:02)
[2019-07-21] MEDS: CHLORHEXIDINE GLUCONATE 0.12% 15ML CUP MM SCH ×2 (09:45→22:05)
--- NOTE | 2019-07-21 10:19 | PN ---
Physical Exam: SUBJECTIVE: Patient seen and examined. Pt became tachypneic w/deep labored breathing overnight. Desatting in 80s. Pt was placed back on versed and increased FiO2 from 50 to 60%. OBJECTIVE: Vital Signs Period Temp Pulse Resp BP Sys/Govea Pulse Ox Last 24 Hr 98.3 F-99.9 F 69-75 13-25 121-148/51-70 92-99 GENERAL: not following commands. Intubated, sedated HEAD: NC. Left periorbital soft tissue swelling w/ ecchymosis, no active bleeding EYES: Pupils ~3mm, sluggish accomodation to light of Right pupil, slow horizontal nystagmus, sclera anicteric, conjunctiva clear. EARS, NOSE, THROAT: Ears normal, nares patent. NECK: supple without lymphadenopathy, JVD, or masses. LUNGS: Mild coarse BS bilaterally. Vent 500, 16, 5, 60% HEART: Regular rate and rhythm, normal S1 and S2 without murmur, rub or gallop. ABDOMEN: Soft, nontender, not distended, normoactive bowel sounds, no guarding, no rebound. MUSCULOSKELETAL: No bony deformities UPPER EXTREMITIES: 2+ pulses, cool, well-perfused. No cyanosis. No clubbing. LOWER EXTREMITIES: 2+ pulses, cool, well-perfused. No calf tenderness. No peripheral edema. NEUROLOGICAL: Not responding to questioning or sternal rub. BUE posturing with pinching. Up-going toes with sharp stroking to plantar surfaces SKIN: cool, dry, normal turgor, no rashes or lesions noted. Laboratory Results - last 24 hr CBC, BMP 07/21/19 05:00 07/21/19 05:00 Active Medications Acetaminophen (Tylenol Oral Solution -) 650 mg GT Q6H PRN PRN Reason: FEVER Last Admin: 07/20/19 01:43 Dose: 650 mg Chlorhexidine Gluconate (Peridex -) 15 ml MM BID JONH Last Admin: 07/21/19 09:45 Dose: 15 ml Heparin Sodium (Porcine) (Heparin -) 5,000 unit SQ TID JONH Last Admin: 07/21/19 05:22 Dose: 5,000 unit Norepinephrine Bitartrate 8, (000 mcg/ Dextrose) 500 mls @ 18.75 mls/hr IV TITR JONH; Protocol Last Titration: 07/21/19 06:20 Dose: 0 mcg/min, 0 mls/hr Amiodarone HCl/Dextrose (Nexterone 360 Mg/200 Ml Bag) 360 mg in 200 mls @ 16.667 mls/hr IVPB ASDIR JONH; Protocol Last Admin: 07/21/19 01:50 Dose: Not Given Midazolam HCl 100 mg/ Sodium (Chloride) 100 mls @ 1 mls/hr IVPB TITR JONH; Protocol Last Titration: 07/21/19 09:47 Dose: 0 mg/hr, 0 mls/hr Ceftriaxone Sodium 1 gm/ (Dextrose) 50 mls @ 100 mls/hr IVPB DAILY JONH; Protocol Last Admin: 07/21/19 09:18 Dose: 100 mls/hr Mannitol 50 gm/ Dextrose 333 mls @ 333 mls/hr IVPB Q8H-IV JONH Last Admin: 07/21/19 01:50 Dose: 333 mls/hr Sodium Chloride (Normal Saline -) 1,000 mls @ 42 mls/hr IV ASDIR JONH Last Admin: 07/21/19 00:00 Dose: 42 mls/hr Insulin Aspart (Novolog Vial Sliding Scale -) 1 vial SQ TIDAC JONH; Protocol Last Admin: 07/21/19 06:03 Dose: Not Given Levetiracetam (Keppra Injection -) 500 mg IVPB 0600,1800 JONH Last Admin: 07/21/19 05:22 Dose: 500 mg Pantoprazole Sodium (Protonix Iv) 40 mg IVPUSH DAILY JONH Last Admin: 07/21/19 09:18 Dose: 40 mg ASSESSMENT/PLAN: Patient is a 73 year old M with PMH of COPD (4L O2), pulmonary HTN, RADHIKA, HFpEF( LVEF 60-65%, 12/20/18), moderate Aortic Stenosis, HTN, HLD, CAD s/p RCA DAVID (2003 ,2004,2018), pAFib(Eliquis), cardiac arrest(, November 2018) BIBA after being found down and pulseless in his home. Upon [facility]-ED arrival, pt was found to be in asystole then PEA. ED sp Epi x5, bicarb; achieved ROSC. Intubated. Getting Levophed gtt, amiodarone gtt, MgSO4. Admitted to ICU for post-cardiac- arrest care. Neuro -Metabolic encephalopathy --possibly 2/2 in-field hypoxia -Possible anoxic brain injury -CT Head (07/18/19): brain edema w/o herniation. Left forehead w/ scalp hematoma -Placed on sedation overnight, will monitor off today. -Neuro (Dr. Duvall) consult: -Keppra BID -Mannitol to reduce brain edema Pulmonary -Respiratory Failure -- intubated -Chronic COPD -VBG (07/15/19): 7.08/98.9/<49/28.0/46.7 -CXR (07/18/19): progressive pulmonary and congestive findings -Pt desatting overnight likely 2/2 mucous plug -IV lasix 40mg once and decreased fluids Cardiovascular -Post-Cardiac Arrest(ROSC after epi x5, bicarb) -Troponin neg x1, fu repeats -BNP 1166 -Targeted Temperature Mgmt: goal Temp <36C for at least 24hs and to keep pt afeb -ice packs and cooling blanket PRN -Wean off levophed -Amiodarone gtt -Off sedation -MAP goal >65 -HOLD home Eliquis, Bumex, Metoprolol, Amiodarone PO, Eplerenone, Ezetimibe, Atorvastatin GI -Transaminitis --likely 2/2 to shock ---improving -AST/ALT: 144/130 -->98/68 -OGT in place -Tube feeds -NPO -Trend LFTs Renal -CANDY --2/2 to hypotension, resolved -Lactic acidemia, resolving -UA: neg LE, neg nitrite -Gentle IVF Heme/ID -Macrocytic anemia -Monitor H/H -Urine cx (07/15/19): NGTD -Blood cx (07/15/19): 1 of 2 bottle growing staphylococus Simulans -Blood cx (07/18/19): NGTD -ID([facility]) consult: --First blood cx likley contaminant --cont empiric ceftriaxone --D/c'ed vancomycin --Likely neurogenic fevers FEN -NS @ 42ml/hr -TF: Osmolit DVT ppx -SQH LINES -ETT -OGT -RIJ -Shah CODE STATUS: DNR Dispo: We will continue to follow the patient. Thank you for this consultative opportunity. Visit type - Emergency Visit Emergency Visit: No - New Patient This patient is new to me today: No - Critical Care Critical Care patient: Yes Total Critical Care Time (in minutes): 45 Critical Care Statement: The care of this patient involved high complexity decision making to prevent further life threatening deterioration of the patient 's condition and/or to evaluate & treat vital organ system(s) failure or risk of failure. ATTENDING PHYSICIAN STATEMENT I saw and evaluated the patient. I reviewed the resident's note and discussed the case with the resident. I agree with the resident's findings and plan as documented. SUBJECTIVE: OBJECTIVE: ASSESSMENT AND PLAN:
[2019-07-21] MEDS ORDERED: FUROSEMIDE 40 MG/4 ML INJECTABLE VIAL IVPUSH ONE (10:47)
--- NOTE | 2019-07-21 10:47 | PN ---
Progress Note, Physician History of Present Illness: Remains intubated, unresponsive off sedation. Off levophed, remains on amiodarone gtts remains in NSR. Taking spontaneous breaths. Low grade fevers overnight. Postures with noxious stimuli. Started on mannitol. FIO2 60% PEEP 5. - Current Medication List Current Medications: Active Medications Acetaminophen (Tylenol Oral Solution -) 650 mg GT Q6H PRN PRN Reason: FEVER Last Admin: 07/20/19 01:43 Dose: 650 mg Chlorhexidine Gluconate (Peridex -) 15 ml MM BID JONH Last Admin: 07/21/19 09:45 Dose: 15 ml Heparin Sodium (Porcine) (Heparin -) 5,000 unit SQ TID JONH Last Admin: 07/21/19 05:22 Dose: 5,000 unit Norepinephrine Bitartrate 8, (000 mcg/ Dextrose) 500 mls @ 18.75 mls/hr IV TITR JONH; Protocol Last Titration: 07/21/19 06:20 Dose: 0 mcg/min, 0 mls/hr Amiodarone HCl/Dextrose (Nexterone 360 Mg/200 Ml Bag) 360 mg in 200 mls @ 16.667 mls/hr IVPB ASDIR JONH; Protocol Last Admin: 07/21/19 01:50 Dose: Not Given Midazolam HCl 100 mg/ Sodium (Chloride) 100 mls @ 1 mls/hr IVPB TITR JONH; Protocol Last Titration: 07/21/19 09:47 Dose: 0 mg/hr, 0 mls/hr Ceftriaxone Sodium 1 gm/ (Dextrose) 50 mls @ 100 mls/hr IVPB DAILY JONH; Protocol Last Admin: 07/21/19 09:18 Dose: 100 mls/hr Mannitol 50 gm/ Dextrose 333 mls @ 333 mls/hr IVPB Q8H-IV JONH Last Admin: 07/21/19 01:50 Dose: 333 mls/hr Sodium Chloride (Normal Saline -) 1,000 mls @ 42 mls/hr IV ASDIR JONH Last Admin: 07/21/19 00:00 Dose: 42 mls/hr Insulin Aspart (Novolog Vial Sliding Scale -) 1 vial SQ TIDAC JONH; Protocol Last Admin: 07/21/19 06:03 Dose: Not Given Levetiracetam (Keppra Injection -) 500 mg IVPB 0600,1800 JONH Last Admin: 07/21/19 05:22 Dose: 500 mg Pantoprazole Sodium (Protonix Iv) 40 mg IVPUSH DAILY ON LICENSE OF [facility] Last Admin: 07/21/19 09:18 Dose: 40 mg - Objective Vital Signs: Vital Signs Temperature 98.3 F 07/21/19 10:00 Pulse Rate 69 07/21/19 10:00 Respiratory Rate 19 07/21/19 10:00 Blood Pressure 126/54 L 07/21/19 10:00 O2 Sat by Pulse Oximetry (%) 93 L 07/21/19 08:21 Constitutional: Yes: No Distress, Calm Neck: Yes: Supple Cardiovascular: Yes: Regular Rate and Rhythm Respiratory: Yes: Intubated, Mechanically Ventilated, Rhonchi Gastrointestinal: Yes: Normal Bowel Sounds, Soft, Abdomen, Obese Genitourinary: Yes: Shah Present Edema: Yes Edema: LLE: Trace, RLE: Trace Peripheral Pulses WNL: No Labs: CBC, BMP 07/21/19 05:00 07/21/19 05:00 INR, PTT INR 1.56 (0.83-1.09) H 07/16/19 05:15 - ....Imaging Chest X-ray: Report Reviewed (CHF and pleural effusion L>R) EKG: Report Reviewed (Tele: NSR) Problem List - Problems (1) Cardiac arrest Code(s): I46.9 - CARDIAC ARREST, CAUSE UNSPECIFIED (2) CHF exacerbation Code(s): I50.9 - HEART FAILURE, UNSPECIFIED Qualifiers: Heart failure type: diastolic Qualified Code(s): I50.33 - Acute on chronic diastolic (congestive) heart failure (3) Coronary artery disease Code(s): I25.10 - ATHSCL HEART DISEASE OF [place] CORONARY ARTERY W/O ANG PCTRS Qualifiers: Coronary Disease-Associated Artery/Lesion type: [place] artery [place] vs. transplanted heart: [place] heart Associated angina: without angina Qualified Code(s): I25.10 - Atherosclerotic heart disease of [place] coronary artery without angina pectoris (4) Hypertrophic cardiomyopathy Code(s): I42.2 - OTHER HYPERTROPHIC CARDIOMYOPATHY (5) RADHIKA (obstructive sleep apnea) Code(s): G47.33 - OBSTRUCTIVE SLEEP APNEA (ADULT) (PEDIATRIC) (6) Pulmonary hypertension assoc with unclear multi-factorial mechanisms Code(s): I27.29 - OTHER SECONDARY PULMONARY HYPERTENSION (7) S/P right coronary artery (RCA) stent placement Code(s): Z95.5 - PRESENCE OF CORONARY ANGIOPLASTY IMPLANT AND GRAFT Assessment/Plan 07/15/2019 EchoL Normal LV sie with mild cLVG and normal LV fxn LVEF 60-65%, Grade I diastolic dysfunction, mid cavity obliteration w/o gradient, functional MS 2.2 MAD, mild MR, TR, MG 11 mmHg, no pericardial effusion 12/20/2018 Normal LV size and fn LVEF 60-65%, mid cavity obliteration with no gradient obtained, normal RV size and fxn, severe LAE, mild MR, TR 11/12/2018 R&LHc Elevated right-sided pressures, moderate pulm HTN, normal PVRI , elevated PCWP, elevated LVEDP, decreased cardiac output, 1 vessel CAD with occluded prox RCA filling via bridging collaterals, hyperdynamic systolic function 11/08/2018 Echo: Mod cLVH with normal systolic function LVEF 60-65%, grade II diastolic dysfunction with elevated filling pressures, hyperdynamic mid cavity with obliteration suggestive of mid cavity obstruction, resting left ventricular outflow tract gradient 25 mmHg increasing to 33 mmHg with Valsalva, mild LAE, normal RV size and fxn, mild-mod MR, mild TR RVSP 33 mmHg 09/22/2017 Dobutamine Myoview: Moderate size inferior perfusion defect wth mild ischemia, normal LVEF 88% 12/16/2018 LE US: No DVT bilaterally, moderate atherosclerosis w/o stenosis bilaterally 12/18/2018 HCT: No acute changes 1. Post asystolic arrest, previous h/o PEA arrest 2. Acute on chronic hypercapneic, hypoxemic respiratory failure with toxic metabolic encephalopathy 3. Acute on chronic diastolic heart failure, moderate functional MS and moderate pulmonary HTN 4. COPD on home O2 5. OSAS noncompliant with cpap 6. 1 vessel CAD h/o RCA stent with h/o demand ischemia 7. Hypertensive heart disease/HOCM of elderly 8. Paroxysmal AF/flutter->NSR ([id number]) off Eliquis 9. Hyperlipidemia 10. Sick euthyroid syndrome 11. CANDY resolved 12. Abnl LFTs 2/2 shock liver improved 13. R/o anoxic encephelopathy 14. Anemia PLAN: 1. Ventilator support per ABG, BD as needed, observe for neurologic recovery 2. Wean pressors to maintain MAP>65 mmHg, change amio 200 qd with monitor LFTs 3. Empiric abx course f/u C&S 4. Diuresis as needed. Resume Eplerenone, Toprol XL, Bumex, Lipitor pending hemodynamic and LFT stability 5. AC held for possible UGI bleed, placed on sq heparin for DVT prophylaxis, stress-induced ulcers place on empiric IV PPI, enteral feeds
[2019-07-21] MEDS: METOPROLOL TARTRATE 25 MG TABLET (FP) PO SCH ×2 (11:52→22:05)
--- NOTE | 2019-07-21 11:52 | PN ---
Physical Exam: SUBJECTIVE: Patient seen and examined. Pt Intubated, sedated. Does withdraw to pain. Unresponsive, currently on pressors. Afebrile. OBJECTIVE: Vital Signs Period Temp Pulse Resp BP Sys/Govea Pulse Ox Last 24 Hr 98.3 F-99.9 F 69-75 13-25 121-148/51-70 92-99 GENERAL: Intubated, sedated. Does withdraw to pain. Unresponsive, currently on pressors HEAD: Normal with no signs of trauma. EYES: L eye hematoma from fall, L pupil reactive but sluggish, R pupil reactive but sluggish. Horizontal nystagmus seen LUNGS: Coarse breath sound bilaterally, ET intact + ventilated HEART: Regular rate and rhythm, S1, S2 ABDOMEN: Soft, decreased bowel sounds, nondistended. EXTREMITIES: No LE edema, Babinski sign positive b/l LE NEURO: Intubated, sedated. Does withdraw to pain. no cough or gag appreciated Laboratory Results - last 24 hr 07/20/19 07/20/19 07/21/19 16:51 20:54 05:00 WBC 7.9 RBC 2.52 L Hgb 8.0 L Hct 24.1 L MCV 95.7 MCH 31.9 MCHC 33.3 RDW 16.0 H Plt Count 200 MPV 7.4 L Sodium Potassium Chloride Carbon Dioxide Anion Gap BUN Creatinine Est GFR (CKD-EPI)AfAm Est GFR (CKD-EPI)NonAf POC Glucometer 152 139 Random Glucose Calcium Phosphorus Magnesium Total Bilirubin AST ALT Alkaline Phosphatase Total Protein Albumin 07/21/19 07/21/19 07/21/19 05:00 06:02 10:56 WBC RBC Hgb Hct MCV MCH MCHC RDW Plt Count MPV Sodium 135 L Potassium 3.9 Chloride 102 Carbon Dioxide 24 Anion Gap 8 BUN 21.5 H Creatinine 1.2 Est GFR (CKD-EPI)AfAm 69.11 Est GFR (CKD-EPI)NonAf 59.63 POC Glucometer 132 129 Random Glucose 162 H Calcium 7.9 L Phosphorus 3.2 Magnesium 2.2 Total Bilirubin 0.5 AST 54 H ALT 47 Alkaline Phosphatase 164 H Total Protein 5.4 L Albumin 1.9 L Active Medications Generic Name Dose Route Start Last Admin Trade Name Freq PRN Reason Stop Dose Admin Acetaminophen 650 mg 07/17/19 17:04 07/20/19 01:43 Tylenol Oral Solution - GT 650 mg Q6H PRN Administration FEVER Amiodarone HCl 200 mg 07/22/19 10:00 Cordarone - NGT DAILY [facility] Chlorhexidine Gluconate 15 ml 07/17/19 22:00 07/21/19 09:45 Peridex - MM 15 ml BID JONH Administration Heparin Sodium (Porcine) 5,000 unit 07/18/19 06:00 07/21/19 05:22 Heparin - SQ 5,000 unit TID JONH Administration Norepinephrine Bitartrate 8, 500 mls @ 18.75 mls/hr 07/15/19 01:15 07/21/19 06:20 000 mcg/ Dextrose IV 0 mcg/min TITR JONH 0 mls/hr Titration Protocol 5 MCG/MIN Midazolam HCl 100 mg/ Sodium 100 mls @ 1 mls/hr 07/15/19 08:00 07/21/19 09:47 Chloride IVPB 0 mg/hr TITR JONH 0 mls/hr Titration Protocol 1 MG/HR Ceftriaxone Sodium 1 gm/ 50 mls @ 100 mls/hr 07/16/19 10:00 07/21/19 09:18 Dextrose IVPB 100 mls/hr DAILY JONH Administration Protocol Sodium Chloride 1,000 mls @ 42 mls/hr 07/20/19 13:20 07/21/19 00:00 Normal Saline - IV 42 mls/hr ASDIR JONH Administration Insulin Aspart 1 vial 07/16/19 07:00 07/21/19 10:57 Novolog Vial Sliding Scale - SQ Not Given TIDAC [facility] Protocol Levetiracetam 500 mg 07/16/19 06:00 07/21/19 05:22 Keppra Injection - IVPB 500 mg 0600,1800 JONH Administration Metoprolol Tartrate 12.5 mg 07/21/19 11:30 Lopressor - PO BID JONH Pantoprazole Sodium 40 mg 07/15/19 10:00 07/21/19 09:18 Protonix Iv IVPUSH 40 mg DAILY JONH Administration ASSESSMENT/PLAN: 74 y/o M PMH cardiac arrest 11/2018, a-flutter on eliquis, COPD on 4L home o2, pulm HTN, RADHIKA, HFpEF, HTN, HLD, CAD s/p RCA stent, medication noncompliance presented s/p cardiac arrest #s/p Cardiac arrest s/p targeted temperature management on pressors to maintain MAP >65 AC mode of vent Blood cultures growing Staph coag neg- could be contaminated- r/p Cx neg Ceftriaxone 1 g Versed back on intubated + on mannitol, if continues like this, prognosis is poor as per neuro Eliquis held due to suspected UGIB, stress ulcer ppx with PPI On Jevity enteral feeds Phosphorus repletion IVF I&O Pt is DNR Pending Family to make decision, will contact #Anoxic encephalopathy Then continue levetiracetam 500 mg q [address] [place] [address] CT head for evaluation of anoxic Brain injury- brain edema w/out evidence of subfalcine or inferior herniation, no intracranial hemorrhage or gross focal acute infract, no shift of midline structure. Residual mild soft tissue swelling /hematoma of the scalp over the left forehead. #Hx a-flutter on amiodarone drip 200 Cardio recom holding Bumetanide, Eplerenone, Toprol XL, Lipitor #Anemia cont to monitor #CANDY now resolved #Transaminitis likely shock liver LFTs trending down continue to monitor #Hyperglycemia now resolved continue BGMs Insulin sliding scale #FEN IV NS @83cc/hr monitor lytes NPO #DVT ppx SCDs #GI ppx Protonix 40mg IV daily #Dispo: discussed with Dr. Gaming, as per family, plan for compassionate extubation tomorrow/ this weekend Visit type - Emergency Visit Emergency Visit: Yes ED Registration Date: 07/15/19 Care time: The patient presented to the Emergency Department on the above date and was hospitalized for further evaluation of their emergent condition. - New Patient This patient is new to me today: Yes Date on this admission: 07/22/19 - Critical Care Critical Care patient: No - Discharge Referral Referred to [facility] Med P.C.: No ATTENDING PHYSICIAN STATEMENT I saw and evaluated the patient. I reviewed the resident's note and discussed the case with the resident. I agree with the resident's findings and plan as documented. SUBJECTIVE: OBJECTIVE: ASSESSMENT AND PLAN:
--- NOTE | 2019-07-21 12:26 | PN ---
Teaching Attending Note Name of Resident: Elsie Marinelli ATTENDING PHYSICIAN STATEMENT I saw and evaluated the patient. I reviewed the resident's note and discussed the case with the resident. I agree with the resident's findings and plan as documented. SUBJECTIVE: Patient seen and examined in the ICU. Remains intubated, now on Versed drip. Started for tachypnea. OBJECTIVE: Intake & Output 07/18/19 07/19/19 07/20/19 07/21/19 23:59 23:59 23:59 23:59 Intake Total 3580 3075.2 4276.1 1699.3 Output Total 2050 1400 3275 750 Balance 1530 1675.2 1001.1 949.3 Weight 193 lb 11.2 oz 196 lb 3.2 oz 195 lb 11.2 oz 199 lb 5 oz Last Vital Signs Temp Pulse Resp BP Pulse Ox 98.0 F 71 19 137/59 L 93 L 07/21/19 12:00 07/21/19 12:00 07/21/19 12:00 07/21/19 12:00 07/21/19 08:21 Active Medications Acetaminophen (Tylenol Oral Solution -) 650 mg GT Q6H PRN PRN Reason: FEVER Last Admin: 07/20/19 01:43 Dose: 650 mg Amiodarone HCl (Cordarone -) 200 mg NGT DAILY [facility] Chlorhexidine Gluconate (Peridex -) 15 ml MM BID JONH Last Admin: 07/21/19 09:45 Dose: 15 ml Heparin Sodium (Porcine) (Heparin -) 5,000 unit SQ TID JONH Last Admin: 07/21/19 05:22 Dose: 5,000 unit Norepinephrine Bitartrate 8, (000 mcg/ Dextrose) 500 mls @ 18.75 mls/hr IV TITR JONH; Protocol Last Titration: 07/21/19 06:20 Dose: 0 mcg/min, 0 mls/hr Midazolam HCl 100 mg/ Sodium (Chloride) 100 mls @ 1 mls/hr IVPB TITR JONH; Protocol Last Titration: 07/21/19 09:47 Dose: 0 mg/hr, 0 mls/hr Ceftriaxone Sodium 1 gm/ (Dextrose) 50 mls @ 100 mls/hr IVPB DAILY [facility]; Protocol Last Admin: 07/21/19 09:18 Dose: 100 mls/hr Sodium Chloride (Normal Saline -) 1,000 mls @ 42 mls/hr IV ASDIR [facility] Last Admin: 07/21/19 00:00 Dose: 42 mls/hr Insulin Aspart (Novolog Vial Sliding Scale -) 1 vial SQ TIDAC [facility]; Protocol Last Admin: 07/21/19 10:57 Dose: Not Given Levetiracetam (Keppra Injection -) 500 mg IVPB 0600,1800 [facility] Last Admin: 07/21/19 05:22 Dose: 500 mg Metoprolol Tartrate (Lopressor -) 12.5 mg PO BID [facility] Last Admin: 07/21/19 11:52 Dose: 12.5 mg Pantoprazole Sodium (Protonix Iv) 40 mg IVPUSH DAILY [facility] Last Admin: 07/21/19 09:18 Dose: 40 mg Gen: intubated, unresponsive Heart: RRR Lung: decreased breath sounds at the bases Abd: soft, nontender Ext: no edema Laboratory Results - last 24 hr 07/20/19 07/20/19 07/21/19 16:51 20:54 05:00 WBC 7.9 RBC 2.52 L Hgb 8.0 L Hct 24.1 L MCV 95.7 MCH 31.9 MCHC 33.3 RDW 16.0 H Plt Count 200 MPV 7.4 L Sodium Potassium Chloride Carbon Dioxide Anion Gap BUN Creatinine Est GFR (CKD-EPI)AfAm Est GFR (CKD-EPI)NonAf POC Glucometer 152 139 Random Glucose Calcium Phosphorus Magnesium Total Bilirubin AST ALT Alkaline Phosphatase Total Protein Albumin 07/21/19 07/21/19 07/21/19 05:00 06:02 10:56 WBC RBC Hgb Hct MCV MCH MCHC RDW Plt Count MPV Sodium 135 L Potassium 3.9 Chloride 102 Carbon Dioxide 24 Anion Gap 8 BUN 21.5 H Creatinine 1.2 Est GFR (CKD-EPI)AfAm 69.11 Est GFR (CKD-EPI)NonAf 59.63 POC Glucometer 132 129 Random Glucose 162 H Calcium 7.9 L Phosphorus 3.2 Magnesium 2.2 Total Bilirubin 0.5 AST 54 H ALT 47 Alkaline Phosphatase 164 H Total Protein 5.4 L Albumin 1.9 L ASSESSMENT AND PLAN: s/p Cardiopulmonary Arrest Likely Anoxic Encephalopathy Shock - r/o Septic r/o Pneumonia Bacteremia CAD LV Diastolic Dysfunction Pulmonary HTN Paroxysmal Atrial Fibrilation COPD Chronic Hypoxic Respiratory Failure HTN Hypercholesterolemia Obstructive Sleep Apnea Anemia - continue antibiotics - hold all sedation to assess mental status - monitor neuro exam - continue amiodarone gtt - taper pressors to maintain MAP >65 - continue empiric antieplieptics - IVF - trend LFTs - enteral feeds - DVT/GI prophylaxis - prognosis guarded Spoke with . Likely for compassionate extubation this weekend. Dr Gaming Critical care time spent in reviewing chart, evaluating patient and formulating plan 36 min
[2019-07-21] MEDS: SODIUM CHLORIDE 1,000 ML IV SCH ×2 (13:20)
[2019-07-21] MEDS ORDERED: ARTIFICIAL TEARS (POLYVINYL ALCOHOL) OPTH DROPS OU SCH (14:15)
[2019-07-21] MEDS: ARTIFICIAL TEARS (POLYVINYL ALCOHOL) OPTH DROPS OU PRN ×2 (15:30→17:30)
--- NOTE | 2019-07-21 15:31 | PN ---
Teaching Attending Note Name of Resident: Taz Hernández ATTENDING PHYSICIAN STATEMENT I saw and evaluated the patient. I reviewed the resident's note and discussed the case with the resident. I agree with the resident's findings and plan as documented. SUBJECTIVE: Intubated/Mechanically Ventilated, unable to participate in medical interview. No fever/chills. OBJECTIVE: Fevers resolved overnight, Levophed weaned off. Placed back on Levophed. Poorly responsive, withdraws from pain. Pupils equal and reactive. Brainstem reflexes intact. No abnormal posturing. Last Vital Signs Temp Pulse Resp BP Pulse Ox 98.3 F 72 24 H 130/57 L 93 L 07/21/19 14:00 07/21/19 14:00 07/21/19 14:00 07/21/19 14:00 07/21/19 08:21 HEART: S1, S2, RRR LUNGS: Intubated/Ventilated - good air entry bilaterally ABDOMEN: Soft, non-distended, hypoactive BS EXTREMITIES: Mild edema Laboratory Results - last 24 hr 07/20/19 07/20/19 07/21/19 16:51 20:54 05:00 WBC 7.9 RBC 2.52 L Hgb 8.0 L Hct 24.1 L MCV 95.7 MCH 31.9 MCHC 33.3 RDW 16.0 H Plt Count 200 MPV 7.4 L Sodium Potassium Chloride Carbon Dioxide Anion Gap BUN Creatinine Est GFR (CKD-EPI)AfAm Est GFR (CKD-EPI)NonAf POC Glucometer 152 139 Random Glucose Calcium Phosphorus Magnesium Total Bilirubin AST ALT Alkaline Phosphatase Total Protein Albumin 07/21/19 07/21/19 07/21/19 05:00 06:02 10:56 WBC RBC Hgb Hct MCV MCH MCHC RDW Plt Count MPV Sodium 135 L Potassium 3.9 Chloride 102 Carbon Dioxide 24 Anion Gap 8 BUN 21.5 H Creatinine 1.2 Est GFR (CKD-EPI)AfAm 69.11 Est GFR (CKD-EPI)NonAf 59.63 POC Glucometer 132 129 Random Glucose 162 H Calcium 7.9 L Phosphorus 3.2 Magnesium 2.2 Total Bilirubin 0.5 AST 54 H ALT 47 Alkaline Phosphatase 164 H Total Protein 5.4 L Albumin 1.9 L Current Medications Generic Name Dose Route Start Last Admin Trade Name Freq PRN Reason Stop Dose Admin Acetaminophen 650 mg 07/17/19 17:04 07/20/19 01:43 Tylenol Oral Solution - GT 650 mg Q6H PRN Administration FEVER Amiodarone HCl 200 mg 07/22/19 10:00 Cordarone - NGT DAILY JONH Artificial Tears 1 drop 07/21/19 15:14 Artificial Tears OU Q2H PRN DRY EYES Chlorhexidine Gluconate 15 ml 07/17/19 22:00 07/21/19 09:45 Peridex - MM 15 ml BID JONH Administration Heparin Sodium (Porcine) 5,000 unit 07/18/19 06:00 07/21/19 13:22 Heparin - SQ 5,000 unit TID JONH Administration Norepinephrine Bitartrate 8, 500 mls @ 18.75 mls/hr 07/15/19 01:15 07/21/19 06:20 000 mcg/ Dextrose IV 0 mcg/min TITR JONH 0 mls/hr Titration Protocol 5 MCG/MIN Midazolam HCl 100 mg/ Sodium 100 mls @ 1 mls/hr 07/15/19 08:00 07/21/19 09:47 Chloride IVPB 0 mg/hr TITR JONH 0 mls/hr Titration Protocol 1 MG/HR Ceftriaxone Sodium 1 gm/ 50 mls @ 100 mls/hr 07/16/19 10:00 07/21/19 09:18 Dextrose IVPB 100 mls/hr DAILY JONH Administration Protocol Sodium Chloride 1,000 mls @ 42 mls/hr 07/20/19 13:20 07/21/19 13:20 Normal Saline - IV 42 mls/hr ASDIR JONH Administration Insulin Aspart 1 vial 07/16/19 07:00 07/21/19 10:57 Novolog Vial Sliding Scale - SQ Not Given TIDAC [facility] Protocol Levetiracetam 500 mg 07/16/19 06:00 07/21/19 05:22 Keppra Injection - IVPB 500 mg 0600,1800 JONH Administration Metoprolol Tartrate 12.5 mg 07/21/19 11:30 07/21/19 11:52 Lopressor - PO 12.5 mg BID JONH Administration Pantoprazole Sodium 40 mg 07/15/19 10:00 07/21/19 09:18 Protonix Iv IVPUSH 40 mg DAILY JONH Administration Home Medications Medication Instructions Recorded Sertraline HCl [Zoloft] 100 mg PO DAILY 01/09/12 Albuterol Sulfate Inhaler - 1 - 2 puff IH PRN PRN MDD Q4-6 12/15/18 [Ventolin HFA Inhaler -] hours Atorvastatin Ca [Lipitor] 40 mg PO HS 12/15/18 Eplerenone 25 mg PO DAILY 12/15/18 Ezetimibe 10 mg PO DAILY 12/15/18 Lamotrigine [Lamictal] 25 mg PO DAILY 12/15/18 Metoprolol Succinate [Toprol Xl] 12.5 mg PO BID 12/15/18 Ranolazine [Ranexa] 1,000 mg PO BID 12/15/18 Fluticasone/Vilanterol [Breo 1 puff IN DAILY 12/16/18 Ellipta 200-25 Mcg INH] Amiodarone HCl 200 mg PO DAILY 05/29/19 Apixaban [Eliquis] 5 mg PO BID 05/29/19 Bumetanide [Bumex -] 1 mg PO BID 05/29/19 ASSESSMENT AND PLAN: 74 year old male with history of HTN, HLD, s/p cardiac arrest, CAD with stent, Atrial Flutter, chronic diastolic heart failure, chronic hypoxic respiratory failure, COPD, pulm HTN, RADHIKA who was brought to the ED after a cardiac arrest at home. 1. Acute on chronic Hypoxic and Hypercapneic Respiratory Failure s/p Cardiac Arrest with prolonged down-time Intubated/Ventilated. Management as per Wilderness Guide. Hx of PEA arrest. Unable to wean/extubate. For consideration for compassionate extubation 2. Septic ? Cardiogenic Shock s/p arrest Sec to Pneumonia, Staph simulans bacteremia Repeat Blood Cx negative. Vancomycin stopped. Continue Ceftriaxone. ID following. Fevers resolving ?central due to cerebral edema. 3. Acute Anoxic Encephalopathy Poorly responsive off Versed Sedation Appears to withdraw to painful stimuli LEs. Brainstem reflexes intact. Cerebral edema on brain imaging, no herniation. On Mannitol. Started on Keppra for seizure prophylaxis. 4. Paroxysmal atrial flutter - Amiodarone drip transitioned to 200mg via NGT. Anticoagulation held secondary to anemia. Previously on Eliquis. 5. HTN - Antihypertensives held secondary to shock. Just weaned off Levophed. 6. Hx CAD s/p PCI/stent 7. CANDY - improved. 8. Hepatic Transaminitis - secondary to shock, improving. 9. CRF sec to COPD/Pul HTN - continue mechanical ventilation - no evidence of acute exacerbation COPD. 10. Hypophosphatemia - repleted. DVT Px - Heparin SQ GI Px - PPI Nutrition - via NGT Family aware of poor prognosis, consideration being given to terminal extubation. Wilderness Guide in discussion with family. Currently DNR.
[2019-07-22] MEDS: ACETAMINOPHEN 650 MG/20.3 ML ORAL SOLUTION (CUPS) GT PRN ×3 (03:32→21:02)
[2019-07-22] MEDS: levETIRAcetam 500 MG/5 ML INJECTION VIAL IVPB SCH ×2 (06:17→18:27)
[2019-07-22] MEDS: HEPARIN NA (PORCINE) 5,000 UNITS/ML 1ML VIAL SQ SCH ×3 (06:17→23:04)
[2019-07-22] MEDS: INSULIN SLIDING SCALE (NOVOLOG) 1 VIAL SQ SCH ×3 (06:26→17:00)
[2019-07-22 06:35] LABS: BASO % 0.5 % (0-2.0); EOS % 2.3 % (0-4.5); HEMATOCRIT 23.5 % (35.4-49); HEMOGLOBIN 7.8 GM/dL (11.7-16.9); LYMPH % 3.7 % (8-40); MCH 31.9 pg (25.7-33.7); MEAN CELL VOLUME 96.6 fl (80-96); MEAN PLT VOLUME 8.2 fl (7.5-11.1); MONO % 8.9 % (3.8-10.2); NEUT % 84.6 % (42.8-82.8); PLATELET COUNT 215 K/MM3 (134-434); RBC 2.43 M/mm3 (4.00-5.60); RDW 15.6 % (11.9-15.9); WHITE BLOOD COUNT 7.9 K/mm3 (4.0-10.0)
[2019-07-22 06:53] LABS: ALBUMIN 1.8 g/dl (3.4-5.0); BILIRUBIN,TOTAL 0.3 mg/dL (0.2-1); BLOOD UREA NITROGEN 35.5 mg/dL (7-18); CALCIUM 7.6 mg/dL (8.5-10.1); CREATININE 2.4 mg/dL (0.55-1.3); MAGNESIUM 2.2 mg/dL (1.8-2.4); PHOSPHOROUS 4.2 mg/dL (2.5-4.9); POTASSIUM 4.5 mmol/L (3.5-5.1); TOT PROT 5.2 g/dl (6.4-8.2)
--- NOTE | 2019-07-22 08:27 | PN ---
Progress Note (short form) - Note Progress Note: Neurology CHIEF COMPLAINT: cardiac arrest PCP: dr. rodriguez HISTORY OF PRESENT ILLNESS: 74 y.o. M PMH prior cardiac arrest 11/2018, COPD on 4L home o2, a-flutter, pulm HTN, RADHIKA, HFpEF, HTN, HLD, CAD s/p RCA stent, medication noncompliance presented for cardiac arrest. According to , present at bedside, the patient was found down at home in a small pool of blood. is a doctor, noted the patient did not have a pulse and called EMS. EMS arrived within 10 mins and began resuscitative efforts w/ TRACY system but could not intubate in the field. On arrival to patient was in asystole, then PEA; patient received a total of 5 pushes epi, 1 x bicarb, ROSC achieved. Patient was hypotensive in ED, fem line placed, levo & amio gtt initiated. Intubated in ED. Spoke with patient's regarding future resuscitative efforts, now signed DNR paperwork , in chart. Head CT completed and showed no acute pathology. Neurology consulted due to concern regarding abnormal movements and possible decorticate positioning. Appreciate initial evaluation by Dr. Moreno, note reviewed. Patient remains on Keppra 500mg twice daily. During my evaluation, not on sedation, patient does demonstrate brainstem reflexes including pupillary response and per nurse is overbreathing the vent, no abnormal movements noted during my evaluation, not following commands or performing any purposeful movements. Repeated Head CT reviewed and demonstrated brain edema w/o evidence of subfalcine or inferior herniation. No hemorrhage or gross focal acute infarct. Residual mild soft tissue swelling/ hematoma of scalp over L. forehead. Remains on mannito but no significant improvement thus far and not able to be extubated as of yet. Patient likely for compassionate extubation in light of his lack of improvement despite all measures above. I would not be in objection of thisand defer to ICU attending and family for ultimate goals of care. Active Medications Acetaminophen (Tylenol Oral Solution -) 650 mg GT Q6H PRN PRN Reason: FEVER Last Admin: 07/22/19 03:32 Dose: 650 mg Amiodarone HCl (Cordarone -) 200 mg NGT DAILY [facility] Artificial Tears (Artificial Tears) 1 drop OU Q2H PRN PRN Reason: DRY EYES Last Admin: 07/21/19 17:30 Dose: 1 drop Chlorhexidine Gluconate (Peridex -) 15 ml MM BID [facility] Last Admin: 07/21/19 22:05 Dose: 15 ml Heparin Sodium (Porcine) (Heparin -) 5,000 unit SQ TID [facility] Last Admin: 07/22/19 06:17 Dose: 5,000 unit Ceftriaxone Sodium 1 gm/ (Dextrose) 50 mls @ 100 mls/hr IVPB DAILY [facility]; Protocol Last Admin: 07/21/19 09:18 Dose: 100 mls/hr Sodium Chloride (Normal Saline -) 1,000 mls @ 42 mls/hr IV ASDIR [facility] Last Admin: 07/21/19 13:20 Dose: 42 mls/hr Insulin Aspart (Novolog Vial Sliding Scale -) 1 vial SQ TIDAC [facility]; Protocol Last Admin: 07/22/19 06:26 Dose: Not Given Levetiracetam (Keppra Injection -) 500 mg IVPB 0600,1800 [facility] Last Admin: 07/22/19 06:17 Dose: 500 mg Metoprolol Tartrate (Lopressor -) 12.5 mg PO BID [facility] Last Admin: 07/21/19 22:05 Dose: 12.5 mg Pantoprazole Sodium (Protonix Iv) 40 mg IVPUSH DAILY [facility] Last Admin: 07/21/19 09:18 Dose: 40 mg PHYSICAL EXAMINATION Vital Signs Period Temp Pulse Resp BP Sys/Govea Pulse Ox Last 24 Hr 98.0 F-100.9 F 66-72 19-29 113-137/49-60 90-91 GENERAL: intubated HEENT: Pupils ~2mm,rresponsive LUNGS: + vent sounds b/l HEART: RRR S1S2 no murmurs ABDOMEN: Soft NTND +BS. R fem line in place EXTREMITIES: 1+ radial & DP pulses palpated b/l. Left IO line in place. No peripheral edema. NEUROLOGICAL: Not arousable, pupils responsive to light with constriction equal and symmetric, response to painful stimuli,, no abnormal movements noted CBCD WBC 7.9 K/mm3 (4.0-10.0) 07/22/19 05:00 RBC 2.43 M/mm3 (4.00-5.60) L 07/22/19 05:00 Hgb 7.8 GM/dL (11.7-16.9) L 07/22/19 05:00 Hct 23.5 % (35.4-49) L 07/22/19 05:00 MCV 96.6 fl (80-96) H 07/22/19 05:00 MCHC 33.0 g/dl (32.0-35.9) 07/22/19 05:00 RDW 15.6 % (11.9-15.9) 07/22/19 05:00 Plt Count 215 K/MM3 (134-434) 07/22/19 05:00 MPV 8.2 fl (7.5-11.1) D 07/22/19 05:00 CMP Sodium 133 mmol/L (136-145) L 07/22/19 05:00 Potassium 4.5 mmol/L (3.5-5.1) 07/22/19 05:00 Chloride 101 mmol/L (98-107) 07/22/19 05:00 Carbon Dioxide 26 mmol/L (21-32) 07/22/19 05:00 Anion Gap 7 MMOL/L (8-16) L 07/22/19 05:00 BUN 35.5 mg/dL (7-18) H 07/22/19 05:00 Creatinine 2.4 mg/dL (0.55-1.3) H 07/22/19 05:00 Random Glucose 149 mg/dL (74-106) H 07/22/19 05:00 Calcium 7.6 mg/dL (8.5-10.1) L 07/22/19 05:00 Total Bilirubin 0.3 mg/dL (0.2-1) 07/22/19 05:00 AST 44 U/L (15-37) H 07/22/19 05:00 ALT 40 U/L (13-61) 07/22/19 05:00 Alkaline Phosphatase 169 U/L (45-117) H 07/22/19 05:00 Total Protein 5.2 g/dl (6.4-8.2) L 07/22/19 05:00 Albumin 1.8 g/dl (3.4-5.0) L 07/22/19 05:00 CARDIAC ENZYMES Creatine Kinase 363 U/L (26-308) H 07/16/19 05:15 Troponin I < 0.02 ng/ml (0.00-0.05) 07/16/19 05:15 ASSESSMENT/PLAN: 74 y.o. M PMH prior cardiac arrest 11/2018, COPD on 4L home o2, a-flutter, pulm HTN, RADHIKA, HFpEF, HTN, HLD, CAD s/p RCA stent, medication noncompliance presented for cardiac arrest. According to , present at bedside, the patient was found down at home in a small pool of blood. is a doctor, noted the patient did not have a pulse and called EMS. EMS arrived within 10 mins and began resuscitative efforts w/ TRACY system but could not intubate in the field. On arrival to patient was in asystole, then PEA; patient received a total of 5 pushes epi, 1 x bicarb, ROSC achieved. Patient was hypotensive in ED, fem line placed, levo & amio gtt initiated. Intubated in ED. Spoke with patient's regarding future resuscitative efforts, now signed DNR paperwork , in chart. Head CT reviewed and showed no acute pathology. Neurology consulted due to concern regarding abnormal movements and possible decorticate positioning. Appreciate initial evaluation by Dr. Moreno, note reviewed. Patient remains on Keppra 500mg twice daily. During my evaluation, not on sedation, patient does demonstrate brainstem reflexes including pupillary response and per nurse is overbreathing the vent, on nailbed pressure movement is more consistent with withdrawal to painful stimuli, no abnormal movements noted during my evaluation. Repeated Head CT reviewed and demonstrated brain edema w/o evidence of subfalcine or inferior herniation. No hemorrhage or gross focal acute infarct. Residual mild soft tissue swelling/hematoma of scalp over L. forehead. Remains on mannito but no significant improvement thus far and not able to be extubated as of yet. Patient likely for compassionate extubation in light of his lack of improvement despite all measures above. I would not be in objection of thisand defer to ICU attending and family for ultimate goals of care. Continued close monitoring in ICU. Critical care time 35 mins.
[2019-07-22] MEDS ORDERED: DEXTROSE 5%-WATER - 50 ML IVPB ONE (08:51)
[2019-07-22] MEDS ORDERED: cefTRIAXone SODIUM 1 GM VIAL ONE (08:51)
--- NOTE | 2019-07-22 09:14 | PN ---
Progress Note (short form) - Note Progress Note: Remains intubated, no changes clinically;No cardiac issues NSR CBC WBC 7.9 K/mm3 (4.0-10.0) 07/22/19 05:00 RBC 2.43 M/mm3 (4.00-5.60) L 07/22/19 05:00 Hgb 7.8 GM/dL (11.7-16.9) L 07/22/19 05:00 Hct 23.5 % (35.4-49) L 07/22/19 05:00 MCV 96.6 fl (80-96) H 07/22/19 05:00 MCH 31.9 pg (25.7-33.7) 07/22/19 05:00 MCHC 33.0 g/dl (32.0-35.9) 07/22/19 05:00 RDW 15.6 % (11.9-15.9) 07/22/19 05:00 Plt Count 215 K/MM3 (134-434) 07/22/19 05:00 MPV 8.2 fl (7.5-11.1) D 07/22/19 05:00 Absolute Neuts (auto) 6.7 K/mm3 (1.5-8.0) 07/22/19 05:00 Neutrophils % 84.6 % (42.8-82.8) H 07/22/19 05:00 Neutrophils % (Manual) 67.3 % (42.8-82.8) 07/15/19 01:20 Band Neutrophils % 2.0 % 07/15/19 01:20 Lymphocytes % 3.7 % (8-40) L D 07/22/19 05:00 Lymphocytes % (Manual) 22.8 % (8-40) 07/15/19 01:20 Monocytes % 8.9 % (3.8-10.2) 07/22/19 05:00 Monocytes % (Manual) 3 % (3.8-10.2) L 07/15/19 01:20 Eosinophils % 2.3 % (0-4.5) 07/22/19 05:00 Eosinophils % (Manual) 2.0 % (0-4.5) 07/15/19 01:20 Basophils % 0.5 % (0-2.0) 07/22/19 05:00 Basophils % (Manual) 0.0 % (0-2.0) 07/15/19 01:20 Myelocytes % (Man) 1 % (0-2) 07/15/19 01:20 Promyelocytes % (Man) 0 % (0-2) 07/15/19 01:20 Blast Cells % (Manual) 0 % (0-0) 07/15/19 01:20 Nucleated RBC % 0 % (0-0) 07/22/19 05:00 Metamyelocytes 2 % (0-2) 07/15/19 01:20 Hypochromia 0 07/15/19 01:20 Platelet Estimate Normal 07/15/19 01:20 Polychromasia 1+ 07/15/19 01:20 Poikilocytosis 0 07/15/19 01:20 Anisocytosis 1+ 07/15/19 01:20 Microcytosis 0 07/15/19 01:20 Macrocytosis 1+ 07/15/19 01:20 CMP Sodium 133 mmol/L (136-145) L 07/22/19 05:00 Potassium 4.5 mmol/L (3.5-5.1) 07/22/19 05:00 Chloride 101 mmol/L (98-107) 07/22/19 05:00 Carbon Dioxide 26 mmol/L (21-32) 07/22/19 05:00 Anion Gap 7 MMOL/L (8-16) L 07/22/19 05:00 BUN 35.5 mg/dL (7-18) H 07/22/19 05:00 Creatinine 2.4 mg/dL (0.55-1.3) H 07/22/19 05:00 Est GFR (CKD-EPI)AfAm 29.89 07/22/19 05:00 Est GFR (CKD-EPI)NonAf 25.79 07/22/19 05:00 POC Glucometer 146 UNITS (80-120) 07/22/19 06:25 Random Glucose 149 mg/dL (74-106) H 07/22/19 05:00 Lactic Acid 2.9 mmol/L (0.4-2.0) H* 07/15/19 06:10 Calcium 7.6 mg/dL (8.5-10.1) L 07/22/19 05:00 Phosphorus 4.2 mg/dL (2.5-4.9) 07/22/19 05:00 Magnesium 2.2 mg/dL (1.8-2.4) 07/22/19 05:00 Total Bilirubin 0.3 mg/dL (0.2-1) 07/22/19 05:00 AST 44 U/L (15-37) H 07/22/19 05:00 ALT 40 U/L (13-61) 07/22/19 05:00 Alkaline Phosphatase 169 U/L (45-117) H 07/22/19 05:00 Creatine Kinase 363 U/L (26-308) H 07/16/19 05:15 Creatine Kinase Index 3.0 % (0.0-5.0) 07/16/19 05:15 CK-MB (CK-2) 11.1 ng/mL (0.5-3.6) H 07/16/19 05:15 Troponin I < 0.02 ng/ml (0.00-0.05) 07/16/19 05:15 B-Natriuretic Peptide 1166.3 pg/ml (5-125) H 07/15/19 01:20 Total Protein 5.2 g/dl (6.4-8.2) L 07/22/19 05:00 Albumin 1.8 g/dl (3.4-5.0) L 07/22/19 05:00 Current Medications Acetaminophen (Tylenol Oral Solution -) 650 mg GT Q6H PRN PRN Reason: FEVER Last Admin: 07/22/19 09:33 Dose: 650 mg Amiodarone HCl (Cordarone -) 200 mg NGT DAILY [facility] Last Admin: 07/22/19 09:33 Dose: 200 mg Artificial Tears (Artificial Tears) 1 drop OU Q2H PRN PRN Reason: DRY EYES Last Admin: 07/21/19 17:30 Dose: 1 drop Chlorhexidine Gluconate (Peridex -) 15 ml MM BID [facility] Last Admin: 07/22/19 09:33 Dose: 15 ml Heparin Sodium (Porcine) (Heparin -) 5,000 unit SQ TID [facility] Last Admin: 07/22/19 06:17 Dose: 5,000 unit Ceftriaxone Sodium 1 gm/ (Dextrose) 50 mls @ 100 mls/hr IVPB DAILY [facility]; Protocol Last Admin: 07/22/19 09:34 Dose: 100 mls/hr Sodium Chloride (Normal Saline -) 1,000 mls @ 42 mls/hr IV ASDIR [facility] Last Admin: 07/21/19 13:20 Dose: 42 mls/hr Insulin Aspart (Novolog Vial Sliding Scale -) 1 vial SQ TIDAC [facility]; Protocol Last Admin: 07/22/19 06:26 Dose: Not Given Levetiracetam (Keppra Injection -) 500 mg IVPB 0600,1800 [facility] Last Admin: 07/22/19 06:17 Dose: 500 mg Metoprolol Tartrate (Lopressor -) 12.5 mg PO BID [facility] Last Admin: 07/22/19 09:34 Dose: 12.5 mg Pantoprazole Sodium (Protonix Iv) 40 mg IVPUSH DAILY [facility] Last Admin: 07/22/19 09:37 Dose: 40 mg Assessment: 07/15/2019 EchoL Normal LV sie with mild cLVG and normal LV fxn LVEF 60-65%, Grade I diastolic dysfunction, mid cavity obliteration w/o gradient, functional MS 2.2 MAD, mild MR, TR, MG 11 mmHg, no pericardial effusion 12/20/2018 Normal LV size and fn LVEF 60-65%, mid cavity obliteration with no gradient obtained, normal RV size and fxn, severe LAE, mild MR, TR 11/12/2018 R&LHc Elevated right-sided pressures, moderate pulm HTN, normal PVRI , elevated PCWP, elevated LVEDP, decreased cardiac output, 1 vessel CAD with occluded prox RCA filling via bridging collaterals, hyperdynamic systolic function 11/08/2018 Echo: Mod cLVH with normal systolic function LVEF 60-65%, grade II diastolic dysfunction with elevated filling pressures, hyperdynamic mid cavity with obliteration suggestive of mid cavity obstruction, resting left ventricular outflow tract gradient 25 mmHg increasing to 33 mmHg with Valsalva, mild LAE, normal RV size and fxn, mild-mod MR, mild TR RVSP 33 mmHg 09/22/2017 Dobutamine Myoview: Moderate size inferior perfusion defect wth mild ischemia, normal LVEF 88% 12/16/2018 LE US: No DVT bilaterally, moderate atherosclerosis w/o stenosis bilaterally 12/18/2018 HCT: No acute changes 1. Post asystolic arrest, previous h/o PEA arrest 2. Acute on chronic hypercapneic, hypoxemic respiratory failure with toxic metabolic encephalopathy 3. Acute on chronic diastolic heart failure, moderate functional MS and moderate pulmonary HTN 4. COPD on home O2 5. OSAS noncompliant with cpap 6. 1 vessel CAD h/o RCA stent with h/o demand ischemia 7. Hypertensive heart disease/HOCM of elderly 8. Paroxysmal AF/flutter->NSR ([id number]) off Eliquis 9. Hyperlipidemia 10. Sick euthyroid syndrome 11. CANDY resolved 12. Abnl LFTs 2/2 shock liver improved 13. R/o anoxic encephelopathy 14. Anemia PLAN: Same: 1. Ventilator support per ABG, BD as needed, observe for neurologic recovery 2. Wean pressors to maintain MAP>65 mmHg, change amio 200 qd with monitor LFTs 3. Empiric abx course f/u C&S 4. Diuresis as needed. Resume Eplerenone, Toprol XL, Bumex, Lipitor pending hemodynamic and LFT stability 5. AC held for possible UGI bleed, placed on sq heparin for DVT prophylaxis, stress-induced ulcers place on empiric IV PPI, enteral feeds
[2019-07-22] MEDS: CHLORHEXIDINE GLUCONATE 0.12% 15ML CUP MM SCH ×2 (09:33→23:03)
[2019-07-22] MEDS: METOPROLOL TARTRATE 25 MG TABLET (FP) PO SCH ×2 (09:34→23:03)
[2019-07-22] MEDS: CEFTRIAXONE 1 GM in DEXTROSE 5%-WATER - 50 ML IVPB SCH (09:34)
[2019-07-22] MEDS: PANTOPRAZOLE SODIUM 40 MG VIAL IVPUSH SCH (09:37)
[2019-07-22] MEDS ORDERED: AMIODARONE HCL 200 MG TABLET NGT SCH (10:00)
--- NOTE | 2019-07-22 12:22 | PN ---
Teaching Attending Note Name of Resident: Sharonda Estrada ATTENDING PHYSICIAN STATEMENT I saw and evaluated the patient. I reviewed the resident's note and discussed the case with the resident. I agree with the resident's findings and plan as documented. SUBJECTIVE: Patient seen and examined in the ICU. Remains intubated remains poorly responsive. No change in overall condition. OBJECTIVE: Intake & Output 07/19/19 07/20/19 07/21/19 07/22/19 23:59 23:59 23:59 23:59 Intake Total 3075.2 4276.1 3265.3 1558 Output Total 1400 3275 1500 70 Balance 1675.2 1001.1 1765.3 1488 Weight 196 lb 3.2 oz 195 lb 11.2 oz 199 lb 5 oz 206 lb 9.6 oz Last Vital Signs Temp Pulse Resp BP Pulse Ox 100.9 F H 67 30 H 117/48 L 88 L 07/22/19 11:00 07/22/19 12:15 07/22/19 12:15 07/22/19 12:15 07/22/19 09:40 Active Medications Acetaminophen (Tylenol Oral Solution -) 650 mg GT Q6H PRN PRN Reason: FEVER Last Admin: 07/22/19 09:33 Dose: 650 mg Amiodarone HCl (Cordarone -) 200 mg NGT DAILY [facility] Last Admin: 07/22/19 09:33 Dose: 200 mg Artificial Tears (Artificial Tears) 1 drop OU Q2H PRN PRN Reason: DRY EYES Last Admin: 07/21/19 17:30 Dose: 1 drop Chlorhexidine Gluconate (Peridex -) 15 ml MM BID [facility] Last Admin: 07/22/19 09:33 Dose: 15 ml Heparin Sodium (Porcine) (Heparin -) 5,000 unit SQ TID [facility] Last Admin: 07/22/19 06:17 Dose: 5,000 unit Ceftriaxone Sodium 1 gm/ (Dextrose) 50 mls @ 100 mls/hr IVPB DAILY [facility]; Protocol Last Admin: 07/22/19 09:34 Dose: 100 mls/hr Sodium Chloride (Normal Saline -) 1,000 mls @ 42 mls/hr IV ASDIR [facility] Last Admin: 07/21/19 13:20 Dose: 42 mls/hr Insulin Aspart (Novolog Vial Sliding Scale -) 1 vial SQ TIDAC [facility]; Protocol Last Admin: 07/22/19 11:06 Dose: Not Given Levetiracetam (Keppra Injection -) 500 mg IVPB 0600,1800 [facility] Last Admin: 07/22/19 06:17 Dose: 500 mg Metoprolol Tartrate (Lopressor -) 12.5 mg PO BID [facility] Last Admin: 07/22/19 09:34 Dose: 12.5 mg Pantoprazole Sodium (Protonix Iv) 40 mg IVPUSH DAILY [facility] Last Admin: 07/22/19 09:37 Dose: 40 mg Gen: intubated, unresponsive Heart: RRR Lung: decreased breath sounds at the bases Abd: soft, nontender Ext: no edema Laboratory Results - last 24 hr 07/21/19 07/21/19 07/22/19 16:43 22:40 05:00 WBC 7.9 RBC 2.43 L Hgb 7.8 L Hct 23.5 L MCV 96.6 H MCH 31.9 MCHC 33.0 RDW 15.6 Plt Count 215 MPV 8.2 D Absolute Neuts (auto) 6.7 Neutrophils % 84.6 H Lymphocytes % 3.7 L D Monocytes % 8.9 Eosinophils % 2.3 Basophils % 0.5 Nucleated RBC % 0 Sodium Potassium Chloride Carbon Dioxide Anion Gap BUN Creatinine Est GFR (CKD-EPI)AfAm Est GFR (CKD-EPI)NonAf POC Glucometer 139 132 Random Glucose Calcium Phosphorus Magnesium Total Bilirubin AST ALT Alkaline Phosphatase Total Protein Albumin 07/22/19 07/22/19 07/22/19 05:00 06:25 10:57 WBC RBC Hgb Hct MCV MCH MCHC RDW Plt Count MPV Absolute Neuts (auto) Neutrophils % Lymphocytes % Monocytes % Eosinophils % Basophils % Nucleated RBC % Sodium 133 L Potassium 4.5 Chloride 101 Carbon Dioxide 26 Anion Gap 7 L BUN 35.5 H Creatinine 2.4 H Est GFR (CKD-EPI)AfAm 29.89 Est GFR (CKD-EPI)NonAf 25.79 POC Glucometer 146 150 Random Glucose 149 H Calcium 7.6 L Phosphorus 4.2 Magnesium 2.2 Total Bilirubin 0.3 AST 44 H ALT 40 Alkaline Phosphatase 169 H Total Protein 5.2 L Albumin 1.8 L ASSESSMENT AND PLAN: s/p Cardiopulmonary Arrest Likely Anoxic Encephalopathy Shock - r/o Septic r/o Pneumonia Bacteremia CAD LV Diastolic Dysfunction Pulmonary HTN Paroxysmal Atrial Fibrilation COPD Chronic Hypoxic Respiratory Failure HTN Hypercholesterolemia Obstructive Sleep Apnea Anemia - hold all sedation to assess mental status - monitor neuro exam - continue empiric antieplieptics - enteral feeds - DVT/GI prophylaxis - prognosis guarded Spoke with . Likely for compassionate extubation this weekend. Dr Gaming Critical care time spent in reviewing chart, evaluating patient and formulating plan 36 min
[2019-07-22] MEDS: SODIUM CHLORIDE 1,000 ML IV SCH (13:28)
[2019-07-22] MEDS ORDERED: ALBUTEROL SO4 2.5/IPRATROPIUM 0.5 INH SOL 3 ML VIAL.NEB. NEB PRN (13:45)
[2019-07-22 14:03] VITALS: BMI 31.3
--- NOTE | 2019-07-22 15:05 | PN ---
Teaching Attending Note Name of Resident: Taz Hernández ATTENDING PHYSICIAN STATEMENT I saw and evaluated the patient. I reviewed the resident's note and discussed the case with the resident. I agree with the resident's findings and plan as documented. SUBJECTIVE: Intubated/Mechanically Ventilated, unable to participate in medical interview. No fever/chills. OBJECTIVE: Fevers again, off Levophed. Less responsive, decreaed amplitude withdrawals from pain stimuli. Pupils equal and sluggish. Brainstem reflexes intact. RIJ. Last Vital Signs Temp Pulse Resp BP Pulse Ox 101 F H 69 29 H 128/56 L 88 L 07/22/19 14:00 07/22/19 14:00 07/22/19 14:00 07/22/19 14:00 07/22/19 09:40 HEART: S1, S2, RRR LUNGS: Intubated/Ventilated - good air entry bilaterally ABDOMEN: Soft, non-distended, hypoactive BS. OG tune in situ. EXTREMITIES: Mild edema Laboratory Results - last 24 hr 07/21/19 07/21/19 07/22/19 16:43 22:40 05:00 WBC 7.9 RBC 2.43 L Hgb 7.8 L Hct 23.5 L MCV 96.6 H MCH 31.9 MCHC 33.0 RDW 15.6 Plt Count 215 MPV 8.2 D Absolute Neuts (auto) 6.7 Neutrophils % 84.6 H Lymphocytes % 3.7 L D Monocytes % 8.9 Eosinophils % 2.3 Basophils % 0.5 Nucleated RBC % 0 Sodium Potassium Chloride Carbon Dioxide Anion Gap BUN Creatinine Est GFR (CKD-EPI)AfAm Est GFR (CKD-EPI)NonAf POC Glucometer 139 132 Random Glucose Calcium Phosphorus Magnesium Total Bilirubin AST ALT Alkaline Phosphatase Total Protein Albumin 07/22/19 07/22/19 07/22/19 05:00 06:25 10:57 WBC RBC Hgb Hct MCV MCH MCHC RDW Plt Count MPV Absolute Neuts (auto) Neutrophils % Lymphocytes % Monocytes % Eosinophils % Basophils % Nucleated RBC % Sodium 133 L Potassium 4.5 Chloride 101 Carbon Dioxide 26 Anion Gap 7 L BUN 35.5 H Creatinine 2.4 H Est GFR (CKD-EPI)AfAm 29.89 Est GFR (CKD-EPI)NonAf 25.79 POC Glucometer 146 150 Random Glucose 149 H Calcium 7.6 L Phosphorus 4.2 Magnesium 2.2 Total Bilirubin 0.3 AST 44 H ALT 40 Alkaline Phosphatase 169 H Total Protein 5.2 L Albumin 1.8 L Current Medications Generic Name Dose Route Start Last Admin Trade Name Skylar PRN Reason Stop Dose Admin Acetaminophen 650 mg 07/17/19 17:04 07/22/19 09:33 Tylenol Oral Solution - GT 650 mg Q6H PRN Administration FEVER Albuterol/Ipratropium 1 amp 07/22/19 13:45 Duoneb - NEB Q4H PRN SHORTNESS OF BREATH Amiodarone HCl 200 mg 07/22/19 10:00 07/22/19 09:33 Cordarone - NGT 200 mg DAILY [facility] Administration Artificial Tears 1 drop 07/21/19 15:14 07/21/19 17:30 Artificial Tears OU 1 drop Q2H PRN Administration DRY EYES Chlorhexidine Gluconate 15 ml 07/17/19 22:00 07/22/19 09:33 Peridex - MM 15 ml BID [facility] Administration Heparin Sodium (Porcine) 5,000 unit 07/18/19 06:00 07/22/19 13:29 Heparin - SQ 5,000 unit TID [facility] Administration Ceftriaxone Sodium 1 gm/ 50 mls @ 100 mls/hr 07/16/19 10:00 07/22/19 09:34 Dextrose IVPB 100 mls/hr DAILY [facility] Administration Protocol Sodium Chloride 1,000 mls @ 42 mls/hr 07/20/19 13:20 07/22/19 13:28 Normal Saline - IV Not Given ASDIR [facility] Insulin Aspart 1 vial 07/16/19 07:00 07/22/19 11:06 Novolog Vial Sliding Scale - SQ Not Given TIDAC [facility] Protocol Levetiracetam 500 mg 07/16/19 06:00 07/22/19 06:17 Keppra Injection - IVPB 500 mg 0600,1800 [facility] Administration Metoprolol Tartrate 12.5 mg 07/21/19 11:30 07/22/19 09:34 Lopressor - PO 12.5 mg BID [facility] Administration Pantoprazole Sodium 40 mg 07/15/19 10:00 07/22/19 09:37 Protonix Iv IVPUSH 40 mg DAILY [facility] Administration Home Medications Medication Instructions Recorded Sertraline HCl [Zoloft] 100 mg PO DAILY 01/09/12 Albuterol Sulfate Inhaler - 1 - 2 puff IH PRN PRN MDD Q4-6 12/15/18 [Ventolin HFA Inhaler -] hours Atorvastatin Ca [Lipitor] 40 mg PO HS 12/15/18 Eplerenone 25 mg PO DAILY 12/15/18 Ezetimibe 10 mg PO DAILY 12/15/18 Lamotrigine [Lamictal] 25 mg PO DAILY 12/15/18 Metoprolol Succinate [Toprol Xl] 12.5 mg PO BID 12/15/18 Ranolazine [Ranexa] 1,000 mg PO BID 12/15/18 Fluticasone/Vilanterol [Breo 1 puff IN DAILY 12/16/18 Ellipta 200-25 Mcg INH] Amiodarone HCl 200 mg PO DAILY 05/29/19 Apixaban [Eliquis] 5 mg PO BID 05/29/19 Bumetanide [Bumex -] 1 mg PO BID 05/29/19 ASSESSMENT AND PLAN: 74 year old male with history of HTN, HLD, s/p cardiac arrest, CAD with stent, Atrial Flutter, chronic diastolic heart failure, chronic hypoxic respiratory failure, COPD, pulm HTN, RADHIKA who was brought to the ED after a cardiac arrest at home. 1. Acute on chronic Hypoxic and Hypercapneic Respiratory Failure s/p Cardiac Arrest with prolonged arrest-time Intubated/Ventilated. Management as per Senior Data Analyst. Hx of PEA arrest. Unable to wean/extubate. As per discussion with family and smutter, for compassionate extubation 2. Septic ? Cardiogenic Shock s/p arrest Sec to Pneumonia, Staph simulans bacteremia Repeat Blood Cx negative. Vancomycin stopped. Continue Ceftriaxone. ID following. Fevers ongoing ?central due to cerebral edema. 3. Acute Anoxic Encephalopathy with Multi-organ failure secondary to above. Poorly responsive off Versed Sedation Appears to withdraw slightly to painful stimuli LEs. Brainstem reflexes intact. Cerebral edema on brain imaging, no herniation. On Mannitol. Started on Keppra for seizure prophylaxis. 4. Paroxysmal atrial flutter - Amiodarone drip transitioned to 200mg via NGT. Anticoagulation held secondary to anemia. Previously on Eliquis. 5. CANDY - Creatinine worsening. Not on home Eplerenone or Bumex. IV hydration ongoing. 6. Hx CAD s/p PCI/stent 7. HTN - Antihypertensives held secondary to shock. Weaned off Levophed. 8. Hepatic Transaminitis - secondary to shock, improving. 9. CRF sec to COPD/Pul HTN - on mechanical ventilation - no evidence of acute exacerbation COPD. 10. Hypophosphatemia - repleted. DVT Px - Heparin SQ GI Px - PPI Nutrition - via NGT Family aware of poor prognosis, consideration being given to terminal extubation this weekend. Currently DNR.
--- NOTE | 2019-07-22 15:22 | PN ---
Physical Exam: SUBJECTIVE: Patient seen and examined No overnight events. Intubated and sedated. Tolerating tube feeds OBJECTIVE: Vital Signs Period Temp Pulse Resp BP Sys/Govea Pulse Ox Last 24 Hr 98.7 F-101 F 66-72 19-30 113-131/48-60 88-91 GENERAL: not following commands. Intubated, sedated HEAD: NC. Left periorbital soft tissue swelling w/ ecchymosis, no active bleeding EYES: Pupils ~3mm, sluggish accomodation to light of Right pupil, slow horizontal nystagmus, sclera anicteric, conjunctiva clear. EARS, NOSE, THROAT: Ears normal, nares patent. NECK: supple without lymphadenopathy, JVD, or masses. LUNGS: Mild coarse BS bilaterally. Vent 500, 16, 5, 60% HEART: Regular rate and rhythm, normal S1 and S2 without murmur, rub or gallop. ABDOMEN: Soft, nontender, not distended, normoactive bowel sounds, no guarding, no rebound. MUSCULOSKELETAL: No bony deformities UPPER EXTREMITIES: 2+ pulses, cool, well-perfused. No cyanosis. No clubbing. LOWER EXTREMITIES: 2+ pulses, cool, well-perfused. No calf tenderness. No peripheral edema. NEUROLOGICAL: Not responding to questioning or sternal rub. BUE posturing with pinching. Up-going toes with sharp stroking to plantar surfaces SKIN: cool, dry, normal turgor, no rashes or lesions noted. Laboratory Results - last 24 hr CBC, BMP 07/22/19 05:00 07/22/19 05:00 Active Medications Generic Name Dose Route Start Last Admin Trade Name Freq PRN Reason Stop Dose Admin Acetaminophen 650 mg 07/17/19 17:04 07/22/19 09:33 Tylenol Oral Solution - GT 650 mg Q6H PRN Administration FEVER Albuterol/Ipratropium 1 amp 07/22/19 13:45 Duoneb - NEB Q4H PRN SHORTNESS OF BREATH Amiodarone HCl 200 mg 07/22/19 10:00 07/22/19 09:33 Cordarone - NGT 200 mg DAILY JONH Administration Artificial Tears 1 drop 07/21/19 15:14 07/21/19 17:30 Artificial Tears OU 1 drop Q2H PRN Administration DRY EYES Chlorhexidine Gluconate 15 ml 07/17/19 22:00 07/22/19 09:33 Peridex - MM 15 ml BID JONH Administration Heparin Sodium (Porcine) 5,000 unit 07/18/19 06:00 07/22/19 13:29 Heparin - SQ 5,000 unit TID JONH Administration Ceftriaxone Sodium 1 gm/ 50 mls @ 100 mls/hr 07/16/19 10:00 07/22/19 09:34 Dextrose IVPB 100 mls/hr DAILY JONH Administration Protocol Sodium Chloride 1,000 mls @ 42 mls/hr 07/20/19 13:20 07/22/19 13:28 Normal Saline - IV Not Given ASDIR [facility] Insulin Aspart 1 vial 07/16/19 07:00 07/22/19 11:06 Novolog Vial Sliding Scale - SQ Not Given TIDAC [facility] Protocol Levetiracetam 500 mg 07/16/19 06:00 07/22/19 06:17 Keppra Injection - IVPB 500 mg 0600,1800 JONH Administration Metoprolol Tartrate 12.5 mg 07/21/19 11:30 07/22/19 09:34 Lopressor - PO 12.5 mg BID JONH Administration Pantoprazole Sodium 40 mg 07/15/19 10:00 07/22/19 09:37 Protonix Iv IVPUSH 40 mg DAILY JONH Administration ASSESSMENT/PLAN: Patient is a 73 year old M with PMH of COPD (4L O2), pulmonary HTN, RADHIKA, HFpEF( LVEF 60-65%, 12/20/18), moderate Aortic Stenosis, HTN, HLD, CAD s/p RCA DAVID (2003 ,2004,2018), pAFib(Eliquis), cardiac arrest(, November 2018) BIBA after being found down and pulseless in his home. [facility] arrival, pt was found to be in asystole then PEA. ED sp Epi x5, bicarb; achieved ROSC. Intubated. Getting Levophed gtt, amiodarone gtt, MgSO4. Admitted to ICU for post-cardiac- arrest care. Neuro -Metabolic encephalopathy --possibly 2/2 in-field hypoxia -Possible anoxic brain injury -CT Head (07/18/19): brain edema w/o herniation. Left forehead w/ scalp hematoma -Placed on sedation overnight, will monitor off today. -Neuro (Dr. Duvall) consult: -Keppra BID -Mannitol to reduce brain edema Pulmonary -Respiratory Failure -- intubated -Chronic COPD -VBG (07/15/19): 7.08/98.9/<49/28.0/46.7 -CXR (07/18/19): progressive pulmonary and congestive findings -IV lasix 40mg once and decreased fluids Cardiovascular -Post-Cardiac Arrest(ROSC after epi x5, bicarb) -Troponin neg x1, fu repeats -BNP 1166 -Targeted Temperature Mgmt: goal Temp <36C for at least 24hs and to keep pt afeb -ice packs and cooling blanket PRN -Wean off levophed -Amiodarone gtt -Off sedation -MAP goal >65 -HOLD home Eliquis, Bumex, Metoprolol, Amiodarone PO, Eplerenone, Ezetimibe, Atorvastatin GI -Transaminitis --likely 2/2 to shock ---improving -AST/ALT: 144/130 -->98/68 -OGT in place -Tube feeds -NPO -Trend LFTs Renal -CANDY --2/2 to hypotension, resolved -Lactic acidemia, resolving -UA: neg LE, neg nitrite -Gentle IVF Heme/ID -Macrocytic anemia -Monitor H/H -Urine cx (07/15/19): NGTD -Blood cx (07/15/19): 1 of 2 bottle growing staphylococus Simulans -Blood cx (07/18/19): NGTD -ID([facility]) consult: --First blood cx likley contaminant --cont empiric ceftriaxone --D/c'ed vancomycin --Likely neurogenic fevers FEN -NS @ 42ml/hr -TF: Osmolit DVT ppx -SQH LINES -ETT -OGT -RIJ -Shah CODE STATUS: DNR; poor prognosis and likely compassionate wean this weekend Dispo: We will continue to follow the patient. Thank you for this consultative opportunity. Visit type - Emergency Visit Emergency Visit: No - New Patient This patient is new to me today: No - Critical Care Critical Care patient: Yes Total Critical Care Time (in minutes): 35 Critical Care Statement: The care of this patient involved high complexity decision making to prevent further life threatening deterioration of the patient 's condition and/or to evaluate & treat vital organ system(s) failure or risk of failure. ATTENDING PHYSICIAN STATEMENT I saw and evaluated the patient. I reviewed the resident's note and discussed the case with the resident. I agree with the resident's findings and plan as documented. SUBJECTIVE: OBJECTIVE: ASSESSMENT AND PLAN:
--- NOTE | 2019-07-22 15:30 | PN ---
Physical Exam: SUBJECTIVE: Patient seen and examined. Pt Intubated, sedated. Does withdraw to pain on right LE. Unresponsive, currently on pressors. Afebrile. OBJECTIVE: Vital Signs Period Temp Pulse Resp BP Sys/Govea Pulse Ox Last 24 Hr 98.7 F-101 F 66-72 19-30 113-131/48-60 88-91 GENERAL: Intubated, sedated. Does withdraw to pain on right LE. Unresponsive, currently on pressors. Mild tremors on right fingers HEAD: Normal with no signs of trauma. EYES: L eye hematoma from fall, L pupil reactive but sluggish, R pupil reactive but sluggish. Slow horizontal movement of the eyes LUNGS: Coarse breath sound bilaterally, ET intact + ventilated HEART: Regular rate and rhythm, S1, S2 ABDOMEN: Soft, decreased bowel sounds, nondistended. EXTREMITIES: No LE edema, Babinski sign positive b/l LE NEURO: Intubated, sedated. Does withdraw to pain. no cough or gag appreciated Laboratory Results - last 24 hr 07/21/19 07/21/19 07/22/19 16:43 22:40 05:00 WBC 7.9 RBC 2.43 L Hgb 7.8 L Hct 23.5 L MCV 96.6 H MCH 31.9 MCHC 33.0 RDW 15.6 Plt Count 215 MPV 8.2 D Absolute Neuts (auto) 6.7 Neutrophils % 84.6 H Lymphocytes % 3.7 L D Monocytes % 8.9 Eosinophils % 2.3 Basophils % 0.5 Nucleated RBC % 0 Sodium Potassium Chloride Carbon Dioxide Anion Gap BUN Creatinine Est GFR (CKD-EPI)AfAm Est GFR (CKD-EPI)NonAf POC Glucometer 139 132 Random Glucose Calcium Phosphorus Magnesium Total Bilirubin AST ALT Alkaline Phosphatase Total Protein Albumin 07/22/19 07/22/19 07/22/19 05:00 06:25 10:57 WBC RBC Hgb Hct MCV MCH MCHC RDW Plt Count MPV Absolute Neuts (auto) Neutrophils % Lymphocytes % Monocytes % Eosinophils % Basophils % Nucleated RBC % Sodium 133 L Potassium 4.5 Chloride 101 Carbon Dioxide 26 Anion Gap 7 L BUN 35.5 H Creatinine 2.4 H Est GFR (CKD-EPI)AfAm 29.89 Est GFR (CKD-EPI)NonAf 25.79 POC Glucometer 146 150 Random Glucose 149 H Calcium 7.6 L Phosphorus 4.2 Magnesium 2.2 Total Bilirubin 0.3 AST 44 H ALT 40 Alkaline Phosphatase 169 H Total Protein 5.2 L Albumin 1.8 L Active Medications Generic Name Dose Route Start Last Admin Trade Name Skylar PRN Reason Stop Dose Admin Acetaminophen 650 mg 07/17/19 17:04 07/22/19 09:33 Tylenol Oral Solution - GT 650 mg Q6H PRN Administration FEVER Albuterol/Ipratropium 1 amp 07/22/19 13:45 Duoneb - NEB Q4H PRN SHORTNESS OF BREATH Amiodarone HCl 200 mg 07/22/19 10:00 07/22/19 09:33 Cordarone - NGT 200 mg DAILY JONH Administration Artificial Tears 1 drop 07/21/19 15:14 07/21/19 17:30 Artificial Tears OU 1 drop Q2H PRN Administration DRY EYES Chlorhexidine Gluconate 15 ml 07/17/19 22:00 07/22/19 09:33 Peridex - MM 15 ml BID JONH Administration Heparin Sodium (Porcine) 5,000 unit 07/18/19 06:00 07/22/19 13:29 Heparin - SQ 5,000 unit TID [facility] Administration Ceftriaxone Sodium 1 gm/ 50 mls @ 100 mls/hr 07/16/19 10:00 07/22/19 09:34 Dextrose IVPB 100 mls/hr DAILY [facility] Administration Protocol Sodium Chloride 1,000 mls @ 42 mls/hr 07/20/19 13:20 07/22/19 13:28 Normal Saline - IV Not Given ASDIR [facility] Insulin Aspart 1 vial 07/16/19 07:00 07/22/19 11:06 Novolog Vial Sliding Scale - SQ Not Given TIDAC [facility] Protocol Levetiracetam 500 mg 07/16/19 06:00 07/22/19 06:17 Keppra Injection - IVPB 500 mg 0600,1800 JONH Administration Metoprolol Tartrate 12.5 mg 07/21/19 11:30 07/22/19 09:34 Lopressor - PO 12.5 mg BID JONH Administration Pantoprazole Sodium 40 mg 07/15/19 10:00 07/22/19 09:37 Protonix Iv IVPUSH 40 mg DAILY JONH Administration ASSESSMENT/PLAN: 74 y/o M PMH cardiac arrest 11/2018, a-flutter on eliquis, COPD on 4L home o2, pulm HTN, RADHIKA, HFpEF, HTN, HLD, CAD s/p RCA stent, medication noncompliance presented s/p cardiac arrest #s/p Cardiac arrest s/p targeted temperature management on pressors to maintain MAP >65 AC mode of vent Blood cultures growing Staph coag neg- could be contaminated- r/p Cx neg Ceftriaxone 1 g Versed back on intubated + on mannitol, if continues like this, prognosis is poor as per neuro Eliquis held due to suspected UGIB, stress ulcer ppx with PPI On Jevity enteral feeds Phosphorus repletion IVF I&O Pt is DNR Pt's neurological functions are deteriorating, prognosis poor Pending Family to make decision, will contact #Anoxic encephalopathy Then continue levetiracetam 500 mg q [address] head for evaluation of anoxic Brain injury- brain edema w/out evidence of subfalcine or inferior herniation, no intracranial hemorrhage or gross focal acute infract, no shift of midline structure. Residual mild soft tissue swelling /hematoma of the scalp over the left forehead. #Hx a-flutter on amiodarone drip 200 Cardio recom holding Bumetanide, Eplerenone, Toprol XL, Lipitor #Anemia cont to monitor #CANDY now resolved #Transaminitis likely shock liver LFTs trending down continue to monitor #Hyperglycemia now resolved continue BGMs Insulin sliding scale #FEN IV NS @83cc/hr monitor lytes NPO #DVT ppx SCDs #GI ppx Protonix 40mg IV daily #Dispo: discussed with Dr. Gaming, as per family, plan for compassionate extubation tomorrow/ this weekend Visit type - Emergency Visit Emergency Visit: Yes ED Registration Date: 07/15/19 Care time: The patient presented to the Emergency Department on the above date and was hospitalized for further evaluation of their emergent condition. - New Patient This patient is new to me today: Yes Date on this admission: 07/23/19 - Critical Care Critical Care patient: No - Discharge Referral Referred to [facility] Med P.C[facility] No ATTENDING PHYSICIAN STATEMENT I saw and evaluated the patient. I reviewed the resident's note and discussed the case with the resident. I agree with the resident's findings and plan as documented. SUBJECTIVE: OBJECTIVE: ASSESSMENT AND PLAN:
[2019-07-22] MEDS ORDERED: MIDAZOLAM IN 0.9 % SOD.CHLORID 1 MG/1 ML PLAST..BAG ONE (20:50)
[2019-07-22] MEDS ORDERED: MIDAZOLAM 100 MG in SODIUM CHLORIDE 100 ML IVPB SCH (21:00)
[2019-07-23] MEDS: levETIRAcetam 500 MG/5 ML INJECTION VIAL IVPB SCH (06:44)
[2019-07-23] MEDS: HEPARIN NA (PORCINE) 5,000 UNITS/ML 1ML VIAL SQ SCH (06:44)
[2019-07-23] MEDS: INSULIN SLIDING SCALE (NOVOLOG) 1 VIAL SQ SCH (06:54)
[2019-07-23] MEDS ORDERED: MORPHINE SULFATE 2 MG/ML VIAL IVPUSH ONE (07:11)
[2019-07-23] MEDS ORDERED: MORPHINE SULFATE/0.9% NACL/PF 100 MG/100 ML BAG IVPB SCH (07:15)
--- NOTE | 2019-07-23 10:14 | PN ---
Physical Exam: SUBJECTIVE: Patient seen and examined at bedside- patient remains sedated and intubated; all drips shut off this AM; patient to be terminally extubated this afternoon. OBJECTIVE: Vital Signs Period Temp Pulse Resp BP Sys/Govea Pulse Ox Last 24 Hr 100 F-101.0 F 67-73 16-30 108-139/40-62 93-93 GENERAL: The patient is intubated; sedated. EYES: Pupils 3mm, sluggish accomodation to light of Right pupil, slow horizontal nystagmus, sclera anicteric, conjunctiva clear. NECK: no JVD; no lymphadenopathy LUNGS:diminished breath sounds at the bases; HEART: Regular rate and rhythm, S1, S2 without murmur, rub or gallop. ABDOMEN: Soft, NT/ND +BS in all 4 quadrants EXTREMITIES: 2+ pulses, warm, well-perfused, no edema. NEUROLOGICAL: intubated; sedated PSYCH: Normal mood, normal affect. SKIN: Warm, dry, normal turgor, no rashes or lesions noted Laboratory Results - last 24 hr 07/22/19 10:57 POC Glucometer 150 Active Medications Generic Name Dose Route Start Last Admin Trade Name Freq PRN Reason Stop Dose Admin Morphine Sulfate 100 mg in 100 mls @ 1 mls/hr 07/23/19 07:15 07/23/19 08:12 Morphine 100mg/100ml-0.9% Nacl IVPB 07/24/19 07:14 1 mg/hr TITR JONH 1 mls/hr Administration Protocol 1 MG/HR ASSESSMENT/PLAN: Patient is a 73 year old M with PMH of COPD (4L O2), pulmonary HTN, RADHIKA, HFpEF( LVEF 60-65%, 12/20/18), moderate Aortic Stenosis, HTN, HLD, CAD s/p RCA DAVID (2003 ,2004,2018), pAFib(Eliquis), cardiac arrest(, November 2018) BIBA after being found down and pulseless in his home. Upon [facility]-ED arrival, pt was found to be in asystole then PEA. ED sp Epi x5, bicarb; achieved ROSC. Intubated. Getting Levophed gtt, amiodarone gtt, MgSO4. Admitted to ICU for post-cardiac- arrest care #Neuro sedated and intubated [facility] ppx to be terminally extubated this afternoon; morpghine gtt started #cardio s/p cardiac arrest no longer on pressors no longer on amio gtt to be terminally extubated this afternoon #ID first blood cx + coag negative staph in the blood repeat blood cx negative; no longer on abx #Pulm currently intubated/sedated to be terminally extubated today- morphine gtt started dispo: to be terminally extubated this afternoon Problem List - Problems (1) Bacteremia Code(s): R78.81 - BACTEREMIA (2) Cardiac arrest Code(s): I46.9 - CARDIAC ARREST, CAUSE UNSPECIFIED (3) CHF exacerbation Code(s): I50.9 - HEART FAILURE, UNSPECIFIED Qualifiers: Heart failure type: diastolic Qualified Code(s): I50.33 - Acute on chronic diastolic (congestive) heart failure Visit type - Emergency Visit Emergency Visit: Yes ED Registration Date: 07/15/19 Care time: The patient presented to the Emergency Department on the above date and was hospitalized for further evaluation of their emergent condition. - New Patient This patient is new to me today: Yes Date on this admission: 07/23/19 - Critical Care Critical Care patient: Yes Total Critical Care Time (in minutes): 35 Critical Care Statement: The care of this patient involved high complexity decision making to prevent further life threatening deterioration of the patient 's condition and/or to evaluate & treat vital organ system(s) failure or risk of failure. ATTENDING PHYSICIAN STATEMENT I saw and evaluated the patient. I reviewed the resident's note and discussed the case with the resident. I agree with the resident's findings and plan as documented. SUBJECTIVE: OBJECTIVE: ASSESSMENT AND PLAN:
[2019-07-23 10:20] VITALS: TEMP 99.7
--- NOTE | 2019-07-23 10:32 | PN ---
Teaching Attending Note Name of Resident: Christiana Aleman ATTENDING PHYSICIAN STATEMENT I saw and evaluated the patient. I reviewed the resident's note and discussed the case with the resident. I agree with the resident's findings and plan as documented. SUBJECTIVE: Patient seen and examined in the ICU. Remains intubated remains poorly responsive. No change in overall condition. OBJECTIVE: Intake & Output 07/20/19 07/21/19 07/22/19 07/23/19 23:59 23:59 23:59 23:59 Intake Total 4276.1 3265.3 3166 334 Output Total 3275 1500 70 350 Balance 1001.1 1765.3 3096 -16 Weight 195 lb 11.2 oz 199 lb 5 oz 206 lb 9.6 oz 213 lb 3 oz Last Vital Signs Temp Pulse Resp BP Pulse Ox 99.7 F H 69 18 108/49 L 93 L 07/23/19 10:00 07/23/19 10:00 07/23/19 10:00 07/23/19 08:00 07/23/19 08:20 Active Medications Morphine Sulfate (Morphine 100mg/100ml-0.9% Nacl) 100 mg in 100 mls @ 1 mls/hr IVPB TITR JONH; Protocol Stop: 07/24/19 07:14 Last Admin: 07/23/19 08:12 Dose: 1 mg/hr, 1 mls/hr Gen: intubated, unresponsive Heart: RRR Lung: decreased breath sounds at the bases Abd: soft, nontender Ext: no edema Laboratory Results - last 24 hr 07/22/19 10:57 POC Glucometer 150 ASSESSMENT AND PLAN: s/p Cardiopulmonary Arrest Likely Anoxic Encephalopathy Shock - r/o Septic r/o Pneumonia Bacteremia CAD LV Diastolic Dysfunction Pulmonary HTN Paroxysmal Atrial Fibrilation COPD Chronic Hypoxic Respiratory Failure HTN Hypercholesterolemia Obstructive Sleep Apnea Anemia MS and Ativan for comfort measures Likely for compassionate extubation today Dr Gaming
--- NOTE | 2019-07-23 11:24 | PN ---
Progress Note, Physician History of Present Illness: Remains intubated remains poorly responsive. Placed on morphine gtt AM; patient to be terminally extubated this afternoon. - Current Medication List Current Medications: Active Medications Morphine Sulfate (Morphine 100mg/100ml-0.9% Nacl) 100 mg in 100 mls @ 1 mls/hr IVPB TITR JONH; Protocol Stop: 07/24/19 07:14 Last Admin: 07/23/19 08:12 Dose: 1 mg/hr, 1 mls/hr - Objective Vital Signs: Vital Signs Temperature 99.7 F H 07/23/19 10:00 Pulse Rate 69 07/23/19 10:00 Respiratory Rate 18 07/23/19 10:00 Blood Pressure 108/49 L 07/23/19 08:00 O2 Sat by Pulse Oximetry (%) 93 L 07/23/19 08:20 Constitutional: Yes: No Distress, Calm Neck: Yes: Supple Cardiovascular: Yes: Regular Rate and Rhythm Respiratory: Yes: Intubated, Mechanically Ventilated, Rhonchi Gastrointestinal: Yes: Soft, Hypoactive Bowel Sounds Edema: Yes Edema: LLE: Trace Peripheral Pulses WNL: No Labs: CBC, BMP 07/22/19 05:00 07/22/19 05:00 INR, PTT INR 1.56 (0.83-1.09) H 07/16/19 05:15 Problem List - Problems (1) Cardiac arrest Code(s): I46.9 - CARDIAC ARREST, CAUSE UNSPECIFIED (2) CHF exacerbation Code(s): I50.9 - HEART FAILURE, UNSPECIFIED Qualifiers: Heart failure type: diastolic Qualified Code(s): I50.33 - Acute on chronic diastolic (congestive) heart failure (3) Coronary artery disease Code(s): I25.10 - ATHSCL HEART DISEASE OF [place] CORONARY ARTERY W/O ANG PCTRS Qualifiers: Coronary Disease-Associated Artery/Lesion type: [place] artery [place] vs. transplanted heart: [place] heart Associated angina: without angina Qualified Code(s): I25.10 - Atherosclerotic heart disease of [place] coronary artery without angina pectoris (4) Hypertrophic cardiomyopathy Code(s): I42.2 - OTHER HYPERTROPHIC CARDIOMYOPATHY (5) RADHIKA (obstructive sleep apnea) Code(s): G47.33 - OBSTRUCTIVE SLEEP APNEA (ADULT) (PEDIATRIC) (6) Pulmonary hypertension assoc with unclear multi-factorial mechanisms Code(s): I27.29 - OTHER SECONDARY PULMONARY HYPERTENSION (7) S/P right coronary artery (RCA) stent placement Code(s): Z95.5 - PRESENCE OF CORONARY ANGIOPLASTY IMPLANT AND GRAFT Assessment/Plan 07/15/2019 EchoL Normal LV sie with mild cLVG and normal LV fxn LVEF 60-65%, Grade I diastolic dysfunction, mid cavity obliteration w/o gradient, functional MS 2.2 MAD, mild MR, TR, MG 11 mmHg, no pericardial effusion 12/20/2018 Normal LV size and fn LVEF 60-65%, mid cavity obliteration with no gradient obtained, normal RV size and fxn, severe LAE, mild MR, TR 11/12/2018 R&LHc Elevated right-sided pressures, moderate pulm HTN, normal PVRI , elevated PCWP, elevated LVEDP, decreased cardiac output, 1 vessel CAD with occluded prox RCA filling via bridging collaterals, hyperdynamic systolic function 11/08/2018 Echo: Mod cLVH with normal systolic function LVEF 60-65%, grade II diastolic dysfunction with elevated filling pressures, hyperdynamic mid cavity with obliteration suggestive of mid cavity obstruction, resting left ventricular outflow tract gradient 25 mmHg increasing to 33 mmHg with Valsalva, mild LAE, normal RV size and fxn, mild-mod MR, mild TR RVSP 33 mmHg 09/22/2017 Dobutamine Myoview: Moderate size inferior perfusion defect wth mild ischemia, normal LVEF 88% 12/16/2018 LE US: No DVT bilaterally, moderate atherosclerosis w/o stenosis bilaterally 12/18/2018 HCT: No acute changes 1. Post asystolic arrest, previous h/o PEA arrest 2. Acute on chronic hypercapneic, hypoxemic respiratory failure with toxic metabolic encephalopathy 3. Acute on chronic diastolic heart failure, moderate functional MS and moderate pulmonary HTN 4. COPD on home O2 5. OSAS noncompliant with cpap 6. 1 vessel CAD h/o RCA stent with h/o demand ischemia 7. Hypertensive heart disease/HOCM of elderly 8. Paroxysmal AF/flutter->NSR ([id number]) off Eliquis 9. Hyperlipidemia 10. Sick euthyroid syndrome 11. CANDY resolved 12. Abnl LFTs 2/2 shock liver improved 13. R/o anoxic encephelopathy 14. Anemia PLAN: 1. MS and Ativan for comfort measures 2. Terminal wean, likely for compassionate extubation today
[2019-07-23] MEDS ORDERED: LORazepam 2 MG/ML SDV VIAL IVPUSH ONE (13:45)
--- NOTE | 2019-07-23 14:30 | PN ---
Progress Note (short form) - Note Progress Note: Pt's family made decision to palliatively extubate the patient today. The ETT was withdraw at 13:52. Ativan 2mg was administered prior to extubation. Patient began desaturating, and became asystolic. Physical examination revealed total body cyanosis, no breath sounds, no heart sounds, no palpable Left radial, no palpable carotid pulses, no cornea reflex, b/l pupils were fixed and dilated and without reaction to light. pronounced at 14:05.
--- NOTE | 2019-07-23 15:03 | PN ---
Teaching Attending Note Name of Resident: Taz Hernández ATTENDING PHYSICIAN STATEMENT I saw and evaluated the patient. I reviewed the resident's note and discussed the case with the resident. I agree with the resident's findings and plan as documented. SUBJECTIVE: Intubated/Mechanically Ventilated, unable to participate in medical interview. No fever/chills. OBJECTIVE: Fevers ongoing, off Levophed, off Versed, poorly responsive. Pupils equal and sluggish. Brainstem reflexes intact. RIJ. Last Vital Signs Temp Pulse Resp BP Pulse Ox 99.7 F H 69 16 108/49 L 93 L 07/23/19 10:00 07/23/19 10:00 07/23/19 12:17 07/23/19 08:00 07/23/19 08:20 HEART: S1, S2, RRR LUNGS: Intubated/Ventilated - good air entry bilaterally ABDOMEN: Soft, non-distended, hypoactive BS. OG tube in situ. EXTREMITIES: Mild edema Current Medications Generic Name Dose Route Start Last Admin Trade Name Freq PRN Reason Stop Dose Admin Morphine Sulfate 100 mg in 100 mls @ 1 mls/hr 07/23/19 07:15 07/23/19 11:00 Morphine 100mg/100ml-0.9% Nacl IVPB 07/24/19 07:14 2 mg/hr TITR JONH 2 mls/hr Infusion Protocol 1 MG/HR ASSESSMENT AND PLAN: 74 year old male with history of HTN, HLD, s/p cardiac arrest, CAD with stent, Atrial Flutter, chronic diastolic heart failure, chronic hypoxic respiratory failure, COPD, pulm HTN, RADHIKA who was brought to the ED after a cardiac arrest at home. 1. Acute on chronic Hypoxic and Hypercapneic Respiratory Failure s/p Cardiac Arrest with prolonged arrest-time Intubated/Ventilated. Management as per Combination Welder Apprentice. Hx of PEA arrest. Unable to wean/extubate with sustainable spontaneous respirations As per discussion with family and clarity developer, for palliative extubation today. 2. Septic ? Cardiogenic Shock s/p arrest Sec to Pneumonia, Staph simulans bacteremia Repeat Blood Cx negative. All Abx stopped. Fevers ongoing ?central due to cerebral edema. 3. Acute Anoxic Encephalopathy with Multi-organ failure secondary to above. Poorly responsive off Versed Sedation Appears to withdraw slightly to painful stimuli LEs. Brainstem reflexes intact. Cerebral edema on brain imaging, no herniation. Mannitol and Keppra discontinued in favor of Morphine drip for palliation. 4. Paroxysmal atrial flutter - Amiodarone drip transitioned to 200mg via NGT, now discontinued due to instatement of comfort measures. Family aware of poor prognosis, for comfort care, Morphine drip, terminal extubation today. DNR.
--- NOTE | 2019-07-23 15:08 | DS ---
Physical Exam: SUBJECTIVE: Patient's family desired compassionate extubation. The ETT was withdraw at 13:52. Ativan 2mg was administered prior to extubation. Patient began desaturating, and became asystolic. Physical examination revealed total body cyanosis, no breath sounds, no heart sounds, no palpable Left radial, no palpable carotid pulses, no cornea reflex, b/l pupils were fixed and dilated and without reaction to light. pronounced at 14:05. OBJECTIVE: PHYSICAL EXAM GENERAL: pt extubated, off pressors and sedation, no response EYES: no pupillary reflex LUNGS: lungs sounds absent HEART: heart sounds absent LABS CBC,CMP WBC 7.9 K/mm3 (4.0-10.0) 07/22/19 05:00 RBC 2.43 M/mm3 (4.00-5.60) L 07/22/19 05:00 Hgb 7.8 GM/dL (11.7-16.9) L 07/22/19 05:00 Hct 23.5 % (35.4-49) L 07/22/19 05:00 MCV 96.6 fl (80-96) H 07/22/19 05:00 MCH 31.9 pg (25.7-33.7) 07/22/19 05:00 MCHC 33.0 g/dl (32.0-35.9) 07/22/19 05:00 RDW 15.6 % (11.9-15.9) 07/22/19 05:00 Plt Count 215 K/MM3 (134-434) 07/22/19 05:00 MPV 8.2 fl (7.5-11.1) D 07/22/19 05:00 Absolute Neuts (auto) 6.7 K/mm3 (1.5-8.0) 07/22/19 05:00 Neutrophils % 84.6 % (42.8-82.8) H 07/22/19 05:00 Neutrophils % (Manual) 67.3 % (42.8-82.8) 07/15/19 01:20 Band Neutrophils % 2.0 % 07/15/19 01:20 Lymphocytes % 3.7 % (8-40) L D 07/22/19 05:00 Lymphocytes % (Manual) 22.8 % (8-40) 07/15/19 01:20 Monocytes % 8.9 % (3.8-10.2) 07/22/19 05:00 Monocytes % (Manual) 3 % (3.8-10.2) L 07/15/19 01:20 Eosinophils % 2.3 % (0-4.5) 07/22/19 05:00 Eosinophils % (Manual) 2.0 % (0-4.5) 07/15/19 01:20 Basophils % 0.5 % (0-2.0) 07/22/19 05:00 Basophils % (Manual) 0.0 % (0-2.0) 07/15/19 01:20 Myelocytes % (Man) 1 % (0-2) 07/15/19 01:20 Promyelocytes % (Man) 0 % (0-2) 07/15/19 01:20 Blast Cells % (Manual) 0 % (0-0) 07/15/19 01:20 Nucleated RBC % 0 % (0-0) 07/22/19 05:00 Metamyelocytes 2 % (0-2) 07/15/19 01:20 Hypochromia 0 07/15/19 01:20 Platelet Estimate Normal 07/15/19 01:20 Polychromasia 1+ 07/15/19 01:20 Poikilocytosis 0 07/15/19 01:20 Anisocytosis 1+ 07/15/19 01:20 Microcytosis 0 07/15/19 01:20 Macrocytosis 1+ 07/15/19 01:20 Sodium 133 mmol/L (136-145) L 07/22/19 05:00 Potassium 4.5 mmol/L (3.5-5.1) 07/22/19 05:00 Chloride 101 mmol/L (98-107) 07/22/19 05:00 Carbon Dioxide 26 mmol/L (21-32) 07/22/19 05:00 Anion Gap 7 MMOL/L (8-16) L 07/22/19 05:00 BUN 35.5 mg/dL (7-18) H 07/22/19 05:00 Creatinine 2.4 mg/dL (0.55-1.3) H 07/22/19 05:00 Est GFR (CKD-EPI)AfAm 29.89 07/22/19 05:00 Est GFR (CKD-EPI)NonAf 25.79 07/22/19 05:00 POC Glucometer 150 UNITS (80-120) 07/22/19 10:57 Random Glucose 149 mg/dL (74-106) H 07/22/19 05:00 Lactic Acid 2.9 mmol/L (0.4-2.0) H* 07/15/19 06:10 Calcium 7.6 mg/dL (8.5-10.1) L 07/22/19 05:00 Phosphorus 4.2 mg/dL (2.5-4.9) 07/22/19 05:00 Magnesium 2.2 mg/dL (1.8-2.4) 07/22/19 05:00 Total Bilirubin 0.3 mg/dL (0.2-1) 07/22/19 05:00 AST 44 U/L (15-37) H 07/22/19 05:00 ALT 40 U/L (13-61) 07/22/19 05:00 Alkaline Phosphatase 169 U/L (45-117) H 07/22/19 05:00 Creatine Kinase 363 U/L (26-308) H 07/16/19 05:15 Creatine Kinase Index 3.0 % (0.0-5.0) 07/16/19 05:15 CK-MB (CK-2) 11.1 ng/mL (0.5-3.6) H 07/16/19 05:15 Troponin I < 0.02 ng/ml (0.00-0.05) 07/16/19 05:15 B-Natriuretic Peptide 1166.3 pg/ml (5-125) H 07/15/19 01:20 Total Protein 5.2 g/dl (6.4-8.2) L 07/22/19 05:00 Albumin 1.8 g/dl (3.4-5.0) L 07/22/19 05:00 Home Medications Medication Instructions Recorded Sertraline HCl [Zoloft] 100 mg PO DAILY 01/09/12 Albuterol Sulfate Inhaler - 1 - 2 puff IH PRN PRN MDD Q4-6 12/15/18 [Ventolin HFA Inhaler -] hours Atorvastatin Ca [Lipitor] 40 mg PO HS 12/15/18 Eplerenone 25 mg PO DAILY 12/15/18 Ezetimibe 10 mg PO DAILY 12/15/18 Lamotrigine [Lamictal] 25 mg PO DAILY 12/15/18 Metoprolol Succinate [Toprol Xl] 12.5 mg PO BID 12/15/18 Ranolazine [Ranexa] 1,000 mg PO BID 12/15/18 Fluticasone/Vilanterol [Breo 1 puff IN DAILY 12/16/18 Ellipta 200-25 Mcg INH] Amiodarone HCl 200 mg PO DAILY 05/29/19 Apixaban [Eliquis] 5 mg PO BID 05/29/19 Bumetanide [Bumex -] 1 mg PO BID 05/29/19 Microbiology 07/18/19 05:34 Blood - Peripheral Venous Blood Culture - Final NO GROWTH AFTER 5 DAYS INCUBATION 07/18/19 06:45 Blood - Peripheral Venous Blood Culture - Final NO GROWTH AFTER 5 DAYS INCUBATION 07/15/19 01:20 Blood - Arterial Blood Culture - Final Staphylococcus Coagulase Neg 07/15/19 01:20 Blood - Arterial Blood Culture - Final Staphylococcus Simulans 07/15/19 05:00 Urine - Urine Shah Urine Culture - Final NO GROWTH OBTAINED HOSPITAL COURSE: Date of Admission:07/15/19 74 y/o M PMH cardiac arrest 11/2018, a-flutter on eliquis, COPD on 4L home o2, pulm HTN, RADHIKA, HFpEF, HTN, HLD, CAD s/p RCA stent, medication noncompliance presented s/p cardiac arrest. As per , the patient was found down at home in a small pool of blood. is a doctor, noted the patient did not have a pulse and called EMS. EMS arrived within 10 mins and began resuscitative efforts w/ TRACY system but could not intubate in the field. On arrival to ED patient was in asystole, then PEA; patient received a total of 5 pushes epi, 1 x bicarb, ROSC achieved, estimated time 30 mins. Patient was hypotensive in ED, fem line placed, levo & amio gtt initiated. Intubated in ED. Pt was transferred to ICU and placed on pressors, sedation and amiodarone. AC/eliquis was held for possible UGI bleed, stress-induced ulcers placed on empiric IV PPI and kept monitoring for neurological improvement. Pt was Loaded with levetircetam 1000 mg IV over 1 hr to observe the spontaneous arm movements. Then was continued on levetiracetam 500 mg q 12 hrs. Pt Blood cultures began growing Staph simulans, leading to bacteremia and was treated with Ceftriaxone 1 g. Mannitol was added after CT showed brain edema w/out evidence of subfalcine or inferior herniation , no intracranial hemorrhage or gross focal acute infract, no shift of midline structure. Residual mild soft tissue swelling/hematoma of the scalp over the left forehead. After all intervention and recommendation, pt's prognosis was poor and he kept deteriorating. Pt's neurological functions did not return, only minimal brainstem reflexes were present. After lengthy discussion between ICU team and family, family decided to consider compassionate extubation and started morphine drip. today, the ETT was withdrawn at 13:52. Ativan 2mg was administered prior to extubation. Patient began desaturating, and became asystolic. Physical examination revealed total body cyanosis, no breath sounds, no heart sounds, no palpable Left radial, no palpable carotid pulses, no cornea reflex, b/l pupils were fixed and dilated and without reaction to light. pronounced at 14:05. EKG on arrival showing junctional bradycardia Echo was performed showing preserved EF, severely dilated LA, severe mitral annular calcification, moderate . 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 L frontal/ periorbital scalp injury CT head for evaluation of anoxic Brain injury- brain edema w/out evidence of subfalcine or inferior herniation, no intracranial hemorrhage or gross focal acute infract, no shift of midline structure. Residual mild soft tissue swelling /hematoma of the scalp over the left forehead. (CAD s/p DAVID prox RCA 08/23/2003, DAVID for prox RCA ISR 10/03/2004, POBA prox RCA 12/12/2018, ENTRY TECH prox RCA 12/21/2012) Date of Discharge: 07/23/19 Minutes to complete discharge: 40 Discharge Summary Problems reviewed: Yes Reason For Visit: CARDIAC ARREST Current Active Problems Bacteremia (Acute) Cardiac arrest (Acute) Condition: - Instructions Referrals: Charis Robles [Primary Care Provider] - Disposition: - Home Medications Comprehensive Discharge Medication List: Ambulatory Orders Sertraline HCl [Zoloft] 100 mg PO DAILY 01/09/12 Albuterol Sulfate Inhaler - [Ventolin HFA Inhaler -] 1 - 2 puff IH PRN PRN MDD Q4-6 hours 12/15/18 Atorvastatin Ca [Lipitor] 40 mg PO HS 12/15/18 Eplerenone 25 mg PO DAILY 12/15/18 Ezetimibe 10 mg PO DAILY 12/15/18 Lamotrigine [Lamictal] 25 mg PO DAILY 12/15/18 Metoprolol Succinate [Toprol Xl] 12.5 mg PO BID 12/15/18 Ranolazine [Ranexa] 1,000 mg PO BID 12/15/18 Fluticasone/Vilanterol [Breo Ellipta 200-25 Mcg INH] 1 puff IN DAILY 12/16/18 Amiodarone HCl 200 mg PO DAILY 05/29/19 Apixaban [Eliquis] 5 mg PO BID 05/29/19 Bumetanide [Bumex -] 1 mg PO BID 05/29/19 This patient is new to me today: Yes Date on this admission: 07/24/19 Emergency Visit: Yes ED Registration Date: 07/15/19 Care time: The patient presented to the Emergency Department on the above date and was hospitalized for further evaluation of their emergent condition. Critical Care patient: No - Discharge Referral Referred to [facility] No ATTENDING PHYSICIAN STATEMENT I saw and evaluated the patient. I reviewed the resident's note and discussed the case with the resident. I agree with the resident's findings and plan as documented. SUBJECTIVE: OBJECTIVE: ASSESSMENT AND PLAN:
[2019-07-23 17:13] VITALS: BP 104/45; PULSE 71
== END 2019-07-23 14:05 | disposition expired | DRG 870 ==
LOC: JER 00:34 → JERBED 02:49 → JICU 11:30
PROVIDERS: ADMIT Internal Medicine
PROC: 5A1955Z Respiratory Ventilation, Greater than 96 Consecutive Hours (ICD-10-PCS; principal; 2019-07-15)
PROC: 0BH17EZ Insertion of Endotracheal Airway into Trachea, Via Natural or Artificial Opening (ICD-10-PCS; 2019-07-15)
PROC: 0DH67UZ Insertion of Feeding Device into Stomach, Via Natural or Artificial Opening (ICD-10-PCS; 2019-07-15)
PROC: 3E0G76Z Introduction of Nutritional Substance into Upper GI, Via Natural or Artificial Opening (ICD-10-PCS; 2019-07-15)
PROC: 06HM33Z Insertion of Infusion Device into Right Femoral Vein, Percutaneous Approach (ICD-10-PCS; 2019-07-15)
PROC: 5A12012 Performance of Cardiac Output, Single, Manual (ICD-10-PCS; 2019-07-15)
PROC: 05HM33Z Insertion of Infusion Device into Right Internal Jugular Vein, Percutaneous Approach (ICD-10-PCS; 2019-07-17)
PROC: B543ZZA Ultrasonography of Right Jugular Veins, Guidance (ICD-10-PCS; 2019-07-17)
DX: A41.1 Sepsis due to other specified staphylococcus (principal); I50.33 Acute on chronic diastolic (congestive) heart failure; J96.22 Acute and chronic respiratory failure with hypercapnia; J96.21 Acute and chronic respiratory failure with hypoxia; G92 Toxic encephalopathy; K72.00 Acute and subacute hepatic failure without coma; G93.6 Cerebral edema; R65.21 Severe sepsis with septic shock; J18.9 Pneumonia, unspecified organism; N17.9 Acute kidney failure, unspecified; I48.92 Unspecified atrial flutter; D62 Acute posthemorrhagic anemia; E87.2 Acidosis; G93.1 Anoxic brain damage, not elsewhere classified; I42.2 Other hypertrophic cardiomyopathy; J44.9 Chronic obstructive pulmonary disease, unspecified; Z99.81 Dependence on supplemental oxygen; G47.33 Obstructive sleep apnea (adult) (pediatric); I27.20 Pulmonary hypertension, unspecified; I25.10 Atherosclerotic heart disease of native coronary artery without angina pectoris; I11.0 Hypertensive heart disease with heart failure; S00.03XA Contusion of scalp, initial encounter; I35.0 Nonrheumatic aortic (valve) stenosis; I48.0 Paroxysmal atrial fibrillation; Z79.01 Long term (current) use of anticoagulants; R74.0 Nonspecific elevation of levels of transaminase and lactic acid dehydrogenase [LDH]; D53.9 Nutritional anemia, unspecified; Z91.14 Patient's other noncompliance with medication regimen; G25.3 Myoclonus; Z87.891 Personal history of nicotine dependence; E78.5 Hyperlipidemia, unspecified; R73.9 Hyperglycemia, unspecified; E83.41 Hypermagnesemia; E66.9 Obesity, unspecified; F32.9 Major depressive disorder, single episode, unspecified; E83.39 Other disorders of phosphorus metabolism; X58.XXXA Exposure to other specified factors, initial encounter; Y93.89 Activity, other specified; Y92.89 Other specified places as the place of occurrence of the external cause; Y99.8 Other external cause status; Z68.32 Body mass index [BMI] 32.0-32.9, adult; I46.9 Cardiac arrest, cause unspecified
CPT/HCPCS: 31500; 36415; 36600; 70450-TC; 71045-TC-FY; 80048; 80053; 81003; 82550; 82553; 82803; 82962; 83605; 83735; 83880; 84100; 84484; 85025; 85027; 85610; 85730; 86850; 86900; 86901; 87040; 87086; 87186; 93005; 93010; 93306-TC; 94002; 99285-25; J0131; J0282; J1644; J7030